=== PATIENT | female | born 1950 | race Caucasian/White ===

== ENCOUNTER → 2017-09-19 16:08 | Outpatient (CLI) | payer MEDICARE, OTHER, SELFPAY ==
[2016-10-09 01:08] VITALS: BP 102/70
[2017-09-19 17:22] LABS: Absolute Lymphocyte Count 1.97 X10^3/ul (0.83-4.51); Absolute Neutrophil Count 3.7 X10^3/uL (2.0-7.7); Basophil# 0.03 X10^3/uL; Basophil% 0.4 % (0-1); Eosinophil# 0.22 X10^3/uL; Eosinophils% 3.3 % (0-5); Hematocrit 34.5 % (37-47); Hemoglobin 11.1 g/dl (12.0-15.0); Lymphocyte # 1.97 X10^3/ul (4.0); Lymphocyte % 29.4 % (19-41); Mean Corp Hgb Conc 32.2 g/gl (32-36); Mean Corpuscular Hgb 29.9 pg (27.0-32.0); Monocyte# 0.74 X10^3/uL; Monocyte% 11.1 % (0-10); Neutrophil # 3.72 X10^3/uL (2.7-7.7); Neutrophil % 55.7 % (47-70); POSITIVE COUNT NO; POSITIVE DIFFERENTIAL NO; POSITIVE MORPHOLOGY NO; Platelet Count 425 K/mm3 (150-450); RBC Distribution Width CV 14.1 % (11.6-14.6); RBC Distribution Width SD 48.2 fl (35.1-43.9); Red Blood Count 3.71 M/mm3 (4.2-5.4); White Blood Count 6.7 K/mm3 (4.4-11.0)
[2017-09-19 17:39] LABS: Valproic Acid (Depakene) Level 59 ug/mL (50-100)
[2017-09-19 17:53] LABS: ALB/GLOB Ratio 0.7 RATIO (0.9-2.4); AST(SGOT) 19 U/L (15-37); Alanine Aminotransfer ALT/SGPT 26 U/L (13-56); Albumin, Serum 3.2 g/dL (3.2-5.0); Alkaline Phosphatase 87 U/L (45-117); Anion Gap 8 (5-15); BUN 24 mg/dL (7-18); BUN/Creat Ratio 24.5 RATIO (10-20); Calcium,Total 8.9 mg/dL (8.5-10.1); Chloride 104 mmol/L (98-107); Creatinine, Serum 0.98 mg/dL (0.55-1.02); EST Glomerular Filtration Rate 60 mL/min (>60); Est Glom Filt Rate - Afr Amer 73 mL/min (>60); Globulin 4.4 g/dL (2.2-4.2); Glucose 87 mg/dL (74-106); Potassium 4.2 mmol/L (3.5-5.1); Protein, Total 7.6 g/dL (6.4-8.2); Sodium Level 139 mmol/L (136-145)
== END ==
PROVIDERS: Family Provider Family Medicine; PCP Family Medicine
DX: F31.70 Bipolar disorder, currently in remission, most recent episode unspecified (principal)
CPT/HCPCS: 36415; 80053; 80164; 85025

== ENCOUNTER → 2017-10-21 11:00 | Outpatient (CLI) | payer MEDICARE, OTHER, SELFPAY ==
[2017-10-23 15:54] LABS: Absolute Lymphocyte Count 1.77 X10^3/ul (0.83-4.51); Absolute Neutrophil Count 2.6 X10^3/uL (2.0-7.7); Basophil# 0.02 X10^3/uL; Basophil% 0.4 % (0-1); Eosinophil# 0.23 X10^3/uL; Eosinophils% 4.5 % (0-5); Hematocrit 36.8 % (37-47); Hemoglobin 11.9 g/dl (12.0-15.0); Lymphocyte # 1.77 X10^3/ul (4.0); Lymphocyte % 34.7 % (19-41); Mean Corp Hgb Conc 32.3 g/gl (32-36); Mean Corpuscular Hgb 30.7 pg (27.0-32.0); Mean Corpuscular Volume 94.8 fL (81-99); Mean Platelet Vol. 10.3 fl (6.2-12.0); Monocyte# 0.44 X10^3/uL; Monocyte% 8.6 % (0-10); Neutrophil # 2.64 X10^3/uL (2.7-7.7); Neutrophil % 51.8 % (47-70); Platelet Count 274 K/mm3 (150-450); RBC Distribution Width CV 15.7 % (11.6-14.6); RBC Distribution Width SD 54.3 fl (35.1-43.9); Red Blood Count 3.88 M/mm3 (4.2-5.4); White Blood Count 5.1 K/mm3 (4.4-11.0)
[2017-10-23 16:03] LABS: POSITIVE COUNT NO; POSITIVE DIFFERENTIAL NO; POSITIVE MORPHOLOGY NO
[2017-10-23 16:13] LABS: ALB/GLOB Ratio 0.8 RATIO (0.9-2.4); AST(SGOT) 19 U/L (15-37); Alanine Aminotransfer ALT/SGPT 25 U/L (13-56); Albumin, Serum 3.4 g/dL (3.2-5.0); Alkaline Phosphatase 76 U/L (45-117); Anion Gap 4 (5-15); BUN 19 mg/dL (7-18); BUN/Creat Ratio 19.5 RATIO (10-20); Calcium,Total 8.8 mg/dL (8.5-10.1); Chloride 105 mmol/L (98-107); Creatinine, Serum 0.97 mg/dL (0.55-1.02); EST Glomerular Filtration Rate 61 mL/min (>60); Est Glom Filt Rate - Afr Amer 74 mL/min (>60); Globulin 4.1 g/dL (2.2-4.2); Glucose 92 mg/dL (74-106); Potassium 4.7 mmol/L (3.5-5.1); Protein, Total 7.5 g/dL (6.4-8.2); Sodium Level 139 mmol/L (136-145)
[2017-10-23 16:21] LABS: Valproic Acid (Depakene) Level 71 ug/mL (50-100)
--- OUTSIDE RECORDS SUMMARY | 2017-12-01 18:19 | XMS RPT_ITS | Clinical Summary ---
:1950 Author Organization [facility] Address [address] [place] [address] Phone Care Team Providers Name Role Phone Alvina VIVAS, Wiley Lerma Conditions or Problems Problem Name Problem Onset Status Entry Provider Comment Standard Annotate Code Date Date Description Nonrheumatic I34.9 Active Atif Velez Nonrheumatic mitral valve (ICD-10-CM 04/17 04/17 Moodispaw mitral valve disorder, ) disorder, unspecified unspecified Body mass Z68.21 Active Atif Velez Body mass index index (BMI) (ICD-10-CM 04/17 04/17 Moodispaw (BMI) 21.0-21.99, ) 21.0-21.9, adult adult Hypothyroidism 52535923 Active Patricia Hernandez Hypothyroidism (SNOMED 04/16 04/[address]) EDEMA 385653316 Active Patricia L Edema (SNOMED 04/16 04/[address]) Medications Medication Instructions Start Stop Generic Name NDC Provider Date Date FUROSEMIDE 40 MG One tablet by / FUROSEMIDE [id number] Atif Velez TABS mouth daily 06 Moodishenrique DUMONT YANETH-C TABS One tablet by / BIOFLAVONOID [id number] Wiley Villa Alvina mouth daily 02 PRODUCTS TABS MEETING/EVENT PLANNER CALCIUM-MAGNESIU One tablet by / CALCIUM-MAGNESIU [id number] Wiley Tinsley M-VITAMIN D mouth daily 02 M-VITAMIN D MEETING/EVENT PLANNER 200-100-33.3 MG-MG-UNIT CAPS EQL LECITHIN One tablet by / LECITHIN [id number] Wiley Tinsley 1200 MG CAPS mouth daily 02 MEETING/EVENT PLANNER TURMERIC One tablet by / TURMERIC [id number] Wiley Tinsley CURCUMIN 500 MG mouth three 02 MEETING/EVENT PLANNER CAPS times daily STRESS 500 One tablet by B [id number] Wiley Tinsley B-COMPLEX TABS mouth daily 02 [id number]-[id number] MEETING/EVENT PLANNER ACID WOMENS One tablet by / MULTIPLE [id number] Wiley Tinsley MULTIVITAMIN mouth daily 02 VITAMINS-MINERAL MEETING/EVENT PLANNER TABS S SLEEP CAPS Two tablets by / VCXEORX-AQYVK-BL [id number] Wiley Villa Roof mouth daily 02 SP-UOJFW-GLORY MEETING/EVENT PLANNER FERROUS One tablet by / FERROUS [id number] Wiley Alvina GLUCONATE 225 mouth daily 02 GLUCONATE MEETING/EVENT PLANNER (27 Fe) MG TABS PREDNISONE 5 MG One tablet by / PREDNISONE [id number] Patricia Hernandez TABS mouth daily 06 Naveen HUGHES PREDNISONE 5 MG One tablet by PREDNISONE [id number] Atif Vleez TABS mouth daily Robbie DUMONT FUROSEMIDE 20 MG One tablet by / FUROSEMIDE [id number] Patricia Hernandez TABS mouth daily 06 Naveen HUGHES MELATONIN 3 MG Two tablet by / MELATONIN 23006250443 Patricia Hernandez TABS mouth at 06 Naveen RN bedtime. As needed MELATONIN 3 MG Two tablet by MELATONIN [id number] Wiley Tinsley TABS mouth at 06 / MEETING/EVENT PLANNER bedtime. As needed FERROUS SULFATE One tablet by / FERROUS SULFATE [id number] Wiley Tinsley 325 (65 Fe) MG mouth daily 02 MEETING/EVENT PLANNER TABS DEPAKOTE ER 250 One tablet by / DIVALPROEX [id number] Patricia Hernandez MG [id number] mouth daily @ 06 SODIUM Naveen HUGHES bedtime LEVOTHYROXINE One tablet by / LEVOTHYROXINE [id number] Patricia Hernandez SODIUM 25 MCG mouth daily 06 SODIUM Naveen RN TABS Medications Administered No information available. Allergies, Adverse Reactions, Alerts Allergy Name Reaction Description Start Date Severity Status Provider CODEINE Critical Active Patricia Hodge RN Results Date Name Value Unit Range Flag Description Replaced Document: Midmark ECG Observations EKG INTERP Sinus Rhythm WITHIN electrocardiogram interpretation NORMAL LIMITS EKG T AXIS 25 deg T wave axis, electrocardiogram EKG QRS AXIS -9 deg QRS axis, electrocardiogram EKG PWAVAXIS 65 deg P wave axis, electrocardiogram QRS INTERVAL 84 ms QRS duration, electrocardiogram ZZ-GE-unk 429 ms GE use only - for LinkLogic import when terms are not otherwise specified QT INTERVAL new path ms QT interval, electrocardiogram OR INTERVAL 136 ms OR interval, electrocardiogram EKGHRTRATE 78 BPM heart rate on electrocardiogram Clinical Lists Update: Preload TSH 2.04 u[iU]/mL thyroid stimulating hormone, serum T4, TOTAL 6.1 ug/dL thyroxine, serum, total LDL 90 mg/dL Cholesterol in LDL [Mass/volume] in Serum or Plasma HDL 66 mg/dL H Cholesterol in HDL [Mass/volume] in Serum or Plasma CHOLESTEROL 177 mg/dL Cholesterol [Mass/volume] in Serum or Plasma TRIGLYCRDES 104 mg/dL Triglyceride [Mass/volume] in Serum or Plasma GLOBULIN 2.4 globulin, serum GLUCOSE SER 118 mg/dL H blood glucose CALCIUM 9.6 mg/dL calcium, serum BUN/CREAT 21 urea nitrogen/creatinine ratio, serum CREATININE 1.4 mg/dL H creatinine, serum BUN 30 mg/dL H urea nitrogen, blood CO2 31 mmol/L carbon dioxide, venous blood CHLORIDE 100 mmol/L chloride, serum POTASSIUM 4.5 mmol/L potassium, serum SODIUM 140 mmol/L sodium, serum PROTEIN, TOT 6.7 g/dL protein, total, serum SGOT (AST) 22 U/L aspartate aminotransferase (SGOT), serum SGPT (ALT) 18 U/L alanine aminotransferase (SGPT), serum ALK PHOS 56 U/L alkaline phosphatase, serum BILI DIRECT 0.11 mg/dL bilirubin, serum, direct BILI TOTAL 0.30 mg/dL bilirubin, serum, total ALBUMIN 2.8 g/dL L albumin, serum MPV 11.0 fL mean platelet volume PLATELETS 158 10*3/mm3 platelet count RDW 15.9 % H red blood cell distribution width MCHC RBC 33.0 g/dL mean corpuscular hemoglobin concentration , RBC MCH 32.6 pg H mean corpuscular hemoglobin, RBC MCV 98.6 fL mean corpuscular volume, RBC HCT 35.1 % L hematocrit, blood HGB 11.6 g/dL L hemoglobin, blood RBC M/UL 3.56 10*6/uL L red blood count WBC BLOOD 5.5 10*9/L leukocyte (white blood cells) count, blood CARDEFECHO 60 % Left ventricular Ejection fraction Office Visit: R FALLRSKAVISHES No Fall risk assessment MEDS REVIEW Done Documentation of current medications (procedure) SMOK STATUS Former smoker Tobacco use [facility] Plan of Care Type Date Detail Appointment 01:00 PM Atif Avalos MD, [address] [facility], [address] , [place], [address], Pending order PFM Pending order Follow Up Appt 1 year Pending order MMM Pending order Follow Up Appt 6 weeks Pending order Echocardiogram (complete) Pending order X-Ray, Chest, PA & Lateral Procedures Code Procedure Name Date Entry Date CPT-78017 EKG (In office) F/U MMM MMM FUA 6 weeks Follow Up Appt 6 weeks Echo Echocardiogram (complete) Vital Signs Date Name Value Unit Description BMI (Body Mass Index) 22.63 kg/m2 Body Mass Index [Ratio] BP Diastolic 78 mm[Hg] blood pressure, diastolic - 8462-4 BP Systolic 122 mm[Hg] blood pressure, systolic - 8480-6 Heart Rate 72 /min pulse rate E&M - 8867-4 Height 58 [in_us] height E&M - 8302-2 Weight Measured 108.3 [lb_av] weight E&M - 3141-9 Height 147.32 cm height in centimeters E&M Respiratory Rate 18 /min respiratory rate E&M - 9279-1 Weight Measured 47.63 kg weight in kilograms E&M
--- OUTSIDE RECORDS SUMMARY | 2017-12-01 18:19 | XMS RPT_ITS | Clinical Summary ---
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 Atif Velez Nonrheumatic mitral valve (ICD-10-CM 04/17 04/17 Robbie mitral valve disorder, ) disorder, unspecified unspecified Body mass Z68.21 Active Atif Velez Body mass index index (BMI) (ICD-10-CM 04/17 04/17 Robbie (BMI) 21.0-21.99, ) 21.0-21.9, adult adult Hypothyroidism 28084811 Active Patricia Hernandez Hypothyroidism (SNOMED 04/16 04/[address]) EDEMA 195723844 Active Patricia Hernandez Edema (SNOMED 04/16 04/[address]) Medications Medication Instructions Start Stop Generic Name NDC Provider Date Date PREDNISONE 5 MG One tablet by PREDNISONE [id number] Patricia Hernandez TABS mouth daily 06 Naveen HUGHES PREDNISONE 5 MG One tablet by PREDNISONE [id number] Atif Velez TABS mouth daily Robbie DUMONT MELATONIN 3 MG Two tablet by MELATONIN 33874993094 Patricia Hernandez TABS mouth at 06 Naveen HUGHES bedtime. As needed DEPAKOTE ER 250 One tablet by DIVALPROEX [id number] Patricia BOOKER [id number] mouth daily @ 06 SODIUM Naveen HUGHES bedtime FUROSEMIDE 20 MG One tablet by FUROSEMIDE 92678968365 Patricia Hernandez TABS mouth daily 06 Naveen HUGHES LEVOTHYROXINE One tablet by LEVOTHYROXINE [id number] Patricia Hernandez SODIUM 25 MCG mouth daily 06 SODIUM Naveen RN TABS Medications Administered No information available. Allergies, Adverse Reactions, Alerts Allergy Name Reaction Description Start Date Severity Status Provider CODEINE Critical Active Patricia Hodge RN Results Date Name Value Unit Range Flag Description Office Visit SMOK STATUS Former smoker Tobacco use [facility] FALLRSKASSES No Fall risk assessment MEDS REVIEW Done Documentation of current medications (procedure) Replaced Document: Midmark ECG Observations EKG INTERP [...] INTERVAL new path ms QT interval, electrocardiogram [place] INTERVAL 136 ms [place] interval, electrocardiogram EKGHRTRATE 78 BPM heart rate [...] 10*9/L leukocyte (white blood cells) count, blood Plan of Care Type Date Detail Appointment 11:00 AM Wiley Tinsley NP, [address], [address], [place], [address], Pending order MMM Pending order Follow Up Appt 6 weeks Pending order Echocardiogram (complete) Pending order X-Ray, Chest, PA & Lateral Pending order Echocardiogram (complete) Procedures Code Procedure Name Date Entry Date CPT-36222 EKG (In office) F/U MMM MMM FUA 6 weeks Follow Up Appt 6 weeks Vital Signs Date Name Value Unit Description BMI (Body Mass Index) 21.94 kg/m2 Body Mass Index [Ratio] BP Diastolic 64 mm[Hg] blood pressure, diastolic - 8462-4 BP Systolic 112 mm[Hg] blood pressure, systolic - 8480-6 Heart Rate 80 /min pulse rate E&M - 8867-4 Height 58 [in_us] height E&M - 8302-2 Height 147.32 cm height in centimeters E&M Respiratory Rate 18 /min respiratory rate E&M - 9279-1 Weight Measured 105 [lb_av] weight E&M - 3141-9 Weight Measured 47.63 kg weight in kilograms E&M
--- OUTSIDE RECORDS SUMMARY | 2017-12-01 18:19 | XMS RPT_ITS | Clinical Summary ---
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 Atif Velez Nonrheumatic mitral valve (ICD-10-CM 04/17 04/17 Moodispaw mitral valve disorder, ) disorder, unspecified unspecified Body mass Z68.21 Active Atif Velez Body mass index index (BMI) (ICD-10-CM 04/17 04/17 Moodispaw (BMI) 21.0-21.99, ) 21.0-21.9, adult adult Hypothyroidism 20567774 Active Patricia Hernandez Hypothyroidism (SNOMED 04/16 04/[address]) EDEMA 864153247 Active Patricia L Edema (SNOMED 04/16 04/[address]) Medications Medication Instructions Start Stop Generic Name NDC Provider Date Date FUROSEMIDE 40 MG One tablet by / FUROSEMIDE [id number] Atif Velez TABS mouth daily 06 Moodisparome DUMONT YANETH-C TABS One tablet by / BIOFLAVONOID 25947773394 Wiley Tinsley mouth daily 02 PRODUCTS TABS CUSTOMS OFFICER CALCIUM-MAGNESIU One tablet by / CALCIUM-MAGNESIU 75896126010 Wiley Tinsley M-VITAMIN D mouth daily 02 M-VITAMIN D CUSTOMS OFFICER 200-100-33.3 MG-MG-UNIT CAPS EQL LECITHIN One tablet by / LECITHIN 23063295954 Wiley Tinsley 1200 MG CAPS mouth daily 02 CUSTOMS OFFICER TURMERIC One tablet by / TURMERIC 69390226200 Wiley Tinsley CURCUMIN 500 MG mouth three 02 CUSTOMS OFFICER CAPS times daily FERROUS SULFATE One tablet by / FERROUS SULFATE 94208488601 Wiley Tinsley 325 (65 Fe) MG mouth daily 02 CUSTOMS OFFICER TABS STRESS 500 One tablet by B [id number] Wiley Tinsley B-COMPLEX TABS mouth daily 02 [id number]-I-BJVKT CUSTOMS OFFICER ACID WOMENS One tablet by MULTIPLE 39181453956 Wiley Tinsley MULTIVITAMIN mouth daily 02 VITAMINS-MINERAL CUSTOMS OFFICER TABS S SLEEP CAPS Two tablets by / ANSCUZB-BWPXZ-QK 13639698025 Wiley Villa Roof mouth daily 02 [id number] CUSTOMS OFFICER PREDNISONE 5 MG One tablet by / PREDNISONE 86006974146 Patricia L TABS mouth daily 06 Hodge RN PREDNISONE 5 MG One tablet by PREDNISONE 83509352903 Atif Velez TABS mouth daily Robbie DUMONT FUROSEMIDE 20 MG One tablet by FUROSEMIDE 85262780462 Patricia Hernandez TABS mouth daily 06 Naveen RN MELATONIN 3 MG Two tablet by / MELATONIN 20350710494 Patricia L TABS mouth at 06 Naveen RN bedtime. As needed MELATONIN 3 MG Two tablet by MELATONIN 36421424919 Wiley Villa Roof TABS mouth at 06 /02 CUSTOMS OFFICER bedtime. As needed DEPAKOTE ER 250 One tablet by / DIVALPROEX [id number] Patricia Hernandez MG [id number] mouth daily @ 06 SODIUM Naveen RN bedtime LEVOTHYROXINE One tablet by / LEVOTHYROXINE [id number] Patricia Hernandez SODIUM 25 MCG mouth daily [...] INTERVAL new path ms QT interval, electrocardiogram [place] INTERVAL 136 ms [place] interval, electrocardiogram EKGHRTRATE 78 BPM heart rate [...] % Left ventricular Ejection fraction Office Visit: JHR FALLRSKAJOHN No Fall risk assessment MEDS REVIEW Done Documentation of current medications (procedure) SMOK STATUS Former smoker Tobacco use [facility] Plan of Care Type Date Detail Appointment 01:00 PM Atif Avalos MD, [address] [facility], [address] , [place], [address], Pending order PFM Pending order Follow Up Appt 1 year Pending order MMM Pending order Follow Up Appt 6 weeks Pending order Echocardiogram (complete) Pending order X-Ray, Chest, PA & Lateral Procedures Code Procedure Name Date Entry Date CPT-73127 EKG (In office) F/U MMM MMM FUA [...]
--- OUTSIDE RECORDS SUMMARY | 2017-12-01 18:19 | XMS RPT_ITS | Clinical Summary ---
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 Atif Velez Nonrheumatic mitral valve (ICD-10-CM 04/17 04/17 Sebastiánishenrique mitral valve disorder, ) disorder, unspecified unspecified Body mass Z68.21 Active Atif Velez Body mass index index (BMI) (ICD-10-CM 04/17 04/17 Robbie (BMI) 21.0-21.99, ) 21.0-21.9, adult adult Hypothyroidism 36441154 Active Patricia Hernandez Hypothyroidism (SNOMED 04/16 04/[address]) EDEMA 047618510 Active Patricia Hernandez Edema (SNOMED 04/16 04/[address]) Medications Medication Instructions Start Stop Generic Name NDC Provider Date Date PREDNISONE 5 MG One tablet by PREDNISONE [id number] Patricia Hernandez TABS mouth daily 06 Naveen HUGHES PREDNISONE 5 MG One tablet by PREDNISONE 06459049159 Atif Velez TABS mouth daily Robbie DUMONT MELATONIN 3 MG Two tablet by MELATONIN 82224388880 Patricia Hernandez TABS mouth at 06 Naveen HUGHES bedtime. As needed DEPAKOTE ER 250 One tablet by DIVALPROEX 69063245200 Patricia BOOKER [id number] mouth daily @ 06 SODIUM Naveen HUGHES bedtime FUROSEMIDE 20 MG One tablet by FUROSEMIDE 54064439407 Patricia Hernandez TABS mouth daily 06 Naveen HUGHES LEVOTHYROXINE One tablet by LEVOTHYROXINE 65920859187 Patricia Hernandez SODIUM 25 MCG mouth daily [...] INTERVAL new path ms QT interval, electrocardiogram [place] INTERVAL 136 ms [place] interval, electrocardiogram EKGHRTRATE 78 BPM heart rate [...] Plan of Care Type Date Detail Appointment 11:30 AM Atif Avalos MD, [address], [address] , [place], [address], Appointment 11:00 AM Wiley Tinsley NP, [address], [address], [place], [address], Pending order MMM Pending order Follow Up Appt 6 weeks Pending order Echocardiogram (complete) Pending order X-Ray, Chest, PA & Lateral Pending order Echocardiogram (complete) Procedures Code Procedure Name Date Entry Date CPT-22117 EKG (In office) F/U MMM MMM FUA 6 weeks Follow Up Appt 6 weeks Vital Signs No information available.
--- OUTSIDE RECORDS SUMMARY | 2017-12-01 18:19 | XMS RPT_ITS | Clinical Summary ---
:1950 Author Organization [facility] Address [address] [place] [address] Phone Care Team Providers Name Role Phone [...] (BMI) 21.0-21.99, ) 21.0-21.9, adult adult Hypothyroidism 20448345 Active Patricia Hernandez Hypothyroidism (SNOMED 04/16 04/[address]) EDEMA 033146573 Active Patricia L Edema (SNOMED 04/16 04/[address]) Medications Medication Instructions Start Stop Generic Name NDC Provider Date Date FUROSEMIDE 40 MG One tablet by / FUROSEMIDE [id number] Atif Velez TABS mouth daily 06 Moodishenrique DUMONT YANETH-C TABS One tablet by / BIOFLAVONOID 12285456634 Wiley Villa Alvina mouth daily 02 PRODUCTS TABS SERVICES CLERK CALCIUM-MAGNESIU One tablet by / CALCIUM-MAGNESIU 10726428932 Wiley Tinsley M-VITAMIN D mouth daily 02 M-VITAMIN D SERVICES CLERK 200-100-33.3 MG-MG-UNIT CAPS EQL LECITHIN One tablet by / LECITHIN 81463810336 Wiley Tinsley 1200 MG CAPS mouth daily 02 SERVICES CLERK TURMERIC One tablet by / TURMERIC 96492342696 Wiley Tinsley CURCUMIN 500 MG mouth three 02 SERVICES CLERK CAPS times daily STRESS 500 One tablet by B 39946841528 Wiley Tinsley B-COMPLEX TABS mouth daily 02 QBTYYJI-X-GUPNQ SERVICES CLERK ACID WOMENS One tablet by / MULTIPLE 99708353329 Wiley Tinsley MULTIVITAMIN mouth daily 02 VITAMINS-MINERAL SERVICES CLERK TABS S SLEEP CAPS Two tablets by / LDXTFDK-BJCJJ-SE 71442438160 Wiley Villa Roof mouth daily 02 AW-CJARI-MJOSM SERVICES CLERK FERROUS One tablet by / FERROUS 15931980101 Wiley Alvina GLUCONATE 225 mouth daily 02 GLUCONATE SERVICES CLERK (27 Fe) MG TABS PREDNISONE 5 MG One tablet by / PREDNISONE 74721790247 Patricia Hernandez TABS mouth daily 06 Naveen HUGHES PREDNISONE 5 MG One tablet by PREDNISONE 63922558126 Atif Velez TABS mouth daily Robbie DUMONT FUROSEMIDE 20 MG One tablet by / FUROSEMIDE 00806428980 Patricia Hernandez TABS mouth daily 06 Naveen HUGHES MELATONIN 3 MG Two tablet by / MELATONIN 00949186480 Patricia Hernandez TABS mouth at 06 Naveen RN bedtime. As needed MELATONIN 3 MG Two tablet by MELATONIN 29795806032 Wiley Tinsley TABS mouth at 06 / SERVICES CLERK bedtime. As needed FERROUS SULFATE One tablet by / FERROUS SULFATE 11639822480 Wiley Tinsley 325 (65 Fe) MG mouth daily 02 SERVICES CLERK TABS DEPAKOTE ER 250 One tablet by / DIVALPROEX 59513517793 Patricia Hernandez MG [id number] mouth daily @ 06 SODIUM Naveen HUGHES bedtime LEVOTHYROXINE One tablet by / LEVOTHYROXINE 48499314516 Patricia Hernandez SODIUM 25 MCG mouth daily [...] INTERVAL new path ms QT interval, electrocardiogram [place] INTERVAL 136 ms [place] interval, electrocardiogram EKGHRTRATE 78 BPM heart rate [...] (procedure) SMOK STATUS Former smoker Tobacco use [facility] Plan of Care Type Date Detail Appointment 01:00 PM Atif Avalos MD, [address] [facility], [address] , [place], [address], Pending order PFM Pending order Follow Up Appt 1 year Pending order MMM Pending order Follow Up Appt 6 weeks Pending order Echocardiogram (complete) Pending order X-Ray, Chest, PA & Lateral Procedures Code Procedure Name Date Entry Date CPT-76786 EKG (In office) F/U MMM MMM FUA [...]
--- OUTSIDE RECORDS SUMMARY | 2017-12-01 18:19 | XMS RPT_ITS | Clinical Summary ---
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 Atif Velez Nonrheumatic mitral valve (ICD-10-CM 04/17 04/17 Moodispaw mitral valve disorder, ) disorder, unspecified unspecified Body mass Z68.21 Active Atif Velez Body mass index index (BMI) (ICD-10-CM 04/17 04/17 Robbie (BMI) 21.0-21.99, ) 21.0-21.9, adult adult Hypothyroidism 40865175 Active Patricia Hernandez Hypothyroidism (SNOMED 04/16 04/[address]) EDEMA 497242744 Active Patricia Hernandez Edema (SNOMED 04/16 04/[address]) Medications Medication Instructions Start Stop Generic Name NDC Provider Date Date FUROSEMIDE 40 MG One tablet by FUROSEMIDE 42563815772 Atif Velez TABS mouth daily Robbie DUMONT PREDNISONE 5 MG One tablet by PREDNISONE 38153646041 Patricia Hernandez TABS mouth daily Naveen HUGHES PREDNISONE 5 MG One tablet by PREDNISONE 64417346462 Atif Velez TABS mouth daily Robbie DUMONT FUROSEMIDE 20 MG One tablet by FUROSEMIDE 06551906383 Patricia Hernandez TABS mouth daily Naveen HUGHES MELATONIN 3 MG Two tablet by MELATONIN 50652138602 Patricia Hernandez TABS mouth at 06 Naveen HUGHES bedtime. As needed DEPAKOTE ER 250 One tablet by DIVALPROEX 47453356567 Patricia Hernandez MG [id number] mouth daily @ 06 CATA Hodge RN bedtime LEVOTHYROXINE One tablet by LEVOTHYROXINE 22457233180 Patricia Hernandez SODIUM 25 MCG mouth daily 06 CATA Hodge RN TABS Medications Administered No information available. Allergies, Adverse Reactions, Alerts Allergy Name Reaction Description Start Date Severity Status Provider CODEINE Critical Active Patricia Hodge RN Results Date Name Value Unit Range Flag Description Office Visit SMOK STATUS Former smoker Tobacco use [facility] FALLRSKASSES No Fall risk assessment MEDS REVIEW [...] INTERVAL new path ms QT interval, electrocardiogram [place] INTERVAL 136 ms [place] interval, electrocardiogram EKGHRTRATE 78 BPM heart rate [...] CARDEFECHO 60 % Left ventricular Ejection fraction Plan of Care Type Date Detail Appointment 11:00 AM Wiley Tinsley NP, [address], [address], [place], [address], Pending order MMM Pending order Follow Up Appt 6 weeks Pending order Echocardiogram (complete) Pending order X-Ray, Chest, PA & Lateral Procedures Code Procedure Name Date Entry Date CPT-18069 EKG (In office) F/U MMM MMM FUA [...]
--- OUTSIDE RECORDS SUMMARY | 2017-12-01 18:19 | XMS RPT_ITS | Clinical Summary ---
:1950 Author Organization [facility] Address [address] [place] [address] Phone Care Team Providers Name Role Phone Naveen HUGHES, Patricia Hernandez Unavailable Conditions or Problems Problem Name Problem Onset Status Entry Provider Comment Standard Annotate Code Date Date Description Hypothyroidism 48250072 Active Patricia Hypothyroidism (SNOMED 04/16 04/[address]) RN EDEMA 147566503 Active Patricia Edema (SNOMED 04/16 04/[address]) RN Medications Medication Instructions Start Stop Generic Name NDC Provider Date Date MELATONIN 3 MG Two tablet by MELATONIN [id number] Patricia Hernandez TABS mouth at 06 Naveen RN bedtime. As needed DEPAKOTE ER 250 One tablet by / DIVALPROEX 65138472077 Patricia Hernandez MG [id number] mouth daily @ 06 SODIUM Naveen HUHGES bedtime PREDNISONE 5 MG One tablet by / PREDNISONE 83676775406 Patricia Hernandez TABS mouth daily 06 Naveen HUGHES FUROSEMIDE 20 MG One tablet by / FUROSEMIDE 71322497226 Patricia Hernandez TABS mouth daily 06 Naveen HUGHES LEVOTHYROXINE One tablet by / LEVOTHYROXINE 46206444771 Patricia Hernandez SODIUM 25 MCG mouth daily 06 SODIUM Naveen HUGHES TABS Medications Administered No information available. Allergies, Adverse Reactions, Alerts Allergy Name Reaction Description Start Date Severity Status Provider CODEINE Critical Active Patricia Hodge RN Results Date Name Value Unit Range Flag Description Clinical Lists Update: Preload LDL 90 mg/dL Cholesterol in LDL [Mass/volume] in Serum or Plasma HDL 66 mg/dL Cholesterol in HDL [Mass/volume] in Serum or Plasma CHOLESTEROL 177 mg/dL Cholesterol [Mass/volume] in Serum or Plasma TRIGLYCRDES 104 mg/dL Triglyceride [Mass/volume] in Serum or Plasma Plan of Care Type Date Detail Appointment 11:30 AM Atif Avalos MD, [address] [facility], [address] , [place], [address], Procedures No information available. Vital Signs No information available.
--- OUTSIDE RECORDS SUMMARY | 2017-12-01 18:19 | XMS RPT_ITS | Clinical Summary ---
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, ) disorder, unspecified unspecified Body mass Z68.21 Active Atif Velez Body mass index index (BMI) (ICD-10-CM 04/17 04/17 Robbie (BMI) 21.0-21.99, ) 21.0-21.9, adult adult Hypothyroidism 33149862 Active Patricia Hernandez Hypothyroidism (SNOMED 04/16 04/[address]) EDEMA [id number] Active Patricia Hernandez Edema (SNOMED 04/16 04/[address]) Medications Medication Instructions Start Stop Generic Name NDC Provider Date Date PREDNISONE 5 MG One tablet by PREDNISONE [id number] Patricia Hernandez TABS mouth daily Naveen HUGHES PREDNISONE 5 MG One tablet by PREDNISONE [id number] Atif Velez TABS mouth daily Robbie DUMONT MELATONIN 3 MG Two tablet by MELATONIN [id number] Patricia Hernandez TABS mouth at 06 Naveen HUGHES bedtime. As needed DEPAKOTE ER 250 One tablet by / DIVALPROEX [id number] Patricia Hernandez MG [id number] mouth daily @ 06 SODIUM Naveen HUGHES bedtime FUROSEMIDE 20 MG One tablet by FUROSEMIDE [id number] Patricia Hernandez TABS mouth daily 06 Naveen HUGHES LEVOTHYROXINE One tablet by 2017/09/ LEVOTHYROXINE [id number] Patricia Hernandez SODIUM 25 MCG mouth daily 06 SODIUM Naveen RN TABS Medications Administered No information available. Allergies, Adverse Reactions, Alerts Allergy Name Reaction Description Start Date Severity Status Provider CODEINE Critical Active Patricia Hodge RN Results Date Name Value Unit Range Flag Description Office Visit SMOK STATUS Former smoker Tobacco [facility] No Fall risk assessment MEDS [...] INTERVAL new path ms QT interval, electrocardiogram MO INTERVAL 136 ms MO interval, electrocardiogram EKGHRTRATE 78 BPM heart rate [...] Detail Appointment 11:00 AM Wiley Tinsley NP, [address], [address], [place], [address], Pending order MMM Pending order Follow Up Appt 6 weeks Pending order Echocardiogram (complete) Pending order X-Ray, Chest, PA & Lateral Procedures Code Procedure Name Date Entry Date CPT-34702 EKG (In office) F/U MMM MMM FUA [...]
--- OUTSIDE RECORDS SUMMARY | 2017-12-01 18:19 | XMS RPT_ITS | Clinical Summary ---
:1950 Author Organization [facility] Address [address] [place] [address] Phone Care Team Providers Name Role Phone [...] (BMI) 21.0-21.99, ) 21.0-21.9, adult adult Hypothyroidism 79962078 Active Patricia Hernandez Hypothyroidism (SNOMED 04/16 04/[address]) EDEMA [id number] Active Patricia Hernandez Edema (SNOMED 04/16 04/[address]) Medications Medication Instructions Start Stop Generic Name NDC Provider Date Date FUROSEMIDE 40 MG One tablet by FUROSEMIDE [id number] Atif Velez TABS mouth daily Robbie DUMONT PREDNISONE 5 MG One tablet by PREDNISONE [id number] Patricia Hernandez TABS mouth daily Naveen HUGHES PREDNISONE 5 MG One tablet by PREDNISONE [id number] Atif Velez TABS mouth daily Robbie DUMONT FUROSEMIDE 20 MG One tablet by FUROSEMIDE [id number] Patricia Hernandez TABS mouth daily Naveen HUGHES MELATONIN 3 MG Two tablet by MELATONIN [id number] Patricia Hernandez TABS mouth at 06 Naveen HUGHES bedtime. As needed DEPAKOTE ER 250 One tablet by DIVALPROEX [id number] Patricia Hernandez MG [id number] mouth daily @ 06 CATA Hodge RN bedtime LEVOTHYROXINE One tablet by LEVOTHYROXINE [id number] Patricia Hernandez SODIUM 25 MCG mouth daily 06 CATA Hodge RN TABS Medications Administered No information available. Allergies, Adverse Reactions, Alerts Allergy Name Reaction Description Start Date Severity Status Provider CODEINE Critical Active Patricia Hodge RN Results Date Name Value Unit Range Flag Description Office Visit SMOK STATUS Former smoker Tobacco use [facility] No Fall risk assessment MEDS [...] INTERVAL new path ms QT interval, electrocardiogram [place] INTERVAL 136 ms [place] interval, electrocardiogram EKGHRTRATE 78 BPM heart rate [...] Detail Appointment 11:00 AM Wiley Tinsley NP, [address], [address], [place], [address], Pending order MMM Pending order Follow Up Appt 6 weeks Pending order Echocardiogram (complete) Pending order X-Ray, Chest, PA & Lateral Procedures Code Procedure Name Date Entry Date CPT-02574 EKG (In office) F/U MMM MMM FUA [...]
== END ==
PROVIDERS: Family Provider Family Medicine; PCP Family Medicine; Visit Provider Family Medicine
DX: Z00.00 Encounter for general adult medical examination without abnormal findings (principal); D64.9 Anemia, unspecified; F31.70 Bipolar disorder, currently in remission, most recent episode unspecified
CPT/HCPCS: 36415; 80053; 80164; 85025

== ENCOUNTER → 2018-06-17 09:37 | Outpatient (CLI) | payer MEDICARE, OTHER, SELFPAY ==
[2018-06-17 12:22] LABS: Valproic Acid (Depakene) Level 85 ug/mL (50-100)
== END ==
PROVIDERS: Family Provider Family Medicine; PCP Family Medicine
DX: F31.9 Bipolar disorder, unspecified (principal)
CPT/HCPCS: 36415; 80164

== ENCOUNTER → 2018-12-25 11:13 | Outpatient (CLI) | payer MEDICARE, OTHER, SELFPAY ==
[2018-06-17 13:29] VITALS: BMI 24.0
[2018-12-25 14:02] LABS: Absolute Lymphocyte Count 1.68 X10^3/ul (0.83-4.51); Absolute Neutrophil Count 3.5 X10^3/uL (2.0-7.7); Basophil# 0.03 X10^3/uL; Basophil% 0.5 % (0-1); Eosinophil# 0.14 X10^3/uL; Eosinophils% 2.3 % (0-5); Hematocrit 38.4 % (37-47); Hemoglobin 12.7 g/dl (12.0-15.0); Lymphocyte # 1.68 X10^3/ul (4.0); Lymphocyte % 27.7 % (19-41); Mean Corp Hgb Conc 33.1 g/gl (32-36); Mean Corpuscular Hgb 30.8 pg (27.0-32.0); Mean Corpuscular Volume 93.2 fL (81-99); Mean Platelet Vol. 10.4 fl (6.2-12.0); Monocyte# 0.68 X10^3/uL; Monocyte% 11.2 % (0-10); Neutrophil # 3.53 X10^3/uL (2.7-7.7); Neutrophil % 58.1 % (47-70); POSITIVE COUNT NO; POSITIVE DIFFERENTIAL NO; POSITIVE MORPHOLOGY NO; Platelet Count 274 K/mm3 (150-450); RBC Distribution Width SD 51.5 fl (35.1-43.9); Red Blood Count 4.12 M/mm3 (4.2-5.4); White Blood Count 6.1 K/mm3 (4.4-11.0)
[2018-12-25 14:15] LABS: Valproic Acid (Depakene) Level 79 ug/mL (50-100)
[2018-12-25 14:16] LABS: ALB/GLOB Ratio 0.8 RATIO (0.9-2.4); AST(SGOT) 24 U/L (15-37); Alanine Aminotransfer ALT/SGPT 36 U/L (13-56); Albumin, Serum 3.5 g/dL (3.2-5.0); Alkaline Phosphatase 77 U/L (45-117); Anion Gap 7 (5-15); BUN 21 mg/dL (7-18); BUN/Creat Ratio 20.4 RATIO (10-20); Calcium,Total 9.2 mg/dL (8.5-10.1); Chloride 104 mmol/L (98-107); Creatinine, Serum 1.03 mg/dL (0.55-1.02); EST Glomerular Filtration Rate 57 mL/min (>60); Est Glom Filt Rate - Afr Amer 69 mL/min (>60); Globulin 4.4 g/dL (2.2-4.2); Glucose 73 mg/dL (74-106); Protein, Total 7.9 g/dL (6.4-8.2); Sodium Level 140 mmol/L (136-145)
== END ==
PROVIDERS: Family Provider Family Medicine; PCP Family Medicine
DX: F31.9 Bipolar disorder, unspecified (principal)
CPT/HCPCS: 36415; 80053; 80164; 85025

== ENCOUNTER → 2019-04-28 12:46 | Outpatient (CLI) | payer MEDICARE, OTHER, SELFPAY ==
[2018-06-17 13:29] VITALS: BMI 24.0
[2019-04-28 14:32] LABS: Absolute Lymphocyte Count 1.31 X10^3/uL (0.83-4.51); Absolute Neutrophil Count 3.9 X10^3/uL (2.0-7.7); Basophil# 0.07 X10^3/uL; Basophil% 1.1 % (0-1); Eosinophil# 0.18 X10^3/uL; Eosinophils% 2.9 % (0-5); Hematocrit 38.8 % (37-47); Hemoglobin 12.7 g/dL (12.0-15.0); Lymphocyte # 1.31 X10^3/ul (4.0); Lymphocyte % 20.8 % (19-41); Mean Corp Hgb Conc 32.7 g/dL (32-36); Mean Corpuscular Hgb 31.5 pg (27.0-32.0); Mean Corpuscular Volume 96.3 fL (81-99); Mean Platelet Vol. 10.8 fl (6.2-12.0); Monocyte# 0.81 X10^3/uL; Monocyte% 12.9 % (0-10); NRBC Flagged by Analyzer 0 % (0-5); Neutrophil # 3.91 X10^3/uL (2.7-7.7); Platelet Count 270 K/mm3 (150-450); RBC Distribution Width CV 14.2 % (11.6-14.6); RBC Distribution Width SD 50.2 fl (35.1-43.9); Red Blood Count 4.03 M/mm3 (4.2-5.4); White Blood Count 6.3 K/mm3 (4.4-11.0)
[2019-04-28 14:44] LABS: ALB/GLOB Ratio 0.8 RATIO (0.9-2.4); AST(SGOT) 17 U/L (15-37); Alanine Aminotransfer ALT/SGPT 24 U/L (13-56); Albumin, Serum 3.3 g/dL (3.2-5.0); Alkaline Phosphatase 81 U/L (45-117); Anion Gap 7 (5-15); BUN 32 mg/dL (7-18); BUN/Creat Ratio 31.4 RATIO (10-20); Calcium,Total 8.8 mg/dL (8.5-10.1); Chloride 104 mmol/L (98-107); Creatinine, Serum 1.02 mg/dL (0.55-1.02); EST Glomerular Filtration Rate 57 mL/min (>60); Est Glom Filt Rate - Afr Amer 69 mL/min (>60); Globulin 4.1 g/dL (2.2-4.2); Glucose 92 mg/dL (74-106); Potassium 4.1 mmol/L (3.5-5.1); Protein, Total 7.4 g/dL (6.4-8.2); Sodium Level 139 mmol/L (136-145)
[2019-04-28 15:22] LABS: Valproic Acid (Depakene) Level 60 ug/mL (50-100)
== END ==
PROVIDERS: Family Provider Family Medicine; PCP Family Medicine
DX: F31.9 Bipolar disorder, unspecified (principal)
CPT/HCPCS: 36415; 80053; 80164; 85025

== ENCOUNTER → 2019-06-25 12:40 | Outpatient (CLI) | payer MEDICARE, OTHER, SELFPAY ==
[2019-06-21 10:51] VITALS: BMI 23.5
--- NOTE | 2019-06-25 12:44 | CT_ITS ---
STUDY: CT CHEST WITH CONTRAST REASON FOR EXAM: Female, 68 years old. Right lower lobe lung mass, history of pneumonia. RADIATION DOSAGE (If Supplied By Facility): CTDIvol = ( 7.42 ) mGy, DLP = ( 153.87 ) mGycm TECHNIQUE: Transaxial imaging was performed following intravenous administration of IV 100mL Isovue-370 100. Multiplanar coronal and sagittal images were reformatted. Individualized dose optimization techniques were used for this CT. COMPARISON: None. FINDINGS: The lungs are suboptimal with decreased inspiratory effort and vascular crowding. There is evidence of mild mosaic pattern which may be seen with small airway disease. There is right lower lobe posterior subpleural density which may indicate a pneumonia versus filtrate. There is no demonstrated pleural abnormality. Heart is mildly enlarged. Heart is slightly enlarged. There is a moderate right-sided pleural effusion. Normal mediastinum. Normal hilar regions. Normal enhanced pulmonary arteries. Normal aorta arch and descending thoracic aorta. Normal osseous structures. Upper abdomen: The visualized upper abdominal viscera are unremarkable. CT/Chest WITH Contrast IMPRESSION: No distinct nodule identified. Right lower lobe pleural-based density/mass with appearance suggestive of round atelectasis. Electronically Signed: Desi Sherman MD at 8:16 EST , Service support ,
[2019-06-25 12:56] LABS: CREATININE FINGERSTICK 0.7 mg/dL (0.55-1.02)
== END ==
PROVIDERS: Family Provider Family Medicine; PCP Family Medicine; Referring Provider Internal Medicine Critical Care Medicine; Visit Provider Internal Medicine Critical Care Medicine
DX: R91.8 Other nonspecific abnormal finding of lung field (principal)
CPT/HCPCS: 71260; Q9967

== ENCOUNTER → 2019-07-02 20:00 | Outpatient (CLI) | payer MEDICARE, OTHER, SELFPAY ==
[2019-06-21 10:51] VITALS: BMI 23.5
== END ==
PROVIDERS: Family Provider Family Medicine; PCP Family Medicine; Referring Provider Internal Medicine Critical Care Medicine; Visit Provider Internal Medicine Critical Care Medicine
DX: G47.33 Obstructive sleep apnea (adult) (pediatric) (principal)
CPT/HCPCS: 95811

== ENCOUNTER → 2019-10-14 14:26 | Outpatient (CLI) | payer MEDICARE, OTHER, SELFPAY ==
[2019-09-01 06:45] VITALS: BMI 24.4
--- NOTE | 2019-10-14 14:27 | CT_ITS ---
STUDY: CT CHEST WITHOUT CONTRAST REASON FOR EXAM: Female, 69 years old. LUNG NODULES, FORMER SMOKER, LUNG COLLAPSE 2013 RADIATION DOSAGE (If Supplied By Facility): CTDIvol = ( 6.64 ) mGy, DLP = ( 199.12 ) mGycm TECHNIQUE: Transaxial imaging was performed without the administration of intravenous contrast material. Individualized dose optimization techniques were used for this CT. COMPARISON: CT chest 06/25/2019, 10/16/2015 And 02/09/14. FINDINGS: Stable, small right pleural effusion. Stable rounded consolidation in the posterior right lower lobe felt to represent rounded atelectasis. There is a new, small loculated left pleural effusion with mild adjacent left lower lobe atelectasis. Stable 3-4 mm right middle lobe nodule on series 2 image 59. Stable 3-4 mm left lower lobe subpleural nodule on image 63. Stable clustered nodularity in the peripheral left upper lobe on image 55-59 is felt to represent inspissated mucus and stable nodular opacity in the left upper lobe along the fissure are unchanged since 06/25/2019, but are new since 2015. No pneumothorax. Normal heart and pericardium. Mild coronary artery calcification. Normal mediastinum. Normal hilar regions. Normal unenhanced pulmonary arteries. There is mild atherosclerotic calcification of the aortic arch and descending thoracic aorta. Normal osseous structures. There is no demonstrated abnormality of the visualized upper abdomen. CT/Chest without Contrast IMPRESSION: There is a new, small loculated left pleural effusion. Stable, small right pleural effusion and right lower lobe rounded atelectasis. There are stable 3 to 4 mm pulmonary nodules. There is a region of clustered nodularity in the peripheral left upper lobe, unchanged since 2018 but new since 2015. This is felt to represent inspissated mucus. Attention on follow-up is recommended. Electronically Signed: Solitario Floyd, at 13:07 EST Tel , Service support ,
== END ==
PROVIDERS: PCP Family Medicine; Referring Provider Internal Medicine Critical Care Medicine; Visit Provider Internal Medicine Critical Care Medicine
DX: R91.8 Other nonspecific abnormal finding of lung field (principal)
CPT/HCPCS: 71250

== ENCOUNTER → 2019-12-06 08:30 | Outpatient (CLI) | payer MEDICARE, OTHER, SELFPAY ==
[2019-11-25 10:22] VITALS: BMI 24.4
--- NOTE | 2019-12-06 06:40 | PET_ITS ---
PROCEDURE: WHOLE BODY PET/CT SCAN, MID SKULL TO MID THIGH REASON FOR EXAM: Lung nodules, history of lung collapse COMPARISON EXAMINATION: CT 10/14/2019, 06/25/2019. TECHNIQUE: Following the intravenous administration of 15.8 mCi of F-18 the deoxyglucose, multiplanar imaging acquisitions of the neck, chest, abdomen/pelvis to the mid thigh, obtained at 1 hour post radiopharmaceutical administration. Interpretation is with co-registeration of similar anatomic distribution of CT. Findings: Normal and physiologic distribution of radioisotope identified in the expected intensity of the hepatic and splenic parenchyma, urinary tract and gastrointestinal structures. There is gross anatomic distribution of the intracranial contents. INDEX LESION SIZE SUV INTERPRETATION: 1. None CT portion of the exam: Localized consolidation of the subpleural right lower lobe with radiation towards the right hilum is compatible with rounded atelectasis. Small right and trace left pleural effusions are redemonstrated, similar since 10/14/2019. No pleural-based masses seen. Clustered group of nodules and micronodules in the lateral and posterior lingula on image 92-97 stable with only minimal FDG activity (SUV 1.9). Minimal linear FDG activity along the periphery of the left pleural fluid does not meet criteria for viable neoplasm. The largest single nodule measures 8 mm on image 98 of series 2, stable. No new pulmonary nodule. L3-4 millimeter nodule in the right middle lobe on the prior chest CT is not clearly seen on this exam. Scattered fibrotic scarring of multiple pulmonary lobes, lower zone dominant. Heart remains mildly enlarged. Normal mediastinum. Normal hilar regions. Normal unenhanced pulmonary arteries. There is atherosclerotic calcification of the aortic arch with tortuosity and elongation of the aortic arch and descending thoracic aorta. Normal liver. Tiny gallstones layer dependently within the gallbladder lumen. Normal spleen. Normal pancreas. Normal bilateral adrenal glands. Normal right kidney. Normal left kidney. Normal visualized stomach. Normal small intestine. Moderate diffuse fecal retention without colon wall thickening. There is non-visualization of the appendix. There is atherosclerosis of the abdominal aorta and iliac arteries. Normal inferior vena cava. Decompressed, poorly evaluated urinary bladder. Degenerative changes of the spine without lytic or sclerotic bone lesions. PET/PET/CT Tumor Base -Thigh Init IMPRESSION: 1. Clustered group of nodules in the lingula measuring up to 8 mm do NOT meet SUV criteria for viable neoplasm. The nodules are stable since 06/25/2019. Continued follow-up with chest CT imaging recommended according to Fleischner Society recommendations. 2. Small loculated left pleural effusion, stable. Minimal FDG activity along the periphery does not meet criteria for viable neoplasm, likely reactive/inflammatory. 3. Stable rounded atelectasis of the right lower lobe. 4. Chronic changes, as detailed above. Electronically Signed: Brandon Sharpe MD (Brooks) at 11:29 EDT , Service support ,
== END ==
PROVIDERS: PCP Family Medicine; Referring Provider Internal Medicine Critical Care Medicine; Visit Provider Internal Medicine Critical Care Medicine
DX: R91.8 Other nonspecific abnormal finding of lung field (principal)
CPT/HCPCS: 78815; A9552

== ENCOUNTER → 2020-01-11 11:00 | Outpatient (CLI) | payer MEDICARE, OTHER, SELFPAY ==
[2019-12-16 12:28] VITALS: BMI 24.4
== END ==
PROVIDERS: PCP Family Medicine; Visit Provider Internal Medicine Critical Care Medicine
DX: G47.33 Obstructive sleep apnea (adult) (pediatric) (principal)
CPT/HCPCS: 98960; G0463

== ENCOUNTER → 2020-08-08 20:14 | Outpatient (CLI) | payer MEDICARE, OTHER, SELFPAY ==
[2020-03-28 07:50] VITALS: BMI 23.6
== END ==
PROVIDERS: PCP Family Medicine; Referring Provider Internal Medicine Critical Care Medicine; Visit Provider Internal Medicine Critical Care Medicine
DX: G47.33 Obstructive sleep apnea (adult) (pediatric) (principal)
CPT/HCPCS: 95811

== ENCOUNTER → 2020-12-27 14:46 | Outpatient (CLI) | payer MEDICARE, OTHER, SELFPAY ==
[2020-09-08 09:38] VITALS: BMI 26.3
--- NOTE | 2020-12-27 14:52 | CT_ITS ---
HISTORY: surveilence of nodule TECHNIQUE: Helically acquired images were obtained of the chest. A radiation dose optimization technique was used for this scan. IV Contrast dosage and agent: None. COMPARISON: PET/CT from December 06, 2019. A report is available from the CT scan of the chest dated October 14, 2019. FINDINGS: # of images incl. paperwork: [id number] LUNGS AND LARGE AIRWAYS: Round atelectasis within the right lower lobe is similar. Peripheral nodularity abutting the fissure in the pleura of the left upper lobe inferiorly is similar to the previous studies. Scarring within the right upper lobe the right middle lobe and the right lower lobe remains. Loculated peripheral left pleural effusion and loculated right pleural effusion are all similar. Tiny pleural nodule within the posterior medial aspect of the left lower lobe is unchanged.. PLEURA: Loculated pleural effusions are similar BONES: No lytic or blastic metastasis are perceived. Kyphoscoliosis. Multilevel degenerative disc disease. HEART AND PERICARDIUM: Heart size is normal. There is no pericardial effusion. VESSELS: Thoracic aorta is not dilated. MEDIASTINUM AND TRINI: There is no mediastinal or hilar adenopathy. Esophagus is unremarkable. There is no hiatal hernia. SOFT TISSUES: Included thyroid gland is unremarkable. There is no axillary, supraclavicular or lower cervical adenopathy. UPPER ABDOMEN: Distended stomach with liquid. CT/Chest without Contrast IMPRESSION: Stable appearance to right lower lobe round atelectasis. Stable appearance to nodularity within the lingula peripherally, discussed as likely representing inspissated mucus, and have been discussed on previous CTs, as well as the PET/CT of December 06, 2019. Stable loculated left and right pleural effusions right larger than left. Individualized dose optimization techniques were used for this CT. at 2200 Reported and signed by: Silas Youssef MD Electronically Signed: Silas Youssef MD at 21:58 EDT Tel , Service support ,
== END ==
PROVIDERS: Referring Provider Nurse Practitioner Acute Care; Visit Provider Nurse Practitioner Acute Care
DX: R91.1 Solitary pulmonary nodule (principal)
CPT/HCPCS: 71250

== ENCOUNTER → 2021-03-22 09:00 | Outpatient (CLI) | payer MEDICARE, OTHER, SELFPAY ==
[2020-09-08 09:38] VITALS: BMI 26.3
== END ==
PROVIDERS: Visit Provider Nurse Practitioner Acute Care
DX: G47.33 Obstructive sleep apnea (adult) (pediatric) (principal)
CPT/HCPCS: 98960; G0463

== ENCOUNTER → 2021-05-03 09:24 | Outpatient (CLI) | payer MEDICARE, OTHER, SELFPAY ==
--- NOTE | 2021-05-03 09:28 | BI_ITS ---
MAMMOGRAPHY - BILATERAL SCREENING REASON FOR EXAM: Female, 70 years old. Routine annual screening examination. PERTINENT HISTORY: Non-contributory. TECHNIQUE: Digital bilateral breast deanne (3D mammographic acquisition) in the CC and MLO projections. 2-D mediolateral oblique (MLO) and craniocaudad (CC) views of both breasts were obtained. CAD: Full Field Digital Mammography with Computer Added Detection was performed. COMPARISON: Comparison is made with prior study dated 09/10/2016 and 01/08/2013. FINDINGS: Breast Composition: The breasts are extremely dense, which lowers the sensitivity of mammography. There are no dominant masses or suspicious calcifications. No other significant abnormalities are identified. There has been no significant change since the prior study. BI/SCRN MAMM (CAD)W/DEANNE BILAT IMPRESSION: Stable bilateral screening mammogram. Yearly follow-up mammogram recommended. (A) ASSESSMENT CATEGORY: BIRADS Category 1: Negative. A letter regarding these results will be sent to the patient by the facility within 30 days. Approximately 10% of breast cancers are not detected by mammography. A normal mammogram should not delay biopsy of a clinically suspicious abnormality. [id number] Electronically Signed: Colin Jeronimo MD at 11:09 EDT , Service support ,
--- NOTE | 2021-05-03 09:36 | BD_ITS ---
STUDY: DUAL ENERGY X-RAY ABSORPTIOMETRY / DXA REASON FOR EXAM: Female, 70 years old. M85.89 TECHNIQUE: Bone Mineral Density (BMD) measurements of lumbar spine and bilateral hips were obtained. COMPARISON: None. FINDINGS: Lumbar Spine (L1-L4): g/cm2 (0.779) / T-score (-2.4) / Z-score (-0.3) Findings are suggestive of osteopenia with a high fracture risk. Left Femur Total: g/cm2 (0.666) / T-score (-2.3) / Z-score (-0.8) Left Femoral Neck: g/cm2 (0.542) / T-score (-2.8) / Z-score (-1.0) Right Femur Total: g/cm2 (0.737) / T-score (-1.7) / Z-score (-0.2) Right Femoral Neck: g/cm2 (0.550) / T-score (-2.7) / Z-score (-0.9) BD/Dexa Bone Density Study IMPRESSION: The patient is considered osteoporotic as outlined below according to World Ronnie Organization (WHO) criteria with a high fracture risk. Reference Information: The T-score is the number of standard deviations above or below the standard which is normal for young adults at their peak bone mineral density. The World Health Organization (WHO) interprets the T-scores as follows: Above -1 Normal bone density Between -1 and -2.5 Osteopenia Equal to / or below -2.5 Osteoporosis As a practical clinical guideline, osteopenia may be graded as follows: Mild -1 through -1.5 Moderate -1.6 through -2.0 Severe -2.1 through -2.4 The Z-score is the number of standard deviations above or below age-matched controls. A Z-score of less than -1.5 would be considered abnormal. References: 1. NIH Osteoporosis and Related Bone Diseases www osteo.org 2. International Society for Clinical Densitometry www iscd.org 3. National Osteoporosis Foundation www nof.org Electronically Signed: Colin Jeronimo MD at 15:30 EDT , Service support ,
== END ==
PROVIDERS: Referring Provider Family Medicine; Visit Provider Family Medicine
DX: Z12.31 Encounter for screening mammogram for malignant neoplasm of breast (principal); M85.89 Other specified disorders of bone density and structure, multiple sites
CPT/HCPCS: 77063; 77067; 77080

== ENCOUNTER 2021-06-18 17:18 | Emergency (ER) | payer MEDICARE, OTHER, SELFPAY ==
[2021-06-18 17:20] VITALS: BP 118/73; PULSE 74; RESP 18; TEMP 36; O2SAT 98; BMI 24.6
[2021-06-18 20:55] VITALS: RESP 17
--- NOTE | 2021-06-18 22:01 | US_ITS ---
STUDY: VENOUS DOPPLER ULTRASOUND - RIGHT LOWER EXTREMITY REASON FOR EXAM: Female, 70 years old. - PAIN TECHNIQUE: Ultrasound evaluation of the deep vein system to include rosa-scale imaging and compression was performed. Rosa-scale imaging and Doppler sonographic evaluation, including duplex spectral analysis and qualitative color flow sonography, was performed. COMPARISON: None. FINDINGS: Common Femoral Vein: Normal compression, spontaneity and augmentation. Normal color Doppler. Common Femoral Vein/Greater Saphenous Junction: Normal compression. Femoral Proximal: Normal compression. Femoral Middle: Normal compression, spontaneity and augmentation. Normal color Doppler. Femoral Distal: Normal compression. Popliteal Vein: Normal compression, spontaneity and augmentation. Normal color Doppler. Posterior Tibial Vein: Normal compression. Peroneal Vein: Normal compression. A partially calcified structure is noted lateral to the right knee. US/Venous Duplex Imag/Limited/Uni IMPRESSION: No deep venous thrombosis of the lower extremity. Electronically Signed: Gabriel Henry DO at 23:21 EST Tel [phone], Service support ,
--- NOTE | 2021-06-18 22:05 | RAD_ITS ---
STUDY: X-RAY - RIGHT KNEE REASON FOR EXAM: Female, 70 years old. Injury/Pain TECHNIQUE: 4 view(s) of the knee. COMPARISON: None. FINDINGS: Normal visualized distal femur. Normal visualized proximal tibia and fibula. Normal proximal tibiofibular articulation. Normal medial femorotibial compartment. Normal lateral femorotibial compartment. Normal patellofemoral articulation. The soft tissue structures are unremarkable. RAD/Knee 4 or More Views IMPRESSION: No acute bony injury of the knee. Electronically Signed: Gabriel Henry DO at 22:28 EST Tel [phone], Service support ,
--- NOTE | 2021-06-18 22:23 | ED.VIS.LOWEX ---
HPI History of Present Illness HPI Narrative: Patient presents with pain to her right proximal fibula that has been getting worse over the past 2 days. Patient states she has had pain in her right leg for approximately 7 months. Patient states this pain has only been present for the past 2 days. Patient describes it as burning and throbbing. Patient states it is better with ice. Patient states it is worse with weightbearing. Patient denies any paresthesias or weakness. Patient denies any trauma or injury. Chief Complaint: Lower Extremity Injury Informant: patient Onset/Context/Timing Onset: Days (2) Context: Gradual Onset Timing: Continuous Quality of Pain: Burning and Throbbing Location: Right proximal fibula Worsened by: Weightbearing Relieved by: Ice Associated Symptoms Associated Symptoms: Negative for Parasthesia, Weakness and Loss of Funtion [facility] Medical History (Updated 06/18/21 @ 23:[address] Andrew Raimrez DO) Bipolar disorder Chronic back pain Hypothyroidism Nonrheumatic mitral (valve) prolapse Home Medications levothyroxine 25 mcg PO DAILY 02/11/14 [History Last Taken Unknown] divalproex 500 mg tablet,delayed release 500 mg PO QHS tab 06/17/18 [History Last Taken Unknown] meloxicam 15 mg PO DAILY PRN #10 tab 06/18/21 [Rx Last Taken Unknown] Allergy/AdvReac Type Severity Reaction Status Date / Time codeine AdvReac Intermediate Vomiting Verified 06/18/21 17:19 Family History Mother Diabetes Cancer Grandmother Diabetes Hypertension Surgical History History of cataract surgery History of hammer toe correction History of thoracentesis Social History Smoking Status: Former smoker how long ago did patient quit smokin second hand exposure: No alcohol intake: never substance use type: does not use ROS ROS ED Constitutional Constitutional ED: Denies chills or fever(s) Eyes Eyes: Denies blurry vision or change in vision ENT ENT ED: Denies rhinorrhea or sore throat Cardiovascular Cardiovascular: Denies chest pain or palpitations Respiratory/Chest Respiratory/Chest: Denies cough or dyspnea Gastrointestinal Gastrointestinal: Denies nausea or vomiting Genitourinary Genitourinary ED: Denies dysuria or hematuria Musculoskeletal Musculoskeletal: Reports neck pain; Denies back pain Integumentary Denies abscess or rash Neurologic Neurologic: Denies headache(s) or weakness Allergic/Immunologic Allergic/Immunologic ED: Denies mouth swelling or urticaria EXAM Physical Exam Const Vital Signs: 06/18/21 17:20 06/18/21 20:55 Temperature 96.8 F L Temperature Source Temporal Pulse Rate 74 Respiratory Rate 18 17 Blood Pressure 118/73 Blood Pressure Mean 88 Pulse Ox 98 Oxygen Delivery Method Room Air Room Air Positive well nourished and well developed General Appearance ED: well developed Neck full ROM Extremity Extremity Narrative: There is tenderness over the right proximal fibula. There is no edema or ecchymosis. There is some edema over the right lower calf area. There is no ecchymosis. There is no bony crepitance or step-off. Range of motion was slightly limited in flexion of the right knee and inversion of the right ankle secondary to pain. There is no laxity with varus or valgus stress testing of the knee. There is no laxity with Sarah's test. There is no obvious deformity noted. Pedal pulses are equal bilaterally. Sensation was intact to light touch in all digits. Neuro oriented x3, CN's II-XII intact bilaterally, moves all extremities and no sensory deficits noted Sensorium / Orientation: alert Motor Exam: strength 5/5 throughout Psych mental status grossly normal MDM MDM MDM Narrative Medical decision making narrative: X-rays of the right knee were obtained. There are 4 views. On my interpretation, there is no acute fracture or dislocation. There are some degenerative changes noted. There is no soft tissue swelling. There is no effusion. Radiologist also interpreted the x-rays and agrees. Venous duplex of the right lower extremity was obtained. There is no evidence of DVT. This was interpreted by the radiologist and reviewed by myself. Patient was given a dose of Sanford here. Patient was also given a dose of ibuprofen. Patient was given a prescription for meloxicam. Patient was instructed use ice to the area. Patient was instructed to keep her leg elevated. Patient states she has an appoint with her primary care physician tomorrow. Patient was instructed to keep this appointment. Patient was instructed to return if worse in any way. Patient understood and was agreeable with the plan. All questions were answered. Radiography Diagnostic Testing: Clinical Impression(s) from Imaging Studies Venous Duplex 06/18/21 22:01 IMPRESSION: No deep venous thrombosis of the lower extremity. Electronically Signed: Gabriel DO Carl at 23:21 EST Tel [phone], Service support , Knee X-Ray 06/18/21 22:05 IMPRESSION: No acute bony injury of the knee. Electronically Signed: Gabriel Henry DO at 22:28 EST Tel [phone], Service support , ADDENDUM: 06/18/21 2329 Discharge Plan Triage Chief Complaint: Lower Extremity Injury ED Provider: Andrew Ramirez Dx/Rx/DC Orders Clinical Impression: Tendinitis of right knee Instructions: ED Tendonitis Prescriptions: New meloxicam 15 mg tablet 15 mg PO DAILY PRN (Reason: pain) Qty: 10 RF: 0 No Action divalproex [Depakote] 500 mg tablet,delayed release (DR/EC) 500 mg PO QHS RF: 0 levothyroxine 25 MCG tablet 25 mcg PO DAILY RF: 0 Primary Care Provider: Libby Luque Referrals: Libby Luque MD [Primary Care Provider] - 3-5 Days Disposition Disposition: Home, Self Care
[2021-06-19] MEDS: HYDROcodone Bitartrate/Apap 5/325 Tablet PO (00:05)
[2021-06-19 00:06] VITALS: BP 122/68; PULSE 71; RESP 18; O2SAT 96
[2021-06-19] MEDS: Ibuprofen 600 MG Tablet PO (00:06)
== END 2021-06-19 00:07 | disposition home or self-care (01) ==
PROVIDERS: Emergency Provider Emergency Medicine; PCP Family Medicine
DX: M77.9 Enthesopathy, unspecified (principal); F31.9 Bipolar disorder, unspecified; G89.29 Other chronic pain; M54.9 Dorsalgia, unspecified; E03.9 Hypothyroidism, unspecified; Z87.891 Personal history of nicotine dependence; I34.1 Nonrheumatic mitral (valve) prolapse; M79.604 Pain in right leg
CPT/HCPCS: 73564; 93971; 99283

== ENCOUNTER → 2021-12-04 | Outpatient (CLI) | payer MEDICARE, OTHER, SELFPAY ==
--- NOTE | 2021-12-04 08:23 | CT_ITS ---
INDICATION: Persistent atypical chest pain, fever EXAMINATION: CT CHEST WITHOUT CONTRAST - CT Chest W/O Contrast Injection TECHNIQUE: Helically acquired images were obtained of the chest. A radiation dose optimization technique was used for this scan. IV Contrast dosage and agent: None. COMPARISON: 12/27/2020 FINDINGS: LUNGS, PLEURA AND LARGE AIRWAYS: Lung windows show underlying emphysema. There is a stable loculated large right pleural effusion with associated round atelectasis in the right lung base. There is also a stable nodular density abutting the left upper lobe pleural surface and fissure. There is a stable 6 mm nodule in the lingular on axial image 59. There is stable architectural distortion and pleural thickening in the right hemithorax. THYROID: No thyroid lesions. HEART AND PERICARDIUM: Heart size is normal. No pericardial effusion. CORONARY ARTERIES: Coronary artery calcification is seen. VESSELS: Thoracic aorta is not dilated. MEDIASTINUM AND TRINI: No mediastinal or hilar adenopathy. Esophagus is unremarkable. There is a small hiatal hernia UPPER ABDOMEN: No acute pathology. BONES: Degenerative bony changes CT/Chest without Contrast IMPRESSION: Overall, little significant interval change noted since the previous study. There is persistent fibrotic scarring and pleural thickening in the right lung base with stable loculated right pleural effusion and round atelectasis. Stable noncalcified nodules in the lingula Calcified coronary vessels No suspicious adenopathy Degenerative bony changes Electronically Signed: Alexander Bush MD at 13:58 EDT ,
== END | disposition home or self-care (01) ==
LOC: CT 08:22
PROVIDERS: PCP Family Medicine; Referring Provider Internal Medicine Critical Care Medicine; Visit Provider Internal Medicine Critical Care Medicine
DX: R91.1 Solitary pulmonary nodule (principal)
CPT/HCPCS: 71250

== ENCOUNTER → 2022-03-11 | Outpatient (CLI) | payer MEDICARE, OTHER, SELFPAY ==
--- NOTE | 2022-03-11 | FLU_PTH ---
PATIENT: RICARDA OLIVA LOC: U#:[id number] AGE/SX: 71/F ROOM: RE03/11/[address]: Dr. Sagar Resendiz MD : 1950 BED: DIS: 03/11/2022 SPEC #: [id number] RECD: 03/11/22 13:02 STATUS: GABRIELLA YEYO #: [id number] RADHA: 03/11/22 00:[address]: Sagar Resendiz DEPT: CYTOLOGY RECD BY: Cathleen Rasmussen ENTERED: 03/11/22 13:23 SP TYPE: Fluid OTHR DR: Dr. Libby Luque MD Tissues: THORACIC FLUID Procedures: Special Stain Group II Surgery Specimen Level IV Cytospin Fluid HEADER OPERATION: Ultrasound-guided thoracentesis right PRE-OP DIAGNOSIS: Right pleural effusion TISSUE SUBMITTED: Thoracentesis fluid for cytology DIAGNOSIS CYTOLOGY Thoracentesis fluid for cytology (cytospin and cell block): Negative for malignant cells. See comment. AM:chinmay 03/12/2022 COMMENT The specimen primarily contains polymorphous lymphocytes and blood. CYTOLOGY STUDY Slides are reviewed. CYTOLOGY GROSS Received is 60 ml of dilma cloudy fluid labeled with the patient's name and and designated per the requisition as thoracentesis. Submitted for cytology preparation including cell block. / chinmay 03/11/2022 TC:5 CPT: 81572, 31438
--- NOTE | 2022-03-11 11:33 | US_ITS ---
PROCEDURE: ULTRASOUND GUIDED THORACENTESIS. CLINICAL INDICATION: Right pleural effusion.. PHYSICIAN: Tyree Hewitt MD MEDICATIONS: 1% lidocaine administered subcutaneously for local anesthesia. ACCESS SITE: Right lower thorax, posterior approach. CATHETER: 5 [place]ian thoracentesis needle/catheter system. FLUID: Approximately 120 mL of right changes pleural fluid removed. COMPLICATIONS: None immediate. The risks, benefits, and alternatives to the procedure and sedation were explained to the patient. The specific risks of bleeding, infection, and pneumothorax requiring chest tube insertion were discussed and accepted. Written informed consent was obtained. PROCEDURE: Ultrasonographic evaluation of the right lower pleural space was carried out. An adequate pocket was identified. The patient was placed in the sitting, upright position. The overlying skin was prepped and draped in sterile fashion. 1% lidocaine was administered subcutaneously for local anesthesia. Under ultrasound guidance, a 5 [place]ian thoracentesis needle/catheter system was advanced into the right posterior lower pleural fluid collection. The inner stylet was removed and there was spontaneous flow of pleural fluid. Approximately 120 mL of red-tinged fluid was manually aspirated. The catheter was removed. Hemostasis was achieved and a sterile dressing was applied. A specimen was collected and sent to the laboratory for analysis, as requested by the referring clinician. The patient tolerated the procedure well, without immediate complications. A chest x-ray was ordered. US/Thoracentesis W US IMPRESSION: Successful ultrasound-guided right thoracentesis. Electronically Signed: Elvis Hewitt MD at 14:40 EDT ,
[2022-03-11 12:16] VITALS: BP 141/64; BP 143/63; BP 146/60; BP 153/71; BP 155/61; BP 161/67; PULSE 66; PULSE 67; PULSE 68; PULSE 70; PULSE 78; RESP 16; RESP 18; TEMP 36.6; O2SAT 97; O2SAT 98; O2SAT 99
[2022-03-11] MEDS: Lidocaine 2% (10 ml mdv) 10 ML Vial INFILT (12:20)
--- NOTE | 2022-03-11 12:43 | RAD_ITS ---
INDICATION: post thoracentesis EXAMINATION/TECHNIQUE: X-RAY - XR Chest 2 Views COMPARISON: Chest x-ray obtained on 12/04/2021.. FINDINGS: LINES/DEVICES: None. Inspiration and expiration views of the chest were obtained after ultrasound-guided thoracentesis. LUNGS: No peribronchial cuffing bilateral hilar prominence is seen, subtle patchy opacification visualized in the right perihilar region demonstrates a prominence in comparison to the prior study. Small residual right pleural fluid is visualized obliterating the right costophrenic angle, the left costophrenic angle is unremarkable. No evidence of pneumothorax is visualized, biapical prominence and biapical pleural reaction is seen. MEDIASTINUM AND CARDIOVASCULAR STRUCTURES: Cardiovascular silhouette is unremarkable. BONES AND SOFT TISSUES: Degenerative bone changes seen. RAD/Chest Insp/Exp 2 View IMPRESSION: No evidence of pneumothorax is visualized. COPD changes, mild residual right pleural fluid seen with blunting of the right costophrenic angle. Electronically Signed: Elvis Hewitt MD at 13:18 EDT ,
[2022-03-11 13:06] LABS: Cytology, Body Fluid / CSF SEE PATHOLOGY REPORT
== END | disposition home or self-care (01) ==
LOC: US 11:31
PROVIDERS: PCP Family Medicine; Referring Provider Thoracic Surgery (Cardiothoracic Vascular Surgery); Visit Provider Thoracic Surgery (Cardiothoracic Vascular Surgery)
DX: J90 Pleural effusion, not elsewhere classified (principal)
CPT/HCPCS: 32555; 71046; 87070; 87075; 87205; 88108; 88305; 88313

== ENCOUNTER 2022-03-18 09:04 | Outpatient (CLI) | payer MEDICARE, OTHER, SELFPAY ==
[2022-03-18 10:42] LABS: Cholesterol 185 mg/dL (200); High Density Lipoprotein 62 mg/dL; Triglycerides 54 mg/dL; Very Low Density Lipoprotein 11 mg/dL (5-40)
== END 2022-03-18 23:59 | disposition home or self-care (01) ==
LOC: MTLAB 09:05
PROVIDERS: PCP Family Medicine; Referring Provider Family Medicine; Visit Provider Family Medicine
DX: E78.5 Hyperlipidemia, unspecified (principal)
CPT/HCPCS: 36415; 80061

== ENCOUNTER → 2022-03-28 | Outpatient (CLI) | payer MEDICARE, OTHER, SELFPAY ==
--- NOTE | 2022-03-28 16:30 | RAD_ITS ---
STUDY: X-RAY CHEST REASON FOR EXAM: Female, 71 years old. Pleural effusion. TECHNIQUE: PA and lateral views of the chest. COMPARISON: March 11, 2022. CT chest December 04, 2021. FINDINGS: Small right pleural effusion slightly increased in size as compared to the prior study. The pleural effusion may be loculated. Fibrosis and/or pleural thickening right lung base unchanged. Left lung well aerated. Calcified left apical lung nodule unchanged. Normal size heart. Normal mediastinum and naye. Normal visualized pulmonary arteries. Normal visualized aortic arch and descending thoracic aorta. Normal visualized thoracic spine. Normal visualized ribs, clavicles, and shoulders. There is no demonstrated abnormality of the visualized soft tissue structures of the upper abdomen. RAD/Chest PA and Lateral IMPRESSION: Slight increase in size of small right pleural effusion. Electronically Signed: Farooq Fernando MD at 3:23 EDT Reading Location ID and State: [id number] / , Service support ,
== END | disposition home or self-care (01) ==
LOC: RAD 16:15
PROVIDERS: PCP Family Medicine; Referring Provider Thoracic Surgery (Cardiothoracic Vascular Surgery); Visit Provider Thoracic Surgery (Cardiothoracic Vascular Surgery)
DX: J90 Pleural effusion, not elsewhere classified (principal)
CPT/HCPCS: 71046

== ENCOUNTER → 2022-05-06 | Outpatient (CLI) | payer MEDICARE, OTHER, SELFPAY ==
--- NOTE | 2022-05-06 10:35 | BI_ITS ---
MAMMOGRAPHY - BILATERAL SCREENING REASON FOR EXAM: Female, 71 years old. Routine annual screening examination. PERTINENT HISTORY: Non-contributory. TECHNIQUE: Digital bilateral breast deanne (3D mammographic acquisition) in the CC and MLO projections. 2-D mediolateral oblique (MLO) and craniocaudad (CC) views of both breasts were obtained. CAD: Full Field Digital Mammography with Computer Added Detection was performed. COMPARISON: Comparison is made with prior study dated 05/03/2021 and 09/10/2016. FINDINGS: Breast Composition: The breasts are extremely dense, which lowers the sensitivity of mammography. There are no dominant masses or suspicious calcifications. No other significant abnormalities are identified. There has been no significant change since the prior study. BI/SCRN MAMM (CAD)W/DEANNE BILAT IMPRESSION: Stable bilateral screening mammogram. Yearly follow-up mammogram recommended. (A) ASSESSMENT CATEGORY: BIRADS Category 1: Negative. A letter regarding these results will be sent to the patient by the facility within 30 days. Approximately 10% of breast cancers are not detected by mammography. A normal mammogram should not delay biopsy of a clinically suspicious abnormality. [id number] Electronically Signed: Colin Jeronimo MD at 11:18 EDT ,
== END | disposition home or self-care (01) ==
LOC: OPBI 10:33
PROVIDERS: PCP Family Medicine; Visit Provider Family Medicine
DX: Z12.31 Encounter for screening mammogram for malignant neoplasm of breast (principal)
CPT/HCPCS: 77063; 77067

== ENCOUNTER → 2022-07-31 | Outpatient (CLI) | payer MEDICARE, OTHER, SELFPAY ==
--- NOTE | 2022-07-31 15:10 | CT_ITS ---
EXAM: CT CHEST WITH INTRAVENOUS CONTRAST CLINICAL INDICATION: PLEURAL EFFUSION, HISTORY OF LUNG COLLAPSE AND THORACENTESIS TECHNIQUE: Helically acquired images were obtained of the chest with intravenous contrast. This CT exam was performed using one or more of the following dose reduction techniques: automated exposure control, adjustment of the mA and/or kV according to patient size, and/or use of iterative reconstruction technique. This report was created using [employer] report generation technology. CONTRAST: IV 75mL [id number] RADIATION DOSE: CTDIvol = 7.56 mGy, DLP = 168.28 mGy-cm COMPARISON: 4.26.22 FINDINGS: LUNGS AND PLEURAL SPACES: There is a stable moderate right pleural effusion. There is stable round atelectasis in the right lower lobe. Stable lingular 5.5mm nodule. Stable 8mm nodule in the left fissure. No pneumothorax. HEART: There are calcifications of the coronary arteries. Heart size is normal. No pericardial effusion. MEDIASTINUM: Unremarkable. No mediastinal or hilar adenopathy. Esophagus is unremarkable. No hiatal hernia. THYROID: Unremarkable. No thyroid lesions. BONES/JOINTS: There are degenerative changes of the shoulders. There are multi-level degenerative changes of the thoracic spine. No suspicious lytic or blastic abnormality. VASCULATURE: There is atherosclerotic calcification of the aortic arch with tortuosity and elongation of the aortic arch and descending thoracic aorta. Thoracic aorta is non-dilated. No thoracic aortic dissection. No obvious central pulmonary embolism although this study was not performed with the pulmonary embolism protocol. OTHER FINDINGS: . CT/Chest WITH Contrast IMPRESSION: Stable right lung findings. Stable left lung nodules. Electronically Signed: Aristeo Mercedes MD at 18:48 EST ,
[2022-07-31 15:46] LABS: CREATININE FINGERSTICK < 0.9 mg/dL (0.55-1.02); EGFR FINGERSTICK > 60.0000 mL/min (>60)
== END | disposition home or self-care (01) ==
LOC: CT 15:08
PROVIDERS: PCP Family Medicine; Referring Provider Thoracic Surgery (Cardiothoracic Vascular Surgery); Visit Provider Thoracic Surgery (Cardiothoracic Vascular Surgery)
DX: J90 Pleural effusion, not elsewhere classified (principal)
CPT/HCPCS: 71260; Q9967

== ENCOUNTER → 2022-12-05 | Outpatient (CLI) | payer MEDICARE, OTHER, SELFPAY ==
--- NOTE | 2022-12-05 15:12 | RAD_ITS ---
INDICATION: Congenital sacral dimple EXAMINATION/TECHNIQUE: X-RAY - XR Sacrum/Coccyx Min 2 Views COMPARISON: None. FINDINGS: SACRUM/COCCYX: No displaced fracture, destructive or sclerotic lesions. Note that overlapping bowel shadows may however obscure fine detail in the frontal view. SACRO-ILIAC JOINTS: Bilateral knee the inferior site joints demonstrate mild subchondral sclerosis and osteophytic spurring. SOFT TISSUES: No soft tissue swelling or gas. RAD/Sacrum-Coccyx min 2 Views IMPRESSION: Mild bilateral sacroiliitis. Electronically Signed: Sumanth Anderson MD, RICARDO at 17:30 EDT ,
== END | disposition home or self-care (01) ==
PROVIDERS: PCP Family Medicine; Referring Provider Family Medicine; Visit Provider Family Medicine
DX: Q82.6 Congenital sacral dimple (principal)
CPT/HCPCS: 72220

== ENCOUNTER → 2022-12-20 | Outpatient (CLI) | payer MEDICARE, OTHER, SELFPAY ==
[2022-12-20 15:26] LABS: Absolute Lymphocyte Count 1.83 X10^3/uL (0.83-4.51); Absolute Neutrophil Count 2.5 X10^3/uL (2.0-7.7); Basophil# 0.05 X10^3/uL; Eosinophils% 3.9 % (0-5); Hematocrit 38.4 % (37-47); Hemoglobin 12.1 g/dL (12.0-15.0); Lymphocyte # 1.83 X10^3/ul (0.83-4.51); Lymphocyte % 35.7 % (19-41); Mean Corp Hgb Conc 31.5 g/dL (32-36); Mean Corpuscular Hgb 30.2 pg (27.0-32.0); Mean Corpuscular Volume 95.8 fL (81-99); Mean Platelet Vol. 10.7 fl (6.2-12.0); Monocyte# 0.57 X10^3/uL; Monocyte% 11.1 % (0-10); NRBC Flagged by Analyzer 0 % (0-5); Neutrophil # 2.46 X10^3/uL (2.7-7.7); Neutrophil % 47.9 % (47-70); Platelet Count 268 K/mm3 (150-450); RBC Distribution Width CV 15.4 % (11.6-14.6); RBC Distribution Width SD 54.8 fl (35.1-43.9); Red Blood Count 4.01 M/mm3 (4.2-5.4); White Blood Count 5.1 K/mm3 (4.4-11.0)
[2022-12-20 15:56] LABS: Thyroid Stim Hormone (TSH) 2.86 uIU/mL (0.358-3.74)
== END | disposition home or self-care (01) ==
LOC: BFHLAB 11:20
PROVIDERS: PCP Family Medicine; Referring Provider Family Medicine; Visit Provider Family Medicine
DX: R53.83 Other fatigue (principal); E03.9 Hypothyroidism, unspecified
CPT/HCPCS: 36415; 84443; 85025

== ENCOUNTER → 2023-03-19 | Outpatient (CLI) | payer MEDICARE, OTHER, SELFPAY ==
--- NOTE | 2023-03-19 14:44 | CT_ITS ---
STUDY: LOW DOSE CT LUNG CANCER SCREENING REASON FOR EXAM: Female, 72 years old. smoker quit 11/2013 RADIATION DOSAGE (If Supplied By Facility): CTDIvol = ( 2.01 ) mGy, DLP = ( 62.93 ) mGycm TECHNIQUE: No contrast was administered. Low dose technique was utilized (average mAS-38 and kVp 120). 1.25 mm axial source images with a slice interval of 1.25-mm were reconstructed in lung windows. 2.5 mm axial source images with a slice interval of 2.5-mm were reconstructed in lung windows. 5.0 mm axial source images with a slice interval of 5.0-mm were reconstructed in soft tissue windows. COMPARISON: Comparison is made with prior examination dated July 31, 2022. NODULES: There is a 3 mm noncalcified nodule in the peripheral lateral aspect of the lingular segment of the left upper lobe. This is unchanged. The previously seen nodular density in the peripheral lateral aspect of the lingular segment of the left upper lobe abutting the left major fissure is unchanged. A 1 mm noncalcified nodule is also seen in the lateral aspect of the right middle. Persistent infiltrate in the posterior medial segment of the right lower lobe. This is suggestive of round atelectasis. There is also evidence of a calcified pleural plaques at that level. Small right pleural effusion. Emphysema: Hyperinflation. Emphysematous changes. Endobronchial lesion: Unremarkable Aorta: Calcified atherosclerotic plaques. CORONARY ARTERIES: Coronary artery calcification is seen. Heart: Unremarkable. Pulmonary artery: Unremarkable. Mediastinal nodes: Small mediastinal lymph nodes. Other chest and abdominal findings: CT/Low Dose CT Lung Screening IMPRESSION: Lung-RADS category 2 - Continue annual screening with LDCT in 12 months. IMPORTANT NOTES FOR USE: ACR Lung-RADS Version 1.1 Assessment Categories Release Date: 2018 Category: Coded 0-4 bases on nodule(s) with highest degree of suspicion. Negative screen is defined as categories 1 and 2; a positive screen is defined as categories 3 and 4. Category 3 and 4A nodules that are unchanged on interval CT should be coded as category 2, and individuals returned to screening in 12 months. Category 4X: Category 3 or 4 nodules with additional imaging findings that increase the suspicion of lung cancer, such as spiculation, GGN that doubles in size in 1 year, enlarged lymph notes, etc. Category Modifiers: S (significant finding unrelated to lung cancer) Electronically Signed: Colin Jeronimo MD at 15:33 EDT ,
== END | disposition home or self-care (01) ==
LOC: CT 14:43
PROVIDERS: PCP Family Medicine; Referring Provider Nurse Practitioner Acute Care; Visit Provider Nurse Practitioner Acute Care
DX: Z12.2 Encounter for screening for malignant neoplasm of respiratory organs (principal); F17.211 Nicotine dependence, cigarettes, in remission; R91.1 Solitary pulmonary nodule
CPT/HCPCS: 71271

== ENCOUNTER → 2023-04-28 | Outpatient (CLI) | payer MEDICARE, OTHER, SELFPAY ==
[2023-04-28 12:21] LABS: Absolute Lymphocyte Count 1.87 X10^3/uL (0.83-4.51); Absolute Neutrophil Count 2.3 X10^3/uL (2.0-7.7); Basophil# 0.06 X10^3/uL; Basophil% 1.2 % (0-1); Eosinophil# 0.44 X10^3/uL; Eosinophils% 8.4 % (0-5); Hemoglobin 12.4 g/dL (12.0-15.0); Lymphocyte # 1.87 X10^3/ul (0.83-4.51); Lymphocyte % 35.9 % (19-41); Mean Corp Hgb Conc 31.8 g/dL (32-36); Mean Corpuscular Hgb 31.3 pg (27.0-32.0); Mean Corpuscular Volume 98.5 fL (81-99); Mean Platelet Vol. 10.6 fl (6.2-12.0); Monocyte# 0.56 X10^3/uL; Monocyte% 10.7 % (0-10); NRBC Flagged by Analyzer 0 % (0-5); Neutrophil # 2.26 X10^3/uL (2.7-7.7); Neutrophil % 43.4 % (47-70); Platelet Count 269 K/mm3 (150-450); RBC Distribution Width CV 14.3 % (11.6-14.6); RBC Distribution Width SD 52.2 fl (35.1-43.9); Red Blood Count 3.96 M/mm3 (4.2-5.4); White Blood Count 5.2 K/mm3 (4.4-11.0)
[2023-04-28 12:43] LABS: Vitamin D,25 Hydroxy 79.2 ng/mL
[2023-04-28 13:01] LABS: ALB/GLOB Ratio 0.8 RATIO (0.9-2.4); AST(SGOT) 15 U/L (15-37); Alanine Aminotransfer ALT/SGPT 23 U/L (13-56); Albumin, Serum 3.3 g/dL (3.2-5.0); Alkaline Phosphatase 64 U/L (45-117); Anion Gap 8 (5-15); BUN 26 mg/dL (7-18); BUN/Creat Ratio 29.4 RATIO (10-20); Calcium,Total 8.9 mg/dL (8.5-10.1); Chloride 104 mmol/L (98-107); Cholesterol 202 mg/dL (200); Creatinine, Serum 0.88 mg/dL (0.55-1.02); EST Glomerular Filtration Rate 67 mL/min (>60); Est Glom Filt Rate - Afr Amer 81 mL/min (>60); Globulin 3.9 g/dL (2.2-4.2); Glucose 87 mg/dL (74-106); High Density Lipoprotein 73 mg/dL; Potassium 4.4 mmol/L (3.5-5.1); Protein, Total 7.2 g/dL (6.4-8.2); Sodium Level 139 mmol/L (136-145); Triglycerides 76 mg/dL; Very Low Density Lipoprotein 15 mg/dL (5-40)
== END | disposition home or self-care (01) ==
LOC: BFHLAB 09:07
PROVIDERS: PCP Family Medicine; Referring Provider Family Medicine; Visit Provider Family Medicine
DX: Z00.00 Encounter for general adult medical examination without abnormal findings (principal); F31.78 Bipolar disorder, in full remission, most recent episode mixed; E03.9 Hypothyroidism, unspecified; M81.0 Age-related osteoporosis without current pathological fracture
CPT/HCPCS: 36415; 80053; 80061; 82306; 84443; 85025

== ENCOUNTER → 2023-08-20 | Outpatient (CLI) | payer MEDICARE, OTHER, SELFPAY ==
--- NOTE | 2023-08-20 15:33 | RAD_ITS ---
STUDY: X-RAY CHEST REASON FOR EXAM: Female, 72 years old. COUGH TECHNIQUE: PA and lateral views of the chest. COMPARISON: 03/28/2022. FINDINGS: Mild right-sided pleural effusion, unchanged. Mild right-sided perihilar densities suggestive of atelectasis, stable. An underlying nodule or mass cannot be excluded. There is no demonstrated pleural abnormality. Normal size heart. Normal mediastinum and naye. Normal visualized pulmonary arteries. There is atherosclerotic calcification of the aortic arch with tortuosity. Normal visualized thoracic spine. Normal visualized ribs, clavicles, and shoulders. There is no demonstrated abnormality of the visualized soft tissue structures of the upper abdomen. RAD/Chest PA and Lateral IMPRESSION: Mild right-sided pleural effusion with right infrahilar density, unchanged and likely atelectasis. Otherwise no acute cardiopulmonary disease. Electronically Signed: Desi Sherman MD at 17:11 EST ,
== END | disposition home or self-care (01) ==
PROVIDERS: PCP Family Medicine; Referring Provider Nurse Practitioner Family; Visit Provider Nurse Practitioner Family
DX: R05.9 Cough, unspecified (principal)
CPT/HCPCS: 71046

== ENCOUNTER → 2023-11-11 | Outpatient (CLI) | payer MEDICARE, OTHER, SELFPAY ==
[2023-11-11 15:24] LABS: Absolute Lymphocyte Count 1.99 X10^3/uL (0.83-4.51); Absolute Neutrophil Count 3.1 X10^3/uL (2.0-7.7); Basophil# 0.04 X10^3/uL; Basophil% 0.7 % (0-1); Eosinophil# 0.17 X10^3/uL; Eosinophils% 2.8 % (0-5); Hematocrit 36.7 % (37-47); Lymphocyte # 1.99 X10^3/ul (0.83-4.51); Lymphocyte % 33.2 % (19-41); Mean Corp Hgb Conc 32.7 g/dL (32-36); Mean Corpuscular Hgb 31.1 pg (27.0-32.0); Mean Corpuscular Volume 95.1 fL (81-99); Mean Platelet Vol. 10.8 fl (6.2-12.0); Monocyte# 0.64 X10^3/uL; Monocyte% 10.7 % (0-10); NRBC Flagged by Analyzer 0 % (0-5); Neutrophil # 3.14 X10^3/uL (2.7-7.7); Neutrophil % 52.4 % (47-70); Platelet Count 296 K/mm3 (150-450); RBC Distribution Width CV 14.8 % (11.6-14.6); RBC Distribution Width SD 51.8 fl (35.1-43.9); Red Blood Count 3.86 M/mm3 (4.2-5.4)
[2023-11-11 15:33] LABS: Internal QC Validated? YES +Cl - CLEAR BKGD; Monotest Negative (Negative); Record Kit Lot#, Mono 13231163
[2023-11-11 16:11] LABS: ALB/GLOB Ratio 0.9 RATIO (0.9-2.4); AST(SGOT) 25 U/L (15-37); Alanine Aminotransfer ALT/SGPT 26 U/L (13-56); Albumin, Serum 3.6 g/dL (3.2-5.0); Alkaline Phosphatase 49 U/L (45-117); Anion Gap 4 (5-15); BUN 25 mg/dL (7-18); BUN/Creat Ratio 23.1 RATIO (10-20); CRP < 2.90 mg/L (0.0-3.0); Calcium,Total 8.9 mg/dL (8.5-10.1); Chloride 103 mmol/L (98-107); Creatinine, Serum 1.08 mg/dL (0.55-1.02); EST Glomerular Filtration Rate 53 mL/min (>60); Est Glom Filt Rate - Afr Amer 64 mL/min (>60); Globulin 3.8 g/dL (2.2-4.2); Glucose 81 mg/dL (74-106); Potassium 4.5 mmol/L (3.5-5.1); Protein, Total 7.4 g/dL (6.4-8.2); Rheumatoid Factor < 10.0 IU/mL (<15); Sodium Level 135 mmol/L (136-145); Thyroid Stim Hormone (TSH) 2.48 uIU/mL (0.358-3.74)
[2023-11-12 12:45] LABS: Erythrocyte Sedimentation Rate 7 mm/hr (0-30)
[2023-11-13 12:09] LABS: ANTINUCLEAR ANTIBODIES DIRECT Negative (Negative)
== END | disposition home or self-care (01) ==
LOC: BFHLAB 11:27
PROVIDERS: PCP Family Medicine; Visit Provider Family Medicine
DX: N39.0 Urinary tract infection, site not specified (principal); E03.9 Hypothyroidism, unspecified; R50.9 Fever, unspecified
CPT/HCPCS: 36415; 80053; 84443; 85025; 85652; 86038; 86140; 86308; 86431; 87077; 87086; 87088; 87186

== ENCOUNTER → 2024-04-02 | Outpatient (CLI) | payer MEDICARE, OTHER, SELFPAY ==
--- NOTE | 2024-04-02 18:43 | CT_ITS ---
EXAM: CT CHEST, LUNG CANCER SCREENING WITHOUT INTRAVENOUS CONTRAST CLINICAL INDICATION: H/O TOBACCO USE TECHNIQUE: Helically acquired images were obtained of the chest without intravenous contrast using low dose (LDCT) lung cancer screening protocol. This CT exam was performed using one or more of the following dose reduction techniques: automated exposure control, adjustment of the mA and/or kV according to patient size, and/or use of iterative reconstruction technique. COMPARISON: 03/19/2023 and 10/16/2015. PET/CT, 12/06/2019. FINDINGS: LUNGS AND PLEURAL SPACES: Unchanged chronic right pleural fluid collection with associated pleural calcifications. Mild apparent scarring and pleural thickening in the left lower lung similar to the prior examination. Unchanged cluster of nodules in the lingula laterally some abutting the pleura and others parenchymal, unchanged since prior examination with largest nodular focus measuring 1 cm. There are multiple 3 to 4 mm pleural-based pulmonary nodules in the left lower lobe which are unchanged since prior examination. There is a 3 mm right middle lobe pulmonary nodule which is unchanged compared to prior examination. There is a posterior right upper lobe pulmonary nodule measuring 2 to 3 mm which is new compared to the prior examination. Rounded atelectasis in the right lower lobe. No pneumothorax. HEART: Coronary artery calcifications. Heart size is normal. No pericardial effusion. MEDIASTINUM: No significant abnormality. No mediastinal or hilar adenopathy. Esophagus is unremarkable. No hiatal hernia. THYROID: No significant abnormality. No thyroid lesions. BONES/JOINTS: Chronic posttraumatic and/or operative changes of right posterior ribs. Degenerative changes in the spine. No suspicious lytic or blastic abnormality. VASCULATURE: Atherosclerosis. LYMPH NODES: No significant abnormality. No enlarged lymph nodes. CT/Low Dose CT Lung Screening IMPRESSION: 1. ACR Lung CT Screening Reporting And Data System (Lung-RADS) score: 2S - Benign Appearance or Behavior. Additional clinically significant or potentially clinically significant findings are described. Recommend continued annual screening with a low-dose CT (LDCT) in 12 months. 2. Unchanged chronic right pleural fluid collection with associated pleural calcifications. 3. Rounded atelectasis in the right lower lobe. Electronically Signed: Eliu Campos DO at 18:10 EDT ,
== END | disposition home or self-care (01) ==
LOC: CT 18:40
PROVIDERS: PCP Family Medicine; Referring Provider Internal Medicine Critical Care Medicine; Visit Provider Internal Medicine Critical Care Medicine
DX: Z12.2 Encounter for screening for malignant neoplasm of respiratory organs (principal); F17.211 Nicotine dependence, cigarettes, in remission
CPT/HCPCS: 71271

== ENCOUNTER → 2024-04-06 | Outpatient (CLI) | payer MEDICARE, OTHER, SELFPAY ==
--- NOTE | 2024-04-06 13:01 | RAD_ITS ---
STUDY: X-RAY - PELVIS AND LEFT HIP REASON FOR EXAM: Female, 73 years old. PAIN, STIFFNESS TECHNIQUE: 3 views of the pelvis and hip. COMPARISON: None. FINDINGS: There is a non-specific bowel gas pattern. Normal visualized soft tissue structures. Normal bilateral iliac wings, sacroiliac joints and visualized sacrum. Normal bilateral superior and inferior pubic rami. Normal pubic symphysis. Normal bilateral ischial tuberosities. Normal visualized femoral head. Normal acetabulum. Normal hip joint. RAD/HIP, UNI W/ Pelvis 2-3 Views IMPRESSION: Normal x-ray examination of the pelvis and hip. Electronically Signed: Vick Mcmahon MD at 22:55 EDT ,
--- NOTE | 2024-04-06 13:05 | RAD_ITS ---
EXAM: XR RIGHT SHOULDER COMPLETE, 2 OR MORE VIEWS CLINICAL INDICATION: PAIN, STIFFNESS TECHNIQUE: Two or more views of the right shoulder. COMPARISON: No relevant prior studies available. FINDINGS: BONES/JOINTS: Small focus of soft tissue calcification anterior to the proximal humeral head may represent synovial chondromatosis are intra-articular loose body. No acute fracture or subluxation. SOFT TISSUES: Normal. No soft tissue swelling or gas. No radiopaque foreign body. LUNGS AND PLEURAL SPACES: Pleural-parenchymal changes of the right hemithorax noted associated with deformity of the right eighth rib. Correlate with recent CT chest. RAD/Shoulder min 2 Views IMPRESSION: No acute bone or joint abnormality of the shoulder. As above. Electronically Signed: Francisco Madden MD at 17:04 EDT ,
== END | disposition home or self-care (01) ==
LOC: MTRAD 13:00
PROVIDERS: PCP Family Medicine; Referring Provider Family Medicine; Visit Provider Family Medicine
DX: M25.511 Pain in right shoulder (principal); M25.552 Pain in left hip
CPT/HCPCS: 73030; 73502

== ENCOUNTER → 2024-07-23 | Outpatient (CLI) | payer MEDICARE, OTHER, SELFPAY | END | disposition home or self-care (01) | LOC: LABSPEC 15:12 | PROVIDERS: PCP Family Medicine; Referring Provider Family Medicine; Visit Provider Family Medicine | DX: R30.0 Dysuria (principal) | CPT/HCPCS: 87086; 87088; 87186 ==

== ENCOUNTER → 2024-10-01 | Outpatient (CLI) | payer MEDICARE, SELFPAY | END | disposition home or self-care (01) | PROVIDERS: PCP Family Medicine; Referring Provider Family Medicine; Visit Provider Family Medicine | DX: R82.90 Unspecified abnormal findings in urine (principal) | CPT/HCPCS: 87086 ==

== ENCOUNTER → 2025-01-19 | Outpatient (CLI) | payer MEDICARE, SELFPAY ==
--- NOTE | 2025-01-19 11:20 | RAD_ITS ---
PROCEDURE: CHEST PA AND LATERAL 01/19/2025 REASON FOR EXAM: SHORTNESS OF BREATH TECHNIQUE: Frontal and lateral views of the chest. COMPARISON: Chest x-ray of 08/20/2023 RAD/Chest PA and Lateral IMPRESSION: Stable areas of bilateral pleural thickening, with mild scarring of the right l ower lung zone, similar to the prior study. No acute pneumonic process is seen. No pneumothorax is evident. The cardiomediastinal silhouette is unchanged, without evidence of cardiomegaly . Mild thoracic spine degenerative changes are noted. No acute osseous change is seen. Reading Location: [address]
== END | disposition home or self-care (01) ==
LOC: RAD 11:19
PROVIDERS: PCP Family Medicine; Referring Provider Nurse Practitioner Acute Care; Visit Provider Nurse Practitioner Acute Care
DX: R06.02 Shortness of breath (principal)
CPT/HCPCS: 71046

== ENCOUNTER → 2025-02-02 | Outpatient (CLI) | payer MEDICARE, SELFPAY ==
--- OUTSIDE RECORDS SUMMARY | 2025-02-02 07:06 | XMS RPT_ITS | CCD ---
Author Organization [facility] Care Team Providers Care Lumber Tripper Name Role Phone Naveen RN, Patricia Hernandez Unavailable Naveen RN, Patricia Hernandez Unavailable Naveen HUGHES, Patricia Hernandez Unavailable Jefferson Bonilla Unavailable Unavailable Madelinis Harumi Y Unavailable Unavailable Alvina PHARMACOGNOSIST, Wiley Villa Unavailable Madhuri White Unavailable Naveen HUGHES, Patricia Hernandez Unavailable [phone] Prosper Hay Unavailable Unavailable Inocente Quijano Unavailable Unavailable Prosper Hay Unavailable Unavailable Inocente Quijano Unavailable Unavailable Unavailable Unavailable Unavailable CHASITYR, SAGAR Referring Unavailable MAYORJOCEIN Referring Unavailable MAYORJOCEIN Referring Unavailable INOCENTE DERAS Attending Unavailable LIBBY LUQUE Primary Care Unavailable SAGAR HENDRICKSON Attending Unavailable SAGAR HENDRICKSON Attending Unavailable CHASITYRSAGAR Referring Unavailable INOCENTE DERAS Referring Unavailable INOCENTE DERAS Referring Unavailable INOCENTE DERAS Referring Unavailable MENG OCAMPO Referring Unavailable MAYOR SAGAR Admitting Unavailable MAYORSAGAR Attending Unavailable Ene DUMONT, Libby Roberto Primary Care Provider Mary Luque MDh Primary Care Provider PROSPER HAY Attending Unavailable LIBBY LUQUE Primary Care Unavailmauricio e MARY LUQUEH SERA Primary Care Unavailmauricio e PROSPER HAY Attending Unavailable LIBBY LUQUE Primary Care Unavailmauricio e Janice PHARMACOGNOSIST, Brooke Attending Unavailable Janice PHARMACOGNOSISTBrooke Referring Unavailable [facility] Unavailable Janice PHARMACOGNOSIST, Brooke Attending Unavailable Miedel, Libby Referring Unavailable Miedel, Libby Primary Care Unavailable Miedel, Libby Referring Unavailable Miedel, Libby Primary Care Unavailable Miedel, Libby Attending Unavailable David Talavera Referring Unavailable Miedel, Libby Primary Care Unavailable David Talavera Attending Unavailable Miedel, Libby Attending Unavailable Miedel, Libby Referring Unavailable Miedel, Libby Primary Care Unavailable Miedel, Libby Attending Unavailable Miedel, Libby Referring Unavailable Miedel, Libby Primary Care Unavailable Miedel, Libby Referring Unavailable Janice PHARMACOGNOSIST, Brooke Attending Unavailable Fledel, Libby Primary Care Unavailable Allergies Allergy Classification Reported Allergen(s) Allergy Type Date of Onset Reaction(s) Facility (20 sources) codeine; Translations: [codeine] drug allergy 7 Unknown, Nausea/vomiting , Nausea And Vomiting [facility] Work Phone: (18 sources) Doxepin; Translations: [doxepin] Drug Allergy 4 Unknown [facility]W-Ewbdqngyog-O [facility] Work Phone: (20 sources) gabapentin; Translations: [GABAPENTIN] Drug Allergy [address] [facility] (19 sources) meloxicam Drug Allergy [address] [facility] Medications Current Medications Medication Drug Class(es) Dates Sig (Normalized) Sig (Original) docosahexaenoic acid 120 mg / eicosapentaenoic acid 180 mg oral capsule (17 sources) fish oil concent rate ([place]-3) 120-180 mg capsule Take by mouth. Active Fish Oil 1000 MG Oral Capsule Quantity: 0 Refills: 0 Ordered: 26-May-2019 DO Active Fish Oil 1000 MG Oral Capsule Refills: 0 Active levothyroxine sodium 0.025 mg oral tablet (20 sources) l-Thyroxine Start: 06-30-2023 take 1 tablet by mouth once daily before mealtime levothyroxine (Synthroid, Levoxyl) 25 mcg tablet Take 1 tablet (25 mcg) by mouth once daily in the morning. Take before meals. Take on an empty stomach. 06/30/2023 Active Start: 06-30-2022 End: 08-26-2022 take 1 tablet by mouth in the morning levothyroxine (Synthroid, Levoxyl) 25 MCG tablet TAKE 1 TABLET BY MOUTH IN THE MORNING on empty stomach 0 06/30/2022 Active Start: 08-15-2016 Levothyroxine Sodium 25 MCG Oral Tablet Quantity: 90 Refills: 0 Ordered: 15-Aug-2016 DO Start : 15-Aug-2016 Active Start: 08-15-2016 Levothyroxine Sodium 25 MCG Oral Tablet Quantity: 90 Refills: 0 Start : 15-Aug-2016 Active magnesium oxide 400 mg oral tablet (3 sources) magnesium oxide (Mag-Ox) 400 mg tablet Take by mouth. Active shzdspbu-ina-axfpl acid-biotin (Hair,Skin and Nails,FA-biotin,) 133.3 mcg- 1,666.7 mcg capsule (3 sources) take 1 capsule by mo uth once pzzpuqiw-jow-gfzcy acid-biotin (Hair,Skin and Nails,FA-biotin,) 133.3 mcg- 1,666.7 mcg capsule Take by mouth. Active qgztlccv-lwj-ngl ic acid-biotin (Hair,Skin and Nails,FA-biotin,) 133.3 mcg- 1,666.7 mcg capsule Take by mouth. 0 Active multivitamin tablet (3 sources) multivitamin tab let Take by mouth. Active multivitamin tab let Take by mouth. 0 Active oxyCODONE hydrochloride 5 mg oral tablet (18 sources) Opioid Agonist Start: 09-09-2022 End: 02-17-2024 take 1 tablet by mouth every six hours as needed for pain oxyCODONE (Roxicodone) 5 mg immediate release tablet TAKE 1 TABLET BY MOUTH EVERY 6 HOURS NEEDED FOR SEVERE PAIN SCALE OF 7-10. 09/09/2022 02/17/2024 Discontinued (Med List Cleanup) Start: 08-23-2022 End: 08-30-2022 take 1 tablet by mouth every six hours as needed for pain oxyCODONE (Roxicodone) 5 MG immediate release tablet Indications: S/P thoracotomy Take 1 tablet (5 mg) by mouth every 6 hours as needed for severe pain (7-10) for up to 7 days. 28 tablet 0 08/23/2022 08/30/2022 Active Start: 08-23-2022 End: 08-26-2022 take 1 tablet by mouth every four hours as needed for pain oxyCODONE (Roxicodone) immediate release tablet 5 mg triamcinolone acetonide 1 mg/ml topical cream (20 sources) Corticosteroid Start: 04-28-2023 triamcinolone (Kenalog) 0.1 % cream Apply to any areas of rash or itching that you can see or feel on the body 1x a day as needed 04/28/2023 Active Start: 10-02-2021 Triamcinolone Acetonide 0.1 % External Cream Apply to any areas of rash or itching that you can see or feel on the body 1x a day as needed Quantity: 80 Refills: 0 Ordered: 02-Oct-2021 DO Start : 02-Oct-2021 Active Start: 10-02-2021 triamcinolone (Kenalog) 0.1 % cream Apply to any areas of rash or itching that you can see or feel on the body 1x a day as needed 0 10/02/2021 Active Completed/Discontinued Medications Medication Drug Class(es) Dates Sig (Normalized) Sig (Original) acetaminophen 500 mg oral tablet (4 sources) Start: 08-23-2022 End: 08-26-2022 acetaminophen (Tylenol) tablet 1,000 mg Ascorbic Acid (2 sources) Vitamin C Vitamin C TABS Refills: 0 Active ascorbic acid 60 mg / beta carotene 5000 unt / copper sulfate 40 mg / dl-alpha tocopheryl acetate 30 unt / sodium selenite 0.04 mg / zinc oxide 40 mg oral tablet (2 sources) Vitamin C Vitamin B Comple x Oral Tablet Refills: 0 Active aspirin 81 mg delayed release oral tablet (18 sources) Platelet Aggregation Inhibitor, Nonsteroidal Anti-inflammatory Drug Start: 08-23-2022 End: 08-26-2022 take 81 mg by mouth once daily 81 mg, Oral, Daily, First dose on Fri08/23/22 at 1100 Do not crush, chew, or split. B FRBIEQN-C-PEYZO ACID (3 sources) Start: 06-12-2017 take 1 tablet by mouth once daily STRESS 500 B-COMPLEX TABS One tablet by mouth daily B UWQMSJW-C-BLAIE ACID [id number] Wiley Tinsley NP BIOFLAVONOID PRODUCTS TABS (3 sources) Start: 06-12-2017 take 1 tablet by mouth once daily YANETH-C TABS One tablet by mouth daily BIOFLAVONOID PRODUCTS TABS [id number] Wiley Tinsley NP brompheniramine maleate 0.4 mg/ml / dextromethorphan hydrobromide 2 mg/ml / pseudoephedrine hydrochloride 6 mg/ml oral solution (2 sources) alpha-Adrenergic Agonist, Uncompetitive B-qjnaqm-H-asparta te Receptor Antagonist, Sigma-1 Agonist Start: 06-03-2022 take 10 mL by mouth every four to six hours Pseudoeph-Bromphen -DM 30-2-10 MG/5ML Oral Syrup Take 10 mL (Oral) every 4-6 hours for 5 days Quantity: 250 Refills: 0 Ordered: 03-Jun-2022 DO Start : 03-Jun-2022 Active calcium chloride 0.0014 meq/ml / potassium chloride 0.004 meq/ml / sodium chloride 0.103 meq/ml / sodium lactate 0.028 meq/ml injectable solution (2 sources) Start: 08-23-2022 End: 08-23-2022 lactated Ringer's (LR) infusion [id number] MIN D (3 sources) Start: 06-12-2017 take 1 tablet by mouth once daily CALCIUM-MAGNESIUM- VITAMIN D 200-100-33.3 MG-MG-UNIT CAPS One tablet by mouth daily CALCIUM-MAGNESIUM- VITAMIN D [id number] Wiley Tinsley NP chlorpheniramine / dextromethorphan (3 sources) Histamine-1 Receptor Antagonist, Uncompetitive P-hjjfkt-V-asparta te Receptor Antagonist, Sigma-1 Agonist Start: 06-12-2017 take 1 tablet by mouth once daily EQL LECITHIN 1200 MG CAPS One tablet by mouth daily LECITHIN [id number] Wiley Tinsley PHARMACOGNOSIST 0.4 ml enoxaparin sodium 100 mg/ml prefilled syringe (2 sources) Low Molecular Weight Heparin Start: 08-23-2022 End: 08-26-2022 inject 40 mg by subcutaneous injection once daily 40 mg, SubCUTAneous, Daily, First dose on Fri08/23/22 at 1100 Indication of Use: Prophylaxis-DVT/PE famotidine 20 mg oral tablet (2 sources) Histamine-2 Receptor Antagonist Start: 08-23-2022 End: 08-23-2022 famotidine (Pepcid) tablet 20 mg FERROUS GLUCONATE (2 sources) Start: 06-12-2017 take 1 tablet by mouth once daily FERROUS GLUCONATE 225 (27 Fe) MG TABS One tablet by mouth daily FERROUS GLUCONATE [id number] Wiley Tinsley PHARMACOGNOSIST ferrous sulfate 325 mg oral tablet (20 sources) Start: 06-12-2017 take 1 tablet by mouth once daily FERROUS SULFATE 325 (65 Fe) MG TABS One tablet by mouth daily FERROUS SULFATE [id number] Wiley Tinsley PHARMACOGNOSIST ferrous sulfate, 325 mg ferrous sulfate, tablet Take by mouth. Active Iron 325 (65 Fe) MG Oral Tablet Quantity: 0 Refills: 0 Ordered: 26-May-2019 DO Active furosemide 20 mg oral tablet (16 sources) Loop Diuretic Start: 08-30-2019 Furosemide 20 MG Oral Tablet Quantity: 30 Refills: 0 Start : 30-Aug-2019 Active Start: 04-16-2017 take 1 tablet by karel th once daily FUROSEMIDE 20 MG TABS One tablet by mouth daily FUROSEMIDE [id number] Patricia Hodge RN Start: 04-16-2017 take 1 tablet by karel th once daily FUROSEMIDE 40 MG TABS One tablet by mouth daily FUROSEMIDE [id number] Atif Avalos MD Hair Skin Nails CAPS (2 sources) Hair Skin Nails CAPS Refills: 0 Active Hair Skin Nails CAPS (12 sources) Hair Skin Nails CAPS Quantity: 0 Refills: 0 Ordered: 26-May-2019 DO Active 1 ml LORazepam 2 mg/ml injection (2 sources) Benzodiazepine Start: 08-23-2022 End: 08-23-2022 LORazepam (Ativan) injection 0.5 mg Magnesium (14 sources) Magnesium TABS Q uantity: 0 Refills: 0 Ordered: 26-May-2019 DO Active Magnesium TABS R efills: 0 Active JDQTJAY-EWLRA-NUEC-PASSF-LBA LM (3 sources) Start: 06-12-2017 take 2 tablets by mouth once daily SLEEP CAPS Two tablets by mouth daily YAHCGLG-DOORG-WSWT-PASSF-LBALM [id number] Wiley Tinsley PHARMACOGNOSIST melatonin 5 mg oral tablet (16 sources) Start: 08-24-2022 End: 08-26-2022 melatonin tablet 10 mg Start: 08-23-2022 End: 08-24-2022 melatonin tablet 5 mg Start: 04-16-2017 End: 06-12-2017 take 2 tablets by mouth at bedtime as needed MELATONIN 3 MG TABS Two tablet by mouth at bedtime. As needed MELATONIN [id number] Wiley Tinsley PHARMACOGNOSIST 1 ml morphine sulfate 4 mg/ml injection (2 sources) Opioid Agonist Start: 08-23-2022 End: 08-26-2022 take 2 mg intravenously every four hours as needed for pain morphine sulfate (PF) injection 2 mg Multi-Vitamins TABS (2 sources) Multi-Vitamins TABS Refills: 0 Active Multi-Vitamins TABS (12 sources) Multi-Vitamins TABS Quantity: 0 Refills: 0 Ordered: 26-May-2019 DO Active MULTIPLE VITAMINS-MINERALS (3 sources) Start: 06-12-2017 take 1 tablet by mouth once daily WOMENS MULTIVITAMIN TABS One tablet by mouth daily MULTIPLE VITAMINS-MINERALS [id number] Wiley Tinsley NP ondansetron ODT (Zofran-ODT) disintegrating tablet 4 mg (2 sources) Start: 08-23-2022 End: 08-26-2022 take 1 tablet by mouth every eight hours as needed for nausea and vomiting ondansetron ODT (Zofran-ODT) disintegrating tablet 4 mg prednisoLONE acetate 10 mg/ml ophthalmic suspension (5 sources) Corticosteroid Start: 10-18-2021 End: 08-23-2022 prednisoLONE acetate (Pred-Forte) 1 % ophthalmic suspension put 1 (ONE) drop into left eye THREE TIMES DAILY FOR 7 DAYS then stop 0 10/18/2021 08/23/2022 Discontinued (Therapy completed) predniSONE 5 mg oral tablet (17 sources) Start: 04-16-2017 End: 04-17-2017 take 1 tablet by mouth once daily PREDNISONE 5 MG TABS One tablet by mouth daily PREDNISONE [id number] Atif Avalos MD 5 ml sodium chloride 9 mg/ml injection (6 sources) Start: 08-23-2022 End: 08-26-2022 take 1 dose intravenously twice daily 5-40 mL, IntraVENous, Every 12 hours scheduled (2 times per day), First dose on Fri08/23/22 at 1100 or Line Patency: Peripheral IV = 5 mL; Midline or Central Line = 10 mL/lumen. &nb sp;If following IV push medication, administer flush at same rate as the IV push. Flush volume is determined by type of infusion therapy being given. For non-viscous solutions use: Peripher al IV = 5 mL Midline or Central Line = 10 mL/lumen &nbs p;For viscous solutions (i.e. blood components, parenteral nutrition, contrast media, or after obtaining blood sample) use: Peripher al IV = 10 mL Midline or Central Line = 20 mL/lumen Start: 08-23-2022 End: 08-26-2022 5-250 mL/hr, IntraVENous, MI N, if patient receiving piggyback infusions and maintenance fluids are not ordered OR KVO fluids to protect IV site / prevent frequent line interruptions/ long duration, Starting on Fri08/23/22 at 1048 For piggyback infusion, administer at same rate as piggyback for a total of 25 mL. Enter 25 mL into dose field and piggyback rate into rate field of order. If piggyback is infusing at a rate less than 100 mL/hr, enter 25 mL into dose field and 100 mL/hr into rate field of order. For KVO fluids, enter rate of 20 mL/hr or less into rate field of order. Start: 08-23-2022 End: 08-26-2022 take 5-40 mL intravenously once as needed 5-40 mL, IntraVENous, PRN, line care, After every IV line use, Starting on Fri08/23/22 at 1048 or Line Patency: Peripheral IV = 5 mL; Midline or Central Line = 10 mL/lumen. If following IV push medication, administer flush at same rate as the IV push. Flush volume is determined by type of infusion therapy being given. For non-viscous solutions use: Peripheral IV = 5 mL Midline or Central Line = 10 mL/lumen For viscous solutions (i.e. blood components, parenteral nutrition, contrast media, or after obtaining blood sample) use: Peripheral IV = 10 mL Midline or Central Line = 20 mL/lumen turmeric extract (3 sources) Start: 06-12-2017 take 1 tablet by mouth three times daily TURMERIC CURCUMIN 500 MG CAPS One tablet by mouth three times daily TURMERIC [id number] Wiley Tinsley PHARMACOGNOSIST divalproex sodium 500 mg delayed release oral tablet (20 sources) Mood Stabilizer, Anti-epilepti c Agent Start: 11-28-2023 End: 02-20-2025 take 1 tablet by mouth once daily at bedtime divalproex (Depakote) 500 mg EC tablet Indications: Bipolar disorder, in full remission, most recent episode mixed (Multi) Take 1 tablet (500 mg) by mouth once daily at bedtime. 90 tablet 1 02/24/2024 08/24/2024 Discontinued (Reorder) Start: 02-22-2023 take 1 tablet by karel th once daily at bedtime divalproex (Depakote) 500 mg EC tablet Take 1 tablet (500 mg) by mouth once daily at bedtime. 0 02/22/2023 Active Start: 11-02-2019 End: 08-26-2022 take 1 tablet by mouth once daily divalproex (Depakote) 500 MG EC tablet Take 1 tablet by mouth Nightly. 0 01/30/2022 Active Start: 04-16-2017 take 1 tablet by karel th once daily at bedtime DEPAKOTE ER 250 MG [id number] One tablet by mouth daily @ bedtime DIVALPROEX SODIUM [id number] Patricia Hodge RN Start: 04-16-2017 take 1 tablet by karel th once daily at bedtime DEPAKOTE ER 250 MG [id number] One tablet by mouth daily @ bedtime DIVALPROEX SODIUM [id number] Patricia Hodge RN Vitamin B Complex Oral Table t (12 sources) Vitamin B Comple x Oral Tablet Quantity: 0 Refills: 0 Ordered: 26-May-2019 DO Active Vitamin B6 TABS (2 sources) Vitamin B6 TABS Refills: 0 Active Vitamin B6 TABS (12 sources) Vitamin B6 TABS Quantity: 0 Refills: 0 Ordered: 26-May-2019 DO Active Vitamin C TABS (12 sources) Vitamin C TABS Q uantity: 0 Refills: 0 Ordered: 26-May-2019 DO Active Zinc (12 sources) Zinc TABS Quanti ty: 0 Refills: 0 Ordered: 26-May-2019 DO Active Zinc TABS (2 sources) Zinc TABS Refill s: 0 Active Problems Active Problems Problem Classification Problem Date Documented Da te Episodic/Chronic Heart valve disorders (8 sources) Nonrheumatic mitral valve disorder, unspecified; Translations: [Nonrheumatic mitral valve disorder, unspecified] Onset: 04-17-2017 04-17-2017 Chronic Mood disorders (20 sources) Bipolar disorder; Translations: [Bipolar disorder in remission] Onset: 08-14-2023 Resolved: 11-03-2020 2023 Chronic Other lower respiratory disease (1 source) Shortness of breath; Translations: [Shortness of breath] Onset: 01-26-2025 Episodic Other nutritional; endocrine; and metabolic disorders (14 sources) H/O: hypothyroidism; Translations: [Personal history of other endocrine, metabolic, and immunity disorders] Episodic Residual codes; unclassified (1 source) Obstructive sleep apnea (adult) (pediatric); Translations: [Obstructive sleep apnea (adult) (pediatric)] Onset: 09-13-2024 Chronic Substance-related disorders (1 source) Nicotine dependence, cigarettes, in remission; Translations: [Nicotine dependence, cigarettes, in remission] Onset: 09-13-2024 Chronic Thyroid disorders (9 sources) Hypothyroidism; Translations: [Hypothyroidism, unspecified] Onset: 04-16-2017 04-16-2017 Chronic Unclassified (2 sources) Results; Translations: [Results] Onset: 07-25-2022 Past or Other Problems Problem Classification Problem Date Documented Date Episodic/Chronic Genitourinary symptoms and ill-defined conditions (2 sources) Unspecified abnormal findings in urine; Translations: [Dysuria] Onset: 08-26-2024 Episodic Other nervous system disorders (17 sources) Paresthesia of lower extremity; Translations: [Disturbance of skin sensation] Onset: 08-14-2023 08-14-2023 Episodic Other non-traumatic joint disorders (1 source) Pain in right shoulder; Translations: [Pain in right shoulder] Onset: 04-16-2024 Episodic Other screening for suspected conditions (not mental disorders or infectious disease) (1 source) Encounter for screening for malignant neoplasm of respiratory organs; Translations: [Encounter for screening for malignant neoplasm of respiratory organs] Onset: 04-16-2024 Episodic Pleurisy; pneumothorax; pulmonary collapse (20 sources) Pleural effusion, not elsewhere classified; Translations: [Pleural effusion] Onset: 08-23-2022 Episodic Residual codes; unclassified (1 source) Edema; Translations: [Edema, unspecified] Onset: 04-16-2017 04-16-2017 Episodic Residual codes; unclassified (17 sources) Sleep disorder; Translations: [Sleep disturbance, unspecified] Onset: 08-14-2023 08-14-2023 Episodic Residual codes; unclassified (17 sources) Abnormal sensation; Translations: [Disturbance of skin sensation] Onset: 08-14-2023 08-14-2023 Episodic Residual codes; unclassified (2 sources) Other specified postprocedural states; Translations: [Other specified postprocedural states] Onset: 08-23-2022 Episodic Residual codes; unclassified (2 sources) History of thoracic surgery; Translations: [Other specified postprocedural states] Episodic Screening and history of mental health and substance abuse codes (20 sources) H/O: manic depressive disorder; Translations: [Personal history of affective disorders] Onset: 08-14-2023 08-14-2023 Episodic Unclassified (16 sources) Body mass index (BMI) 21.0-21.9, adult; Translations: [Edema] Onset: 04-16-2017 04-17-2017 Episodic Unclassified (2 sources) Onset: 02-17-2024 Resolved: 08-24-2024 02-17-2024 NEGATED: Highlighted row has not occurred!Residual codes; unclassified (6 sources) Disease Episodic Results Test Name Value Interpretation Reference Range Facility Pulmonary Visit Reporton Pulmonary Visit Report [facility] Pulmonary Medicine [place] [address] [place] [address] OFFICE VISIT Date of Service: 01/25/25 MR#: [id number] Acct: [id number] Name: RICARDA OLIVA Rep #: [id number] : 1950 Provider: TENNILLE Camacho Age/Sex: 74/F Location[place] [facility] [email or web address] Status: Signed Assessment and Plan Assessment and Plan (1) Shortness of breath: Status: Acute Plan: New. Of unclear etiology. Chest x-ray ruled out return of pleural effusion. Sending the patient for a pulmonary function test and a 6-minute walk test for further evaluation. Return to the office after test results are available for review. We will then determine if the patient requires additional testing, such as CT of the chest or echocardiogram. (2) FCO (obstructive sleep apnea): Status: Chronic Plan: Stable, she is using and benefiting from Pap therapy. No indication for titration study at this time. Contact the office for any new or worsening symptoms in the meantime. Follow-up in April. (3) Loculated pleural effusion: Status: Acute Plan: Complicates exam, plan, care and prognosis. Recent chest x-ray did not indicate any progression. There was no fluid appropriate for thoracentesis. Orders: Orders PFT Complete - DLCO, Spirometry b/a bronchodilators, lung volumes 02/02/25 R06.02 - Shortness of breath Simple Pulmonary Exercise Test 02/03/25 R06.02 - Shortness of breath Plan Details Additional Comments: This note was generated with [employer] dictation software. It may contain incorrect words, spelling, and punctuation that were not noted in checking the note before signing. Follow Up: 2 Weeks HPI Acute SOB Chief Complaint: shortness of breath HPI Comments Details: This patient presents to the office today for shortness of breath with a history of loculated pleural effusion. She is ambulatory, currently on room air and accompanied today by her . She has not recently been seen in the ED or urgent care for any respiratory illness. She has not required any antibiotics or prednisone for any breathing problems. She is not currently on any inhalers. If you recall, she quit smoking in November 2013. She does have greater than 21-yhuf-fdpp smoking history. She is having shortness of breath on exertion. She denies any wheezing, chest tightness, chest pain or palpitations. She denies any cough, sputum production or hemoptysis. She has not had any fever, chills or body aches. She wakes up feeling rested and refreshed with use of her Pap device. She reports some difficulty with dry mouth. She is not having excessive nocturia. She is not requiring naps. She also denies morning headaches. Compliance report for the past 30 days shows 100% compliance with an average use of 8 hours and 33 minutes per night. Current setting is 12/8 cm of water with a residual AHI of 10.2 events per hour, of note central events are only 0.5 events per hour.. Leaks do not appear to be problematic. 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 [employer] Required: No DME Vendor: Abraham Accompanied by: Self Allergies codeine Adverse Reaction (Intermediate, Verified 01/25/25 10:48) Vomiting Medications ???Medication ???Instructions ???Recorded ???Confirmed ???Type levothyroxine 25 mcg tablet 25 mcg PO DAILY 02/11/14 01/25/25 History divalproex 500 mg tablet,delayed 500 mg PO QHS 06/17/18 01/25/25 Hi story release (Depakote) Have you fallen in the past year?: Yes [facility] Medical History Hx of psychiatric hospitalization History of mental disorder Restless leg syndrome Lung nodule FCO (obstructive sleep apnea) Bipolar disorder Chronic back pain Hypothyroidism Nonrheumatic mitral (valve) prolapse Surgical History History of cataract surgery History of hammer toe correction History of thoracentesis Family History Mother Diabetes Cancer Grandmother Diabetes Hypertension Social History Smoking Status: Former smoker how long ago did patient quit smokin second hand exposure: No alcohol intake: never substance use type: does not use (more content not included)... Normal [facility] Chest PA and Lateralon 01-19 Chest PA and Lateral [facility] Imaging Services [address] [place], [place] [address] Chest PA and Lateral MR#: [id number] Acct: [id number] Name: RICARDA OLIVA Rep #: [id number] : 1950 F 74 From: Sam Hyde PCP: Dr. Libby Luque MD Status: REG CLI Study: Chest PA and Lateral Date of Exam: 01/19/25 Exam# [id number] Ordering Dr: Brooke Camacho NP PHARMACOGNOSIST-C PROCEDURE: CHEST PA AND LATERAL 01/19/2025 REASON FOR EXAM: SHORTNESS OF BREATH TECHNIQUE: Frontal and lateral views of the chest. COMPARISON: Chest x-ray of 08/20/2023 RAD/Chest PA and Lateral IMPRESSION: Stable areas of bilateral pleural thickening, with mild scarring of the right lower lung zone, similar to the prior study. No acute pneumonic process is seen. No pneumothorax is evident. The cardiomediastinal silhouette is unchanged, without evidence of cardiomegaly. Mild thoracic spine degenerative changes are noted. No acute osseous change is seen. Reading Location: [address] CC: PHARMACOGNOSIST-C Brooke Camacho; Dr. Libby Luque MD Hospitality Housekeeper: Signed Normal [facility] Urine Cultureon 10-02-2024 [facility] Culture exhibits no growth. Normal [facility] Comment on above: Performed By: #### M 100.2200 #### [facility] Laboratory [address] [place], [address] CBC (INCLUDES DIFF/PLT)on Basophils (Bld) [#/Vol] 0.062 10*3/uL Normal 0-200 [facility] Comment on above: Performed By: #### 9 6937, 1325 #### [facility] of [address], [address] [place] [address] Lab Technologist: Ken Barcenas MD Basophils/100 WBC (Bld) 1.1 % Normal [facility] Comment on above: Performed By: #### 9 928, 6399 #### [facility] of [address], [address] [place] [address] Lab Technologist: Ken Barcenas MD Eosinophils (Bld) [#/Vol] 0.202 10*3/uL Normal 15-500 [facility] Comment on above: Performed By: #### 9 2664, 6399 #### [facility] of [place] [address] Lab Technologist: Ken Barcenas MD Eosinophils/100 WBC (Bld) 3.6 % Normal [facility] Comment on above: Performed By: #### 9 2664, 6399 #### [facility] of [place] [address] Lab Technologist: Ken Barcenas MD Erythrocyte distribution width (RBC) [Ratio] 13.1 % Normal 11.0-15.0 [facility] Comment on above: Performed By: #### 9 824, 6399 #### [facility] of [place] [address] Lab Technologist: Ken Barcenas MD Hematocrit (Bld) [Volume fraction] 36.6 % Normal 35.0-45.0 [facility] Comment on above: Performed By: #### 9 600, 6399 #### [facility] of [place] [address] Lab Technologist: Ken Barcenas MD Hemoglobin (Bld) [Mass/Vol] 12.3 g/dL Normal 11.7-15.5 [facility] Comment on above: Performed By: #### 9 2664, 6399 #### [facility] of [address], [address] [place] [address] Lab Technologist: Ken Barcenas MD Lymphocytes (Bld) [#/Vol] 2.106 10*3/uL Normal 850-3900 [facility] Comment on above: Performed By: #### 9 184, 6399 #### [facility] of [address], [address] [place] [address] Lab Technologist: Ken Barcenas MD Lymphocytes/100 WBC (Bld) 37.6 % Normal [facility] Comment on above: Performed By: #### 9 2664, 6399 #### [facility] [place] [address] Lab Technologist: Ken Barcenas MD MCH (RBC) [Entitic mass] 33.0 pg Normal 27.0-33.0 [facility] Comment on above: Performed By: #### 9 2664, 6399 #### [facility] of [place] [address] Lab Technologist: Ken Barcenas MD MCHC (RBC) [Mass/Vol] 33.6 g/dL Normal 32.0-36.[address] [facility] Comment on above: Result Comment: For adults, a slight decrease in the calculated MCHC value (in the range of 30 to 32 g/dL) is most likely not clinically significant; however, it should be interpreted with caution in correlation with other red cell parameters and the patient's clinical condition. Performed By: #### 9 458, 6399 #### [facility] of [address], [address] [place] [address] Lab Technologist: Ken Barcenas MD MCV (RBC) [Entitic vol] 98.1 fL Normal 80.0-100.0 [facility] Comment on above: Performed By: #### 9 959, 6399 #### [facility] of [address], [address] [place] [address] Lab Technologist: Ken Barcenas MD Monocytes (Bld) [#/Vol] 0.549 10*3/uL Normal 200-950 [facility] Comment on above: Performed By: #### 9 2664, 6399 #### [facility] of [address], [address] [place] [address] Lab Technologist: Ken Barcenas MD Monocytes/100 WBC (Bld) 9.8 % Normal [facility] Comment on above: Performed By: #### 9 2664, 6399 #### [facility] of [place] [address] Lab Technologist: Ken Barcenas MD Neutrophils (Bld) [#/Vol] 2.682 10*3/uL Normal 0475-5757 [facility] Comment on above: Performed By: #### 9 2664, 6399 #### [facility] of [place] [address] Lab Technologist: Ken Barcenas MD Neutrophils/100 WBC (Bld) 47.9 % Normal [facility] Comment on above: Performed By: #### 9 2664, 6399 #### [facility] of [place] [address] Lab Technologist: Ken Barcenas MD Platelet mean volume (Bld) [Entitic vol] 11.1 fL Normal 7.5-12.5 [facility] Comment on above: Performed By: #### 9 2664, 6399 #### [facility] of [place] [address] Lab Technologist: Ken Barcenas MD Platelets (Bld) [#/Vol] 270 10*3/uL Normal 140-400 [facility] Comment on above: Performed By: #### 9 214, 6399 #### [facility] of [place] [address] Lab Technologist: Ken Barcenas MD RBC (Bld) [#/Vol] 3.73 10*6/uL Low 3.80-5.10 [facility] Comment on above: Performed By: #### 9 807, 6399 #### [facility] of [place] [address] Lab Technologist: Ken Barcenas MD WBC (Bld) [#/Vol] 5.6 10*3/uL Normal 3.8-10.8 [facility] Comment on above: Performed By: #### 9 6195, 6399 #### [facility] of [address], [address] [place] [address] Lab Technologist: Ken Barcenas MD COMPREHENSIVE METABOLIC PANE L W/ANION GAPon 09-16-2024 Albumin [Mass/Vol] 4.0 g/dL Normal 3.6-5.1 [facility] Comment on above: Performed By: #### 9 6765, 6399 #### [facility] of [address], [address] [place] [address] Lab Technologist: Ken Barcenas MD ALP [Catalytic activity/Vol] 48 U/L Normal 37-153 [facility] Comment on above: Performed By: #### 9 2664, 6399 #### [facility] of [address], [address] [place] [address] Lab Technologist: Ken Barcenas MD ALT [Catalytic activity/Vol] 22 U/L Normal 6-29 [facility] Comment on above: Performed By: #### 9 2664, 6399 #### [facility] of [address], [address] [place] [address] Lab Technologist: Ken Barcenas MD AST [Catalytic activity/Vol] 22 U/L Normal 10-35 [facility] Comment on above: Performed By: #### 9 969, 6399 #### [facility] of [address], [address] [place] [address] Lab Technologist: Ken Barcenas MD Bilirubin [Mass/Vol] 0.5 mg/dL Normal 0.2-1.2 [facility] Comment on above: Performed By: #### 9 410, 6399 #### [facility] of [address], [address] [place] [address] Lab Technologist: Ken Barcenas MD Calcium [Mass/Vol] 9.1 mg/dL Normal 8.6-10.4 [facility] Comment on above: Performed By: #### 9 607, 6399 #### [facility] of [address], [address] [place] [address] Lab Technologist: Ken Barcenas MD Chloride [Moles/Vol] 103 mmol/L Normal 98-110 [facility] Comment on above: Performed By: #### 9 076, 6399 #### [facility] of [address], [address] [place] [address] Lab Technologist: Ken Barcenas MD CO2 [Moles/Vol] 29 mmol/L Normal 20-32 [facility] Comment on above: Performed By: #### 9 313, 6399 #### [facility] of [address], [address] [place] [address] Lab Technologist: Ken Barcenas MD Creatinine [Mass/Vol] 0.91 mg/dL Normal 0.60-1.00 [facility] Comment on above: Performed By: #### 9 703, 6399 #### [facility] of [address], [address] [place] [address] Lab Technologist: Ken Barcenas MD ELECTROLYTE BALANCE 7 mmol/L (calc) Normal 7-17 [facility] Comment on above: Performed By: #### 9 505, 6399 #### [facility] of [address], [address] [place] [address] Lab Technologist: Ken Barcenas MD GFR/1.73 sq M.predicted among non-blacks MDRD (S/P/Bld) [Vol rate/Area] 67 mL/min/{1.73_m2} Normal > OR = 60 [facility] Comment on above: Performed By: #### 9 848, 6399 #### [facility] of [address], [address] [place] [address] Lab Technologist: Kne Barcenas MD Glucose [Mass/Vol] 86 mg/dL Normal 65-99 [facility] Comment on above: Result Comment: Fasting reference interval Performed By: #### 9 308, 6399 #### [facility] of [address], [address] [place] [address] Lab Technologist: Ken Barcenas MD Potassium [Moles/Vol] 4.8 mmol/L Normal 3.5-5.[address] [facility] Comment on above: Performed By: #### 9 2665, 6399 #### [facility] of [address], [address] [place] [address] Lab Technologist: Ken Barcenas MD Protein [Mass/Vol] 6.5 g/dL Normal 6.1-8.1 [facility] Comment on above: Performed By: #### 9 2665, 6399 #### [facility] of [address], [address] [place] [address] Lab Technologist: Ken Barcenas MD Sodium [Moles/Vol] 139 mmol/L Normal 135-146 [facility] Comment on above: Performed By: #### 9 2665, 6399 #### [facility] of [address], [address] [place] [address] Lab Technologist: Ken Barcenas MD Urea nitrogen [Mass/Vol] 20 mg/dL Normal 7-25 [facility] Comment on above: Performed By: #### 9 2665, 6399 #### [facility] of [address], [address] [place] [address] Lab Technologist: Ken Barcenas MD VALPROIC ACIDon 09-16-2024 VALPROIC ACID 65.3 mg/L Normal 50.0-100.0 [facility] Comment on above: Performed By: #### 9 2665, 6399 #### [facility] of [address], [address] [place] [address] Lab Technologist: Ken Barcenas MD Pulmonary Visit Reporton Pulmonary Visit Report [facility] Pulmonary Medicine of [address] [place], [place] [address] OFFICE VISIT Date of Service: 09/02/24 MR#: [id number] Acct: [id number] Name: RICARDA OLIVA Rep #: [id number] : 1950 Provider: TENNILLE Camacho Age/Sex: 74/F Location: [facility] [place] Status: Signed Assessment and Plan Assessment and Plan (1) FCO (obstructive sleep apnea): Status: Chronic Plan: Stable, she is using and benefiting from Pap therapy. No indication for titration study at this time. Contact the office for any new or worsening symptoms in the meantime. Follow-up in April. (2) Nicotine dependence, cigarettes, in remission: Status: Chronic Comment: Greater than 02-jjze-lehk smoking history quit in November 2013 Plan: Remains appropriate for repeat LDCT which will be due in March. Ordered accordingly. Follow-up in April to discuss test results. Orders: Orders Low Dose CT Lung Screening 03/11/25 F17.200 - Nicotine dependence, unspecified, uncomplicated, F17.211 - Nicotine dependence, cigarettes, in remission HPI 1 Y FU Chief Complaint: Routine follow-up HPI Comments Details: This patient presents to the office today for follow-up of her obstructive sleep apnea complicated by status post loculated pleural effusion. She is ambulatory, currently on room air and accompanied today by her . She has not recently been seen in the ED or urgent care for any respiratory illness. She has not required any antibiotics or prednisone for any breathing problems. She is not currently on any inhalers. If you recall, she quit smoking in November 2013. She does have greater than 48-chfm-lagf smoking history. She denies any difficulty with shortness of breath. She denies any wheezing, chest tightness, chest pain or palpitations. She denies any cough, sputum production or hemoptysis. She has not had any fever, chills or body aches. She wakes up feeling rested and refreshed with use of her Pap device. She reports some difficulty with dry mouth. She is not having excessive nocturia. She is not requiring naps. She also denies morning headaches. Compliance report for the past 30 days shows 97% compliance with an average use of 8 hours and 43 minutes per night. Current setting is 12/8 cm of water with a residual AHI of 14.2 events per hour, of note central events are only 0.5 events per hour.. Leaks do not appear to be problematic. Test results personally viewed patient: Low-dose CT lung screen completed on April 02, 2024. Impression is consistent with unchanged chronic right pleural fluid collection with associated pleural calcifications. Rounded atelectasis in the right lower lobe. Recommendation is to repeat LDCT in 12 months. Intake Vital Signs 08/28/23 09:46 09/02/24 07:51 09/02/24 10:29 Height 4 ft 10 in 4 ft 10 in 4 ft 10 in Weight: 118 lb BMI 24.6 BP 112/72 Blood Pressure Location Lt brachial Position Sitting Respiration 18 Pulse 73 Pulse Source Monitor Temp 97.2 F L Temperature Source Temporal Artery Pulse Oximetry (%) 96 Oxygen Delivery Method room air Intake Visit Reasons: 1 Y FU Chief Complaint: 1 yr FU DME Vendor: Abraham Is patient in pain?: No Allergies codeine Adverse Reaction (Intermediate, Verified 09/02/24 10:26) Vomiting Medications ???Medication ???Instructions ???Recorded ???Confirmed ???Type levothyroxine 25 mcg tablet 25 mcg PO DAILY 02/11/14 09/02/24 History divalproex 500 mg tablet,delayed 500 mg PO QHS 06/17/18 09/02/24 History release (Depakote) Have you fallen in the past year?: No PFSH Medical History Hx of psychiatric hospitalization History of mental disorder Restless leg syndrome Lung nodule FCO (obstructive sleep apnea) Bipolar disorder Chronic back pain Hypothyroidism Nonrheumatic mitral (valve) prolapse Surgical History History of cataract surgery History of hammer toe correction History of thoracentesis Family History Mother Diabetes Cancer Grandmother Diabetes Hypertension Social History Smoking Status: Former smoker how long ago did patient quit smokin second hand exposure: No alcohol intake: never substance use type: does not use Review of Systems Resp Respiratory: Yes as per HPI Exam Const Constitutional: Positive conversant, cooperative, in no acute respiratory distress, well developed, well nourished and good hygiene Head Head: Yes normocephalic, Yes atraumatic and No cyanosis of lips/distal nose Eyes Eye: Positive clear conjunctiva; N (more content not included)... Normal [facility] Urine Cultureon 07-25-2024 [facility] Presumptive E. coli [place] Count 80,000-100,000 Presumptive E. coli: REACTION Ampicillin Islt COLIN <=2 Ampicillin+Sulbac Islt COLIN <=2 S Cefepime Islt COLIN <=0.12 S cefTRIAXone Islt COLIN <=0.25 S Ciprofloxacin Islt COLIN <=0.06 S B-Lactamase Extended Susc Islt NEG Gentamicin Islt COLIN <=1 S levoFLOXacin Islt COLIN <=0.12 S Meropenem Islt COLIN <=0.25 S Nitrofurantoin Islt COLIN <=16 S Pip+Tazo Islt COLIN <=4 S TMP SMX Islt COLIN <=20 S Normal [facility] Comment on above: Performed By: #### M 100.2200 #### [facility] [address] [place], [place], [address] HIP, UNI W/ Pelvis 2-3 Views on 04-06-2024 HIP, UNI W/ Pelvis 2-3 Views [facility] Imaging Services [address] [place], [place] [address] HIP, UNI W/ Pelvis 2-3 Views MR#: [id number] Acct: [id number] Name: RICARDA OLIVA Rep #: [id number] : 1950 F 73 From: Vick tesfaye MD PCP: Dr. Libby Luque MD Status: [facility] Study: HIP, UNI W/ Pelvis 2-3 Views Date of Exam: Exam# [id number] Ordering Dr: Libby Luque MD [id number] STUDY: X-RAY - PELVIS AND LEFT HIP REASON FOR EXAM: Female, 73 years old. PAIN, STIFFNESS TECHNIQUE: 3 views of the pelvis and hip. COMPARISON: None. FINDINGS: There is a non-specific bowel gas pattern. Normal visualized soft tissue structures. Normal bilateral iliac wings, sacroiliac joints and visualized sacrum. Normal bilateral superior and inferior pubic rami. Normal pubic symphysis. Normal bilateral ischial tuberosities. Normal visualized femoral head. Normal acetabulum. Normal hip joint. RAD/HIP, UNI W/ Pelvis 2-3 Views IMPRESSION: Normal x-ray examination of the pelvis and hip. Electronically Signed: Vick Mcmahon MD at 22:55 EDT , CC: Dr. Libby Luque MD Hospitality Housekeeper: Signed Normal [facility] Shoulder min 2 Viewson 04-06 Shoulder min 2 Views [facility] Imaging Services [address] [place] [id number] Shoulder min 2 Views MR#: [id number] Acct: [id number] Name: RICARDA OLIVA Rep #: [id number] : 1950 F 73 From: Francisco Madden MD PCP: Dr. Libby Luque MD Status: REG CLI Study: Shoulder min 2 Views Date of Exam: 04/06/24 Exam# [id number] Ordering Dr: Libby Luque MD [id number] EXAM: XR RIGHT SHOULDER COMPLETE, 2 OR MORE VIEWS CLINICAL INDICATION: PAIN, STIFFNESS TECHNIQUE: Two or more views of the right shoulder. COMPARISON: No relevant prior studies available. FINDINGS: BONES/JOINTS: Small focus of soft tissue calcification anterior to the proximal humeral head may represent synovial chondromatosis are intra-articular loose body. No acute fracture or subluxation. SOFT TISSUES: Normal. No soft tissue swelling or gas. No radiopaque foreign body. LUNGS AND PLEURAL SPACES: Pleural-parenchymal changes of the right hemithorax noted associated with deformity of the right eighth rib. Correlate with recent CT chest. RAD/Shoulder min 2 Views IMPRESSION: No acute bone or joint abnormality of the shoulder. As above. Electronically Signed: Francisco Madden MD at 17:04 EDT , CC: Dr. Lbiby Luque MD Hospitality Housekeeper: Signed Normal [facility] Low Dose CT Lung Screeningon 04-02-[address] Lung Screening [facility] Imaging Services [address] [place], [place] [address] Low Dose CT Lung Screening MR#: [id number] Acct: [id number] Name: RICARDA OLIVA Rep #: [id number] : 1950 F 73 From: Eliu morfin DO PCP: Dr. Libby Luque MD Status: [facility] Study: Low Dose CT Lung Screening Date of Exam: 04/02 Exam# [id number] Ordering Dr: David Talavera DO [id number] EXAM: CT CHEST, LUNG CANCER SCREENING WITHOUT INTRAVENOUS CONTRAST CLINICAL INDICATION: H/O TOBACCO USE TECHNIQUE: Helically acquired images were obtained of the chest without intravenous contrast using low dose (LDCT) lung cancer screening protocol. This CT exam was performed using one or more of the following dose reduction techniques: automated exposure control, adjustment of the mA and/or kV according to patient size, and/or use of iterative reconstruction technique. COMPARISON: 03/19/2023 and 10/16/2015. PET/CT, 12/06/2019. FINDINGS: LUNGS AND PLEURAL SPACES: Unchanged chronic right pleural fluid collection with associated pleural calcifications. Mild apparent scarring and pleural thickening in the left lower lung similar to the prior examination. Unchanged cluster of nodules in the lingula laterally some abutting the pleura and others parenchymal, unchanged since prior examination with largest nodular focus measuring 1 cm. There are multiple 3 to 4 mm pleural-based pulmonary nodules in the left lower lobe which are unchanged since prior examination. There is a 3 mm right middle lobe pulmonary nodule which is unchanged compared to prior examination. There is a posterior right upper lobe pulmonary nodule measuring 2 to 3 mm which is new compared to the prior examination. Rounded atelectasis in the right lower lobe. No pneumothorax. HEART: Coronary artery calcifications. Heart size is normal. No pericardial effusion. MEDIASTINUM: No significant abnormality. No mediastinal or hilar adenopathy. Esophagus is unremarkable. No hiatal hernia. THYROID: No significant abnormality. No thyroid lesions. BONES/JOINTS: Chronic posttraumatic and/or operative changes of right posterior ribs. Degenerative changes in the spine. No suspicious lytic or blastic abnormality. VASCULATURE: Atherosclerosis. LYMPH NODES: No significant abnormality. No enlarged lymph nodes. CT/Low Dose CT Lung Screening IMPRESSION: 1. ACR Lung CT Screening Reporting And Data System (Lung-RADS) score: 2S - Benign Appearance or Behavior. Additional clinically significant or potentially clinically significant findings are described. Recommend continued annual screening with a low-dose CT (LDCT) in 12 months. 2. Unchanged chronic right pleural fluid collection with associated pleural calcifications. 3. Rounded atelectasis in the right lower lobe. Electronically Signed: Eliu Campos DO at 18:10 EDT , CC: Dr. David Talavera DO; Dr. Libby Luque MD Hospitality Housekeeper: Signed Normal [facility] CBC W Auto Differential pane l (Bld)on 03-01-2024 Basophils (Bld) [#/Vol] 0.05 x10*3/uL Normal 0.00-0.10 [facility] Comment on above: Performed By: #### 5 7021-8 #### CINDY BENJAMIN ([id number]) [facility] ([facility]) [address] [place] [address] Basophils/100 WBC (Bld) 1.0 % Normal 0.0-2.0 [facility] Comment on above: Performed By: #### 5 7021-8 #### CINDY BENJAMIN ([id number]) [facility] ([facility]) [address] [place] [address] Eosinophils (Bld) [#/Vol] 0.26 x10*3/uL Normal 0.00-0.40 [facility] Comment on above: Performed By: #### 5 7021-8 #### CINDY BENJAMIN ([id number]) [facility] ([facility]) [address] [place] [address] Eosinophils/100 WBC (Bld) 5.4 % Normal 0.0-6.0 [facility] Comment on above: Performed By: #### 5 7021-8 #### CINDY BENJAMIN ([id number]) [facility] ([facility]) [address] [place] [address] Erythrocyte distribution width (RBC) [Ratio] 14.5 % Normal 11.5-14.5 [facility] Comment on above: Performed By: #### 5 7021-8 #### CINDY BENJAMIN ([id number]) [facility] ([facility]) [address] [place] [address] Hematocrit (Bld) [Volume fraction] 40.0 % Normal 36.0-46.0 [facility] Comment on above: Performed By: #### 5 7021-8 #### CINDY BENJAMIN ([id number]) [facility] ([facility]) [address] [place] [address] 12053 Hemoglobin (Bld) [Mass/Vol] 12.8 g/dL Normal 12.0-16.0 [facility] Comment on above: Performed By: #### 5 7021-8 #### CINDY BENJAMIN ([id number]) [facility] ([facility]) [address] [place] [address]505 Immature granulocytes (Bld) [#/Vol] 0.01 x10*3/uL Normal 0.00-0.50 [facility] Comment on above: Performed By: #### 5 7021-8 #### CINDY BENJAMIN ([id number]) [facility] ([facility]) [address] [place] [address] Immature granulocytes/100 WBC (Bld) 0.2 % Normal 0.0-0.9 [facility] Comment on above: Result Comment: Edith ture Granulocyte Count (IG) includes promyelocytes, myelocytes and metamyelocytes but does not include bands. Percent differential counts (%) should be interpreted in the context of the absolute cell counts (cells/UL). Performed By: #### 5 7021-8 #### CINDY BENJAMIN ([id number]) [facility] ([facility]) [address] [place] [address] 48512 Lymphocytes (Bld) [#/Vol] 1.81 x10*3/uL Normal 0.80-3.00 [facility] Comment on above: Performed By: #### 7021-8 #### CINDY BENJAMIN ([id number]) [facility] ([facility]) [address] [place] [address] Lymphocytes/100 WBC (Bld) 37.8 % Normal 13.0-44.0 [facility] Comment on above: Performed By: #### 5 7021-8 #### CINDY BENJAMIN ([id number]) [facility] ([facility] [facility] [address] [place] [address] 41064 MCH (RBC) [Entitic mass] 31.1 pg Normal 26.0-34.0 [facility] Comment on above: Performed By: #### 5 7021-8 #### CINDY BENJAMIN ([id number]) [facility] ([facility]) [address] [place] [address] 82089 MCHC (RBC) [Mass/Vol] 32.0 g/dL Normal 32.0-36.0 [facility] Comment on above: Performed By: #### 5 7021-8 #### CINDY BENJAMIN ([id number]) [facility] ([facility]) [address] [place] [address] 97011 MCV (RBC) [Entitic vol] 97 fL Normal 80-100 [facility] Comment on above: Performed By: #### 5 7021-8 #### CINDY BENJAMIN ([id number]) [facility] ([facility]) [address] [place] [address] 18684 Monocytes (Bld) [#/Vol] 0.53 x10*3/uL Normal 0.05-0.80 [facility] Comment on above: Performed By: #### 5 7021-8 #### CINDY BENJAMIN ([id number]) [facility] ([facility]) [address] [place] [address] 38995 Monocytes/100 WBC (Bld) 11.1 % Normal 2.0-10.0 [facility] Comment on above: Performed By: #### 5 7021-8 #### CINDY BENJAMIN ([id number]) [facility] ([facility]) [address] [place] [address] 22718 Neutrophils (Bld) [#/Vol] 2.13 x10*3/uL Normal 1.60-5.50 [facility] Comment on above: Result Comment: Perc ent differential counts (%) should be interpreted in the context of the absolute cell counts (cells/uL). Performed By: #### 5 7021-8 #### CINDY BENJAMIN ([id number]) [facility] ([facility]) [address] [place] [address] 99748 Neutrophils/100 WBC (Bld) 44.5 % Normal 40.0-80.0 [facility] Comment on above: Performed By: #### 5 7021-8 #### CINDY BENJAMIN ([id number]) [facility] ([facility]) [address] [place] [address] 09632 Nucleated RBC/100 WBC (Bld) [Ratio] 0.0 /100 WBCs Normal 0.0-0.0 [facility] Comment on above: Performed By: #### 5 7021-8 #### CINDY BENJAMIN ([id number]) [facility] ([facility]) [address] [place] [address] 17046 Platelets (Bld) [#/Vol] 260 x10*3/uL Normal 150-450 [facility] Comment on above: Performed By: #### 5 7021-8 #### CINDY BENJAMIN ([id number]) [facility] ([facility]) [address] [place] [address] 59091 RBC (Bld) [#/Vol] 4.12 x10*6/uL Normal 4.00-5.20 [facility] Comment on above: Performed By: #### 5 7021-8 #### CINDY BENJAMIN ([id number]) [facility] ([facility]) [address] [place] [address] 76738 WBC (Bld) [#/Vol] 4.8 x10*3/uL Normal 4.4-11.3 [facility] Comment on above: Performed By: #### 5 7021-8 #### CINDY BENJAMIN ([id number]) [facility] ([facility]) [address] [place] [address] Comprehensive metabolic 2000 panelon 03-01-2024 Albumin BCP dye [Mass/Vol] 4.1 g/dL Normal 3.4-5.0 [facility] Comment on above: Performed By: #### 2 4323-8 #### CINDY BENJAMIN ([id number]) [facility] ([facility]) [address] [place] [address] ALP [Catalytic activity/Vol] 54 U/L Normal 33-136 [facility] Comment on above: Performed By: #### 2 4323-8 #### CINDY BENJAMIN ([id number]) [facility] ([facility]) [address] [place] [address] 96736 ALT With P-5'-P [Catalytic activity/Vol] 12 U/L Normal 7-45 [facility] Comment on above: Result Comment: Melida ents treated with Sulfasalazine may generate falsely decreased results for ALT. Performed By: #### 2 4323-8 #### CINDY BENJAMIN ([id number]) [facility] ([facility]) [address] [place] [address] 14984 Anion gap [Moles/Vol] 10 mmol/L Normal 10-20 [facility] Comment on above: Performed By: #### 2 4323-8 #### CINDY BENJAMIN ([id number]) [facility] ([facility]) [address] [place] [address] 02279 AST With P-5'-P [Catalytic activity/Vol] 17 U/L Normal 9-39 [facility] Comment on above: Performed By: #### 2 4323-8 #### CINDY BENJAMIN ([id number]) [facility] ([facility]) [address] [place] [address] Bilirubin [Mass/Vol] 0.5 mg/dL Normal 0.0-1.2 [facility] Comment on above: Performed By: #### 2 4323-8 #### CINDY BENJAMIN ([id number]) [facility] ([facility]) [address] [place] [address] Calcium [Mass/Vol] 9.4 mg/dL Normal 8.6-10.3 [facility] Comment on above: Performed By: #### 2 4323-8 #### CINDY BENJAMIN ([id number]) [facility] ([facility]) [address] [place] [address] 77642 Chloride [Moles/Vol] 104 mmol/L Normal 98-107 [facility] Comment on above: Performed By: #### 2 4323-8 #### CINDY BENJAMIN ([id number]) [facility] ([facility]) [address] [place] [address] 69114 CO2 [Moles/Vol] 30 mmol/L Normal 21-32 [facility] Comment on above: Performed By: #### 2 4323-8 #### CINDY BENJAMIN ([id number]) [facility] ([facility]) [address] [place] [address] 03089 Creatinine [Mass/Vol] 0.97 mg/dL Normal 0.50-1.05 [facility] Comment on above: Performed By: #### 2 4323-8 #### CINDY BENJAMIN ([id number]) [facility] ([facility]) [facility] [place] [address] Glomerular filtration rate/1.73 sq M.predicted 62 mL/min/1.73m*2 Normal >60 [facility] Comment on above: Result Comment: Calc ulations of estimated GFR are performed using the 2020 CKD-EPI Study Refit equation without the race variable for the IDMS-Traceable creatinine methods. https://jasn.asnjournals.org/content//ASN.276051 8318 Performed By: #### 2 4323-8 #### CINDY BENJAMIN ([id number]) [facility] ([facility]) [facility] [place] [address] Glucose [Mass/Vol] 89 mg/dL Normal 74-99 [facility] Comment on above: Performed By: #### 2 4323-8 #### CINDY BENJAMIN ([id number]) [facility] ([facility]) [address] [place] [address] 96307 Potassium [Moles/Vol] 5.2 mmol/L Normal 3.5-5.3 [facility] Comment on above: Performed By: #### 2 432-8 #### CINDY BENJAMIN ([id number]) [facility] ([facility]) [address] [place] [address] 30319 Protein [Mass/Vol] 6.3 g/dL Low 6.4-8.2 [facility] Comment on above: Performed By: #### 2 432-8 #### CINDY BENJAMIN ([id number]) [facility] ([facility]) [address] [place] [address] 25522 Sodium [Moles/Vol] 139 mmol/L Normal 136-145 [facility] Comment on above: Performed By: #### 2 432-8 #### CINDY BENJAMIN ([id number]) [facility] ([facility]) [address] [place] [address] 84025 Urea nitrogen [Mass/Vol] 27 mg/dL High 6-23 [facility] Comment on above: Performed By: #### 2 432-8 #### CINDY BENJAMIN ([id number]) [facility] ([facility]) [address] [place] [address] 15828 Valproateon 03-01-2024 Valproate [Mass/Vol] 62 ug/mL Normal 50-100 [facility] Comment on above: Performed By: #### 4 086-5 #### CINDY BENJAMIN ([id number]) [facility] ([facility]) [address] [place] [address] 45937 CBC AND DIFFERENTIALon 02-26 % AUTOMATED IMMATURE GRAN 0.2 % Normal 0.0 - 0.9 [facility] Comment on above: Result Comment: Edith ture Granulocyte Count (IG) includes promyelocytes, myelocytes and metamyelocytes but does not include bands. Percent differential counts (%) should be interpreted in the context of the absolute cell counts (cells/L). Performed By: #### C BCDF #### [address] [address] Basophils (Bld) [#/Vol] 0.05 10*3/uL Normal 0.00 - 0.10 [facility] Comment on above: Performed By: #### C BCDF #### [address] [address] Basophils/100 WBC (Bld) 1.1 % Normal 0.0 - 2.0 [facility] Comment on above: Performed By: #### C BCDF #### [address] [address] Eosinophils (Bld) [#/Vol] 0.29 10*3/uL Normal 0.00 - 0.40 [facility] Comment on above: Performed By: #### C BCDF #### [address] [address] Eosinophils/100 WBC (Bld) 6.1 % Normal 0.0 - 6.0 [facility] Comment on above: Performed By: #### C BCDF #### [address] [address] Erythrocyte distribution width (RBC) [Ratio] 14.9 % High 11.5 - 14.5 [facility] Comment on above: Performed By: #### C BCDF #### [address] [address] Hematocrit (Bld) [Volume fraction] 39.3 % Normal 36.0 - 46.0 [facility] Comment on above: Performed By: #### C BCDF #### [address] [address] Hemoglobin (Bld) [Mass/Vol] 12.4 g/dL Normal 12.0 - 16.0 [facility] Comment on above: Performed By: #### C BCDF #### [address] [address] Lymphocytes (Bld) [#/Vol] 1.73 10*3/uL Normal 0.80 - 3.00 [facility] Comment on above: Performed By: #### C BCDF #### [address] [address] Lymphocytes/100 WBC (Bld) 36.7 % Normal 13.0 - 44.0 [facility] Comment on above: Performed By: #### C BCDF #### [address] [address] MCHC (RBC) [Mass/Vol] 31.6 g/dL Low 32.0 - 36.0 [facility] Comment on above: Performed By: #### C BCDF #### [address] [address] MCV (RBC) [Entitic vol] 96 fL Normal 80 - 100 [facility] Comment on above: Performed By: #### C BCDF #### [address] [address] Monocytes (Bld) [#/Vol] 0.46 10*3/uL Normal 0.05 - 0.80 [facility] Comment on above: Performed By: #### C BCDF #### [address] [address] Monocytes/100 WBC (Bld) 9.7 % Normal 2.0 - 10.0 [facility] Comment on above: Performed By: #### C BCDF #### [address] [address] Neutrophils (Bld) [#/Vol] 2.18 10*3/uL Normal 1.60 - 5.50 [facility] Comment on above: Result Comment: Perc ent differential counts (%) should be interpreted in the context of the absolute cell counts (cells/L). Performed By: #### C BCDF #### [address] [address] Neutrophils/100 WBC (Bld) 46.2 % Normal 40.0 - 80.0 [facility] Comment on above: Performed By: #### C BCDF #### [address] [address] Platelets (Bld) [#/Vol] 288 10*3/uL Normal 150 - 450 [facility] Comment on above: Performed By: #### C BCDF #### [address] [address] RBC 4.08 x10E12/L Normal 4.00 - 5.20 [facility] Comment on above: Performed By: #### C BCDF #### [address] [address] WBC (Bld) [#/Vol] 4.7 10*3/uL Normal 4.4 - 11.3 [facility] Comment on above: Performed By: #### C BCDF #### [address] [address] COMPREHENSIVE PANELon 2022 Albumin [Mass/Vol] 4.0 g/dL Normal 3.4 - 5.0 [facility] Comment on above: Performed By: #### C MP #### [address] [address] ALP [Catalytic activity/Vol] 61 U/L Normal 33 - 136 [facility] Comment on above: Performed By: #### C MP #### [address] [address] ALT [Catalytic activity/Vol] 14 U/L Normal 7 - 45 [facility] Comment on above: Result Comment: Melida ents treated with Sulfasalazine may generate falsely decreased results for ALT. Performed By: #### C MP #### [address] [address] Anion gap [Moles/Vol] 9 mmol/L Low 10 - 20 [facility] Comment on above: Performed By: #### C MP #### [address] [address] AST [Catalytic activity/Vol] 15 U/L Normal 9 - 39 [facility] Comment on above: Performed By: #### C MP #### [address] [address] Bilirubin [Mass/Vol] 0.5 mg/dL Normal 0.0 - 1.2 [facility] Comment on above: Performed By: #### C MP #### [address] [address] Calcium [Mass/Vol] 9.2 mg/dL Normal 8.6 - 10.3 [facility] Comment on above: Performed By: #### C MP #### [address] [address] Chloride [Moles/Vol] 105 mmol/L Normal 98 - 107 [facility] Comment on above: Performed By: #### C MP #### [address] [address] Creatinine [Mass/Vol] 1.00 mg/dL Normal 0.50 - 1.05 [facility] Comment on above: Performed By: #### C MP #### [address] [address] GFR/1.73 sq M.predicted among non-blacks MDRD (S/P/Bld) [Vol rate/Area] 60 mL/min/{1.73_m2} Normal >90 [facility] Comment on above: Result Comment: CALC ULATIONS OF ESTIMATED GFR ARE PERFORMED USING THE 2020 CKD-EPI STUDY REFIT EQUATION WITHOUT THE RACE VARIABLE FOR THE IDMS-TRACEABLE CREATININE METHODS. https://jasn.asnjournals.org/content/early/ASN.259141 6918 Performed By: #### C MP #### [address] [address] Glucose [Mass/Vol] 85 mg/dL Normal 74 - 99 [facility] Comment on above: Performed By: #### C MP #### [address] [address] HCO3 (Bld) [Moles/Vol] 30 mmol/L Normal 21 - 32 [facility] Comment on above: Performed By: #### C MP #### [address] [address] Potassium [Moles/Vol] 4.6 mmol/L Normal 3.5 - 5.3 [facility] Comment on above: Performed By: #### C MP #### [address] [address] Protein [Mass/Vol] 6.7 g/dL Normal 6.4 - 8.2 [facility] Comment on above: Performed By: #### C MP #### [address] [address] Sodium [Moles/Vol] 139 mmol/L Normal 136 - 145 [facility] Comment on above: Performed By: #### C MP #### [address] [address] Urea nitrogen [Mass/Vol] 25 mg/dL High 6 - 23 [facility] Comment on above: Performed By: #### C MP #### [address] [address] VALPROIC ACIDon 02-26-2023 VALPROIC ACID 72 ug/mL Normal 50 - 100 [facility] Comment on above: Performed By: #### V ALPR #### [address] [address] 36on 12-19-2022 36 Patient does not nee d lab order or CT anymore. Cancelling Normal [facility] 36 Reason for Call: Pat ient is scheduled for CT Chest with contrast on 01/07/23. Patient will need creatinine lab done prior to CT. Please place order accordingly. If you have any questions please call Central Scheduling at [phone]. Thank you Normal [facility] Office Visiton 09-12-2022 Follow-up visit [id number] Yuliya Oliva 1950 F Date Provider Department Center 09/12/2022 20422-DDGYRYINOCENTE BARCLAY [facility] CT None Family History Problem Relation Age of Onset Diabetes Maternal Grandmother Cancer Mother Hypertension Maternal Grandmother Diabetes Mother Family Status - Relation Status Age at Maternal Grandmother Mother Level of Service:28902 [place] POSTOP FOLLOW UP VISIT RELATED TO ORIGINAL PX Reason for Visit and Comments: Post-op [483] Normal [facility] Progress Noteon 09-12-2022 Progress Note [facility]: [facility] [address] [facility] [address] Dept: [phone] Dept Loc: [phone] Visit type: Established patient Reason for Visit: Post-op Assessment and Plan 1. Pleural effusion Assessment & Plan: S/p Right minithoracotomy pulmonary decortication visceral pleural biopsy for pathology, Localized mechanical pleuradesis with Dr. Hendrickson on 08/23/22 POD #20 -stitch removal -incision healing appropriately no signs of infection -pain control-slight nerve pain; oxy as needed; continue tylenol, motrin -no weight restriction; ok to drive once off oxy (patient does not want to right now) -ROM exercises as described in d/c instruction -Path discussed briefly; final path per surgeon Disposition: As needed Patient verbalized understanding of plan and stated they would call if any questions or concerns arise. Treatment Team: PCP: Libby Luque MD Subjective HPI: 72 y.o. female seen in OP setting due to recurrent right sided pleural effusion. Patient consented to surgery and underwent right minithoracotomy pulmonary decortication visceral pleural biopsy, localized mechanical pleuradesis with Dr. Hendrickson on 08/23/22. Post operative course uncomplicated. 09/12/22: Initial inperson post op visit following discharge. Stitch removed. Incisions healing appropriately with no signs or symptoms of infection. ROM exercises discussed/reviewed. Pain controlled with PRNs slight nerve pain noted on anterior chest. Medications reviewed and patient compliant. All questions answered. present during exam. Review of Systems Constitutional: Negative for diaphoresis, fatigue and fever. Respiratory: Negative for cough, shortness of breath and wheezing. Cardiovascular: Positive for chest pain (neuropathic - anterior chest). Negative for palpitations and leg swelling. Gastrointestinal: Negative for abdominal distention, constipation and diarrhea. Skin: Negative for color change, pallor and rash. Allergies Allergen Reactions Gabapentin Meloxicam Leg swelling Codeine Nausea And Vomiting Other reaction(s): Nausea/vomiting, Severe nausea & vomiting Outpatient Medications Prior to Visit Medication Sig Dispense Refill aspirin 81 MG EC tablet Take 81 mg by mouth daily. divalproex (Depakote) 500 MG EC tablet Take 1 tablet by mouth Nightly. levothyroxine (Synthroid, Levoxyl) 25 MCG tablet TAKE 1 TABLET BY MOUTH IN THE MORNING on empty stomach oxyCODONE (Roxicodone) 5 MG immediate release tablet Take 1 tablet (5 mg) by mouth every 6 hours as needed for severe pain (7-10) for up to 7 days. 28 tablet 0 triamcinolone (Kenalog) 0.1 % cream Apply to any areas of rash or itching that you can see or feel on the body 1x a day as needed No facility-administered medications prior to visit. Past Medical History: Diagnosis Date Bipolar disorder, unspecified (HCC) Chronic back pain History of psychiatric hospitalization Hypothyroidism Lung nodule Mental disorder Nonrheumatic mitral (valve) prolapse FCO (obstructive sleep apnea) Restless leg syndrome Objective Patient reported: No flowsheet data found. Vitals: 09/12/22 0955 BP: 129/59 Pulse: 74 Temp: 36.4 ?C (97.5 ?F) Wt Readings from Last 3 Encounters: 09/12/22 122 lb 12.8 oz (55.7 kg) 08/25/22 120 lb 12.8 oz (54.8 kg) 07/25/22 120 lb 12.8 oz (54.8 kg) Physical Exam Cardiovascular: Rate and Rhythm: Normal rate and regular rhythm. Heart sounds: Normal heart sounds. Pulmonary: Effort: Pulmonary effort is normal. Breath sounds: Normal breath sounds. Abdominal: General: Bowel sounds are normal. Palpations: Abdomen is soft. There is no mass. Tenderness: There is no abdominal tenderness. Hernia: No hernia is present. Skin: General: Skin is warm and dry. Comments: Surgical Incisions: well approximate; clean dry with no drainage noted. Surrounding skin no redness, warmth, or signs of infection noted. Neurological: Mental Status: She is alert and oriented to person, place, and time. Data Reviewed and Summarized Labs/Imaging/Testing: reviewed EMR, see A&P for pertinent diagnostic results related to office visit Path: Final Diagnosis RIGHT LUNG VISCERAL PLEURA-DENSE, HYALINIZED FIBROUS TISSUE, COMPATIBLE WITH PLEURAL PLAQUE, WITH CHRONIC INFLAMMATION AND FIBRIN DEPOSITION Inocente Deras, WAREHOUSING TECHNICIAN - [employer] 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 Normal [facility] Progress Note S/p Right minithoracotomy pulmonary decortication visceral pleural biopsy for pathology, Localized mechanical pleuradesis with Dr. Hendrickson on 08/23/22 POD #20 -stitch removal -incision healing appropriately no signs of infection -pain control-slight nerve pain; oxy as needed; continue tylenol, motrin -no weight restriction; ok to drive once off oxy (patient does not want to right now) -ROM exercises as described in d/c instruction -Path discussed briefly; final path per surgeon [facility] 36on 09-09-2022 36 Case reviewed. Refill sent. Please notify patient. Myranda Feliciano, WAREHOUSING TECHNICIAN - [employer] 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 09/09/22 [facility] 36 Pt states she is sti ll having post op pain. Educated her on post op pain management listed below. She states she takes 1000mg Tylenol TID and only uses the Oxycodone for increased pain at night. Pt is requesting a refill of Oxycodone sent to [facility] in [place]. Please advise. Right minithoracotomy pulmonary decortication visceral pleural biopsy for pathology, Localized mechanical pleuradesis on 08/23/[address] Hendrickson. Post-Operative Pain Management: Over The Counter-Tylenol (acetaminophen) 500 mg 1-2 tablets every 6 hours. No more than 4,000 mg in 24 hour period. Over The Counter-Motrin (ibuprofen) 200-400 mg by mouth every 4-6 hours (or) 600-800mg every 8 hours. No more than 3,200 mg per day. Over The Counter-pain patches (Salon pas) may be used as needed next to incision but not directly on your incision. Ice packs may be applied for 20 minutes, then off for at least 20 minutes before reapplying. [facility] 36 Patient is calling i n and waking for a refill on the Oxycodone medication. Please call her back. [facility] [place] Thank you. [facility] 36on 09-03-2022 36 Spoke with patient. States she has gotten leg swelling multiple times in her life without clear reason. In the past, she has wrapped her legs for 20 minutes and elevated them, which resolved the swelling then. She admits to being more sedentary than normal since surgery. Has tried compression socks in the past, but this makes her neuropathy worse. I encouraged the patient to walk multiple times per day, okay to increase activity while maintaining lifting restrictions. Also okayed patient to wrap legs and elevate them 20 minutes 3x daily, which is what has worked in the past for her. Notify our office if swelling does not improve. Myranda Feliciano, WAREHOUSING TECHNICIAN - [employer] 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 09/03/22 [facility] 36 Patient had a VATS o n 08/23/22 Patient calling in and states she has some leg swelling in both and asking what she needs to do Please advise [facility] 36 Error [facility] 36on 09-01-2022 36 Spoke with patient a nd over phone. Patient with increased pain this AM but has since resolved with use of oxycodone. Discussed pain medication regimen. Encouraged acetaminophen 1000mg TID and use of oxy PRN. Patient states she really has not been taking much pain medication at all since she has been home. Has 20 oxycodone pills left. SOB resolved as pain controlled. Discussed with patient anticipated recovery. Overall, doing well. Patient to call office with any other questions or concerns. Hussein White, WAREHOUSING TECHNICIAN - [employer] 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 09/01/22 [facility] 36 Name of caller requesting page:Ricarda Phone Number of caller: [phone] Facility requesting page: Patient Reason for Page: Severe pain, SOB. Surgery 08/23 for Right thoracotomy, decortication, and pleurodesis. Provider paged: [facility] [place] of [place] [facility] [place] Placed to #: On-Call Finder Time Page was sent or provider contacted: 10:10 AM Page Content: Pt EthelJensen Zofia 1950 states she had SX 08/23 for right thoracotomy, decortication, and pleurodesis. Pt c/o severe pain in Right Lung area and SOB. Pt can be reached at [phone] Please advise [place] [address]on 08-27-2022 36 Pt states she had on e occurrence of blood tinged phlegm. Pt denies any other symptoms. Advised pt to call office if there are anymore occurrences or if she develops any symptoms. Also advised her to go to ED if she develops severe symptoms. Pt verbalizes understanding. [facility] 36 Patient was released from the hospital yesterday. She has been having coughing spells with phlegm and darker colored blood coming up. Please return her call to [phone]. Thank you. [facility] [id number] 08-26-2022 [id number] Pt declining home ca re services. [facility] CARECOORDon 08-26-2022 CARECOORD Care Managment Initi al Assessment Date: 08/26/2022 Patient Name: Ricarda Oliva : 1950 Patient Information Source of Information: Patient Cognition/Language: WFL - Within Functional Limits Permission given to speak with patient assistance representative/caregiver as indicated: Confirmation of Payer with patient/family: Yes Payer Name: Medicare [place]: No Confirmation of Primary Care Physician: Confirmed PCP Name: Dr. Genoveva Luque Seen in last 2 years?: Yes Primary Caregiver: If assistance needed, confirmed caregiver ready, willing and able to care for patient at discharge: Confirmed with: Living Arrangements Current Residence: House Number of Floors 2 Number of Entry Steps: 3 Bed/Bath Levels: Both first floor Facility: Facility Name: Plan to Return: Lives with: Spouse/significant other Support Systems: Spouse/significant other, Family members, Friends/neighbors Activities of Daily Living Ambulation: Independent Bathing/Dressing: Independent Elimination/Continence/T oileting: Independent Feeding: Independent Who Assists with Activities of Daily Living: Instrumental Activities of Daily Living Prescription Coverage: Yes Pharmacy Used: [facility] [place], [place] Medication Management: Independent Transportation/Shopping: Independent Transportation Mode: Car Needs Assistance with Transportation at Discharge: No Meal Preparation: Independent Laundry/Cleaning: Independent Finances/Bill Paying: Independent Communication: Independent Types of Care Services/Equipment Utilized Care Services: Dialysis Type: Durable Medical Equipment: Cane, BiPap Patient's Goal/Discharge Plan Patient expects to be discharged to: home Discharge Planning Actions: No needs identified Patient's Choice Rights and [employer] and Collaborative Relationships Disclosed as Indicated for Post-Acute Care: Interdisciplinary Team Engagement: Social Work Referral for: Additional Information: 72 yo female admitted to H6 s/p Surgery on 08/23/22: R VATS with pleurodesis and decortication. Pt has R chest tube to water seal. Plan to discontinue chest tube today. Met with pt; explained role of tcc. Pt lives with spouse. She is independent adls. She uses cane prn and uses bipap at hs. She denies any issues paying for rx medications. PT eval with recommendation of home care. Spoke with pt and she states she is doing very well and getting up on her own. She declines offer of home care. She denies any other needs from tcc. Anticipate possible discharge to home later today if medically stable. Madhuri Salcedo RN Normal [employer] [facility] No Panel InformationOrdered By: Jose Luis Arrington on 08-26-2022 Case Report Surgical Pathology C ase: [id number] Authorizing Provider: Sagar Hendrickson MD Collected: 08/23/2022 0754 Ordering Location: [facility] MAIN OR Received: 08/23/2022 1205 Pathologist: Jose Luis Arrington Jr., MD Specimen: Pleural Cavity, Right, RIGHT LUNG VISCERAL PLEURA [employer] Work Phone: Clinical Information m4ugkGQyBXHxqOHqVUQ wMlxh kkSpVHSbcGTbU5GecnueRNyo NR9kXP7zuNiuiBDgfTMhVQDo RnBus8vxo180eBKlk0ckHMGY ZRpjJCJXEIa2pDamA54jk6M7 ZhfxK6gxDNMrUUjvYGDkAJuw qCXxCGk2YZEolULbzdStIyDh NTPzbAXsqOH7EIXnHF9ljhnx BWqaOVofSICejmU1QQOdiKTz Y0EuJEWqNR7ajxqfFZQ9TAma LPSkIJG1JqRjQKQkv9Lpygq2 QpNyhBFlUYiqaIBcwCiwlF2v ZnMyMFxjZjEgUGxldXJhbCBl PiY6i7ezpcobcc16AHKmo1G8 yZBrGISpjPNjo1reuXAyTTaH OTBdXHBhcn0= [facility] Work Phone: Disclaimer k5ejnASuKDEgvLCeHyRj MDAw JJVfb5cyQLBezKWcMgNaSxFx YnRgSrpioMReUOZhCaSzf4fr c839mDZqu2joVJPqVeW3sAJu MJZwQ64qKPDPP788LGDtWJjw k1wzp6HvROJzuSNed8R2BCUP WFobXKCTSKr5hIswF29ja2X8 SneuW2siTKTpRMKkM1WgED6k IRPtVmb8QMH5OKG1HQMoJQOn W6OtUT4fJVYuwQJgABq5x0hw uWaxGPBoAYU3o7nhOCmewhVw SZ5zwk2jgRk3s3cervLbKLMt YXFxqGWFQRSdD1GupYlfYt2u qRp7nGvoBzuwSJU8Rlu6EJ5f lv90xrj4cMbhLXSmgmkwGcM0 YNzwGGPzemypZXn6AFsmWBDu vZG0HGIinUQeH8YuNOIdYT4k nsr7RPP0HJevAHRoYcU9ALDc qMOpQSYwaIapAEwyv105YFM9 NnOqNA1tX7Iqn9G3iC1wrGIp JXPxsLCnJzNnCCRnou3zfWIc FXist1WvTJI9zpP5nPRslQAm PANcTS26Kohzf0KbSadsBTP6 EPDofrCqa6Caq0weFnSvaiVj R4cwM8CbDGZeONAmUSVgOhLw wzXmy8Bsf4NqcGShzWo7k6wo COAvTFWxjStxi1iaBHP6ZXMr D3S4aNRhx9qxHRvcPINsbAZ2 jfV3KYHinHRkW6RovJ3gFTDs JS2szac3d5kyZJZ6WEgoLYZy PuT5wtX9JAQspNZnDBDhdAjb OCugo638OGV9FfUeVQCir1Od S9ZmjYwuU63kbEhqI66mZFIe ePszyF2mkSkvbN7hMeFmEtPf NFxxbFxwbGFpblxmMVxmczE2 RRhlawsvICTzSTpeX5reIfUc SCVjcNxfZMfvx1TsADShGDXp HZPqMLdrZ0eshN7pcvzqUNvu LNMzsYnzs2dqKuTkbKQ8CT4e ugZdSSCjhNjovuO1slCmrDho xD2agK6jrPdiqV6mgOErxLI3 cnksIGluIHNpdHUgaHlicmlk dAsnwLwbywdvxJ8jSHX4kUTd KQP3aQThSWDdNOTcHTXxuW82 kc6ckASfeqOnC9GzF0FaiQZf sDyyDj7wOWKudcqcFSXiRVbd ZZVqHKIsBuItvyYhf4XufM8i GXYoFQVjCW85olHsanK9hHRe YWJvdmUgdGVzdHMgaXMgcmVn dWxhdGVkIGFzIGFuIGFuYWx5 uECzf6HiK1zydPQoarYtD4Dr lSZjGGROJV5iXGkaj7AzoFBp dKIwj9GoEVIiNMPxlD0jKIBl WG8iOECqUPcpSTLiqxBsvp7g xuOnRUJxJMIbR9NeehgamFii vkBoOCNwde9afuAoBHH9MSFv ZSBjbGluaWNhbCBsYWJvcmF0 z2XcQBEmr9IuR8WzqYKrSDDv mKLlYAO4h4UybH9vQFhcvIQk XAYoAS0dbTMrLTAwTCExNPSw GIDzFznjaUwlALXYYKRmi1In IY0fHWMpcMlrJCAxtD7si0Si JHBoy78oKFFDLHcdNUWoQLLD REEgaGFzIGRldGVybWluZWQg uLozmDAnnOKjRTIhONKhOJ4i RZXbwvMleFUhb1IrgDWqcyNa o1OtdnZlCMKuNKN3OlPbmPZn YTVoimQOnAguiMihDHAjc9Lw FCzpvSNep7X1PFixvzK7JPZf DKSxubOqsh1iLXOsxsElYJIp NmGpndUwwJBxSLLcRIG4xTAt dWUuIEFwcHJvcHJpYXRlIHBv i5r4vQIlSREdQYAlPNhnvKx0 JEPqv568pt9skwRua1mpwjOi BSDfiOvfVSAnTHntt8XeUOWj qR7yiC1mwTKvAUwsWGsbd7r7 qHM2nAPzzBK4nTUzhXzcITCv LYFvkNRfXvT6vUMfYAMkg939 rh3dkwFieU10YQBfYTcnDLM6 WDRrp3SesS2xxlkybGR7wQVl qrogg5r6qHJnO3QrhDYuOnhs OVaocUBir3y3sEPbGoWkfVPa jqssYx1lJKVtMTfuIPWbWHDj MTZcbGFuZzEwMzNcaGljaFxm JXztJnSkAUPpKTnsK2zkLbPw NvRxYde7LLUnMXuwBENcqCmk hD0wOtFqGqMbBhljNE8hWYMd H4pvtXVxZDCuWPGrQ6yfHdPq xG3cpHkuCWkxduC4MZhpdRHz j7jmm6BfJ4nwqOdhUYcoFOEt CPeeBIuvqpLeds97QLCrRV7p rfEegYBoqOAsAL6wODVuQ5Ol F1xmcDPrVEAxz7J6YCTiQEab pGNksqzvFLxnevE3VSptuasx DMHtSEnbF0bcMkOwMMHptWgz XCkpc4JhUCKnCNSwYACysJZ3 OGCsP4CnIDVhBBllGBOwIQUx MTZcbGFuZzEwMzNcaGljaFxm XPyzNuLrUHZwIKruS0sgIuQx MeTwDzLPYQD2cVNnRJBjg3Bx ZCBiZSBpbnRlcnByZXRlZCB3 uTFiOOAcjXIav85bM7b5SB2j jPrgHVKxhDMsBQRyp8IkvSQl zBn6hLDqBoClXTocLTBaLCst rUv3kUG6PJ7lGYJuW9IcP3qa eFDtUHPdUFHyaVPcjm6dvHqn pA2kSxZwVhAmKkyfOW5wMIKs Y2evrKNrWYJsAPThM3fwLvHi sV4bmKnrPJbzjdWsKSYgog6= [employer] Work Phone: Gross Description e6hskAIzQUBuwZTxMALl Mlxh wePuRNBjpCNbD5KwgjxkDTqk NO7xWG4fqLryhHOqtYPdSBBw PrTpt1hdm822xFUzh2vnZSGJ AGyzYYRELDz7hLpnZ94lj9G3 JuhkS41ahAZzKWJ4HCRiORFs fFFxDYOwMAJ2HZSdbEDrJ3th PEQtSL8dibfwWQhwVZjwOIWq sDX1TCVhiNWcR1PwSLRoRAnb FUZckap0PkYaMp5epVOsaYoo MFxwYXJkXHBsYWluXGZzMjAg DrNtXBk5ZTIdvO3dAc6bbAZd kS4njSZdGBfqCCUlyngqpZMi nVRzLbO0iKLtKZDunVVxjTJ5 ntNlVOBkIVOzycGkG8ItKIBe CrSeL97muyVyIZ5dXIFoeXfs yFt4PP9mxVUhOU7neGUhaTud M4kak1zamDMcO2WakJF1rOPn tOKfZNgiqvSxANWiohpplI6n RNB3IEGgaKQgLeusW89hPKXQ tJDun6EiKaTyUAIsGITlDWoa z1SqdCldzN2gZM9wbzmjHlxn LyWyWf6wM2VxC0zzsSJexDiz ntMbKQNwWLtwJL27cLDwVMVp HDGCFRMxZZRatiCpqTy2MQIt YDW9oA4bnaJnbmLqw7KkeIu2 uEWpHVivDEC6qzEeYDZnFFE7 ZXMuIFxwYXJ9 [facility] Phone: Pathologist Interpretation Location [facility], [address] [place] [address], [place] [address], CLIA: [id number]; Joint Commission: [id number]; CAP: [id number] [facility] Appointedd Phone: Pathology report final diagnosis Narrative g9bifZFvKNVvcIVqGCSiWzeh fhUqLGIbjTHfO5VbfcenLSqi ST5qOV6qaGdipEKveKGnNCFv JvGmd7haw257hQNbo8caCZAW KPhtSYIRDDp6mTseC37yp1R4 UkwjW02exQEtYUC9IXPpWIWo aLZxAGIjRRR3WIGivMXeX8xa BGEqFB2motgaTVwhDUvuORDx mUE6VJBbtMRiG2TtQUWoSWai RFSqpsl2BmDbEd6vwJSpeDwm MFxwYXJkXHBsYWluXGZzMjAg HnYLE7qBWTyUVjhrJcbXN0IY YNexTJoUGCNQYwclueWvz7wf WIWXU7FwSYhDXEjUZmffZJBa CrxMKl2SMhWIJWFIBORcNKKZ BBNQNEtSRQDgY6cVKXAAEKHG OsGJWNPKTZPPEThxB5xNTXOZ DHVOHgfRNFsOVmsUZI5AXCpP VeRREiDjXikVCfoRHMKCDT6Z ELFNN11mgTOyzY== [employer] Work Phone: [employer] Work Phone: Nursing Noteon 08-26-2022 Nursing Note Pt. Alert and orient ed. PIV's have been removed. v groove cutter has been removed. AVS printed, reviewed, and given to patient. All questions and concerns have been addressed. Pt. Left unit ambulatory. Medications will be picked up from pharmacy. All belongings were given to patient. Normal [facility] Progress Noteon 08-26-2022 Progress Note Right thoracic carrie drain removed without issue Normal [facility] Progress Note ---- -------- Attestation signed by Sagar Hendrickson MD at 08/26/2022 2:26 PM I independently saw and evaluated the patient - including reviewing the labs, imaging studies, and available documentation. I agree with the findings and plan of care as documented by the resident/SKID MAN/PHARMACOGNOSIST/PA, unless otherwise noted. Please do not hesitate to contact me/us if you have any questions or concerns. Sagar Hendrickson MD FACS -------- CT SURGERY Progress Note PATIENT NAME: Ricarda Oliva TODAY'S DATE: 08/26/2022 SUBJECTIVE: NAEON. Some nausea with food, improving. Pain controlled. Denies f/c, SOB. States she feels very good. States she has been up and moving without difficulty. OBJECTIVE: VITALS: BP 125/68 (BP Location: Right arm, Patient Position: Lying) Pulse 77 Temp 36.4 ?C (97.6 ?F) (Temporal) Resp 18 Ht 4' 10 (1.473 m) Wt 120 lb 12.8 oz (54.8 kg) SpO2 96% BMI 25.25 kg/m? INTAKE/OUTPUT: I/O last 3 completed shifts: In: - (0 mL/kg) Out: 2780 (50.7 mL/kg) [Urine:2600 (1.3 mL/kg/hr); Chest Tube:180] Weight: 54.8 kg No intake/output data recorded. REVIEW OF SYSTEMS: Pertinent positives and negatives as per interval history section. PHYSICAL EXAM: CONSTITUTIONAL: No acute distress. Awake, alert, and oriented to person, place, and time. Appears well-nourished. CARDIOVASCULAR: RRR, physiologic S1 S2 LUNGS: R CT ss drainage on water seal without air leak. Resp effort easy and unlabored. Mild right anterolateral subcutaneous emphysema. GI: soft, NTND : No CVA tenderness, no suprapubic tenderness MUSCULOSKELETAL: Normal range of motion and no gross deformity in bilateral upper/lower extremities SKIN: Warm, dry, well-perfused NEUROLOGIC: CN 2-12 grossly intact, no focal neurologic deficits PSYCH: Normal affect, responds to questions appropriately Data: CBC: Recent Labs 08/23/22 0950 08/24/22 0217 WBC 6.8 10.6 HGB 11.9 12.8 HCT 35.1 38.6 PLT 225 317 BMP: Recent Labs 08/23/22 0950 08/24/22 0217 08/24/22 0643 NA 140 135 132* K 4.5 5.9* 4.9 CL 106 103 99 CO2 26 26 24 BUN 32* 29* 33* CREATININE 0.85 0.92 1.03 GLUCOSE 126* 121* 132* Hepatic: No results for input(s): AST, ALT, BILITOT, ALKPHOS in the last 72 hours. No lab exists for component: ALB ASSESSMENT AND PLAN: 72F s/p right pulmonary decortication and pleurodesis 08/23 for recurrent right pleural effusion with lung entrapment. - Place CT back to water seal - Plan to remove chest tube later today - Diet as tolerated - Pain control prn - OOBTC/ambulate - Discharge later today if doing well. Discussed follow up for stitch removal Normal [facility] Progress Note Chest tube canister appears to have been overturned sometime during the night and blood traveled over to where the water should be leaving the output practically impossible to measure. I can make an educated guess but that's all it will be and I will say somewhere between 20-40 ml I will not document this in I& O's because it is simply an educated guess. Normal [facility] XR Chest Single viewon 08-26 1. Right-sided chest tube. 2. No pneumothorax. 3. Stable subcutaneous air about the right chest and neck. Report Dictated on Electronically Signed By: Sunday Ralph Electronically Signed Date/Time: 08/26/2022 12:48 AM EST [facility] Patient Name: RICARDA OLIVA Exam Date/Time: 08/26/2022 00:46 Procedure: XR CHEST 1 VIEW Ordering Provider: HENDRICKSON KEVIN Reason For Exam: CLINICAL INFORMATION: Right-sided chest tube. Portable view of the chest at 0030 hours is provided and compared to a previous study dated August 25, 2022. FINDINGS: A right-sided chest tube is in place. There is no pneumothorax. There is stable subcutaneous air about the right chest and neck. The left lung is clear. [facility] Sunday Ralph MD - 08/26/2022 Patient Name: RICARDA OLIVA Exam Date/Time: 08/26/2022 00:46 Procedure: XR CHEST 1 VIEW Ordering Provider: HENDRICKSON KEVIN Reason For Exam: CLINICAL INFORMATION: Right-sided chest tube. Portable view of the chest at 0030 hours is provided and compared to a previous study dated August 25, 2022. FINDINGS: A right-sided chest tube is in place. There is no pneumothorax. There is stable subcutaneous air about the right chest and neck. The left lung is clear. IMPRESSION: 1. Right-sided chest tube. 2. No pneumothorax. 3. Stable subcutaneous air about the right chest and neck. Report Dictated on Electronically Signed By: Sunday Ralph Electronically Signed Date/Time: 08/26/2022 12:48 AM EST [facility] Radiology Study observation (narrative) [facility] Progress Noteon 08-25-2022 Progress Note Nutrition rescreen completed. Chart reviewed. Patient to be monitored and followed by the diet television technician. Normal [facility] SHS XR Chest Single viewon 08-25 Patient Name: RICARDA OLIVA Exam Date/Time: 08/25/2022 00:45 Procedure: XR CHEST 1 VIEW Ordering Provider: DERAS ANDREW Reason For Exam: CLINICAL INFORMATION: Shortness of breath. Right-sided chest tube. Portable view of the chest at 0045 hours is provided and compared to a previous study dated August 24, 2022. FINDINGS: A right-sided chest tube is in place. Atelectasis is noted in the right lung base. There is no pneumothorax. Subcutaneous air has increased about the right neck and chest. The left lung is clear. The heart size is normal. [facility] Sunday Ralph MD - 08/25/2022 Patient Name: RICARDA OLIVA Exam Date/Time: 08/25/2022 00:45 Procedure: XR CHEST 1 VIEW Ordering Provider: DERAS ANDREW Reason For Exam: CLINICAL INFORMATION: Shortness of breath. Right-sided chest tube. Portable view of the chest at 0045 hours is provided and compared to a previous study dated August 24, 2022. FINDINGS: A right-sided chest tube is in place. Atelectasis is noted in the right lung base. There is no pneumothorax. Subcutaneous air has increased about the right neck and chest. The left lung is clear. The heart size is normal. IMPRESSION: 1. Right-sided chest tube without pneumothorax. 2. Progression of subcutaneous air in the right chest and neck. Report Dictated on Electronically Signed By: Sunday Ralph Electronically Signed Date/Time: 08/25/2022 12:57 AM EST [facility] Radiology Study observation (narrative) [employer] XR Chest Single viewOrdered By: Sunday Ralph on 08-25-2022 [facility] [employer] Work Phone: Basic metabolic 1998 panelon 08-24-2022 Anion gap [Moles/Vol] 9 mmol/L 3 - 13 mmol/L [facility] [employer] Calcium [Mass/Vol] 8.7 mg/dL 8.4 - 10. 4 mg/dL [facility] [employer] Chloride [Moles/Vol] 99 mmol/L 98 - 10 7 mmol/L [facility] [employer] CO2 [Moles/Vol] 24 mmol/L 22 - 30 mmol/L [facility] [employer] Creatinine [Mass/Vol] 1.03 mg/dL 0.52 - 1.04 mg/dL [facility] [employer] GFR/1.73 sq M.predicted MDRD (S/P/Bld) [Vol rate/Area] 58.3 mL/min/{1.73_m2} Low - PINF [facility] Comment on above: Calculation based on the Chronic Kidney Disease Epidemiology Collaboration (CKD-EPI) equation refit without adjustment for race Glucose [Mass/Vol] 132 mg/dL High 70 - 100 mg/dL [facility] [employer] Interpretation and review of laboratory results Abnormal [facility] Potassium [Moles/Vol] 4.9 mmol/L 3.5 - 5.1 mmol/L [facility] Sodium [Moles/Vol] 132 mmol/L Low 135 - 145 mmol/L [facility] [employer] Urea nitrogen [Mass/Vol] 33 mg/dL High 7 - 17 mg/dL [facility] [employer] Basic metabolic 1997 panelOr dered By: Sam Sousa on 08-24-2022 Anion gap [Moles/Vol] 6 mmol/L 3 - 13 mmol/L [facility] [employer] Calcium [Mass/Vol] 9.0 mg/dL 8.4 - 10. 4 mg/dL [facility] [employer] Chloride [Moles/Vol] 103 mmol/L 98 - 10 7 mmol/L [facility] CO2 [Moles/Vol] 26 mmol/L 22 - 30 mmol/L [facility] Creatinine [Mass/Vol] 0.92 mg/dL 0.52 - 1.04 mg/dL [facility] GFR/1.73 sq M.predicted MDRD (S/P/Bld) [Vol rate/Area] 66.7 mL/min/{1.73_m2} - PINF [facility] Comment on above: Calculation based on the Chronic Kidney Disease Epidemiology Collaboration (CKD-EPI) equation refit without adjustment for race Glucose [Mass/Vol] 121 mg/dL High 70 - 100 mg/dL [facility] Interpretation and review of laboratory results Abnormal [facility] Potassium [Moles/Vol] 5.9 mmol/L High 3.5 - 5.1 mmol/L [facility] Sodium [Moles/Vol] 135 mmol/L 135 - 145 mmol/L [facility] Urea nitrogen [Mass/Vol] 29 mg/dL High 7 - 17 mg/dL [facility] Moderately hemolyzed . Interpret with caution. Tests affected: Potassium, Glucose. [facility] CBC panel Auto (Bld)Ordered By: Renay Patterson on 08-24-2022 Erythrocyte distribution width (RBC) [Ratio] 14.0 % 11.5 - 14.5 % [facility] Hematocrit (Bld) [Volume fraction] 38.6 % 35.0 - 47.0 % [facility] Hemoglobin (Bld) [Mass/Vol] 12.8 g/dL 11.7 - 16.0 g/dL [facility] Interpretation and review of laboratory results Normal [facility] MCH (RBC) [Entitic mass] 31.6 pg 26.0 - 34.[address] [facility] MCHC (RBC) [Mass/Vol] 33.1 % 32.0 - 36.0 % [facility] MCV (RBC) [Entitic vol] 95.5 fL 80.0 - 98.[address] [facility] Platelet mean volume (Bld) [Entitic vol] 8.8 fL 7.4 - 12.[address] [facility] Platelets (Bld) [#/Vol] 317 10*3/uL 140 - 440 10*3/uL [facility] RBC (Bld) [#/Vol] 4.04 10*6/uL 3.8 - 5.20 10*6/uL [facility] WBC (Bld) [#/Vol] 10.6 10*3/uL 3.6 - 10.7 10*3/uL [facility] Progress Noteon 08-24-2022 Progress Note Physical Therapy Facility/Department: [facility] Physical Therapy Initial Evaluation NAME: Ricarda Oliva : 1950 Date of Service: 08/24/2022 Discharge Recommendations: Home with Home health PT, 24 hour supervision or assist PT Equipment Recommendations Equipment Needed: (TBD) Assessment Assessment: Patient is a 72 yo female admitted due to pleural effusion s/p R minithoracotomy for pulmonary decortication and visceral pleura biopsy on 08/23. She is most limited by R-sided rib pain and impaired standing balance. She performed transfers with SBA and ambulated >400 feet without a device with hand-held assist/CGA. Patient lives with her who can assist. Anticipate return home with / supervision and home health PT. Performance Deficits/Impairments: Decreased balance, Decreased strength, Decreased functional mobility , Increased pain Decision Making: Medium Complexity Requires PT Follow-Up: Yes Discharge Recommendations: Home with Home health PT, 24 hour supervision or assist Activity Tolerance Activity Tolerance: Patient Tolerated treatment well Patient Diagnosis(es): The primary encounter diagnosis was Pleural effusion. Diagnoses of Pleural effusion, not elsewhere classified and S/P thoracotomy were also pertinent to this visit. has a past medical history of Bipolar disorder, unspecified (HCC), Chronic back pain, History of psychiatric hospitalization, Hypothyroidism, Lung nodule, Mental disorder, Nonrheumatic mitral (valve) prolapse, FCO (obstructive sleep apnea), and Restless leg syndrome. has a past surgical history that includes Toe Surgery; Thoracentesis; Cataract extraction; and Dilation and curettage of uterus. Restrictions Restrictions/Precautions Restrictions/Precautions : Fall Risk, General Precautions Required Braces or Orthoses?: No Position Activity Restriction Other position/activity restrictions: continuous pulse ox, chest tube Vision/Hearing Cognition/Orientation Overall Cognitive Status: WFL Overall Orientation Status: Within Functional Limits (A&O x4) Subjective General Chart Reviewed: Yes Patient Assessed for Rehabilitation Services: Yes Additional Pertinent Hx: bipolar disorder, chronic back pain Response To Previous Treatment: Not applicable Family / Caregiver Present: No Diagnosis: pleural effusion s/p R minithoracotomy for pulmonary decortication and visceral pleura biopsy on 08/23 Follows Commands: Within Functional Limits Subjective Subjective: RN cleared patient for PT eval. Patient up in chair, pleasant and agreeable to therapy. Pain Assessment Pain Assessment: 0-10 Pain Score: (no rating provided) Pain Type: Acute pain, Surgical pain Pain Location: Rib cage Pain Orientation: Right Pre Treatment Pain Screening Intervention List: Patient able to continue with treatment Orientation Orientation Overall Orientation Status: Within Functional Limits (A&O x4) Social/Functional History Social/Functional History Lives With: Spouse Type of Home: House Home Layout: Two level, Able to Live on Main level with bedroom/bathroom (bedroom and full bath on main level) Home Access: Stairs to enter with rails Entrance Stairs - Number of Steps: 3 Bathroom Shower/Tub: Walk-in shower Bathroom Equipment: Shower chair Home Equipment: Cane Receives Help From: Family ADL Assistance: Independent Homemaking Assistance: Independent Homemaking Responsibilities: Yes (shares with ) Ambulation Assistance: Independent (no device) Transfer Assistance: Independent Additional Comments: is available to assist 03/03 Objective Observation/Palpation Posture: Fair AROM RLE (degrees) RLE AROM: WFL AROM LLE (degrees) LLE AROM : WFL Strength RLE Strength RLE: WFL Comment: at least 3+/5 based on functional observation Strength LLE Strength LLE: WFL Comment: at least 3+/5 based on functional observation Tone RLE RLE Tone: Normotonic Tone LLE LLE Tone: Normotonic Bed mobility Comment: N/T - in chair pre/post session Transfers Sit to Stand: Stand by assistance Stand to sit: Stand by assistance Comment: from chair, cues for hand placement Ambulation Ambulation: Yes Ambulation 1 Surface 1: Level tile Device 1: (hand-held assist) Assistance 1: Contact guard Quality of Gait 1: slow bj Distance (ft) 1: 415 feet Comments 1: patient ambulated on unit with hand-held assist and occasional CGA, no LOB, demo mild dyspnea but able to carry on conversation throughout bout (difficulty getting O2 reading on continuous pulse ox) Balance Posture: Fair Sitting - Static: Good Sitting - Dynamic: Good Standing - Static: Fair Standing - Dynamic: Fair Other exercises Other exercises?: Yes Other exercises 1: IS x10 reps, 500-750 ml, cues for improved technique Plan Times per Week: 5-7 Plan Weeks: 2 Current Treatment Recommendations: Strengthening, ROM, Corina (more content not included)... Normal [facility] SHS XR CHEST 1 VIEWon 08-24-2022 XR CHEST 1 VIEW Patient Name: RICARDA OLIVA Exam Date/Time: 08/24/2022 05:33 Procedure: XR CHEST 1 VIEW Ordering Provider: DERAS ANDREW Reason For Exam: CHEST (Frontal View) History: Respiratory abnormality Comparison: 08/23/2022 Findings: Frontal chest view shows right basilar atelectasis/infiltrate,, slightly increased compared to last exam. There is smaller linear left basilar atelectasis. There is probable tiny right basilar pneumothorax and minimal pleural effusion with right chest tube and subcutaneous emphysema noted. Both lungs show interstitial prominence without overt congestion. The heart is normal in size. There is no mediastinal widening or other significant interval change. Report Dictated on Electronically Signed By: Diana Romero Electronically Signed Date/Time: 08/24/2022 7:43 AM EST [facility] XR Chest Single viewon 08-24 Patient Name: RICARDA OLIVA Exam Date/Time: 08/24/2022 05:33 Procedure: XR CHEST 1 VIEW Ordering Provider: DERAS ANDREW Reason For Exam: CHEST (Frontal View) History: Respiratory abnormality Comparison: 08/23/2022 Findings: Frontal chest view shows right basilar atelectasis/infiltrate,, slightly increased compared to last exam. There is smaller linear left basilar atelectasis. There is probable tiny right basilar pneumothorax and minimal pleural effusion with right chest tube and subcutaneous emphysema noted. Both lungs show interstitial prominence without overt congestion. The heart is normal in size. There is no mediastinal widening or other significant interval change. Report Dictated on Electronically Signed By: Diana Romero Electronically Signed Date/Time: 08/24/2022 7:43 AM [facility] Diana Romero MD - 08/24/2022 Patient Name: RICARDA OLIVA Exam Date/Time: 08/24/2022 05:33 Procedure: XR CHEST 1 VIEW Ordering Provider: DERAS ANDREW Reason For Exam: CHEST (Frontal View) History: Respiratory abnormality Comparison: 08/23/2022 Findings: Frontal chest view shows right basilar atelectasis/infiltrate,, slightly increased compared to last exam. There is smaller linear left basilar atelectasis. There is probable tiny right basilar pneumothorax and minimal pleural effusion with right chest tube and subcutaneous emphysema noted. Both lungs show interstitial prominence without overt congestion. The heart is normal in size. There is no mediastinal widening or other significant interval change. Report Dictated on Electronically Signed By: Diana Romero Electronically Signed Date/Time: 08/24/2022 7:43 AM EST [facility] Radiology Study observation (narrative) [facility] XR Chest Single viewOrdered By: Diana Romero on 08-24-[address] [facility] Work Phone: [phone] 08-23-2022 [id number] [employer] Rough Opener following case for Discharge Needs. Normal [facility] System SHS ABO and Rh group Confirm Nom (Bld)on 08-23-2022 ABO group Nom (Bld) A [facility] D Ag Ql (RBC) Positive [facility] Basic metabolic 1998 panelon 08-23-2022 Anion gap [Moles/Vol] 9 mmol/L 3 - 13 mmol/L [facility] Calcium [Mass/Vol] 8.5 mg/dL 8.4 - 10. 4 mg/dL [facility] Chloride [Moles/Vol] 106 mmol/L 98 - 10 7 mmol/L [facility] CO2 [Moles/Vol] 26 mmol/L 22 - 30 mmol/L [facility] Creatinine [Mass/Vol] 0.85 mg/dL 0.52 - 1.04 mg/dL [facility] GFR/1.73 sq M.predicted MDRD (S/P/Bld) [Vol rate/Area] 73.4 mL/min/{1.73_m2} - PINF [facility] Comment on above: Calculation based on the Chronic Kidney Disease Epidemiology Collaboration (CKD-EPI) equation refit without adjustment for race Glucose [Mass/Vol] 126 mg/dL High 70 - 100 mg/dL [facility] Interpretation and review of laboratory results Abnormal [facility] Potassium [Moles/Vol] 4.5 mmol/L 3.5 - 5.1 mmol/L [facility] Sodium [Moles/Vol] 140 mmol/L 135 - 145 mmol/L [facility] Urea nitrogen [Mass/Vol] 32 mg/dL High 7 - 17 mg/dL [facility] Blood type and Crossmatch pa tracy (Bld)on 08-23-2022 ABO group Nom (Bld) A [facility] Blood group antibody screen GEL Ql Negative [facility] D Ag Ql (RBC) Positive [facility] CBC panel Auto (Bld)Ordered By: Mao Avalos on 08-23-2022 Erythrocyte distribution width (RBC) [Ratio] 14.2 % 11.5 - 14.5 % [facility] Hematocrit (Bld) [Volume fraction] 35.1 % 35.0 - 47.0 % [facility] Hemoglobin (Bld) [Mass/Vol] 11.9 g/dL 11.7 - 16.0 g/dL [facility] Interpretation and review of laboratory results Abnormal [facility] MCH (RBC) [Entitic mass] 32.7 pg 26.0 - 34.[address] [facility] MCHC (RBC) [Mass/Vol] 33.9 % 32.0 - 36.0 % [facility] MCV (RBC) [Entitic vol] 96.6 fL 80.0 - 98.[address] [facility] Platelet mean volume (Bld) [Entitic vol] 8.7 fL 7.4 - 12.[address] [facility] Platelets (Bld) [#/Vol] 225 10*3/uL 140 - 440 10*3/uL [facility] RBC (Bld) [#/Vol] 3.63 10*6/uL Low 3.8 - 5.20 10*6/uL [facility] WBC (Bld) [#/Vol] 6.8 10*3/uL 3.6 - 10.7 10*3/uL [facility] CBC panel Auto (Bld)on 08-23 Erythrocyte distribution width (RBC) [Ratio] 14.4 % 11.5 - 14.5 % [facility] Hematocrit (Bld) [Volume fraction] 37.3 % 35.0 - 47.0 % [facility] Hemoglobin (Bld) [Mass/Vol] 12.4 g/dL 11.7 - 16.0 g/dL [facility] Interpretation and review of laboratory results Normal [facility] MCH (RBC) [Entitic mass] 31.7 pg 26.0 - 34.[address] [facility] MCHC (RBC) [Mass/Vol] 33.2 % 32.0 - 36.0 % [facility] MCV (RBC) [Entitic vol] 95.5 fL 80.0 - 98.[address] [facility] Platelet mean volume (Bld) [Entitic vol] 8.8 fL 7.4 - 12.[address] [facility] Platelets (Bld) [#/Vol] 283 10*3/uL 140 - 440 10*3/uL [facility] RBC (Bld) [#/Vol] 3.91 10*6/uL 3.8 - 5.20 10*6/uL [facility] WBC (Bld) [#/Vol] 6.1 10*3/uL 3.6 - 10.7 10*3/uL [facility] Comprehensive metabolic 1998 panelon 08-23-2022 Albumin [Mass/Vol] 3.9 g/dL 3.5 - 5.0 g/dL [facility] ALP [Catalytic activity/Vol] 55 U/L 38 - 126 U/L [facility] ALT [Catalytic activity/Vol] 15 U/L 0 - 34 U/L [facility] Anion gap [Moles/Vol] 5 mmol/L 3 - 13 mmol/L [facility] AST [Catalytic activity/Vol] 28 U/L 15 - 46 U/L [facility] Bilirubin [Mass/Vol] 0.4 mg/dL 0.2 - 1 .3 mg/dL [facility] Calcium [Mass/Vol] 9.0 mg/dL 8.4 - 10. 4 mg/dL [facility] Chloride [Moles/Vol] 109 mmol/L High 98 - 10 7 mmol/L [facility] CO2 [Moles/Vol] 23 mmol/L 22 - 30 mmol/L [facility] Creatinine [Mass/Vol] 0.89 mg/dL 0.52 - 1.04 mg/dL [facility] GFR/1.73 sq M.predicted MDRD (S/P/Bld) [Vol rate/Area] 69.4 mL/min/{1.73_m2} - PINF [facility] Comment on above: Calculation based on the Chronic Kidney Disease Epidemiology Collaboration (CKD-EPI) equation refit without adjustment for race Glucose [Mass/Vol] 87 mg/dL 70 - 100 mg/dL [facility] Interpretation and review of laboratory results Abnormal [facility] Potassium [Moles/Vol] 4.6 mmol/L 3.5 - 5.1 mmol/L [facility] Protein [Mass/Vol] 6.9 g/dL 6.3 - 8.2 g/dL [facility] Sodium [Moles/Vol] 138 mmol/L 135 - 145 mmol/L [facility] Urea nitrogen [Mass/Vol] 33 mg/dL High 7 - 17 mg/dL [facility] Slightly Hemolyzed. Interpret ALKALINE PHOSPHATASE, AST, and POTASSIUM with caution. [facility] ECG 12-LEADon 08-23-2022 ECG 12-LEAD IMPRESSION: Sinus rhythm Normal EKG Electronically Signed On 08-23-2022 14:39:51 EST by Popeye Lazo Normal [facility] System SHS No Panel InformationOrdered By: Popeye Lazo on 08-23-2022 P [place] 72 degrees [employer] Work Phone: MI Interval 165 ms [employer] Work Phone: QRS [place] -1 degrees [employer] Phone: QRSD Interval 82 ms [facility] [employer] Work Phone: QT Interval 415 ms [employer] Work Phone: QTC Interval 423 ms [employer] Work Phone: T Wave [place] 27 degrees [employer] Work Phone: [employer] Phone: No Panel Informationon 08-23 Sinus rhythm Normal EKG Electronically Signed On 08-23-2022 14:39:51 EST by Popeye Lazo CV Popeye Foster MD - 08/23/2022 IMPRESSION: Sinus rhythm Normal EKG Electronically Signed On 08-23-2022 14:39:51 EST by Popeye Applekatty [facility] Nursing Noteon 08-23-2022 Nursing Note Awaiting x-ray to preform ordered x-ray. Normal [facility] Nursing Note Report given to Ivania. Normal [facility] Nursing Note Nasal airway removed. Normal S [facility] Nursing Note Nasal airway placed, left nare. Pt tolerated without difficulty. 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 Oliva is a 72-year-old female referred with multiple right-sided pleural effusion recurrences dating back 9 years. The patient was referred for the after mentioned surgical procedure Complications: None Anesthesia: GETA Procedure in detail: The patient was placed on the operating table in the supine position and general endotracheal anesthesia was induced with a double-lumen ET tube in place the patient was repositioned in the left lateral decubitus position for access to the right chest which was prepped and draped in usual sterile fashion. The 5 mm thoracoscope was initially introduced there was a large rind on the lung which was confluent in the parietal pleura was extremely thick the case is clearly not amenable to thoracoscopic surgery. Therefore, a right minithoracotomy was performed a portion of the seventh rib was removed posteriorly and the retractor positioned and meticulous pulmonary decortication was performed on the right middle and lower lobe I did reinflate the lung and reasonable inflation was evident there was 1 area posterolaterally in the right lower lobe that has significant air leakage on a raw surface to which I applied pro gel glue. The visceral pleura was submitted for pathology. A localized mechanical pleurodesis was performed on the chest wall and diaphragm the right lower lobe on the superior aspect and the entire right upper lobe were not decorticated because the lung was integral with the chest wall with an approximate 1 cm thick pleural adherence again, I did attempt to free this area and was into the parenchyma of the lung and therefore did not proceed in this itarea superiorly. 2 containers of talc were then insufflated into the lower chest cavity and a 24 Nigerian Carrie drain was placed in the chest cavity through the separate incision site the ribs were reapproximated with #2 Vicryl and the soft tissues were closed with Vicryl in layers and the skin with Monocryl the patient was extubated having tolerated the procedure well no airleak was evident on the Pleur-evac patient was transferred to the recovery room stable end of report Normal [facility] Vital signsOrdered By: Anastasiya Lazo on 08-23-2022 Heart rate 62 /min bpm [facility] Work Phone: XR CHEST 1 VIEWon 08-23-2022 XR CHEST 1 VIEW Patient Name: RICARDA OLIVA Exam Date/Time: 08/23/2022 11:35 Procedure: XR CHEST 1 VIEW Ordering Provider: DERAS ANDREW Reason For Exam: Clinical History: Chest tube placement Comparison: 08/23/2022 at 1037 hours Technique: Single AP radiograph of the chest. IMPRESSION: Findings/impression: No significant change from prior examination. Report Dictated on Electronically Signed By: David Castillo Electronically Signed Date/Time: 08/23/2022 12:02 PM EST Normal [facility] XR CHEST 1 VIEW Patient Name: RICARDA OLIVA Exam Date/Time: 08/23/2022 10:38 Procedure: XR CHEST 1 VIEW Ordering Provider: OCAMPO DANIELLE Reason For Exam: Clinical History: chest tube placement Comparison: 07/22/2022 Technique: Single AP radiograph of the chest. Findings: Cardiomediastinal silhouette and pulmonary vasculature are normal. Patchy right lung opacity is present with improved obscuration of the right costophrenic angle. New right basilar chest tube seen with no sizable pneumothorax. Small amount of subcutaneous air is seen in the right chest wall. IMPRESSION: Impression: 1. New right basilar chest tube with improvement of small right pleural effusion. 2. Mild residual patchy atelectasis/infiltrates in the right lung base. Report Dictated on Electronically Signed By: David Castillo Electronically Signed Date/Time: 08/23/2022 11:42 AM [facility] SHS XR Chest Single viewon 08-23 Findings/impression: No significant change from prior examination. Report Dictated on Electronically Signed By: David Castillo Electronically Signed Date/Time: 08/23/2022 12:02 PM [facility] Patient Name: RICARDA OLIVA Exam Date/Time: 08/23/2022 11:35 Procedure: XR CHEST 1 VIEW Ordering Provider: DERAS ANDREW Reason For Exam: Clinical History: Chest tube placement Comparison: 08/23/2022 at 1037 hours Technique: Single AP radiograph of the chest. [facility] David Castillo MD - 08/23/2022 Patient Name: RICARDA OLIVA Exam Date/Time: 08/23/2022 11:35 Procedure: XR CHEST 1 VIEW Ordering Provider: DERAS ANDREW Reason For Exam: Clinical History: Chest tube placement Comparison: 08/23/2022 at 1037 hours Technique: Single AP radiograph of the chest. IMPRESSION: Findings/impression: No significant change from prior examination. Report Dictated on Electronically Signed By: David Castillo Electronically Signed Date/Time: 08/23/2022 12:02 PM [facility] Impression: 1. New right basilar chest tube with improvement of small right pleural effusion. 2. Mild residual patchy atelectasis/infiltrates in the right lung base. Report Dictated on Electronically Signed By: David Castillo Electronically Signed Date/Time: 08/23/2022 11:42 AM [facility] Patient Name: RICARDA OLIVA Exam Date/Time: 08/23/2022 10:38 Procedure: XR CHEST 1 VIEW Ordering Provider: OCAMPO DANIELLE Reason For Exam: Clinical History: chest tube placement Comparison: 07/22/2022 Technique: Single AP radiograph of the chest. Findings: Cardiomediastinal silhouette and pulmonary vasculature are normal. Patchy right lung opacity is present with improved obscuration of the right costophrenic angle. New right basilar chest tube seen with no sizable pneumothorax. Small amount of subcutaneous air is seen in the right chest wall. [facility] Jonathan, David Caban MD - 08/23/2022 Patient Name: RICARDA OLIVA [facility]#: [id number] Exam Date/Time: 08/23/2022 10:38 Procedure: XR CHEST 1 VIEW Ordering Provider: OCAMPO DANIELLE Reason For Exam: Clinical History: chest tube placement Comparison: 07/22/2022 Technique: Single AP radiograph of the chest. Findings: Cardiomediastinal silhouette and pulmonary vasculature are normal. Patchy right lung opacity is present with improved obscuration of the right costophrenic angle. New right basilar chest tube seen with no sizable pneumothorax. Small amount of subcutaneous air is seen in the right chest wall. IMPRESSION: Impression: 1. New right basilar chest tube with improvement of small right pleural effusion. 2. Mild residual patchy atelectasis/infiltrates in the right lung base. Report Dictated on Electronically Signed By: David Castillo Electronically Signed Date/Time: 08/23/2022 11:42 AM EST [employer] Radiology [facility]narrative[facility] [employer] XR Chest Single viewOrdered By: David Castillo on 08-23-2022 [employer] Work Phone: [employer] Phone: 36on 08-21-2022 36 Name of caller requesting page:Ricarda Phone Number of caller: [phone] Facility requesting page: N/A Reason for Page: little trouble breathing Provider paged: Practice Name of paged provider: Cardiothoracic surgery Page Placed to #: N/A Time Page was sent or provider contacted: 4:45 PM Page Content: Patient is requesting a call back at [phone] stating she is having a little trouble breathing and she is having surgery on Friday. Please advise [facility] Psychiatry Adulton 3 Psychiatry Adult Diagnoses/Problems Assessed Bipolar disorder with depression (296.50) (F31.9) History of bipolar disorder (V11.1) (Z86.59) Sleep disorder (780.50) (G47.9) Patient Discussion/Summary 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 You were seen with your Cain throughout this appointment. We reviewed your most recent and past valproate levels, cbc and chemistries. The plan is to continue Depakote 500 mg daily at bedtime and obtain valproate, cbc and cmp as discussed. The FDA benefits and risks of Depakote including hepatic toxicity, platelet aggregation effects, drug interaction with lamotrigine and other medications, possible dyskinesias and toxic epidermal necrolysis (TEN) syndrome were all discussed. Please follow up in February of 2023 and sooner virtually if needed as discussed today. For all urgent or emergency matters please call 911, go to urgent care or the emergency department of the nearest hospital. Chief Complaint Face - To - Face Visit. I am doing better. Adult Risk Screening Spiritual and Cultural: Patient Declined. Initial Fall Risk Screening: RICARDA has not fallen in the last 6 months. Her fall did not result in injury. RICARDA does not have a fear of falling. She does not need assistance with sitting, standing or walking. Does not need assistance walking in her home. She does not need assistance in an unfamiliar setting. The patient is not using an assistive device. Tobacco Screening: Has not used tobacco in the past 6 months. Has not tried to quit or thought about quitting tobacco. Domestic Violence Screen: Does not feel threatened or abused physically, emotionally or sexually. Do you feel UNSAFE? The patient feels safe in the home. Depression/Suicide Screening: During the past 2 weeks, the patient felt down, depressed or hopeless. During the past 2 weeks, the patient has not felt little interest or pleasure in doing things. She does not have a risk of suicide. She has not had thoughts of harming others. Single alcohol screening question: In the past year the patient has had 5 or more drinks (men) or 4 or more drinks (women)? None. time(s). Single substance abuse screening question: In the past year the patient has used a recreational drug or used a prescription drug for non-medical reasons? None. time(s). Procedure or Sedation Areas: patient has not had alcohol, recreational drugs, or prescription drugs for non-medical reasons this morning. Nutrition Screening: In the past month, there was not a day when I or anyone in my family went hungry because there was not enough food. Patient Education: The patient denies that they or the person with them has problems with hearing, speaking, seeing, moving around or learning The patient is comfortable filling out medical forms. History of Present Illness Ms. RICARDA OLIVA denies any suicidal or homicidal ideation or plans. The patient reports that she has substantial issues with marital issues and conflicts with her brother and sister. Review of Systems Depressive Symptoms: not depressed or irritable, no loss of interest, no change in appetite, no recent lb weight gain, no recent lb weight loss, no insomnia, no fatigue or loss of energy, not feeling worthless or guilty, normal concentration, ability to make decisions, no suicidal ideation, no guns or weapons in household. Manic Symptoms: mood is not irritable or elevated, self esteem is not grandiose or increased, no changes in need for sleep, not more talkative than usual, does not have flight of ideas or racing thoughts, no distractibility, no psychomotor agitation or increased goal-directed activity, no excessive involvement in pleasurable activities. Psychotic Symptoms: no hallucinations, no delusions, no disorganized speech, does not have disorganized behavior or catatonia, no negative symptoms. Anxiety Symptoms: no panic attacks, no concerns about future panic attacks, no worry about panic attack consequences, no change in behavior due to panic attacks, no excessive worry, no difficulty controlling worry, no increase in arousal, not easily fatigued due to worry, no difficulty concentrating due to worry, no irritability due to worry, no muscle tension due to worry, no sleep disturbances due to worry, no specific phobia, no social phobia, no obsessions, no compulsions, no exposure to traumatic event, no re-experiencing of traumatic event, no avoidance of stimuli and number of responsiveness, no restlessness / feeling on edge due to worry. Delirium/ Altered Mental Status Symptoms: no disturbances of consciousness, no diminished ability to focus, sustain, shift attention, no change in cognition or perceptual disturbances, symptoms do not fluctuate during the course of the day, general medical condition is not present. Post-traumatic stress disorder symptoms The patient is currently experiencing symptoms, relationship problems, but no flashbacks, no intrusive thoughts (more content not included)... Normal [employer] Tobacco Screening.on 023 Fall risk assessment a) No falls within the last year -[facility] Work Phone: Tobacco use status [facility] b) No -[facility] Work Phone: Tobacco Screening. Yes [facility] Work Phone: 36on 08-16-2022 36 Called patient and a ll questions answered [facility] 36 Patient is scheduled for right VATS pleurodesis on 08/23/22 Patient is calling in asking about how much pain she will be in after surgery and what pain medication will be called in for her? She does not have a PAT because she [place] so far away Please advise [phone] [facility] 36on 08-15-2022 36 Surg proc orders [place]. 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 Hendrickson told patient they could do all pre-op testing morning of surgery since they live so far away Please place surg proc orders Thank you [facility] Office Visiton 08-15-2022 Follow-up visit [id number] Yuliya Oliva 1950 F Date Provider Department Center 08/15/2022 [id number] WHITE [facility] None Family History Problem Relation Age of Onset Diabetes Maternal Grandmother Cancer Mother Hypertension Maternal Grandmother Diabetes Mother Family Status - Relation Status Age at Maternal Grandmother Mother Level of Service:17485 [place] OFFICE/OUTPATIENT ESTABLISHED LOW MDM 20-29 MIN Reason for Visit and Comments: Follow-up [[id number]] [facility] Progress Noteon 08-15-2022 Progress Note [facility] [address] [facility] [id number] Dept: [phone] Dept Loc: [phone] Patient was seen today via Telehealth by agreement and consent in light of the current COVID-19 pandemic. I used the following Telehealth technology: Audio and video capabilities Patient location: Home. This patient encounter is appropriate and reasonable under the circumstances given the patient's particular presentation at this time. The patient has been advised of the potential risks and limitations of this mode of treatment (including but not limited to the absence of in-person examination) and has agreed to be treated in a remote fashion in spite of them. Any and all of the patient's/patient's family's questions on this issue have been answered and I have made no promises or guarantees to the patient. The patient has also been advised to contact this office for worsening conditions or problems, and seek emergency medical treatment and/or call 911 if the patient deems either necessary. The patient stated that they are currently in the [facility]. If the patient is a minor, permission has been obtained by the parent or guardian for the patient to receive medical care at this visit. Visit type: Established Reason for Visit: discuss ct results re recurrent rt pleural effusion and surgical recommendation Assessment and plan 9 yr recurrent right pleural effusion w/ recent chest ct w/ moderate to large rt pleural effusion and lung compression. I reviewed the study ct images and discussed the findings w/ the Zofia's. I recommend a right VATS pleuradesis and possible pulmonary decortication. I reviewed the risks, benefits and alternatives of surgery. Consented. History of Present Illness Ricarda Oliva is a 71 y.o. female known to Dr. Hendrickson for right pleural effusion. Per note, pt was originally referred by Dr. Talavera for recurrent pleural effusions. The patient has battled pleural effusions since 2013. She had a CT chest 06/2019 that noted a right lower lobe pleural based density with a moderate sized pleural effusion, and a nodule in the periphery of the lingular region. She had a PET scan 11/2019 that was negative. She underwent a CT chest 12/04/21 that demonstrated a stable loculated right pleural effusion and round atelectasis. Pt then underwent thoracentesis on 03/11/22. Pathology was negative for malignant cells. Pt had follow up chest xray on 07/08/22 that showed a large right pleural effusion. She underwent another thoracentesis on 07/12/22 with 150 mL removed. A repeat chest xray was performed on 07/22/22 that showed right pleural effusion. Dr. Hendrickson Note 07/25/22 Assessment and plan Asymptomatic right pleural effusion s/p thoracentesis w/ pa/lat cxr w/ minimal effusion and likely scarring and possible minor atelectasis and loculated collections along the hemidiaphragm. I reviewed the cxr images. I discussed the further management of the cxr finding. I recommend chest ct w/ and without contrast to further evaluate the right lung. I will call the pt when the images are available for review. Pt then had CT chest completed on 07/31/22 that showed stable right lung findings. Pt is here now to discuss results. Pt has no complaints at this time. Past Medical History Past Medical History: Diagnosis Date Bipolar disorder, unspecified (HCC) Chronic back pain History of psychiatric hospitalization Hypothyroidism Lung nodule Mental disorder Nonrheumatic mitral (valve) prolapse FCO (obstructive sleep apnea) Restless leg syndrome Past Surgical History Past Surgical History: Procedure Laterality Date CATARACT EXTRACTION THORACENTESIS TOE SURGERY Family History Family History Problem Relation Name Age of Onset Diabetes Maternal Grandmother Cancer Mother Hypertension Maternal Grandmother Diabetes Mother Social History Social History Tobacco Use Smoking status: Former Smokeless tobacco: Never Substance Use Topics Alcohol use: Never Drug use: Never Allergies Allergies Allergen Reactions Gabapentin Meloxicam Leg swelling Codeine Nausea And Vomiting Other reaction(s): Nausea/vomiting, Severe nausea & vomiting Medications Current Outpatient Medications: divalproex (Depakote) 500 MG EC tablet, Take 1 tablet by mouth Nightly., Disp: , Rfl: levothyroxine (Synthroid, Levoxyl) 25 MCG tablet, TAKE 1 TABLET BY MOUTH IN THE MORNING on empty stomach, Disp: , Rfl: prednisoLONE acetate (Pred-Forte) 1 % ophthalmic suspension, put 1 (ONE) drop into left eye THREE TIMES DAILY FOR 7 DAYS then stop, Disp: , Rfl: triamcinolone (Kenalog) 0.1 % cream, Apply to any areas of rash or itching that you can see or feel on the body 1x a day as needed, Disp: , Rfl: Review of Systems Review of Systems All other systems reviewed and are negative. No results found for: WBC, HGB, PLT, NA, K, C (more content not included)... Normal [facility] 36on 08-09-2022 36 Patient called in as alek for the results of the CT scan done at [facility]. Images have been pushed thru to [facility]ax and report is on Dr Hendrickson's desk. She would like a call back to discuss. Normal [facility] Office Visiton 07-25-2022 Follow-up visit [id number] Yuliya Oliva 1950 F Date Provider Department Center 07/25/2022 [id number] HENDRICK[place] [facility] [place] Family History Problem Relation Age of Onset Diabetes Maternal Grandmother Cancer Mother Hypertension Maternal Grandmother Diabetes Mother Family Status - Relation Status Age at Maternal Grandmother Mother Level of Service:45076 [place] OFFICE/OUTPATIENT ESTABLISHED MOD MDM 30-39 MIN Reason for Visit and Comments: Results [95] - Discuss results Normal [facility] Progress Noteon 07-25-2022 Progress Note [facility] [address] [facility] [address] [facility] [address] Dept: [phone] Dept Loc: [phone] Visit type: Established Reason for Visit: right pleural effusion Assessment and plan Asymptomatic right pleural effusion s/p thoracentesis w/ pa/lat cxr w/ minimal effusion and likely scarring and possible minor atelectasis and loculated collections along the hemidiaphragm. I reviewed the cxr images. I discussed the further management of the cxr finding. I recommend chest ct w/ and without contrast to further evaluate the right lung. I will call the pt when the images are available for review. History of Present Illness Ricarda Oliva is a 71 y.o. female known to Dr. Hendrickson for recurrent pleural effusions. Per note, pt was originally referred by Dr. Talavera for recurrent pleural effusions. The patient has battled pleural effusions since 2013. She had a CT chest 06/2019 that noted a right lower lobe pleural based density with a moderate sized pleural effusion, and a nodule in the periphery of the lingular region. She had a PET scan 11/2019 that was negative. She underwent a CT chest 12/04/21 that demonstrated a stable loculated right pleural effusion and round atelectasis. Dr. Hendrickson Note 02/28/22 Assessment and Plan S/p pneumonia 2014 w/ resultant rt pleural effusion and lung entrapment. I reviewed the ct chest images and recommend initially a right thoracentesis and submission of the pleural effusion for cytology and culture. Also, a pa/cxr post tap. 2 weeks post tap another pa/lat cxr to eval for recurrence and lung expansion. I reviewed the risks, benefits and alternatives of a VATS rt sided pulmonary decortication and pleuradesis if required. Consented. Pt then underwent thoracentesis on 03/11/22. Pathology was negative for malignant cells. Pt had follow up chest xray on 07/08/22 that showed a large right pleural effusion. She underwent another thoracentesis on 07/12/22 with 150 mL removed. A repeat chest xray was performed on 07/22/22 that showed right pleural effusion. Pt is here now for an evaluation. Past Medical History Past Medical History: Diagnosis Date Bipolar disorder, unspecified (CMS/HCC) Chronic back pain History of psychiatric hospitalization Hypothyroidism Lung nodule Mental disorder Nonrheumatic mitral (valve) prolapse FCO (obstructive sleep apnea) Restless leg syndrome Past Surgical History Past Surgical History: Procedure Laterality Date CATARACT EXTRACTION THORACENTESIS TOE SURGERY Family History Family History Problem Relation Name Age of Onset Diabetes Maternal Grandmother Cancer Mother Hypertension Maternal Grandmother Diabetes Mother Social History Social History Tobacco Use Smoking status: Former Smokeless tobacco: Never Substance Use Topics Alcohol use: Never Drug use: Never Allergies Allergies Allergen Reactions Gabapentin Medications No current outpatient medications on file. Review of Systems Review of Systems Constitutional: Negative. HENT: Negative. Eyes: Negative. Respiratory: Positive for apnea (bipap at night) and shortness of breath (with exertion). Cardiovascular: Positive for leg swelling (occasional). Gastrointestinal: Negative. Endocrine: Negative. Genitourinary: Negative. Musculoskeletal: Positive for back pain (L3-L4). Skin: Negative. Allergic/Immunologic: Negative. Neurological: Positive for numbness (hands, occasionally; neuropathy in feet). Hematological: Negative. Psychiatric/Behavioral: Negative. Physical Exam Vitals: There were no vitals taken for this visit. Constitutional: General: Not in acute distress. Appearance: Normal appearance. Not toxic-appearing. Ear, nose, mouth: Bilateral external ear and nose normal. Nose: Nose normal. Mouth: Appearance normal, no bleeding, moist mucus membranes Eyes: General: No scleral icterus. No discharge from bilateral eyes Extraocular Movements: Extraocular movements intact. Pupils equal and reactive bilaterally Cardiovascular: Heart: Regular rhythm. Normal heart sounds. Vascular: No carotid bruit. Edema: edema in bilateral lower extremities Pulmonary: Effort: Pulmonary effort is normal. No respiratory distress. Breath sounds: Normal breath sounds. No wheezing. Chest wall: No tenderness. Abdominal: Appearance: Not distended Palpations: There is no abdominal tenderness, no guarding. Musculoskeletal: Bilateral upper and lower extremities: Normal range of motion, no deformity Head: Normocephalic and atraumatic. Neck: Normal range of motion and neck supple. No muscular tenderness. Lymphadenopathy: Cervical: No cervical adenopathy. Skin: General: Skin is warm and dry. Coloration: Skin is not jaundiced. Neurological: General: No focal deficit present. Cranial Nerves: No obvious cranial nerve deficit. Psychiatric: Mood and Aff (more content not included)... Normal [facility] Nursing Noteon 07-12-2022 Nursing Note Patient arrived to Ultrasound department for thoracentesis. History, medications and allergies reviewed. Nancy Cruz and Willi Barlow in to discuss procedure and informed consent obtained. Patient assisted to sitting on the edge of the bed. right upper back scanned, marked and prepped in sterile fashion. 150cc of clear red fluid removed. Bandaid applied. Patient tolerated procedure well. Homegoing instructions reviewed and patient discharged to home. Normal [facility] US GUIDED THORACENTESISon US GUIDED THORACENTESIS [id number] Exam Date/Time: 07/12/2022 12:55 Procedure: US GUIDED THORACENTESIS Ordering Provider: HENDRICKSON KEVIN Reason For Exam: PROCEDURE: Ultrasound-guided thoracentesis Procedural Personnel Attending physician(s): Elkin Mayes M.D. Advanced practice provider(s): Nancy Topete PA-C Indication: Pleural effusion Additional clinical history: None Complications: No immediate complications. IMPRESSION: Successful ultrasound-guided right thoracentesis with drainage of 150 mL of clear red fluid. Attending provider was present throughout the entirety of the procedure. PROCEDURE SUMMARY: - Limited thoracic ultrasound - Ultrasound-guided thoracentesis - Additional procedure(s): None PROCEDURE DETAILS: Pre-procedure Consent: Informed consent for the procedure including risks, benefits and alternatives was obtained and time-out was performed prior to the procedure. Preparation: The site was prepared and draped using maximal sterile barrier technique including cutaneous antisepsis. Anesthesia/sedation None Limited thoracic ultrasound Limited thoracic ultrasound was performed using a curved transducer. A safe window for thoracentesis was identified. Moderate to large pleural effusion was seen on the side of aspiration. The contralateral side was not investigated. Thoracentesis Local anesthesia was administered. Ultrasound was used to pick a safe access site. A permanent image was stored. The pleural space was accessed and fluid return confirmed position. The fluid was drained. Catheter placed: 5F Yueh Closure The catheter was removed. A sterile bandage was applied. Post-drainage hemithorax findings: Minimal effusion Additional Details Additional description of procedure: None Equipment details: None Specimens removed: Pleural fluid Estimated blood loss (mL): Less than 10 Report Dictated on Electronically Signed By: Elkin Mayes Electronically Signed Date/Time: 07/12/2022 1:27 PM 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 You were seen with your Cain throughout this appointment. We reviewed your most recent and past valproate levels, cbc and chemistries. The plan is to continue Depakote 500 mg daily at bedtime and obtain valproate, cbc and cmp as discussed. The FDA benefits and risks of Depakote including hepatic toxicity, platelet aggregation effects, drug interaction with lamotrigine and other medications, possible dyskinesias and toxic epidermal necrolysis (TEN) syndrome were all discussed. Please follow up in May of 2022 for an in person visit or virtually in August of 2022 and sooner virtually if needed as discussed today. For all urgent or emergency matters please call 911, go to urgent care or the emergency department of the nearest hospital. Chief Complaint Face - To - Face Visit. I am doing better. Adult Risk Screening Spiritual and Cultural: Patient Declined. Initial Fall Risk Screening: RICARDA has not fallen in the last 6 months. Her fall did not result in injury. RICARDA does not have a fear of falling. She does not need assistance with sitting, standing or walking. Does not need assistance walking in her home. She does not need assistance in an unfamiliar setting. The patient is not using an assistive device. Tobacco Screening: Has not used tobacco in the past 6 months. Has not tried to quit or thought about quitting tobacco. Domestic Violence Screen: Does not feel threatened or abused physically, emotionally or sexually. Do you feel UNSAFE? The patient feels safe in the home. Depression/Suicide Screening: During the past 2 weeks, the patient felt down, depressed or hopeless. During the past 2 weeks, the patient has not felt little interest or pleasure in doing things. She does not have a risk of suicide. She has not had thoughts of harming others. Single alcohol screening question: In the past year the patient has had 5 or more drinks (men) or 4 or more drinks (women)? None. time(s). Single substance abuse screening question: In the past year the patient has used a recreational drug or used a prescription drug for non-medical reasons? None. time(s). Procedure or Sedation Areas: patient has not had alcohol, recreational drugs, or prescription drugs for non-medical reasons this morning. Nutrition Screening: In the past month, there was not a day when I or anyone in my family went hungry because there was not enough food. Patient Education: The patient denies that they or the person with them has problems with hearing, speaking, seeing, moving around or learning The patient is comfortable filling out medical forms. History of Present Illness Ms. RICARDA OLIVA denies any suicidal or homicidal ideation or plans. The patient reports that she has substantial issues with marital issues and conflicts with her brother and sister. Review of Systems Depressive Symptoms: not depressed or irritable, no loss of interest, no change in appetite, no recent lb weight gain, no recent lb weight loss, no insomnia, no fatigue or loss of energy, not feeling worthless or guilty, normal concentration, ability to make decisions, no suicidal ideation, no guns or weapons in household. Manic Symptoms: mood is not irritable or elevated, self esteem is not grandiose or increased, no changes in need for sleep, not more talkative than usual, does not have flight of ideas or racing thoughts, no distractibility, no psychomotor agitation or increased goal-directed activity, no excessive involvement in pleasurable activities. Psychotic Symptoms: no hallucinations, no delusions, no disorganized speech, does not have disorganized behavior or catatonia, no negative symptoms. Anxiety Symptoms: no panic attacks, no concerns about future panic attacks, no worry about panic attack consequences, no change in behavior due to panic attacks, no excessive worry, no difficulty controlling worry, no increase in arousal, not easily fatigued due to worry, no difficulty concentrating due to worry, no irritability due to worry, no muscle tension due to worry, no sleep disturbances due to worry, no specific phobia, no social phobia, no obsessions, no compulsions, no exposure to traumatic event, no re-experiencing of traumatic event, no avoidance of stimuli and number of responsiveness, no restlessness / feeling on edge due to worry. Delirium/ Altered Mental Status Symptoms: no disturbances of consciousness, no diminished ability to focus, sustain, shift attention, no change in cognition or perceptual disturbances, symptoms do not fluctuate during the course of the day, general medical condition is not present. Post-traumatic stress disorder symptoms The patient is currently experiencing symptoms, relationship problems, but no flashback (more content not included)... Normal [facility] Complete Blood Count + Diffe amira 02-25-2022 Basophils/100 WBC (Bld) 1.3 % 0.0 - 2.0 [facility] [place] Work Phone: Erythrocyte distribution width (RBC) [Ratio] 14.0 % See Below [facility] [place] Work Phone: Comment on above: Reference Range: 11. 5 - 14.5 Hematocrit (Bld) [Volume fraction] 38.4 % See Below [facility] [place] Work Phone: Comment on above: Reference Range: 36. 0 - 46.0 Hemoglobin (Bld) [Mass/Vol] 12.7 g/dL See Below [facility] [address] Work Phone: Comment on above: Reference Range: 12. 0 - 16.0 Lymphocytes/100 WBC (Bld) 29.4 % See Below [facility] [place] Work Phone: Comment on above: Reference Range: 13. 0 - 44.0 MCHC (RBC) [Mass/Vol] 33.0 g/dL See Below [facility] [place] Work Phone: Comment on above: Reference Range: 32. 0 - 36.0 MCV (RBC) [Entitic vol] 97 fL 80 - 100 [facility] [facility] [place] Work Phone: Monocytes/100 WBC (Bld) 10.4 % 2.0 - 10.0 [facility] [facility] [place] Work Phone: Neutrophils/100 WBC (Bld) 55.2 % See Below [facility] [place] Work Phone: Comment on above: Reference Range: 40. 0 - 80.0 Platelets (Bld) [#/Vol] 232 10*3/uL 150 - 450 [facility] Work Phone: RBC (Bld) [#/Vol] 3.95 {x10E12/L} below low threshold See Below [facility] [place] Work Phone: Comment on above: Reference Range: 4.0 0 - 5.20 WBC (Bld) [#/Vol] 5.4 10*3/uL 4.4 - 11.3 [facility] [place] Work Phone: Complete Blood Count + Differential 0.10 {x10E9/L} See Below [facility] [place] Work Phone: Comment on above: Reference Range: 0.0 0 - 0.10 Complete Blood Count + Differential 0.20 {x10E9/L} See Below [facility] [place] Work Phone: Comment on above: Reference Range: 0.0 0 - 0.70 Complete Blood Count + Differential 0.60 {x10E9/L} See Below [facility] Work Phone: Comment on above: Reference Range: 0.1 0 - 1.00 Complete Blood Count + Differential 1.60 {x10E9/L} See Below [facility] Work Phone: Comment on above: Reference Range: 1.2 0 - 4.80 Complete Blood Count + Differential 3.00 {x10E9/L} See Below [facility] Work Phone: Comment on above: Reference Range: 1.2 0 - 7.70 Percent differential counts (%) should be interpreted in the context of the absolute cell counts (cells/L). Complete Blood Count + Differential 3.7 % 0.0 - 6.0 [facility] Work Phone: Complete Blood Count + Differential 0.1 {/100_WBC} -[facility] Work Phone: Laboratory - Chemistry and C hemistry - challengeon 02-25-2022 Albumin BCP dye [Mass/Vol] 4.1 g/dL 3.4 - 5.0 [facility] Work Phone: ALP [Catalytic activity/Vol] 59 U/L 33 - 136 [facility] Work Phone: ALT With P-5'-P [Catalytic activity/Vol] 14 U/L 7 - 45 [facility] Work Phone: Comment on above: Patients treated wit h Sulfasalazine may generate falsely decreased results for ALT. Anion gap [Moles/Vol] 9 mmol/L below low threshold 10 - 20 [facility] Work Phone: AST With P-5'-P [Catalytic activity/Vol] 16 U/L 9 - 39 [facility] Work Phone: Bilirubin [Mass/Vol] 0.4 mg/dL 0.0 - 1.2 [facility] Work Phone: [phone] Calcium [Mass/Vol] 9.0 mg/dL 8.6 - 10.3 [facility] Work Phone: [phone] Chloride [Moles/Vol] 106 mmol/L 98 - 107 [facility] Work Phone: [phone] CO2 [Moles/Vol] 29 mmol/L 21 - 32 [facility] Work Phone: [phone] Creatinine [Mass/Vol] 0.91 mg/dL See Below [facility] Work Phone: [phone] Comment on above: Reference Range: 0.5 0 - 1.05 Glucose [Mass/Vol] 87 mg/dL 74 - 99 [facility] Work Phone: [phone] Potassium [Moles/Vol] 4.8 mmol/L 3.5 - 5.3 [facility] Work Phone: Protein [Mass/Vol] 6.7 g/dL 6.4 - 8.2 [facility] Work Phone: [phone] Sodium [Moles/Vol] 139 mmol/L 136 - 145 [facility] Work Phone: Urea nitrogen [Mass/Vol] 21 mg/dL 6 - 23 [facility] Work Phone: No Panel Informationon 02-25 68 {mL/min/1.73m2} >90 [facility] Work Phone: [phone] Comment on above: CALCULATIONS OF CHEPE MATED GFR ARE PERFORMED USING THE 2020 CKD-EPI STUDY REFIT EQUATION WITHOUT THE RACE VARIABLE FOR THE IDMS-TRACEABLE CREATININE METHODS.https://jasn.asnjournals.org/content// N.0591661595 Valproic Acid Level, Serumon 02-25-2022 Valproate [Mass/Vol] 61 ug/mL 50 - 100 [facility] [address] [place] Work Phone: Psychiatry Adulton 2 Psychiatry Adult Diagnoses/Problems Assessed History of bipolar disorder (V11.1) (Z86.59) Bipolar disorder with depression (296.50) (F31.9) Patient Discussion/Summary 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 You were seen with your Cain throughout this appointment. We reviewed your most recent and past valproate levels, cbc and chemistries. The plan is to continue Depakote 500 mg daily at bedtime and obtain valproate, cbc and cmp as discussed. The FDA benefits and risks of Depakote including hepatic toxicity, platelet aggregation effects, drug interaction with lamotrigine and other medications, possible dyskinesias and toxic epidermal necrolysis (TEN) syndrome were all discussed. Please follow up in May of 2022 for an in person visit or sooner virtually if needed as discussed today. For all urgent or emergency matters please call 911, go to urgent care or the emergency department of the nearest hospital. Chief Complaint Face - To - Face Visit. A telephone visit (audio only) between the patient (at the originating site) and the provider (at the distant site) was utilized to provide this telehealth service. Verbal consent was requested and obtained from RICARDA OLIVA on this date, 10/16/2021 02:00 PM , for a telehealth visit. I am doing better. An interactive audio and video telecommunication system which permits real time communications between the patient (at the originating site) and provider (at the distant site) was utilized to provide this telehealth service. Verbal consent was requested and obtained from RICARDA OLIVA on this date, 10/16/2021 02:00 PM , for a telehealth visit. I have been doing better. Adult Risk Screening Spiritual and Cultural: Patient Declined. Initial Fall Risk Screening: RICARDA has not fallen in the last 6 months. Her fall did not result in injury. RICARDA does not have a fear of falling. She does not need assistance with sitting, standing or walking. Does not need assistance walking in her home. She does not need assistance in an unfamiliar setting. The patient is not using an assistive device. Tobacco Screening: Has not used tobacco in the past 6 months. Has not tried to quit or thought about quitting tobacco. Domestic Violence Screen: Does not feel threatened or abused physically, emotionally or sexually. Do you feel UNSAFE? The patient feels safe in the home. Depression/Suicide Screening: During the past 2 weeks, the patient felt down, depressed or hopeless. During the past 2 weeks, the patient has not felt little interest or pleasure in doing things. She does not have a risk of suicide. She has not had thoughts of harming others. Single alcohol screening question: In the past year the patient has had 5 or more drinks (men) or 4 or more drinks (women)? None. time(s). Single substance abuse screening question: In the past year the patient has used a recreational drug or used a prescription drug for non-medical reasons? None. time(s). Procedure or Sedation Areas: patient has not had alcohol, recreational drugs, or prescription drugs for non-medical reasons this morning. Nutrition Screening: In the past month, there was not a day when I or anyone in my family went hungry because there was not enough food. Patient Education: The patient denies that they or the person with them has problems with hearing, speaking, seeing, moving around or learning The patient is comfortable filling out medical forms. History of Present Illness Ms. RICARDA OLIVA denies any suicidal or homicidal ideation or plans. The patient reports that she has substantial issues with marital issues and conflicts with her brother and sister. Review of Systems Depressive Symptoms: not depressed or irritable, no loss of interest, no change in appetite, no recent lb weight gain, no recent lb weight loss, no insomnia, no fatigue or loss of energy, not feeling worthless or guilty, normal concentration, ability to make decisions, no suicidal ideation, no guns or weapons in household. Manic Symptoms: mood is not irritable or elevated, self esteem is not grandiose or increased, no changes in need for sleep, not more talkative than usual, does not have flight of ideas or racing thoughts, no distractibility, no psychomotor agitation or increased goal-directed activity, no excessive involvement in pleasurable activities. Psychotic Symptoms: no hallucinations, no delusions, no disorganized speech, does not have disorganized behavior or catatonia, no negative symptoms. Anxiety Symptoms: no panic attacks, no concerns about future panic attacks, no worry about panic attack consequences, no change in behavior due to panic attacks, no excessive worry, no difficulty controlling worry, no increase in arousal, not easily fatigued due to worry, no difficulty concentrating due to worry, no irritability due to worry, no muscle tension due to worry, no sleep disturbances due to worry, no specific phobia, n (more content not included)... Normal [facility] Tobacco Screening.on 022 Fall risk assessment a) No falls within the last year [facility] Work Phone: Tobacco use status [facility]PHS b) No [facility] Work Phone: Complete Blood Count + Diffe amira 07-31-2021 Basophils/100 WBC (Bld) 1.1 % 0.0 - 2.0 -[facility] Work Phone: Erythrocyte distribution width (RBC) [Ratio] 15.2 % above high threshold See Below [facility] Work Phone: Comment on above: Reference Range: 11. 5 - 14.5 Hematocrit (Bld) [Volume fraction] 39.5 % See Below [facility] Work Phone: Comment on above: Reference Range: 36. 0 - 46.0 Hemoglobin (Bld) [Mass/Vol] 12.8 g/dL See Below [facility] Work Phone: Comment on above: Reference Range: 12. 0 - 16.0 Lymphocytes/100 WBC (Bld) 25.1 % See Below [facility] Work Phone: Comment on above: Reference Range: 13. 0 - 44.0 MCHC (RBC) [Mass/Vol] 32.5 g/dL See Below [facility] Work Phone: Comment on above: Reference Range: 32. 0 - 36.0 MCV (RBC) [Entitic vol] 98 fL 80 - 100 -[facility] Work Phone: Monocytes/100 WBC (Bld) 9.1 % 2.0 - 10.0 [facility] Work Phone: Neutrophils/100 WBC (Bld) 60.5 % See Below [facility] Work Phone: Comment on above: Reference Range: 40. 0 - 80.0 Platelets (Bld) [#/Vol] 303 10*3/uL 150 - 450 [facility] Work Phone: RBC (Bld) [#/Vol] 4.02 {x10E12/L} See Below [facility] Work Phone: Comment on above: Reference Range: 4.0 0 - 5.20 WBC (Bld) [#/Vol] 7.1 10*3/uL 4.4 - 11.3 [facility] Work Phone: Complete Blood Count + Differential 0.10 {x10E9/L} See Below [facility] Work Phone: Comment on above: Reference Range: 0.0 0 - 0.10 Complete Blood Count + Differential 0.30 {x10E9/L} See Below [facility] Work Phone: Comment on above: Reference Range: 0.0 0 - 0.70 Complete Blood Count + Differential 0.60 {x10E9/L} See Below [facility] Work Phone: Comment on above: Reference Range: 0.1 0 - 1.00 Complete Blood Count + Differential 1.80 {x10E9/L} See Below [facility] Work Phone: Comment on above: Reference Range: 1.2 0 - 4.80 Complete Blood Count + Differential 4.30 {x10E9/L} See Below [facility] Work Phone: Comment on above: Reference Range: 1.2 0 - 7.70 Percent differential counts (%) should be interpreted in the context of the absolute cell counts (cells/L). Complete Blood Count + Differential 4.2 % 0.0 - 6.0 [facility] Work Phone: Complete Blood Count + Differential 0.1 {/100_WBC} [facility] Work Phone: [phone] Laboratory - Chemistry and C hemistry - challengeon 07-31-2021 Albumin BCP dye [Mass/Vol] 3.9 g/dL 3.4 - 5.0 [facility] Work Phone: [phone] ALP [Catalytic activity/Vol] 63 U/L 33 - 136 [facility] Work Phone: ALT With P-5'-P [Catalytic activity/Vol] 16 U/L 7 - 45 [facility] Work Phone: [phone] Comment on above: Patients treated wit h Sulfasalazine may generate falsely decreased results for ALT. Anion gap [Moles/Vol] 9 mmol/L below low threshold 10 - 20 [facility] Work Phone: [phone] AST With P-5'-P [Catalytic activity/Vol] 16 U/L 9 - 39 [facility] Work Phone: [phone] Bilirubin [Mass/Vol] 0.4 mg/dL 0.0 - 1.2 [facility] -[address] Work Phone: [phone] Calcium [Mass/Vol] 9.3 mg/dL 8.6 - 10.3 [facility] -[address] Work Phone: [phone] Chloride [Moles/Vol] 105 mmol/L 98 - 107 [facility] Work Phone: [phone] CO2 [Moles/Vol] 32 mmol/L 21 - 32 [facility] -[address] Work Phone: Creatinine [Mass/Vol] 0.91 mg/dL See Below [facility] Work Phone: Comment on above: Reference Range: 0.5 0 - 1.05 Glucose [Mass/Vol] 69 mg/dL below low threshold 74 - 99 [facility] Work Phone: Potassium [Moles/Vol] 4.2 mmol/L 3.5 - 5.3 [facility] Work Phone: Protein [Mass/Vol] 6.7 g/dL 6.4 - 8.2 [facility] Work Phone: Sodium [Moles/Vol] 142 mmol/L 136 - 145 [facility] Work Phone: Urea nitrogen [Mass/Vol] 24 mg/dL above high threshold 6 - 23 [facility] Work Phone: No Panel Informationon 07-31 >60 >60 [facility] Work Phone: Comment on above: CALCULATIONS OF CHEPE MATED GFR ARE PERFORMED USING THE MDRD STUDY EQUATION FOR THE IDMS-TRACEABLE CREATININE METHODS. CLIN CHEM 2007;53:766-72 Valproic Acid Level, Serumon 07-31-2021 Valproate [Mass/Vol] 73 ug/mL 50 - 100 [facility] Work Phone: CBC AND DIFFERENTIALon 11-14 Basophils (Bld) [#/Vol] 0.10 10*3/uL Normal 0.00 - 0.10 [facility] Comment on above: Performed By: #### C BCDF #### [address] [address] Basophils/100 WBC (Bld) 1.0 % Normal 0.0 - 2.0 [facility] Comment on above: Performed By: #### C BCDF #### [address] [address] Eosinophils (Bld) [#/Vol] 0.20 10*3/uL Normal 0.00 - 0.70 [facility] Comment on above: Performed By: #### C BCDF #### [address] [address] Eosinophils/100 WBC (Bld) 3.2 % Normal 0.0 - 6.0 [facility] Comment on above: Performed By: #### C BCDF #### [address] [address] Erythrocyte distribution width (RBC) [Ratio] 14.3 % Normal 11.5 - 14.5 [facility] Comment on above: Performed By: #### C BCDF #### [address] [address] Hematocrit (Bld) [Volume fraction] 37.9 % Normal 36.0 - 46.0 [facility] Comment on above: Performed By: #### C BCDF #### [address] [address] Hemoglobin (Bld) [Mass/Vol] 12.4 g/dL Normal 12.0 - 16.0 [facility] Comment on above: Performed By: #### C BCDF #### [place] [id number] Lymphocytes (Bld) [#/Vol] 1.90 10*3/uL Normal 1.20 - 4.80 [facility] Comment on above: Performed By: #### C BCDF #### [address] [address] Lymphocytes/100 WBC (Bld) 32.0 % Normal 13.0 - 44.0 [facility] Comment on above: Performed By: #### C BCDF #### [address] [address] MCHC (RBC) [Mass/Vol] 32.6 g/dL Normal 32.0 - 36.0 [facility] Comment on above: Performed By: #### C BCDF #### [address] [address] MCV (RBC) [Entitic vol] 97 fL Normal 80 - 100 [facility] Comment on above: Performed By: #### C BCDF #### [address] [address] Monocytes (Bld) [#/Vol] 0.60 10*3/uL Normal 0.10 - 1.00 [facility] Comment on above: Performed By: #### C BCDF #### [address] [address] Monocytes/100 WBC (Bld) 9.7 % Normal 2.0 - 10.0 [facility] Comment on above: Performed By: #### C BCDF #### [address] [address] Neutrophils (Bld) [#/Vol] 3.10 10*3/uL Normal 1.20 - 7.70 [facility] Comment on above: Result Comment: Perc ent differential counts (%) should be interpreted in the context of the absolute cell counts (cells/L). Performed By: #### C BCDF #### [address] [address] Neutrophils/100 WBC (Bld) 54.1 % Normal 40.0 - 80.0 [facility] Comment on above: Performed By: #### C BCDF #### [address] [address] Nucleated RBC/100 WBC (Bld) [Ratio] 0.2 /100 WBC Normal [facility] Comment on above: Performed By: #### C BCDF #### [address] [address] Platelets (Bld) [#/Vol] 249 10*3/uL Normal 150 - 450 [facility] Comment on above: Performed By: #### C BCDF #### [address] [address] RBC (Bld) [#/Vol] 3.92 x10E12/L Low 4.00 - 5.20 [facility] Comment on above: Performed By: #### C BCDF #### [address] [address] WBC (Bld) [#/Vol] 5.8 10*3/uL Normal 4.4 - 11.3 [facility] Comment on above: Performed By: #### C BCDF #### [address] [address] COMPREHENSIVE PANELon 2020 Albumin [Mass/Vol] 4.0 g/dL Normal 3.4 - 5.0 [facility] Comment on above: Performed By: #### C MP #### [address] [address] ALP [Catalytic activity/Vol] 60 U/L Normal 33 - 136 [facility] Comment on above: Performed By: #### C MP #### [address] [address] ALT [Catalytic activity/Vol] 17 U/L Normal 7 - 45 [facility] Comment on above: Result Comment: Emlida ents treated with Sulfasalazine may generate falsely decreased results for ALT. Performed By: #### C MP #### [address] [address] Anion gap [Moles/Vol] 10 mmol/L Normal 10 - 20 [facility] Comment on above: Performed By: #### C MP #### [address] [address] AST [Catalytic activity/Vol] 17 U/L Normal 9 - 39 [facility] Comment on above: Performed By: #### C MP #### [address] [address] Bilirubin [Mass/Vol] 0.4 mg/dL Normal 0.0 - 1.2 [facility] Comment on above: Performed By: #### C MP #### [address] [address] Calcium [Mass/Vol] 9.4 mg/dL Normal 8.6 - 10.3 [facility] Comment on above: Performed By: #### C MP #### [address] [address] Chloride [Moles/Vol] 104 mmol/L Normal 98 - 107 [facility] Comment on above: Performed By: #### C MP #### [address] [address] Creatinine [Mass/Vol] 1.02 mg/dL Normal 0.50 - 1.05 [facility] Comment on above: Performed By: #### C MP #### [address] [address] GFR- AM. 65 mL/min/1.73m2 Normal >60 [facility] Comment on above: Result Comment: CALC ULATIONS OF ESTIMATED GFR ARE PERFORMED USING THE MDRD STUDY EQUATION FOR THE IDMS-TRACEABLE CREATININE METHODS. CLIN CHEM 2007;53:766-72 Performed By: #### C MP #### [address] [address] GFR-NON AM. 54 mL/min/1.73m2 Abnormal >60 [facility] Comment on above: Performed By: #### C MP #### [address] [address] Glucose [Mass/Vol] 92 mg/dL Normal 74 - 99 [facility] Comment on above: Performed By: #### C MP #### [address] [address] HCO3 (Bld) [Moles/Vol] 28 mmol/L Normal 21 - 32 [facility] Comment on above: Performed By: #### C MP #### [address] [address] Potassium [Moles/Vol] 4.3 mmol/L Normal 3.5 - 5.3 [facility] Comment on above: Performed By: #### C MP #### [address] [address] Protein [Mass/Vol] 6.8 g/dL Normal 6.4 - 8.2 [facility] Comment on above: Performed By: #### C MP #### [address] [address] Sodium [Moles/Vol] 138 mmol/L Normal 136 - 145 [facility] Comment on above: Performed By: #### C MP #### [address] [address] Urea nitrogen [Mass/Vol] 23 mg/dL Normal 6 - 23 [facility] Comment on above: Performed By: #### C MP #### [address] [address] VALPROIC ACIDon 11-14-2020 VALPROIC ACID 54 ug/mL Normal 50 - 100 [facility] Comment on above: Performed By: #### V ALPR #### [address] [address] CBC AND DIFFERENTIALon 08-15 Basophils (Bld) [#/Vol] 0.10 10*3/uL Normal 0.00 - 0.10 [facility] Comment on above: Performed By: #### C BCDF #### [address] [address] Basophils/100 WBC (Bld) 1.0 % Normal 0.0 - 2.0 [facility] Comment on above: Performed By: #### C BCDF #### [address] [address] Eosinophils (Bld) [#/Vol] 0.30 10*3/uL Normal 0.00 - 0.70 [facility] Comment on above: Performed By: #### C BCDF #### [address] [address] Eosinophils/100 WBC (Bld) 5.4 % Normal 0.0 - 6.0 [facility] Comment on above: Performed By: #### C BCDF #### [address] [address] Erythrocyte distribution width (RBC) [Ratio] 13.9 % Normal 11.5 - 14.5 [facility] Comment on above: Performed By: #### C BCDF #### [address] [address] Hematocrit (Bld) [Volume fraction] 38.0 % Normal 36.0 - 46.0 [facility] Comment on above: Performed By: #### C BCDF #### [address] [address] Hemoglobin (Bld) [Mass/Vol] 12.5 g/dL Normal 12.0 - 16.0 [facility] Comment on above: Performed By: #### C BCDF #### [address] [address] Lymphocytes (Bld) [#/Vol] 1.80 10*3/uL Normal 1.20 - 4.80 [facility] Comment on above: Performed By: #### C BCDF #### [address] [address] Lymphocytes/100 WBC (Bld) 31.2 % Normal 13.0 - 44.0 [facility] Comment on above: Performed By: #### C BCDF #### [address] [address] MCHC (RBC) [Mass/Vol] 32.9 g/dL Normal 32.0 - 36.0 [facility] Comment on above: Performed By: #### C BCDF #### [address] [address] MCV (RBC) [Entitic vol] 96 fL Normal 80 - 100 [facility] Comment on above: Performed By: #### C BCDF #### [address] [address] Monocytes (Bld) [#/Vol] 0.70 10*3/uL Normal 0.10 - 1.00 [facility] Comment on above: Performed By: #### C BCDF #### [address] [address] Monocytes/100 WBC (Bld) 11.6 % Normal 2.0 - 10.0 [facility] Comment on above: Performed By: #### C BCDF #### [address] [address] Neutrophils (Bld) [#/Vol] 2.90 10*3/uL Normal 1.20 - 7.70 [facility] Comment on above: Result Comment: Perc ent differential counts (%) should be interpreted in the context of the absolute cell counts (cells/L). Performed By: #### C BCDF #### [address] [address] Neutrophils/100 WBC (Bld) 50.8 % Normal 40.0 - 80.0 [facility] Comment on above: Performed By: #### C BCDF #### [address] [address] Nucleated RBC/100 WBC (Bld) [Ratio] 0.1 /100 WBC Normal [facility] Comment on above: Performed By: #### C BCDF #### [address] [address] Platelets (Bld) [#/Vol] 256 10*3/uL Normal 150 - 450 [facility] Comment on above: Performed By: #### C BCDF #### [address] [address] RBC (Bld) [#/Vol] 3.94 x10E12/L Low 4.00 - 5.20 [facility] Comment on above: Performed By: #### C BCDF #### [address] [address] WBC (Bld) [#/Vol] 5.7 10*3/uL Normal 4.4 - 11.3 [facility] Comment on above: Performed By: #### C BCDF #### [address] [address] COMPREHENSIVE PANELon 2020 Albumin [Mass/Vol] 4.0 g/dL Normal 3.4 - 5.0 [facility] Comment on above: Performed By: #### C MP #### [address] [address] ALP [Catalytic activity/Vol] 57 U/L Normal 33 - 136 [facility] Comment on above: Performed By: #### C MP #### [address] [address] ALT [Catalytic activity/Vol] 14 U/L Normal 7 - 45 [facility] Comment on above: Result Comment: Melida ents treated with Sulfasalazine may generate falsely decreased results for ALT. Performed By: #### C MP #### [address] [address] Anion gap [Moles/Vol] 9 mmol/L Low 10 - 20 [facility] Comment on above: Performed By: #### C MP #### [address] [address] AST [Catalytic activity/Vol] 12 U/L Normal 9 - 39 [facility] Comment on above: Performed By: #### C MP #### [address] [address] Bilirubin [Mass/Vol] 0.4 mg/dL Normal 0.0 - 1.2 [facility] Comment on above: Performed By: #### C MP #### [address] [address] Calcium [Mass/Vol] 8.9 mg/dL Normal 8.6 - 10.3 [facility] Comment on above: Performed By: #### C MP #### [address] [address] Chloride [Moles/Vol] 106 mmol/L Normal 98 - 107 [facility] Comment on above: Performed By: #### C MP #### [address] [address] Creatinine [Mass/Vol] 0.87 mg/dL Normal 0.50 - 1.05 [facility] Comment on above: Performed By: #### C MP #### [address] [address] GFR- AM. >60 Normal >60 [facility] Comment on above: Result Comment: CALC ULATIONS OF ESTIMATED GFR ARE PERFORMED USING THE MDRD STUDY EQUATION FOR THE IDMS-TRACEABLE CREATININE METHODS. CLIN CHEM 2007;53:766-72 Performed By: #### C MP #### [address] [address] GFR-NON AM. >60 Normal >60 [facility] Comment on above: Performed By: #### C MP #### [address] [address] Glucose [Mass/Vol] 80 mg/dL Normal 74 - 99 [facility] Comment on above: Performed By: #### C MP #### [address] [address] HCO3 (Bld) [Moles/Vol] 29 mmol/L Normal 21 - 32 [facility] Comment on above: Performed By: #### C MP #### [address] [address] Potassium [Moles/Vol] 4.3 mmol/L Normal 3.5 - 5.3 [facility] Comment on above: Performed By: #### C MP #### [address] [address] Protein [Mass/Vol] 6.7 g/dL Normal 6.4 - 8.2 [facility] Comment on above: Performed By: #### C MP #### [place] [address] Sodium [Moles/Vol] 140 mmol/L Normal 136 - 145 [facility] Comment on above: Performed By: #### C MP #### [place] [address] Urea nitrogen [Mass/Vol] 28 mg/dL High 6 - 23 [facility] Comment on above: Performed By: #### C MP #### [address] [address] VALPROIC ACIDon 08-15-2020 VALPROIC ACID 46 ug/mL Low 50 - 100 [facility] Comment on above: Performed By: #### V ALPR #### [address] [address] VALPROIC ACIDon 02-29-2020 VALPROIC ACID 46 ug/mL Low 50 - 100 [facility] Comment on above: Performed By: #### V ALPR #### [address] [address] .Auto Diffon 02-14-2020 Ammonia (P) [Mass/Vol] 0.50 10 3/mcL Normal 0.15-1.00 [facility] ([place]) Comment on above: Performed By: #### C BC, ADIFF, ANEU, FE, TSH, LIPID, CMP, GFR, IBC #### [facility] [address] [place] [address] Basophils (Bld) [#/Vol] 0.00 10 3/mcL Normal 0.00-0.19 [facility] ([place]) Comment on above: Performed By: #### C BC, ADIFF, ANEU, FE, TSH, LIPID, CMP, GFR, IBC #### [address] [address] Basophils/100 WBC (Bld) 0.9 % Normal 0.0-2.5 [facility] ([place]) Comment on above: Performed By: #### C BC, ADIFF, ANEU, FE, TSH, LIPID, CMP, GFR, IBC #### [address] [address] Eosinophils (Bld) [#/Vol] 0.20 10 3/mcL Normal 0.00-0.40 [facility] ([place]) Comment on above: Performed By: #### C BC, ADIFF, ANEU, FE, TSH, LIPID, CMP, GFR, IBC #### [address] [address] Eosinophils/100 WBC (Bld) 3.7 % Normal 0.0-7.0 [facility] ([place]) Comment on above: Performed By: #### C BC, ADIFF, ANEU, FE, TSH, LIPID, CMP, GFR, IBC #### [address] [address] Lymphocytes (Bld) [#/Vol] 1.40 10 3/mcL Normal 0.77-3.85 [facility] ([place]) Comment on above: Performed By: #### C BC, ADIFF, ANEU, FE, TSH, LIPID, CMP, GFR, IBC #### [address] [address] Lymphocytes/100 WBC (Bld) 27.5 % Normal 10.0-50.0 [facility] ([place]) Comment on above: Performed By: #### C BC, ADIFF, ANEU, FE, TSH, LIPID, CMP, GFR, IBC #### [address] [address] Monocytes/100 WBC (Bld) 10.7 % Normal 1.7-13.0 [facility] [facility] ([place]) Comment on above: Performed By: #### C BC, ADIFF, ANEU, FE, TSH, LIPID, CMP, GFR, IBC #### [address] [address] Neutrophils/100 WBC (Bld) 57.2 % Normal 37.0-80.0 [facility] ([place]) Comment on above: Performed By: #### C BC, ADIFF, ANEU, FE, TSH, LIPID, CMP, GFR, IBC #### [address] [address] .GFRon 02-14-2020 GFR 60 ml/min/1.73sqm Normal [facility] ([place]) Comment on above: Result Comment: GFR Population mean for , Non- Americans Ages 20-29 = 116 mL/min/1.73 sq.m. Ages 30-39 = 107 mL/min/1.73 sq.m. Ages 40-49 = 99 mL/min/1.73 sq.m. Ages 50-59 = 93 mL/min/1.73 sq.m. Ages 60-69 = 85 mL/min/1.73 sq.m. Ages 70+ = 75 mL/min/1.73 sq.m. Chronic Kidney Disease: Less than 60 mL/min/1.73 square meters End Stage Renal Disease: Less than 15 mL/min/1.73 square meters Performed By: #### G ALBA, B12, IFSABINO, SPE #### [address] [address] #### VITB6, B1WB #### [address] [address] GFR Non- 49 ml/min/1.73sqm Normal [facility] ([place]) Comment on above: Result Comment: GFR Population mean for , Non- Americans Ages 20-29 = 116 mL/min/1.73 sq.m. Ages 30-39 = 107 mL/min/1.73 sq.m. Ages 40-49 = 99 mL/min/1.73 sq.m. Ages 50-59 = 93 mL/min/1.73 sq.m. Ages 60-69 = 85 mL/min/1.73 sq.m. Ages 70+ = 75 mL/min/1.73 sq.m. Chronic Kidney Disease: Less than 60 mL/min/1.73 square meters End Stage Renal Disease: Less than 15 mL/min/1.73 square meters Performed By: #### G ALBA, B12, IFES, SPE #### [place] [address] #### VITB6, B1WB #### [address] [address] .NEUABSon 02-14-2020 Neutrophils (Bld) [#/Vol] 2.90 10 3/mcL Normal 2.85-6.16 [facility] ([place]) Comment on above: Performed By: #### C BC, ADIFF, ANEU, FE, TSH, LIPID, CMP, GFR, IBC #### [address] [address] CBCon 02-14-2020 Erythrocyte distribution width (RBC) [Ratio] 14.0 % Normal 11.5-14.5 [facility] ([place]) Comment on above: Performed By: #### C BC, ADIFF, ANEU, FE, TSH, LIPID, CMP, GFR, IBC #### [address] [address] Hematocrit (Bld) [Volume fraction] 37.0 % Normal 37.0-47.0 [facility] ([place]) Comment on above: Performed By: #### C BC, ADIFF, ANEU, FE, TSH, LIPID, CMP, GFR, IBC #### [address] [address] Hemoglobin (Bld) [Mass/Vol] 12.3 G/dL Normal 12.0-16.0 [facility] ([place]) Comment on above: Performed By: #### C BC, ADIFF, ANEU, FE, TSH, LIPID, CMP, GFR, IBC #### [address] [address] MCH (RBC) [Entitic mass] 32.0 pg High 27.0-31.2 [facility] ([place]) Comment on above: Performed By: #### C BC, ADIFF, ANEU, FE, TSH, LIPID, CMP, GFR, IBC #### [address] [address] MCHC (RBC) [Mass/Vol] 33.3 G/dL Normal 33.0-37.0 [facility] ([place]) Comment on above: Performed By: #### C BC, ADIFF, ANEU, FE, TSH, LIPID, CMP, GFR, IBC #### [address] [address] MCV (RBC) [Entitic vol] 96.3 fL High 80.0-94.0 [facility] ([place]) Comment on above: Performed By: #### C BC, ADIFF, ANEU, FE, TSH, LIPID, CMP, GFR, IBC #### [address] [address] Platelet mean volume (Bld) [Entitic vol] 9.0 fL Normal 7.4-10.4 [facility] ([place]) Comment on above: Performed By: #### C BC, ADIFF, ANEU, FE, TSH, LIPID, CMP, GFR, IBC #### [address] [address] Platelets (Bld) [#/Vol] 253 10 3/mcL Normal 130-400 [facility] ([place]) Comment on above: Performed By: #### C BC, ADIFF, ANEU, FE, TSH, LIPID, CMP, GFR, IBC #### [address] [address] RBC (Bld) [#/Vol] 3.84 10 6/mcL Low 4.20-5.40 [facility] ([place]) Comment on above: Performed By: #### C BC, ADIFF, ANEU, FE, TSH, LIPID, CMP, GFR, IBC #### [address] [address] WBC (Bld) [#/Vol] 5.10 10 3/mcL Normal 4.60-10.80 [facility] ([place]) Comment on above: Performed By: #### C BC, ADIFF, ANEU, FE, TSH, LIPID, CMP, GFR, IBC #### [address] [address] CMPon 02-14-2020 Albumin [Mass/Vol] 3.4 G/dL Normal 3.4-4.8 [facility] ([place]) Comment on above: Performed By: #### Sheila WILLIS, B12, IFES, SPE #### [place] [address] #### VITB6, B1WB #### [address] [address] Albumin/Globulin [Mass ratio] 1.0 {ratio} Low 1.1-2.5 [facility] ([place]) Comment on above: Performed By: #### Sheila WILLIS, B12, IFES, SPE #### [place] [address] #### VITB6, B1WB #### [address] [address] ALP [Catalytic activity/Vol] 74 U/L Normal 40-135 [facility] ([place]) Comment on above: Performed By: #### Sheila WILLIS, B12, IFES, SPE #### [place] [address] #### VITB6, B1WB #### [address] [address] ALT [Catalytic activity/Vol] 24 U/L Normal 10-35 [facility] ([place]) Comment on above: Performed By: #### Sheila WILLIS, B12, IFES, SPE #### [place] [address] #### VITB6, B1WB #### [address] [address] AST [Catalytic activity/Vol] 16 U/L Normal 10-40 [facility] ([place]) Comment on above: Performed By: #### Sheila WILLIS, B12, IFES, SPE #### [place] [address] #### VITB6, B1WB #### [address] [address] Bili Total 0.4 mg/dL Normal 0.2-1.0 [facility] ([place]) Comment on above: Result Comment: Use of this assay is not recommended for patients undergoing treatment with eltrombopag due to the potential for falsely elevated results. Performed By: #### Anastacio SANABRIA, IFES, SPE #### [place] [address] #### VITB6, B1WB #### [address] [address] Calcium [Mass/Vol] 9.2 mg/dL Normal 8.4-10.2 [facility] ([place] Comment on above: Performed By: #### Anastacio SANABRIA, IFSABINO, SPE #### [place] [address] #### VITB6, B1WB #### [address] [address] Chloride [Moles/Vol] 106 mmol/L Normal 98-107 [facility] ([place]) Comment on above: Performed By: #### Anastacio SANABRIA, IFES, SPE #### [place] [address] #### VITB6, B1WB #### [address] [address] CO2 [Moles/Vol] 32 mmol/L High 23-31 [facility] ([place]) Comment on above: Performed By: #### Sheila WILLIS B12, IFES, SPE #### [place] [address] #### VITB6, B1WB #### [address] [address] Creatinine [Mass/Vol] 1.10 mg/dL High 0.55-1.02 [facility] ([place]) Comment on above: Performed By: #### Sheila WILLIS B12, IFES, SPE #### [place] [address] #### VITB6, B1WB #### [address] [address] Electrolyte Balance 5.0 mEq/L Normal [facility] ([place]) Comment on above: Performed By: #### G ALBA, B12, IFES, SPE #### [place] [address] #### VITB6, B1WB #### [address] [address] Globulin (S) [Mass/Vol] 3.4 G/dL Normal [facility] ([place]) Comment on above: Performed By: #### G ALBA, B12, IFES, SPE #### [place] [address] #### VITB6, B1WB #### [address] [address] Glucose [Mass/Vol] 86 mg/dL Normal 80-115 [facility] ([place] Comment on above: Performed By: #### Sheila WILLIS, B12, IFES, SPE #### [place] [address] #### VITB6, B1WB #### [address] [address] Potassium [Moles/Vol] 5.6 mmol/L High 3.5-5.1 [facility] ([place]) Comment on above: Performed By: #### G ALBA, B12, IFES, SPE #### [place] [address] #### VITB6, B1WB #### [address] [address] Protein [Mass/Vol] 6.8 G/dL Normal 6.4-8.2 [facility] ([place] Comment on above: Performed By: #### G ALBA, B12, IFES, SPE #### [place] [address] #### VITB6, B1WB #### [address] [address] Sodium [Moles/Vol] 143 mmol/L Normal 136-145 [facility] ([place] Comment on above: Performed By: #### Sheila ALBA, B12, IFES, SPE #### [place] [address] #### VITB6, B1WB #### [address] [address] Urea nitrogen [Mass/Vol] 24 mg/dL High 7-18 [facility] ([place]) Comment on above: Performed By: #### Sheila WILLIS, B12, IFES, SPE #### [place] [address] #### VITB6, B1WB #### [address] [address] Urea nitrogen/Creatinine [Mass ratio] 22 ratio Normal 7-27 [facility] ([place]) Comment on above: Performed By: #### Sheila WILLIS, B12, IFES, SPE #### [place] [address] #### VITB6, B1WB #### [address] [address] FEon 02-14-2020 Iron [Mass/Vol] 59 ug/dL Normal 50-170 [facility] ([place]) Comment on above: Performed By: #### G ALBA, B12, IFES, SPE #### [place] [address] #### VITB6, B1WB #### [address] [address] IBCon 02-14-2020 TIBC 289 mcg/dL Normal 250-450 [facility] ([place]) Comment on above: Performed By: #### G ALBA, B12, IFES, SPE #### [place] [address] #### VITB6, B1WB #### [place] [address] LIPIDon 02-14-2020 Cholesterol [Mass/Vol] 188 mg/dL Normal 0-200 [facility] ([place]) Comment on above: Result Comment: Chol esterol Reference Interval: Less than 200 Desirable 200-239 Borderline high risk 240 and above High risk Performed By: #### Sheila WILLIS, B12, IFES, SPE #### [place] [address] #### VITB6, B1WB #### [address] [address] Cholesterol in HDL [Mass/Vol] 61 mg/dL High 40-60 [facility] ([place]) Comment on above: Performed By: #### Sheila WILLIS, B12, IFES, SPE #### [place] [address] #### VITB6, B1WB #### [address] [address] Cholesterol in LDL [Mass/Vol] 117 mg/dL Normal 0-130 [facility] ([place]) Comment on above: Performed By: #### Sheila WILLIS, B12, IFES, SPE #### [place] [address] #### VITB6, B1WB #### [address] [address] Triglyceride [Mass/Vol] 52 mg/dL Normal 0-150 [facility] ([place]) Comment on above: Result Comment: Trig lyceride Reference Interval: Less than 150 Normal 150-199 Borderline high risk 200-499 High risk 500 or higher Very high risk Performed By: #### Sheila WILLIS, B12, IFES, SPE #### [place] [address] #### VITB6, B1WB #### [address] [address] TSHon 02-14-2020 TSH Qn 2.48 mcIU/mL Normal 0.36-3.74 [facility] ([place]) Comment on above: Performed By: #### Sheila WILLIS, B12, IFES, SPE #### [place] [address] #### VITB6, B1WB #### [address] [address] OVAPon 11-23-2019 Ova & Parasite exam See Results Below Normal [facility] ([place]) Comment on above: Result Comment: Spec imen Desc: Stool Sp. Request/Comment: Specimen received in Ova and Parasite Kit. Culture Result No parasites seen. Report Status Pending Performed By: [facility] [place] [address] Loan Teller: Billie Talbot IIIIA#: [id number] Phone#: Performed By: #### O VAP #### [address] [address] SPEon 06-02-2019 SPE Interpretation Normal serum protein electrophoresis pattern. No abnormality detected. Normal [facility] ([place]) Comment on above: Result Comment: Elec tronically Signed by: CHACE ADAMES 06/02/2019 11:13 EDT Performed By: #### G ALBA, B12, IFES, SPE #### [place] [address] #### VITB6, B1WB #### [address] [address] B1WBon 06-01-2019 Vitamin B1 (TDP), Whole Blood 274.6 nmol/L High 84.0-213.0 [facility] ([place]) Comment on above: Result Comment: This assay measures the concentration of thiamine diphosphate (TDP), the primary active form of vitamin B1. Approximately 90 percent of vitamin B1 present in whole blood is TDP. Thiamine and thiamine monophosphate, which comprise the remaining 10 percent, are not measured. This test was developed and its performance characteristics determined by [facility] ( [facility]). It has not been cleared or approved by the FDA. [facility] is regulated under CLIA as qualified to perform high complexity testing. This test is used for clinical purposes. It should not be regarded as investigational or for research. Performed By: [facility] [place] [address] Loan Teller: Billie Rowley#: [id number] Phone#: Performed By: #### Sheila WILLIS, B12, IFES, SPE #### [place] [address] #### VITB6, B1WB #### [place] [address] SPEon 06-01-2019 Albumin [Mass/Vol] 3.7 G/dL Normal 3.3-5.0 [facility] ([place] Comment on above: Performed By: #### Sheila WILLIS, B12, IFES, SPE #### [place] [address] #### VITB6, B1WB #### [place] [address] Alpha 1 0.2 G/dL Normal 0.1-0.4 [facility] ([place]) Comment on above: Performed By: #### Sheila WILLIS, B12, IFES, SPE #### [place] [address] #### VITB6, B1WB #### [place] [address] Alpha 2 1.1 G/dL Normal 0.6-1.2 [facility] ([place]) Comment on above: Performed By: #### Sheila WILLIS, B12, IFES, SPE #### [place] [address] #### VITB6, B1WB #### [address] [address] Beta 1.0 G/dL Normal 0.6-1.3 [facility] ([place]) Comment on above: Performed By: #### G ALBA, B12, IFES, SPE #### [place] [address] #### VITB6, B1WB #### [address] [address] Gamma 1.2 G/dL Normal 0.7-1.6 [facility] ([place]) Comment on above: Performed By: #### G ALBA, B12, IFES, SPE #### [place] [id number] #### VITB6, B1WB #### [address] [address] [id number] 06-01-2019 Vitamin B6 Lvl 281.1 High [facility] ([place]) Comment on above: Result Comment: Refe rence range: 20.0 to 125.0 Unit: nmol/L (NOTE) INTERPRETIVE INFORMATION: Vitamin B6 (Pyridoxal 5-Phosphate) Pyridoxal 5'-phosphate measured in a specimen collected following an 8-hour or overnight fast accurately indicates vitamin B6 nutritional status. Non-fasting specimen concentration reflects recent vitamin intake. Test developed and characteristics determined by [employer] [facility]. See Compliance Statement B: [email or web address] Performed by [facility], [address] [place] [id number] [email or web address], Thee Choi MD, Lab. Director Performed By: #### G ALBA, B12, IFES, SPE #### [place] [address] #### VITB6, B1WB #### [address] [address] B12on 05-28-2019 Cobalamin (Vitamin B12) [Mass/Vol] 1263 pg/mL High 211-911 [facility] ([place]) Comment on above: Performed By: #### G ALBA, B12, IFES, SPE #### [place] [address] #### VITB6, B1WB #### [address] [address] IFESon 05-28-2019 IFES Interpretation Immunofixation electrophoresis of serum shows the presence of only polyclonal immunoglobulins (IgG,A,M,[place] and Lambda), No monoclonal protein detected. Normal [facility] ([place]) Comment on above: Result Comment: Elec tronically Signed by: CHRISTIANE TRISTAN 05/28/2019 15:10 EDT Performed By: #### G ALBA, B12, IFES, SPE #### [place] [address] #### VITB6, B1WB #### [address] [address] SPEon 05-28-2019 Protein [Mass/Vol] 7.2 G/dL Normal 6.0-8.5 [facility] ([place] Comment on above: Performed By: #### G ALBA, B12, IFES, SPE #### [place] [address] #### VITB6, B1WB #### [place] [address] GLUon 05-27-2019 Glucose [Mass/Vol] 91 mg/dL Normal 80-115 [facility] ([place] Comment on above: Performed By: #### G ALBA, B12, IFES, SPE #### [place] [address] #### VITB6, B1WB #### [address] [address] Office Visit: [facility] 06-12-20 17 Documentation of current medications (procedure) Done Invalid Interpretation Code [employer] Work Phone: Fall risk assessment No Invalid Interpretation Code [employer] Work Phone: Tobacco use CP Former smoker Invalid Interpretation Code [employer] Work Phone: Clinical Lists Update: 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 lead 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 04-30-2017 Left ventricular Ejection fraction 60 % Invalid Interpretation Code [facility] Work Phone: Office Visiton 04-17-2017 Documentation of current medications (procedure) Done Invalid Interpretation Code [facility] Work Phone: Fall risk assessment No Invalid Interpretation Code [facility] Work Phone: Tobacco use CPHS Former smoker Invalid Interpretation Code [facility] Work Phone: Replaced Document: [facility] E CG Observationson 04-17-2017 EKG QRS axis -9 deg Invalid Interpretation Code [facility] Work Phone: [phone] electrocardiogram interpretation Sinus Rhythm WITHIN NORMAL LIMITS Invalid Interpretation Code [employer] Work Phone: [phone] GE use only - for [employer] import when terms are not otherwise specified 429 ms Invalid Interpretation Code [facility] Work Phone: [phone] Interpretation Sinus Rhythm WITHIN NORMAL LIMITS Invalid Interpretation Code [facility] Work Phone: [phone] P [place] 65 deg Invalid Interpretation Code [employer] Work Phone: [phone] P wave axis, electrocardiogram 65 deg Invalid Interpretation Code [employer] Work Phone: [phone] MI Interval 136 ms Invalid Interpretation Code [employer] Work Phone: [phone] MI interval, electrocardiogram 136 ms Invalid Interpretation Code [employer] Work Phone: [phone] Pulse (Heart Rate) 78 /min Invalid Interpretation Code [employer] Work Phone: [phone] QRS axis, electrocardiogram -9 deg Invalid Interpretation Code [employer] Work Phone: [phone] QRS Duration 84 ms Invalid Interpretation Code [employer] Work Phone: [phone] QRS duration, electrocardiogram 84 ms Invalid Interpretation Code [employer] Work Phone: [phone] QT Interval new path ms Invalid Interpretation Code [facility] [employer] Work Phone: [phone] QT interval, electrocardiogram new path ms Invalid Interpretation Code [facility] [employer] Work Phone: [phone] QTc Naylor 429 ms Invalid Interpretation Code [employer] Work Phone: [phone] T [place] 25 deg Invalid Interpretation Code [facility] Work Phone: [phone] T wave axis, electrocardiogram 25 deg Invalid Interpretation Code [employer] Work Phone: [phone] Discharge Summaryon 02-22-20 17 Discharge Summary Send Summary:Note Recipients: Prosper Hay MDDischarge:Summary:Admi ssion Date: .14-Feb-2017 23:05:00Discharge Date: [id number] Physician at Discharge: Prosper HayAdmission Reason: Bipolar d/o.(1)Final Discharge Diagnoses: bipolar disorderProcedures: noneCondition at Discharge: FairDisposition at Discharge: .HomeVital Signs: T P R BP YgO8Yuwly 36.5 16 100%Date/Time 02/21 5:58 02/21 5:58 02/21 5:58Range (36.5C - 37.1C ) (16 - 18 ) (98% - 100% )Highest temp of 37.1 C was recorded at 02/20 18:21Hospital Course:Mrs. Oliva is a 66 yo female with a PPH of bipolar I disorder wasadmitted to [facility] due to difficult outpatient medication management. Sheinitially presented to [facility] ED with AJITH (cr 3.56, base 1.1) of possiblepre-renal origin most likely secondary to poor PO intake/nephrotoxicity formeloxicam, but she was also referred by her psychiatrist for adjustment of herpsychotropic medicines by our inpatient team. Patient was initially admitted tomedicine for med management with psych C/L consulted.While in the ED, patient had shortness of breath in the ER likely 2/2 panic. Ptwas also thrombocytopenic and valproic acid was held. On day one of admissionpatient had elevated potassium (5.6) overnight and was treated with Kayexalatewith normalization of K by morning. Pt was placed on a low K diet. Psychiatryconsulted for medical management and investigation of side effects of tremorsand fatigue from valproic acid. She was seen by psychiatry on day two ofadmission (02/12), recommended holding all psych meds to determine if adversesymptoms (tremors, fatigue, loss of appetite) resolve and B12 (elevated, nodeficiency), VDRL (nonreactive), Vitamin D (wnl). They also recommendedinpatient psych hospitalization for further observation and optimization of herpsychiatric medication regimen considering her extensive recent history oftreatment failure. On 02/14 her Cr is at its lowest of this visit (1.30) whichis very near to her last recorded baseline of 1.1, platelets at 106 (trendingup). Patient was cleared medically for transfer to psych inpatient.The patient was admitted to geriatric psychiatry on 3W under Dr. Hay on avoluntary basis. She was restricted to the rivera and placed on suicide,elopement, and behavioral precautions. The plan at the time of admission wasevaluation, stabilization, and treatment.Upon admission, patient reported that on 02/06/17 she visited her psychiatristwho recommended that she be admitted to the hospital for med management. Shementioned that she was having trouble with sleep. She reports having troubleeating and lost some weight since the beginning of the year when she was 124lbs and a week ago she was 107 lbs. In the past, pt used to pace around and hadextremely high levels of energy that would come and go before she got .It was around this time that she was diagnosed with bipolar I disorder. Shedenies any problems with mood in the past few years. While on the unit, pt moodwas happy and she denied any depressive or manic symptoms. Neurocognitiveworkup showed a MOCA score of 12 and a KEE score of 11.Pt was restarted on Depakote and the dose was titrated up as appropriate. Hertrazodone was also discontinued. Pt tolerated these medication changes well.Collateral was obtained from (Cain), psychiatrist (Dr. Brody), andneurologist (Dr. Post). Cain and Dr. Brody agreed that pt was havingmemory problems and would need help at home. They also agreed that pt shouldfollow up with Dr. Hay as an outpatient, as Dr. Brody feels he has reachedhis limit in terms of ideas for treatment for this patient. CT head resultsshowing central volume loss, diffuse cortical atrophy, and sulcal expansionsuggestion of dementia. Mr. Oliva arranged for home nursing care and adultdaycare was also discussed. Pt was very interactive with peers and respondedwell to the milieu. She did not require restraints, seclusion, or PRNmedications for agitation. Her mood improved during her stay.She was noted to have bilateral lower extremity edema which responded well toTED hose and Lasix. Vital signs were stable throughout hospital course. Pt didnot take prednisone while she was in hospital, as she states that Dr. Gay Venegas (neurologist) told her she did not have myasthenia gravis. Shetolerated these medication changes well.On day of discharge, pt stated her mood was improved from day of admission andshe felt more awake and alert. She states she plans on [facility] her house and will follow up with Dr. Hay as an outpatienton March 04. She will be discharged home to live with and son. Shewill have in-home nursing care and will pick her up. We have discussedthe eventual need of a higher level of care in the future and patient cindy understand this.MSE on day of discharge:General: 67 yo petite female dressed in street clothes, fair groomingand hygiene, no acute distressAppearance: Appears well-hydrated, well-nourished, and well-groomed. Appearsolder than stated age.Attitude: Calm, pleasant, cooperative, forthcoming.Behavior: Appropriate eye contact.Motor Activity: Some abnormal involuntary jaw movements noted, stable frombaselineSpeech: Slowed rate but talkative, normal rhythm and volume.Mood: goodAffect: Mood congruent, stable, lively with full range.Thought Process: Thought process was linear, organized, and goal-directed.Thought Content: Thought content was devoid of suicidal ideation or intent,homicidal ideation or intent, self-harm ideation or intent, delusions,illusions, obsessions, or paranoia.Thought Perception: Did not endorse auditory or visual hallucinations. Patientdid not appear to be internally distracted or preoccupied.Cognition: Alert and oriented to person and place. Recent memory loss andcognitive deficits noted.Insight: Fair as pt understands need for treatment.Judgment: Fair as pt is compliant with treatment plan.Given the patient?s static risk factors (Major psychiatric diagnosis, retired)the patient is considered a MINIMAL risk for suicidal actions. Given thepatient?s dynamic risk factors (Access to available means, paranoid ideationabout others), the patient is considered a MINIMAL (<7) risk ofaggression/violence towards others.? Protective factors include marriage,children, denominational beliefs, social supports. Treatment team plans to modifyrisk by instructing to make home safe (pistol is stored elsewhere),medication management, establishment with new outpatient doctor, access toin-home medical support, and information about additional resources includingS and adult daycare.Psychiatric Care:Psychiatric Continuing Care Plan:Reason for Hospitalization: depression, suicidal thoughtsDischarge Destination: homeSafety Recommendations: should not driveAdvance Directive Medical: noSocial Interventions: Pending/Recommended/Esta blished: home health servicesSuccessful Interventions during Inpatient Hospital Stay: daily routine/structure, limit setting/ redirectionTobacco Use: Screening: Was the patient screened within the first 3 days ofadmission for tobacco use (cigarettes, smokeless tobacco, pipe, and cigar)within the previous 30 days?: patient refusedReminder: The Rationale for Discharging this Patient on Multiple Anti PsychoticMedications is MandatoryThis patient is being discharged on multiple antipsychotic medications: no:Take all medications until outpatient provider advises otherwise.Questions After Hospitalization:Phone Number: [address] For Results of Any Studies Pending at Discharge: Phone: [address] Discharge Information:and Continuing Care:Discharge Instructions:Activity: activity as tolerated. May shower.. May not drive.Nutrition/Diet: regularFollow Up Appointments:Follow-Up Appointment 01: Physician/Dept/Service: Dr. Hay [place] Reason for Referral: Follow-up psychiatry Scheduled Date/Time: 04-Mar-2017 16:00 Location: [address], [place] [address] [phone] Appointment 02: Physician/Dept/Service: Please follow up with your Primary CarePhysicianDischarge Medications: Home Medication divalproex sodium 250 mg oral delayed release tablet - 1 tab(s) orally onceaday (at bedtime) - (Every 1 day at ,20:30 ) for mood furosemide 40 mg oral tablet - 1 tab(s) orally once a day for leg swelling melatonin 3 mg oral tablet - 2 tab(s) orally at bedtime for sleep levothyroxine 25 mcg (0.025 mg) oral tablet - 1 tab(s) orally once a day forthyroid PRN Medicationpolyethylene glycol 3350 oral powder for reconstitution - 17 gram(s) orallyonce a day, As needed, ConstipationLab Results - Pending: NoneRadiology Results - Pending: NoneAttestation:Date and time discharge summary faxed: 21-Feb-2017 11:40Cosign/Attestation: .: Attestati on: I saw and evaluated the patient. I personally obtained the keyand critical portions of the history and physical exam or was physicallypresent for caballero and critical portions performed by the resident/fellow. Ireviewed the resident/fellow?s documentation and discussed the patient with theresident/fellow. I agree with the resident/fellow?s medical decision making asdocumented in the resident?s noteComments/ Additional Findings:Please take your medications as prescribed and attend your follow-upappointment(s), as scheduled.IN CASE OF EMERGENCY.Call your outpatient psychiatrist right away or travel to the nearest emergencydepartment if you have new or worsening mental health symptoms; unusual changesin behavior, mood, thoughts or feelings; thoughts of wanting to harm yourselfor other people; or if you are experiencing serious medication side effects.Call 911 in the case of an emergency.WHAT SHOULD I KNOW ABOUT STORAGE AND DISPOSAL OF MY MEDICATION(S)?--Keep each medication in the container it came in, tightly closed, and out ofreach of children.--Take any medication that is outdated or no longer needed to your local policestation for proper disposal.WHAT OTHER INFORMATION SHOULD I KNOW?--Keep all appointments with your doctor.--Do not let anyone else take your medication(s). Ask your pharmacist anyquestions you have about refilling your prescription.--It is important for you to keep a written list of all of the prescription andnonprescription (leky-sec-gwehiia) medicines you are taking, as well as anyproducts such as vitamins, minerals, or other dietary supplements. You shouldbring this list with you each time you visit a doctor or if you are admitted toa hospital. It is also important information to carry with you in case ofemergencies..: Electronic Signatures:Catrachito Madrid (Resident)) (Signed 21-Feb-2017 09:36) Authored: Send Summary, Summary Content, Ongoing Care, AttestationProsper Hay) (Signed 21-Feb-2017 11:41) Authored: Send Summary, Summary Content, Psychiatric Care, Ongoing Care,Attestation Co-Signer: Summary Content, Ongoing Care, AttestationAline Carrasco (CLIN COOR) (Signed 21-Feb-2017 15:35) Authored: Send Summary, Summary Content, Psychiatric Care, Ongoing CareLast Updated: 21-Feb-2017 15:35 by Aline Carrasco (CLIN COOR)References:1. Data Referenced From Consult-Medicine 02/17/2017 3:[address] [facility] [address] HEAD WO CONTon 02-17-2017 CT HEAD WO CONT Name: YOLANDA OLIVAN STUDY:CT HEAD WO CONT; 02/17/2017 12:36 pm INDICATION:Signs/Symptom s: neurocognitive decline. COMPARISON:None. ORDERING CLINICIAN:CATRACHITO MADRID TECHNIQUE:Noncontrast axial CT scan of head was performed. The images werereviewed in bone, brain, blood and soft tissue windows. FINDINGS:CSF Spaces: Cerebral ventricles and CSF spaces are mildly dilated. Parenchyma: Mild decreased attenuation of the periventricular whitematter consistent with small vessel ischemic changes anddegeneration. The nettles-white differentiation is intact. There is nomass effect or midline shift. There is no extraaxial fluidcollection. There is no intracranial hemorrhage. Calvarium: The calvarium is unremarkable. Paranasal sinuses and mastoids: Visualized paranasal sinuses andmastoids are clear. IMPRESSION:No CT evidence of acute process. Mild parenchymal volume loss. Mild decreased attenuation of theperiventricular white matter consistent with small vessel ischemicchanges and degeneration.Electronica lly signed by: KAMILAH LIAO MD [facility] Clinical Lists Update: Pre lead caster 12-24-2016 Alanine aminotransferase (ALT) 18 U/L Invalid Interpretation Code [facility] Work Phone: [phone] Albumin 2.8 g/dL Low [facility] Work Phone: [phone] Alkaline phosphatase (ALP) 56 U/L Invalid Interpretation Code [facility] Work Phone: [phone] Aspartate aminotransferase (AST) 22 U/L Invalid Interpretation Code [facility] Work Phone: [phone] Bilirubin (direct) 0.11 mg/dL Invalid Interpretation Code [facility] Work Phone: [phone] Bilirubin (total) 0.30 mg/dL Invalid Interpretation Code [facility] Work Phone: [phone] Erythrocytes (RBC) 3.56 10*6/uL Low [facility] Work Phone: [phone] Hematocrit (HCT) 35.1 % Low [facility] Work Phone: [phone] Hemoglobin (HGB) 11.6 g/dL Low [facility] Work Phone: [phone] MCH 32.6 pg High [facility] Work Phone: [phone] MCHC 33.0 g/dL Invalid Interpretation Code [facility] Work Phone: [phone] MCV 98.6 fL Invalid Interpretation Code [facility] Work Phone: [phone] Platelets 158 10*3/mm3 Invalid Interpretation Code [facility] Work Phone: [phone] PMV by Tomas 11.0 fL Invalid Interpretation Code [facility] Work Phone: [phone] Protein 6.7 g/dL Invalid Interpretation Code [facility] Work Phone: [phone] RDW-CA 15.9 % High [facility] Work Phone: [phone] WBC (Leukocytes) 5.5 10*3/uL Invalid Interpretation Code [facility] Work Phone: [phone] Clinical Lists Update: Pre10-17-2016 BUN/Creatinine Ratio 21 mg/mg Invalid Interpretation Code [facility] Work Phone: [phone] Calcium 9.6 mg/dL Invalid Interpretation Code [facility] Work Phone: [phone] Chloride 100 mmol/L Invalid Interpretation Code [facility] Work Phone: [phone] CO2 31 mmol/L Invalid Interpretation Code [facility] Work Phone: [phone] Creatinine 1.4 mg/dL High [facility] Work Phone: [phone] Globulin 2.4 g/dL Invalid Interpretation Code [facility] Work Phone: [phone] Glucose 118 mg/dL High [facility] Work Phone: [phone] Glucose mass conc 118 mg/dL High [facility] Work Phone: [phone] Potassium 4.5 mmol/L Invalid Interpretation Code [facility] Work Phone: [phone] Sodium 140 mmol/L Invalid Interpretation Code [facility] Work Phone: [phone] Urea nitrogen 30 mg/dL High [facility] Work Phone: [phone] Clinical Lists Update: Prelo lead caster 09-07-2016 Cholesterol 177 mg/dL Invalid Interpretation Code [facility] Work Phone: [phone] HDL Cholesterol 66 mg/dL High [facility] Work Phone: [phone] LDL Cholesterol 90 mg/dL Invalid Interpretation Code [facility] Work Phone: [phone] Thyroid stimulating hormone (TSH) 2.04 u[iU]/mL Invalid Interpretation Code [facility] Work Phone: [phone] Thyroxine (T4) 6.1 ug/dL Invalid Interpretation Code [facility] Work Phone: [phone] Triglyceride 104 mg/dL Invalid Interpretation Code [facility] Work Phone: [phone] Cholesterol in HDL mass conc 66 mg/dL [facility] Work Phone: [phone] Cholesterol in LDL mass conc 90 mg/dL [facility] Work Phone: [phone] Cholesterol mass conc 177 mg/dL [facility] Work Phone: [phone] Triglyceride mass conc 104 mg/dL [facility] Work Phone: Vital Signs Date Time Vital Sign Value Performing Clinician Facility 08-24-2024 14:05-0500 Body mass index (BMI) [Ratio] 24.26 kg/m2 Prosper Hay MD PhD Work Phone: [facility] 08-24-2024 14:05-0500 Body temperature 94.6 [degF] Prosper Hay MD PhD Work Phone: [facility] 08-24-2024 14:05-0500 Body weight 52.66 kg Prosper Hay MD PhD Work Phone: [facility] 08-24-2024 14:05-0500 Diastolic blood pressure 78 mm[Hg] Prosper Hay MD PhD Work Phone: [facility] 08-24-2024 14:05-0500 Heart rate 73 /min Prosper Hay MD PhD Work Phone: [facility] 08-24-2024 14:05-0500 Respiratory rate 16 /min Prosper Hay MD PhD Work Phone: [facility] 08-24-2024 14:05-0500 Systolic blood pressure 120 mm[Hg] Prosper Hay MD PhD Work Phone: [facility] 02-17-2024 12:56-0400 Body mass index (BMI) [Ratio] 25.02 kg/m2 Prosper Hay MD PhD Work Phone: [facility] 02-17-2024 12:56-0400 Body temperature 97.39 [degF] Prosper Hay MD PhD Work Phone: [facility] 02-17-2024 12:56-0400 Body weight 54.3 kg Prosper Hay MD PhD Work Phone: [facility] 02-17-2024 12:56-0400 Diastolic blood pressure 74 mm[Hg] Prosper Hay MD PhD Work Phone: [facility] 02-17-2024 12:56-0400 Heart rate 69 /min Prosper Hay MD PhD Work Phone: [facility] 02-17-2024 12:56-0400 Respiratory rate 18 /min Prosper Hay MD PhD Work Phone: [facility] 02-17-2024 12:56-0400 Systolic blood pressure 144 mm[Hg] Prosper Hay MD PhD Work Phone: [facility] 09-12-2022 09:55-0500 Body height 147.3 cm Inocente Augusta HARDEN - ZIG [employer] SPRING 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 Work Phone: [employer] 09-12-2022 09:55-0500 Body mass index (BMI) [Ratio] 25.67 kg/m2 Inocente Irvingkillian HARDEN - [employer] SPRING 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 Work Phone: [employer] 09-12-2022 09:55-0500 Body temperature 97.5 [degF] Inocente Augusta WAREHOUSING TECHNICIAN - [employer] SPRING 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 Work Phone: [employer] 09-12-2022 09:55-0500 Body weight 55.7 kg Inocente Irvinger WAREHOUSING TECHNICIAN - [employer] SPRING 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 Work Phone: [employer] 09-12-2022 09:55-0500 Diastolic blood pressure 59 mm[Hg] Inocente Irvinger WAREHOUSING TECHNICIAN - [employer] SPRING 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 Work Phone: [employer] 09-12-2022 09:55-0500 Heart rate 74 /min Inocente Augusta PATELN - [employer] SPRING 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 Work Phone: [employer] 09-12-2022 09:55-0500 Systolic blood pressure 129 mm[Hg] Inocente Deras APRN - [employer] SPRING 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 Work Phone: [employer] 08-26-2022 05:09-0500 Body temperature 97.59 [degF] Sagar Hendrickson MD Work Phone: [facility] 08-26-2022 05:09-0500 Diastolic blood pressure 68 mm[Hg] Sagar Hendrickson MD Work Phone: [employer] 08-26-2022 05:09-0500 Heart rate 77 /min Sagar Hendrickson MD Work Phone: [facility] 08-26-2022 05:09-0500 Respiratory rate 18 /min Sagar Hendrickson MD Work Phone: [facility] 08-26-2022 05:09-0500 SaO2% (BldA) [Mass fraction] 96 % Sagar Hendrickson MD Work Phone: [facility] 08-26-2022 05:09-0500 Systolic blood pressure 125 mm[Hg] Sagar Hendrickson MD Work Phone: [facility] 08-25-2022 06:00-0500 Body mass index (BMI) [Ratio] 25.25 kg/m2 Sagar Hendrickson MD Work Phone: [facility] 08-25-2022 06:00-0500 Body weight 54.8 kg Sagar Hendrickson MD Work Phone: [facility] 08-23-2022 05:51-0500 Body height 147.3 cm Sagar Hendrickson MD Work Phone: [facility] 08-20-2022 15:06-0500 Body mass index (BMI) [Ratio] 25.92 kg/m2 Inocente Quijano Work Phone: [facility] Work Phone: 08-20-2022 15:06-0500 Body surface area Derived from formula 1.49 m2 Inocente Quijano Work Phone: [facility] Work Phone: 08-20-2022 15:06-0500 Body temperature 98.3 [degF] Inocente Quijano Work Phone: [facility] Work Phone: 08-20-2022 15:06-0500 Body weight 56.25 kg Inocente Quijano Work Phone: [facility] Work Phone: 08-20-2022 15:06-0500 Diastolic blood pressure 64 mm[Hg] Inocente Ayalaoff Work Phone: [facility] Work Phone: 08-20-2022 15:06-0500 Heart rate 68 /min Inocente Ayalaoff Work Phone: [facility] Work Phone: 08-20-2022 15:06-0500 Respiratory rate 16 /min Inocente Ayalaoff Work Phone: [facility] Work Phone: 08-20-2022 15:06-0500 Systolic blood pressure 130 mm[Hg] Inocente Ayalaoff Work Phone: [facility] Work Phone: 08-20-2022 15:06-0500 0 1 Inocente Ayalaoff Work Phone: [facility] Work Phone: Comment on above: [employer] 03-27-2022 10:57-0400 Body height 147.32 cm Inocente Ayalaoff Work Phone: UA-Pkmcofdsnn-Vrntu r [facility] Work Phone: 03-27-2022 10:57-0400 Body mass index (BMI) [Ratio] 25.97 kg/m2 Inocente Ayalaoff Work Phone: RH-Irurbhgtmd-Smyln r [facility] [place] Work Phone: 03-27-2022 10:57-0400 Body surface area Derived from formula 1.49 m2 Inocente Ayalaoff Work Phone: GO-Fcvkocnwid-Zqybz r [facility] [place] Work Phone: 03-27-2022 10:57-0400 Body temperature 97.3 [degF] Inocente Ayalaoff Work Phone: GR-Ownmgsowah-Soyop r [facility] Work Phone: 03-27-2022 10:57-0400 Body weight 56.36 kg Inocente Quijano Work Phone: PV-Yeeytvbcjt-Izseg r [facility] Work Phone: 03-27-2022 10:57-0400 Diastolic blood pressure 69 mm[Hg] Inocente Quijano Work Phone: PR-Qmyfmdxeeo-Akulq r [facility] Work Phone: 03-27-2022 10:57-0400 Heart rate 73 /min Inocente Quijano Work Phone: GJ-Chfqluhuhz-Fubaj r [facility] Work Phone: 03-27-2022 10:57-0400 SaO2% (BldA) [Mass fraction] 98 % Inocente Quijano Work Phone: VB-Ymexdmtkfi-Rtzoe r [facility] Work Phone: 03-27-2022 10:57-0400 Systolic blood pressure 128 mm[Hg] Inocente Quijano Work Phone: SX-Kwazuukjvp-Vxird r [facility] Work Phone: 10-16-2021 14:07-0500 Body mass index (BMI) [Ratio] 25.71 kg/m2 Inocente Quijano Work Phone: [facility] Work Phone: 10-16-2021 14:07-0500 Body surface area Derived from formula 1.48 m2 Inocente Quijano Work Phone: [facility] Work Phone: 10-16-2021 14:07-0500 Body temperature 95.4 [degF] Inocente Quijano Work Phone: [facility] Work Phone: 10-16-2021 14:07-0500 Body weight 55.79 kg Inocente Juliane Naumoff Work Phone: [facility] Work Phone: 10-16-2021 14:07-0500 Diastolic blood pressure 60 mm[Hg] Inocente Juliane Lupeumoff Work Phone: [facility] Work Phone: 10-16-2021 14:07-0500 Heart rate 72 /min Inocente Juliane Lupeumoff Work Phone: [facility] Work Phone: 10-16-2021 14:07-0500 Respiratory rate 14 /min Inocente Andradeumoff Work Phone: [facility] Work Phone: 10-16-2021 14:07-0500 Systolic blood pressure 120 mm[Hg] Inocente Cardozo Naumoff Work Phone: [facility] Work Phone: 06-12-2017 15:35-0400 BMI (Body Mass Index) 22.63 kg/m2 [facility] Work Phone: 06-12-2017 15:35-0400 BP Diastolic 78 mm[Hg] [facility] Work Phone: 06-12-2017 15:35-0400 BP Systolic 122 mm[Hg] [facility] Work Phone: 06-12-2017 15:35-0400 Height 147.32 cm [facility] Work Phone: 06-12-2017 15:35-0400 Pulse (Heart Rate) 72 /min [facility] Work Phone: 06-12-2017 15:35-0400 Weight 49.12 kg Madhuri White [facility] Work Phone: 04-17-2017 11:46-0400 BMI (Body Mass Index) 21.94 kg/m2 Jefferson Bonilla [facility] Work Phone: 04-17-2017 11:46-0400 BP Diastolic 64 mm[Hg] Jefferson DeFinis [facility] Work Phone: 04-17-2017 11:46-0400 BP Systolic 112 mm[Hg] Jefferson DeFinis [facility] Work Phone: 04-17-2017 11:46-0400 Height 147.32 cm Jefferson DeFinis [facility] Work Phone: 04-17-2017 11:46-0400 Pulse (Heart Rate) 80 /min Jefferson DeFinis [facility] Work Phone: 04-17-2017 11:46-0400 Respiratory Rate 18 /min Jefferson Bonilla [facility] Work Phone: 04-17-2017 11:46-0400 Weight 47.63 kg Jefferson Bonilla [facility] Work Phone: Encounters Encounter Date Encounter Type Care Provider Facility Start: 01-25-2025 End: 01-25-2025 ambulatory Libby Luque [facility] Start: 01-19-2025 End: 01-19-2025 ambulatory Brooke Camacho PHARMACOGNOSIST Facility:[facility] Start: 10-01-2024 End: 10-01-2024 ambulatory Libby Ene Facility:[facility] Start: 09-02-2024 End: 09-02-2024 ambulatory Brooke Camacho PHARMACOGNOSIST Facility[facility] Start: 08-24-2024 End: 08-24-2024 Office outpatient visit 25 minutes Prosper Hay MD PhD Work Phone: [facility] Comment on above: Bipolar disorder, in full remission, most recent episode mixed (Multi) Start: 08-24-2024 End: 08-24-2024 ambulatory PROSPER HAY [facility] Start: 07-23-2024 End: 07-23-2024 ambulatory Libby Miednikolai Facility:[facility] Start: 04-06-2024 End: [facility] Start: 04-02-2024 End: 04-02-2024 ambulatory David Talavera Facility:[facility] Start: 03-01-2024 End: 03-01-2024 ambulatory LIBBY [facility] Start: 02-17-2024 End: 02-17-2024 Office outpatient visit 40 minutes Prosper Hay MD PhD Work Phone: [facility] Comment on above: Bipolar disorder, in full remission, most recent episode mixed (Multi) Start: 02-17-2024 End: 02-17-2024 ambulatory PROSPER HAY [facility] Start: 2023 End: 2023 Office outpatient visit 15 minutes [facility] Comment on above: Bipolar disorder, in full remission, most recent episode mixed (CMS/HCC) Start: 10-28-2022 AUDIT Inocente Abarca Work Phone: [facility] Work Phone: Start: 09-12-2022 End: 09-13-2022 ambulatory INOCENTE DERAS [facility] Start: 09-12-2022 End: 09-12-2022 Postop follow up visit related to original px Inocente Deras WAREHOUSING TECHNICIAN - [employer] 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 Work Phone: [facility] Comment on above: Pleural effusion (Pr imary Dx) Start: 09-09-2022 Telephone encounter Sagar peck MD Work Phone: [facility] Comment on above: Post-op Problem Start: 09-03-2022 Telephone encounter Sagar peck MD Work Phone: [facility] Comment on above: Other Start: 09-01-2022 Telephone encounter Hussein Lima WAREHOUSING TECHNICIAN - [employer] SPRING 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 Work Phone: [facility] Comment on above: Other (Page Out) Start: 08-26-2022 End: 08-27-2022 Evaluation and management of inpatient SAGAR [facility] Start: 08-25-2022 End: 08-26-2022 Evaluation and management of inpatient INOCENTE [facility] Comment on above: Arrived Start: 08-25-2022 End: 08-25-2022 Evaluation and management of inpatient Ach Ed Xr Portable [facility] Comment on above: Arrived Start: 08-24-2022 End: 08-25-2022 Evaluation and management of inpatient [facility] Start: 08-24-2022 End: 08-24-2022 Evaluation and management of inpatient Ach Xr Portable 4 [facility] Comment on above: Arrived Start: 08-23-2022 End: 08-24-2022 Evaluation and management of inpatient [facility] Start: 08-23-2022 End: 08-23-2022 Evaluation and management of inpatient Ach Xr Portable 1 [facility] Comment on above: Arrived Start: 08-23-2022 End: 08-26-2022 Evaluation and management of inpatient [facility] Start: 08-23-2022 End: 08-26-2022 Evaluation and management of inpatient Sagar Hendrickson MD Work Phone: [facility] Comment on above: Pleural effusion (Pr imary Dx); Pleural effusion, not elsewhere classified; S/P thoracotomy Start: 08-20-2022 Office outpatient vi sit 15 minutes Inocente Quijano Work Phone: [facility] Work Phone: Start: 08-15-2022 End: 08-15-2022 ambulatory [facility] Comment on above: Pleural effusion (Pr imary Dx) Start: 08-15-2022 Telephone encounter Sagar peck MD Work Phone: [facility] Comment on above: Surgery Scheduling Start: 08-15-2022 End: 08-15-2022 Office outpatient visit 15 minutes Sagar Hendrickson MD Work Phone: [facility] Comment on above: Pleural effusion (Pr imary Dx) Start: 07-25-2022 AUDIT Inocente atkins Work Phone: [facility] Work Phone: Start: 07-25-2022 End: 07-25-2022 ambulatory [facility] Start: 07-22-2022 End: 07-23-2022 ambulatory [facility] Start: 07-12-2022 End: 07-13-2022 ambulatory [facility] Start: 07-08-2022 End: 07-09-2022 ambulatory [facility] Start: 04-26-2022 AUDIT Inocente Abarca ff Work Phone: JU-Xhmulhuyvx-Fkxory [facility] Work Phone: Start: 03-27-2022 Office outpatient vi sit 15 minutes Inocente Quijano Work Phone: XP-Srackipuvq-Rysawu [facility] Work Phone: Start: 02-25-2022 AUDIT Inocente Ayalao ff Work Phone: FL-Dpffqxwqzo-Lhzbtv [facility] Work Phone: Start: 02-22-2022 AUDIT Inocente Abarca ff Work Phone: JI-Cxguctwabc-Xptcll [facility] Work Phone: Start: 01-30-2022 Rx Renewal Inocente Abarca ff Work Phone: [facility] Work Phone: Start: 10-16-2021 Office outpatient vi sit 15 minutes Inocente Quijano [facility] Work Phone: Start: 07-31-2021 Chart Update Inocente atkins Work Phone: HK-Rucnyzgxwu-Sdqoau [facility] Work Phone: Start: 07-23-2021 AUDIT Inocente Abarca ff Work Phone: PV-Yokcfjqpiz-Uuilit [facility] Work Phone: Start: 05-15-2021 Office outpatient vi sit 15 minutes Inocente Quijano Work Phone: [facility] Work Phone: Start: 07-13-2019 Patient encounter procedure Prosper Hay [facility]ng[facility] Work Phone: Start: 05-26-2019 Patient encounter procedure Prosper Hay [facility]csa[facility] Work Phone: Start: 12-31-2018 Patient encounter procedure Prosper Hay CQ[facility]oehabrib[facility] Work Phone: Start: End: Patient encounter status Inocente Juliane Quijano Work Phone: [facility]nxj[facility] Work Phone: Procedures Date Procedure Procedure Detail Performing Clinician Start: 08-26-2022 Radiologic exam ches t single view Michelle Mckinney MD Work Phone: Start: 08-25-2022 Radiologic exam ches t single view Michelle Mckinney MD Work Phone: Start: 08-24-2022 Basic metabolic pane l calcium total Michelle Mckinney MD Work Phone: Start: 08-24-2022 Radiologic exam ches t single view Inocente Deras WAREHOUSING TECHNICIAN - [employer]ING 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 Work Phone: Start: 08-24-2022 Basic metabolic pane l calcium total Inocente Deras APRN - [employer]ING 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 Work Phone: Start: 08-23-2022 End: 08-23-2022 Radiologic exam chest single view Inocente Deras APRN - [employer]ING 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 Work Phone: Start: 08-23-2022 Basic metabolic pane l calcium total Inocente Deras WAREHOUSING TECHNICIAN - [employer]ING 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 Work Phone: Start: 08-23-2022 Level iv surg pathol ogy gross&microscopic exam Sagar Hendrickson MD Work Phone: Start: 08-23-2022 End: 08-23-2022 Thoracoscopy w/pleurodesis Sagar Hyde Work Phone: Start: 08-23-2022 ABO and Rh group [Ty pe] in Blood by Confirmatory method Jamey Galvan MD Work Phone: Start: 08-23-2022 Blood typing serologic abo Jamey Galvan MD Work Phone: Start: 08-23-2022 Comprehensive metabolic panel Jamey Galvan MD Work Phone: Start: 08-23-2022 Ecg routine ecg w/le ast 12 lds trcg only w/o i&r Jamey Galvan MD Work Phone: Start: 07-25-2020 Blood count complete auto&auto difrntl wbc [facility] Start: 07-25-2020 Comprehensive metabo lic 2000 panel [facility] Start: 07-25-2020 Valproate [Mass/volu me] in Serum or Plasma [facility] Start: 04-17-2017 End: 04-17-2017 Ecg routine ecg w/least 12 lds w/i&r Atif Avalos MD Start: 04-17-2017 End: 04-30-2017 Echocardiography Atif Avalos MD Start: 04-17-2017 End: 04-17-2017 Follow Up Appt 6 weeks Atif Avalos MD Start: 04-17-2017 End: 04-17-2017 MMM Atif Avalos MD Start: 04-17-2017 End: 04-30-2017 Echocardiography Atif Avalos MD Start: 04-17-2017 End: 04-17-2017 Electrocardiogram, complete Atif siddiqui MD Start: 04-17-2017 End: 04-17-2017 Follow Up Appt 6 weeks Atif Avalos MD Start: 04-17-2017 End: 04-17-2017 PAUL Avalos MD Dilation and curettage Felipe Hay Hammer toe operation Prosper Bharti Removal of nail plate Alphonse Hay Plan of Treatment Date Care Activity Detail Author Start: 2026 RSV High Risk: (Elde rly (60+) or Population) (1 - 1-dose 75+ series) RSV High Risk: (Elderly (60+) or Population) (1 - 1-dose 75+ series) [facility] Start: 08-24-2024 End: 10-22-2024 CBC W Auto Differential panel - Blood CBC and Auto Differential Lab Routine Bipolar disorder, in full remission, most recent episode mixed (Multi) Expected: 08/24/2024 (Approximate), Expires: 10/22/2024 [facility] Work Phone: Comment on above: Expected: 08/24/2024 (Approximate), Expires: 10/22/2024 Start: 08-24-2024 End: 10-22-2024 Comprehensive metabolic 2000 panel - Serum or Plasma Comprehensive metabolic panel Lab Routine Bipolar disorder, in full remission, most recent episode mixed (Multi) Expected: 08/24/2024 (Approximate), Expires: 10/22/2024 [facility] Work Phone: Comment on above: Expected: 08/24/2024 (Approximate), Expires: 10/22/2024 Start: 08-24-2024 End: 10-22-2024 Valproate [Mass/volume] in Serum or Plasma Valproic Acid Lab Routine Bipolar disorder, in full remission, most recent episode mixed (Multi) Expected: 08/24/2024 (Approximate), Expires: 10/22/2024 [facility] Service [facility] Work Phone: Comment on above: Expected: 08/24/2024 (Approximate), Expires: 10/22/2024 Start: 04-11-2024 COVID-19 Vaccine () COVID-19 Vaccine () [facility] Start: 04-11-2024 Influenza vaccination Influenza Vacc ine (#1) [facility] Start: 02-17-2024 End: 04-19-2024 CBC W Auto Differential panel - Blood CBC and Auto Differential Lab Routine Bipolar disorder, in full remission, most recent episode mixed (Multi) Expected: 02/17/2024 (Approximate), Expires: 04/19/2024 [facility] Work Phone: Comment on above: Expected: 02/17/2024 (Approximate), Expires: 04/19/2024 Start: 02-17-2024 End: 04-19-2024 Comprehensive metabolic 2000 panel - Serum or Plasma Comprehensive metabolic panel Lab Routine Bipolar disorder, in full remission, most recent episode mixed (Multi) Expected: 02/17/2024 (Approximate), Expires: 04/19/2024 [facility] Work Phone: Comment on above: Expected: 02/17/2024 (Approximate), Expires: 04/19/2024 Start: 02-17-2024 End: 04-19-2024 Valproate [Mass/volume] in Serum or Plasma Valproic Acid Lab Routine Bipolar disorder, in full remission, most recent episode mixed (Multi) Expected: 02/17/2024 (Approximate), Expires: 04/19/2024 [facility] Service Area Work Phone: Comment on above: Expected: 02/17/2024 (Approximate), Expires: 04/19/2024 Start: 02-17-2024 End: 02-17-2024 Patient encounter procedure 02/17/2024 1:00 PM EDT Office Visit [facility] [address] [address] [place] PhD [address] [address] [place] [address] [facility] Start: 2023 End: 10-21-2023 CBC W Auto Differential panel - Blood CBC and Auto Differential Lab Routine Bipolar disorder, in full remission, most recent episode mixed (CMS/HCC) Expected: 2023 (Approximate), Expires: 10/21/2023 [facility] Work Phone: Comment on above: Expected: 2023 (Approximate), Expires: 10/21/2023 Start: 2023 End: 10-21-2023 Comprehensive metabolic 2000 panel - Serum or Plasma Comprehensive metabolic panel Lab Routine Bipolar disorder, in full remission, most recent episode mixed (CMS/HCC) Expected: 2023 (Approximate), Expires: 10/21/2023 [facility] Work Phone: Comment on above: Expected: 2023 (Approximate), Expires: 10/21/2023 Start: 2023 End: 10-21-2023 Valproate [Mass/volume] in Serum or Plasma Valproic Acid Lab Routine Bipolar disorder, in full remission, most recent episode mixed (CMS/HCC) Expected: 2023 (Approximate), Expires: 10/21/2023 [facility] Service Area Work Phone: Comment on above: Expected: 2023 (Approximate), Expires: 10/21/2023 Start: 04-11-2023 COVID-19 Vaccine ( season) COVID-19 Vaccine ( season) [facility] Start: 04-11-2023 Influenza vaccination Influenza Vacc ine (#1) [facility] Start: 02-18-2023 FUV, Provider: Prosper Hay, Status: Pen, Time: 1:30 PM FUV, Provider: Prosper Hay, Status: Pen, Time: 1:30 PM [facility] Work Phone: Start: 09-12-2022 End: 09-12-2022 Patient encounter procedure 09/12/2022 Office Visit Cardiothoracic Surgery Inocente Deras, DERECK - [employer] 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 [address] [address] [facility] Start: 08-23-2022 End: 10-13-2022 Prepare RBC: 1 Units Prepare RBC: 1 Units Blood Bank Routine Pleural effusion Expected: 08/23/2022, Expires: 10/13/[address] [facility] Comment on above: Expected: 08/23/2022 , Expires: 10/13/2022 Start: 08-23-2022 End: 08-23-2022 Admission to same day surgery center 08/23/2022 Surgery Procedural Sagar Hendrickson MD [address] [place] [id number] RIGHT VATS, PLEURODESIS, POSSIBLE PULMONARY DECORTICATION [41439 (CPT )] [facility] Comment on above: RIGHT VATS, PLEURODE SIS, POSSIBLE PULMONARY DECORTICATION [90679 (CPT )] Start: 08-23-2022 End: 08-23-2022 Decortication pulmonary total separate procedure DECORTICATION LUNG Pleural effusion, not elsewhere classified 08/23/2022 7:00 AM EST [facility] Start: 08-23-2022 Subsequent hospital visit by physician 08/23/2022 Hospital Encounter Procedural Sagar Hendrickson MD [address] [place] [id number] [facility] Start: 08-23-2022 End: 08-23-2022 Thoracoscopy w/pleurodesis THORACOSCOPY DIAGNOSTIC WITH PLEURODESIS Pleural effusion, not elsewhere classified 08/23/2022 7:00 AM EST [facility] Start: 08-20-2022 FUV, Provider: Prosper Hay, Status: Pen, Time: 3:00 PM FUV, Provider: Prosper Hay, Status: Pen, Time: 3:00 PM [facility] Work Phone: Start: 08-15-2022 End: 10-13-2022 Blood type and Crossmatch panel - Blood Type and Screen Lab Routine Pleural effusion Expected: 08/15/2022, Expires: 10/13/[address] [facility] Comment on above: Expected: 08/15/2022 , Expires: 10/13/2022 Start: 08-15-2022 End: 10-13-2022 CBC W Auto Differential panel - Blood CBC auto differential Lab Routine Pleural effusion Expected: 08/15/2022, Expires: 10/13/[address] [facility] Comment on above: Expected: 08/15/2022 , Expires: 10/13/2022 Start: 08-15-2022 End: 10-13-2022 Comprehensive Metabolic Panel with Mg Reflex Comprehensive Metabolic Panel with Mg Reflex Lab Routine Pleural effusion Expected: 08/15/2022, Expires: 10/13/[address] [facility] Work Phone: Comment on above: Expected: 08/15/2022 , Expires: 10/13/2022 Start: 08-15-2022 End: 10-13-2022 XR Chest 2 Views XR chest 2 views Imaging Routine Pleural effusion Expected: 08/15/2022, Expires: 10/13/[address] [facility] Comment on above: Expected: 08/15/2022 , Expires: 10/13/2022 Start: 05-21-2022 FUV, Provider: Prosper Hay, Status: Pen, Time: 2:00 PM FUV, Provider: Prosper Hay, Status: Pen, Time: 2:00 PM [facility]: Start: 04-11-2022 Influenza vaccination Influenza Vacc ine (#1) [facility] Start: 03-27-2022 FUV, Provider: Prosper Hay, Status: Pen, Time: 11:00 AM FUV, Provider: Prosper Hay, Status: Pen, Time: 11:00 AM [facility] [place] Work Phone: Start: 10-16-2021 VIRFUVRUDDY, Provider : Prosper Hay, Status: Pen, Time: 2:00 PM [facility]: Prosper Hay, Status: Pen, Time: 2:00 PM [facility] Work Phone: Start: 02-21-2021 Medicare Annual Well ness Visit Medicare Annual Wellness Visit (AWV) [facility] Start: 06-17-2018 End: 06-17-2018 Appointment Appointment [facility] Work Phone: Start: 06-12-2017 End: 06-12-2017 Follow Up Appt 1 year Follow Up Appt 1 year [facility] Work Phone: Start: 06-12-2017 End: 06-12-2017 PFM PFM [facility] Work Phone: Start: 05-30-2017 End: 05-30-2017 Appointment Appointment [facility] Work Phone: Start: 04-17-2017 End: 04-17-2017 Chest x-ray X-Ray, Chest, PA & Lateral [facility] Work Phone: Start: 04-17-2017 End: 04-17-2017 Echocardiography Echocardiogram (complete) [facility] Work Phone: Start: 04-17-2017 End: 04-17-2017 Follow Up Appt 6 weeks Follow Up Appt 6 weeks [facility] Work Phone: Start: 04-17-2017 End: 04-17-2017 MMM MMM [facility] Work Phone: Start: 04-17-2017 End: 04-17-2017 Appointment Appointment [facility] Work Phone: Start: 04-17-2017 End: 04-17-2017 Chest x-ray X-Ray, Chest, PA & Lateral [facility] Work Phone: Start: 04-17-2017 End: 04-17-2017 Echocardiography Echocardiogram (complete) [facility] Work Phone: Start: 04-17-2017 End: 04-17-2017 Follow Up Appt 6 weeks Follow Up Appt 6 weeks [facility] Work Phone: Start: 04-17-2017 End: 04-17-2017 MMM MMM [facility] Work Phone: Start: 2016 Pneumococcal Vaccine : 65+ Years (1 - PCV) Pneumococcal Vaccine: 65+ Years (1 - PCV) [facility] Start: 2011 RSV patient s and/or patients aged 60+ years (1 - 1-dose 60+ series) RSV patients and/or patients aged 60+ years (1 - 1-dose 60+ series) [facility] Start: 2001 Zoster Vaccines (1 of 2) Zoste r Vaccines (1 of 2) [facility] Start: 1991 Screening for malign ant neoplasm of breast Mammogram [facility] Start: 1973 DTaP/Tdap/Td Vaccine s (1 - Tdap) DTaP/Tdap/Td Vaccines (1 - Tdap) [facility] Start: 1970 DTaP/Tdap/Td Vaccine s (1 - Tdap) DTaP/Tdap/Td Vaccines (1 - Tdap) [facility] Start: 1969 Diabetes mellitus screening Diabetes Screening [facility] Start: 1969 [facility] Start: [facility]-20[facility] COVID-19 Vaccine (#1) COVID-19 Vacci ne (#1) [facility] Start: 1951 Hepatitis B Vaccines (1 of 3 - 3-dose series) Hepatitis B Vaccines (1 of 3 - 3-dose series) [facility] Start: 1951 Lipid panel Lipid Panel [facility] Start: 1950 Medicare Annual Well ness Visit Medicare Annual Wellness Visit (AWV) [facility] Start: 1950 Screening for malign ant neoplasm of colon [facility] Start: 1951 Screening for osteoporosis Bone Density Scan [facility] Start: 1951 Thyroid stimulating hormone measurement TSH Level [facility] Payers Date Payer Category Payer Medicare (Managed Care) [facility] MEDICARE [id number] 2024 Self-pay 2023 Medicare [id number] 2022 Medicare [id number] 2016 Unknown 2016 Unknown [id number] 2016 Medicare [id number] 2016 Medicare [id number] 1951 Unknown [id number] 1951 Unknown [id number] 1951 Unknown [id number] Unknown [id number] Unknown [id number] Unknown [id number] Unknown [id number] Unknown [id number] Unknown [id number] Unknown [id number] Social History Date Type Detail Facility Start: 2023 End: 08-24-2024 Non-smoker Non-smoker [facility] Work Phone: Start: 2023 End: 02-17-2024 Tobacco smoking status NHIS Ex-smoker [facility] History of tobacco use Current smoker [facility] History of tobacco use Cigarette Smoker [facility] Work Phone: Start: 2023 End: 02-17-2024 Alcohol intake Ex-drinker (finding) [facility] Work Phone: Start: 2023 End: 08-24-2024 [facility] Utilities [facility] Work Phone: Has the [employer], or [employer] threatened to shut off services in your home in past 12Mo No [facility] Work Phone: Do you belong to any clubs or organizations such as bahai groups, unions, fraternal or athletic groups, or school groups? Yes [facility] Work Phone: Are you now , , , , never or living with a partner? [facility] Work Phone: How often to you hav e a drink containing alcohol? Never [facility] Work Phone: How many standard drinks containing alcohol do you have on a typical day? Patient does not drink [facility] Work Phone: Do you feel stress - tense, restless, nervous, or anxious, or unable to sleep at night because your mind is troubled all the time - these days [OSQ] To some extent [facility] Work Phone: (I/We) worried christofer er (my/our) food would run out before (I/we) got money to buy more. Never true [facility] Work Phone: Start: 1950 Sex Assigned At Not on file [facility] Start: 02-17-2024 Tobacco use and exposure Smokeless tobacco non-user [facility] Work Phone: Start: 08-05-2022 End: 08-24-2024 Exposure to SARS-CoV-2 (event) Not sure [facility] Start: 07-25-2022 End: 09-12-2022 Alcohol intake Lifetime non-drinker (finding) [facility] NEGATED: Highlighted row - - [facility] Work Phone: Functional Status Date Assessment Result Facility NEGATED: Highlighted row Functional performance Functional status health issues are not documented Disease [facility] Work Phone: Mental Status Date Assessment Result Facility NEGATED: Highlighted row Cognitive function [Interpretation] Cognitive status health issues are not documented Disease [facility] Work Phone: Clinical Notes 06-27-2022 to 08-24-2024 Prosper Hay MD PhD - 08/24/2024 2:00 PM Joel Hay MD PhD - 02/17/2024 1:00 PM Bart Hay MD PhD - 2023 3:30 PM Mary Deras APRN - [employer] 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 - 09/12/2022 10:00 AM EST Note Date & Type Note Facility 08-24-2024 History of Present illness Narrative Subjective Patient ID: Ricarda Oliva is a 74 y.o. female who presents for Follow-up. I am doing okay. HPI: The patient reports that she is doing well. Active Problems Problems Bipolar disorder with depression (296.50) (F31.9) Dysesthesia (782.0) (R20.8) History of bipolar disorder (V11.1) (Z86.59) Paresthesia of bilateral legs (782.0) (R20.2) Sleep disorder (780.50) (G47.9) Past Medical History Problems History of Bipolar I disorder in remission (296.7) (F31.70) Resolved Date: 03 Nov 2020 Encounter for preventive health examination (V70.0) (Z00.00) Resolved Date: History of bipolar disorder (V11.1) (Z86.59) History of hypothyroidism (V12.29) (Z86.39) Surgical History Problems History of Dilation and curettage History of Hammer toe surgery History of Nail avulsion procedure Family History Father Family history of Alzheimer's disease (V17.2) (Z82.0) Daughter Family history of Seizures Maternal Grandfather Family history of Seizures Paternal Cousin FH: Parkinson's disease (V17.2) (Z82.0) Social History Problems Former smoker (V15.82) (Z87.891) No alcohol use Non-smoker (V49.89) (Z78.9) Mental Status Exam General: Appropriately groomed and dressed~In no acute distress and in regular clothes. Appearance: Appears stated age Attitude: Calm, cooperative Behavior: Anxiety & marital relationship and family relationships are improved. Motor Activity: Anxiety & marital relationship and family relationships are improved. Speech: Regular rate, rhythm, volume and tone, spontaneous, fluent. Mood: Anxiety & marital relationship and family relationships are improved. Affect: Anxiety & marital relationship and family relationships are improved. Thought Process: Anxiety & marital relationship and family relationships are improved. Thought Content: Anxiety & marital relationship and family relationships are improved. Thought Perception: Does not endorse auditory or visual hallucinations, does not appear to be responding to hallucinatory stimuli. Cognition: Alert, oriented x3. No deficits noted. Adequate fund of knowledge. No deficit in recent and remote memory. No deficits in attention, concentration or language. Insight: Good, as patient recognizes symptoms of illness and need for recommended treatments. Judgment: Can make reasonable decisions about ordinary activities of daily living and necessary medical care recommendations. Appearance: well-groomed. Build: average. Demeanor: average. Eye Contact: average. Speech: clear. Language: Neurologic language is intact. Fund of Knowledge: aware of current events,~fair fund of knowledge. Delusions: None Reported. Self Harm: None Reported. Aggressive: None Reported. Mood: depressed and anxious in remission. Affect: labile. Orientation: alert,~oriented x3. Manner: cooperative. Thought process: goal-directed. Thought association: displays rational thought process. Content of thought: Ms. RICARDA OLIVA denies any suicidal or homicidal ideation or plans. Abstract/ Rational Thought: intact Memory: grossly intact. Behavior: calm. Attention/Concentration: normal. Cognition: intact. Intelligence Estimate: average. Executive Function: intact. Insight: intact. Judgement: intact. Review of Systems Neurological: Mental Status Exam General: Appropriately groomed and dressed~In no acute distress and in regular clothes. Appearance: Appears stated age Attitude: Calm, cooperative Behavior: Anxiety & marital relationship and family relationships are improved. Motor Activity: Anxiety & marital relationship and family relationships are improved. Speech: Regular rate, rhythm, volume and tone, spontaneous, fluent. Mood: Anxiety & marital relationship and family relationships are improved. Affect: Anxiety & marital relationship and family relationships are improved. Thought Process: Anxiety & marital relationship and family relationships are improved. Thought Content: Anxiety & marital relationship and family relationships are improved. Thought Perception: Does not endorse auditory or visual hallucinations, does not appear to be responding to hallucinatory stimuli. Cognition: Alert, oriented x3. No deficits noted. Adequate fund of knowledge. No deficit in recent and remote memory. No deficits in attention, concentration or language. Insight: Good, as patient recognizes symptoms of illness and need for recommended treatments. Judgment: Can make reasonable decisions about ordinary activities of daily living and necessary medical care recommendations. Appearance: well-groomed. Build: average. Demeanor: average. Eye Contact: average. Speech: clear. Language: Neurologic language is intact. Fund of Knowledge: aware of current events,~fair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 Localized mechanical pleuradesis with Dr. Hendrickson on 08/23/22 POD #20 -stitch removal -incision healing appropriately no signs of infection -pain control-slight nerve pain; oxy as needed; continue tylenol, motrin -no weight restriction; ok to drive once off oxy (patient does not want to right now) -ROM exercises as described in d/c instruction -Path discussed briefly; final path per surgeon documented in this encounter [facility] 01-30-2023 Telephone encounter Note Case reviewed. Refill sent. Please notify patient. Myranda DERECK Harvey CNP 09/09/[address] [facility] 09-09-2022 Miscellaneous Notes Case reviewed. Refill sent. Please notify patient. Myranda DERECK Harvey CNP 09/09/22 Pt states she is still having post op pain. Educated her on post op pain management listed below. She states she takes 1000mg Tylenol TID and only uses the Oxycodone for increased pain at night. Pt is requesting a refill of Oxycodone sent to [facility] in [place]. Please advise. Right minithoracotomy pulmonary decortication visceral pleural biopsy for pathology, Localized mechanical pleuradesis on 08/23/[address] Hendrickson. Post-Operative Pain Management: Over The Counter-Tylenol (acetaminophen) 500 mg 1-2 tablets every 6 hours. No more than 4,000 mg in 24 hour period. Over The Counter-Motrin (ibuprofen) 200-400 mg by mouth every 4-6 hours (or) 600-800mg every 8 hours. No more than 3,200 mg per day. Over The Counter-pain patches (Salon pas) may be used as needed next to incision but not directly on your incision. Ice packs may be applied for 20 minutes, then off for at least 20 minutes before reapplying. Patient is calling in and waking for a refill on the Oxycodone medication. Please call her back. She goes to the [facility] in [place]. Thank you. documented in this encounter [facility] 01-30-2023 Telephone encounter Note Pt states she is still having post op pain. Educated her on post op pain management listed below. She states she takes 1000mg Tylenol TID and only uses the Oxycodone for increased pain at night. Pt is requesting a refill of Oxycodone sent to [facility] in [place]. Please advise. Right minithoracotomy pulmonary decortication visceral pleural biopsy for pathology, Localized mechanical pleuradesis on 08/23/[address] Hendrickson. Post-Operative Pain Management: Over The Counter-Tylenol (acetaminophen) 500 mg 1-2 tablets every 6 hours. No more than 4,000 mg in 24 hour period. Over The Counter-Motrin (ibuprofen) 200-400 mg by mouth every 4-6 hours (or) 600-800mg every 8 hours. No more than 3,200 mg per day. Over The Counter-pain patches (Salon pas) may be used as needed next to incision but not directly on your incision. Ice packs may be applied for 20 minutes, then off for at least 20 minutes before reapplying. [facility] 09-09-2022 Telephone encounter Note Patient is calling in and waking for a refill on the Oxycodone medication. Please call her back. She goes to the [facility] in [place]. Thank you. [facility] 09-03-2022 Telephone encounter Note Spoke with patient. States she has gotten leg swelling multiple times in her life without clear reason. In the past, she has wrapped her legs for 20 minutes and elevated them, which resolved the swelling then. She admits to being more sedentary than normal since surgery. Has tried compression socks in the past, but this makes her neuropathy worse. I encouraged the patient to walk multiple times per day, okay to increase activity while maintaining lifting restrictions. Also okayed patient to wrap legs and elevate them 20 minutes 3x daily, which is what has worked in the past for her. Notify our office if swelling does not improve. DERECK Trotter CNP 09/03/22 [facility] Work Phone: 09-03-2022 Miscellaneous Notes Spoke with patient. States she has gotten leg swelling multiple times in her life without clear reason. In the past, she has wrapped her legs for 20 minutes and elevated them, which resolved the swelling then. She admits to being more sedentary than normal since surgery. Has tried compression socks in the past, but this makes her neuropathy worse. I encouraged the patient to walk multiple times per day, okay to increase activity while maintaining lifting restrictions. Also okayed patient to wrap legs and elevate them 20 minutes 3x daily, which is what has worked in the past for her. Notify our office if swelling does not improve. DERECK Trotter CNP 09/03/22 Patient had a VATS on 08/23/22 Patient calling in and states she has some leg swelling in both and asking what she needs to do Please advise documented in this encounter [facility] 09-03-2022 Telephone encounter Note Patient had a VATS on 08/23/22 Patient calling in and states she has some leg swelling in both and asking what she needs to do Please advise [facility] 09-01-2022 Telephone encounter Note Spoke with patient and over phone. Patient with increased pain this AM but has since resolved with use of oxycodone. Discussed pain medication regimen. Encouraged acetaminophen 1000mg TID and use of oxy PRN. Patient states she really has not been taking much pain medication at all since she has been home. Has 20 oxycodone pills left. SOB resolved as pain controlled. Discussed with patient anticipated recovery. Overall, doing well. Patient to call office with any other questions or concerns. DERECK Berry CNP 09/01/[address] [facility] 09-01-2022 Miscellaneous Notes Spoke with patient and over phone. Patient with increased pain this AM but has since resolved with use of oxycodone. Discussed pain medication regimen. Encouraged acetaminophen 1000mg TID and use of oxy PRN. Patient states she really has not been taking much pain medication at all since she has been home. Has 20 oxycodone pills left. SOB resolved as pain controlled. Discussed with patient anticipated recovery. Overall, doing well. Patient to call office with any other questions or concerns. DERECK Berry CNP 09/01/22 Name of caller requesting page:Ricarda Phone Number of caller: [phone] Facility requesting page: Patient Reason for Page: Severe pain, SOB. Surgery 08/23 for Right thoracotomy, decortication, and pleurodesis. Provider paged: [facility] Name of [place]aged [place] [facility] [place] [place] Placed to #: On-Call Finder Time Page was sent or provider contacted: 10:10 AM Page Content: Pt Dylon Oliva 1950 states she had SX 08/23 for right thoracotomy, decortication, and pleurodesis. Pt c/o severe pain in Right Lung area and SOB. Pt can be reached at [phone] Please advise documented in this encounter [facility] 09-01-2022 Telephone encounter Note Name of caller requesting page:Ricarda Phone Number of caller: [phone] Facility requesting page: Patient Reason for Page: Severe pain, SOB. Surgery 08/23 for Right thoracotomy, decortication, and pleurodesis. Provider paged: [facility] Name of paged provider: [facility] [place] [place] Page Placed to #: On-Call Finder Time Page was sent or provider contacted: 10:10 AM Page Content: Pt Dylon Oliva 1950 states she had SX 08/23 for right thoracotomy, decortication, and pleurodesis. Pt c/o severe pain in Right Lung area and SOB. Pt can be reached at [phone] Please advise [facility] 08-26-2022 Note Attestation signed by Sagar Hendrickson MD at 08/27/2022 9:37 AM I independently saw and evaluated the patient - including reviewing the labs, imaging studies, and available documentation. I agree with the findings and plan of care as documented by the resident/SKID MAN/PHARMACOGNOSIST/PA, unless otherwise noted. Please do not hesitate to contact me/us if you have any questions or concerns. Sagar Hendrickson MD FACS Discharge Summary Ricadra Oliva : 1950 ADMIT DATE: 08/23/2022 DISCHARGE DATE: 08/26/2022 PRIMARY CARE PHYSICIAN: Libby Luque VISIT STATUS: Admission CODE STATUS: Full Code DISCHARGE DIAGNOSES: Principal Problem: Pleural effusion HOSPITAL COURSE: 72 year old female who presented on 08/23 for right thoracotomy, decortication, and pleurodesis. She tolerated the procedure well. She was followed with post-operative CXRs. Chest tube was removed on POD 3 without issue. At time of discharge, she was ambulating, tolerating diet, and pain was controlled SIGNIFICANT DIAGNOSTIC STUDIES: CXRs CONSULTANTS: none RECOMMENDED NEXT STEPS: Follow up in office for chest tube stitch removal DISCHARGE MEDICATIONS: Medication List START taking these medications oxyCODONE 5 MG immediate release tablet Commonly known as: Roxicodone Take 1 tablet (5 mg) by mouth every 6 hours as needed for severe pain (7-10) for up to 7 days. CONTINUE taking these medications aspirin 81 MG EC tablet divalproex 500 MG EC tablet Commonly known as: Depakote levothyroxine 25 MCG tablet Commonly known as: Synthroid, Levoxyl triamcinolone 0.1 % cream Commonly known as: Kenalog Where to Get Your Medications These medications were sent to [facility] - [place], [place] - [address] [place] [address] oxyCODONE 5 MG immediate release tablet DIET: Adult diet Regular ACTIVITY: No heavy lifting. COMPLEXITY OF FOLLOW UP: [x] Moderate Complexity: follow up within 7-14 calendar days (60382) [] Severe Complexity: follow up within 7 calendar days (55751) FOLLOW UP TESTING, PENDING RESULTS OR REFERRALS AT TRANSITIONAL CARE VISIT: [] Yes [x] No PENDING STUDIES: DISPOSITION: Home FACILITY/HOME CARE AGENCY NAME: Follow up with Inocente Deras, DERECK - 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 [address] [id number] Follow up on 09/12/2022 Time: 10:00am, Post-op lung surgery follow up, suture removal, (JESSIE with Dr. Hendrickson) INSTRUCTIONS TO MA/SW: Please call patient on day after discharge (must document patient contacted within 2 business days of discharge). FOLLOW UP QUESTIONS FOR MA/SW: 1. Did you get medications filled and taking them as instructed from discharge? 2. Are you following your discharge instructions from your hospital stay? 3. Please confirm patient is scheduled for a follow up appointment within the above time frame. DISCHARGE TIME: < 30 minutes SIGNED: Sagar Dorman MD 08/26/2022, 5:32 PM [facility] 08-26-2022 Nurse Note Pt. Alert and oriented. PIV's have been removed. v groove cutter has been removed. AVS printed, reviewed, and given to patient. All questions and concerns have been addressed. Pt. Left unit ambulatory. Medications will be picked up from pharmacy. All belongings were given to patient. [facility] 08-26-2022 Nurse Note Pt. Alert and oriented. PIV's have been removed. v groove cutter has been removed. AVS printed, reviewed, and given to patient. All questions and concerns have been addressed. Pt. Left unit ambulatory. Medications will be picked up from pharmacy. All belongings were given to patient. documented in this encounter [facility] 08-26-2022 Note Formatting of this n ote might be different from the original. Pt declining home care services. [facility] 08-26-2022 Note Formatting of this n ote might be different from the original. Pt declining home care services. [facility] 08-26-2022 Miscellaneous Notes Pt declining home care services. Care Managment Initial Assessment Date: 08/26/2022 Patient Name: Ricarda Oliva : 1950 Patient Information Source of Information: Patient Cognition/Language: WFL - Within Functional Limits Permission given to speak with patient assistance representative/caregiver as indicated: Confirmation of Payer with patient/family: Yes Payer Name: Medicare : No Confirmation of Primary Care Physician: Confirmed PCP Name: Dr. Genoveva Luque Seen in last 2 years?: Yes Primary Caregiver: If assistance needed, confirmed caregiver ready, willing and able to care for patient at discharge: Confirmed with: Living Arrangements Current Residence: House Number of Floors 2 Number of Entry Steps: 3 Bed/Bath Levels: Both first floor Facility: Facility Name: Plan to Return: Lives with: Spouse/significant other Support Systems: Spouse/significant other, Family members, Friends/neighbors Activities of Daily Living Ambulation: Independent Bathing/Dressing: Independent Elimination/Continence/Toileting: Independent Feeding: Independent Who Assists with Activities of Daily Living: Instrumental Activities of Daily Living Prescription Coverage: Yes Pharmacy Used: [facility], [place] Medication Management: Independent Transportation/Shopping: Independent Transportation Mode: Car Needs Assistance with Transportation at Discharge: No Meal Preparation: Independent Laundry/Cleaning: Independent Finances/Bill Paying: Independent Communication: Independent Types of Care Services/Equipment Utilized Care Services: Dialysis Type: Durable Medical Equipment: Cane, BiPap Patient's Goal/Discharge Plan Patient expects to be discharged to: home Discharge Planning Actions: No needs identified Patient's Choice Rights and [employer] and Collaborative Relationships Disclosed as Indicated for Post-Acute Care: Interdisciplinary Team Engagement: Social Work Referral for: Additional Information: 72 yo female admitted to H6 s/p Surgery on 08/23/22: R VATS with pleurodesis and decortication. Pt has R chest tube to water seal. Plan to discontinue chest tube today. Met with pt; explained role of tcc. Pt lives with spouse. She is independent adls. She uses cane prn and uses bipap at hs. She denies any issues paying for rx medications. PT eval with recommendation of home care. Spoke with pt and she states she is doing very well and getting up on her own. She declines offer of home care. She denies any other needs from tcc. Anticipate possible discharge to home later today if medically stable. Madhuri Salcedo RN [employer] Opener following case for Discharge Needs. Awaiting x-ray to preform ordered x-ray. Report given to Ivania. Nasal airway removed. Nasal airway placed, left nare. Pt tolerated without difficulty. 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 Oliva is a 72-year-old female referred with multiple right-sided pleural effusion recurrences dating back 9 years. The patient was referred for the after mentioned surgical procedure Complications: None Anesthesia: GETA Procedure in detail: The patient was placed on the operating table in the supine position and general endotracheal anesthesia was induced with a double-lumen ET tube in place the patient was repositioned in the left lateral decubitus position for access to the right chest which was prepped and draped in usual sterile fashion. The 5 mm thoracoscope was initially introduced there was a large rind on the lung which was confluent in the parietal pleura was extremely thick the case is clearly not amenable to thoracoscopic surgery. Therefore, a right minithoracotomy was performed a portion of the seventh rib was removed posteriorly and the retractor positioned and meticulous pulmonary decortication was performed on the right middle and lower lobe I did reinflate the lung and reasonable inflation was evident there was 1 area posterolaterally in the right lower lobe that has significant air leakage on a raw surface to which I applied pro gel glue. The visceral pleura was submitted for pathology. A localized mechanical pleurodesis was performed on the chest wall and diaphragm the right lower lobe on the superior aspect and the entire right upper lobe were not decorticated because the lung was integral with the chest wall with an approximate 1 cm thick pleural adherence again, I did attempt to free this area and was into the parenchyma of the lung and therefore did not proceed in this it area superiorly. 2 containers of talc were then insufflated into the lower chest cavity and a 24 Nigerian Carrie drain was placed in the chest cavity through the separate incision site the ribs were reapproximated with #2 Vicryl and the soft tissues were closed with Vicryl in layers and the skin with Monocryl the patient was extubated having tolerated the procedure well no airleak was evident on the Pleur-evac patient was transferred to the recovery room stable end of report documented in this encounter [facility] 08-26-2022 History of Present illness Narrative Right thoracic carrie drain removed without issue CT SURGERY Progress Note PATIENT NAME: Ricarda Oliva TODAY'S DATE: 08/26/2022 SUBJECTIVE: NAEON. Some nausea with food, improving. Pain controlled. Denies f/c, SOB. States she feels very good. States she has been up and moving without difficulty. OBJECTIVE: VITALS: BP 125/68 (BP Location: Right arm, Patient Position: Lying) Pulse 77 Temp 36.4 C (97.6 F) (Temporal) Resp 18 Ht 4' 10 (1.473 m) Wt 120 lb 12.8 oz (54.8 kg) SpO2 96% BMI 25.25 kg/m INTAKE/OUTPUT: I/O last 3 completed shifts: In: - (0 mL/kg) Out: 2780 (50.7 mL/kg) [Urine:2600 (1.3 mL/kg/hr); Chest Tube:180] Weight: 54.8 kg No intake/output data recorded. REVIEW OF SYSTEMS: Pertinent positives and negatives as per interval history section. PHYSICAL EXAM: CONSTITUTIONAL: No acute distress. Awake, alert, and oriented to person, place, and time. Appears well-nourished. CARDIOVASCULAR: RRR, physiologic S1 S2 LUNGS: R CT ss drainage on water seal without air leak. Resp effort easy and unlabored. Mild right anterolateral subcutaneous emphysema. GI: soft, NTND : No CVA tenderness, no suprapubic tenderness MUSCULOSKELETAL: Normal range of motion and no gross deformity in bilateral upper/lower extremities SKIN: Warm, dry, well-perfused NEUROLOGIC: CN 2-12 grossly intact, no focal neurologic deficits PSYCH: Normal affect, responds to questions appropriately Data: CBC: Recent Labs 08/23/22 0950 08/24/22 0217 WBC 6.8 10.6 HGB 11.9 12.8 HCT 35.1 38.6 PLT 225 317 BMP: Recent Labs 08/23/22 0950 08/24/22 0217 08/24/22 0643 NA 140 135 132* K 4.5 5.9* 4.9 CL 106 103 99 CO2 26 26 24 BUN 32* 29* 33* CREATININE 0.85 0.92 1.03 GLUCOSE 126* 121* 132* Hepatic: No results for input(s): AST, ALT, BILITOT, ALKPHOS in the last 72 hours. No lab exists for component: ALB ASSESSMENT AND PLAN: 72F s/p right pulmonary decortication and pleurodesis 08/23 for recurrent right pleural effusion with lung entrapment. - Place CT back to water seal - Plan to remove chest tube later today - Diet as tolerated - Pain control prn - OOBTC/ambulate - Discharge later today if doing well. Discussed follow up for stitch removal Associated attestation - Sagar Hendrickson MD - 08/26/2022 2:26 PM EST I independently saw and evaluated the patient - including reviewing the labs, imaging studies, and available documentation. I agree with the findings and plan of care as documented by the resident/SKID MAN/PHARMACOGNOSIST/PA, unless otherwise noted. Please do not hesitate to contact me/us if you have any questions or concerns. Sagar Hendrickson MD FACS Chest tube canister appears to have been overturned sometime during the night and blood traveled over to where the water should be leaving the output practically impossible to measure. I can make an educated guess but that's all it will be and I will say somewhere between 20-40 ml I will not document this in I& O's because it is simply an educated guess. Nutrition rescreen completed. Chart reviewed. Patient to be monitored and followed by the diet television technician. CT SURGERY Progress Note PATIENT NAME: Ricarda Oliva TODAY'S DATE: 08/25/2022 SUBJECTIVE: NAEON. Some nausea with food, improving. Pain controlled. Denies f/c, SOB. Sitting up in chair this AM using IS. Ambulating, voiding. OBJECTIVE: VITALS: BP (!) 118/34 Pulse 75 Temp 36.7 C (98.1 F) (Temporal) Resp 19 Ht 4' 10 (1.473 m) Wt 120 lb 12.8 oz (54.8 kg) SpO2 96% BMI 25.25 kg/m INTAKE/OUTPUT: I/O last 3 completed shifts: In: 400 (7.3 mL/kg) [P.O.:400] Out: 1580 (28.8 mL/kg) [Urine:1400 (0.7 mL/kg/hr); Emesis/NG output:50; Chest Tube:130] Weight: 54.8 kg No intake/output data recorded. REVIEW OF SYSTEMS: Pertinent positives and negatives as per interval history section. PHYSICAL EXAM: CONSTITUTIONAL: No acute distress. Awake, alert, and oriented to person, place, and time. Appears well-nourished. CARDIOVASCULAR: RRR, physiologic S1 S2 LUNGS: R CT ss drainage on water seal without air leak. Resp effort easy and unlabored. Mild right anterolateral subcutaneous emphysema. GI: soft, NTND : No CVA tenderness, no suprapubic tenderness MUSCULOSKELETAL: Normal range of motion and no gross deformity in bilateral upper/lower extremities SKIN: Warm, dry, well-perfused NEUROLOGIC: CN 2-12 grossly intact, no focal neurologic deficits PSYCH: Normal affect, responds to questions appropriately Data: CBC: Recent Labs 08/23/22 0611 08/23/22 0950 08/24/22 0217 WBC 6.1 6.8 10.6 HGB 12.4 11.9 12.8 HCT 37.3 35.1 38.6 PLT 283 225 317 BMP: Recent Labs 08/23/22 0950 08/24/22 0217 08/24/22 0643 NA 140 135 132* K 4.5 5.9* 4.9 CL 106 103 99 CO2 26 26 24 BUN 32* 29* 33* CREATININE 0.85 0.92 1.03 GLUCOSE 126* 121* 132* Hepatic: Recent Labs 08/23/22 0611 AST 28 ALT 15 BILITOT 0.4 ALKPHOS 55 ASSESSMENT AND PLAN: 72F s/p right pulmonary decortication and pleurodesis 08/23 for recurrent right pleural effusion with lung entrapment. - Place CT back to -20 suction due to increased subcutaneous emphysema after being on water seal - Diet as tolerated - Pain control prn - OOBTC/ambulate - Ok to transfer to telemetry Michelle Mckinney MD General Surgery, PGY-2 #[id number] PAGING: From -6p (- weekends): Page me at [phone] From 6- (- weekends): - Surg ICU Patients: Page [phone] - Surg Floor Patients: Page [phone] Physical Therapy Facility/Department: [facility] Physical Therapy Initial Evaluation NAME: Ricarda Oliva : 1950 Date of Service: 08/24/2022 Discharge Recommendations: Home with Home health PT, 24 hour supervision or assist PT Equipment Recommendations Equipment Needed: (TBD) Assessment Assessment: Patient is a 72 yo female admitted due to pleural effusion s/p R minithoracotomy for pulmonary decortication and visceral pleura biopsy on 08/23. She is most limited by R-sided rib pain and impaired standing balance. She performed transfers with SBA and ambulated >400 feet without a device with hand-held assist/CGA. Patient lives with her who can assist. Anticipate return home with 24/ supervision and home health PT. Performance Deficits/Impairments: Decreased balance, Decreased strength, Decreased functional mobility , Increased pain Decision Making: Medium Complexity Requires PT Follow-Up: Yes Discharge Recommendations: Home with Home health PT, 24 hour supervision or assist Activity Tolerance Activity Tolerance: Patient Tolerated treatment well Patient Diagnosis(es): The primary encounter diagnosis was Pleural effusion. Diagnoses of Pleural effusion, not elsewhere classified and S/P thoracotomy were also pertinent to this visit. has a past medical history of Bipolar disorder, unspecified (HCC), Chronic back pain, History of psychiatric hospitalization, Hypothyroidism, Lung nodule, Mental disorder, Nonrheumatic mitral (valve) prolapse, FCO (obstructive sleep apnea), and Restless leg syndrome. has a past surgical history that includes Toe Surgery; Thoracentesis; Cataract extraction; and Dilation and curettage of uterus. Restrictions Restrictions/Precautions Restrictions/Precautions: Fall Risk, General Precautions Required Braces or Orthoses?: No Position Activity Restriction Other position/activity restrictions: continuous pulse ox, chest tube Vision/Hearing Cognition/Orientation Overall Cognitive Status: WFL Overall Orientation Status: Within Functional Limits (A&O x4) Subjective General Chart Reviewed: Yes Patient Assessed for Rehabilitation Services: Yes Additional Pertinent Hx: bipolar disorder, chronic back pain Response To Previous Treatment: Not applicable Family / Caregiver Present: No Diagnosis: pleural effusion s/p R minithoracotomy for pulmonary decortication and visceral pleura biopsy on 08/23 Follows Commands: Within Functional Limits Subjective Subjective: RN cleared patient for PT eval. Patient up in chair, pleasant and agreeable to therapy. Pain Assessment Pain Assessment: 0-10 Pain Score: (no rating provided) Pain Type: Acute pain, Surgical pain Pain Location: Rib cage Pain Orientation: Right Pre Treatment Pain Screening Intervention List: Patient able to continue with treatment Orientation Orientation Overall Orientation Status: Within Functional Limits (A&O x4) Social/Functional History Social/Functional History Lives With: Spouse Type of Home: House Home Layout: Two level, Able to Live on Main level with bedroom/bathroom (bedroom and full bath on main level) Home Access: Stairs to enter with rails Entrance Stairs - Number of Steps: 3 Bathroom Shower/Tub: Walk-in shower Bathroom Equipment: Shower chair Home Equipment: Cane Receives Help From: Family ADL Assistance: Independent Homemaking Assistance: Independent Homemaking Responsibilities: Yes (shares with ) Ambulation Assistance: Independent (no device) Transfer Assistance: Independent Additional Comments: is available to assist 03/03 Objective Observation/Palpation Posture: Fair AROM RLE (degrees) RLE AROM: WFL AROM LLE (degrees) LLE AROM : WFL Strength RLE Strength RLE: WFL Comment: at least 3+/5 based on functional observation Strength LLE Strength LLE: WFL Comment: at least 3+/5 based on functional observation Tone RLE RLE Tone: Normotonic Tone LLE LLE Tone: Normotonic Bed mobility Comment: N/T - in chair pre/post session Transfers Sit to Stand: Stand by assistance Stand to sit: Stand by assistance Comment: from chair, cues for hand placement Ambulation Ambulation: Yes Ambulation 1 Surface 1: Level tile Device 1: (hand-held assist) Assistance 1: Contact guard Quality of Gait 1: slow bj Distance (ft) 1: 415 feet Comments 1: patient ambulated on unit with hand-held assist and occasional CGA, no LOB, demo mild dyspnea but able to carry on conversation throughout bout (difficulty getting O2 reading on continuous pulse ox) Balance Posture: Fair Sitting - Static: Good Sitting - Dynamic: Good Standing - Static: Fair Standing - Dynamic: Fair Other exercises Other exercises?: Yes Other exercises 1: IS x10 reps, 500-750 ml, cues for improved technique Plan Times per Week: 5-7 Plan Weeks: 2 Current Treatment Recommendations: Strengthening, ROM, Balance Training, Endurance Training, Functional Mobility Training, Transfer Training, Gait Training, Stair training, Equipment Evaluation, Education, & procurement, Patient/Caregiver Education & Training, Safety Education & Training, Home Exercise Program Safety Safety Devices Safety Devices in Place: Yes Type of Devices: Patient at risk for falls, Nurse notified, Call light within reach, Left in chair Restraints Restraints Initially in Place: No Outcomes Score AM-PAC Score AM-PAC Inpatient Mobility Raw Score: 15 Mobility Inpatient CMS G-Code Modifier: CK Goals Encounter Problems Encounter Problems (Active) Cardiac Patient will be independent with P&C exercises. Start: 08/24/22 Expected End: 09/07/22 Exercise Misc: Patient will demonstrate independence with IS x1000 ml Start: 08/24/22 Expected End: 09/07/22 Mobility Patient will ambulate 500 feet with modified independence and no assistive device in order to improve safety and independence with mobility. Start: 08/24/22 Expected End: 09/07/22 Patient will ascend and descend 3 stairs with one railing and modified independence in order to safely negotiate home. Start: 08/24/22 Expected End: 09/07/22 Transfers Patient will perform bed mobility with modified independence in order to improve independence and prepare for out of bed mobility. Start: 08/24/22 Expected End: 09/07/22 Patient will complete functional transfer with no assistive device with modified independence. Start: 08/24/22 Expected End: 09/07/22 Education Education Given To: Patient Education Provided: Goals, PT Role, Plan of Care, Gait Training, Transfer Training Education Provided Comments: IS use, splinting ribs with pillow while coughing/during mobility Education Method: Verbal Barriers to Learning: None Education Outcome: Verbalized understanding Therapy Time Individual Co-treatment Time In 1052 Time Out 1126 Minutes 34 Timed Code Treatment Minutes: 12 Minutes (FA) Ada Monroy PT This provider wore mask and gloves throughout entire session with patient. Patient s Physical Therapy Plan of Care supervision is transferred to [facility] Rehab Department Physical Therapist. CTS SURGERY Progress Note PATIENT NAME: Ricarda Oliva TODAY'S DATE: 08/24/2022 SUBJECTIVE: NAEON. Tolerated OR yesterday well. Sitting up in chair eating breakfast this AM w/o n/v. Denies f/c, CP/SOB. Pain much improved and controlled. Ambulating, voiding. OBJECTIVE: VITALS: BP 109/57 Pulse 72 Temp 36.7 C (98.1 F) (Temporal) Resp 19 Ht 4' 10 (1.473 m) Wt 122 lb 12.7 oz (55.7 kg) SpO2 100% BMI 25.66 kg/m INTAKE/OUTPUT: I/O last 3 completed shifts: In: 2000 (35.9 mL/kg) [P.O.:760; I.V.:1240 (22.3 mL/kg)] Out: 907 (16.3 mL/kg) [Urine:700 (0.3 mL/kg/hr); Blood:50; Chest Tube:157] Weight: 55.7 kg I/O this shift: In: - Out: 50 [Emesis/NG output:50] REVIEW OF SYSTEMS: Pertinent positives and negatives as per interval history section. PHYSICAL EXAM: CONSTITUTIONAL: No acute distress. Awake, alert, and oriented to person, place, and time. Appears well-nourished. CARDIOVASCULAR: RRR, physiologic S1 S2 LUNGS: CT ss drainage on water seal without air leak. Resp effort easy and unlabored, CTAB GI: soft, NTND : No CVA tenderness, no suprapubic tenderness MUSCULOSKELETAL: Normal range of motion and no gross deformity in bilateral upper/lower extremities SKIN: Warm, dry, well-perfused NEUROLOGIC: CN 2-12 grossly intact, no focal neurologic deficits PSYCH: Normal affect, responds to questions appropriately Data: CBC: Recent Labs 08/23/22 0611 08/23/22 0950 08/24/22216 WBC 6.1 6.8 10.6 HGB 12.4 11.9 12.8 HCT 37.3 35.1 38.6 PLT 283 225 317 BMP: Recent Labs 08/23/22 0950 08/24/22 0217 08/24/22 0643 NA 140 135 132* K 4.5 5.9* 4.9 CL 106 103 99 CO2 26 26 24 BUN 32* 29* 33* CREATININE 0.85 0.92 1.03 GLUCOSE 126* 121* 132* Hepatic: Recent Labs 08/23/22 0611 AST 28 ALT 15 BILITOT 0.4 ALKPHOS 55 ASSESSMENT AND PLAN: 72F s/p right pulmonary decortication and pleurodesis 08/23 for recurrent right pleural effusion with lung entrapment. - Continue CT to water seal - Daily CXR - Diet as tolerated - Pain control prn - OOBTC/ambulate - DC labs - Anticipate DC CT and home tomorrow Michelle Mckinney MD General Surgery, PGY-2 #[id number] PAGING: From 6a-6p (- weekends): Page me at [phone] From 6p-6a (- weekends): - Surg ICU Patients: Page [phone] - Surg Floor Patients: Page [phone] documented in this encounter [facility] 08-26-2022 Note Formatting of this n ote might be different from the original. Care Managment Initial Assessment Date: 08/26/2022 Patient Name: Ricarda Oliva : 1950 Patient Information Source of Information: Patient Cognition/Language: WFL - Within Functional Limits Permission given to speak with patient assistance representative/caregiver as indicated: Confirmation of Payer with patient/family: Yes Payer Name: Medicare : No Confirmation of Primary Care Physician: Confirmed PCP Name: Dr. Genoveva Luque Seen in last 2 years?: Yes Primary Caregiver: If assistance needed, confirmed caregiver ready, willing and able to care for patient at discharge: Confirmed with: Living Arrangements Current Residence: House Number of Floors 2 Number of Entry Steps: 3 Bed/Bath Levels: Both first floor Facility: Facility Name: Plan to Return: Lives with: Spouse/significant other Support Systems: Spouse/significant other, Family members, Friends/neighbors Activities of Daily Living Ambulation: Independent Bathing/Dressing: Independent Elimination/Continence/Toileting: Independent Feeding: Independent Who Assists with Activities of Daily Living: Instrumental Activities of Daily Living Prescription Coverage: Yes Pharmacy Used: [facility], [place] Medication Management: Independent Transportation/Shopping: Independent Transportation Mode: Car Needs Assistance with Transportation at Discharge: No Meal Preparation: Independent Laundry/Cleaning: Independent Finances/Bill Paying: Independent Communication: Independent Types of Care Services/Equipment Utilized Care Services: Dialysis Type: Durable Medical Equipment: Cane, BiPap Patient's Goal/Discharge Plan Patient expects to be discharged to: home Discharge Planning Actions: No needs identified Patient's Choice Rights and [employer] and Collaborative Relationships Disclosed as Indicated for Post-Acute Care: Interdisciplinary Team Engagement: Social Work Referral for: Additional Information: 72 yo female admitted to H6 s/p Surgery on 08/23/22: R VATS with pleurodesis and decortication. Pt has R chest tube to water seal. Plan to discontinue chest tube today. Met with pt; explained role of tcc. Pt lives with spouse. She is independent adls. She uses cane prn and uses bipap at hs. She denies any issues paying for rx medications. PT eval with recommendation of home care. Spoke with pt and she states she is doing very well and getting up on her own. She declines offer of home care. She denies any other needs from tcc. Anticipate possible discharge to home later today if medically stable. Madhuri Salcedo RN [facility] 08-26-2022 Note Formatting of this n ote might be different from the original. Care Managment Initial Assessment Date: 08/26/2022 Patient Name: Ricarda Oliva : 1950 Patient Information Source of Information: Patient Cognition/Language: WFL - Within Functional Limits Permission given to speak with patient assistance representative/caregiver as indicated: Confirmation of Payer with patient/family: Yes Payer Name: Medicare : No Confirmation of Primary Care Physician: Confirmed PCP Name: Dr. Genoveva Luque Seen in last 2 years?: Yes Primary Caregiver: If assistance needed, confirmed caregiver ready, willing and able to care for patient at discharge: Confirmed with: Living Arrangements Current Residence: House Number of Floors 2 Number of Entry Steps: 3 Bed/Bath Levels: Both first floor Facility: Facility Name: Plan to Return: Lives with: Spouse/significant other Support Systems: Spouse/significant other, Family members, Friends/neighbors Activities of Daily Living Ambulation: Independent Bathing/Dressing: Independent Elimination/Continence/Toileting: Independent Feeding: Independent Who Assists with Activities of Daily Living: Instrumental Activities of Daily Living Prescription Coverage: Yes Pharmacy Used: [facility] [place], [place] Medication Management: Independent Transportation/Shopping: Independent Transportation Mode: Car Needs Assistance with Transportation at Discharge: No Meal Preparation: Independent Laundry/Cleaning: Independent Finances/Bill Paying: Independent Communication: Independent Types of Care Services/Equipment Utilized Care Services: Dialysis Type: Durable Medical Equipment: Cane, BiPap Patient's Goal/Discharge Plan Patient expects to be discharged to: home Discharge Planning Actions: No needs identified Patient's Choice Rights and [employer] and Collaborative Relationships Disclosed as Indicated for Post-Acute Care: Interdisciplinary Team Engagement: Social Work Referral for: Additional Information: 72 yo female admitted to H6 s/p Surgery on 08/23/22: R VATS with pleurodesis and decortication. Pt has R chest tube to water seal. Plan to discontinue chest tube today. Met with pt; explained role of tcc. Pt lives with spouse. She is independent adls. She uses cane prn and uses bipap at hs. She denies any issues paying for rx medications. PT eval with recommendation of home care. Spoke with pt and she states she is doing very well and getting up on her own. She declines offer of home care. She denies any other needs from tcc. Anticipate possible discharge to home later today if medically stable. Madhuri Salcedo RN [facility] 08-25-[address] SURGERY Progress Note PATIENT NAME: Ricarda Oliva TODAY'S DATE: 08/25/2022 SUBJECTIVE: NAEON. Some nausea with food, improving. Pain controlled. Denies f/c, SOB. Sitting up in chair this AM using IS. Ambulating, voiding. OBJECTIVE: VITALS: BP (!) 118/34 Pulse 75 Temp 36.7 ?C (98.1 ?F) (Temporal) Resp 19 Ht 4' 10 (1.473 m) Wt 120 lb 12.8 oz (54.8 kg) SpO2 96% BMI 25.25 kg/m? INTAKE/OUTPUT: I/O last 3 completed shifts: In: 400 (7.3 mL/kg) [P.O.:400] Out: 1580 (28.8 mL/kg) [Urine:1400 (0.7 mL/kg/hr); Emesis/NG output:50; Chest Tube:130] Weight: 54.8 kg No intake/output data recorded. REVIEW OF SYSTEMS: Pertinent positives and negatives as per interval history section. PHYSICAL EXAM: CONSTITUTIONAL: No acute distress. Awake, alert, and oriented to person, place, and time. Appears well-nourished. CARDIOVASCULAR: RRR, physiologic S1 S2 LUNGS: R CT ss drainage on water seal without air leak. Resp effort easy and unlabored. Mild right anterolateral subcutaneous emphysema. GI: soft, NTND : No CVA tenderness, no suprapubic tenderness MUSCULOSKELETAL: Normal range of motion and no gross deformity in bilateral upper/lower extremities SKIN: Warm, dry, well-perfused NEUROLOGIC: CN 2-12 grossly intact, no focal neurologic deficits PSYCH: Normal affect, responds to questions appropriately Data: CBC: Recent Labs 08/23/22 0611 08/23/22 0950 08/24/22 0217 WBC 6.1 6.8 10.6 HGB 12.4 11.9 12.8 HCT 37.3 35.1 38.6 PLT 283 225 317 BMP: Recent Labs 08/23/22 0950 08/24/22 0217 08/24/22 0643 NA 140 135 132* K 4.5 5.9* 4.9 CL 106 103 99 CO2 26 26 24 BUN 32* 29* 33* CREATININE 0.85 0.92 1.03 GLUCOSE 126* 121* 132* Hepatic: Recent Labs 08/23/22 0611 AST 28 ALT 15 BILITOT 0.4 ALKPHOS 55 ASSESSMENT AND PLAN: 72F s/p right pulmonary decortication and pleurodesis 08/23 for recurrent right pleural effusion with lung entrapment. - Place CT back to -20 suction due to increased subcutaneous emphysema after being on water seal - Diet as tolerated - Pain control prn - OOBTC/ambulate - Ok to transfer to telemetry Michelle Mckinney MD General Surgery, PGY-2 #[id number] PAGING: From - (-s): Page me at [phone] From 6p-6a (10a-6a weekends): - Surg ICU Patients: Page [phone] - Surg Floor Patients: Page [phone] [facility] 08-25-2022 Note 1. Right-sided chest tube without pneumothorax. 2. Progression of subcutaneous air in the right chest and neck. Report Dictated on Electronically Signed By: Sunday Ralph Electronically Signed Date/Time: 08/25/2022 12:57 AM [facility]OLOGY [facility] 08-24-2022 Note CTS SURGERY Progress Note PATIENT NAME: Ricarda Oliva TODAY'S DATE: 08/24/2022 SUBJECTIVE: NAEON. Tolerated OR yesterday well. Sitting up in chair eating breakfast this AM w/o n/v. Denies f/c, CP/SOB. Pain much improved and controlled. Ambulating, voiding. OBJECTIVE: VITALS: BP 109/57 Pulse 72 Temp 36.7 ?C (98.1 ?F) (Temporal) Resp 19 Ht 4' 10 (1.473 m) Wt 122 lb 12.7 oz (55.7 kg) SpO2 100% BMI 25.66 kg/m? INTAKE/OUTPUT: I/O last 3 completed shifts: In: 2000 (35.9 mL/kg) [P.O.:760; I.V.:1240 (22.3 mL/kg)] Out: 907 (16.3 mL/kg) [Urine:700 (0.3 mL/kg/hr); Blood:50; Chest Tube:157] Weight: 55.7 kg I/O this shift: In: - Out: 50 [Emesis/NG output:50] REVIEW OF SYSTEMS: Pertinent positives and negatives as per interval history section. PHYSICAL EXAM: CONSTITUTIONAL: No acute distress. Awake, alert, and oriented to person, place, and time. Appears well-nourished. CARDIOVASCULAR: RRR, physiologic S1 S2 LUNGS: CT ss drainage on water seal without air leak. Resp effort easy and unlabored, CTAB GI: soft, NTND : No CVA tenderness, no suprapubic tenderness MUSCULOSKELETAL: Normal range of motion and no gross deformity in bilateral upper/lower extremities SKIN: Warm, dry, well-perfused NEUROLOGIC: CN 2-12 grossly intact, no focal neurologic deficits PSYCH: Normal affect, responds to questions appropriately Data: CBC: Recent Labs 08/23/22 0611 08/23/22 0950 08/24/22 0217 WBC 6.1 6.8 10.6 HGB 12.4 11.9 12.8 HCT 37.3 35.1 38.6 PLT 283 225 317 BMP: Recent Labs 08/23/22 0950 08/24/22 0217 08/24/22 0643 NA 140 135 132* K 4.5 5.9* 4.9 CL 106 103 99 CO2 26 26 24 BUN 32* 29* 33* CREATININE 0.85 0.92 1.03 GLUCOSE 126* 121* 132* Hepatic: Recent Labs 08/23/22 0611 AST 28 ALT 15 BILITOT 0.4 ALKPHOS 55 ASSESSMENT AND PLAN: 72F s/p right pulmonary decortication and pleurodesis 08/23 for recurrent right pleural effusion with lung entrapment. - Continue CT to water seal - Daily CXR - Diet as tolerated - Pain control prn - OOBTC/ambulate - DC labs - Anticipate DC CT and home tomorrow Michelle Mckinney MD General Surgery, PGY-2 #[id number] PAGING: From 6a-6p (- weekends): Page me at [phone] From 6p-6a (- weekends): - Surg ICU Patients: Page [phone] - Surg Floor Patients: Page [phone] [facility] 08-23-2022 Hospital Discharge instructions Sagar Dorman MD - 08/23/2022 4:03 PM EST Images from the original note were not included. [facility]: Cardiothoracic Surgery [address] [facility] (T): #[phone] (F): #[phone] After lung surgery, it is common to feel tired up to 6 to 8 weeks. Your chest may hurt and or be swollen for up to 6 weeks. It can also ache or feel stiff for up to 3 months. It is not uncommon to have tightness, itching, numbness, or tingling around the incision for up to 3 months. You may feel short of breath at first after the surgery. It is important to continue the deep-breathing and coughing exercises that you were taught in the hospital at home during your recovery. This helps your body get as much oxygen as possible. The amount of time you will need to recover depends on the surgery you had. You probably will need to take at least 1 to 2 months off work dependent on the work you do. Your Recovery: Activity, Diet, Incisional Care and Exercise Rest when you feel tired. Getting enough sleep will help you recover. Try to walk each day. Start by walking a little more than you did the day before, increasing the amount you walk. Walking boosts blood flow and helps prevent pneumonia and constipation. Do not smoke or allow others to smoke around you. If you need help quitting, talk to your provider about stop-smoking programs and medicines. These can increase your chances of quitting for good. Try to avoid being around people who you know have a cold, the flu, or other illness. Avoid strenuous activities, such as bicycle riding, jogging, weight lifting, or aerobic exercise for at least 4 weeks. Also avoid swimming, tennis, golf, or other activities that could strain your arm and shoulder muscles, during this time. Initial weight restriction is 10lbs for 2 weeks, avoid lifting anything that would make you strain. This may include a child, heavy grocery bags and milk containers, a heavy briefcase or backpack, cat litter or dog food bags, or a vacuum wool cleaner. If your incision is in the front or the side of your chest, hold a pillow over the incision when you cough or take deep breaths. This will support your chest and decrease your pain. No driving for 2 weeks. This is because your arm and shoulder muscles may be stiff after surgery and could make it difficult to steer. You must also be off all narcotic and sedative medications prior to returning to driving. Ok to shower. Avoid any baths or hot-tubs for 3 weeks. Wash you incision daily with warm, soapy water, and pat it dry. Do not scrub your incision(s). Do not apply any lotions or powders, hydrogen peroxide or alcohol on your incision(s). You may cover the area with a gauze bandage if it weeps or rubs against your clothing. Keep the area clean and dry. Diet: You can eat your normal diet. If your stomach is upset, try bland, low-fat foods like plain rice, broiled chicken, toast, and yogurt. Drink plenty of fluids. You may notice that your bowel movements are not regular right after your surgery. This is common. Try to avoid constipation and straining with bowel movements. You may take an over the counter stool softener as needed. If your incision has oralia, these will be removed at your follow-up visit 10-14 days with your provider. Also, sutures from drains/tubes will be removed at this time. Continue to follow discharge stretching exercises outlined below. Start each exercise slowly. Ease off the exercises if you start to have pain. Shoulder Stretch perishable freight inspector a doorway and place one arm against the door frame. Your elbow should be a little higher than your shoulder. Relax your shoulders as you lean forward, allowing your chest and shoulder muscles to stretch. You can also turn your body slightly away from your arm to stretch the muscles even more. Hold for 15 to 30 seconds. Repeat 2 to 4 times with each arm. Shoulder and Chest Stretch While sitting, relax your upper body so you slump slightly in your chair. As you breathe in, straighten your back and open your arms out to the sides. Gently pull your shoulder blades back and downward. Hold for 15 to 30 seconds as your breathe normally. Repeat 2 to 4 times. Overhead stretch Reach up over your head with both arms. Hold for 15 to 30 seconds. Repeat 2 to 4 times. Acute post operative pain management: -Continue to use narcotic/opioid analgesic medication prescribed on discharge from the hospital. If you are prescribed oxycodone/acetaminophen (Percocet) or hydrocodone/acetaminophen ([place]/Vicodin) be cautious when taking additional tylenol. No driving or operating heavy machinery while taking a narcotic/opioid analgesic medication. -Tylenol (acetaminophen) 500 mg 1-2 tablets every 6 hours. No more than 4 grams in 24 hour period. Tylenol is not recommended with liver disorders. -Motrin (ibuprofen) 200-400 mg by mouth every 4-6 hours (or) 600-800mg every 8 hours as needed if not contraindicated. Ibuprofen is not recommended with renal disorders or if you are taking Warfarin (coumadin/jantoven). Maximum dose 3,200 mg per day. -Over the counter pain patches called Salon pas may used as needed next to incision but not on your incision. -Ice packs applied for 20 minutes then off for at least 20 minutes before reapplying. Call your Surgeon or return to the Emergency Room if you experience: -New or increased pain. -New or increased bleeding. -Nausea & vomiting. -Fever & chills. -Shortness of breath. -Chest pain. -Abdominal distention. documented in this encounter [facility] 08-23-2022 Note Formatting of this n ote might be different from the original. [place] Rough Opener following case for Discharge Needs. [facility] 08-23-2022 Note Formatting of this n ote might be different from the original. [place] Rough Opener following case for Discharge Needs. [facility] 08-23-2022 Note Patient: Ricarda Menchaca er Procedure Summary Date: 08/23/22 Room / Location: [address] Operating Room Anesthesia Start: 705 Anesthesia Stop: 911 Procedures: RIGHT VATS, PLEURODESIS, POSSIBLE PULMONARY DECORTICATION (Right: Chest) DECORTICATION LUNG (Right: Chest) Diagnosis: Pleural effusion, not elsewhere classified (Pleural effusion, not elsewhere classified [J90]) Surgeons: Sagar Hendrickson MD Responsible Provider: Elkin Mata MD Anesthesia Type: general anesthesia, regional ASA Status: 3 Anesthesia Type: general anesthesia, regional Vitals Value Taken Time BP 127/61 08/23/2221 Temp 97 08/23/22920 Pulse 53 08/23/22920 Resp 20 08/23/22920 SpO2 100 % 08/23/22920 Vitals shown include unvalidated device data. Anesthesia Post Evaluation Patient location during evaluation: PACU Patient participation: complete - patient participated Level of consciousness: awake and alert Pain management: satisfactory to patient Multimodal analgesia pain management approach Airway patency: patent Two or more strategies used to mitigate risk of obstructive sleep apnea Cardiovascular status: acceptable and hemodynamically stable Respiratory status: acceptable Hydration status: acceptable No notable events documented. MIPS #430 PONV Patient received an inhalational anesthetic (4554F) Patient exhibits three or more risk factors for PONV (4556F) Patient received at leaset 2 prophylactic Rx PONV anti-emtic agents of different classes preop and/or intraop (G9775) MIPS # 424 Perioperative Temperature Management Anesthesia time was 60 minutes or longer (4255F) Anesthesai administered was General (inhalational or TIVA) or Neuraxial block (X0424) At least one body temperature greater than 95.8F/35.5C achieved within the 30 mins immediately prior to or the 15 minutes immediately following anesthesia end time (G9771) MIPS #477 Multimodal Pain Management Not emergent case Patientw was administered multimodal pain management (two or more drugs and/or interventions excluding systemic opioids) in the periopeartive period occurring at some time between 6 hours prior to anesthesia start time until discharged from PACU (G2148) MIPS #404 Anesthesiology Smoking Abstinence The patient is not a current smoker (e.g. cigarette, cigar, pipe, e-cigarette/vaping/marijuana) I completed my handoff to the receiving clinician during which we: 1. Identified the patient 2. Identified the responsible provider 3. Reviewed the pertinent medical history 4. Discussed the surgical course 5. Reviewed intra-op anesthesia management and issues during anesthesia 6. Set expectations for post-procedure period 7. Allowed opportunity for questions and acknowledgement of understanding. [facility] 08-23-2022 Note Patient: Ricarda daily Procedure Summary Date: 08/23/22 Room / Location: [address] Operating Room Anesthesia Start: 705 Anesthesia Stop: 911 Procedures: RIGHT VATS, PLEURODESIS, POSSIBLE PULMONARY DECORTICATION (Right: Chest) DECORTICATION LUNG (Right: Chest) Diagnosis: Pleural effusion, not elsewhere classified (Pleural effusion, not elsewhere classified [J90]) Surgeons: Sagar Hendrickson MD Responsible Provider: Elkin Mata MD Anesthesia Type: general anesthesia, regional ASA Status: 3 Anesthesia Type: general anesthesia, regional Vitals Value Taken Time BP 127/61 08/23/22 0921 Temp 97 08/23/22 0921 Pulse 53 08/23/22 0920 Resp 22 08/23/22 0920 SpO2 100 % 08/23/22 0920 Vitals shown include unvalidated device data. Anesthesia Post Evaluation Patient location during evaluation: PACU Patient participation: complete - patient participated Level of consciousness: awake and alert Pain management: satisfactory to patient Airway patency: patent Dental Injury: no Cardiovascular status: acceptable, blood pressure returned to baseline and hemodynamically stable Respiratory status: acceptable and spontaneous ventilation Hydration status: euvolemic Nausea/Vomiting: controlled No notable events documented. Patient can be discharged once all PACU criteria has been met. [facility] 08-23-2022 Note Formatting of this n ote might be different from the original. Awaiting x-ray to preform ordered x-ray. [facility] 08-23-2022 Note Formatting of this n ote might be different from the original. Awaiting x-ray to preform ordered x-ray. [facility] 08-23-2022 Note Peripheral IV Date/Time: 08/23/2022 7:10 AM Inserted by: DERECK Lew CRNA Placement Needle size: 18 G Laterality: right Location: forearm Site prep: alcohol Technique: anatomical landmarks Attempts: 1 [facility] 08-23-2022 Note Formatting of this n ote might be different from the original. Report given to Ivania. [facility] 08-23-2022 Note Formatting of this n ote might be different from the original. Report given to Ivania. [facility] 08-23-2022 Note Peripheral Block Time Out: 08/23/2022 6:52 AM Start time: 08/23/2022 6:52 AM End time: 08/23/2022 6:55 AM Reason for block: at surgeon's request and post-op pain management Staffing Performed: MINISTER ASSISTANT Resident/MINISTER ASSISTANT: DERECK Forman CRNA Preanesthetic Checklist Completed: patient identified, IV checked, site marked, risks and benefits discussed, surgical consent and timeout performed Region: Truncal Primary: Serratus Anterior Peripheral Block Patient position: supine Prep: ChloraPrep Patient monitoring: heart rate, slate trimmer, continuous pulse ox and continuous capnometry O2: ETT/LMA Laterality: right Injection technique: single-shot Guidance: ultrasound guided -image retained in chart, tip of the needle identified by ultraound during injection. Needle Needle: 22G X 80 mm Additional Notes 08/23/2022 6:52 AM Assessment Injection assessment: negative aspiration for heme, no paresthesia on injection, incremental injection, local visualized surrounding nerve on ultrasound and transient paresthesias Heart rate change: no Slow fractionated injection: yes Required Documentation: Relevant anatomy identified (Nerves, Vessels, Muscles), Negative for blood on aspiration, Local anesthetic injected incrementally with intermittent aspiration every 5 mL, Normal resistance with injection, Local anesthetic spread visualized around nerves or plane., No EKG changes noted and No symptoms of toxicityMedications zznFNIBGcaatn-ibmhxuglnid-ntfjvmp rine (TAP) syringe - Transabdominal Plane 10 mL - 08/23/2022 6:52:00 AM bupivacaine liposome (Exparel) 1.3 % injection - Injection 133 mg - 08/23/2022 6:52:00 AM [facility] 08-23-2022 Note Peripheral Block Time Out: 08/23/2022 6:35 AM Patient location during procedure: pre-op Start time: 08/23/2022 6:35 AM End time: 08/23/2022 6:40 AM Reason for block: procedure for pain and Acute pain service Staffing Performed: MINISTER ASSISTANT Resident/MINISTER ASSISTANT: Reed Laguna APRN - IRINA Preanesthetic Checklist Completed: patient identified, IV checked, site marked, risks and benefits discussed, surgical consent, monitors and equipment checked, pre-op evaluation and timeout performed Region: Truncal Primary: Erector Spinae Peripheral Block Patient position: sitting Prep: ChloraPrep Patient monitoring: heart rate, slate trimmer and continuous pulse ox O2: Nasal cannula Laterality: right Injection technique: single-shot Guidance: ultrasound guided -image retained in chart, tip of the needle identified by ultraound during injection. Local infiltration: lidocaine 2% Needle Needle: 22G X 80 mm Additional Notes 08/23/2022 6:35 AM and midazolam (Versed) injection - IntraVENous 1 mg - 08/23/2022 6:35:00 AM Assessment Injection assessment: negative aspiration for heme and incremental injection Required Documentation: Relevant anatomy identified (Nerves, Vessels, Muscles), Negative for blood on aspiration, Local anesthetic injected incrementally with intermittent aspiration every 5 mL, Normal resistance with injection, Local anesthetic spread visualized around nerves or plane., No EKG changes noted, No symptoms of toxicity and No paresthesias reported by patient during injectionMedications midazolam (Versed) injection - IntraVENous 1 mg - 08/23/2022 6:35:00 PMpqmFCVHFmynwx-zkzgpblcfll-tjdgg phrine (TAP) syringe - Transabdominal Plane 20 mL - 08/23/2022 6:35:00 AM bupivacaine liposome (Exparel) 1.3 % injection - Injection 133 mg - 08/23/2022 6:35:00 AM [facility] 08-23-2022 Note Airway Date/Time: 08/23/2022 7:11 AM Urgency: scheduled Airway not difficult General Information and Staff Patient location during procedure: Procedural Resident/MINISTER ASSISTANT: Michelle Cunningham APRN - MINISTER ASSISTANT Performed: MINISTER ASSISTANT Indications and Patient Condition Indications for airway management: anesthesia and airway protection Sedation level: Asleep Preoxygenated: yes Patient position: sniffing Mask difficulty assessment: 1 - vent by mask Final Airway Details Final airway type: endotracheal airway Successful airway: ETT - double lumen left (35) Cuffed: yes Successful intubation technique: direct laryngoscopy Facilitating devices/methods: intubating stylet Endotracheal tube insertion site: oral Blade: Irena Blade size: #3 Cormack-Lehane Classification: grade IIa - partial view of glottis Placement verified by: chest auscultation, bronchoscopy, capnometry and single lung ventilation Measured from: lips Number of attempts at approach: 1 [facility] 08-23-2022 Note Formatting of this n ote might be different from the original. Nasal airway removed. [facility] 08-23-2022 Note Formatting of this n ote might be different from the original. Nasal airway removed. [facility] 08-23-2022 Note Formatting of this n ote might be different from the original. Nasal airway placed, left nare. Pt tolerated without difficulty. [facility] 08-23-2022 Note Formatting of this n ote might be different from the original. Nasal airway placed, left nare. Pt tolerated without difficulty. [facility] 08-23-2022 Note Formatting of this n ote might be different from the original. 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 Oliva is a 72-year-old female referred with multiple right-sided pleural effusion recurrences dating back 9 years. The patient was referred for the after mentioned surgical procedure Complications: None Anesthesia: GETA Procedure in detail: The patient was placed on the operating table in the supine position and general endotracheal anesthesia was induced with a double-lumen ET tube in place the patient was repositioned in the left lateral decubitus position for access to the right chest which was prepped and draped in usual sterile fashion. The 5 mm thoracoscope was initially introduced there was a large rind on the lung which was confluent in the parietal pleura was extremely thick the case is clearly not amenable to thoracoscopic surgery. Therefore, a right minithoracotomy was performed a portion of the seventh rib was removed posteriorly and the retractor positioned and meticulous pulmonary decortication was performed on the right middle and lower lobe I did reinflate the lung and reasonable inflation was evident there was 1 area posterolaterally in the right lower lobe that has significant air leakage on a raw surface to which I applied pro gel glue. The visceral pleura was submitted for pathology. A localized mechanical pleurodesis was performed on the chest wall and diaphragm the right lower lobe on the superior aspect and the entire right upper lobe were not decorticated because the lung was integral with the chest wall with an approximate 1 cm thick pleural adherence again, I did attempt to free this area and was into the parenchyma of the lung and therefore did not proceed in this it area superiorly. 2 containers of talc were then insufflated into the lower chest cavity and a 24 Nigerian Carrie drain was placed in the chest cavity through the separate incision site the ribs were reapproximated with #2 Vicryl and the soft tissues were closed with Vicryl in layers and the skin with Monocryl the patient was extubated having tolerated the procedure well no airleak was evident on the Pleur-evac patient was transferred to the recovery room stable end of report [facility] [employer] Phone: 08-23-2022 Note Formatting of this n ote might be different from the original. 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 Oliva is a 72-year-old female referred with multiple right-sided pleural effusion recurrences dating back 9 years. The patient was referred for the after mentioned surgical procedure Complications: None Anesthesia: GETA Procedure in detail: The patient was placed on the operating table in the supine position and general endotracheal anesthesia was induced with a double-lumen ET tube in place the patient was repositioned in the left lateral decubitus position for access to the right chest which was prepped and draped in usual sterile fashion. The 5 mm thoracoscope was initially introduced there was a large rind on the lung which was confluent in the parietal pleura was extremely thick the case is clearly not amenable to thoracoscopic surgery. Therefore, a right minithoracotomy was performed a portion of the seventh rib was removed posteriorly and the retractor positioned and meticulous pulmonary decortication was performed on the right middle and lower lobe I did reinflate the lung and reasonable inflation was evident there was 1 area posterolaterally in the right lower lobe that has significant air leakage on a raw surface to which I applied pro gel glue. The visceral pleura was submitted for pathology. A localized mechanical pleurodesis was performed on the chest wall and diaphragm the right lower lobe on the superior aspect and the entire right upper lobe were not decorticated because the lung was integral with the chest wall with an approximate 1 cm thick pleural adherence again, I did attempt to free this area and was into the parenchyma of the lung and therefore did not proceed in this it area superiorly. 2 containers of talc were then insufflated into the lower chest cavity and a 24 Nigerian Carrie drain was placed in the chest cavity through the separate incision site the ribs were reapproximated with #2 Vicryl and the soft tissues were closed with Vicryl in layers and the skin with Monocryl the patient was extubated having tolerated the procedure well no airleak was evident on the Pleur-evac patient was transferred to the recovery room stable end of report [facility] Phone: 08-21-2022 Note Patient: Ricarda daily Procedure Information Date/Time: 08/23/22 0700 Procedures: RIGHT VATS, PLEURODESIS, POSSIBLE PULMONARY DECORTICATION (Right: Chest) DECORTICATION LUNG (Right: Chest) Location: [facility] Operating Room Surgeons: Sagar Hendrickson MD Relevant Problems No relevant active problems Past Medical History: Past Medical History: No date: Bipolar disorder, unspecified (HCC) No date: Chronic back pain No date: History of psychiatric hospitalization No date: Hypothyroidism No date: Lung nodule No date: Mental disorder No date: Nonrheumatic mitral (valve) prolapse No date: FCO (obstructive sleep apnea) No date: Restless leg syndrome Past Surgical History: Past Surgical History: No date: CATARACT EXTRACTION No date: THORACENTESIS No date: TOE SURGERY Social History: TOBACCO: reports that she has quit smoking. She has never used smokeless tobacco. ETOH: reports no history of alcohol use. Social History Substance and Sexual Activity Drug Use Never Family History: Family History Problem Relation Name Age of Onset ? Diabetes Maternal Grandmother ? Cancer Mother ? Hypertension Maternal Grandmother ? Diabetes Mother Screening: unknown Clinical information reviewed: Physical Exam Airway Mallampati: II TM distance: >3 FB Neck ROM: full Mouth Open: normal Cardiovascular Dental (+) Lower Partials Pulmonary Abdominal Anesthesia Plan ASA 3 general anesthesia and regional (Chart info EKG, CBC, CMP, and T&S ordered DOS ) The patient is not a current smoker. Thoracic ERAS FCO Screening Labs: No results found for: WBC, HGB, HCT, MCV, PLT No results found for: NA, K, CL, CO2, BUN, CREATININE, GLUCOSE, CALCIUM, PROT, BILIRUBINFL, ALKPHOS, AST, ALT, EGFR, GLOB Chest Xray 07/22/22 PA and lateral views of the chest were obtained. ?The heart is normal in size. The mediastinal silhouette is normal. ?There is a right pleural effusion with pleural parenchymal scarring and a right infrahilar radiodensity, stable. ?The left lung is relatively clear. There is biapical pleural thickening. ?Arthritic changes of the spine and shoulders are present. ? IMPRESSION: Right pleural effusion and right infrahilar radiodensity which may be vascular in nature. ?An underlying mass or nodule cannot be excluded. ?Consider CT if this has not previously been performed elsewhere. No components found for: LVEF, LVEFMODE No echocardiogram results found for the past 14 days No results found for this or any previous visit. [facility] 08-15-2022 Telephone encounter Note Surg proc orders placed. DERECK Berry CNP 08/15/[address] [facility] Work Phone: 08-15-2022 Miscellaneous Notes Surg proc orders placed. DERECK Berry CNP 08/15/22 Patient is scheduled for Right VATS pleurodesis possible pulmonary decortication on 08/23/22 at 7:[address] Hendrickson told patient they could do all pre-op testing morning of surgery since they live so far away Please place surg proc orders Thank you documented in this encounter [facility] 08-15-2022 Telephone encounter Note Patient is scheduled for Right VATS pleurodesis possible pulmonary decortication on 08/23/22 at 7:[address] Hendrickson told patient they could do all pre-op testing morning of surgery since they live so far away Please place surg proc orders Thank you [facility] 08-15-2022 History of Present illness Narrative Images from the original note were not included. [facility] [address] [facility] [address] Dept: [phone] Dept Loc: [phone] Patient was seen today via Telehealth by agreement and consent in light of the current COVID-19 pandemic. I used the following Telehealth technology: Audio and video capabilities Patient location: Home. This patient encounter is appropriate and reasonable under the circumstances given the patient's particular presentation at this time. The patient has been advised of the potential risks and limitations of this mode of treatment (including but not limited to the absence of in-person examination) and has agreed to be treated in a remote fashion in spite of them. Any and all of the patient's/patient's family's questions on this issue have been answered and I have made no promises or guarantees to the patient. The patient has also been advised to contact this office for worsening conditions or problems, and seek emergency medical treatment and/or call 911 if the patient deems either necessary. The patient stated that they are currently in the [facility]. If the patient is a minor, permission has been obtained by the parent or guardian for the patient to receive medical care at this visit. Visit type: Established Reason for Visit: discuss ct results re recurrent rt pleural effusion and surgical recommendation Assessment and plan 9 yr recurrent right pleural effusion w/ recent chest ct w/ moderate to large rt pleural effusion and lung compression. I reviewed the study ct images and discussed the findings w/ the Zofia's. I recommend a right VATS pleuradesis and possible pulmonary decortication. I reviewed the risks, benefits and alternatives of surgery. Consented. History of Present Illness Ricarda Oliva is a 71 y.o. female known to Dr. Hendrickson for right pleural effusion. Per note, pt was originally referred by Dr. Talavera for recurrent pleural effusions. The patient has battled pleural effusions since 2013. She had a CT chest 06/2019 that noted a right lower lobe pleural based density with a moderate sized pleural effusion, and a nodule in the periphery of the lingular region. She had a PET scan 11/2019 that was negative. She underwent a CT chest 12/04/21 that demonstrated a stable loculated right pleural effusion and round atelectasis. Pt then underwent thoracentesis on 03/11/22. Pathology was negative for malignant cells. Pt had follow up chest xray on 07/08/22 that showed a large right pleural effusion. She underwent another thoracentesis on 07/12/22 with 150 mL removed. A repeat chest xray was performed on 07/22/22 that showed right pleural effusion. Dr. Hendrickson Note 07/25/22 Assessment and plan Asymptomatic right pleural effusion s/p thoracentesis w/ pa/lat cxr w/ minimal effusion and likely scarring and possible minor atelectasis and loculated collections along the hemidiaphragm. I reviewed the cxr images. I discussed the further management of the cxr finding. I recommend chest ct w/ and without contrast to further evaluate the right lung. I will call the pt when the images are available for review. Pt then had CT chest completed on 07/31/22 that showed stable right lung findings. Pt is here now to discuss results. Pt has no complaints at this time. Past Medical History Past Medical History: Diagnosis Date Bipolar disorder, unspecified (HCC) Chronic back pain History of psychiatric hospitalization Hypothyroidism Lung nodule Mental disorder Nonrheumatic mitral (valve) prolapse FCO (obstructive sleep apnea) Restless leg syndrome Past Surgical History Past Surgical History: Procedure Laterality Date CATARACT EXTRACTION THORACENTESIS TOE SURGERY Family History Family History Problem Relation Name Age of Onset Diabetes Maternal Grandmother Cancer Mother Hypertension Maternal Grandmother Diabetes Mother Social History Social History Tobacco Use Smoking status: Former Smokeless tobacco: Never Substance Use Topics Alcohol use: Never Drug use: Never Allergies Allergies Allergen Reactions Gabapentin Meloxicam Leg swelling Codeine Nausea And Vomiting Other reaction(s): Nausea/vomiting, Severe nausea & vomiting Medications Current Outpatient Medications: divalproex (Depakote) 500 MG EC tablet, Take 1 tablet by mouth Nightly., Disp: , Rfl: levothyroxine (Synthroid, Levoxyl) 25 MCG tablet, TAKE 1 TABLET BY MOUTH IN THE MORNING on empty stomach, Disp: , Rfl: prednisoLONE acetate (Pred-Forte) 1 % ophthalmic suspension, put 1 (ONE) drop into left eye THREE TIMES DAILY FOR 7 DAYS then stop, Disp: , Rfl: triamcinolone (Kenalog) 0.1 % cream, Apply to any areas of rash or itching that you can see or feel on the body 1x a day as needed, Disp: , Rfl: Review of Systems Review of Systems All other systems reviewed and are negative. No results found for: WBC, HGB, PLT, NA, K, CREATININE Imaging CT Chest 07/31/22 Chest Xray 07/22/22 PA and lateral views of the chest were obtained. The heart is normal in size. The mediastinal silhouette is normal. There is a right pleural effusion with pleural parenchymal scarring and a right infrahilar radiodensity, stable. The left lung is relatively clear. There is biapical pleural thickening. Arthritic changes of the spine and shoulders are present. IMPRESSION: Right pleural effusion and right infrahilar radiodensity which may be vascular in nature. An underlying mass or nodule cannot be excluded. Consider CT if this has not previously been performed elsewhere. US guided thoracentesis 07/12/22 IMPRESSION: Successful ultrasound-guided right thoracentesis with drainage of 150 mL of clear red fluid. Chest Xray 07/08/22 FINDINGS: The cardiac silhouette is within normal limits. Large right pleural effusion with associated atelectasis/consolidative changes in the lung base. Otherwise the left lung is clear. No left pleural effusion or pneumothorax is identified. The bony structures of the chest are unremarkable as visualized. IMPRESSION: Large right pleural effusion with associated atelectasis/consolidative changes in the lung base. Treatment Team: PCP: Libby Luque MD Pulmonary: David Talavera DO Disclaimer INFORMED CONSENT:The nature and purpose of the proposed treatment or procedure have been discussed. The risks and benefits of the proposed treatment or procedures have been reviewed. Alternatives have been reviewed in addition to the risks and benefits of not receiving treatments or undergoing procedures. Pursuant to this discussion, the patient agrees to undergo the proposed treatment or procedure. Captured images seen in this note from are not a substitute for a comprehensive interpretation of the entire data set as reflected by the interpreting physician with regard to radiology, echocardiography, and other diagnostic images. This note may have been dictated using [employer] Edition 2.6 and/or [employer] Voice Recognition Feature. The document was proofread, however unrecognized voice recognition collections and archives director errors may be present. documented in this encounter [facility] 07-25-2022 Note Orders Placed This E ncounter Procedures CT chest w IV contrast Standing Status: Future Standing Expiration Date: 07/25/2023 Order Specific Question: Record Decision Support information? Answer: No Order Specific Question: Decision Support Exception Answer: Emergency Medical Condition (MA) [1] Order Specific Question: What is the patient's sedation requirement? Answer: No Sedation Creatinine, Serum Standing Status: Future Number of Occurrences: 1 Standing Expiration Date: 07/25/2023 [facility] 07-09-2022 Note Orders Placed This E ncounter Procedures US guided thoracentesis Standing Status: Future Standing Expiration Date: 07/09/2023 Order Specific Question: Is the patient expected to be admitted post-procedure? Answer: No XR chest 2 views Standing Status: Future Standing Expiration Date: 07/09/2023 [facility] 06-27-2022 Note Orders Placed This E ncounter Procedures XR chest 2 views Standing Status: Future Standing Expiration Date: 06/27/2023 [facility] Evaluation note Diagnosis Bipolar disorder, in full remission, most recent episode mixed (CMS/HCC) documented in this encounter [facility] Work Phone: Evaluation note* Diagnosis Bipolar disorder, in full remission, most recent episode mixed (Multi) documented in this encounter [facility] Work Phone: Evaluation note* Diagnosis Pleural effusion- Primary Unspecified pleural effusion Pleural effusion, not elsewhere classified documented in this encounter [facility] note* Diagnosis Pleural effusion- Primary Unspecified pleural effusion Pleural effusion, not elsewhere classified documented in this encounter [facility] note* Diagnosis Pleural effusion- Primary Unspecified pleural effusion Pleural effusion Unspecified pleural effusion Pleural effusion, not elsewhere classified S/P thoracotomy Other postprocedural status [facility] Pleural effusion- Primary Unspecified pleural effusion [facility] Diagnosis Pleural effusion- Primary Unspecified pleural effusion documented in [facility] encounter [facility]* Diagnosis Bipolar disorder, in full remission, most recent episode mixed (Multi) documented in this encounter [facility] Work Phone: History of Present illness Narrative* Ms. RICARDA OLIVA denies any suicidal or homicidal ideation or plans. * The patient reports that she has substantial issues with marital issues and conflicts with her brother and sister. [facility] Work Phone: History of Present illness Narrative* Ms. RICARDA OLIVA denies any suicidal or homicidal ideation or plans. * The patient reports that she has substantial issues with marital issues and conflicts with her brother and sister. [facility] Work Phone: History of Present illness Narrative* Ms. RICARDA OLIVA denies any suicidal or homicidal ideation or plans. * The patient reports that she has substantial issues with marital issues and conflicts with her brother and sister. [address] Work Phone: History of Present illness Narrative* Ms. RICARDA OLIVA denies any suicidal or homicidal ideation or plans. * The patient reports that she has substantial issues with marital issues and conflicts with her brother and sister. [facility] Work Phone: Reason for referral (narrative)* Consultation (Routine) - Authorized Specialty Diagnoses / Procedures Referred By Contac t Referred To Contact Psychiatry Diagnoses Bipolar disorder, in full remission, most recent episode mixed ([facility]) Procedures Follow Up In [place] [id number] [place] [address] Referral ID Status Reason Start Date Expiration Date V isits Requested Visits Authorized [id number] Authorized 2023 08/21/2024 1 1 [facility] Work Phone: Summary Purpose Family History No Family History Records Found natural daughter Name Dates Details Family history of Seizures(7 80.39, R56.9) Status:Active cousin Name Dates Details FH: Parkinson's disease(V17. 2, Z82.0) Status:Active Father Name Dates Details Family history of Alzheimer' s disease(V17.2, Z82.0) Status:Active Grandfather Name Dates Details Family history of Seizures(7 80.39, R56.9) Status:Active natural daughter Name Dates Details Family history of Seizures(7 80.39, R56.9) Status:Active cousin Name Dates Details FH: Parkinson's disease(V17. 2, Z82.0) Status:Active Father Name Dates Details Family history of Alzheimer' s disease(V17.2, Z82.0) Status:Active Grandfather Name Dates Details Family history of Seizures(7 80.39, R56.9) Status:Active Unknown Family Member Name Dates Details Family history of Alzheimer' s disease: Father(V17.2, Z82.0) Status:Active Seizures: Daughter, Maternal Grandfather Status:Active FH: Parkinson's disease: Pat ernal Cousin(V17.2, Z82.0) Status:Active Unknown Family Member Name Dates Details FH: Parkinson's disease: Pat ernal Cousin(V17.2, Z82.0) Status:Active Seizures: Daughter, Maternal Grandfather Status:Active Family history of Alzheimer' s disease: Father(V17.2, Z82.0) Status:Active Unknown Family Member Name Dates Details Family history of Alzheimer' s disease: Father(V17.2, Z82.0) Status:Active Seizures: Daughter, Maternal Grandfather Status:Active FH: Parkinson's disease: Pat ernal Cousin(V17.2, Z82.0) Status:Active Unknown Family Member Name Dates Details Family history of Alzheimer' s disease: Father(V17.2, Z82.0) Status:Active Seizures: Daughter, Maternal Grandfather Status:Active FH: Parkinson's disease: Pat ernal Cousin(V17.2, Z82.0) Status:Active Unknown Family Member Name Dates Details FH: Parkinson's disease: Pat ernal Cousin(V17.2, Z82.0) Status:Active Seizures: Daughter, Maternal Grandfather Status:Active Family history of Alzheimer' s disease: Father(V17.2, Z82.0) Status:Active Unknown Family Member Name Dates Details Family history of Alzheimer' s disease: Father(V17.2, Z82.0) Status:Active Seizures: Daughter, Maternal Grandfather Status:Active FH: Parkinson's disease: Pat ernal Cousin(V17.2, Z82.0) Status:Active Unknown Family Member Name Dates Details Family history of Alzheimer' s disease: Father(V17.2, Z82.0) Status:Active Seizures: Daughter, Maternal Grandfather Status:Active FH: Parkinson's disease: Pat ernal Cousin(V17.2, Z82.0) Status:Active Unknown Family Member Name Dates Details Family history of Alzheimer' s disease: Father(V17.2, Z82.0) Status:Active Seizures: Daughter, Maternal Grandfather Status:Active FH: Parkinson's disease: Pat ernal Cousin(V17.2, Z82.0) Status:Active Unknown Family Member Name Dates Details Family history of Alzheimer' s disease: Father(V17.2, Z82.0) Status:Active Seizures: Daughter, Maternal Grandfather Status:Active FH: Parkinson's disease: Pat ernal Cousin(V17.2, Z82.0) Status:Active Unknown Family Member Name Dates Details Family history of Alzheimer' s disease: Father(V17.2, Z82.0) Status:Active Seizures: Daughter, Maternal Grandfather Status:Active FH: Parkinson's disease: Pat ernal Cousin(V17.2, Z82.0) Status:Active Unknown Family Member Name Dates Details Family history of Alzheimer' s disease: Father(V17.2, Z82.0) Status:Active Seizures: Daughter, Maternal Grandfather Status:Active FH: Parkinson's disease: Pat ernal Cousin(V17.2, Z82.0) Status:Active Unknown Family Member Name Dates Details Family history of Alzheimer' s disease: Father(V17.2, Z82.0) Status:Active Seizures: Daughter, Maternal Grandfather Status:Active FH: Parkinson's disease: Pat ernal Cousin(V17.2, Z82.0) Status:Active Advance Directives No Advanced Directives Records FoundLatest Code Status on File Code Status Date Activated Date Inactivated Comments Full Code 08/23/2022 5:28 AM Latest Code Status on File Code Status Date Activated Date Inactivated Comments Full Code 08/23/2022 5:28 AM 08/26/2022 7:38 PM Latest Code Status on File Code Status Date Activated Date Inactivated Comments Full Code 08/23/2022 5:28 AM 08/26/2022 7:38 PM Chief Complaint * A telephone visit (audio only) between the patient (at the originating site) and the provider (at the distant site) was utilized to provide this telehealth service. * Verbal consent was requested and obtained from RICARDA OLIVA on this date, 05/15/2021 03:00 PM , for a telehealth visit. * An interactive audio and video telecommunication system which permits real time communications between the patient (at the originating site) and provider (at the distant site) was utilized to providethis telehealth service. * Verbal consent was requested and obtained from RICARDA OLIVA on this date, 05/15/2021 03:00 PM , for a telehealth visit. * I have been doing better. * Face - To - Face Visit. * A telephone visit (audio only) between the patient (at the originating site) and the provider (at the distant site) was utilized to provide this telehealth service. * Verbal consent was requested and obtained from RICARDA OLIVA on this date, 10/16/2021 02:00 PM , for a telehealth visit. * I am doing better. * An interactive audio and video telecommunication system which permits real time communications between the patient (at the originating site) and provider (at the distant site) was utilized to providethis telehealth service. * Verbal consent was requested and obtained from RICARDA OLIVA on this date, 10/16/2021 02:00 PM , for a telehealth visit. * I have been doing better. * Face - To - Face Visit. * I am doing better. * Face - To - Face Visit. * I am doing better. Additional Source Comments INFORMATION SOURCE (unrecogn ized section and content) DATE CREATED AUTHOR 02/04/2018 [facility] DATE CREATED AUTHOR 'S ADILIA KAUR 03/03/2020 [facility] ([place]) DATE CREATED AUTHOR AUTHOR'S ORGANIZ ATION 11/17/2020 [facility] DATE CREATED AUTHOR AUTHOR'S ORGANIZ ATION 08/21/2022 [facility] DATE CREATED AUTHOR AUTHOR'S ORGANIZ ATION 12/22/2022 [facility] DATE CREATED AUTHOR AUTHOR'S ORGANIZ ATION 02/27/2023 [facility] DATE CREATED AUTHOR AUTHOR'S ORGANIZ ATION 08/27/2024 [facility] DATE CREATED AUTHOR AUTHOR'S ORGANIZ ATION 09/17/2024 [facility] DATE CREATED AUTHOR AUTHOR'S ORGANIZ ATION 01/27/2025 [facility] Care Teams (unrecognized sec tion and content) Lumber Tripper Relationship Specialty Start Date End Date Libby Luque MD PCP - General 02/18/23 Lumber Tripper Relationship Specialty Start Date End Date Libby Luque MD PCP - General 02/18/23 Lumber Tripper Relationship Specialty Start Date End Date Libby Luque MD [address] [place] [address] PCP - General 02/28/22 Lumber Tripper Relationship Specialty Start Date End Date Libby Luque MD [address] [place] [place] [address] PCP - General 02/28/22 Lumber Tripper Relationship Specialty Start Date End Date Libby Luque MD [address] [place] [place] [address] PCP - General 02/28/22 Lumber Tripper Relationship Specialty Start Date End Date Libby Luque MD [address] [place] [address] PCP - General 02/28/22 Lumber Tripper Relationship Specialty Start Date End Date Libby Luque MD [address] [place] [address] PCP - General 02/28/22 Lumber Tripper Relationship Specialty Start Date End Date Libby Luque MD [address] [place] [address] PCP - General 02/28/22 Lumber Tripper Relationship Specialty Start Date End Date Libby Luque MD [address] [place] [address] PCP - General 02/28/22 Lumber Tripper Relationship Specialty Start Date End Date Libby Luque MD [address] [place] [address] PCP - General 02/28/22 Reason for Visit (unrecogniz ed section and content) Reason Comments Follow-up Reason Onset Date Comments Surgery Scheduling 08/15/2022 Specialty Diagnoses / Procedures Referred By Contac t Referred To Contact Diagnoses Pleural effusion, not elsewhere classified Pleural effusion, not elsewhere classified [J90] Procedures MI THORACOSCOPY W/PLEURODESIS MI DECORTICATION PULMONARY TOTAL SEPARATE PROCEDURE RIGHT VATS, PLEURODESIS, POSSIBLE PULMONARY DECORTICATION DECORTICATION LUNG Sagar Hendrickson MD [address] [place] [address] [address] [place] [address] Referral ID Status Reason Start Date Expiration Date Visits Re quested Visits Authorized [id number] 1 Reason Onset Date Comments Other 09/01/2022 Page Out Reason Onset Date Comments Other 09/03/2022 Reason Onset Date Comments Post-op Problem 09/09/2022 Reason Comments Post-op Scheduled Active and Recently Administ ered Medications (unrecognized section and content) Medication Order 08/24/2022 08/25/2022 08/26/2022 acetaminophen (Tylenol) tablet 1,000 mg 1,000 mg, Oral, 3 times daily, First dose on Fri08/23/22 at 1645, For 3 days, Maximum dose of acetaminophen is 4000 mg from all sources in 24 hours. 0900 (Given - Provider: Angelica Rosales RN)1352 (Given - Provider: Angelica Rosales RN)220 (Given - Provider: Whitney Carrasquillo RN) 0853 (Given - Provider: Meng Pastrana RN)142 (Given - Provider: Latricia Ortiz RN)2054 (Given - Provider: Rakel Garcia LPN) 08 (Given - Provider: Divine Patino RN) aspirin EC tablet 81 mg 81 mg, Oral, Daily, First dose on Fri08/23/22 at 1100, Do not crush, chew, or split. 0900 (Given - Provider: Angelica Rosales RN) 0853 (Given - Provider: Meng Pastrana RN) 08 (Given - Provider: Divine Patino RN) divalproex (Depakote) EC tablet 500 mg 500 mg, Oral, Nightly, First dose on Fri08/23/22 at 2100, Do not crush, chew, or split. 2200 (Given - Provider: Whitney Carrasquillo RN) 2054 (Given - Provider: Rakel Garcia LPN) enoxaparin (Lovenox) syringe 40 mg 40 mg, SubCUTAneous, Daily, First dose on Fri08/23/22 at 1100, Indication of Use: Prophylaxis-DVT/PE 0900 (Given - Provider: Angelica Rosales RN) 0853 (Given - Provider: Meng Pastrana RN) 08 (Given - Provider: Divine Patino RN) levothyroxine (Synthroid, Levoxyl) tablet 25 mcg 25 mcg, Oral, Daily before breakfast, First dose on Fri08/24/22 at 0700, Tube feeding (TF) interaction, obtain physician order to manage, recommend holding TF for 30 minutes before and after dose. 0700 (Given - Provider: Shamar Casas, SAUL) 0637 (Given - Provider: Yoselin Maldonado, SAUL) 0614 (Given - Provider: Sumanth Barbour, SAUL) sodium chloride 0.9% (NS) flush 5-40 mL 5-40 mL, IntraVENous, Every 12 hours scheduled (2 times per day), First dose on Fri08/23/22 at 1100, or Line Patency: Peripheral IV = 5 mL; Midline or Central Line = 10 mL/lumen. If following IV push medication, administer flush at same rate as the IV push. Flush volume is determined by type of infusion therapy being given. For non-viscous solutions use: Peripheral IV = 5 mL Midline or Central Line = 10 mL/lumen For viscous solutions (i.e. blood components, parenteral nutrition, contrast media, or after obtaining blood sample) use: Peripheral IV = 10 mL Midline or Central Line = 20 mL/lumen 0900 (Given - Provider: Angelica Rosales RN)2203 (Given - Provider: Whitney Carrasquillo, SAUL) 0900 (Given - Provider: Meng Pastrana, SAUL)2058 (Given - Provider: Rakel Garcia LPN) 0828 (Given - Provider: Divine Patino RN) PRN Medication Order 08/24/2022 08/25/2022 08/26/2022 melatonin tablet 10 mg 10 mg, Oral, Nightly PRN, sleep, Starting on Fri08/24/22 at 2220 melatonin tablet 5 mg (CANCELED) 5 mg, Oral, Nightly PRN, sleep, Starting on Fri08/23/22 at 1928 2208 (Given - Provider: Whitney Carrasquillo RN) morphine sulfate (PF) injection 2 mg 2 mg, IntraVENous, Every 4 hours PRN, severe pain (7-10), breakthrough surgical pain, Starting on Fri08/23/22 at 1103, If oral and IV narcotics ordered, use oral first and only use IV if oral is ineffective or cannot take oral. Do Not give oral and IV within 1 hour of each other unless specifically ordered. ondansetron (Zofran) injection 4 mg(Linked Group 1) 4 mg, IntraVENous, Every 6 hours PRN, nausea, vomiting, Starting on Fri08/23/22 at 1048, 1st Line. Give IV if patient is unable to take orally. If inadequate response within 60 minutes, proceed to next-line agent or contact provider if no further options ordered. 0739 (Given - Provider: Angelica Rosales RN)1409 (Given - Provider: Eladia Valadez, RN) ondansetron ODT (Zofran-ODT) disintegrating tablet 4 mg(Linked Group 1) 4 mg, Oral, Every 8 hours PRN, nausea, vomiting, Starting on Fri08/23/22 at 1048, 1st Line. If inadequate response within 60 minutes, proceed to next-line agent or contact provider if no further options ordered. Patient should allow tablet to dissolve on tongue. Do not remove from blister pack until just before administering. 0739 (See Alternative - Provider: Angelica Rosales RN)1409 (See Alternative - Provider: Eladia Valadez, SAUL) oxyCODONE (Roxicodone) immediate release tablet 10 mg(Linked Group 2) 10 mg, Oral, Every 4 hours PRN, severe pain (7-10), Starting on Fri08/23/22 at 1102 0214 (Given - Provider: Shamar Casas RN)0740 (Given - Provider: Angelica Rosales RN)1816 (Given - Provider: Angelica Rosales RN) 1058 (See Alternative - Provider: Meng Pastrana RN)2245 (See Alternative - Provider: Sumanth Barbour, SAUL) 1034 (See Alternative - Provider: Divine Patino RN) oxyCODONE (Roxicodone) immediate release tablet 5 mg(Linked Group 2) 5 mg, Oral, Every 4 hours PRN, moderate pain (4-6), Starting on Fri08/23/22 at 1102 0214 (See Alternative - Provider: Shamar Casas RN)0740 (See Alternative - Provider: Angelica Rosales RN)1816 (See Alternative - Provider: Angelica Rosales, SAUL) 1058 (Given - Provider: Meng Pastrana RN)2245 (Given - Provider: Sumanth Barbour RN) 1034 (Given - Provider: Divine Patino RN) sodium chloride 0.9 % infusion 5-250 mL/hr, IntraVENous, PRN, if patient receiving piggyback infusions and maintenance fluids are not ordered OR KVO fluids to protect IV site / prevent frequent line interruptions/ long duration, Starting on Fri08/23/22 at 1048, For piggyback infusion, administer at same rate as piggyback for a total of 25 mL. Enter 25 mL into dose field and piggyback rate into rate field of order. If piggyback is infusing at a rate less than 100 mL/hr, enter 25 mL into dose field and 100 mL/hr into rate field of order. For KVO fluids, enter rate of 20 mL/hr or less into rate field of order. sodium chloride 0.9% (NS) flush 5-40 mL 5-40 mL, IntraVENous, PRN, line care, After every IV line use, Starting on Fri08/23/22 at 1048, or Line Patency: Peripheral IV = 5 mL; Midline or Central Line = 10 mL/lumen. If following IV push medication, administer flush at same rate as the IV push. Flush volume is determined by type of infusion therapy being given. For non-viscous solutions use: Peripheral IV = 5 mL Midline or Central Line = 10 mL/lumen For viscous solutions (i.e. blood components, parenteral nutrition, contrast media, or after obtaining blood sample) use: Peripheral IV = 10 mL Midline or Central Line = 20 mL/lumen Linked Groups Order Group 1: ondansetron ODT (Zofran-ODT) disintegrating tablet 4 mgJump to med 4 mg, Oral, Every 8 hours PRN, nausea, vomiting, Starting on Fri08/23/22 at 1048
1st Line. If inadequate response within 60 minutes, proceed to next-line agent or contact provider if no further options ordered. Patient should allow tablet to dissolve on tongue. Do not remove from blister pack until just before administering.
Or ondansetron (Zofran) injection 4 mgJump to med 4 mg, IntraVENous, Every 6 hours PRN, nausea, vomiting, Starting on Fri08/23/22 at 1048
1st Line. Give IV if patient is unable to take orally. If inadequate response within 60 minutes, proceed to next-line agent or contact provider if no further options ordered.
Group 2: oxyCODONE (Roxicodone) immediate release tablet 5 mgJump to med 5 mg, Oral, Every 4 hours PRN, moderate pain (4-6), Starting on Fri08/23/22 at 1102 Or oxyCODONE (Roxicodone) immediate release tablet 10 mgJump to med 10 mg, Oral, Every 4 hours PRN, severe pain (7-10), Starting on Fri08/23/22 at 1102 FOR RECORDS PERTAINING TO PATIENTS WHO ARE OR HAVE BEEN ENROLLED IN A CHEMICAL DEPENDENCY/SUBSTANCEABUSE PROGRAM, SOME INFORMATION MAY BE OMITTED. This clinical summary was aggregated from multiple sources. Caution should be exercised in using it in the provision of clinical care. This summary normalizes information from multiple sources, and as a consequence, information in this document may materially change the coding, format and clinical context of patient data. In addition, data may be omitted in some cases. CLINICAL DECISIONS SHOULD BE BASED ON THE PRIMARY CLINICAL RECORDS. [employer] [facility]. provides no warranty or guarantee of the accuracy or completeness of information in this document.
== END | disposition home or self-care (01) ==
LOC: PSN 06:51
PROVIDERS: PCP Family Medicine; Referring Provider Nurse Practitioner Acute Care; Visit Provider Nurse Practitioner Acute Care
DX: R06.02 Shortness of breath (principal)
CPT/HCPCS: 94060; 94726; 94729

== ENCOUNTER → 2025-02-03 | Outpatient (CLI) | payer MEDICARE, SELFPAY ==
--- OUTSIDE RECORDS SUMMARY | 2025-02-03 07:00 | XMS RPT_ITS | CCD ---
Author Organization [facility] Care Team Providers Care Client Director Name Role Phone Naveen HUGHES, Patricia Hernandez Unavailable [phone] Naveen RN, Patricia Hernandez Unavailable Naveen HUGHES, Patricia Hernandez Unavailable [phone] DeFinis Harumi Y Unavailable Unavailable DeFinis, Harumi Y Unavailable Unavailable Roof DIRECTOR OF PHYSIOTHERAPY SERVICES, Wiley Villa Unavailable Madhuri White Unavailable Naveen HUGHES, Patricia Hernandez Unavailable Prosper Hay Unavailable Unavailable Inocente Quijano Unavailable Unavailable Prosper Hay Unavailable Unavailable Inocente Quijano Unavailable Unavailable Unavailable Unavailable Unavailable MAYOR, SAGAR Referring Unavailable MAYOR, SAGAR Referring Unavailable MAYOR, SAGAR Referring Unavailable INOCENTE DERAS Attending Unavailable LIBBY LUQUE Primary Care Unavailable MAYORJOCEIN Attending Unavailable MAYORSAGAR Attending Unavailable MAYORJOCEIN Referring Unavailable INOCENTE DERAS Referring Unavailable INOCENTE DERAS Referring Unavailable INOCENTE DERAS Referring Unavailable MENG OCAMPO Referring Unavailable MAYOR SAGAR Admitting Unavailable MAYOR, SAGAR Attending Unavailable Ene DUMONT, Libby Roberto Primary Care Provider Mary Luque MDh Primary Care Provider PROSPER HAY Attending Unavailable LIBBY LUQUE Primary Care Unavailabl e ENE, [facility] Primary Care Unavailabl e PROSPER HAY Attending Unavailable LIBBY LUQUE SERA Primary Care Unavailabl e Ene, [place] [facility] Unavailable Miedel, Libby Attending [facility]available [facility] Referring Unavailable Tnedel, Libby Primary Care Unavailable Miedel, Libby Attending Unavailable Tnedel, Libby Referring Unavailable Tnedel, [place] [facility] Unavailable Miedel, Libby Attending Unavailable Miedel, Libby Referring Unavailable Tned, [place] [facility] Unavailable Brown, David Attending Unavailable Brown, David Referring Unavailable [facility], [place] [facility] Unavailable Camacho DIRECTOR OF PHYSIOTHERAPY SERVICES, Brooke Attending Unavailable Miedel, Libby Referring Unavailable Miedel, Libby Primary Care Unavailable Camacho DIRECTOR OF PHYSIOTHERAPY SERVICES, Brooke Referring Unavailable Camacho DIRECTOR OF PHYSIOTHERAPY SERVICES, Brooke Attending Unavailable Tned, Libby Primary Care Unavailable Camacho DIRECTOR OF PHYSIOTHERAPY SERVICES, Brooke Referring Unavailable Camacho DIRECTOR OF PHYSIOTHERAPY SERVICES, Brooke Attending Unavailable Camacho DIRECTOR OF PHYSIOTHERAPY SERVICES, Brooke Referring Unavailable [facility], [place] [facility] Unavailable Camacho DIRECTOR OF PHYSIOTHERAPY SERVICES, Brooke Attending Unavailable [facility], Libby Referring Unavailable Camacho DIRECTOR OF PHYSIOTHERAPY SERVICES, Brooke Attending Unavailable [facility], [place] [facility] Unavailable Allergies Allergy Classification Reported Allergen(s) Allergy Type Date of Onset Reaction(s) Facility (20 sources) codeine; Translations: [codeine] drug allergy 7 Unknown, Nausea/vomiting , Nausea And Vomiting [facility] Work Phone: (18 sources) Doxepin; Translations: [doxepin] Drug Allergy 4 Unknown YX-Rsaqinewgd-Z [facility] Work Phone: (20 sources) gabapentin; Translations: [GABAPENTIN] Drug Allergy 2 Swelling [facility] (19 sources) meloxicam Drug Allergy 2 [facility] Medications Current Medications Medication Drug Class(es) Dates Sig (Normalized) Sig (Original) docosahexaenoic acid 120 mg / eicosapentaenoic acid 180 mg oral capsule (17 sources) fish oil concent rate ([place]-3) 120-180 mg capsule Take by mouth. Active [...] 400 mg tablet Take by mouth. Active vriqozvc-ker-jdozf acid-biotin (Hair,Skin and Nails,FA-biotin,) 133.3 mcg- 1,666.7 mcg capsule (3 sources) take 1 capsule by mo [facility] once sjtpelow-fhl-kcwdg acid-biotin (Hair,Skin and Nails,FA-biotin,) 133.3 mcg- 1,666.7 mcg capsule Take by mouth. Active fgelkdoq-loh-rch ic acid-biotin (Hair,Skin and Nails,FA-biotin,) 133.3 mcg- [...] Do not crush, chew, or split. B IPQQTYY-S-RWGWQ ACID (3 sources) Start: 06-12-2017 take 1 tablet by mouth once daily STRESS 500 B-COMPLEX TABS One tablet by mouth daily B GMYWIUN-B-OREZO ACID 88427018413 Wiley Tinsley NP BIOFLAVONOID PRODUCTS TABS (3 sources) Start: 06-12-2017 take 1 tablet by mouth once daily YANETH-C TABS One tablet by mouth daily BIOFLAVONOID PRODUCTS TABS 89952138433 Wiley Tinsley NP brompheniramine maleate 0.4 mg/ml / dextromethorphan hydrobromide 2 mg/ml / pseudoephedrine hydrochloride 6 mg/ml oral solution (2 sources) alpha-Adrenergic Agonist, Uncompetitive L-knswcu-U-asparta te Receptor Antagonist, Sigma-1 Agonist Start: 06-03-2022 [...] 08-23-2022 End: 08-23-2022 lactated Ringer's (LR) infusion MXXTMQR-RTEKLMHQP-MIOE MIN D (3 sources) Start: 06-12-2017 take 1 tablet by mouth once daily CALCIUM-MAGNESIUM- VITAMIN D 200-100-33.3 MG-MG-UNIT CAPS One tablet by mouth daily CALCIUM-MAGNESIUM- VITAMIN D 85917722423 Wiley Tinsley NP chlorpheniramine / dextromethorphan (3 sources) Histamine-1 Receptor Antagonist, Uncompetitive B-ktuamq-E-asparta te Receptor Antagonist, Sigma-1 Agonist Start: 06-12-2017 take 1 tablet by mouth once daily EQL LECITHIN 1200 MG CAPS One tablet by mouth daily LECITHIN 02942315128 Wiley Tinsley NP 0.4 ml enoxaparin sodium 100 mg/ml prefilled [...] One tablet by mouth daily FERROUS GLUCONATE 91399955853 Wiley Tinsley NP ferrous sulfate 325 mg oral tablet (20 sources) Start: 06-12-2017 take 1 tablet by mouth once daily FERROUS SULFATE 325 (65 Fe) MG TABS One tablet by mouth daily FERROUS SULFATE 74789602055 Wiley Tinsley DIRECTOR OF PHYSIOTHERAPY SERVICES ferrous sulfate, 325 mg ferrous sulfate, tablet [...] TABS One tablet by mouth daily FUROSEMIDE 53536038954 Patricia Hodge RN Start: 04-16-2017 take 1 tablet by karel th once daily FUROSEMIDE 40 MG TABS One tablet by mouth daily FUROSEMIDE 84962701603 Atif Avalos MD Hair Skin Nails CAPS [...] Active Magnesium TABS R efills: 0 Active BUKKCZJ-TDYTW-LAHP-PASSF-LBA LM (3 sources) Start: 06-12-2017 take 2 tablets by mouth once daily SLEEP CAPS Two tablets by mouth daily GUSTAVO-PASSF-LBALM 24115525242 Wiley Tinsley NP melatonin 5 mg oral tablet (16 sources) Start: 08-24-2022 End: 08-26-2022 melatonin tablet 10 mg Start: 08-23-2022 End: 08-24-2022 melatonin tablet 5 mg Start: 04-16-2017 End: 06-12-2017 take 2 tablets by mouth at bedtime as needed MELATONIN 3 MG TABS Two tablet by mouth at bedtime. As needed MELATONIN 25452363316 Wiley Tinsley NP 1 ml morphine sulfate 4 mg/ml injection [...] One tablet by mouth daily MULTIPLE VITAMINS-MINERALS 26679661267 Wiley Tinsley NP ondansetron ODT (Zofran-ODT) disintegrating [...] TABS One tablet by mouth daily PREDNISONE 03280976518 Atif Avalos MD 5 ml sodium chloride [...] Start: 08-23-2022 End: 08-26-2022 5-250 mL/hr, IntraVENous, [place] N, if patient receiving piggyback infusions and [...] tablet by mouth three times daily TURMERIC 95873996855 Wiley Tinsley DIRECTOR OF PHYSIOTHERAPY SERVICES divalproex sodium 500 mg delayed release oral [...] daily at bedtime DEPAKOTE ER 250 MG [id number]-MPW One tablet by mouth daily @ bedtime DIVALPROEX SODIUM [id number] Patricia Hodge RN Start: 04-16-2017 take 1 tablet by karel th once daily at bedtime DEPAKOTE ER 250 MG PY11K-GQJ One tablet by mouth daily @ bedtime DIVALPROEX SODIUM 03324379823 Patricia L Hodge RN Vitamin B Complex Oral Table [...] 11-03-2020 2023 Chronic Other lower respiratory disease (2 sources) Shortness of breath; Translations: [Shortness of breath] [...] Facility Pulmonary Visit Reporton Pulmonary Visit Report [facility] [place] [address] [place] [address] OFFICE VISIT Date of Service: 01/25/25 MR#: [id number] Acct: [id number] Name: RICARDA OLIVA Rep #: [id number] : 1950 Provider: TENNILLE Camacho Age/Sex: 74/F Location: [facility].W Status: Signed Assessment and Plan Assessment and [...] Additional Comments: This note was generated with [employer] dictation software. It may contain incorrect words, [...] November 2013. She does have greater than 79-bveb-fvwq smoking history. She is having shortness of [...] Acute SOB Chief Complaint: 1 yr FU Mail Agent Required: No DME Vendor: Abraham Accompanied by: Self Allergies codeine Adverse Reaction (Intermediate, Verified 01/25/25 10:48) Vomiting Medications ???Medication ???Instructions ???Recorded ???Confirmed ???Type levothyroxine 25 mcg tablet 25 mcg PO DAILY 02/11/14 01/25/25 History divalproex 500 mg tablet,delayed 500 mg PO QHS 06/17/18 01/25/25 Hi story release (Depakote) Have you fallen in the past year?: Yes [facility] Medical History (Reviewed 01/25/25 @ 10:56 by Brooke Camacho DIRECTOR OF PHYSIOTHERAPY SERVICES, DIRECTOR OF PHYSIOTHERAPY SERVICES-C) Hx of psychiatric hospitalization History of mental [...] not use (more content not included)... Normal [facility] Chest PA and Lateralon 01-19 Chest PA and Lateral [facility] Imaging Services [address] [place], [place] [address] Chest PA and Lateral MR#: [id number] Acct: [id number] Name: RICARDA OLIVA Rep #: [id number] : 1950 F 74 From: Sam Hyde PCP: Dr. Libby Luque MD Status: REG CLI Study: Chest PA and Lateral Date of Exam: 01/19/25 Exam# [id number] Ordering Dr: Brooke Camacho NP DIRECTOR OF PHYSIOTHERAPY SERVICES-C PROCEDURE: CHEST PA AND LATERAL 01/19/2025 REASON [...] acute osseous change is seen. Reading Location: [address] CC: DIRECTOR OF PHYSIOTHERAPY SERVICES-C Brooke Camacho; Dr. Libby Luque MD Software Quality Analyst: Signed Normal [facility] Urine Cultureon 10-02-2024 [facility] Culture exhibits no growth. Normal [facility] Comment on above: Performed By: #### M 100.2200 #### [facility] [address] [facility] [place], [place], [id number] CBC (INCLUDES DIFF/PLT)on Basophils (Bld) [#/Vol] 0.062 10*3/uL Normal 0-200 [facility] Comment on above: Performed By: #### 9 2664, 6399 #### [facility] of [place] [address] Beach Lifeguard: Ken Barcenas MD Basophils/100 WBC (Bld) 1.1 % Normal [facility] Comment on above: Performed By: #### 9 2664, 6399 #### [facility] of [address], [address] [place] [address] Beach Lifeguard: Ken Barcenas MD Eosinophils (Bld) [#/Vol] 0.202 10*3/uL Normal 15-500 [facility] Comment on above: Performed By: #### 9 2664, 6399 #### [facility] of [place] [address] [place] Lifeguard: Ken Barcenas MD Eosinophils/100 WBC (Bld) 3.6 % Normal [facility] Comment on above: Performed By: #### 9 039, 6399 #### [facility] of [place] [address] [place] Lifeguard: Ken Barcenas MD Erythrocyte distribution width (RBC) [Ratio] 13.1 % Normal 11.0-15.0 [facility] Comment on above: Performed By: #### 9 2664, 6399 #### [facility] of [place] [address] [place] Lifeguard: Ken Barcenas MD Hematocrit (Bld) [Volume fraction] 36.6 % Normal 35.0-45.0 [facility] Comment on above: Performed By: #### 9 909, 6399 #### [facility] of [place] [address] [place] Lifeguard: Ken Barcenas MD Hemoglobin (Bld) [Mass/Vol] 12.3 g/dL Normal 11.7-15.5 [facility] Comment on above: Performed By: #### 9 2664, 6399 #### [facility] of [address], [address] [place] [address] [place] Lifeguard: Ken Barcenas MD Lymphocytes (Bld) [#/Vol] 2.106 10*3/uL Normal 850-3900 [facility] Comment on above: Performed By: #### 9 781, 6399 #### [facility] of [address], [address] [place] [address] [place] Lifeguard: Ken Barcenas MD Lymphocytes/100 WBC (Bld) 37.6 % Normal [facility] Comment on above: Performed By: #### 9 2664, 6399 #### [facility] of [place] [address] [place] Lifeguard: Ken Barcenas MD MCH (RBC) [Entitic mass] 33.0 pg Normal 27.0-33.0 [facility] Comment on above: Performed By: #### 9 2664, 6399 #### [facility] [place] [address] [place] Lifeguard: Ken Barcenas MD MCHC (RBC) [Mass/Vol] 33.6 [...] patient's clinical condition. Performed By: #### 9 2664, 6399 #### [facility] of [address], [address] [place] [address] [place] Lifeguard: Ken Barcenas MD MCV (RBC) [Entitic vol] 98.1 fL Normal 80.0-100.0 [facility] Comment on above: Performed By: #### 9 735, 6399 #### [facility] of [address], [address] [place] [address] Beach Lifeguard: Ken Barcenas MD Monocytes (Bld) [#/Vol] 0.549 10*3/uL Normal 200-950 [facility] Comment on above: Performed By: #### 9 2664, 6399 #### [facility] of [place] [address] [place] Lifeguard: Ken Barcenas MD Monocytes/100 WBC (Bld) 9.8 % Normal [facility] Comment on above: Performed By: #### 9 2664, 6399 #### [facility] [place] [address] [place] Lifeguard: Ken Barcenas MD Neutrophils (Bld) [#/Vol] 2.682 10*3/uL Normal 3785-9451 [facility] Comment on above: Performed By: #### 9 2664, 6399 #### [facility] of [place] [address] [place] Lifeguard: Ken Barcenas MD Neutrophils/100 WBC (Bld) 47.9 % Normal [facility] Comment on above: Performed By: #### 9 2664, 6399 #### [facility] [place] [address] [place] Lifeguard: Ken Barcenas MD Platelet mean volume (Bld) [Entitic vol] 11.1 fL Normal 7.5-12.5 [facility] Comment on above: Performed By: #### 9 2664, 6399 #### [facility] [place] [address] [place] Lifeguard: Ken Barcenas MD Platelets (Bld) [#/Vol] 270 10*3/uL Normal 140-400 [facility] Comment on above: Performed By: #### 9 2664, 6399 #### [facility] of [place] [address] [place] Lifeguard: Ken Barcenas MD RBC (Bld) [#/Vol] 3.73 10*6/uL Low 3.80-5.10 [facility] Comment on above: Performed By: #### 9 559, 6399 #### [facility] of [address] [place] [address] Beach Lifeguard: Ken Barcenas MD WBC (Bld) [#/Vol] 5.6 10*3/uL Normal 3.8-10.8 [facility] Comment on above: Performed By: #### 9 450, 6399 #### [facility] of [address], [address] [place] [address] Beach Lifeguard: Ken Barcenas MD COMPREHENSIVE METABOLIC PANE L W/ANION GAPon 09-16-2024 Albumin [Mass/Vol] 4.0 g/dL Normal 3.6-5.1 [facility] Comment on above: Performed By: #### 9 618, 6399 #### [facility] of [place] [address] [place] Lifeguard: Ken Barcenas MD ALP [Catalytic activity/Vol] 48 U/L Normal 37-153 [facility] Comment on above: Performed By: #### 9 008, 6399 #### [facility] of [address], [address] [place] [address] [place] Lifeguard: Ken Barcenas MD ALT [Catalytic activity/Vol] 22 U/L Normal 6-29 [facility] Comment on above: Performed By: #### 9 598, 6399 #### [facility] of [place] [address] [place] Lifeguard: Ken Barcenas MD AST [Catalytic activity/Vol] 22 U/L Normal 10-35 [facility] Comment on above: Performed By: #### 9 885, 6399 #### [facility] of [place] [address] [place] Lifeguard: Ken Barcenas MD Bilirubin [Mass/Vol] 0.5 mg/dL Normal 0.2-1.2 [facility] Comment on above: Performed By: #### 9 724, 6399 #### [facility] of [place] [address] [place] Lifeguard: Ken Barcenas MD Calcium [Mass/Vol] 9.1 mg/dL Normal 8.6-10.4 [facility] Comment on above: Performed By: #### 9 214, 6399 #### [facility] of [address], [address] [place] [address] Beach Lifeguard: Ken Barcenas MD Chloride [Moles/Vol] 103 mmol/L Normal 98-110 [facility] Comment on above: Performed By: #### 9 367, 6399 #### [facility] of [address], [address] [place] [address] Beach Lifeguard: Ken Barcenas MD CO2 [Moles/Vol] 29 mmol/L Normal 20-32 [facility] Comment on above: Performed By: #### 9 941, 6399 #### [facility] of [place] [address] [place] Lifeguard: Ken Barcenas MD Creatinine [Mass/Vol] 0.91 mg/dL Normal 0.60-1.[address] [facility] [address] [facility] Comment on above: Performed By: #### 9 526, 6399 #### [facility] of [address], [address] [place] [address] Beach Lifeguard: Ken Barcenas MD ELECTROLYTE BALANCE 7 mmol/L (calc) Normal 7-17 [facility] Comment on above: Performed By: #### 9 921, 6399 #### [facility] of [place] [address] [place] Lifeguard: Ken Barcenas MD GFR/1.73 sq M.predicted among non-blacks MDRD (S/P/Bld) [Vol rate/Area] 67 mL/min/{1.73_m2} Normal > OR = 60 [facility] Comment on above: Performed By: #### 9 030, 6399 #### [facility] of [place] [address] [place] Lifeguard: Ken Barcenas MD Glucose [Mass/Vol] 86 mg/dL Normal 65-99 [facility] Comment on above: Result Comment: Fasting reference interval Performed By: #### 9 053, 6399 #### [facility] of [place] [address] [place] , [address] [place] [address] Beach Lifeguard: Ken Barcenas MD Potassium [Moles/Vol] 4.8 mmol/L Normal 3.5-5.[address] [facility] Comment on above: Performed By: #### 9 2665, 6399 #### [facility] of [address], [address] [place] [address] Beach Lifeguard: Ken Barcenas MD Protein [Mass/Vol] 6.5 g/dL Normal 6.1-8.1 [facility] Comment on above: Performed By: #### 9 266, 6399 #### [facility] of [address] , [address] [place] [address] Beach Lifeguard: Ken Barcenas MD Sodium [Moles/Vol] 139 mmol/L Normal 135-146 [facility] Comment on above: Performed By: #### 9 2665, 6399 #### [facility] of [place] [address], [address] [place] [address] Beach Lifeguard: Ken Barcenas MD Urea nitrogen [Mass/Vol] 20 mg/dL Normal 7-25 [facility] Comment on above: Performed By: #### 9 2665, 6399 #### [facility] of [address] , [address] [place] [address] Beach Lifeguard: Ken Barcenas MD VALPROIC ACIDon 09-16-2024 VALPROIC ACID 65.3 mg/L Normal 50.0-100.0 [facility] Comment on above: Performed By: #### 9 2665, 6399 #### [facility] of [address] , [address] [place] [address] [place] Lifeguard: Ken Barcenas MD Pulmonary Visit Reporton Pulmonary Visit Report [facility] of [address] [place] [address] OFFICE VISIT Date of Service: 09/02/24 MR#: [id number] Acct: [id number] Name: RICARDA OLIVA Rep #: [id number] : 1950 Provider: TENNILLE Camacho Age/Sex: 74/F Location: [facility].PMW Status: Signed Assessment and Plan Assessment and Plan (1) FCO (obstructive sleep apnea): Status: Chronic Plan: Stable, she is using and benefiting from Pap therapy. No indication for titration study at this time. Contact the office for any new or worsening symptoms in the meantime. Follow-up in April. (2) Nicotine dependence, cigarettes, in remission: Status: Chronic Comment: Greater than 67-wzwz-grri smoking history quit in November 2013 Plan: [...] November 2013. She does have greater than 81-hliv-epem smoking history. She denies any difficulty with [...] the past year?: No PFSH Medical History (Reviewed 09/02/24 @ 10:37 by Brooke Camacho DIRECTOR OF PHYSIOTHERAPY SERVICES, DIRECTOR OF PHYSIOTHERAPY SERVICES-C) Hx of psychiatric hospitalization History of mental disorder Restless leg syndrome Lung nodule FCO (obstructive sleep apnea) Bipolar disorder Chronic back pain Hypothyroidism Nonrheumatic mitral (valve) prolapse Surgical History (Reviewed 09/02/24 @ 10:37 by Brooke Camacho DIRECTOR OF PHYSIOTHERAPY SERVICES, DIRECTOR OF PHYSIOTHERAPY SERVICES-C) History of cataract surgery History of hammer [...] conjunctiva; N (more content not included)... Normal [facility] Urine Cultureon 07-25-2024 [facility] Presumptive E. coli [place] Count 80,000-100,000 Presumptive E. coli: REACTION Ampicillin [...] TMP SMX Islt COLIN <=20 S Normal [facility] Comment on above: Performed By: #### M 100.2200 #### [facility] [address] [facility]. [place], [place], [address] HIP, UNI W/ Pelvis 2-3 Views on 04-06-2024 HIP, UNI W/ Pelvis 2-3 Views [facility] Imaging Services [address] [place], [place] [address] HIP, UNI W/ Pelvis 2-3 Views MR#: [id number] Acct: [id number] Name: RICARDA OLIVA Rep #: [id number] : 1950 F 73 From: Vick tesfaye MD PCP: Dr. Libby Luque MD Status: [facility] Study: HIP, UNI W/ Pelvis 2-3 Views Date of Exam: Exam# [id number] Ordering Dr: Libby Luque MD [id number] STUDY: X-RAY - PELVIS AND LEFT HIP [...] EDT , CC: Dr. Libby Luque MD Software Quality Analyst: Signed Normal [facility] Shoulder min 2 Viewson 04-06 Shoulder min 2 Views [facility] Imaging Services [address] [place] [id number] Shoulder min 2 Views MR#: [id number] Acct: [id number] Name: RICARDA OLIVA Rep #: [id number] : 1950 F 73 From: Francisco Madden MD PCP: Dr. Libby Luque MD Status: REG CLI Study: Shoulder min 2 Views Date of Exam: 04/06/24 Exam# [id number] Ordering Dr: Libby Luque MD [id number] EXAM: XR RIGHT SHOULDER COMPLETE, 2 OR [...] Signed: Francisco Madden MD at 17:04 EDT Reading Location ID and State: [address] [place] [address] Tel , Service support , CC: Dr. Libby Luque MD Software Quality Analyst: Signed Normal [facility] Low Dose CT Lung Screeningon 04-02-[address] Lung Screening [facility] Imaging Services [address] [place] [address] Lung Screening MR#: [id number] Acct: [id number] Name: RICARDA OLIVA Rep #: [id number] : 1950 F 73 From: Eliu morfin DO PCP: Dr. Libby Luque MD Status: [facility] Study: Low Dose CT Lung Screening Date of Exam: 04/02 Exam# [id number] Ordering Dr: David Talavera DO [id number] EXAM: CT CHEST, LUNG CANCER SCREENING WITHOUT [...] David Talavera DO; Dr. Libby Luque MD Software Quality Analyst: Signed Normal [facility] CBC W Auto Differential pane l (Bld)on 03-01-2024 Basophils (Bld) [#/Vol] 0.05 x10*3/uL Normal 0.00-0.[address] [facility] Comment on above: Performed By: #### 5 7021-8 #### CINDY BENJAMIN ([id number]) [facility] ([facility]) [address] [place] [address] Basophils/100 WBC (Bld) 1.0 % Normal 0.0-2.[address] [facility] Comment on above: Performed By: #### 5 7021-8 #### CINDY BENJAMIN ([id number]) [facility] ([facility]) [address] [place] [address] Eosinophils (Bld) [#/Vol] 0.26 x10*3/uL Normal 0.00-0.[address] [facility] Comment on above: Performed By: #### 5 7021-8 #### CINDY BENJAMIN ([id number]) [facility] ([facility]) [address] [place] [address] Eosinophils/100 WBC (Bld) 5.4 % Normal 0.0-6.[address] [facility] Comment on above: Performed By: #### 7021-8 #### CINDY BENJAMIN ([id number]) [facility] ([facility]) [address] [place] [address] Erythrocyte distribution width (RBC) [Ratio] 14.5 % Normal 11.5-14.[address] [facility] Comment on above: Performed By: #### 5 7021-8 #### CINDY BENJAMIN ([id number]) [facility] ([facility]) [address] [place], [place] [address] Hematocrit (Bld) [Volume fraction] 40.0 % Normal 36.0-46.[address] [facility] Comment on above: Performed By: #### 5 7021-8 #### CINDY BENJAMIN ([id number]) [facility] ([facility]) [address] [place] [address] Hemoglobin (Bld) [Mass/Vol] 12.8 g/dL Normal 12.0-16.[address] [facility] Comment on above: Performed By: #### 5 7021-8 #### CINDY BENJAMIN ([id number]) [facility] ([facility]) [address] [place] [address] Immature granulocytes (Bld) [#/Vol] 0.01 x10*3/uL Normal 0.00-0.[address] [facility] Comment on above: Performed By: #### 5 7021-8 #### CINDY BENJAMIN ([id number]) [facility] ([facility]) [address] [place] [address] 08840 Immature granulocytes/100 WBC (Bld) 0.2 % Normal 0.0-0.[address] [facility] Comment on above: Result Comment: Edith ture Granulocyte Count (IG) includes promyelocytes, myelocytes and metamyelocytes but does not include bands. Percent differential counts (%) should be interpreted in the context of the absolute cell counts (cells/UL). Performed By: #### 5 7021-8 #### CINDY BENJAMIN ([id number]) [facility] ([facility]) [address] [place] [address] Lymphocytes (Bld) [#/Vol] 1.81 x10*3/uL Normal 0.80-3.[address] [facility] Comment on above: Performed By: #### 5 7021-8 #### CINDY BENJAMIN ([id number]) [facility] ([facility]) [address] [address] Lymphocytes/100 WBC (Bld) 37.8 % Normal 13.0-44.[address] [facility] Comment on above: Performed By: #### 5 7021-8 #### CINDY BENJAMIN ([id number]) [facility] ([facility]) [address] [place] [address] 37850 MCH (RBC) [Entitic mass] 31.1 pg Normal 26.0-34.[address] [facility] Comment on above: Performed By: #### 5 7021-8 #### CINDY BENJAMIN ([id number]) [facility] ([facility]) [address] [place] [address] 40655 MCHC (RBC) [Mass/Vol] 32.0 g/dL Normal 32.0-36.0 [facility] Comment on above: Performed By: #### 5 7021-8 #### CINDY BENJAMIN ([id number]) [facility] ([facility]) [address] [place] [address] 22769 MCV (RBC) [Entitic vol] 97 fL Normal 80-[address] [facility] Comment on above: Performed By: #### 5 7021-8 #### CINDY BENJAMIN ([id number]) [facility] ([facility]) [address] [place] [address] 08758 Monocytes (Bld) [#/Vol] 0.53 x10*3/uL Normal 0.05-0.[address] [facility] Comment on above: Performed By: #### 5 7021-8 #### CINDY BENJAMIN ([id number]) [facility] ([facility]) [address] [place] [address] 93246 Monocytes/100 WBC (Bld) 11.1 % Normal 2.0-10.[address] [facility] Comment on above: Performed By: #### 5 7021-8 #### CINDY BENJAMIN ([id number]) [facility] ([facility]) [address] [place] [address] 02837 Neutrophils (Bld) [#/Vol] 2.13 x10*3/uL Normal 1.60-5.[address] [facility] Comment on above: Result Comment: Perc ent differential counts (%) should be interpreted in the context of the absolute cell counts (cells/uL). Performed By: #### 5 7021-8 #### CINDY BENJAMIN ([id number]) [facility] ([facility]) [address] [place] [address] 64671 Neutrophils/100 WBC (Bld) 44.5 % Normal 40.0-80.[address] [facility] Comment on above: Performed By: #### 5 7021-8 #### CINDY BENJAMIN ([id number]) [facility] ([facility]) [address] [place] [address] 43963 Nucleated RBC/100 WBC (Bld) [Ratio] 0.0 /100 WBCs Normal 0.0-0.[address] [facility] Comment on above: Performed By: #### 5 7021-8 #### CINDY BENJAMIN ([id number]) [facility] ([facility]) [address] [place] [address] 69482 Platelets (Bld) [#/Vol] 260 x10*3/uL Normal 150-[address] [facility] Comment on above: Performed By: #### 5 7021-8 #### CINDY BENJAMIN ([id number]) [facility] ([facility]) [address] [place] [address] 87450 RBC (Bld) [#/Vol] 4.12 x10*6/uL Normal 4.00-5.20 [facility] Comment on above: Performed By: #### 5 7021-8 #### CINDY BENJAMIN ([id number]) [facility] ([facility]) [address] [place] [address] WBC (Bld) [#/Vol] 4.8 x10*3/uL Normal 4.4-11.3 [facility] Comment on above: Performed By: #### 5 7021-8 #### CINDY BENJAMIN ([id number]) [facility] ([facility]) [address] [place] [address] Comprehensive metabolic 2000 panelon 03-01-2024 Albumin BCP dye [Mass/Vol] 4.1 g/dL Normal 3.4-5.[address] [facility] Comment on above: Performed By: #### 2 4323-8 #### CINDY BENJAMIN ([id number]) [facility] ([facility]) [address] [address] ALP [Catalytic activity/Vol] 54 U/L Normal 33-[address] [facility] Comment on above: Performed By: #### 2 4323-8 #### CINDY BENJAMIN ([id number]) [facility] ([facility]) [address] [address] ALT With P-5'-P [Catalytic activity/Vol] 12 U/L Normal 7-[address] [facility] Comment on above: Result Comment: Melida ents treated with Sulfasalazine may generate falsely decreased results for ALT. Performed By: #### 2 4323-8 #### CINDY BENJAMIN ([id number]) [facility] ([facility]) [address] [place] [address] 46432 Anion gap [Moles/Vol] 10 mmol/L Normal 10-20 [facility] Comment on above: Performed By: #### 2 4323-8 #### CINDY BENJAMIN ([id number]) [facility] ([facility]) [address] [place] [address] 86510 AST With P-5'-P [Catalytic activity/Vol] 17 U/L Normal 9-[address] [facility] Comment on above: Performed By: #### 2 4323-8 #### CINDY BENJAMIN ([id number]) [facility] ([facility]) [address] [place] [address] 86069 Bilirubin [Mass/Vol] 0.5 mg/dL Normal 0.0-1.2 [facility] Comment on above: Performed By: #### 2 4323-8 #### CINDY BENJAMIN ([id number]) [facility] ([facility]) [address] [place] [address] 19407 Calcium [Mass/Vol] 9.4 mg/dL Normal 8.6-10.3 [facility] Comment on above: Performed By: #### 2 4323-8 #### CINDY BENJAMIN ([id number]) [facility] ([facility]) [address] [place] [address] 13462 Chloride [Moles/Vol] 104 mmol/L Normal 98-107 [facility] Comment on above: Performed By: #### 2 4323-8 #### CINDY BENJAMIN ([id number]) [facility] ([facility]) [address] [place] [address] 31113 CO2 [Moles/Vol] 30 mmol/L Normal 21-32 [facility] Comment on above: Performed By: #### 2 4323-8 #### CINDY BENJAMIN ([id number]) [facility] ([facility]) [address] [place] [address] 66836 Creatinine [Mass/Vol] 0.97 mg/dL Normal 0.50-1.05 [facility] Comment on above: Performed By: #### 2 4323-8 #### CINDY BENJAMIN ([id number]) [facility] ([facility]) [address] [place] [address] 49824 Glomerular filtration rate/1.73 sq M.predicted 62 mL/min/1.73m*2 Normal >[address] [facility] Comment on above: Result Comment: Calc ulations of estimated GFR are performed using the 2020 CKD-EPI Study Refit equation without the race variable for the IDMS-Traceable creatinine methods. https://jasn.asnjournals.org/content//ASN.514166 1459 Performed By: #### 2 4323-8 #### CINDY BENJAMIN ([id number]) [facility] ([facility]) [address] [place] [address] 61763 Glucose [Mass/Vol] 89 mg/dL Normal 74-99 [facility] Comment on above: Performed By: #### 2 4323-8 #### CINDY BENJAMIN ([id number]) [facility] ([facility]) [address] [place] [address] 25997 Potassium [Moles/Vol] 5.2 mmol/L Normal 3.5-5.3 [facility] Comment on above: Performed By: #### 2 4323-8 #### CINDY BENJAMIN ([id number]) [facility] ([facility]) [address] [place] [address] 78674 Protein [Mass/Vol] 6.3 g/dL Low 6.4-8.2 [facility] Comment on above: Performed By: #### 2 4323-8 #### CINDY BENJAMIN ([id number]) [facility] ([facility]) [address] [place] [address] 04766 Sodium [Moles/Vol] 139 mmol/L Normal 136-145 [facility] Comment on above: Performed By: #### 2 4323-8 #### CINDY BENJAMIN ([id number]) [facility] ([facility]) [address] [place] [address] 00303 Urea nitrogen [Mass/Vol] 27 mg/dL High 6-[address] [facility] Comment on above: Performed By: #### 2 4323-8 #### CINDY BENJAMIN ([id number]) [facility] ([facility]) [address] [place] [address] 66632 Valproateon 03-01-2024 Valproate [Mass/Vol] 62 ug/mL Normal 50-100 [facility] Comment on above: Performed By: #### 4 086-5 #### CINDY BENJAMIN ([id number]) [facility] ([facility]) [address] [place] [address] 27344 CBC AND DIFFERENTIALon 02-26 % AUTOMATED IMMATURE GRAN 0.2 % Normal 0.0 - 0.9 [facility] Comment on above: Result Comment: Edith ture Granulocyte Count (IG) includes promyelocytes, myelocytes and metamyelocytes but does not include bands. Percent differential counts (%) should be interpreted in the context of the absolute cell counts (cells/L). Performed By: #### C BCDF #### [address] [address] Basophils (Bld) [#/Vol] 0.05 10*3/uL Normal 0.00 - 0.10 [facility] Comment on above: Performed By: #### C BCDF #### [place] [id number] Basophils/100 WBC (Bld) 1.1 % Normal 0.0 - 2.0 [facility] Comment on above: Performed By: #### C BCDF #### [address] [address] Eosinophils (Bld) [#/Vol] 0.29 10*3/uL Normal 0.00 - 0.40 [facility] Comment on above: Performed By: #### C BCDF #### [address] [address] Eosinophils/100 WBC (Bld) 6.1 % Normal 0.0 - 6.0 [facility] Comment on above: Performed By: #### C BCDF #### [address] [address] Erythrocyte distribution width (RBC) [Ratio] 14.9 % High 11.5 - 14.5 [facility] Comment on above: Performed By: #### C BCDF #### [address] [address] Hematocrit (Bld) [Volume fraction] 39.3 % Normal 36.0 - 46.0 [facility] Comment on above: Performed By: #### C BCDF #### [address] [address] Hemoglobin (Bld) [Mass/Vol] 12.4 g/dL Normal 12.0 - 16.0 [facility] Comment on above: Performed By: #### C BCDF #### [address] [address] Lymphocytes (Bld) [#/Vol] 1.73 10*3/uL Normal 0.80 - 3.00 [facility] Comment on above: Performed By: #### C BCDF #### [address] [address] Lymphocytes/100 WBC (Bld) 36.7 % Normal 13.0 - 44.0 [facility] Comment on above: Performed By: #### C BCDF #### [address] 83165 MCHC (RBC) [Mass/Vol] 31.6 g/dL Low 32.0 - 36.0 [facility] Comment on above: Performed By: #### C BCDF #### [address] 61900 MCV (RBC) [Entitic vol] 96 fL Normal 80 - 100 [facility] Comment on above: Performed By: #### C BCDF #### [address] 84961 Monocytes (Bld) [#/Vol] 0.46 10*3/uL Normal 0.05 - 0.80 [facility] Comment on above: Performed By: #### C BCDF #### [address] 87827 Monocytes/100 WBC (Bld) 9.7 % Normal 2.0 - 10.0 [facility] Comment on above: Performed By: #### C BCDF #### [address] [address] Neutrophils (Bld) [#/Vol] 2.18 10*3/uL Normal 1.60 - 5.50 [facility] Comment on above: Result Comment: Perc ent differential counts (%) should be interpreted in the context of the absolute cell counts (cells/L). Performed By: #### C BCDF #### [address] [address]32[address] Neutrophils/100 WBC (Bld) 46.2 % Normal 40.0 - 80.0 [facility] Comment on above: Performed By: #### C BCDF #### [address] 8[address] Platelets (Bld) [#/Vol] 288 10*3/uL Normal 150 - 450 [facility] Comment on above: Performed By: #### C BCDF #### [address] 05412 RBC 4.08 x10E12/L Normal 4.00 - 5.20 [facility] Comment on above: Performed By: #### C BCDF #### [address] [address] WBC (Bld) [#/Vol] 4.7 10*3/uL Normal 4.4 - 11.3 [facility] Comment on above: Performed By: #### C BCDF #### [address] [address] COMPREHENSIVE PANELon 2022 Albumin [Mass/Vol] 4.0 g/dL Normal 3.4 - 5.0 [facility] Comment on above: Performed By: #### C MP #### [address] [address] ALP [Catalytic activity/Vol] 61 U/L Normal 33 - 136 [facility] Comment on above: Performed By: #### C MP #### [address] [address]251 ALT [Catalytic activity/Vol] 14 U/L Normal 7 - 45 [facility] Comment on above: Result Comment: Melida ents treated with Sulfasalazine may generate falsely decreased results for ALT. Performed By: #### C MP #### [address] [address]289 Anion gap [Moles/Vol] 9 mmol/L Low 10 - 20 [facility] Comment on above: Performed By: #### C MP #### [address] 24767 AST [Catalytic activity/Vol] 15 U/L Normal 9 - 39 [facility] Comment on above: Performed By: #### C MP #### [address] 8[address] Bilirubin [Mass/Vol] 0.5 mg/dL Normal 0.0 - 1.2 [facility] Comment on above: Performed By: #### C MP #### [address] [address] Calcium [Mass/Vol] 9.2 mg/dL Normal 8.6 - 10.3 [facility] Comment on above: Performed By: #### C MP #### [address] 95185 Chloride [Moles/Vol] 105 mmol/L Normal 98 - 107 [facility] Comment on above: Performed By: #### C MP #### [address] [address] Creatinine [Mass/Vol] 1.00 mg/dL Normal 0.50 - 1.05 [facility] Comment on above: Performed By: #### C MP #### [address] [address] GFR/1.73 sq M.predicted among non-blacks MDRD (S/P/Bld) [Vol rate/Area] 60 mL/min/{1.73_m2} Normal >90 [facility] Comment on above: Result Comment: CALC ULATIONS OF ESTIMATED GFR ARE PERFORMED USING THE 2020 CKD-EPI STUDY REFIT EQUATION WITHOUT THE RACE VARIABLE FOR THE IDMS-TRACEABLE CREATININE METHODS. https://jasn.asnjournals.org/content/early//ASN.628991 8257 Performed By: #### C MP #### [address] [address] Glucose [Mass/Vol] 85 mg/dL Normal 74 - 99 [facility] Comment on above: Performed By: #### C MP #### [address] [address] HCO3 (Bld) [Moles/Vol] 30 mmol/L Normal 21 - 32 [facility] Comment on above: Performed By: #### C MP #### [address] [address] Potassium [Moles/Vol] 4.6 mmol/L Normal 3.5 - 5.3 [facility] Comment on above: Performed By: #### C MP #### [address] [address] Protein [Mass/Vol] 6.7 g/dL Normal 6.4 - 8.2 [facility] Comment on above: Performed By: #### C MP #### [address] 2020[address] Sodium [Moles/Vol] 139 mmol/L Normal 136 - 145 [facility] Comment on above: Performed By: #### C MP #### [address] [address] Urea nitrogen [Mass/Vol] 25 mg/dL High 6 - 23 [facility] Comment on above: Performed By: #### C MP #### [address] [address] VALPROIC ACIDon 02-26-2023 VALPROIC ACID 72 ug/mL Normal 50 - 100 [facility] Comment on above: Performed By: #### V ALPR #### [address] [address] 36on 12-19-2022 36 Patient does not nee d lab order or CT anymore. Cancelling Normal [facility] 36 Reason for Call: Pat ient is scheduled for CT Chest with contrast on 01/07/23. Patient will need creatinine lab done prior to CT. Please place order accordingly. If you have any questions please call Central Scheduling at [phone]. Thank you Normal [facility] Office Visiton 09-12-2022 Follow-up visit [id number] Yuliya Oliva 1950 F Date Provider Department Center 09/12/2022 [id number] None Family History Problem Relation Age of Onset Diabetes Maternal Grandmother Cancer Mother Hypertension Maternal Grandmother Diabetes Mother Family Status - Relation Status Age at Maternal Grandmother Mother Level of Service:49747 [place] POSTOP FOLLOW UP VISIT RELATED TO ORIGINAL PX Reason for Visit and Comments: Post-op [483] Normal [facility] Progress Noteon 09-12-2022 Progress Note [facility]: CT SURGEONS [facility] [address] [facility] [address] Dept: [phone] Dept Loc: [phone] Visit type: Established patient Reason for Visit: [...] CHRONIC INFLAMMATION AND FIBRIN DEPOSITION Inocente Deras, RECREATION CLERK - LOSS PREVENTION RESEARCH ENGINEER [facility] Progress Note S/p Right minithoracotomy pulmonary decortication [...] -Path discussed briefly; final path per surgeon [facility] 36on 09-09-2022 36 Case reviewed. Refill sent. Please notify patient. Myranda Mackenzie Feliciano, RECREATION CLERK - LOSS PREVENTION RESEARCH ENGINEER 09/09/22 [facility] 36 Pt states she is sti ll having post op pain. Educated her on post op pain management listed below. She states she takes 1000mg Tylenol TID and only uses the Oxycodone for increased pain at night. Pt is requesting a refill of Oxycodone sent to [facility] in [place]. Please advise. Right minithoracotomy pulmonary decortication visceral [...] for at least 20 minutes before reapplying. [facility] 36 Patient is calling i n and waking for a refill on the Oxycodone medication. Please call her back. [facility] [place] Thank you. [facility] 36on 09-03-2022 36 Spoke with [...] if swelling does not improve. Myranda Feliciano, RECREATION CLERK - LOSS PREVENTION RESEARCH ENGINEER 09/03/22 [facility] 36 Patient had a VATS o n 08/23/22 Patient calling in and states she has some leg swelling in both and asking what she needs to do Please advise [facility] 36 Error [facility] 36on 09-01-2022 36 Spoke with [...] any other questions or concerns. Hussein White, RECREATION CLERK - LOSS PREVENTION RESEARCH ENGINEER 09/01/22 [facility] 36 Name of caller requesting page:Ricarda Phone Number of caller: [phone] Facility requesting page: Patient Reason for Page: Severe pain, SOB. Surgery 08/23 for Right thoracotomy, decortication, and pleurodesis. Provider paged: [facility] Name of paged provider: [facility] Page Placed to #: On-Call Finder Time Page was sent or provider contacted: 10:10 AM Page Content: Pt Dylon Zofia 1950 states she had SX 08/23 for right thoracotomy, decortication, and pleurodesis. Pt c/o severe pain in Right Lung area and SOB. Pt can be reached at [phone] Please advise [place] [address]49on 08-27-2022 36 Pt states she had on e occurrence of blood tinged phlegm. Pt denies any other symptoms. Advised pt to call office if there are anymore occurrences or if she develops any symptoms. Also advised her to go to ED if she develops severe symptoms. Pt verbalizes understanding. [facility] 36 Patient was released from the hospital yesterday. She has been having coughing spells with phlegm and darker colored blood coming up. Please return her call to [phone]. Thank you. [facility] [id number] 08-26-2022 [id number] Pt declining home ca re services. [facility] CARECOORDon 08-26-2022 [place] Care Managment Initi al Assessment Date: 08/26/2022 Patient Name: Ricarda Oliva : 1950 Patient Information Source of Information: Patient Cognition/Language: WFL - Within Functional Limits Permission given to speak with patient franchise sales representative/caregiver as indicated: Confirmation of Payer with [...] Prescription Coverage: Yes Pharmacy Used: [facility], [place] Medication Management: Independent Transportation/Shopping: Independent Transportation Mode: [...] if medically stable. Madhuri Salcedo RN Normal [facility] No Panel InformationOrdered By: Jose Luis Arrington on 08-26-2022 Case Report Surgical Pathology C ase: [id number] Authorizing Provider: Sagar Hendrickson MD Collected: 08/23/2022 0754 Ordering Location: LOCATED [facility]IN [facility] MA[facility] OR Received: 08/23/2022 1205 Pathologist: Jose Luis Arrington Jr., MD Specimen: Pleural Cavity, Right, RIGHT LUNG VISCERAL PLEURA [facility] [employer] Work Phone: Clinical Information p8vgpJEhBCIsnCUnGKM wMlxh nmEvLSXrsONsH7GzljdvVWwp BZ9qBG7udUrdmLPtfEPdJMCb WoZoy3idj951bOKjq0phSUCY WCvyWYEFCUu1xWqnG02fr3W9 GwbeI9zdNPSgOLqiDAAoHMrg kDOqBNs3WZFezOJpivBfEhSa EMLgzJNbgKH1FHAoVE6txnpl OKzuCHpcPOHvzaV2YBJkwFTs U6CxPSGkLC2xqwjfITL5XCfb IERlLFQ4SsJqMCTyq4Akrge2 NwKolRCfGMfssIKsqPparW8d ZnMyMFxjZjEgUGxldXJhbCBl ViS6b0dhxiwbzp99TPFtj1N9 xKAkUJSagPHdw1orjUNdCSgF OTBdXHBhcn0= [facility] Work Phone: Disclaimer h6bulJHtRFMjrRSaAfSr MDAw TVRxy4huMZXxnDUcLyOlVjMh PoGhTkrdhQKvGIKcHwDhn6pa w754qEKab7bfHBMxTrR6oYLa TDIfI24iKGSAY297ZSTnPUca r7hji8ZtUFVvaXVbo1V9BUGP FOswSCTOWJu4oQvoP74cl8S7 FzltQ8szNTUkOVZkF7RtXQ6u XFQbLlh7FLV6IXQ8CYEiUSId T1KfEA4ySHNqmPRqDVu6a9qb yLlpYQDrGEF2e3pzVEgrjeLf XP6nsu7bhLv9l6cspaCgEERf YUQsfPFBYZUlQ9GlyFwpPe0c hZk6hYruXhusBYM5Wqv5NQ4d fe04srv5eBbjTUUshjfrVfA8 PZvsSEGbgjbhXYx0PXkpCPBg tPF1NNAzaDBlY7CsRYAiIJ2a qqt1QEC6ZHjbIBKjLuB0SYLh bAUqMSKucKgeFVdlk290BTE8 WzWsKO8wA3Jpz6R1xT5vmDWc FRUnpRXyVhFjOJPhhb0tbNEa TVpmr4KsQOS6byG9uLCrcSZs PRGoDI33Siult4GaWigsOQW8 JSWgtxMjm2Ptf2lfQgEszfEq P0ooN4SfNAPbNQKoRZOzMxOd plVrf7Inz2UsbGCgwFc2w2or COBdKCRzoOvog4twXMU1EUUu I8H0pOYgv5bvQZxhGQRufIG6 orC7OQWokQXfV2XmbQ6dZMVa RS4ucyt0q8clIVC1MMlwFIYi QzA5dbQ1TQRlfEEuUFIxbMzf HWsvd797ZAW5JbInVRJnq7Ov F7JftLofK34wiWtgI79yAKQz gGghvW0koVvjkI5zGxBnDlVs NFxxbFxwbGFpblxmMVxmczE2 KPywdgsoZAJfLBuwK8hwYmUs UAIkiPjlEVyhe4MjLKBiHNSz KGFiLQmvW3vcwF6zltfrDTeb PBXqoFmlb3vgFxTxhOQ1HU2s cbPiOJJttPfxhkC3ttTtbBnw nQ5tdH9xxGghpZ8ofFXqiWH3 cnksIGluIHNpdHUgaHlicmlk oRdasIofhnkzgA7sJCL0pUWf BDP9zKVrJEVjXPXeXOZatF32 sx4bwUVxhbLtE1UoK1TksDAj uIqbIp2mFQYnkmqeIGJnAHyv GJXmNULmVsTdyuXrk0CbuA1p RMDtPACkRV73tjYueaQ2jHDk YWJvdmUgdGVzdHMgaXMgcmVn dWxhdGVkIGFzIGFuIGFuYWx5 yHBcb8TrQ6tcjOKudpNfS5Tr uNErPDXUMN1zRWnxl0SthXDf sASvj0CsMHGaQLNziU9yIRHo LI6wHTZrEKlgNZYstcVasm4o iyPtARZzLMRmF7AasjihzHzx dnGrVWUvks3rsbNtGZD0NNEr ZSBjbGluaWNhbCBsYWJvcmF0 e8OkXQExq1RmW6HmzRAgPZHt gGSkVOZ3v0CqmC9nEXkboRIn JFRyYZ2wuYLdDPUoNEUoQNUw ORDhVzupeJonTVTFCJNhl3Zx QR1aCBRrtBxgLNAlxP0ve5Zy FAUvr81lYFNJDFruXHYdGAZD REEgaGFzIGRldGVybWluZWQg zGbqrTMxqNZbXIUgAEXjEO5o LVKolyBrsIHyv9VxiOAjvdJv d6OpyxGyNEHvZOQ1JqIzwHNe HZKhqjVSbWxqzNcbSHUje0Gv DNfgeMHyn8C1QFmmlkH6GRVr PXSzvaUymd7nUXSwqhKfPNNr MaSeduWltXUaBMEsGRT4bYXa dWUuIEFwcHJvcHJpYXRlIHBv f0i7aZBhNXZoFRHdWIflqBd9 KZEhk450qk0juhKdc9egkcYb DRRynJrsZUGkVEdfq9RsCBVz qK3seP0wpXPmZHsuNZapj5x4 kZT2zCXxfKJ3xDCshIijFNOq SZSkaQMpCkC3pGLsDQQei427 ea9ozuZbzX53YFKdDDhhTCW4 JYSjq1WepI9efbttaYB1sIWa iximj9v6yCLcN1UeuAPzJgga LUdzuQQmv8o7wWTqQkQxrOVr oyxcCj1nJLJhWEycUWZxFGBr MTZcbGFuZzEwMzNcaGljaFxm NWbyEsWlLMAkWUhgR7bsGcHv GgEkSpr6DBEwRYtdDJCldAqs rB0nXpVmAxEgSqnwZP9nRMQu G8kzpMSnWQZeZWOvW5vlHcWn rB7boIffERgdgnT7FRhrmFLe o5bcc9VgN9cjjFsuVSqcEUFz FKqoCPrsfsUewp25DIJlWM6f vfAwcACjpXBkKI9rEHWfP2Ii G1cljEGyFVGac4F7SDGeIPhq lVCynewgJAhgelN9LGycifyk ENKbPLmyM7zdQmIiHFRzwKlq HPuul5MmPMMuRAWzFDPhxRD5 MQVeE5KoGEQiIFsiWAPhPODs MTZcbGFuZzEwMzNcaGljaFxm XPmsAuXmPJOlEBqiU8jtToNr XcZsHpNFPUI4cHPgLDGmq2Kz ZCBiZSBpbnRlcnByZXRlZCB3 aGAoLFZyqUPwb99uJ6w0HY4x cIgbQAZlhOZhQAEqb1TbhBQf tMf3pBJcRhQhUVstLKQzRJwj qXs5uGK9UY7sIXSyX0SpU1vn vFXlBXVhGUWmvFUbnn5bmCbx nN5aDgAwRjVwQnvwQN8rIKMf J5qreZTjIZQuYRSiW9ebDqEw hE9cyQriJDqnuyUmOCDeho8= [employer] Work Phone: Gross Description a5ckjLOdWBEisFThXVZn Mlxh tbSwHBMwqFGmD4EzfvdrOFkg TI1hEE2qtJuynCLweEKuUTFo MrSsk0fmn931zVJhn7ztHWFE QSkfSMIVLXs1lQxqV96wf7C2 BsqrH01agKXmWTN9SRNlRFRq wGTrQENuMLR1ATPjsURtN5dg NMLnFQ5sqgqsJNucGKyjVANk tOE4NSYahQGtP9AuIVYwAUyx ORAipok0OmQtWu7vcMFenMbj MFxwYXJkXHBsYWluXGZzMjAg RoBiXIk3KIHctY6oEh4ytBGb pZ7svIMlFEwgTWBjfgqqwUEr wLGjCsP7sJZrYTXyaOXesPL2 akIvKOEvPGMligXuR5FrPBTa VhAtA93aoySyLL9bKTMfeCvc jEk6PM5gcIBbRB3jsLKygEkl N9imy9sksJLtD5CzkNK5jEFb vPAdTNqyqkSfPGFfptecsB2h UOL5IQNxoZOzAataG99oDWDI nSQla2PbAzWmDISeNJHiUKkq d8RaxIkpjX2lAX9ipgpnXirn DmXjTb5rG3BnJ0oqgJIekJsq mkOiKQLuCXboMS45zTIsXLUg UHVVYQNtWBXeehTxyFt0HTAj HXQ3oX7cuqVxvpEpm1BaiEm8 lECdQPkqIAC0gtLiOICzRNF1 ZXMuIFxwYXJ9 [facility] Work Phone: Pathologist Interpretation Location [facility], [address] [place] [address], [facility] [address], CLIA: [id number]; Joint Commission: [id number]; CAP: [id number] [facility] [employer] Phone: Pathology report final diagnosis Narrative n1rpjJUxAVSqbMAaMOIaYdcx ktIkZQUpnBOhH3DsjqmiFEwi KE3hAB0miBptzWZnuVHxQWRj PjOxo6yyt130pRAtn2nqXJEV PFhtREHMMNw3eEflE66hf4G0 KvunM05vrTYbKWO5XCEsPFEe tPMjFWImVYZ6RYHyrBTsS9co NTDgWY2prcnvKIpjUWhiJPOp hGJ6ZOHqpBUiP5TbFKJxDZjh WVHulna2HdZuHe8wnTLboIzo MFxwYXJkXHBsYWluXGZzMjAg BgXJO4wVSSmYKrkxLueLB0NQ PLsxZJqIOZJLGyfjxtQak8aw TCVGC1NsISvVGAiYBseoOXVr QbfPDa6NXjLZJJRARMOuWRIT KTRGPQsPSTWlS7bFVAFBXZLU AkMPNNIDRRLEONybR0pSYTID NCKGFauVJEqIYupPXG2DVEyV RtVXGxZwCuyRBbiHLRZINA0G VKVQH86koYXhbH== [employer] Work Phone: [employer] Work Phone: Nursing Noteon 08-26-2022 Nursing Note Pt. Alert and orient ed. PIV's have been removed. court monitor has been removed. AVS printed, reviewed, and given to patient. All questions and concerns have been addressed. Pt. Left unit ambulatory. Medications will be picked up from pharmacy. All belongings were given to patient. Normal [facility] Progress Noteon 08-26-2022 Progress Note Right thoracic carrie drain removed without issue Normal [facility] Progress Note ---- -------- Attestation signed by Sagar Hendrickson MD at 08/26/2022 2:26 PM I independently saw and evaluated the patient - including reviewing the labs, imaging studies, and available documentation. I agree with the findings and plan of care as documented by the resident/SYSTEMS ADMINISTRATION ANALYST/DIRECTOR OF PHYSIOTHERAPY SERVICES/PA, unless otherwise noted. Please do not hesitate [...] appropriately Data: CBC: Recent Labs 08/23/22 0950 08/24/22216 WBC 6.8 10.6 HGB 11.9 12.8 HCT [...] up for stitch removal Normal [facility] Progress Note Chest tube canister appears to [...] simply an educated guess. Normal [facility] XR Chest Single viewon 08-26 1. Right-sided chest tube. 2. No pneumothorax. 3. Stable subcutaneous air about the right chest and neck. Report Dictated on Electronically Signed By: Sunday Ralph Electronically Signed Date/Time: 08/26/2022 12:48 AM EST [facility] Patient Name: RICARDA OLIVA Exam Date/Time: [...] and neck. The left lung is clear. [facility] Sunday aRlph MD - 08/26/2022 Patient Name: RICARDA OLIVA [...] Electronically Signed Date/Time: 08/26/2022 12:48 AM EST [facility] Radiology Study observation (narrative) [facility] Progress Noteon 08-25-2022 Progress Note Nutrition rescreen completed. Chart reviewed. Patient to be monitored and followed by the diet security systems technician. Normal [facility] XR Chest Single viewon 08-25 Patient [...] is clear. The heart size is normal. [facility] Sunday Ralph MD - 08/25/2022 Patient Name: [...] Electronically Signed Date/Time: 08/25/2022 12:57 AM EST [facility] Radiology Study observation (narrative) [facility] XR Chest Single viewOrdered By: Sunday Ralph on 08-25-2022 [facility] [employer] Work Phone: Basic metabolic 1998 panelon 08-24-2022 Anion gap [Moles/Vol] 9 mmol/L 3 - 13 mmol/L [facility] Calcium [Mass/Vol] 8.7 mg/dL 8.4 - 10. 4 mg/dL [facility] Chloride [Moles/Vol] 99 mmol/L 98 - 10 7 mmol/L [facility] CO2 [Moles/Vol] 24 mmol/L 22 - 30 mmol/L [facility] Creatinine [Mass/Vol] 1.03 mg/dL 0.52 - 1.04 mg/dL [facility] GFR/1.73 sq M.predicted MDRD (S/P/Bld) [Vol rate/Area] 58.3 mL/min/{1.73_m2} Low - PINF [facility] Comment on above: Calculation based on the Chronic Kidney Disease Epidemiology Collaboration (CKD-EPI) equation refit without adjustment for race Glucose [Mass/Vol] 132 mg/dL High 70 - 100 mg/dL [facility] Interpretation and review of laboratory results Abnormal [facility] Potassium [Moles/Vol] 4.9 mmol/L 3.5 - 5.1 mmol/L [facility] Sodium [Moles/Vol] 132 mmol/L Low 135 - 145 mmol/L [facility] Urea nitrogen [Mass/Vol] 33 mg/dL High 7 - 17 mg/dL [facility] Basic metabolic 1997 panelOr dered By: Sam Sousa on 08-24-2022 Anion gap [Moles/Vol] 6 mmol/L 3 - 13 mmol/L [facility] Calcium [Mass/Vol] 9.0 mg/dL 8.4 - 10. 4 mg/dL [facility] Chloride [Moles/Vol] 103 mmol/L 98 - 10 7 mmol/L [facility] CO2 [Moles/Vol] 26 mmol/L 22 - 30 mmol/L [facility] Creatinine [Mass/Vol] 0.92 mg/dL 0.52 - 1.04 mg/dL [facility] GFR/1.73 sq M.predicted MDRD (S/P/Bld) [Vol rate/Area] 66.7 mL/min/{1.73_m2} - PINF [facility] Comment on above: Calculation based on the Chronic Kidney Disease Epidemiology Collaboration (CKD-EPI) equation refit without adjustment for race Glucose [Mass/Vol] 121 mg/dL High 70 - 100 mg/dL [facility] Interpretation and review of laboratory results Abnormal [facility] Potassium [Moles/Vol] 5.9 mmol/L High 3.5 - 5.1 mmol/L [facility] Sodium [Moles/Vol] 135 mmol/L 135 - 145 mmol/L [facility] Urea nitrogen [Mass/Vol] 29 mg/dL High 7 - 17 mg/dL [facility] Moderately hemolyzed . Interpret with caution. Tests affected: Potassium, Glucose. [facility] CBC panel Auto (Bld)Ordered By: Renay Patterson on 08-24-2022 Erythrocyte distribution width (RBC) [Ratio] 14.0 % 11.5 - 14.5 % [facility] Hematocrit (Bld) [Volume fraction] 38.6 % 35.0 - 47.0 % [facility] Hemoglobin (Bld) [Mass/Vol] 12.8 g/dL 11.7 - 16.0 g/dL [facility] Interpretation and review of laboratory results Normal [facility] MCH (RBC) [Entitic mass] 31.6 pg 26.0 - 34.0 pg [facility] MCHC (RBC) [Mass/Vol] 33.1 % 32.0 - 36.0 % [facility] MCV (RBC) [Entitic vol] 95.5 fL 80.0 - 98.0 fL [facility] Platelet mean volume (Bld) [Entitic vol] 8.8 fL 7.4 - 12.4 fL [facility] Platelets (Bld) [#/Vol] 317 10*3/uL 140 - 440 10*3/uL [facility] RBC (Bld) [#/Vol] 4.04 10*6/uL 3.8 - 5.20 10*6/uL [facility] WBC (Bld) [#/Vol] 10.6 10*3/uL 3.6 - 10.7 10*3/uL [facility] Progress Noteon 08-24-2022 Progress Note Physical Therapy Facility/Department: [facility] Physical Therapy Initial Evaluation NAME: Ricarda Oliva [...] who can assist. Anticipate return home with 03/03 supervision and home health PT. Performance Deficits/Impairments: [...] ROM, Corina (more content not included)... Normal [facility] XR CHEST 1 VIEWon 08-24-2022 XR CHEST [...] Electronically Signed Date/Time: 08/24/2022 7:43 AM EST Normal [facility] XR Chest Single viewon 08-24 Patient Name: [...] Electronically Signed Date/Time: 08/24/2022 7:43 AM EST [facility] Diana Romero MD - 08/24/2022 Patient [...] Electronically Signed Date/Time: 08/24/2022 7:43 AM EST [facility] Radiology Study observation (narrative) [facility] XR Chest Single viewOrdered By: Diana Romero on 08-24-2022 [facility] Work Phone: [phone] 08-23-2022 [id number] Insurance Sales Assistant following case for Discharge Needs. Normal [facility] ABO and Rh group Confirm Nom (Bld)on 08-23-2022 ABO group Nom (Bld) A [facility] D Ag Ql (RBC) Positive [facility]alt [facility] Basic metabolic 1998 panelon 08-23-2022 Anion gap [Moles/Vol] 9 mmol/L 3 - 13 mmol/L [facility] Calcium [Mass/Vol] 8.5 mg/dL 8.4 - 10. 4 mg/dL [facility] Chloride [Moles/Vol] 106 mmol/L 98 - 10 7 mmol/L [facility] CO2 [Moles/Vol] 26 mmol/L 22 - 30 mmol/L [facility] Creatinine [Mass/Vol] 0.85 mg/dL 0.52 - 1.04 mg/dL [facility] GFR/1.73 sq M.predicted MDRD (S/P/Bld) [Vol rate/Area] 73.4 mL/min/{1.73_m2} - PINF [facility] th Comment on above: Calculation based on the Chronic Kidney Disease Epidemiology Collaboration (CKD-EPI) equation refit without adjustment for race Glucose [Mass/Vol] 126 mg/dL High 70 - 100 mg/dL [facility] Interpretation and review of laboratory results Abnormal [facility] Potassium [Moles/Vol] 4.5 mmol/L 3.5 - 5.1 mmol/L [facility] Sodium [Moles/Vol] 140 mmol/L 135 - 145 mmol/L [facility] Urea nitrogen [Mass/Vol] 32 mg/dL High 7 - 17 mg/dL [facility] Blood type and Crossmatch marquez molina (Bld)on 08-23-2022 ABO group Nom (Bld) A [facility] Blood group antibody screen GEL Ql Negative [facility] D Ag Ql (RBC) Positive [facility] h [facility] CBC panel Auto (Bld)Ordered By: Mao Avalos on 08-23-2022 Erythrocyte distribution width (RBC) [Ratio] 14.2 % 11.5 - 14.5 % [facility] Hematocrit (Bld) [Volume fraction] 35.1 % 35.0 - 47.0 % [facility] Hemoglobin (Bld) [Mass/Vol] 11.9 g/dL 11.7 - 16.0 g/dL [facility] Interpretation and review of laboratory results Abnormal [facility] MCH (RBC) [Entitic mass] 32.7 pg 26.0 - 34.0 pg [facility] MCHC (RBC) [Mass/Vol] 33.9 % 32.0 - 36.0 % [facility] MCV (RBC) [Entitic vol] 96.6 fL 80.0 - 98.0 fL [facility] Platelet mean volume (Bld) [Entitic vol] 8.7 fL 7.4 - 12.4 fL [facility] Platelets (Bld) [#/Vol] 225 10*3/uL 140 - 440 10*3/uL [facility] RBC (Bld) [#/Vol] 3.63 10*6/uL Low 3.8 - 5.20 10*6/uL [facility] WBC (Bld) [#/Vol] 6.8 10*3/uL 3.6 - 10.7 10*3/uL [facility] CBC panel Auto (Bld)on 08-23 Erythrocyte distribution width (RBC) [Ratio] 14.4 % 11.5 - 14.5 % [facility] Hematocrit (Bld) [Volume fraction] 37.3 % 35.0 - 47.0 % [facility] Hemoglobin (Bld) [Mass/Vol] 12.4 g/dL 11.7 - 16.0 g/dL [facility] Interpretation and review of laboratory results Normal [facility] MCH (RBC) [Entitic mass] 31.7 pg 26.0 - 34.0 pg [facility] MCHC (RBC) [Mass/Vol] 33.2 % 32.0 - 36.0 % [facility] MCV (RBC) [Entitic vol] 95.5 fL 80.0 - 98.0 fL [facility] Platelet mean volume (Bld) [Entitic vol] 8.8 fL 7.4 - 12.4 fL [facility] Platelets (Bld) [#/Vol] 283 10*3/uL 140 - 440 10*3/uL [facility] RBC (Bld) [#/Vol] 3.91 10*6/uL 3.8 - 5.20 10*6/uL [facility] WBC (Bld) [#/Vol] 6.1 10*3/uL 3.6 - 10.7 10*3/uL [facility] Comprehensive metabolic 1998 panelon 08-23-2022 Albumin [Mass/Vol] 3.9 g/dL 3.5 - 5.0 g/dL [facility] ALP [Catalytic activity/Vol] 55 U/L 38 - 126 U/L [facility] ALT [Catalytic activity/Vol] 15 U/L 0 - 34 U/L [facility] Anion gap [Moles/Vol] 5 mmol/L 3 - 13 mmol/L [facility] AST [Catalytic activity/Vol] 28 U/L 15 - 46 U/L [facility] Bilirubin [Mass/Vol] 0.4 mg/dL 0.2 - 1 .3 mg/dL [facility] Calcium [Mass/Vol] 9.0 mg/dL 8.4 - 10. 4 mg/dL [facility] Chloride [Moles/Vol] 109 mmol/L High 98 - 10 7 mmol/L [facility] CO2 [Moles/Vol] 23 mmol/L 22 - 30 mmol/L [employer] Creatinine [Mass/Vol] 0.89 mg/dL 0.52 - 1.04 mg/dL [employer] [facility] GFR/1.73 sq M.predicted MDRD (S/P/Bld) [Vol rate/Area] 69.4 mL/min/{1.73_m2} - PINF [facility] Comment on above: Calculation based on the Chronic Kidney Disease Epidemiology Collaboration (CKD-EPI) equation refit without adjustment for race Glucose [Mass/Vol] 87 mg/dL 70 - 100 mg/dL [facility] aaTag Interpretation and review of laboratory results Abnormal [employer] [facility] Potassium [Moles/Vol] 4.6 mmol/L 3.5 - 5.1 mmol/L [facility] Protein [Mass/Vol] 6.9 g/dL 6.3 - 8.2 g/dL [facility] Sodium [Moles/Vol] 138 mmol/L 135 - 145 mmol/L [facility] Urea nitrogen [Mass/Vol] 33 mg/dL High 7 - 17 mg/dL [facility] Slightly Hemolyzed. Interpret ALKALINE PHOSPHATASE, AST, and POTASSIUM with caution. [facility] [employer] ECG 12-LEADon 08-23-2022 ECG 12-LEAD IMPRESSION: Sinus rhythm Normal EKG Electronically Signed On 08-23-2022 14:39:51 EST by Popeye Lazo Normal [facility] aaTag System [facility] No Panel InformationOrdered By: oPpeye Lazo on 08-23-2022 P [place] 72 degrees [employer] Work Phone: [place] Interval 165 ms [employer] Work Phone: QRS [place] -1 degrees [employer] Work Phone: QRSD Interval 82 ms [facility] [employer] Work Phone: QT Interval 415 ms [employer] Work Phone: QTC Interval 423 ms [employer] Work Phone: T Wave [place] 27 degrees [employer] Work Phone: [employer] Work Phone: No Panel Informationon 08-23 Sinus rhythm Normal EKG Electronically Signed On 08-23-2022 14:39:51 EST by Popeye Lazo Popeye Foster MD - 08/23/2022 IMPRESSION: Sinus rhythm Normal EKG Electronically Signed On 08-23-2022 14:39:51 EST by Popeye Lazo [facility] Nursing Noteon 08-23-2022 Nursing Note Awaiting x-ray to preform ordered x-ray. Normal [facility] Nursing Note Report given to Ivania. Normal [facility] Nursing Note Nasal airway removed. Normal [facility] Nursing Note Nasal airway placed, left nare. Pt tolerated without difficulty. 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 Report Dictated on Electronically Signed By: David Castillo Electronically Signed Date/Time: 08/23/2022 12:02 PM [facility] Patient Name: RICARDA OLIVA Exam Date/Time: 08/23/2022 11:35 Procedure: XR CHEST 1 VIEW Ordering Provider: DERAS ANDREW Reason For Exam: Clinical History: Chest tube placement Comparison: 08/23/2022 at 1037 hours Technique: Single AP radiograph of the chest. [facility] David Castillo MD - 08/23/2022 Patient [...] Castillo Electronically Signed Date/Time: 08/23/2022 12:02 PM [facility] Impression: 1. New right basilar chest tube with improvement of small right pleural effusion. 2. Mild residual patchy atelectasis/infiltrates in the right lung base. Report Dictated on Electronically Signed By: David Castillo Electronically Signed Date/Time: 08/23/2022 11:42 AM [facility] Patient Name: RICARDA OLIVA Exam Date/Time: 08/23/2022 [...] is seen in the right chest wall. [facility] Jonathan, David Caban MD - 08/23/2022 Patient Name: [id number] Exam Date/Time: 08/23/2022 10:38 Procedure: XR CHEST [...] Electronically Signed Date/Time: 08/23/2022 11:42 AM EST [facility] Radiology Study observation (narrative) [facility] Radiology Study observation (narrative) [employer] XR Chest Single viewOrdered By: David Castillo on 08-23-2022 [employer] Work Phone: [employer] Work Phone: 36on 08-21-2022 36 Name of caller requesting page:Ricarda Phone Number of caller: [phone] Facility requesting page: N/A Reason for Page: little trouble breathing Provider paged: Practice Name of paged provider: Cardiothoracic surgery Page Placed to #: N/A Time Page was sent or provider contacted: 4:45 PM Page Content: Patient is requesting a call back at [phone] stating she is having a little trouble breathing and she is having surgery on Friday. Please advise Normal [facility] Psychiatry Adulton 3 Psychiatry Adult Diagnoses/Problems Assessed [...] intrusive thoughts (more content not included)... Normal [employer] Tobacco Screening.on 023 Fall risk assessment a) No falls within the last year -[facility] Work Phone: Tobacco use status [facility]PH[facility] b) No [facility] Work Phone: Tobacco Screening. Yes Pending sale to [facility] Work Phone: 36on 08-16-2022 36 Called patient and a ll questions answered [facility] 36 Patient is scheduled for right VATS pleurodesis on 08/23/22 Patient is calling in asking about how much pain she will be in after surgery and what pain medication will be called in for her? She does not have a PAT because [place] away Please advise [phone] [facility] 36on 08-15-2022 36 Surg proc orders [place]. Hussein White, DERECK - LOSS PREVENTION RESEARCH ENGINEER 08/15/22 [facility] 36 Patient is scheduled for Right VATS pleurodesis possible pulmonary decortication on 08/23/22 at 7:[address] Hendrickson told patient they could do all pre-op testing morning of surgery since they live so far away Please place surg proc orders Thank you [facility] Office Visiton 08-15-2022 Follow-up visit [id number] Yuliya Oliva 1950 F Date Provider Department Center 08/15/2022 [id number] HENDRICKSON [facility] None Family History Problem Relation Age of Onset Diabetes Maternal Grandmother Cancer Mother Hypertension Maternal Grandmother Diabetes Mother Family Status - Relation Status Age at Maternal Grandmother Mother Level of Service:79621 [place] OFFICE/OUTPATIENT ESTABLISHED LOW MDM 20-29 MIN Reason for Visit and Comments: Follow-up [834960] Normal [facility] Progress Noteon 08-15-2022 Progress Note [facility] [address] [facility] [address] Dept: [phone] Dept Loc: [phone] Patient was seen today via Telehealth by [...] stated that they are currently in the [facility]. If the patient is a minor, [...] (more content not included)... Normal [facility] 36on 08-09-2022 36 Patient called in as alek for the results of the CT scan done at [place]. Images have been pushed thru to [facility] and report is on Dr Hendrickson's desk. She would like a call back to discuss. Normal [facility] Office Visiton 07-25-2022 Follow-up visit [id number] Yuliya Oliva 1950 F Date Provider Department Center 07/25/2022 [id number] HENDRICKSON [facility] None Family History Problem Relation Age of Onset Diabetes Maternal Grandmother Cancer Mother Hypertension Maternal Grandmother Diabetes Mother Family Status - Relation Status Age at Maternal Grandmother Mother Level of Service:47174 [place] OFFICE/OUTPATIENT ESTABLISHED MOD MDM 30-39 MIN Reason for Visit and Comments: Results [95] - Discuss results Normal [facility] Progress Noteon 07-25-2022 Progress Note [facility] [address] [facility] [address] Dept: [phone] Dept Loc: [phone] Visit type: Established Reason for Visit: right [...] (more content not included)... Normal [facility] Nursing Noteon 07-12-2022 Nursing Note Patient arrived [...] patient discharged to home. Normal [facility] US GUIDED THORACENTESISon US GUIDED THORACENTESIS Patient Name: RICARDA OLIVA Exam Date/Time: 07/12/2022 12:55 Procedure: US GUIDED [...] Mayes Electronically Signed Date/Time: 07/12/2022 1:27 PM [facility] Psychiatry Adulton 2 Psychiatry Adult Diagnoses/Problems Assessed [...] no flashback (more content not included)... Normal [facility] Complete Blood Count + Diffe amira 02-25-2022 Basophils/100 WBC (Bld) 1.3 % 0.0 - 2.0 [employer] Work Phone: Erythrocyte distribution width (RBC) [Ratio] 14.0 % See Below [employer] Work Phone: Comment on above: Reference Range: 11. 5 - 14.5 Hematocrit (Bld) [Volume fraction] 38.4 % See Below [facility] [facility] Work Phone: Comment on above: Reference Range: 36. 0 - 46.0 Hemoglobin (Bld) [Mass/Vol] 12.7 g/dL See Below [facility] Work Phone: Comment on above: Reference Range: 12. 0 - 16.0 Lymphocytes/100 WBC (Bld) 29.4 % See Below [facility] Work Phone: Comment on above: Reference Range: 13. 0 - 44.0 MCHC (RBC) [Mass/Vol] 33.0 g/dL See Below [facility] Work Phone: Comment on above: Reference Range: 32. 0 - 36.0 MCV (RBC) [Entitic vol] 97 fL 80 - 100 [facility] Work Phone: Monocytes/100 WBC (Bld) 10.4 % 2.0 - 10.0 [facility] Work Phone: Neutrophils/100 WBC (Bld) 55.2 % See Below [facility] Work Phone: Comment on above: Reference Range: 40. 0 - 80.0 Platelets (Bld) [#/Vol] 232 10*3/uL 150 - 450 [facility] Work Phone: RBC (Bld) [#/Vol] 3.95 {x10E12/L} below low threshold See Below [facility] Work Phone: Comment on above: Reference Range: 4.0 0 - 5.20 WBC (Bld) [#/Vol] 5.4 10*3/uL 4.4 - 11.3 [facility] Work Phone: Complete Blood Count + Differential 0.10 {x10E9/L} See Below [facility] Work Phone: Comment on above: Reference Range: 0.0 0 - 0.10 Complete Blood Count + Differential 0.20 {x10E9/L} See Below [facility] Work Phone: Comment on above: Reference Range: 0.0 0 - 0.70 Complete Blood Count + Differential 0.60 {x10E9/L} See Below [facility] Work Phone: Comment on above: Reference Range: 0.1 0 - 1.00 Complete Blood Count + Differential 1.60 {x10E9/L} See Below [facility] Work Phone: Comment on above: Reference Range: 1.2 0 - 4.80 Complete Blood Count + Differential 3.00 {x10E9/L} See Below [facility] Work Phone: Comment on above: Reference Range: 1.2 0 - 7.70 Percent differential counts (%) should be interpreted in the context of the absolute cell counts (cells/L). Complete Blood Count + Differential 3.7 % 0.0 - 6.0 [facility] [address] Work Phone: Complete Blood Count + Differential 0.1 {/100_WBC} [facility] [address] Work Phone: Laboratory - Chemistry and C hemistry - challengeon 02-25-2022 Albumin BCP dye [Mass/Vol] 4.1 g/dL 3.4 - 5.0 [facility] [address] Work Phone: ALP [Catalytic activity/Vol] 59 U/L 33 - 136 [facility] [address] Work Phone: ALT With P-5'-P [Catalytic activity/Vol] 14 U/L 7 - 45 [facility] [address] Work Phone: Comment on above: Patients treated wit h Sulfasalazine may generate falsely decreased results for ALT. Anion gap [Moles/Vol] 9 mmol/L below low threshold 10 - 20 [facility] Work Phone: AST With P-5'-P [Catalytic activity/Vol] 16 U/L 9 - 39 [facility] Work Phone: Bilirubin [Mass/Vol] 0.4 mg/dL 0.0 - 1.2 [facility]at[facility] -[facility] Work Phone: [phone] Calcium [Mass/Vol] 9.0 mg/dL 8.6 - 10.3 [facility] -[facility] Work Phone: [phone] Chloride [Moles/Vol] 106 mmol/L 98 - 107 [facility]at[facility] -[facility] Work Phone: [phone] CO2 [Moles/Vol] 29 mmol/L 21 - 32 [facility] Work Phone: [phone] Creatinine [Mass/Vol] 0.91 mg/dL See Below [facility] Work Phone: [phone] Comment on above: Reference Range: 0.5 0 - 1.05 Glucose [Mass/Vol] 87 mg/dL 74 - 99 [facility] Work Phone: Potassium [Moles/Vol] 4.8 mmol/L 3.5 - 5.3 [facility] Work Phone: Protein [Mass/Vol] 6.7 g/dL 6.4 - 8.2 [facility] Work Phone: [phone] Sodium [Moles/Vol] 139 mmol/L 136 - 145 [facility] Work Phone: Urea nitrogen [Mass/Vol] 21 mg/dL 6 - 23 [facility] Work Phone: No Panel Informationon 02-25 68 {mL/min/1.73m2} >90 [facility] Work Phone: Comment on above: CALCULATIONS OF CHEPE MATED GFR ARE PERFORMED USING THE 2020 CKD-EPI STUDY REFIT EQUATION WITHOUT THE RACE VARIABLE FOR THE IDMS-TRACEABLE CREATININE METHODS.https://jasn.asnjournals.org/content/early// N.5917831988 Valproic Acid Level, Serumon 02-25-2022 Valproate [Mass/Vol] 61 ug/mL 50 - 100 [facility]ul[facility]iat[facility] -[facility] [address] [place] Work Phone: Psychiatry Adulton 2 Psychiatry Adult [...] phobia, n (more content not included)... [facility].on 022 Fall risk assessment a) No falls within the last year [facility] Work Phone: Tobacco use status CPHS b) No [facility] Work Phone: Complete Blood Count + Diffe [place] 07-31-2021 Basophils/100 WBC (Bld) 1.1 % 0.0 - 2.0 [facility] [address] Work Phone: Erythrocyte distribution width (RBC) [Ratio] 15.2 % above high threshold See Below [facility] [address] Work Phone: Comment on above: Reference Range: 11. 5 - 14.5 Hematocrit (Bld) [Volume fraction] 39.5 % See Below [facility] Work Phone: Comment on above: Reference Range: 36. 0 - 46.0 Hemoglobin (Bld) [Mass/Vol] 12.8 g/dL See Below [facility] Work Phone: Comment on above: Reference Range: 12. 0 - 16.0 Lymphocytes/100 WBC (Bld) 25.1 % See Below [facility] Work Phone: Comment on above: Reference Range: 13. 0 - 44.0 MCHC (RBC) [Mass/Vol] 32.5 g/dL See Below [facility] Work Phone: Comment on above: Reference Range: 32. 0 - 36.0 MCV (RBC) [Entitic vol] 98 fL 80 - 100 [facility] [place] Work Phone: [phone] Monocytes/100 WBC (Bld) 9.1 % 2.0 - 10.0 [facility] [place] Work Phone: [phone] Neutrophils/100 WBC (Bld) 60.5 % See Below [facility] Work Phone: [phone] Comment on above: Reference Range: 40. 0 - 80.0 Platelets (Bld) [#/Vol] 303 10*3/uL 150 - 450 [facility] Work Phone: [phone] RBC (Bld) [#/Vol] 4.02 {x10E12/L} See Below [facility] Work Phone: [phone] Comment on above: Reference Range: 4.0 0 - 5.20 WBC (Bld) [#/Vol] 7.1 10*3/uL 4.4 - 11.3 [facility] Work Phone: [phone] Complete Blood Count + Differential 0.10 {x10E9/L} See Below [facility] Work Phone: [phone] Comment on above: Reference Range: 0.0 0 - 0.10 Complete Blood Count + Differential 0.30 {x10E9/L} See Below [facility] Work Phone: Comment on above: Reference Range: 0.0 0 - 0.70 Complete Blood Count + Differential 0.60 {x10E9/L} See Below [facility] Work Phone: Comment on above: Reference Range: 0.1 0 - 1.00 Complete Blood Count + Differential 1.80 {x10E9/L} See Below [facility] [place] Work Phone: Comment on above: Reference Range: 1.2 0 - 4.80 Complete Blood Count + Differential 4.30 {x10E9/L} See Below [facility] Work Phone: Comment on above: Reference Range: 1.2 0 - 7.70 Percent differential counts (%) should be interpreted in the context of the absolute cell counts (cells/L). Complete Blood Count + Differential 4.2 % 0.0 - 6.0 [facility] -[address] Work Phone: Complete Blood Count + Differential 0.1 {/100_WBC} [address] Work Phone: [phone] Laboratory - Chemistry and C hemistry - challengeon 07-31-2021 Albumin BCP dye [Mass/Vol] 3.9 g/dL 3.4 - 5.0 -Psychiatry [address] Work Phone: ALP [Catalytic activity/Vol] 63 U/L 33 - 136 -Psychiatry [address] Work Phone: ALT With P-5'-P [Catalytic activity/Vol] 16 U/L 7 - [address] Work Phone: [phone] Comment on above: Patients treated wit h Sulfasalazine may generate falsely decreased results for ALT. Anion gap [Moles/Vol] 9 mmol/L below low threshold 10 - 20 [facility] [address] Work Phone: AST With P-5'-P [Catalytic activity/Vol] 16 U/L 9 - [address] [address] Work Phone: Bilirubin [Mass/Vol] 0.4 mg/dL 0.0 - 1.2 [facility] sychiatry [address] Work Phone: Calcium [Mass/Vol] 9.3 mg/dL 8.6 - 10.3 [facility]-Psy chiatr[address] Work Phone: Chloride [Moles/Vol] 105 mmol/L 98 - 107 [facility] sychiatry [address] Work Phone: CO2 [Moles/Vol] 32 mmol/L 21 - 32 [facility] at[facility] [address] Work Phone: Creatinine [Mass/Vol] 0.91 mg/dL See Below [facility] Work Phone: Comment on above: Reference Range: 0.5 0 - 1.05 Glucose [Mass/Vol] 69 mg/dL below low threshold 74 - 99 [facility] Work Phone: Potassium [Moles/Vol] 4.2 mmol/L 3.5 - 5.3 [facility] Work Phone: Protein [Mass/Vol] 6.7 g/dL 6.4 - 8.2 [facility] Work Phone: Sodium [Moles/Vol] 142 mmol/L 136 - 145 [facility] Work Phone: Urea nitrogen [Mass/Vol] 24 mg/dL above high threshold 6 - 23 [facility] Work Phone: No Panel Informationon 07-31 >60 >60 [facility] Work Phone: Comment on above: CALCULATIONS OF CHEPE MATED GFR ARE PERFORMED USING THE MDRD STUDY EQUATION FOR THE IDMS-TRACEABLE CREATININE METHODS. CLIN CHEM 2007;53:766-72 Valproic Acid Level, Serumon 07-31-2021 Valproate [Mass/Vol] 73 ug/mL 50 - 100 [facility]at[facility] -[facility] Work Phone: CBC AND DIFFERENTIALon 11-14 Basophils (Bld) [#/Vol] 0.10 10*3/uL Normal 0.00 - 0.10 [facility] Comment on above: Performed By: #### C BCDF #### [address] [address] Basophils/100 WBC (Bld) 1.0 % Normal 0.0 - 2.0 [facility] Comment on above: Performed By: #### C BCDF #### [address] [address] Eosinophils (Bld) [#/Vol] 0.20 10*3/uL Normal 0.00 - 0.70 [facility] Comment on above: Performed By: #### C BCDF #### [address] [address] Eosinophils/100 WBC (Bld) 3.2 % Normal 0.0 - 6.0 [facility] Comment on above: Performed By: #### C BCDF #### [address] [address] Erythrocyte distribution width (RBC) [Ratio] 14.3 % Normal 11.5 - 14.5 [facility] Comment on above: Performed By: #### C BCDF #### [address] [address] Hematocrit (Bld) [Volume fraction] 37.9 % Normal 36.0 - 46.0 [facility] Comment on above: Performed By: #### C BCDF #### [address] [address] Hemoglobin (Bld) [Mass/Vol] 12.4 g/dL Normal 12.0 - 16.0 [facility] Comment on above: Performed By: #### C BCDF #### [address] [address] Lymphocytes (Bld) [#/Vol] 1.90 10*3/uL Normal 1.20 - 4.80 [facility] Comment on above: Performed By: #### C BCDF #### [address] [address] Lymphocytes/100 WBC (Bld) 32.0 % Normal 13.0 - 44.0 [facility] Comment on above: Performed By: #### C BCDF #### [address] [address] MCHC (RBC) [Mass/Vol] 32.6 g/dL Normal 32.0 - 36.0 [facility] Comment on above: Performed By: #### C BCDF #### [address] [address] MCV (RBC) [Entitic vol] 97 fL Normal 80 - 100 [facility] Comment on above: Performed By: #### C BCDF #### [address] [address] Monocytes (Bld) [#/Vol] 0.60 10*3/uL Normal 0.10 - 1.00 [facility] Comment on above: Performed By: #### C BCDF #### [address] [address] Monocytes/100 WBC (Bld) 9.7 % Normal 2.0 - 10.0 [facility] Comment on above: Performed By: #### C BCDF #### [address] [address] Neutrophils (Bld) [#/Vol] 3.10 10*3/uL Normal 1.20 - 7.70 [facility] Comment on above: Result Comment: Perc ent differential counts (%) should be interpreted in the context of the absolute cell counts (cells/L). Performed By: #### C BCDF #### [address] [address] Neutrophils/100 WBC (Bld) 54.1 % Normal 40.0 - 80.0 [facility] Comment on above: Performed By: #### C BCDF #### [address] [address] Nucleated RBC/100 WBC (Bld) [Ratio] 0.2 /100 WBC Normal [facility] Comment on above: Performed By: #### C BCDF #### [address] [address] Platelets (Bld) [#/Vol] 249 10*3/uL Normal 150 - 450 [facility] Comment on above: Performed By: #### C BCDF #### [address] [address] RBC (Bld) [#/Vol] 3.92 x10E12/L Low 4.00 - 5.20 [facility] Comment on above: Performed By: #### C BCDF #### [address] [address] WBC (Bld) [#/Vol] 5.8 10*3/uL Normal 4.4 - 11.3 [facility] Comment on above: Performed By: #### C BCDF #### [address] [address] COMPREHENSIVE PANELon 2020 Albumin [Mass/Vol] 4.0 g/dL Normal 3.4 - 5.0 [facility] Comment on above: Performed By: #### C MP #### [address] [address] ALP [Catalytic activity/Vol] 60 U/L Normal 33 - 136 [facility] Comment on above: Performed By: #### C MP #### [address] [address] ALT [Catalytic activity/Vol] 17 U/L Normal 7 - 45 [facility] Comment on above: Result Comment: Melida ents treated with Sulfasalazine may generate falsely decreased results for ALT. Performed By: #### C MP #### [address] [address] Anion gap [Moles/Vol] 10 mmol/L Normal 10 - 20 [facility] Comment on above: Performed By: #### C MP #### [address] [address] AST [Catalytic activity/Vol] 17 U/L Normal 9 - 39 [facility] Comment on above: Performed By: #### C MP #### [address] [address] Bilirubin [Mass/Vol] 0.4 mg/dL Normal 0.0 - 1.2 [facility] Comment on above: Performed By: #### C MP #### [address] [address] Calcium [Mass/Vol] 9.4 mg/dL Normal 8.6 - 10.3 [facility] Comment on above: Performed By: #### C MP #### [address] [address] Chloride [Moles/Vol] 104 mmol/L Normal 98 - 107 [facility] Comment on above: Performed By: #### C MP #### [address] [address] Creatinine [Mass/Vol] 1.02 mg/dL Normal 0.50 - 1.05 [facility] Comment on above: Performed By: #### C MP #### [address] [address] GFR- AM. 65 mL/min/1.73m2 Normal >60 [facility] Comment on above: Result Comment: CALC ULATIONS OF ESTIMATED GFR ARE PERFORMED USING THE MDRD STUDY EQUATION FOR THE IDMS-TRACEABLE CREATININE METHODS. CLIN CHEM 2007;53:766-72 Performed By: #### C MP #### [address] [address] GFR-NON AM. 54 mL/min/1.73m2 Abnormal >60 [facility] Comment on above: Performed By: #### C MP #### [address] [address] Glucose [Mass/Vol] 92 mg/dL Normal 74 - 99 [facility] Comment on above: Performed By: #### C MP #### [address] [address] HCO3 (Bld) [Moles/Vol] 28 mmol/L Normal 21 - 32 [facility] Comment on above: Performed By: #### C MP #### [address] [address] Potassium [Moles/Vol] 4.3 mmol/L Normal 3.5 - 5.3 [facility] Comment on above: Performed By: #### C MP #### [address] [address] Protein [Mass/Vol] 6.8 g/dL Normal 6.4 - 8.2 [facility] Comment on above: Performed By: #### C MP #### [address] [address] Sodium [Moles/Vol] 138 mmol/L Normal 136 - 145 [facility] Comment on above: Performed By: #### C MP #### [place] [id number] Urea nitrogen [Mass/Vol] 23 mg/dL Normal 6 - 23 [facility] Comment on above: Performed By: #### C MP #### [place] [id number] VALPROIC ACIDon 11-14-2020 VALPROIC ACID 54 ug/mL Normal 50 - 100 [facility] Comment on above: Performed By: #### V ALPR #### [place] [id number] CBC AND DIFFERENTIALon 08-15 Basophils (Bld) [#/Vol] 0.10 10*3/uL Normal 0.00 - 0.10 [facility] Comment on above: Performed By: #### C BCDF #### [place] [id number] Basophils/100 WBC (Bld) 1.0 % Normal 0.0 - 2.0 [facility] Comment on above: Performed By: #### C BCDF #### [place] [id number] Eosinophils (Bld) [#/Vol] 0.30 10*3/uL Normal 0.00 - 0.70 [facility] Comment on above: Performed By: #### C BCDF #### [place] [id number] Eosinophils/100 WBC (Bld) 5.4 % Normal 0.0 - 6.0 [facility] Comment on above: Performed By: #### C BCDF #### [place] [id number] Erythrocyte distribution width (RBC) [Ratio] 13.9 % Normal 11.5 - 14.5 [facility] Comment on above: Performed By: #### C BCDF #### [place] [id number] Hematocrit (Bld) [Volume fraction] 38.0 % Normal 36.0 - 46.0 [facility] Comment on above: Performed By: #### C BCDF #### [place] [id number] Hemoglobin (Bld) [Mass/Vol] 12.5 g/dL Normal 12.0 - 16.0 [facility] Comment on above: Performed By: #### C BCDF #### [address] [address] Lymphocytes (Bld) [#/Vol] 1.80 10*3/uL Normal 1.20 - 4.80 [facility] Comment on above: Performed By: #### C BCDF #### [address] [address] Lymphocytes/100 WBC (Bld) 31.2 % Normal 13.0 - 44.0 [facility] Comment on above: Performed By: #### C BCDF #### [address] [address] MCHC (RBC) [Mass/Vol] 32.9 g/dL Normal 32.0 - 36.0 [facility] Comment on above: Performed By: #### C BCDF #### [address] [address] MCV (RBC) [Entitic vol] 96 fL Normal 80 - 100 [facility] Comment on above: Performed By: #### C BCDF #### [address] [address] Monocytes (Bld) [#/Vol] 0.70 10*3/uL Normal 0.10 - 1.00 [facility] Comment on above: Performed By: #### C BCDF #### [address] [address] Monocytes/100 WBC (Bld) 11.6 % Normal 2.0 - 10.0 [facility] Comment on above: Performed By: #### C BCDF #### [address] [address] Neutrophils (Bld) [#/Vol] 2.90 10*3/uL Normal 1.20 - 7.70 [facility] Comment on above: Result Comment: Perc ent differential counts (%) should be interpreted in the context of the absolute cell counts (cells/L). Performed By: #### C BCDF #### [address] [address] Neutrophils/100 WBC (Bld) 50.8 % Normal 40.0 - 80.0 [facility] Comment on above: Performed By: #### C BCDF #### [address] [address] Nucleated RBC/100 WBC (Bld) [Ratio] 0.1 /100 WBC Normal [facility] Comment on above: Performed By: #### C BCDF #### [address] [address] Platelets (Bld) [#/Vol] 256 10*3/uL Normal 150 - 450 [facility] Comment on above: Performed By: #### C BCDF #### [address] [address] RBC (Bld) [#/Vol] 3.94 x10E12/L Low 4.00 - 5.20 [facility] Comment on above: Performed By: #### C BCDF #### [address] [address] WBC (Bld) [#/Vol] 5.7 10*3/uL Normal 4.4 - 11.3 [facility] Comment on above: Performed By: #### C BCDF #### [address] [address] COMPREHENSIVE PANELon 2020 Albumin [Mass/Vol] 4.0 g/dL Normal 3.4 - 5.0 [facility] Comment on above: Performed By: #### C MP #### [address] [address] ALP [Catalytic activity/Vol] 57 U/L Normal 33 - 136 [facility] Comment on above: Performed By: #### C MP #### [address] [address] ALT [Catalytic activity/Vol] 14 U/L Normal 7 - 45 [facility] Comment on above: Result Comment: Melida ents treated with Sulfasalazine may generate falsely decreased results for ALT. Performed By: #### C MP #### [address] [address] Anion gap [Moles/Vol] 9 mmol/L Low 10 - 20 [facility] Comment on above: Performed By: #### C MP #### [address] [address] AST [Catalytic activity/Vol] 12 U/L Normal 9 - 39 [facility] Comment on above: Performed By: #### C MP #### [address] [address] Bilirubin [Mass/Vol] 0.4 mg/dL Normal 0.0 - 1.2 [facility] Comment on above: Performed By: #### C MP #### [address] [address] Calcium [Mass/Vol] 8.9 mg/dL Normal 8.6 - 10.3 [facility] Comment on above: Performed By: #### C MP #### [address] [address] Chloride [Moles/Vol] 106 mmol/L Normal 98 - 107 [facility] Comment on above: Performed By: #### C MP #### [address] [address] Creatinine [Mass/Vol] 0.87 mg/dL Normal 0.50 - 1.05 [facility] Comment on above: Performed By: #### C MP #### [place] [id number] GFR- AM. >60 Normal >60 [facility] Comment on above: Result Comment: CALC ULATIONS OF ESTIMATED GFR ARE PERFORMED USING THE MDRD STUDY EQUATION FOR THE IDMS-TRACEABLE CREATININE METHODS. CLIN CHEM 2007;53:766-72 Performed By: #### C MP #### [address] [address] GFR-NON AM. >60 Normal >60 [facility] Comment on above: Performed By: #### C MP #### [address] [address] Glucose [Mass/Vol] 80 mg/dL Normal 74 - 99 [facility] Comment on above: Performed By: #### C MP #### [address] [address] HCO3 (Bld) [Moles/Vol] 29 mmol/L Normal 21 - 32 [facility] Comment on above: Performed By: #### C MP #### [address] [address] Potassium [Moles/Vol] 4.3 mmol/L Normal 3.5 - 5.3 [facility] Comment on above: Performed By: #### C MP #### [address] [address] Protein [Mass/Vol] 6.7 g/dL Normal 6.4 - 8.2 [facility] Comment on above: Performed By: #### C MP #### [address] [address] Sodium [Moles/Vol] 140 mmol/L Normal 136 - 145 [facility] Comment on above: Performed By: #### C MP #### [address] [address] Urea nitrogen [Mass/Vol] 28 mg/dL High 6 - 23 [facility] Comment on above: Performed By: #### C MP #### [address] [address] VALPROIC ACIDon 08-15-2020 VALPROIC ACID 46 ug/mL Low 50 - 100 [facility] Comment on above: Performed By: #### V ALPR #### [address] [address] VALPROIC ACIDon 02-29-2020 VALPROIC ACID 46 ug/mL Low 50 - 100 [facility] Comment on above: Performed By: #### V ALPR #### [address] [address] .Auto Diffon 02-14-2020 Ammonia (P) [Mass/Vol] 0.50 10 3/mcL Normal 0.15-1.00 [facility] ([place]) Comment on above: Performed By: #### C BC, ADIFF, ANEU, FE, TSH, LIPID, CMP, GFR, IBC #### [address] [address] Basophils (Bld) [#/Vol] 0.00 10 3/mcL Normal 0.00-0.19 [facility] ([place]) Comment on above: Performed By: #### C BC, ADIFF, ANEU, FE, TSH, LIPID, CMP, GFR, IBC #### [address] [address] Basophils/100 WBC (Bld) 0.9 % Normal 0.0-2.5 [facility] ([place]) Comment on above: Performed By: #### C BC, ADIFF, ANEU, FE, TSH, LIPID, CMP, GFR, IBC #### [address] [address] Eosinophils (Bld) [#/Vol] 0.20 10 3/mcL Normal 0.00-0.40 [facility] ([place]) Comment on above: Performed By: #### C BC, ADIFF, ANEU, FE, TSH, LIPID, CMP, GFR, IBC #### [address] [address] Eosinophils/100 WBC (Bld) 3.7 % Normal 0.0-7.0 [facility] ([place]) Comment on above: Performed By: #### C BC, ADIFF, ANEU, FE, TSH, LIPID, CMP, GFR, IBC #### [address] [address] Lymphocytes (Bld) [#/Vol] 1.40 10 3/mcL Normal 0.77-3.85 [facility] ([place]) Comment on above: Performed By: #### C BC, ADIFF, ANEU, FE, TSH, LIPID, CMP, GFR, IBC #### [address] [address] Lymphocytes/100 WBC (Bld) 27.5 % Normal 10.0-50.0 [facility] ([place]) Comment on above: Performed By: #### C BC, ADIFF, ANEU, FE, TSH, LIPID, CMP, GFR, IBC #### [address] [address] Monocytes/100 WBC (Bld) 10.7 % Normal 1.7-13.0 [facility] ([place]) Comment on above: Performed By: #### C BC, ADIFF, ANEU, FE, TSH, LIPID, CMP, GFR, IBC #### [address] [address] Neutrophils/100 WBC (Bld) 57.2 % Normal 37.0-80.0 [facility] ([place]) Comment on above: Performed By: #### C BC, ADIFF, ANEU, FE, TSH, LIPID, CMP, GFR, IBC #### [address] [address] .GFRon 02-14-2020 GFR 60 ml/min/1.73sqm Normal [facility] ([place]) Comment on above: Result Comment: GFR Population [...] #### G ALBA, B12, IFES, SPE #### [address] [address] #### VITB6, B1WB #### [address] [address] GFR Non- 49 ml/min/1.73sqm Normal [facility] ([place]) Comment on above: Result Comment: GFR Population [...] #### G ALBA, B12, IFES, SPE #### [place] [address] #### VITB6, B1WB #### [address] [address] .NEUABSon 02-14-2020 Neutrophils (Bld) [#/Vol] 2.90 10 3/mcL Normal 2.85-6.16 [facility] ([place]) Comment on above: Performed By: #### C BC, ADIFF, ANEU, FE, TSH, LIPID, CMP, GFR, IBC #### [address] [address] CBCon 02-14-2020 Erythrocyte distribution width (RBC) [Ratio] 14.0 % Normal 11.5-14.5 [facility] ([place]) Comment on above: Performed By: #### C BC, ADIFF, ANEU, FE, TSH, LIPID, CMP, GFR, IBC #### [place] [address] Hematocrit (Bld) [Volume fraction] 37.0 % Normal 37.0-47.0 [facility] ([place]) Comment on above: Performed By: #### C BC, ADIFF, ANEU, FE, TSH, LIPID, CMP, GFR, IBC #### [place] [id number] Hemoglobin (Bld) [Mass/Vol] 12.3 G/dL Normal 12.0-16.0 [facility] ([place]) Comment on above: Performed By: #### C BC, ADIFF, ANEU, FE, TSH, LIPID, CMP, GFR, IBC #### [address] [address] MCH (RBC) [Entitic mass] 32.0 pg High 27.0-31.2 [facility] ([place]) Comment on above: Performed By: #### C BC, ADIFF, ANEU, FE, TSH, LIPID, CMP, GFR, IBC #### [address] [address] MCHC (RBC) [Mass/Vol] 33.3 G/dL Normal 33.0-37.0 [facility] ([place]) Comment on above: Performed By: #### C BC, ADIFF, ANEU, FE, TSH, LIPID, CMP, GFR, IBC #### [address] [address] MCV (RBC) [Entitic vol] 96.3 fL High 80.0-94.0 [facility] ([place]) Comment on above: Performed By: #### C BC, ADIFF, ANEU, FE, TSH, LIPID, CMP, GFR, IBC #### [address] [address] Platelet mean volume (Bld) [Entitic vol] 9.0 fL Normal 7.4-10.4 [facility] ([place]) Comment on above: Performed By: #### C BC, ADIFF, ANEU, FE, TSH, LIPID, CMP, GFR, IBC #### [address] [address] Platelets (Bld) [#/Vol] 253 10 3/mcL Normal 130-400 [facility] ([place]) Comment on above: Performed By: #### C BC, ADIFF, ANEU, FE, TSH, LIPID, CMP, GFR, IBC #### [address] [address] RBC (Bld) [#/Vol] 3.84 10 6/mcL Low 4.20-5.40 [facility] ([place]) Comment on above: Performed By: #### C BC, ADIFF, ANEU, FE, TSH, LIPID, CMP, GFR, IBC #### [address] [address] WBC (Bld) [#/Vol] 5.10 10 3/mcL Normal 4.60-10.80 [facility] ([place]) Comment on above: Performed By: #### C BC, ADIFF, ANEU, FE, TSH, LIPID, CMP, GFR, IBC #### [address] [address] CMPon 02-14-2020 Albumin [Mass/Vol] 3.4 G/dL Normal 3.4-4.8 formerly [facility] ([place]) Comment on above: Performed By: #### Anastacio SANABRIA IFSABINO, SPE #### [place] [address] #### VITB6, B1WB #### [place] [id number] Albumin/Globulin [Mass ratio] 1.0 {ratio} Low 1.1-2.5 [facility] ([place]) Comment on above: Performed By: #### Anastacio SANABRIA, IFES, SPE #### [place] [address] #### VITB6, B1WB #### [address] [address] ALP [Catalytic activity/Vol] 74 U/L Normal 40-135 [facility] ([place]) Comment on above: Performed By: #### Anastacio SANABRIA, IFES, SPE #### [place] [address] #### VITB6, B1WB #### [address] [address] ALT [Catalytic activity/Vol] 24 U/L Normal 10-35 [facility] ([place]) Comment on above: Performed By: #### Sheila WILLIS, B12, IFES, SPE #### [place] [address] #### VITB6, B1WB #### [address] [address] AST [Catalytic activity/Vol] 16 U/L Normal 10-40 [facility] ([place]) Comment on above: Performed By: #### Anastacio SANABRIA IFSABINO, SPE #### [address] [address] #### VITB6, B1WB #### [address] [address] Bili Total 0.4 mg/dL Normal 0.2-1.0 [facility] ([place]) Comment on above: Result Comment: Use of this assay is not recommended for patients undergoing treatment with eltrombopag due to the potential for falsely elevated results. Performed By: #### Anastacio SANABRIA IFSABINO, SPE #### [place] [address] #### VITB6, B1WB #### [address] [address] Calcium [Mass/Vol] 9.2 mg/dL Normal 8.4-10.2 [facility] ([place]) Comment on above: Performed By: #### Anastacio SANABRIA IFSABINO, SPE #### [place] [address] #### VITB6, B1WB #### [address] [address] Chloride [Moles/Vol] 106 mmol/L Normal 98-107 [facility] ([place]) Comment on above: Performed By: #### Anastacio SANABRIA IFES, SPE #### [place] [address] #### VITB6, B1WB #### [address] [address] CO2 [Moles/Vol] 32 mmol/L High 23-31 [facility] ([place]) Comment on above: Performed By: #### Anastacio SANABRIA, IFES, SPE #### [place] [address] #### VITB6, B1WB #### [address] [address] Creatinine [Mass/Vol] 1.10 mg/dL High 0.55-1.02 [facility] ([place]) Comment on above: Performed By: #### Anastacio SANABRIA, IFSABINO, SPE #### [place] [address] #### VITB6, B1WB #### [address] [address] Electrolyte Balance 5.0 mEq/L Normal [facility] ([place]) Comment on above: Performed By: #### Sheila WILLIS, Anastacio, IFES, SPE #### [place] [address] #### VITB6, B1WB #### [address] [address] Globulin (S) [Mass/Vol] 3.4 G/dL Normal [facility] ([place]) Comment on above: Performed By: #### Anastacio SANABRIA, IFES, SPE #### [place] [address] #### VITB6, B1WB #### [address] [address] Glucose [Mass/Vol] 86 mg/dL Normal 80-115 [facility] ([place]) Comment on above: Performed By: #### Anastacio SANABRIA, IFES, SPE #### [place] [address] #### VITB6, B1WB #### [address] [address] Potassium [Moles/Vol] 5.6 mmol/L High 3.5-5.1 [facility] ([place]) Comment on above: Performed By: #### Sheila WILLIS, B12, IFES, SPE #### [place] [address] #### VITB6, B1WB #### [address] [address] Protein [Mass/Vol] 6.8 G/dL Normal 6.4-8.2 [facility] ([place]) Comment on above: Performed By: #### G ALBA, B12, IFES, SPE #### [place] [address] #### VITB6, B1WB #### [address] [address] Sodium [Moles/Vol] 143 mmol/L Normal 136-145 [facility] ([place]) Comment on above: Performed By: #### Sheila WILLIS, B12, IFES, SPE #### [place] [address] #### VITB6, B1WB #### [address] [address] Urea nitrogen [Mass/Vol] 24 mg/dL High 7-18 [facility] ([place]) Comment on above: Performed By: #### Sheila WILLIS, B12, IFES, SPE #### [place] [address] #### VITB6, B1WB #### [address] [address] Urea nitrogen/Creatinine [Mass ratio] 22 ratio Normal 7-27 [facility] ([place]) Comment on above: Performed By: #### Sheila WILLIS, B12, IFES, SPE #### [place] [address] #### VITB6, B1WB #### [address] [address] FEon 02-14-2020 Iron [Mass/Vol] 59 ug/dL Normal 50-170 [facility] ([place]) Comment on above: Performed By: #### G ALBA, B12, IFES, SPE #### [place] [address] #### VITB6, B1WB #### [address] [address] IBCon 02-14-2020 TIBC 289 mcg/dL Normal 250-450 [facility] ([place]) Comment on above: Performed By: #### G ALBA, B12, IFES, SPE #### [place] [address] #### VITB6, B1WB #### [address] [address] LIPIDon 02-14-2020 Cholesterol [Mass/Vol] 188 mg/dL Normal 0-200 [facility] ([place]) Comment on above: Result Comment: Chol esterol Reference Interval: Less than 200 Desirable 200-239 Borderline high risk 240 and above High risk Performed By: #### Anastacio SANABRIA, IFES, SPE #### [place] [address] #### VITB6, B1WB #### [address] [address] Cholesterol in HDL [Mass/Vol] 61 mg/dL High 40-60 [facility] ([place]) Comment on above: Performed By: #### Anastacio SANABRIA IFSABINO, SPE #### [place] [address] #### VITB6, B1WB #### [address] [address] Cholesterol in LDL [Mass/Vol] 117 mg/dL Normal 0-130 [facility] ([place]) Comment on above: Performed By: #### Anastacio SANABRIA, IFES, SPE #### [place] [address] #### VITB6, B1WB #### [address] [address] Triglyceride [Mass/Vol] 52 mg/dL Normal 0-150 [facility] ([place]) Comment on above: Result Comment: Trig lyceride Reference Interval: Less than 150 Normal 150-199 Borderline high risk 200-499 High risk 500 or higher Very high risk Performed By: #### Anastacio SANABRIA, IFES, SPE #### [place] [address] #### VITB6, B1WB #### [address] [address] TSHon 02-14-2020 TSH Qn 2.48 mcIU/mL Normal 0.36-3.74 [facility] ([place]) Comment on above: Performed By: #### G Anastacio WILLIS, IFSABINO, SPE #### [place] [id number] #### VITB6, B1WB #### [address] [address] OVAPon 11-23-2019 Ova & Parasite exam See Results Below Normal [facility] ([place]) Comment on above: Result Comment: Spec imen Desc: Stool Sp. Request/Comment: Specimen received in Ova and Parasite Kit. Culture Result No parasites seen. Report Status Pending Performed By: [place] [address] Pediatric Psychiatrist: Billie Talbot III#: [id number] Phone#: Performed By: #### O VAP #### [place] [id number] SPEon 06-02-2019 SPE Interpretation Normal serum protein electrophoresis pattern. No abnormality detected. Normal [facility] ([place]) Comment on above: Result Comment: Elec tronically Signed by: CHACE ADAMES 06/02/2019 11:13 EDT Performed By: #### Anastacio SANABRIA, IFSABINO, SPE #### [place] [address] #### VITB6, B1WB #### [address] [address] B1WBon 06-01-2019 Vitamin B1 (TDP), Whole Blood 274.6 nmol/L High 84.0-213.0 [facility] ([place]) Comment on above: Result Comment: This assay measures the concentration of thiamine diphosphate (TDP), the primary active form of vitamin B1. Approximately 90 percent of vitamin B1 present in whole blood is TDP. Thiamine and thiamine monophosphate, which comprise the remaining 10 percent, are not measured. This test was developed and its performance characteristics determined by [facility] ([facility]). It has not been cleared or approved by the FDA. [facility] is regulated under CLIA as qualified to perform high complexity testing. This test is used for clinical purposes. It should not be regarded as investigational or for research. Performed By: [facility] [address] [place] [address] Pediatric Psychiatrist: Debbie Barajas M.D. [facility]#: [id number] Phone#: Performed By: #### G ALBA, B12, IFES, SPE #### [place] [address] #### VITB6, B1WB #### [address] 06-01-2019 Albumin [Mass/Vol] 3.7 G/dL Normal 3.3-5.0 [facility] ([place]) Comment on above: Performed By: #### Sheila WILLIS, B12, IFES, SPE #### [place] [address] #### VITB6, B1WB #### [place] [address] Alpha 1 0.2 G/dL Normal 0.1-0.4 [facility] ([place]) Comment on above: Performed By: #### G ALBA, B12, IFES, SPE #### [place] [address] #### VITB6, B1WB #### [place] [address] Alpha 2 1.1 G/dL Normal 0.6-1.2 [facility] ([place]) Comment on above: Performed By: #### G ALBA, B12, IFES, SPE #### [place] [address] #### VITB6, B1WB #### [address] [address] Beta 1.0 G/dL Normal 0.6-1.3 [facility] ([place]) Comment on above: Performed By: #### G ALBA, B12, IFES, SPE #### [address] [address] #### VITB6, B1WB #### [address] [address] Gamma 1.2 G/dL Normal 0.7-1.6 [facility] ([place]) Comment on above: Performed By: #### G ALBA, B12, IFES, SPE #### [address] [address] #### VITB6, B1WB #### [address] [address] [id number] 06-01-2019 Vitamin B6 Lvl 281.[address] [facility] ([place]) Comment on above: Result Comment: Refe rence range: 20.0 to 125.0 Unit: nmol/L (NOTE) INTERPRETIVE INFORMATION: Vitamin B6 (Pyridoxal 5-Phosphate) Pyridoxal 5'-phosphate measured in a specimen collected following an 8-hour or overnight fast accurately indicates vitamin B6 nutritional status. Non-fasting specimen concentration reflects recent vitamin intake. Test developed and characteristics determined by [facility]. See Compliance Statement B: [facility] Performed by [facility], [address] [place] [id number] [email or web address], Thee Choi MD, Lab. Director Performed By: #### G ALBA, B12, IFES, SPE #### [address] [address] #### VITB6, B1WB #### [address] [address] B12on 05-28-2019 Cobalamin (Vitamin B12) [Mass/Vol] 1263 pg/mL High 211-911 [facility] ([place]) Comment on above: Performed By: #### G ALBA, B12, IFES, SPE #### [address] [address] #### VITB6, B1WB #### [address] [address] IFESon 05-28-2019 IFES Interpretation Immunofixation electrophoresis of serum shows the presence of only polyclonal immunoglobulins (IgG,A,M,Stuart and Lambda), No monoclonal protein detected. Normal [facility] ([place]) Comment on above: Result Comment: Elec tronically Signed by: CHRISTIANE TRISTAN 05/28/2019 15:10 EDT Performed By: #### G ALBA, B12, IFES, SPE #### [place] [address] #### VITB6, B1WB #### [place] [id number] SPEon 05-28-2019 Protein [Mass/Vol] 7.2 G/dL Normal 6.0-8.5 [facility] ([place]) Comment on above: Performed By: #### G ALBA, B12, IFES, SPE #### [place] [address] #### VITB6, B1WB #### [place] [address] GLUon 05-27-2019 Glucose [Mass/Vol] 91 mg/dL Normal 80-115 [facility] ([place]) Comment on above: Performed By: #### G ALBA, B12, IFES, SPE #### [place] [address] #### VITB6, B1WB #### [address] [address] Office Visit: [facility] 06-12-20 17 Documentation of current medications (procedure) Done Invalid Interpretation Code [facility] Work Phone: Fall risk assessment No Invalid Interpretation Code [facility] Work Phone: Tobacco use [facility] Former smoker Invalid Interpretation Code [facility] Work Phone: Clinical Lists Update: Prelo matrix drier tender 04-30-2017 Left ventricular Ejection fraction 60 % Invalid Interpretation Code [facility] Work Phone: Office Visiton 04-17-2017 Documentation of current medications (procedure) Done Invalid Interpretation Code [facility] Work Phone: Fall risk assessment No Invalid Interpretation Code [facility] Work Phone: Tobacco use [facility] Former smoker Invalid Interpretation Code [facility] Work Phone: [phone] Replaced Document: Ventura WILSON Observationson 04-17-2017 EKG QRS axis -9 deg Invalid Interpretation Code [facility] Work Phone: [phone] electrocardiogram interpretation Sinus Rhythm WITHIN NORMAL LIMITS Invalid Interpretation Code [facility] Work Phone: [phone] GE use only - for [employer] import when terms are not otherwise specified 429 ms Invalid Interpretation Code [facility] Work Phone: [phone] Interpretation Sinus Rhythm WITHIN NORMAL LIMITS Invalid Interpretation Code [facility] Work Phone: [phone] P [place] 65 deg Invalid Interpretation Code [facility] Work Phone: [phone] P wave axis, electrocardiogram 65 deg Invalid Interpretation Code [facility] Work Phone: [phone] [place] Interval 136 ms Invalid Interpretation Code [facility] Work Phone: [phone] [place] interval, electrocardiogram 136 ms Invalid Interpretation Code [facility] Work Phone: [phone] Pulse (Heart Rate) 78 /min Invalid Interpretation Code [facility] Work Phone: [phone] QRS axis, electrocardiogram -9 deg Invalid Interpretation Code [facility] Work Phone: [phone] QRS Duration 84 ms Invalid Interpretation Code [facility] Work Phone: [phone] QRS duration, electrocardiogram 84 ms Invalid Interpretation Code [facility] Work Phone: [phone] QT Interval new path ms Invalid Interpretation Code [facility] Work Phone: [phone] QT interval, electrocardiogram new path ms Invalid Interpretation Code [facility] Work Phone: [phone] QTc Naylor 429 ms Invalid Interpretation Code [employer] Work Phone: [phone] T [place] 25 deg Invalid Interpretation Code [facility] Work Phone: [phone] T wave axis, electrocardiogram 25 deg Invalid Interpretation Code [employer] Work Phone: [phone] Discharge Summaryon 02-22-20 17 Discharge Summary Send Summary:Note Recipients: Prosper Hay MDDischarge:Summary:Admi ssion Date: .14-Feb-2017 23:05:00Discharge Date: [id number] Physician at Discharge: Prosper HayAdmission Reason: Bipolar d/o.(1)Final Discharge Diagnoses: bipolar disorderProcedures: noneCondition at Discharge: FairDisposition at Discharge: .HomeVital Signs: T P R BP [id number] 36.5 16 100%Date/Time 02/21 5:58 02/21 5:58 02/21 5:58Range (36.5C - 37.1C ) (16 - 18 ) (98% - 100% )Highest temp of 37.1 C was recorded at 02/20 18:21Hospital Course:Mrs. Oliva is a 66 yo female with a PPH of bipolar I disorder wasadmitted to [facility] due to difficult outpatient medication management. Sheinitially presented to [facility] ED with AJITH (cr 3.56, base 1.1) [...] states she plans on doing activities at [facility] near her house and will follow up [...] ofaggression/violence towards others.? Protective factors include marriage,children, latter-day beliefs, social supports. Treatment team plans to modifyrisk by instructing to make home safe (pistol is stored elsewhere),medication management, establishment with new outpatient doctor, access toin-home medical support, and information about additional [facility] and adult [facility].Psychiatric Care:Psychiatric Continuing Care Plan:Reason [...] outpatient provider advises otherwise.Questions After Hospitalization:Phone Number: [address] For Results of Any Studies Pending at Discharge: Phone: [address] Discharge Information:and Continuing Care:Discharge Instructions:Activity: activity as tolerated. May shower.. May not drive.Nutrition/Diet: regularFollow Up Appointments:Follow-Up Appointment 01: Physician/Dept/Service: Dr. Hay [facility] Reason for Referral: Follow-up psychiatry Scheduled Date/Time: 04-Mar-2017 16:00 Location: [address], [place] [address] [phone] Appointment 02: Physician/Dept/Service: Please follow up with [...] list of all of the prescription andnonprescription (jkuz-rtg-rmgrecf) medicines you are taking, as well as anyproducts such as vitamins, minerals, or other dietary supplements. You shouldbring this list with you each time you visit a doctor or if you are admitted toa hospital. It is also important information to carry with you in case ofemergencies..: Electronic Signatures:Catrachito MadridDO (Resident)) (Signed 21-Feb-2017 09:36) Authored: Send Summary, Summary Content, Ongoing Care, AttestationProsper Hay) (Signed 21-Feb-2017 11:41) Authored: Send Summary, Summary Content, Psychiatric Care, Ongoing Care,Attestation Co-Signer: Summary Content, Ongoing Care, AttestationAline Carrasco (CLIN COOR) (Signed 21-Feb-2017 15:35) Authored: Send Summary, Summary Content, Psychiatric Care, Ongoing CareLast Updated: 21-Feb-2017 15:35 by Aline Carrasco (CLIN COOR)References:1. Data Referenced From Consult-Medicine 02/17/2017 3:57 PM Normal [facility] CT HEAD WO CONTon 02-17-2017 CT HEAD WO CONT Name: RICARDA OLIVA STUDY:CT HEAD WO CONT; 02/17/2017 12:36 pm [...] signed by: KAMILAH LIAO MD [facility] Clinical Lists Update: Prelo matrix drier tender 12-24-2016 Alanine aminotransferase (ALT) 18 U/L Invalid Interpretation Code [facility] Work Phone: [phone] Albumin 2.8 g/dL Low [facility] Work [phone] Alkaline phosphatase (ALP) 56 U/L Invalid Interpretation Code [facility] Work Phone: [phone] Aspartate aminotransferase (AST) 22 U/L Invalid Interpretation Code [facility] Work Phone: [phone] Bilirubin (direct) 0.11 mg/dL Invalid Interpretation Code [facility] Work Phone: [phone] Bilirubin (total) 0.30 mg/dL Invalid Interpretation Code [facility] Work Phone: [phone] Erythrocytes (RBC) 3.56 10*6/uL Low [facility] Work Phone: [phone] Hematocrit (HCT) 35.1 % Low [facility] Work Phone: [phone] Hemoglobin (HGB) 11.6 g/dL Low [facility] Work Phone: [phone] MCH 32.6 pg High [facility] Work Phone: [phone] MCHC 33.0 g/dL Invalid Interpretation Code [facility] Work Phone: [phone] MCV 98.6 fL Invalid Interpretation Code [facility] Work [phone] Platelets 158 10*3/mm3 Invalid Interpretation Code [facility] Work Phone: [phone] PMV by Tomas 11.0 fL Invalid Interpretation Code [facility] Work Phone: [phone] Protein 6.7 g/dL Invalid Interpretation Code [facility] Work Phone: [phone] RDW-CA 15.9 % High [facility] Work Phone: [phone] WBC (Leukocytes) 5.5 10*3/uL Invalid Interpretation Code [facility] Work Phone: [phone] Clinical Lists Update: 10-17-2016 BUN/Creatinine Ratio 21 mg/mg Invalid Interpretation Code [facility] Work Phone: [phone] Calcium 9.6 mg/dL Invalid Interpretation Code [facility] Work Phone: [phone] Chloride 100 mmol/L Invalid Interpretation Code [facility] Work Phone: [phone] CO2 31 mmol/L Invalid Interpretation Code [facility] Work Phone: [phone] Creatinine 1.4 mg/dL High [facility] Work Phone: [phone] Globulin 2.4 g/dL Invalid Interpretation Code [facility] Work Phone: [phone] Glucose 118 mg/dL High [facility] Work Phone: [phone] Glucose mass conc 118 mg/dL High [facility] Work Phone: [phone] Potassium 4.5 mmol/L Invalid Interpretation Code [facility] Work Phone: [phone] Sodium 140 mmol/L Invalid Interpretation Code [facility] Work Phone: [phone] Urea nitrogen 30 mg/dL High [facility] Work Phone: [phone] Clinical Lists Update: [facility]09-07-2016 Cholesterol 177 mg/dL Invalid Interpretation Code [facility] Work Phone: [phone] HDL Cholesterol 66 mg/dL High [facility] Work Phone: [phone] LDL Cholesterol 90 mg/dL Invalid Interpretation Code [facility] Work Phone: [phone] Thyroid stimulating hormone (TSH) 2.04 u[iU]/mL Invalid Interpretation Code [facility] Work Phone: [phone] Thyroxine (T4) 6.1 ug/dL Invalid Interpretation Code [facility] Work Phone: [phone] Triglyceride 104 mg/dL Invalid Interpretation Code [facility] Work Phone: [phone] Cholesterol in HDL mass conc 66 mg/dL [facility] Work Phone: [phone] Cholesterol in LDL mass conc 90 mg/dL [facility] Work Phone: [phone] Cholesterol mass conc 177 mg/dL [place] [facility] Work Phone: [phone] Triglyceride mass conc 104 mg/dL [facility] Work Phone: [phone] Vital Signs Date Time Vital Sign Value Performing Clinician Facility 08-24-2024 14:05-0500 Body mass index (BMI) [Ratio] 24.26 kg/m2 Prosper Hay MD PhD Work Phone: [facility] 08-24-2024 14:05-0500 Body temperature 94.6 [degF] Prosper Hay MD PhD Work Phone: [facility] 08-24-2024 14:05-0500 Body weight 52.66 kg Prosper Hay MD PhD Work Phone: [facility] 08-24-2024 14:05-0500 Diastolic blood pressure 78 mm[Hg] Prosper Hay MD PhD Work Phone: [facility] 08-24-2024 14:05-0500 Heart rate 73 /min Prosper Hay MD PhD Work Phone: [facility] 08-24-2024 14:05-0500 Respiratory rate 16 /min Prosper Hay MD PhD Work Phone: [facility] 08-24-2024 14:05-0500 Systolic blood pressure 120 mm[Hg] Prosper Hay MD PhD Work Phone: [facility] 02-17-2024 12:56-0400 Body mass index (BMI) [Ratio] 25.02 kg/m2 Prosper Hay MD PhD Work Phone: [facility] 02-17-2024 12:56-0400 Body temperature 97.39 [degF] Prosper Hay MD PhD Work Phone: [facility] 02-17-2024 12:56-0400 Body weight 54.3 kg Prosper Hay MD PhD Work Phone: [facility] 02-17-2024 12:56-0400 Diastolic blood pressure 74 mm[Hg] Prosper Hay MD PhD Work Phone: [facility] 02-17-2024 12:56-0400 Heart rate 69 /min Prosper Hay MD PhD Work Phone: [facility] 02-17-2024 12:56-0400 Respiratory rate 18 /min Prosper Hay MD PhD Work Phone: [facility] 02-17-2024 12:56-0400 Systolic blood pressure 144 mm[Hg] Prosper Hay MD PhD Work Phone: [facility] 09-12-2022 09:55-0500 Body height 147.3 cm Inocente Deras APRN - LOSS PREVENTION RESEARCH ENGINEER Work Phone: [employer] 09-12-2022 09:55-0500 Body mass index (BMI) [Ratio] 25.67 kg/m2 Inocente Deras APRN - LOSS PREVENTION RESEARCH ENGINEER Work Phone: [employer] 09-12-2022 09:55-0500 Body temperature 97.5 [degF] Inocente Deras APRN - LOSS PREVENTION RESEARCH ENGINEER Work Phone: [employer] 09-12-2022 09:55-0500 Body weight 55.7 kg Inocente Deras APRN - LOSS PREVENTION RESEARCH ENGINEER Work Phone: [employer] 09-12-2022 09:55-0500 Diastolic blood pressure 59 mm[Hg] Inocente Deras APRN - LOSS PREVENTION RESEARCH ENGINEER Work Phone: [facility] 09-12-2022 09:55-0500 Heart rate 74 /min Inocente Deras APRN - LOSS PREVENTION RESEARCH ENGINEER Work Phone: [facility] 09-12-2022 09:55-0500 Systolic blood pressure 129 mm[Hg] Inocente Deras APRN - LOSS PREVENTION RESEARCH ENGINEER Work Phone: [employer] 08-26-2022 05:09-0500 Body temperature 97.59 [degF] Sagar Hendrickson MD Work Phone: [employer] 08-26-2022 05:09-0500 Diastolic blood pressure 68 mm[Hg] Sagar Hendrickson MD Work Phone: [facility] 08-26-2022 05:09-0500 Heart rate 77 /min Sagar Hendrickson MD Work Phone: [facility] [employer] 08-26-2022 05:09-0500 Respiratory rate 18 /min Sagar Hendrickson MD Work Phone: [facility] [employer] 08-26-2022 05:09-0500 SaO2% (BldA) [Mass fraction] 96 % Sagar Hendrickson MD Work Phone: [facility] [employer] 08-26-2022 05:09-0500 Systolic blood pressure 125 mm[Hg] Sagar Hendrickson MD Work Phone: [facility] [employer] 08-25-2022 06:00-0500 Body mass index (BMI) [Ratio] 25.25 kg/m2 Sagar Hendrickson MD Work Phone: [facility] [employer] 08-25-2022 06:00-0500 Body weight 54.8 kg Sagar Hendrickson MD Work Phone: [facility] [employer] 08-23-2022 05:51-0500 Body height 147.3 cm Sagar Hendrickson MD Work Phone: [facility] aaTag 08-20-2022 15:06-0500 Body mass index (BMI) [Ratio] 25.92 kg/m2 Inocente Quijano Work Phone: [facility] Work Phone: 08-20-2022 15:06-0500 Body surface area Derived from formula 1.49 m2 Inocente Quijano Work Phone: [facility] Work Phone: 08-20-2022 15:06-0500 Body temperature 98.3 [degF] Inocente Quijano Work Phone: [facility] Work Phone: 08-20-2022 15:06-0500 Body weight 56.25 kg Inocente Ayalaoff Work Phone: [facility] Work Phone: 08-20-2022 15:06-0500 Diastolic blood pressure 64 mm[Hg] Inocente Ayalaoff Work Phone: [facility] Work Phone: 08-20-2022 15:06-0500 Heart rate 68 /min Inocente Ayalaoff Work Phone: [facility] Work Phone: 08-20-2022 15:06-0500 Respiratory rate 16 /min Inocente Ayalaoff Work Phone: [facility] Work Phone: 08-20-2022 15:06-0500 Systolic blood pressure 130 mm[Hg] Inocente Ayalaoff Work Phone: [facility] Work Phone: 08-20-2022 15:06-0500 0 1 Inocente Ayalaoff Work Phone: [facility] Work Phone: Comment on above: [employer] 03-27-2022 10:57-0400 Body height 147.32 cm Inocente Ayalaoff Work Phone: ZN-Fnxvnaaqfu-Czwyd r [facility] Work Phone: 03-27-2022 10:57-0400 Body mass index (BMI) [Ratio] 25.97 kg/m2 Inocente Ayalaoff Work Phone: WX-Fbohcvsaqd-Kapfj r [facility] Work Phone: 03-27-2022 10:57-0400 Body surface area Derived from formula 1.49 m2 Inocente Ayalaoff Work Phone: VF-Rfjnbipzot-Qemae r [facility] Work Phone: 03-27-2022 10:57-0400 Body temperature 97.3 [degF] Inocente Ayalaoff Work Phone: IF-Zuodmlzgxj-Okesz r [facility] Work Phone: 03-27-2022 10:57-0400 Body weight 56.36 kg Inocente Ayalaoff Work Phone: CJ-Xsobehhxhi-Vkjdr r [facility] Work Phone: 03-27-2022 10:57-0400 Diastolic blood pressure 69 mm[Hg] Inocente Ayalaoff Work Phone: EY-Lnopghkhkm-Usgty r [facility] Work Phone: 03-27-2022 10:57-0400 Heart rate 73 /min Inocente Ayalaoff Work Phone: BS-Eriyfewtxm-Lksdb r [facility] Work Phone: 03-27-2022 10:57-0400 SaO2% (BldA) [Mass fraction] 98 % Inocente Ayalaoff Work Phone: CC-Ruoufqxxnl-Dmpcb r [facility] Work Phone: 03-27-2022 10:57-0400 Systolic blood pressure 128 mm[Hg] Inocente Ayalaoff Work Phone: AY-Eifntputaw-Dqaik r [facility] Work Phone: 10-16-2021 14:07-0500 Body mass index (BMI) [Ratio] 25.71 kg/m2 Inocente Ayalaoff Work Phone: [facility] Work Phone: 10-16-2021 14:07-0500 Body surface area Derived from formula 1.48 m2 Inocente Quijnao Work Phone: [facility] Work Phone: 10-16-2021 14:07-0500 Body temperature 95.4 [degF] Inocente Andradeumoff Work Phone: [facility] Work Phone: 10-16-2021 14:07-0500 Body weight 55.79 kg Inocente Andradeumoff Work Phone: [facility] Work Phone: 10-16-2021 14:07-0500 Diastolic blood pressure 60 mm[Hg] Inocente Andradeumoff Work Phone: [facility] Work Phone: 10-16-2021 14:07-0500 Heart rate 72 /min Inocente Andradeumoff Work Phone: [facility] Work Phone: 10-16-2021 14:07-0500 Respiratory rate 14 /min Inocente Ayalaoff Work Phone: [facility] Work Phone: 10-16-2021 14:07-0500 Systolic blood pressure 120 mm[Hg] Inocente Andradeumoff Work Phone: [facility] Work Phone: 06-12-2017 15:35-0400 BMI (Body Mass Index) 22.63 kg/m2 [facility] Work Phone: 06-12-2017 15:35-0400 BP Diastolic 78 mm[Hg] [facility] Work Phone: 06-12-2017 15:35-0400 BP Systolic 122 mm[Hg] [facility] Work Phone: 06-12-2017 15:35-0400 Height 147.32 cm [facility] Work Phone: 06-12-2017 15:35-0400 Pulse (Heart Rate) 72 /min Madhuri White [facility] Work Phone: 06-12-2017 15:35-0400 Weight 49.12 kg Madhuri White [facility] Work Phone: 04-17-2017 11:46-0400 BMI (Body Mass Index) 21.94 kg/m2 Haraurora Bonilla [facility] Work Phone: 04-17-2017 11:46-0400 BP Diastolic 64 mm[Hg] Harumi DeFinalexandra [facility] Work Phone: 04-17-2017 11:46-0400 BP Systolic 112 mm[Hg] Harumi DeFinis [facility] Work Phone: 04-17-2017 11:46-0400 Height 147.32 cm Haraurora DeFinalexandra [facility] Work Phone: 04-17-2017 11:46-0400 Pulse (Heart Rate) 80 /min Haraurora Bonilla [facility] Work Phone: 04-17-2017 11:46-0400 Respiratory Rate 18 /min [facility] Work Phone: 04-17-2017 11:46-0400 Weight 47.63 kg Jefferson Bonilla [facility] Work Phone: Encounters Encounter Date Encounter Type Care Provider Facility Start: 02-03-2025 ambulatory Libby Miedel Facility: [facility] Start: 02-02-2025 ambulatory Libby Miedel Facility: [facility] Start: 01-25-2025 End: 01-25-2025 ambulatory Libby Miedel Facility:[facility] Start: 01-19-2025 End: 01-19-2025 ambulatory Brooke Camacho NP Facility:[facility] Start: 10-01-2024 End: 10-01-2024 ambulatory [place] Miedel Facility:[facility] Start: 09-02-2024 End: 09-02-2024 ambulatory [place] Mied Facility:[facility] Start: 08-24-2024 End: 08-24-2024 Office outpatient visit 25 minutes Prosper Hay MD PhD Work Phone: [facility] Comment on above: Bipolar disorder, in full remission, most recent episode mixed (Multi) Start: 08-24-2024 End: 08-24-2024 ambulatory [facility] Start: 07-23-2024 End: 07-23-2024 ambulatory [facility] Facility:[facility] Start: 04-06-2024 End: 04-06-2024 ambulatory [facility] Facility:[facility] Start: 04-02-2024 End: 04-02-2024 ambulatory [facility] Facility:[facility] Start: 03-01-2024 End: 03-01-2024 ambulatory [facility] Start: 02-17-2024 End: 02-17-2024 Office outpatient visit 40 minutes Prosper Hay MD PhD Work Phone: [facility] Comment on above: Bipolar disorder, in full remission, most recent episode mixed (Multi) Start: 02-17-2024 End: 02-17-2024 ambulatory [facility] Start: 2023 End: 2023 Office outpatient visit 15 minutes Prosper Hay MD PhD [facility] Comment on above: Bipolar disorder, in full remission, most recent episode mixed (CMS/HCC) Start: 10-28-2022 AUDIT Inocente Abarca Work Phone: [facility] Work Phone: Start: 09-12-2022 End: 09-13-2022 ambulatory INOCENTE IRVINGER [facility] Start: 09-12-2022 End: 09-12-2022 Postop follow up visit related to original px Inocenterome Deras RECREATION CLERK - LOSS PREVENTION RESEARCH ENGINEER Work Phone: [facility] Comment on above: Pleural effusion (Pr imary Dx) Start: 09-09-2022 Telephone encounter Sagar peck MD Work Phone: [facility] Comment on above: Post-op Problem Start: 09-03-2022 Telephone encounter Sagar peck MD Work Phone: [facility] Comment on above: Other Start: 09-01-2022 Telephone encounter Hussein CabanJensen Lima RECREATION CLERK - LOSS PREVENTION RESEARCH ENGINEER Work Phone: [facility] Comment on above: Other (Page Out) Start: 08-26-2022 End: 08-27-2022 Evaluation and management of inpatient [facility] Start: 08-25-2022 End: 08-26-2022 Evaluation and management of inpatient [facility] Comment on above: Arrived Start: 08-25-2022 End: 08-25-2022 Evaluation and management of inpatient [facility] Comment on above: Arrived Start: 08-24-2022 End: 08-25-2022 Evaluation and management of inpatient [facility] Start: 08-24-2022 End: 08-24-2022 Evaluation and management of inpatient Ach Xr Portable 4 [facility] Comment on above: Arrived Start: 08-23-2022 End: 08-24-2022 Evaluation and management of inpatient [facility] Start: 08-23-2022 End: 08-23-2022 Evaluation and management of inpatient Ach Xr Portable 1 [facility] Comment on above: Arrived Start: 08-23-2022 End: 08-26-2022 Evaluation and management of inpatient [facility] Start: 08-23-2022 End: 08-26-2022 Evaluation and management of inpatient Sagar Hendrickson MD Work Phone: [facility] Comment on above: Pleural effusion (Pr imary Dx); Pleural effusion, not elsewhere classified; S/P thoracotomy Start: 08-20-2022 Office outpatient vi sit 15 minutes Inocente Quijano Work Phone: [facility] Work Phone: Start: 08-15-2022 End: 08-15-2022 ambulatory [facility] Comment on above: Pleural effusion (Pr imary Dx) Start: 08-15-2022 Telephone encounter Sagar peck MD Work Phone: [facility] Comment on above: Surgery Scheduling Start: 08-15-2022 End: 08-15-2022 Office outpatient visit 15 minutes Sagar Hendrickson MD Work Phone: [facility] Comment on above: Pleural effusion (Pr imary Dx) Start: 07-25-2022 AUDIT Inocente Abarca ff Work Phone: [facility] Work Phone: Start: 07-25-2022 End: 07-25-2022 ambulatory [facility] Start: 07-22-2022 End: 07-23-2022 ambulatory [facility] Start: 07-12-2022 End: 07-13-2022 ambulatory [facility] Start: 07-08-2022 End: 07-09-2022 ambulatory [facility] Start: 04-26-2022 AUDIT Inocente Abarca ff Work Phone: IM-Gobbhlazls-Leaceg [facility] Work Phone: Start: 03-27-2022 Office outpatient vi sit 15 minutes Inocente Quijano Work Phone: NR-Hilwwmcfat-Qifepa [facility] Work Phone: Start: 02-25-2022 AUDIT Inocente Abarca ff Work Phone: EE-Zsbgezdvuu-Tttbyw [facility] Work Phone: Start: 02-22-2022 AUDIT Inocente Abarca ff Work Phone: GY-Reagkcjrhz-Ieifbu [facility] Work Phone: Start: 01-30-2022 Rx Renewal Inocente Abarca ff Work Phone: [facility] Work Phone: Start: 10-16-2021 Office outpatient vi sit 15 minutes Inocente Quijano [facility] Work Phone: Start: 07-31-2021 Chart Update Inocente Juliane atkins Work Phone: CR-Cycuyifqts-Rxpmir [facility] [place] Work Phone: Start: 07-23-2021 AUDIT Inocente Juliane Abarca ff Work Phone: XB-Tfhrqrblna-Vtbpfq [facility] [place] Work Phone: Start: 05-15-2021 Office outpatient vi sit 15 minutes Inocente Juliane Quijano Work Phone: [facility] Work Phone: Start: 07-13-2019 Patient encounter procedure Prosper Dines [facility] Work Phone: Start: 05-26-2019 Patient encounter procedure Prosper Dines [facility] Work Phone: Start: 12-31-2018 Patient encounter procedure Prosper Dines [facility] Work Phone: Start: End: Patient encounter status Inocente Cardozo Jamievanessa Work Phone: [facility] Work Phone: Procedures Date Procedure Procedure Detail Performing Clinician Start: 08-26-2022 Radiologic exam ches t single view Michelle Mckinney MD Work Phone: Start: 08-25-2022 Radiologic exam ches t single view Michelle Mckinney MD Work Phone: Start: 08-24-2022 Basic metabolic pane l calcium total Michelle Mckinney MD Work Phone: Start: 08-24-2022 Radiologic exam ches t single view Inocente Deras RECREATION CLERK - LOSS PREVENTION RESEARCH ENGINEER Work Phone: Start: 08-24-2022 Basic metabolic pane l calcium total Inocente Deras RECREATION CLERK - LOSS PREVENTION RESEARCH ENGINEER Work Phone: Start: 08-23-2022 End: 08-23-2022 Radiologic exam chest single view Inocente Deras RECREATION CLERK - LOSS PREVENTION RESEARCH ENGINEER Work Phone: Start: 08-23-2022 Basic metabolic pane l calcium total Inocente Deras APRN - LOSS PREVENTION RESEARCH ENGINEER Work Phone: Start: 08-23-2022 Level iv surg [...] 07-25-2020 Blood count complete auto&auto difrntl wbc [facility] Start: 07-25-2020 Comprehensive metabo lic 2000 panel [facility] Start: 07-25-2020 Valproate [Mass/volu me] in Serum or Plasma [facility] Start: 04-17-2017 End: 04-17-2017 Ecg routine ecg [...] 04-17-2017 End: 04-17-2017 MMM Atif Avalos MD Dilation and curettage Felipe juarez Dines Hammer toe operation Prosper Dines Removal of nail plate Alphonse p Dines Plan of Treatment Date Care Activity Detail Author Start: 2026 RSV High Risk: (Elde rly (60+) or Population) (1 - 1-dose 75+ series) RSV High Risk: (Elderly (60+) or Population) (1 - 1-dose 75+ series) [facility] Start: 08-24-2024 End: 10-22-2024 CBC W Auto Differential panel - Blood CBC and Auto Differential Lab Routine Bipolar disorder, in full remission, most recent episode mixed (Multi) Expected: 08/24/2024 (Approximate), Expires: 10/22/2024 [facility] Work Phone: Comment on above: Expected: 08/24/2024 (Approximate), Expires: 10/22/2024 Start: 08-24-2024 End: 10-22-2024 Comprehensive metabolic 2000 panel - Serum or Plasma Comprehensive metabolic panel Lab Routine Bipolar disorder, in full remission, most recent episode mixed (Multi) Expected: 08/24/2024 (Approximate), Expires: 10/22/2024 [facility] Work Phone: Comment on above: Expected: 08/24/2024 (Approximate), Expires: 10/22/2024 Start: 08-24-2024 End: 10-22-2024 Valproate [Mass/volume] in Serum or Plasma Valproic Acid Lab Routine Bipolar disorder, in full remission, most recent episode mixed (Multi) Expected: 08/24/2024 (Approximate), Expires: 10/22/2024 [facility] [[email or web address] Service Area Work Phone: Comment on above: Expected: 08/24/2024 (Approximate), Expires: 10/22/2024 Start: 04-11-2024 COVID-19 Vaccine ( season) COVID-19 Vaccine ( season) [facility] Start: 04-11-2024 Influenza vaccination Influenza Vacc ine (#1) [facility] Start: 02-17-2024 End: 04-19-2024 CBC W Auto Differential panel - Blood CBC and Auto Differential Lab Routine Bipolar disorder, in full remission, most recent episode mixed (Multi) Expected: 02/17/2024 (Approximate), Expires: 04/19/2024 [facility] Work Phone: Comment on above: Expected: 02/17/2024 (Approximate), Expires: 04/19/2024 Start: 02-17-2024 End: 04-19-2024 Comprehensive metabolic 2000 panel - Serum or Plasma Comprehensive metabolic panel Lab Routine Bipolar disorder, in full remission, most recent episode mixed (Multi) Expected: 02/17/2024 (Approximate), Expires: 04/19/2024 [facility] Work Phone: Comment on above: Expected: 02/17/2024 (Approximate), Expires: 04/19/2024 Start: 02-17-2024 End: 04-19-2024 Valproate [Mass/volume] in Serum or Plasma Valproic Acid Lab Routine Bipolar disorder, in full remission, most recent episode mixed (Multi) Expected: 02/17/2024 (Approximate), Expires: 04/19/2024 [facility] Work Phone: Comment on above: Expected: 02/17/2024 (Approximate), Expires: 04/19/2024 Start: 02-17-2024 End: 02-17-2024 Patient encounter procedure 02/17/2024 1:00 PM EDT Office Visit [address] [address] [place] PhD [id number] [address] [place] [address] [facility] Start: 2023 End: 10-21-2023 CBC W Auto Differential panel - Blood CBC and Auto Differential Lab Routine Bipolar disorder, in full remission, most recent episode mixed (CMS/HCC) Expected: 2023 (Approximate), Expires: 10/21/2023 [facility] Work Phone: Comment on above: Expected: 2023 (Approximate), Expires: 10/21/2023 Start: 2023 End: 10-21-2023 Comprehensive metabolic 2000 panel - Serum or Plasma Comprehensive metabolic panel Lab Routine Bipolar disorder, in full remission, most recent episode mixed (CMS/HCC) Expected: 2023 (Approximate), Expires: 10/21/2023 [facility] Work Phone: Comment on above: Expected: 2023 (Approximate), Expires: 10/21/2023 Start: 2023 End: 10-21-2023 Valproate [Mass/volume] in Serum or Plasma Valproic Acid Lab Routine Bipolar disorder, in full remission, most recent episode mixed (CMS/HCC) Expected: 2023 (Approximate), Expires: 10/21/2023 [facility] [[email or web address] Service Area Work Phone: Comment on above: Expected: 2023 (Approximate), Expires: 10/21/2023 Start: 04-11-2023 COVID-19 Vaccine ( season) COVID-19 Vaccine ( season) [facility] Start: 04-11-2023 Influenza vaccination Influenza Vacc ine (#1) [facility] Start: 02-18-2023 FUV, Provider: Prosper Hay, Status: Pen, Time: 1:30 PM FUV, Provider: Prosper Hay, Status: Pen, Time: 1:30 PM -[facility] Work Phone: Start: 09-12-2022 End: 09-12-2022 Patient encounter procedure 09/12/2022 Office Visit Cardiothoracic Surgery Inocente Deras, RECREATION CLERK - JULIA [address] [facility] [place] [address] [facility] Start: 08-23-2022 End: 10-13-2022 Prepare RBC: 1 Units Prepare RBC: 1 Units Blood Bank Routine Pleural effusion Expected: 08/23/2022, Expires: 10/13/2022 [facility] Comment on above: Expected: 08/23/2022 , Expires: 10/13/2022 Start: 08-23-2022 End: 08-23-2022 Admission to same day surgery center 08/23/2022 Surgery Procedural Sagar Hendrickson MD [address] [facility] [address] [place] [id number] RIGHT VATS, PLEURODESIS, POSSIBLE PULMONARY DECORTICATION [41759 (CPT )] [facility] Comment on above: RIGHT VATS, PLEURODE SIS, POSSIBLE PULMONARY DECORTICATION [14671 (CPT )] Start: 08-23-2022 End: 08-23-2022 Decortication pulmonary total separate procedure DECORTICATION LUNG Pleural effusion, not elsewhere classified 08/23/2022 7:00 AM EST [facility] Start: 08-23-2022 Subsequent hospital visit by physician 08/23/2022 Hospital Encounter Procedural Sagar Hendrickson MD [address] [place] [id number] [facility] Start: 08-23-2022 End: 08-23-2022 Thoracoscopy w/pleurodesis THORACOSCOPY DIAGNOSTIC WITH PLEURODESIS Pleural effusion, not elsewhere classified 08/23/2022 7:00 AM EST [facility] Start: 08-20-2022 FUV, Provider: Prosper Hay, Status: Pen, Time: 3:00 PM FUV, Provider: Prosper Hay, Status: Pen, Time: 3:00 PM [facility] Work Phone: Start: 08-15-2022 End: 10-13-2022 Blood type and Crossmatch panel - Blood Type and Screen Lab Routine Pleural effusion Expected: 08/15/2022, Expires: 10/13/2022 [facility] Comment on above: Expected: 08/15/2022 , Expires: 10/13/2022 Start: 08-15-2022 End: 10-13-2022 CBC W Auto Differential panel - Blood CBC auto differential Lab Routine Pleural effusion Expected: 08/15/2022, Expires: 10/13/2022 [facility] Comment on above: Expected: 08/15/2022 , Expires: 10/13/2022 Start: 08-15-2022 End: 10-13-2022 Comprehensive Metabolic Panel with Mg Reflex Comprehensive Metabolic Panel with Mg Reflex Lab Routine Pleural effusion Expected: 08/15/2022, Expires: 10/13/2022 [facility] Work Phone: Comment on above: Expected: 08/15/2022 , Expires: 10/13/2022 Start: 08-15-2022 End: 10-13-2022 XR Chest 2 Views XR chest 2 views Imaging Routine Pleural effusion Expected: 08/15/2022, Expires: 10/13/2022 [facility] Comment on above: Expected: 08/15/2022 , Expires: 10/13/2022 Start: 05-21-2022 FUV, Provider: Prosper Hay, Status: Pen, Time: 2:00 PM FUV, Provider: Prosper Hay, Status: Pen, Time: 2:00 PM -[facility] Work Phone: Start: 04-11-2022 Influenza vaccination Influenza Vacc ine (#1) [facility] Start: 03-27-2022 FUV, Provider: Prosper Hay, Status: Pen, Time: 11:00 AM FUV, Provider: Prosper Hay, Status: Pen, Time: 11:00 AM LM-Jxezxqxgil-Ceoqze [facility] Work Phone: Start: 10-16-2021 VIRFUVHOMShaniqua, Provider : Prosper Hay, Status: Pen, Time: 2:00 PM VIRFUVRUDDY, Provider: Prosper Hay, Status: Pen, Time: 2:[address] [facility] Work Phone: Start: 02-21-2021 Medicare Annual Well ness Visit Medicare Annual Wellness Visit (AWV) [facility] Start: 06-17-2018 End: 06-17-2018 Appointment Appointment [facility] Work Phone: Start: 06-12-2017 End: 06-12-2017 Follow Up Appt 1 year Follow Up Appt 1 year [facility] Work Phone: Start: 06-12-2017 End: 06-12-2017 PFM PFM [facility] Work Phone: Start: 05-30-2017 End: 05-30-2017 Appointment Appointment [facility] Work Phone: Start: 04-17-2017 End: 04-17-2017 Chest x-ray X-Ray, Chest, PA & Lateral [facility] Work Phone: Start: 04-17-2017 End: 04-17-2017 Echocardiography Echocardiogram (complete) [facility] Work Phone: Start: 04-17-2017 End: 04-17-2017 Follow Up Appt 6 weeks Follow Up Appt 6 weeks [facility] Work Phone: Start: 04-17-2017 End: 04-17-2017 MMM MMM [facility] Work Phone: Start: 04-17-2017 End: 04-17-2017 Appointment Appointment [facility] Work Phone: Start: 04-17-2017 End: 04-17-2017 Chest x-ray X-Ray, Chest, PA & Lateral [facility] Work Phone: Start: 04-17-2017 End: 04-17-2017 Echocardiography Echocardiogram (complete) [facility] Work Phone: Start: 04-17-2017 End: 04-17-2017 Follow Up Appt 6 weeks Follow Up Appt 6 weeks [facility] Work Phone: Start: 04-17-2017 End: 04-17-2017 MMM MMM [facility] Work Phone: Start: 2016 Pneumococcal Vaccine : 65+ Years (1 - PCV) Pneumococcal Vaccine: 65+ Years (1 - PCV) [facility] Start: 2011 RSV patient s and/or patients aged 60+ years (1 - 1-dose 60+ series) RSV patients and/or patients aged 60+ years (1 - 1-dose 60+ series) [facility] Start: 2001 Zoster Vaccines (1 of 2) Zoste r Vaccines (1 of 2) [facility] Start: 1991 Screening for malign ant neoplasm of breast Mammogram [facility] Start: 1973 DTaP/Tdap/Td Vaccine s (1 - Tdap) DTaP/Tdap/Td Vaccines (1 - Tdap) [facility] Start: 1970 DTaP/Tdap/Td Vaccine s (1 - Tdap) DTaP/Tdap/Td Vaccines (1 - Tdap) [facility] Start: 1969 Diabetes mellitus screening Diabetes Screening [facility] Start: 1969 [facility]atitis [facility] Start: 02-20-1952 COVID-19 Vaccine (#1) COVID-19 Vacci ne (#1) [facility] Start: 1951 Hepatitis B Vaccines (1 of 3 - 3-dose series) Hepatitis B Vaccines (1 of 3 - 3-dose series) [facility] Start: 1951 Lipid panel Lipid Panel [facility] Start: 1951 Medicare Annual Well ness Visit Medicare Annual Wellness Visit (AWV) [facility] Start: 1951 Screening for malign ant neoplasm of colon [facility] Start: 1951 Screening for osteoporosis Bone Density Scan [facility] Start: 1951 Thyroid stimulating hormone measurement TSH Level [facility] Payers Date Payer Category Payer Medicare (Managed Care) [facility] [id number] 2024 Self-pay 2023 Medicare [id number] 2022 Medicare [id number] 2016 Unknown 2016 Unknown [id number] 2016 Medicare [id number] 2016 Medicare [id number] 1951 Unknown [id number] 1951 Unknown [id number]. 2.1245 1951 Unknown [id number]. [id number] Unknown [id number]. [id number] Unknown [id number]. [id number] Unknown [id number] [id number]. [id number] Unknown [id number]. [id number] Unknown [id number]. [id number] Unknown [id number] [id number]. 2.462 Unknown [id number]. 2.462 Unknown [id number]. [id number] Unknown [id number] [id number] Social History Date Type Detail Facility Start: 2023 End: 08-24-2024 Non-smoker Non-smoker [facility] Work Phone: Start: 2023 End: 02-17-2024 Tobacco smoking status NHIS Ex-smoker [facility] History of tobacco use Current smoker [facility] History [facility] tobacco [facility] [facility] Work Phone: Start: 2023 End: 02-17-2024 Alcohol intake Ex-drinker (finding) [facility] Work Phone: Start: 2023 End: 08-24-2024 [employer] [facility] Work Phone: Has the [employer], or [employer] threatened to shut off services in your home in past 12Mo No [facility] Work Phone: Do you belong to any clubs or organizations such as mormonism groups, unions, fraternal or athletic groups, or school groups? Yes [facility] Work Phone: Are you now , , , , never or living with a partner? [facility] Work Phone: How often to you hav e a drink containing alcohol? Never [facility] Work Phone: How many standard drinks containing alcohol do you have on a typical day? Patient does not drink [facility] Work Phone: Do you feel stress - tense, restless, nervous, or anxious, or unable to sleep at night because your mind is troubled all the time - these days [OSQ] To some extent [facility] Work Phone: (I/We) worried christofer er (my/our) food would run out before (I/we) got money to buy more. Never true [facility] Work Phone: Start: 1950 Sex Assigned At Not on file [facility] Start: 02-17-2024 Tobacco use and exposure Smokeless tobacco non-user [facility] Work Phone: Start: 08-05-2022 End: 08-24-2024 Exposure to SARS-CoV-2 (event) Not sure [facility] Start: 07-25-2022 End: 09-12-2022 Alcohol intake Lifetime non-drinker (finding) [facility] NEGATED: Highlighted row - - [facility] Work Phone: Functional Status Date Assessment Result Facility NEGATED: Highlighted row Functional performance Functional status health issues are not documented Disease [facility] Work Phone: Mental Status Date Assessment Result Facility NEGATED: Highlighted row Cognitive function [Interpretation] Cognitive status health issues are not documented Disease [facility] Work Phone: Clinical Notes 06-27-2022 to 08-24-2024 Prosper Hay MD PhD - 08/24/2024 2:00 PM Joel Hay MD PhD - 02/17/2024 1:00 PM Bart Hay MD PhD - 2023 3:30 PM Mary Deras APRN - [facility] - 09/12/2022 10:00 AM EST Note Date [...] care is Dr. Libby Luque, , fax [phone]. Please follow up in March of 2025 [...] encounter: 30 minutes. documented in this encounter [facility] Work Phone: 02-17-2024 History of Present illness [...] denied any symptoms. documented in this encounter [facility] Work Phone: 2023 History of Present illness [...] January of 2024. documented in this encounter [facility] Work Phone: 09-12-2022 History of Present illness Narrative Images from the original note were not included. [facility]: CT SURGEONS [address] [facility] [address] Dept: [phone] Dept Loc: [phone] Visit type: Established patient Reason for Visit: [...] DERECK Villanueva CNP documented in this encounter [facility] 09-12-2022 Evaluation + Plan note Associated Problem(s): [...] -Path discussed briefly; final path per surgeon [facility] 09-12-2022 Miscellaneous Notes Associated Problem(s): Pleural effusion [...] path per surgeon documented in this encounter [facility] 09-09-2022 Telephone encounter Note Case reviewed. Refill sent. Please notify patient. DERECK Trotter CNP 09/09/22 [facility] 09-09-2022 Miscellaneous Notes Case reviewed. Refill sent. Please notify patient. DERECK Trotter CNP 09/09/22 Pt states she is still having post op pain. Educated her on post op pain management listed below. She states she takes 1000mg Tylenol TID and only uses the Oxycodone for increased pain at night. Pt is requesting a refill of Oxycodone sent to [email or web address] in [place]. Please advise. Right minithoracotomy pulmonary decortication visceral [...] call her back. She goes to the [facility] in [place]. Thank you. documented in this encounter [facility] 09-09-2022 Telephone encounter Note Pt states she is still having post op pain. Educated her on post op pain management listed below. She states she takes 1000mg Tylenol TID and only uses the Oxycodone for increased pain at night. Pt is requesting a refill of Oxycodone sent to [facility] in [place]. Please advise. Right minithoracotomy pulmonary decortication visceral [...] for at least 20 minutes before reapplying. [facility] 09-09-2022 Telephone encounter Note Patient is calling in and waking for a refill on the Oxycodone medication. Please call her back. She goes to the [facility] in [place]. Thank you. [facility] 09-03-2022 Telephone encounter Note Spoke with patient. [...] does not improve. DERECK Trotter CNP 09/03/22 [facility] Work Phone: 09-03-2022 Miscellaneous Notes Spoke with [...] do Please advise documented in this encounter [facility] 09-03-2022 Telephone encounter Note Patient had a VATS on 08/23/22 Patient calling in and states she has some leg swelling in both and asking what she needs to do Please advise [facility] 09-01-2022 Telephone encounter Note Spoke with patient [...] questions or concerns. DERECK Berry CNP 09/01/22 [facility] 09-01-2022 Miscellaneous Notes Spoke with patient and [...] caller requesting page:Ricarda Phone Number of caller: [phone] Facility requesting page: Patient Reason for Page: Severe pain, SOB. Surgery 08/23 for Right thoracotomy, decortication, and pleurodesis. Provider paged: [facility] Name of paged provider: [facility] Page Placed to #: On-Call Finder Time Page was sent or provider contacted: 10:10 AM Page Content: Pt Dylon Oliva 1950 states she had SX / for right thoracotomy, decortication, and pleurodesis. Pt c/o severe pain in Right Lung area and SOB. Pt can be reached at [phone] Please advise documented in this encounter [facility] 09-01-2022 Telephone encounter Note Name of caller requesting page:Ricarda Phone Number of caller: [phone] Facility requesting page: Patient Reason for Page: Severe pain, SOB. Surgery 08/23 for Right thoracotomy, decortication, and pleurodesis. Provider paged: Shorty White Name of paged provider: [facility] Cardiothoracic Surgery Page Placed to #: On-Call Finder Time Page was sent or provider contacted: 10:10 AM Page Content: Pt Dylon Oliva 1950 states she had SX 08/23 for right thoracotomy, decortication, and pleurodesis. Pt c/o severe pain in Right Lung area and SOB. Pt can be reached at [phone] Please advise [facility] 08-26-2022 Note Attestation signed by Sagar Hendrickson MD at 08/27/2022 9:37 AM I independently saw and evaluated the patient - including reviewing the labs, imaging studies, and available documentation. I agree with the findings and plan of care as documented by the resident/SYSTEMS ADMINISTRATION ANALYST/DIRECTOR OF PHYSIOTHERAPY SERVICES/PA, unless otherwise noted. Please do not hesitate to contact me/us if you have any questions or concerns. Sagar Hendrickson MD FACS Discharge Summary Ricarda Oliva : 1950 ADMIT DATE: 08/23/2022 DISCHARGE [...] Your Medications These medications were sent to [facility] - [place], [place] - [address] [place] [address] oxyCODONE 5 MG immediate release tablet DIET: Adult diet Regular ACTIVITY: No heavy lifting. COMPLEXITY OF FOLLOW UP: [x] Moderate Complexity: follow up within 7-14 calendar days (72382) [] Severe Complexity: follow up within 7 calendar days (62479) FOLLOW UP TESTING, PENDING RESULTS OR REFERRALS AT TRANSITIONAL CARE VISIT: [] Yes [x] No PENDING STUDIES: DISPOSITION: Home FACILITY/HOME CARE AGENCY NAME: Follow up with Inocente Irvinger, RECREATION CLERK - LOSS PREVENTION RESEARCH ENGINEER [address] [address] Follow up on 09/12/2022 Time: 10:00am, Post-op [...] Dorman MD 08/26/2022, 5:32 PM [facility] 08-26-2022 Nurse Note Pt. Alert and oriented. PIV's have been removed. court monitor has been removed. AVS printed, reviewed, and given to patient. All questions and concerns have been addressed. Pt. Left unit ambulatory. Medications will be picked up from pharmacy. All belongings were given to patient. [facility] 08-26-2022 Nurse Note Pt. Alert and oriented. PIV's have been removed. court monitor has been removed. AVS printed, reviewed, and given to patient. All questions and concerns have been addressed. Pt. Left unit ambulatory. Medications will be picked up from pharmacy. All belongings were given to patient. documented in this encounter [facility] 08-26-2022 Note Formatting of this n ote might be different from the original. Pt declining home care services. [facility] 08-26-2022 Note Formatting of this n ote might be different from the original. Pt declining home care services. [facility] 08-26-2022 Miscellaneous Notes Pt declining home care services. Care Managment Initial Assessment Date: 08/26/2022 Patient Name: Ricarda Oliva : 1950 Patient Information Source of Information: Patient Cognition/Language: WFL - Within Functional Limits Permission given to speak with patient franchise sales representative/caregiver as indicated: Confirmation of Payer with [...] Prescription Coverage: Yes Pharmacy Used: [facility], [place] Medication Management: Independent Transportation/Shopping: Independent Transportation [...] today if medically stable. Madhuri Salcedo RN Insurance Sales Assistant following case for Discharge Needs. Awaiting x-ray [...] the lower chest cavity and a 24 Yemeni Carrie drain was placed in the chest [...] end of report documented in this encounter [facility] 08-26-2022 History of Present illness Narrative Right [...] plan of care as documented by the resident/SYSTEMS ADMINISTRATION ANALYST/DIRECTOR OF PHYSIOTHERAPY SERVICES/PA, unless otherwise noted. Please do not hesitate [...] be monitored and followed by the diet security systems technician. CT SURGERY Progress Note PATIENT NAME: [...] telemetry Michelle Mckinney MD General Surgery, PGY-2 #2789 PAGING: From - (-s): Page me at [phone] From 6p-6a (-s): - Surg ICU Patients: Page [phone] - Surg Floor Patients: Page [phone] Physical Therapy Facility/Department: [facility] Physical Therapy Initial Evaluation NAME: Ricarda Oliva [...] Plan of Care supervision is transferred to [facility] Rehab Department Physical Therapist. CTS SURGERY Progress Note PATIENT NAME: Ricarda Oliav TODAY'S DATE: 08/24/2022 SUBJECTIVE: NAEON. Tolerated OR [...] tomorrow Michelle Mckinney MD General Surgery, PGY-2 #5789 PAGING: From 6a-6p (6a-10a weekends): Page me at [phone] From 6p-6a (-6a weekends): - Surg ICU Patients: Page [phone] - Surg Floor Patients: Page [phone] documented in this encounter [facility] 08-26-2022 Note Formatting of this n ote might be different from the original. Care Managment Initial Assessment Date: 08/26/2022 Patient Name: Ricarda Oliva : 1950 Patient Information Source of Information: Patient Cognition/Language: WFL - Within Functional Limits Permission given to speak with patient franchise sales representative/caregiver as indicated: Confirmation of Payer with patient/family: Yes Payer Name: Medicare Haskins: No Confirmation of Primary Care Physician: Confirmed [...] Prescription Coverage: Yes Pharmacy Used: [facility], [place] Medication Management: Independent Transportation/Shopping: Independent Transportation Mode: [...] today if medically stable. Madhuri Salcedo RN [facility] 08-26-2022 Note Formatting of this n ote might be different from the original. Care Managment Initial Assessment Date: 08/26/2022 Patient Name: Ricarda Oliva : 1950 Patient Information Source of Information: Patient Cognition/Language: WFL - Within Functional Limits Permission given to speak with patient franchise sales representative/caregiver as indicated: Confirmation of Payer with patient/family: Yes Payer Name: Medicare Haskins: No Confirmation of Primary Care Physician: Confirmed [...] Prescription Coverage: Yes Pharmacy Used: [facility], [place] Medication Management: Independent Transportation/Shopping: Independent Transportation [...] today if medically stable. Madhuri Salcedo RN [facility] 08-25-[address] SURGERY Progress Note PATIENT [...] telemetry Michelle Mckinney MD General Surgery, PGY-2 #2159 PAGING: From 6a-6 (-s): Page me at [phone] From 6p-6a (-s): - Surg ICU Patients: Page [phone] - Surg Floor Patients: Page [phone] [facility] 08-25-2022 Note 1. Right-sided chest tube without pneumothorax. 2. Progression of subcutaneous air in the right chest and neck. Report Dictated on Electronically Signed By: Sunday Ralph Electronically Signed Date/Time: 08/25/2022 12:57 AM [facility] 08-24-2022 Note CTS SURGERY Progress [...] INTAKE/OUTPUT: I/O last 3 completed shifts: In: 1999 (35.9 mL/kg) [P.O.:760; I.V.:1240 (22.3 mL/kg)] Out: [...] tomorrow Michelle Mckinney MD General Surgery, PGY-2 #7645 PAGING: From -6p (- weekends): Page me at [phone] From 6p- (-s): - Surg ICU Patients: Page [phone] - Surg Floor Patients: Page [phone] [facility] 08-23-2022 Hospital Discharge instructions Sagar Dorman MD - 08/23/2022 4:03 PM EST Images from the original note were not included. [facility]: Cardiothoracic Surgery [address] Martir GUERRERO (T): #[phone] (F): #[phone] After lung surgery, it is common to [...] or dog food bags, or a vacuum tank car cleaner. If your incision is in the [...] you start to have pain. Shoulder Stretch bone cooking operator a doorway and place one arm against [...] you are prescribed oxycodone/acetaminophen (Percocet) or hydrocodone/acetaminophen (Yoder/Vicodin) be cautious when taking additional tylenol. No [...] pain. -Abdominal distention. documented in this encounter [facility] 08-23-2022 Note Formatting of this n ote might be different from the original. Insurance Sales Assistant following case for Discharge Needs. [facility] 08-23-2022 Note Formatting of this n ote might be different from the original. Insurance Sales Assistant following case for Discharge Needs. [facility] 08-23-2022 Note Patient: Ricarda daily Procedure Summary Date: 08/23/22 Room / Location: [facility] Operating Room Anesthesia Start: 705 Anesthesia Stop: [...] Temp 97 08/23/22 0921 Pulse 53 08/23/22 0921 Resp 20 08/23/22920 SpO2 100 % 08/23/22920 [...] questions and acknowledgement of understanding. [facility] 08-23-2022 Note Patient: Ricarda daily Procedure Summary Date: 08/23/22 Room / Location: [facility] Operating Room Anesthesia Start: 705 Anesthesia Stop: [...] 127/61 08/23/2221 Temp 97 08/23/22920 Pulse 53 08/23/22919 Resp 22 08/23/22919 SpO2 100 % 08/23/22919 Vitals shown include unvalidated device data. Anesthesia [...] PACU criteria has been met. [facility] 08-23-2022 Note Formatting of this n ote might be different from the original. Awaiting x-ray to preform ordered x-ray. [facility] 08-23-2022 Note Formatting of this n ote might be different from the original. Awaiting x-ray to preform ordered x-ray. [facility] 08-23-2022 Note Peripheral IV Date/Time: 08/23/2022 7:10 AM Inserted by: Michelle Cunningham APRN - LICENSED PHYSICAL THERAPIST Placement Needle size: 18 G Laterality: right Location: forearm Site prep: alcohol Technique: anatomical landmarks Attempts: 1 [facility] 08-23-2022 Note Formatting of this n ote might be different from the original. Report given to Ivania. [facility] 08-23-2022 Note Formatting of this n ote might be different from the original. Report given to Ivania. [facility] 08-23-2022 Note Peripheral Block Time Out: 08/23/2022 6:52 AM Start time: 08/23/2022 6:52 AM End time: 08/23/2022 6:55 AM Reason for block: at surgeon's request and post-op pain management Staffing Performed: LICENSED PHYSICAL THERAPIST Resident/LICENSED PHYSICAL THERAPIST: DERECK Forman CRNA Preanesthetic Checklist Completed: patient identified, IV checked, site marked, risks and benefits discussed, surgical consent and timeout performed Region: Truncal Primary: Serratus Anterior Peripheral Block Patient position: supine Prep: ChloraPrep Patient monitoring: heart rate, air sampling and monitoring, continuous pulse ox and continuous capnometry O2: [...] changes noted and No symptoms of toxicityMedications hxqIZVCBkyecy-jnaqwrsniwl-mgruldr rine (TAP) syringe - Transabdominal Plane 10 mL - 08/23/2022 6:52:00 AM bupivacaine liposome (Exparel) 1.3 % injection - Injection 133 mg - 08/23/2022 6:52:00 AM [facility] 08-23-2022 Note Peripheral Block Time Out: 08/23/2022 6:35 AM Patient location during procedure: pre-op Start time: 08/23/2022 6:35 AM End time: 08/23/2022 6:40 AM Reason for block: procedure for pain and Acute pain service Staffing Performed: LICENSED PHYSICAL THERAPIST Resident/LICENSED PHYSICAL THERAPIST: Reed B. Jase, RECREATION CLERK - LICENSED PHYSICAL THERAPIST Preanesthetic Checklist Completed: patient identified, IV checked, site marked, risks and benefits discussed, surgical consent, monitors and equipment checked, pre-op evaluation and timeout performed Region: Truncal Primary: Erector Spinae Peripheral Block Patient position: sitting Prep: ChloraPrep Patient monitoring: heart rate, air sampling and monitoring and continuous pulse ox O2: Nasal cannula [...] - IntraVENous 1 mg - 08/23/2022 6:35:00 OCqciHQKRCsgsqf-htruucmxqyr-uxqqe phrine (TAP) syringe - Transabdominal Plane 20 mL - 08/23/2022 6:35:00 AM bupivacaine liposome (Exparel) 1.3 % injection - Injection 133 mg - 08/23/2022 6:35:00 AM [facility] 08-23-2022 Note Airway Date/Time: 08/23/2022 7:11 AM Urgency: scheduled Airway not difficult General Information and Staff Patient location during procedure: Procedural Resident/LICENSED PHYSICAL THERAPIST: DERECK Lew CRNA Performed: LICENSED PHYSICAL THERAPIST Indications and Patient Condition Indications for airway [...] of attempts at approach: 1 [facility] 08-23-2022 Note Formatting of this n ote might be different from the original. Nasal airway removed. [facility] 08-23-2022 Note Formatting of this n ote might be different from the original. Nasal airway removed. [facility] 08-23-2022 Note Formatting of this n ote might be different from the original. Nasal airway placed, left nare. Pt tolerated without difficulty. [facility] 08-23-2022 Note Formatting of this n ote might be different from the original. Nasal airway placed, left nare. Pt tolerated without difficulty. [facility] 08-23-2022 Note Formatting of this [...] the lower chest cavity and a 24 Yemeni Carrie drain was placed in the chest cavity through the separate incision site the ribs were reapproximated with #2 Vicryl and the soft tissues were closed with Vicryl in layers and the skin with Monocryl the patient was extubated having tolerated the procedure well no airleak was evident on the Pleur-evac patient was transferred to the recovery room stable end of report [facility] Phone: 08-23-2022 Note Formatting of this n [...] the lower chest cavity and a 24 Yemeni Carrie drain was placed in the chest cavity through the separate incision site the ribs were reapproximated with #2 Vicryl and the soft tissues were closed with Vicryl in layers and the skin with Monocryl the patient was extubated having tolerated the procedure well no airleak was evident on the Pleur-evac patient was transferred to the recovery room stable end of report [facility] Phone: 08-21-2022 Note Patient: Ricarda daily Procedure Information Date/Time: 08/23/22 0700 Procedures: RIGHT VATS, PLEURODESIS, POSSIBLE PULMONARY DECORTICATION (Right: Chest) DECORTICATION LUNG (Right: Chest) Location: [facility] Operating Room Surgeons: Sagar Hendrickson [...] this or any previous visit. [facility] 08-15-2022 Telephone encounter Note Surg proc orders placed. EDRECK Berry CNP 08/15/22 [facility] Work Phone: 08-15-2022 Miscellaneous Notes Surg proc orders placed. DERECK Berry CNP 08/15/22 Patient is scheduled for Right VATS pleurodesis possible pulmonary decortication on 08/23/22 at 7:[address] Hendrickson told patient they could do all pre-op testing morning of surgery since they live so far away Please place surg proc orders Thank you documented in this encounter [facility] 08-15-2022 Telephone encounter Note Patient is scheduled for Right VATS pleurodesis possible pulmonary decortication on 08/23/22 at 7:[address] Hendrickson told patient they could do all pre-op testing morning of surgery since they live so far away Please place surg proc orders Thank you [facility] 08-15-2022 History of Present illness Narrative Images from the original note were not included. [facility] [address] [facility] [address] [facility] [address] Dept: [phone] Dept Loc: [phone] Patient was seen today via Telehealth by [...] stated that they are currently in the [facility]. If the patient is a minor, [...] This note may have been dictated using [employer] Practice Edition 2.6 and/or [employer] Voice Recognition Feature. The document was proofread, however unrecognized voice recognition polysomnograph tech errors may be present. documented in this encounter [facility] 07-25-2022 Note Orders Placed This E ncounter [...] 1 Standing Expiration Date: 07/25/2023 [facility] 07-09-2022 Note Orders Placed This E ncounter Procedures US guided thoracentesis Standing Status: Future Standing Expiration Date: 07/09/2023 Order Specific Question: Is the patient expected to be admitted post-procedure? Answer: No XR chest 2 views Standing Status: Future Standing Expiration Date: 07/09/2023 [facility] 06-27-2022 Note Orders Placed This E ncounter Procedures XR chest 2 views Standing Status: Future Standing Expiration Date: 06/27/2023 [facility] Evaluation note Diagnosis Bipolar disorder, in full remission, most recent episode mixed (CMS/HCC) documented in this encounter [facility] Work Phone: Evaluation note* Diagnosis Bipolar disorder, in full remission, most recent episode mixed (Multi) documented in this encounter [facility] Work Phone: Evaluation note* Diagnosis Pleural effusion- Primary Unspecified pleural effusion Pleural effusion, not elsewhere classified documented in this encounter [facility]* Diagnosis Pleural effusion- Primary Unspecified pleural effusion Pleural effusion, not elsewhere classified documented in this encounter [facility] CEL-SCIaluation note* Diagnosis Pleural effusion- Primary Unspecified pleural effusion Pleural effusion Unspecified pleural effusion Pleural effusion, not elsewhere classified S/P thoracotomy Other postprocedural status documented in this encounter [facility] note* Diagnosis Pleural effusion- Primary Unspecified pleural effusion documented in this encounter [facility] CEL-SCIaluation note* Diagnosis Pleural effusion- Primary Unspecified pleural effusion documented in this encounter [facility] CEL-SCIaluation note* Diagnosis Bipolar disorder, in full remission, most recent episode mixed (Multi) documented in this encounter [facility] Work Phone: History of Present illness Narrative* Ms. RICARDA OLIVA denies any suicidal or homicidal ideation or plans. * The patient reports that she has substantial issues with marital issues and conflicts with her brother and sister. [facility] Work Phone: History of Present illness Narrative* Ms. RICARDA OLIVA denies any suicidal or homicidal ideation or plans. * The patient reports that she has substantial issues with marital issues and conflicts with her brother and sister. [facility] Work Phone: History of Present illness Narrative* Ms. RICARDA OLIVA denies any suicidal or homicidal ideation or plans. * The patient reports that she has substantial issues with marital issues and conflicts with her brother and sister. [address] Work Phone: History of Present illness Narrative* Ms. RICARDA OLIVA denies any suicidal or homicidal ideation or plans. * The patient reports that she has substantial issues with marital issues and conflicts with her brother and sister. [facility] Work Phone: Reason for referral (narrative)* Consultation (Routine) - Authorized Specialty Diagnoses / Procedures Referred By Sage t Referred To Contact Psychiatry Diagnoses Bipolar disorder, in full remission, most recent episode mixed (CMS/HCC) Procedures Follow Up In Psychiatry Prosper [place] PhD [id number] [address] Department of Psychiatry-Adult [place] [id number] Referral ID Status Reason Start Date Expiration Date V isits Requested Visits Authorized [id number] Authorized 2023 08/21/2024 1 1 [facility] Work Phone: Summary Purpose Family History No [...] Maternal Grandfather Status:Active FH: Parkinson's disease: Pat benignoal Cousin(V17.2, Z82.0) Status:Active Unknown Family Member Name [...] section and content) DATE CREATED AUTHOR 02/04/2018 [facility] DATE CREATED AUTHOR AUTHOR'S ORGANIZ ATION 03/03/2020 [facility] ([place]) DATE CREATED AUTHOR AUTHOR'S ORGANIZ ATION 11/17/2020 [facility] DATE CREATED AUTHOR AUTHOR'S ORGANIZ ATION 08/21/2022 [facility] DATE CREATED AUTHOR AUTHOR'S ORGANIZ ATION 12/22/2022 [facility] DATE CREATED AUTHOR AUTHOR'S ORGANIZ ATION 02/27/2023 [facility] DATE CREATED AUTHOR AUTHOR'S ORGANIZ ATION 08/27/2024 [facility] DATE CREATED AUTHOR AUTHOR'S ORGANIZ ATION 09/17/2024 [facility] DATE CREATED AUTHOR AUTHOR'S ORGANIZ ATION 02/02/2025 [facility] Care Teams (unrecognized sec tion and content) Client Director Relationship Specialty Start Date End Date Libby Luque MD PCP - General 02/18/23 Client Director Relationship Specialty Start Date End Date Libby Luque MD PCP - General 02/18/23 Client Director Relationship Specialty Start Date End Date Libby Luque MD [address] [facility] [place] [id number] PCP - General 02/28/22 Client Director Relationship Specialty Start Date End Date Libby Luque MD [address] [place] [address] PCP - General 02/28/22 Client Director Relationship Specialty Start Date End Date Libby Luque MD [address] [place] [address] PCP - General 02/28/22 Client Director Relationship Specialty Start Date End Date Libby Luque MD [address] [place] [address] PCP - General 02/28/22 Client Director Relationship Specialty Start Date End Date Libby Luque MD [address] [place] [address] PCP - General 02/28/22 Client Director Relationship Specialty Start Date End Date Libby Luque MD [address] [place] [address] PCP - General 02/28/22 Client Director Relationship Specialty Start Date End Date Libby Luque MD [address] [place] [address] PCP - General 02/28/22 Client Director Relationship Specialty Start Date End Date Libby Luque MD [address] [place] [address] PCP - General 02/28/22 Reason for Visit (unrecogniz ed section and content) Reason Comments Follow-up Reason Onset Date Comments Surgery Scheduling 08/15/2022 Specialty Diagnoses / Procedures Referred By Contsheree t Referred To Contact Diagnoses Pleural effusion, not elsewhere classified Pleural effusion, not elsewhere classified [J90] Procedures NJ THORACOSCOPY W/PLEURODESIS [place] DECORTICATION PULMONARY TOTAL SEPARATE PROCEDURE RIGHT VATS, PLEURODESIS, POSSIBLE PULMONARY DECORTICATION DECORTICATION LUNG Sagar Hendrickson MD [address] [place] [address] [address] [place] [address] Referral ID Status Reason Start Date Expiration Date Visits Re quested Visits Authorized [id number] Reason Onset Date Comments Other 09/01/2022 Page [...] RN) 0853 (Given - Provider: Meng Pastrana RN)1422 (Given - Provider: Latricia Ortiz RN)2054 (Given - Provider: Rakel Garcia LPN) 0828 (Given - Provider: Divine Patino RN) aspirin EC tablet 81 mg 81 mg, Oral, Daily, First dose on Fri08/23/22 at 1100, Do not crush, chew, or split. 0900 (Given - Provider: Angelica Rosales RN) 0853 (Given - Provider: Meng Pastrana RN) 0828 (Given - Provider: Divine Patino RN) divalproex [...] Rosales RN) 0853 (Given - Provider: Meng Pastrana, SAUL) 0828 (Given - Provider: Divine Patino RN) levothyroxine (Synthroid, Levoxyl) tablet 25 mcg 25 mcg, Oral, Daily before breakfast, First dose on 08/24/22 at 0700, Tube feeding (TF) interaction, obtain physician order to manage, recommend holding TF for 30 minutes before and after dose. 0700 (Given - Provider: Shamar Casas RN) 0637 (Given - Provider: Yoselin Maldonado RN) 0614 (Given - Provider: Sumanth Barbour RN) sodium chloride 0.9% (NS) flush 5-40 mL [...] mL/lumen 0900 (Given - Provider: Angelica Rosales RN)2202 (Given - Provider: Whitney Carrasquillo RN) 899 (Given - Provider: Meng Pastrana RN)2057 (Given - Provider: Rakel Garcia LPN) 0828 (Given - Provider: Divine Ptaino RN) PRN Medication Order 08/24/2022 08/25/2022 08/26/2022 melatonin tablet 10 mg 10 mg, Oral, Nightly PRN, sleep, Starting on 08/24/22 at 2220 melatonin tablet 5 mg (CANCELED) 5 mg, Oral, Nightly PRN, sleep, Starting on Fri08/23/22 at 1928 2208 (Given - Provider: Whitney Carrasquillo, SAUL) morphine sulfate (PF) injection 2 mg 2 [...] Rosales RN)1409 (Given - Provider: Eladia Valadez, SAUL) ondansetron ODT (Zofran-ODT) disintegrating tablet 4 mg(Linked [...] Shamar Casas RN)0740 (Given - Provider: Angelica Rosales, SAUL)1816 (Given - Provider: Angelica Rosales, SAUL) 1058 (See Alternative - Provider: Meng Pastrana RN)2245 (See Alternative - Provider: Sumanth Barbour RN) 1034 (See Alternative - Provider: Divine Patino, RN) oxyCODONE (Roxicodone) immediate release tablet 5 mg(Linked Group 2) 5 mg, Oral, Every 4 hours PRN, moderate pain (4-6), Starting on Fri08/23/22 at 1102 0214 (See Alternative - Provider: Shamar Casas RN)0740 (See Alternative - Provider: Angelica Rosales, SAUL)1816 (See Alternative - Provider: Angelica Rosales RN) 1058 (Given - Provider: Meng Pastrana RN)2245 [...] BE BASED ON THE PRIMARY CLINICAL RECORDS. [facility]. provides no warranty or guarantee of the accuracy or completeness of information in this document.
[2025-02-03 07:32] VITALS: PULSE 68; PULSE 70; PULSE 84; PULSE 87; PULSE 88; PULSE 90; PULSE 92; O2SAT 94; O2SAT 95; O2SAT 96; O2SAT 98
--- NOTE | 2025-02-04 10:53 | WT_ITS ---
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 Assistive device None used: Pre-test Oxygen Delivery Room Air Method Pulse Ox (%) 98 Pulse Rate (60-100 68 beats/min) Dyspnea Fortunato Scale ( 0 0-10) Exertion Fortunato Scale 6 (6-20) 1st minute Oxygen Delivery Room Air Method Pulse Ox (%) 96 Pulse Rate (60-100 84 beats/min) 2nd minute Oxygen Delivery Room Air Method Pulse Ox (%) 95 Pulse Rate (60-100 87 beats/min) 3rd minute Oxygen Delivery Room Air Method Pulse Ox (%) 96 Pulse Rate (60-100 88 beats/min) 4th minute Oxygen Delivery Room Air Method Pulse Ox (%) 94 Pulse Rate (60-100 90 beats/min) 5th minute Oxygen Delivery Room Air Method Pulse Ox (%) 96 Pulse Rate (60-100 90 beats/min) 6th minute Oxygen Delivery Room Air Method Pulse Ox (%) 96 Pulse Rate (60-100 92 beats/min) Dyspnea Fortunato Scale ( 3 0-10) Exertion Fortunato Scale 12 (6-20) Post-test Oxygen Delivery Room Air Method Pulse Ox (%) 98 Pulse Rate (60-100 70 beats/min) Full Laps Walked 20 Partial Lap, Number 5 of Tiles Walked Total Distance 1185 Walked (ft) Interpretation Interpretation: The patient ambulated 1185 feet over the course of 6 minutes beginning on room air without assistive devices. Pretesting oxygen saturation was noted to be 98% on room air. With ambulation, the wendie oxygen saturation was 94%. There was no significant exertional oxygen desaturation. Recommendations Recommendations: There is no indication for the use of supplemental oxygen at this time.
== END | disposition home or self-care (01) ==
LOC: PSN 06:52
PROVIDERS: PCP Family Medicine; Referring Provider Nurse Practitioner Acute Care; Visit Provider Nurse Practitioner Acute Care
DX: R06.02 Shortness of breath (principal)
CPT/HCPCS: 94618

== ENCOUNTER → 2025-03-30 | Outpatient (CLI) | payer MEDICARE, SELFPAY ==
[2025-03-30 12:30] LABS: Hematocrit 37.2 % (37-47); Hemoglobin 12.2 g/dL (12.0-15.0); Immature Granulocytes Count 0.010 X10^3/uL (0.0-0.0); Mean Corp Hgb Conc 32.8 g/dL (32-36); Mean Corpuscular Volume 96.1 fL (81-99); Mean Platelet Vol. 10.8 fl (6.2-12.0); NRBC Flagged by Analyzer 0 % (0-5); Platelet Count 237 K/mm3 (150-450); RBC Distribution Width CV 14.2 % (11.6-14.6); RBC Distribution Width SD 49.8 fl (35.1-43.9); Red Blood Count 3.87 M/mm3 (4.2-5.4); White Blood Count 5.0 K/mm3 (4.4-11.0)
[2025-03-30 13:14] LABS: Valproic Acid (Depakene) Level 67 ug/mL (50-100)
[2025-03-30 13:23] LABS: AST(SGOT) 18 U/L (<=31); Alanine Aminotransfer ALT/SGPT 15 U/L (<=34); Albumin, Serum 4.1 g/dL (3.4-4.8); Alkaline Phosphatase 54 U/L (35-104); Anion Gap 11 (5-15); BUN 28 mg/dL (4-19); BUN/Creat Ratio 23.5 RATIO (10-20); Calcium,Total 9.6 mg/dL (7.6-11.0); Carbon Dioxide 26.4 mmol/L (21.0-32.0); Chloride 104 mmol/L (98-108); Cholesterol 209 mg/dL (<=200); Globulin 3.0 g/dL (2.2-4.2); Glucose 83 mg/dL (70-99); Low Density Lipoprotein Calc. 120 mg/dL; Potassium 5.1 mmol/L (3.3-5.1); Triglycerides 46 mg/dL; Very Low Density Lipoprotein 9 mg/dL (5-40); Vitamin D,25 Hydroxy 110.0 ng/mL (30-100); cholesterol:hdl ratio screen 2.63
== END | disposition home or self-care (01) ==
LOC: MTLAB 09:30
PROVIDERS: PCP Family Medicine; Referring Provider Family Medicine; Visit Provider Family Medicine
DX: Z00.00 Encounter for general adult medical examination without abnormal findings (principal); E03.9 Hypothyroidism, unspecified; M81.0 Age-related osteoporosis without current pathological fracture; F31.78 Bipolar disorder, in full remission, most recent episode mixed
CPT/HCPCS: 36415; 80053; 80061; 80164; 82306; 84443; 85025

== ENCOUNTER → 2025-04-02 | Outpatient (CLI) | payer MEDICARE, SELFPAY ==
--- NOTE | 2025-04-02 10:14 | CT_ITS ---
PROCEDURE: LOW DOSE CT LUNG SCREENING 04/02/2025 REASON FOR EXAM: SMOKER QUIT 2013 TECHNIQUE: LOW DOSE CT LUNG SCREENING Coronal and Sagittal reconstruction series were provided. One or more dose reduction techniques were used (e.g., Automated exposure control, adjustment of the mA and/or kV according to patient size, use of iterative reconstruction technique). REFERENCE LINK: [employer] Lung-RADS RADIATION DOSE SUMMARY: CTDlvol: 2.01 mGy DLP: 68.46 mGycm COMPARISON: April 02, 2024 FINDINGS: LUNGS AND PLEURAL SPACES: Unchanged chronic right pleural fluid collection with associated pleural calcifications. Mild apparent scarring and pleural thickening in the left lower lung similar to the prior examination. Unchanged cluster of nodules in the lingula laterally some abutting the pleura and others parenchymal, unchanged since prior examination with largest nodular focus measuring 1 cm. There are multiple 3 to 4 mm pleural-based pulmonary nodules in the left lower lobe which are unchanged since prior examination. There is a 3 mm right middle lobe pulmonary nodule which is unchanged compared to prior examination. There is a posterior right upper lobe pulmonary nodule measuring 2 to 3 mm which is new compared to the prior examination. Rounded atelectasis in the right lower lobe. No pneumothorax. HEART: Coronary artery calcifications. Heart size is normal. No pericardial effusion. MEDIASTINUM: No significant abnormality. No mediastinal or hilar adenopathy. Esophagus is unremarkable. No hiatal hernia. THYROID: No significant abnormality. No thyroid lesions. BONES/JOINTS: Chronic posttraumatic and/or operative changes of right posterior ribs. Degenerative changes in the spine. No suspicious lytic or blastic abnormality. VASCULATURE: Atherosclerosis. LYMPH NODES: No significant abnormality. No enlarged lymph nodes. CT/Low Dose CT Lung Screening IMPRESSION: 1. ACR Lung CT Screening Reporting And Data System (Lung-RADS) score: 2S - Benign Appearance or Behavior. Additional clinically significant or potentially clinically significant findings are described. Recommend continued annual screening with a low-dose CT (LDCT) in 12 months. 2. Unchanged chronic right pleural fluid collection with associated pleural calcifications. 3. Rounded atelectasis in the right lower lobe. Reading Location[facility]
--- OUTSIDE RECORDS SUMMARY | 2025-04-02 10:15 | XMS RPT_ITS | CCD ---
Author Organization [facility] Care Team Providers Care Systems Design Engineer Name Role Phone Naveen HUGHES, Patricia Hernandez Unavailable Naveen RN, Patricia Hernandez Unavailable Naveen HUGHES, Patricia Hernandez Unavailable DeFinisJefferson Y Unavailable Unavailable DeFinis, Harumi Y Unavailable Unavailable Roof RETIREMENT ASSISTANT, Wiley Villa Unavailable Madhuri White Unavailable Naveen HUGHES, Patricia Hernandez Unavailable [phone] Prosper Hay Unavailable Unavailable Inocente Quijano Unavailable [...] Ene DUMONT, Libby Roberto Primary Care Provider Libby Luque MD Primary Care Provider Libby Luque MD Primary Care Provider Libby Luque MD Unavailable PROSPER HAY Attending Unavailable LIBBY LUQUE Primary Care Unavailabl e PROSPER HAY Attending Unavailable MIEDEL, LIBBY LANCASTER Primary Care Unavailabl e Miedel, Libby Primary Care Unavailable Miedel, Libby Referring Unavailable Camacho RETIREMENT ASSISTANT, Brooke Attending Unavailable Miedel, Libby Primary Care Unavailable Camacho RETIREMENT ASSISTANT, Brooke Attending Unavailable Camacho RETIREMENT ASSISTANT, Brooke Referring Unavailable Miedel, Libby Primary Care Unavailable Camacho RETIREMENT ASSISTANT, Brooke Referring Unavailable Camacho RETIREMENT ASSISTANT, Brooke Attending Unavailable Miedel, Libby Primary Care Unavailable Miedel, Libby Referring Unavailable Diane San Attending Unavailable Miedel, Libby Primary Care Unavailable Janice RETIREMENT ASSISTANT, Brooke Consulting Unavailable Camacho RETIREMENT ASSISTANT, Brooke Referring Unavailable David Talavera Attending Unavailable Miedel, Libby Primary Care Unavailable Miedel, Libby Referring Unavailable Janice RETIREMENT ASSISTANT, Brooke Attending Unavailable Miedel, Libby Referring Unavailable Diane San Attending Unavailable Miedel, [place] Primary Care Unavailable Kirk Amaral Attending Unavailable Miedel, Libby Primary Care Unavailable Miedel, Libby Attending Unavailable Miedel, Libby Primary Care Unavailable Miedel, Libby Referring Unavailable Miedel, Libby Primary Care Unavailable BrownDavid Referring Unavailable David Talavera Attending Unavailable Miedel, Libby Attending Unavailable Miedel, Libby Primary Care Unavailable Miedel, Libby Referring Unavailable Miedel, Libby Attending Unavailable Miedel, Libby Primary Care Unavailable Miedel, Libby Referring Unavailable Miedel, Libby Primary Care Unavailable Miedel, Libby Referring Unavailable Miedel, Libby Attending Unavailable Miedel, Libby Primary Care Unavailable Miedel, Libby Referring Unavailable Janice RETIREMENT ASSISTANT, Brooke Attending Unavailable Miedel, Libby Primary Care Unavailable Camacho RETIREMENT ASSISTANT, Brooke Referring Unavailable Camacho RETIREMENT ASSISTANT, Brooke Attending Unavailable Miedel, Libby Primary Care Unavailable Camacho RETIREMENT ASSISTANT, Brooke Referring Unavailable Camacho RETIREMENT ASSISTANT, Brooke Attending Unavailable Allergies Allergy Classification Reported Allergen(s) Allergy Type Date of Onset Reaction(s) Facility (20 sources) codeine; Translations: [codeine] drug allergy 7 Unknown, Nausea/vomiting , Nausea And Vomiting [facility] Work Phone: (19 sources) Doxepin; Translations: [doxepin] Drug Allergy 4 Unknown [facility] Work Phone: (20 sources) gabapentin; Translations: [GABAPENTIN] Drug Allergy [address] [facility] (19 sources) meloxicam Drug Allergy 2 [facility] Medications Current Medications Medication Drug Class(es) Dates Sig (Normalized) Sig (Original) docosahexaenoic acid 120 mg / eicosapentaenoic acid 180 mg oral capsule (18 sources) fish oil concent rate (Emmet-3) 120-180 mg capsule Take by mouth. Active [...] Active magnesium oxide 400 mg oral tablet (4 sources) magnesium oxide (Mag-Ox) 400 mg tablet Take by mouth. Active gepjnhcb-wdv-uzqzh acid-biotin (Hair,Skin and Nails,FA-biotin,) 133.3 mcg- 1,666.7 mcg capsule (4 sources) take 1 capsule by mo ut once xwmuwjvl-uny-eckhp acid-biotin (Hair,Skin and Nails,FA-biotin,) 133.3 mcg- 1,666.7 mcg capsule Take by mouth. Active pugykfrl-fjs-fky ic acid-biotin (Hair,Skin and Nails,FA-biotin,) 133.3 mcg- 1,666.7 mcg capsule Take by mouth. 0 Active multivitamin tablet (4 sources) multivitamin tab let Take by mouth. [...] a day as needed 0 10/02/2021 Active divalproex sodium 500 mg delayed release oral tablet (20 sources) Mood Stabilizer, Anti-epileptic Agent Start: 02-22-2025 End: 08-21-2025 take 1 tablet by mouth once daily at bedtime divalproex (Depakote) 500 mg EC tablet Indications: Bipolar disorder, in full remission, most recent episode mixed (Multi) Take 1 tablet (500 mg) by mouth once daily at bedtime. 90 tablet 1 02/22/2025 08/21/2025 Active Start: 11-28-2023 End: 02-20-2025 take 1 tablet [...] daily at bedtime DEPAKOTE ER 250 MG QQ88X-[id number] One tablet by mouth daily @ bedtime DIVALPROEX SODIUM [id number] Patricia Hodge RN Start: 04-16-2017 take 1 tablet by karel th once daily at bedtime DEPAKOTE ER 250 MG [id number] One tablet by mouth daily @ bedtime DIVALPROEX SODIUM [id number] Patricia Hodge RN Completed/Discontinued Medications Medication Drug Class(es) Dates Sig [...] Do not crush, chew, or split. B FKPXMRC-K-AGGFJ ACID (3 sources) Start: 06-12-2017 take 1 tablet by mouth once daily STRESS 500 B-COMPLEX TABS One tablet by mouth daily B ELMIXPF-C-KSRGT ACID [id number] Wiley Tinsley NP BIOFLAVONOID PRODUCTS TABS (3 sources) Start: 06-12-2017 take 1 tablet by mouth once daily YANETH-C TABS One tablet by mouth daily BIOFLAVONOID PRODUCTS TABS [id number] Wiley Tinsley NP brompheniramine maleate 0.4 mg/ml / dextromethorphan hydrobromide 2 mg/ml / pseudoephedrine hydrochloride 6 mg/ml oral solution (2 sources) alpha-Adrenergic Agonist, Uncompetitive B-vlfvjl-C-asparta te Receptor Antagonist, Sigma-1 Agonist Start: 06-03-2022 [...] 08-23-2022 End: 08-23-2022 lactated Ringer's (LR) infusion INEERSR-ZWYEDJWLF-SADS MIN D (3 sources) Start: 06-12-2017 take 1 tablet by mouth once daily CALCIUM-MAGNESIUM- VITAMIN D 200-100-33.3 MG-MG-UNIT CAPS One tablet by mouth daily CALCIUM-MAGNESIUM- VITAMIN D [id number] Wiley Tinsley NP chlorpheniramine / dextromethorphan (3 sources) Histamine-1 Receptor Antagonist, Uncompetitive B-wnuqvu-N-asparta te Receptor Antagonist, Sigma-1 Agonist Start: 06-12-2017 take 1 tablet by mouth once daily EQL LECITHIN 1200 MG CAPS One tablet by mouth daily LECITHIN [id number] Wiley Tinsley RETIREMENT ASSISTANT 0.4 ml enoxaparin sodium 100 mg/ml prefilled [...] One tablet by mouth daily FERROUS GLUCONATE [id number] Wiley Tinsley RETIREMENT ASSISTANT ferrous sulfate 325 mg oral tablet (20 sources) Start: 06-12-2017 take 1 tablet by mouth once daily FERROUS SULFATE 325 (65 Fe) MG TABS One tablet by mouth daily FERROUS SULFATE [id number] Wiley Alvina VIVAS ferrous sulfate, 325 mg ferrous sulfate, tablet [...] TABS One tablet by mouth daily FUROSEMIDE [id number] Patricia Hodge RN Start: 04-16-2017 take 1 tablet by karel th once daily FUROSEMIDE 40 MG TABS One tablet by mouth daily FUROSEMIDE [id number] Atif Avalos MD Hair Skin Nails CAPS [...] Active Magnesium TABS R efills: 0 Active YOZZDHZ-SIGEQ-OHNM-PASSF-LBA LM (3 sources) Start: 06-12-2017 take 2 tablets by mouth once daily SLEEP CAPS Two tablets by mouth daily XWKRUJL-KMZEP-RSFI-PASSF-LBALM [id number] Wiley Tinsley NP melatonin 5 mg oral tablet (16 sources) Start: 08-24-2022 End: 08-26-2022 melatonin tablet 10 mg Start: 08-23-2022 End: 08-24-2022 melatonin tablet 5 mg Start: 04-16-2017 End: 06-12-2017 take 2 tablets by mouth at bedtime as needed MELATONIN 3 MG TABS Two tablet by mouth at bedtime. As needed MELATONIN [id number] Wiley Tinsley NP 1 ml morphine sulfate [...] One tablet by mouth daily MULTIPLE VITAMINS-MINERALS 57437271696 Wiley Tinsley NP ondansetron ODT (Zofran-ODT) disintegrating [...] TABS One tablet by mouth daily PREDNISONE [id number] Atif Avalos MD 5 ml sodium chloride [...] Start: 08-23-2022 End: 08-26-2022 5-250 mL/hr, IntraVENous, VT N, if patient receiving piggyback infusions and [...] tablet by mouth three times daily TURMERIC [id number] Wiley Tinsley RETIREMENT ASSISTANT Vitamin B Complex Oral Tablet (12 sources) Vitamin B Comple x Oral [...] remission] Onset: 08-14-2023 Resolved: 11-03-2020 2023 Chronic Osteoporosis (1 source) Age-related osteoporosis without current pathological fracture; Translations: [Age-related osteoporosis without current pathological fracture] Onset: 03-30-2025 Chronic Other lower respiratory disease (2 sources) Shortness of breath; Translations: [Shortness of breath] Onset: 02-22-2025 Episodic Other non-traumatic joint disorders (1 source) Pain in left knee; Translations: [Pain in left knee] Onset: 02-18-2025 Episodic Other nutritional; endocrine; and metabolic disorders (14 sources) H/O: hypothyroidism; Translations: [Personal history of other endocrine, metabolic, and immunity disorders] Episodic Residual codes; unclassified (1 source) Obstructive sleep apnea (adult) (pediatric); Translations: [Obstructive sleep apnea (adult) (pediatric)] Onset: 09-13-2024 Chronic Substance-related disorders (2 sources) Nicotine dependence, cigarettes, in remission; Translations: [Nicotine dependence, cigarettes, in remission] Onset: 09-13-2024 Chronic Thyroid disorders (10 sources) Hypothyroidism; Translations: [Hypothyroidism, unspecified] Onset: 04-16-2017 04-16-2017 Chronic Unclassified (2 sources) Results; Translations: [Results] Onset: 07-25-2022 Past or Other Problems Problem Classification Problem Date Documented Date Episodic/Chronic Genitourinary symptoms and ill-defined conditions (2 sources) Unspecified abnormal findings in urine; Translations: [Dysuria] Onset: 08-26-2024 Episodic Other nervous system disorders (18 sources) Paresthesia of lower extremity; Translations: [Disturbance [...] Onset: 04-16-2017 04-16-2017 Episodic Residual codes; unclassified (18 sources) Sleep disorder; Translations: [Sleep disturbance, unspecified] Onset: 08-14-2023 08-14-2023 Episodic Residual codes; unclassified (18 sources) Abnormal sensation; Translations: [Disturbance of skin [...] Translations: [Edema] Onset: 04-16-2017 04-17-2017 Episodic Unclassified (3 sources) Onset: 02-17-2024 Resolved: 03-22-2025 02-17-2024 NEGATED: Highlighted row has not occurred!Residual codes; unclassified (6 sources) Disease Episodic Results Test Name Value Interpretation Reference Range Facility CBC W/Diff, Automatedon 08-2 Absolute Lymph 1.70 X10 3/uL Normal 0.83-4.51 [facility] Comment on above: Performed By: #### L 500.4100, L506.1001, L501.9520, L100.0100, L501.8100, L500.4050 #### [facility] [address] [place], [address] Absolute Neut 2.4 X10 3/uL Normal 2.0-7.7 [facility] Comment on above: Performed By: #### L 500.4100, L506.1001, L501.9520, L100.0100, L501.8100, L500.4050 #### [facility] [address] [place], [address] Basophils/100 WBC (Bld) 1.0 % Normal 0-1 [facility] Comment on above: Performed By: #### L 500.4100, L506.1001, L501.9520, L100.0100, L501.8100, L500.4050 #### [facility] [address] [place], [address] Eosinophils/100 WBC (Bld) 6.6 % High 0-5 [facility] Comment on above: Performed By: #### L 500.4100, L506.1001, L501.9520, L100.0100, L501.8100, L500.4050 #### [facility] [address] [place], [address] Erythrocyte distribution width (RBC) [Ratio] 14.2 % Normal 11.6-14.6 [facility] Comment on above: Performed By: #### L 500.4100, L506.1001, L501.9520, L100.0100, L501.8100, L500.4050 #### [facility] [address] [place], [address] Hematocrit (Bld) [Volume fraction] 37.2 % Normal 37-47 [facility] Comment on above: Performed By: #### L 500.4100, L506.1001, L501.9520, L100.0100, L501.8100, L500.4050 #### [facility] [address] [place], [address] Hemoglobin (Bld) [Mass/Vol] 12.2 g/dL Normal 12.0-15.0 [facility] Comment on above: Performed By: #### L 500.4100, L506.1001, L501.9520, L100.0100, L501.8100, L500.4050 #### [facility] [address] [place], [address] IG% 0.200 Normal 0.0-0.9 [facility] Comment on above: Result Comment: IG% - Immature Granulocytes (promyelocytes, myelocytes and metamyelocytes) > 1% indicates that a LEFT SHIFT is Present. Performed By: #### L 500.4100, L506.1001, L501.9520, L100.0100, L501.8100, L500.4050 #### [facility] [address] [place], [address] Lymphocytes/100 WBC (Bld) 34.0 % Normal 19-41 [facility] Comment on above: Performed By: #### L 500.4100, L506.1001, L501.9520, L100.0100, L501.8100, L500.4050 #### [facility] [address] [place], [address] MCH (RBC) [Entitic mass] 31.5 pg Normal 27.0-32.0 [facility] Comment on above: Performed By: #### L 500.4100, L506.1001, L501.9520, L100.0100, L501.8100, L500.4050 #### [facility] [address] [place], [address] MCHC (RBC) [Mass/Vol] 32.8 g/dL Normal 32-36 [facility] Comment on above: Performed By: #### L 500.4100, L506.1001, L501.9520, L100.0100, L501.8100, L500.4050 #### [facility] [address] [place], [address] MCV (RBC) [Entitic vol] 96.1 fL Normal 81-99 [facility] Comment on above: Performed By: #### L 500.4100, L506.1001, L501.9520, L100.0100, L501.8100, L500.4050 #### [facility] [address] [place], [address] Monocytes/100 WBC (Bld) 9.8 % Normal 0-10 [facility] Comment on above: Performed By: #### L 500.4100, L506.1001, L501.9520, L100.0100, L501.8100, L500.4050 #### [facility] [address] [place], [address] Neutrophils/100 WBC (Bld) 48.4 % Normal 47-70 [facility] Comment on above: Performed By: #### L 500.4100, L506.1001, L501.9520, L100.0100, L501.8100, L500.4050 #### [facility] [address] [place], [address] Nucleated RBC (Bld) [#/Vol] 0 10*3/uL Normal 0-5 [facility] Comment on above: Performed By: #### L 500.4100, L506.1001, L501.9520, L100.0100, L501.8100, L500.4050 #### [facility] [address] [place], [address] Platelet mean volume (Bld) [Entitic vol] 10.8 fL Normal 6.2-12.0 [facility] Comment on above: Performed By: #### L 500.4100, L506.1001, L501.9520, L100.0100, L501.8100, L500.4050 #### [facility] [address] [place], [address] Platelets (Bld) [#/Vol] 237 10*3/uL Normal 150-450 [facility] Comment on above: Performed By: #### L 500.4100, L506.1001, L501.9520, L100.0100, L501.8100, L500.4050 #### [facility] [address] [place], [address] RBC (Bld) [#/Vol] 3.87 10*6/uL Low 4.2-5.4 [facility] Comment on above: Performed By: #### L 500.4100, L506.1001, L501.9520, L100.0100, L501.8100, L500.4050 #### [facility] [address] [place], [address] RDW SD 49.8 fl High 35.1-43.9 [facility] Comment on above: Performed By: #### L 500.4100, L506.1001, L501.9520, L100.0100, L501.8100, L500.4050 #### [facility] [address] [place], [address] WBC (Bld) [#/Vol] 5.0 10*3/uL Normal 4.4-11.0 [facility] Comment on above: Performed By: #### L 500.4100, L506.1001, L501.9520, L100.0100, L501.8100, L500.4050 #### [facility] [address] [place], [address] Comprehensive Metabolic [facility] 03-30-2025 Albumin [Mass/Vol] 4.1 g/dL Normal 3.4-4.8 [facility] Comment on above: Performed By: #### M 100.2200 #### [facility] [address] [place], [address] Albumin/Globulin [Mass ratio] 1.4 {ratio} Normal 0.9-2.4 [facility] Comment on above: Performed By: #### M 100.2200 #### [facility] [address] [place], [address] ALK PHOS 54 U/L Normal 35-104 [facility] Comment on above: Performed By: #### M 100.2200 #### [facility] [address] [place], [address] ALT [Catalytic activity/Vol] 15 U/L Normal <=34 [facility] Comment on above: Performed By: #### M 100.2200 #### [facility] [address] [place], [address] AST [Catalytic activity/Vol] 18 U/L Normal <=31 [facility] Comment on above: Performed By: #### M 100.2200 #### [facility] [address] [place], [address] Bilirubin [Mass/Vol] 0.24 mg/dL Normal 0.00-1.30 [facility] Comment on above: Performed By: #### M 100.2200 #### [facility] [address] [place], [address] BUN/CRE 23.5 RATIO High 10-20 [facility] Comment on above: Performed By: #### M 100.2200 #### [facility] [address] [place], [address] Calcium [Mass/Vol] 9.6 mg/dL Normal 7.6-11.0 [facility] Comment on above: Performed By: #### M 100.2200 #### [facility] [address] [place], [address] Chloride [Moles/Vol] 104 mmol/L Normal 98-108 [facility] Comment on above: Performed By: #### M 100.2200 #### [facility] [address] [place], [address] CO2 [Moles/Vol] 26.4 mmol/L Normal 21.0-32.0 [facility] Comment on above: Performed By: #### M 100.2200 #### [facility] [address] [place], [address] Creatinine [Mass/Vol] 1.18 mg/dL Normal 0.70-1.20 [facility] Comment on above: Performed By: #### M 100.2200 #### [facility] [address] [place], [address] GAP 11 Normal 5-15 [facility] Comment on above: Performed By: #### M 100.2200 #### [facility] [address] [place], [address] GFR/1.73 sq M.predicted among non-blacks MDRD (S/P/Bld) [Vol rate/Area] 49 mL/min/{1.73_m2} Low >60 [facility] Comment on above: Result Comment: mL/m in/1.73m2 CKD-EPI Creatinine Equation (2020) Performed By: #### M 100.2200 #### [facility] [address] [place], [address] Globulin (S) [Mass/Vol] 3.0 g/dL Normal 2.2-4.2 [facility] Comment on above: Performed By: #### M 100.2200 #### [facility] [address] [place], [address] Glucose [Mass/Vol] 83 mg/dL Normal 70-99 [facility] Comment on above: Performed By: #### M 100.2200 #### [facility] [address] [place], [address] Potassium [Moles/Vol] 5.1 mmol/L Normal 3.3-5.1 [facility] Comment on above: Performed By: #### M 100.2200 #### [facility] [address] [place], [address] Sodium [Moles/Vol] 141 mmol/L Normal 133-145 [facility] Comment on above: Performed By: #### M 100.2200 #### [facility] [address] [place], [address] T PROT 7.1 g/dL Normal 5.9-8.4 [facility] Comment on above: Performed By: #### M 100.2200 #### [facility] [address] [place], [address] Urea nitrogen [Mass/Vol] 28 mg/dL High 4-19 [facility] Comment on above: Performed By: #### M 100.2200 #### [facility] [address] [place], [address] Lipid Profileon 03-30-2025 CHOL:HDL 2.63 Normal [facility] Comment on above: Performed By: #### M 100.2200 #### [facility] [address] [place], [address] Cholesterol [Mass/Vol] 209 mg/dL High <=200 [facility] Comment on above: Result Comment: Chol esterol level, Desirable <200 mg/dL Borderline high cholesterol 200-239 mg/dL High cholesterol >=240 mg/dL Recommendations of the NCEP Adult Treatment Panel for the following risk-cutoff thresholds for the [place] population. Performed By: #### M 100.2200 #### [facility] [address] [place], [address] Cholesterol in HDL [Mass/Vol] 79 mg/dL Normal [facility] Comment on above: Result Comment: Blanka onal Cholesterol Education Program (NCEP) guidelines: <40 mg/dL: Low HDL-cholesterol (major risk factor for CHD) >= 60 mg/dL: High HDL-cholesterol (negative risk factor for CHD) HDL-cholesterol is affected by a number of factors, e.g. smoking, exercise, hormones, sex and age. Performed By: #### M 100.2200 #### [facility] [address] [place], [address] Cholesterol in LDL [Mass/Vol] 120 mg/dL Normal [facility] Comment on above: Result Comment: Bord wlugjb=942-766 mg/dL Higher Pqdk=391 mg/dL or greater Friedwald Equation for LDL-C Performed By: #### M 100.2200 #### [facility] [address] [place], [address] Cholesterol in VLDL [Mass/Vol] 9 mg/dL Normal 5-40 [facility] Comment on above: Performed By: #### M 100.2200 #### [facility] [address] [place], [address] Triglyceride [Mass/Vol] 46 mg/dL Normal [facility] Comment on above: Result Comment: The drugs N-Acetylcysteine and Metamizole may falsely depress this assay. Normal range: <150 mg/dL Borderline High: 150-199 mg/dL High: 200-499 mg/dL Very High: >500 mg/dL Performed By: #### M 100.2200 #### [facility] [address] [place], [address] Thyroid Stim Hormone (TSH)on 03-30-2025 TSH 4.560 uIU/mL High 0.300-4.200 [facility] Comment on above: Performed By: #### M 100.2200 #### [facility] [address] [place], [address] Valproic Acid (Depakene) Lev aditya 03-30-2025 VALPROIC ACID 67 ug/mL Normal 50-100 [facility] Comment on above: Result Comment: Valp roic Acid concentrations >100 ug/mL are potentially toxic. Performed By: #### L 500.4100, L506.1001, L501.9520, L100.0100, L501.8100, L500.4050 #### [facility] [address] [place], [place], [address] Vitamin D,25 Hydroxyon 03-30 Vitamin D 25-OH 110.0 ng/mL High 30-100 [facility] Comment on above: Result Comment: Gertrude min D Status Deficiency: <20 ng/mL (50nmol/L) Insufficiency: 20-30 ng/mL (50-75 nmol/L) Sufficiency: 30-100 ng/mL (75-250 nmol/L) Toxicity: >100 ng/mL (>250 nmol/L) Performed By: #### M 100.2200 #### [facility] [address] [place], [address] Knee 4 or More Viewson 02-18 Knee 4 or More Views [facility] [address] [place], [place] [address] Knee 4 or More Views MR#: [id number] Acct: [id number] Name: RICARDA OLIVA Rep #: [id number] : 1950 F 74 From: Sumanth Matos MD PCP: Dr. Libby Luque MD Status: DEP AMB Study: Knee 4 or More Views Date of Exam: 02/18/25 Exam# [id number] Ordering Dr: Diane San EXAM: XR Left Knee Complete, 4 or More Views CLINICAL INDICATION: PAIN X 3 DAYS, NKI TECHNIQUE: Four or more views of the left knee. COMPARISON: No relevant prior studies available. FINDINGS: BONES/JOINTS: Unremarkable. No acute fracture. No dislocation. SOFT TISSUES: Unremarkable. RAD/Knee 4 or More Views IMPRESSION: No acute fracture. Reading Location: [facility] CC: RETIREMENT ASSISTANT-C Diane San; Dr. Libby Luque MD Comic Illustrator: Signed Normal [facility] Orthopedic Visit Reporton Orthopedic Visit Report [facility] [address] [place] [address] [address] [place] [address] OFFICE VISIT Date of Service: 02/18/25 MR#: [id number] Acct: [id number] Name: RICARDA OLIVA Rep #: [id number] : 1950 Provider: TENNILLE jaimes Age/Sex: 74/F Location: [facility].JOCELYN Status: Signed Intake Vital Signs 02/08/25 08:28 Height 4 ft 10 in Intake Visit Reasons: RIGHT KNEE Chief Complaint: left knee Allergies codeine Adverse Reaction (Intermediate, Verified 02/18/25 13:08) Vomiting Medications ???Medication ???Instructions ???Recorded ???Confirmed ???Type levothyroxine 25 mcg tablet 25 mcg PO DAILY 02/11/14 02/18/25 History divalproex 500 mg tablet,delayed 500 mg PO QHS 06/17/18 02/18/25 Hi story release (Depakote) Have you fallen in the past year?: Yes (September) [facility] Medical History Hx of psychiatric hospitalization History [...] never substance use type: does not use HPI RIGHT KNEE Details: This documentation accurately reflects the service provided and the decisions made by me, TENNILLE Paniagua 02/18/25 7768. Part of today???s visit was documented by Kriss LAWTON, acting as scribe. RICARDA OLIVA is a 74 year old F here today for left knee pain that started on Friday night. She did have a fall in September where she landed on the knee. She states that her pain is over her posterior knee and radiates into her calf. She did have a massage recently that did help with the pain in her calf. She denies any recent injury to the knee. She denies physical therapy. She denies having injections in the knee. She denies popping and clicking in the knee. She denies catching. She does have trouble bending the knee due to pain. She denies taking anything for the pain but has been using Biofreeze on the knee which has helped. Agree with above. Glendy is a pleasant 74-year-old female presenting today for evaluation of L posterior knee and calf pain x 2 days, stiff and sore, difficulty bending; sx are improving since this this am and after assage of leg today. No OTC oral meds, BioFreeze helped some. Worse after sitting or active. [place] 36 qts cherries on Friday with prolonged wt bearing activity, no identified injury. No similar episodes in the past. Denies any mechanical symptoms, stiffness improves after initiating activity and ambulation. Denies any warmth to sore areas, no redness, no personal or family history of DVT, no recent travel or other provoking factors identified ROS Const All systems reviewed are unremarkable except as noted in H and other (A O x 3, no apparent distress. No recent illness.) ENT Denies dizziness Card Denies chest pain, Denies dyspnea, Denies edema and Reports other (No palpitations) Resp Denies cough, Denies dyspnea and Reports other (No recent URI) GI Reports system reviewed and no additional complaints, except as documented, Denies nausea and Denies vomiting Musc Reports as per HPI, Reports arthralgias and Reports limited range of motion Neuro No dizziness Psych Reports system reviewed and no additional complaints, except as documented [place]/Lymph Denies easy bleeding and Denies easy bruising Ortho Exam Left Knee KNEE: Skin is pink, warm, dry and intact. There is no ecchymosis or discoloration present, mild swelling to popliteal fossa, soft and minimally tender in nature. Range of motion: 0 to 100 degrees, stiff greater than 90 Palpation: Mild and improving tenderness with palpation of the popliteal fossa and just distal to mid calf and mild to lateral joint line. There is no warmth, erythema, discoloration noted. Special tests: Karishma negative; Sarah [Negative]; anterior drawer negative; posterior drawer negative; medial joint opening negative; lateral joint opening negative Lower leg is soft, nontender, easily compressible, Homans negative Mild crepitus palpated during assessment Full range of motion at the hip and low back, mild tenderness over the greater trochanteric region, no stiffness or pain over palpation of the IT band. Gait: Ambulates with steady gait, limping with first few steps (more content not included)... Normal [facility] Pulmonary Visit Reporton Pulmonary Visit Report [facility] [place] [address] [place] [address] OFFICE VISIT Date of Service: 02/08/25 MR#: [id number] Acct: [id number] Name: RICARDA OLIVA Rep #: [id number] : 1950 Provider: TENNILLE Camacho Age/Sex: 74/F Location: [facility].PMW Status: Signed Assessment and Plan Assessment and Plan (1) Shortness of breath: Status: Acute Plan: Improved. Recent PFT and walk test indicates stability. Exertional hypoxia ruled out. No therapy changes given symptom improvement and resolution of wheezing. Keep previously scheduled follow up in April. (2) FCO (obstructive sleep apnea): Status: Chronic Plan: Stable, she is using and benefiting from Pap therapy. No indication for titration study at this time. Contact the office for any new or worsening symptoms in the meantime. Follow-up in [facility]. (3) Nicotine dependence, cigarettes, in remission: Status: Chronic Comment: Greater than 76-vnml-nctr smoking history quit in November 2013 Plan: LDCT due 03/11/2025, ordered previously. Follow up in April to discuss test results. Plan Details Additional Comments: This note was generated with [employer] dictation software. It may contain incorrect words, spelling, and punctuation that were not noted in checking the note before signing. HPI 3 wk fu Chief Complaint: test results HPI Comments Details: This patient presents to the office today for shortness of breath with a history of loculated pleural effusion to discuss test results. She is ambulatory and on room air. She has not recently been seen in the ED or urgent care for any respiratory illness. She has not required any antibiotics or prednisone for any breathing problems. She is not currently on any inhalers. If you recall, she quit smoking in November 2013. She does have greater than 15-vczv-ndle smoking history. She is having shortness of breath on exertion, but reports that it is better than when here last time. She is now wondering if her increase in symptoms was because of seasonal allergies. She denies any wheezing, chest tightness, chest pain or palpitations. She denies any cough, sputum production or hemoptysis. She has not had any fever, chills or body aches. She wakes up feeling rested and refreshed with use of her Pap device. If you recall, she has always had a higher than desired residual AHI. She reports some difficulty with dry mouth. She is not having excessive nocturia. She is not requiring naps. She also denies morning headaches. Compliance report for the past 30 days shows 100% compliance with an average use of 8 hours and 10 minutes per night. Current setting is 12/8 cm of water with a residual AHI of 11.4 events per hour, of note central events are only 0.5 events per hour. Leaks do not appear to be problematic. Test results personally reviewed with the patient: Pulmonary function test completed on February 02, 2025. Impression is moderate restorative ventilatory impairment with symmetric reduction in diffusing capacity. Walking oximetry completed on February 03, 2025. The patient was able to ambulate a total of 1185 feet over the course of 6 minutes. She did not become hypoxic and is not currently requiring or qualifying for supplemental oxygen. Intake Vital Signs 01/25/25 08:15 02/08/25 08:28 Height 4 ft 10 in 4 ft 10 in Weight: 123 lb 2 oz BMI 25.7 BP 127/69 H Blood Pressure Location Lt brachial Position Sitting Respiration 18 Pulse 76 Pulse Source Monitor Temp 97.5 F L Temperature Source Temporal Artery Pulse Oximetry (%) 95 Oxygen Delivery Method room air Intake Visit Reasons: 3 wk fu Chief Complaint: 1 yr FU Global Logistics Analyst Required: No DME Vendor: Abraham Accompanied by: Self Allergies codeine Adverse Reaction (Intermediate, Verified 02/08/25 09:39) Vomiting Medications ???Medication ???Instructions ???Recorded ???Confirmed ???Type levothyroxine 25 mcg tablet 25 mcg PO DAILY 02/11/14 02/08/25 History divalproex 500 mg tablet,delayed 500 mg PO QHS 06/17/18 02/08/25 Hi story release (Depakote) Have you fallen in the past year?: Yes PFSH Medical History Hx of psychiatric hospitalization History of mental disorder Restless leg syndrome Lung nodule FCO (obstructive sleep apnea) Bipolar disorder Chronic back pain Hypothyroidism Nonrheumatic mitral (valve) prolapse Surgical History History of cataract surgery History of hammer toe correction History of thoracentesis Family History Mother Diabetes Cancer Grandmother Diabetes Hypertension Social History (Reviewed (more content not included)... Normal [facility] 6 Minute Walk Teston -27-2 025 6 Minute Walk Test y [facility] Pul[facility] Services/Neurology [address] [place] [address] MR#: [id number] Acct: [id number] Name: RICARDA OLIVA Rep #: [id number] : 1950 74 From: David Talavera DO Referring Dr: Brooke Camacho NP RETIREMENT ASSISTANT-C Status: REG CLI Location: PSN Date: Sex: F C PSN 6 Minute Walk Test 6 Minute Walk Test 6 Minute Walk Test: 6 Minute Walk Test PSN:6-Minute Walk Test Start: 02/03/25 07:32 Freq: Status: Active Protocol: RESP.6MINW Document 02/03/25 07:32 SBON (Rec: 02/03/25 07:40 SFENTON [id number]) 6 Minute Walk Test Date Performed 02/03/25 Time Performed 07:00 Height 4 ft 10 in Weight: 120 lb Weight in Pounds 120.[address]: Brooke Camacho NP Assistive device None used: Pre-test Oxygen Delivery Room Air Method Pulse Ox (%) 98 Pulse Rate (60-100 68 beats/min) Dyspnea Fortunato Scale ( 0 0-10) Exertion Fortunato Scale 6 (6-20) 1st minute Oxygen Delivery Room Air Method Pulse Ox (%) 96 Pulse Rate (60-100 84 beats/min) 2nd minute Oxygen Delivery Room Air Method Pulse Ox (%) 95 Pulse Rate (60-100 87 beats/min) 3rd minute Oxygen Delivery Room Air Method Pulse Ox (%) 96 Pulse Rate (60-100 88 beats/min) 4th minute Oxygen Delivery Room Air Method Pulse Ox (%) 94 Pulse Rate (60-100 90 beats/min) 5th minute Oxygen Delivery Room Air Method Pulse Ox (%) 96 Pulse Rate (60-100 90 beats/min) 6th minute Oxygen Delivery Room Air Method Pulse Ox (%) 96 Pulse Rate (60-100 92 beats/min) Dyspnea Fortunato Scale ( 3 0-10) Exertion Fortunato Scale 12 (6-20) Post-test Oxygen Delivery Room Air Method Pulse Ox (%) 98 Pulse Rate (60-100 70 beats/min) Full Laps Walked 20 Partial Lap, Number 5 of Tiles Walked Total Distance 1185 Walked (ft) Interpretation Interpretation: The patient ambulated 1185 feet over the course of 6 minutes beginning on room air without assistive devices. Pretesting oxygen saturation was noted to be 98% on room air. With ambulation, the wendie oxygen saturation was 94%. There was no significant exertional oxygen desaturation. Recommendations Recommendations: There is no indication for the use of supplemental oxygen at this time. 02/04/25 1054 Date David Talavera DO CC: Date Dictated: 02/04/25 1053 Date Transcribed: 02/04/251052 Comic Illustrator: Dr. David Talavera DO Signed Normal [facility] Pulmonary Visit Reporton Pulmonary Visit Report [facility] of [address] [place] [address] OFFICE VISIT Date of Service: 01/25/25 MR#: [id number] Acct: [id number] Name: RICARDA OLIVA Rep #: [id number] : 1950 Provider: TENNILLE Camacho Age/Sex: 74/F Location: [facility].PMW Status: Signed Assessment and Plan Assessment and [...] Additional Comments: This note was generated with [employer] dictation software. It may contain incorrect words, [...] November 2013. She does have greater than 56-tmyd-bzye smoking history. She is having shortness of [...] Acute SOB Chief Complaint: 1 yr FU Global Logistics Analyst Required: Yue GOMEZ Vendor: Abraham Accompanied by: Self Allergies codeine Adverse Reaction (Intermediate, Verified 01/25/25 10:48) Vomiting Medications ???Medication ???Instructions ???Recorded ???Confirmed ???Type levothyroxine 25 mcg tablet 25 mcg PO DAILY 02/11/14 01/25/25 History divalproex 500 mg tablet,delayed 500 mg PO QHS 06/17/18 01/25/25 Hi story release (Depakote) Have you fallen in the past year?: Yes [facility] Medical History Hx of psychiatric hospitalization History [...] not use (more content not included)... Normal [facility] Chest PA and Lateralon 01-19 Chest PA and Lateral [facility] Imaging Services [address] [place], [place] [address] Chest PA and Lateral MR#: [id number] Acct: [id number] Name: RICARDA OLIVA Rep #: [id number] : 1950 F 74 From: Sam Hyde PCP: Dr. Libby Luque MD Status: REG CLI Study: Chest PA and Lateral Date of Exam: 01/19/25 Exam# [id number] Ordering Dr: Brooke Camacho NP RETIREMENT ASSISTANT-C PROCEDURE: CHEST PA AND LATERAL 01/19/2025 REASON [...] acute osseous change is seen. Reading Location: [address] CC: RETIREMENT ASSISTANT-C Brooke Camacho; Dr. Libby Luque MD Comic Illustrator: Signed Normal [facility] Urine Cultureon 10-02-2024 [facility] Culture exhibits no growth. Normal [facility] Comment on above: Performed By: #### M 100.2200 #### [facility] [address] [facility] [place], [address] CBC (INCLUDES DIFF/PLT)on Basophils (Bld) [#/Vol] 0.062 10*3/uL Normal 0-200 [facility] Comment on above: Performed By: #### 9 1006, 1876 #### [facility] [address] [place] [address], [address] [place] [address] Monogram And Letter Paster: Ken Barcenas MD Basophils/100 WBC (Bld) 1.1 % Normal [facility] Comment on above: Performed By: #### 9 1305, 6399 #### [facility] of [address], [address] [place] [address] Monogram And Letter Paster: Ken Barcenas MD Eosinophils (Bld) [#/Vol] 0.202 10*3/uL Normal 15-500 [facility] Comment on above: Performed By: #### 9 5, 6399 #### [facility] of [address], [address] [place] [address] Monogram And Letter Paster: Ken Barcenas MD Eosinophils/100 WBC (Bld) 3.6 % Normal [facility] Comment on above: Performed By: #### 9 2664, 6399 #### [facility] of [place] [address] Monogram And Letter Paster: Ken Barcenas MD Erythrocyte distribution width (RBC) [Ratio] 13.1 % Normal 11.0-15.0 [facility] Comment on above: Performed By: #### 9 840, 6399 #### [facility] of [address], [address] [place] [address] Monogram And Letter Paster: Ken Barcenas MD Hematocrit (Bld) [Volume fraction] 36.6 % Normal 35.0-45.0 [facility] Comment on above: Performed By: #### 9 948, 6399 #### [facility] of [address], [address] [place] [address] Monogram And Letter Paster: Ken Barcenas MD Hemoglobin (Bld) [Mass/Vol] 12.3 g/dL Normal 11.7-15.5 [facility] Comment on above: Performed By: #### 9 2664, 6399 #### [facility] of [address], [address] [place] [address] Monogram And Letter Paster: Ken Barcenas MD Lymphocytes (Bld) [#/Vol] 2.106 10*3/uL Normal 850-3900 [facility] Comment on above: Performed By: #### 9 945, 6399 #### [facility] of [address], [address] [place] [address] Monogram And Letter Paster: Ken Barcenas MD Lymphocytes/100 WBC (Bld) 37.6 % Normal [facility] Comment on above: Performed By: #### 9 879, 6399 #### [facility] [place] [address] Monogram And Letter Paster: Ken Barcenas MD MCH (RBC) [Entitic mass] 33.0 pg Normal 27.0-33.0 [facility] Comment on above: Performed By: #### 9 420, 6399 #### [facility] [place] [address] Monogram And Letter Paster: Ken Barcenas MD MCHC (RBC) [Mass/Vol] 33.6 [...] patient's clinical condition. Performed By: #### 9 196, 6399 #### [facility] [place] [address] Monogram And Letter Paster: Ken Barcenas MD MCV (RBC) [Entitic vol] 98.1 fL Normal 80.0-100.0 [facility] Comment on above: Performed By: #### 9 233, 6399 #### [facility] [place] [address] Monogram And Letter Paster: Ken Barcenas MD Monocytes (Bld) [#/Vol] 0.549 10*3/uL Normal 200-950 [facility] Comment on above: Performed By: #### 9 630, 6399 #### [facility] [place] [address] Monogram And Letter Paster: Ken Barcenas MD Monocytes/100 WBC (Bld) 9.8 % Normal [facility] Comment on above: Performed By: #### 9 776, 6399 #### [facility] of [address], [address] [place] [address] Monogram And Letter Paster: Ken Barcenas MD Neutrophils (Bld) [#/Vol] 2.682 10*3/uL Normal 4231-7429 [facility] Comment on above: Performed By: #### 9 2665, 6399 #### [facility] of [address], [address] [place] [address] Monogram And Letter Paster: Ken Barcenas MD Neutrophils/100 WBC (Bld) 47.9 % Normal [facility] Comment on above: Performed By: #### 9 2664, 6399 #### [facility] of [address], [address] [place] [address] Monogram And Letter Paster: Ken Barcenas MD Platelet mean volume (Bld) [Entitic vol] 11.1 fL Normal 7.5-12.5 [facility] Comment on above: Performed By: #### 9 515, 6399 #### [facility] of [address], [address] [place] [address] Monogram And Letter Paster: Ken Barcenas MD Platelets (Bld) [#/Vol] 270 10*3/uL Normal 140-400 [facility] Comment on above: Performed By: #### 9 2665, 6399 #### [facility] of [address], [address] [place] [address] Monogram And Letter Paster: Ken Barcenas MD RBC (Bld) [#/Vol] 3.73 10*6/uL Low 3.80-5.10 [facility] Comment on above: Performed By: #### 9 2665, 6399 #### [facility] of [address], [address] [place] [address] Monogram And Letter Paster: Ken Barcenas MD WBC (Bld) [#/Vol] 5.6 10*3/uL Normal 3.8-10.8 [facility] Comment on above: Performed By: #### 9 542, 6399 #### [facility] of [address], [address] [place] [address] Monogram And Letter Paster: Ken Barcenas MD COMPREHENSIVE METABOLIC PANE L W/ANION GAPon 09-16-2024 Albumin [Mass/Vol] 4.0 g/dL Normal 3.6-5.1 [facility] Comment on above: Performed By: #### 9 214, 6399 #### [facility] of [address], [address] [place] [address] Monogram And Letter Paster: Ken Barcenas MD ALP [Catalytic activity/Vol] 48 U/L Normal 37-153 [facility] Comment on above: Performed By: #### 9 2664, 6399 #### [facility] of [address], [address] [place] [address] Monogram And Letter Paster: Ken Barcenas MD ALT [Catalytic activity/Vol] 22 U/L Normal 6-29 [facility] Comment on above: Performed By: #### 9 475, 6399 #### [facility] of [place] [address] Monogram And Letter Paster: Ken Barcenas MD AST [Catalytic activity/Vol] 22 U/L Normal 10-35 [facility] Comment on above: Performed By: #### 9 684, 6399 #### [facility] of [place] [address] Monogram And Letter Paster: Ken Barcenas MD Bilirubin [Mass/Vol] 0.5 mg/dL Normal 0.2-1.2 [facility] Comment on above: Performed By: #### 9 746, 6399 #### [facility] of [place] [address] Monogram And Letter Paster: Ken Barcenas MD Calcium [Mass/Vol] 9.1 mg/dL Normal 8.6-10.4 [facility] Comment on above: Performed By: #### 9 009, 6399 #### [facility] of [place] [address] Monogram And Letter Paster: Ken Barcenas MD Chloride [Moles/Vol] 103 mmol/L Normal 98-110 [facility] Comment on above: Performed By: #### 9 106, 6399 #### [facility] of [address], [address] [place] [address] Monogram And Letter Paster: Ken Barcenas MD CO2 [Moles/Vol] 29 mmol/L Normal 20-32 [facility] Comment on above: Performed By: #### 9 846, 6399 #### [facility] of [address], [address] [place] [address] Monogram And Letter Paster: Ken Barcenas MD Creatinine [Mass/Vol] 0.91 mg/dL Normal 0.60-1.[address] [facility] Comment on above: Performed By: #### 9 2664, 6399 #### [facility] of [place] [address] Monogram And Letter Paster: Ken Barcenas MD ELECTROLYTE BALANCE 7 mmol/L (calc) Normal 7-17 [facility] Comment on above: Performed By: #### 9 731, 6399 #### [facility] of [place] [address] Monogram And Letter Paster: Ken Barcenas MD GFR/1.73 sq M.predicted among non-blacks MDRD (S/P/Bld) [Vol rate/Area] 67 mL/min/{1.73_m2} Normal > OR = 60 [facility] Comment on above: Performed By: #### 9 612, 6399 #### [facility] of [place] [address] Monogram And Letter Paster: Ken Barcenas MD Glucose [Mass/Vol] 86 mg/dL Normal 65-99 [facility] Comment on above: Result Comment: Fasting reference interval Performed By: #### 9 272, 6399 #### [facility] of [place] [address] Monogram And Letter Paster: Ken Barcenas MD Potassium [Moles/Vol] 4.8 mmol/L Normal 3.5-5.[address] [facility] Comment on above: Performed By: #### 9 395, 6399 #### [facility] of [address] [place] [address] Monogram And Letter Paster: Ken Barcenas MD Protein [Mass/Vol] 6.5 g/dL Normal 6.1-8.1 [facility] Comment on above: Performed By: #### 9 2665, 6399 #### [facility] of [address], [address] [place] [address] Monogram And Letter Paster: Ken Barcenas MD Sodium [Moles/Vol] 139 mmol/L Normal 135-146 [facility] Comment on above: Performed By: #### 9 2665, 6399 #### [facility] of [address], [address] [place] [address] Monogram And Letter Paster: Ken Barcenas MD Urea nitrogen [Mass/Vol] 20 mg/dL Normal 7-25 [facility] Comment on above: Performed By: #### 9 2665, 6399 #### [facility] of [address], [address] [place] [address] Monogram And Letter Paster: Ken Barcenas MD VALPROIC ACIDon 09-16-2024 VALPROIC ACID 65.3 mg/L Normal 50.0-100.0 [facility] Comment on above: Performed By: #### 9 2665, 6399 #### [facility] of [address], [address] [place] [address] Monogram And Letter Paster: Ken Barcenas MD Pulmonary Visit Reporton Pulmonary Visit Report [facility] Pulmonary Medicine of [address] [place] [address] OFFICE VISIT Date of Service: 09/02/24 MR#: [id number] Acct: [id number] Name: PJRICARDA Rep #: [id number] : 1950 Provider: TENNILLE Camacho Age/Sex: 74/F Location: [facility].PMW Status: Signed Assessment and Plan Assessment and Plan (1) FCO (obstructive sleep apnea): Status: Chronic Plan: Stable, she is using and benefiting from Pap therapy. No indication for titration study at this time. Contact the office for any new or worsening symptoms in the meantime. Follow-up in April. (2) Nicotine dependence, cigarettes, in remission: Status: Chronic Comment: Greater than 21-gdqv-whtu smoking history quit in November 2013 Plan: [...] November 2013. She does have greater than 59-qxsp-jlhy smoking history. She denies any difficulty with [...] you fallen in the past year?: No PFS Medical History Hx of psychiatric hospitalization History [...] conjunctiva; N (more content not included)... Normal [facility] Urine Cultureon 07-25-2024 [facility] Presumptive E. coli [place] Count 80,000-100,000 Presumptive E. coli: REACTION Ampicillin [...] TMP SMX Islt COLIN <=20 S Normal [facility] Comment on above: Performed By: #### M 100.2200 #### [facility] [address] [facility] [place], [place], [address] HIP, UNI W/ Pelvis 2-3 Views on 04-06-2024 HIP, UNI W/ Pelvis 2-3 Views [facility] Imaging Services [address] [place], [place] [id number] HIP, UNI W/ Pelvis 2-3 Views MR#: [id number] Acct: [id number] Name: RICARDA OLIVA Rep #: [id number] : 1950 F 73 From: Vick tesfaye MD PCP: Dr. Libby Luque MD Status: [facility] Study: HIP, UNI W/ Pelvis 2-3 Views Date of Exam: Exam# [id number] Ordering Dr: Libby Luque MD [id number] STUDY: X-RAY - PELVIS AND LEFT HIP [...] EDT , CC: Dr. Libby Luque MD Comic Illustrator: Signed Normal [facility] Shoulder min 2 Viewson 04-06 Shoulder min 2 Views [facility] Imaging Services [address] [place] [address] [id number] Shoulder min 2 Views MR#: [id number] Acct: [id number] Name: RICARDA OLIVA Rep #: [id number] : 1950 F 73 From: Francisco Madden MD PCP: Dr. Libby Luque MD Status: REG CLI Study: Shoulder min 2 Views Date of Exam: 04/06/24 Exam# [id number] Ordering Dr: Libby Luque MD [id number] EXAM: XR RIGHT SHOULDER COMPLETE, 2 OR [...] MD at 17:04 EDT , CC: Dr. Libby Luque MD Comic Illustrator: Signed Normal [facility] Low Dose CT Lung Screeningon 04-02-[address] Lung Screening [facility] Imaging Services [address] [place] [address] Lung Screening MR#: [id number] Acct: [id number] Name: RICARDA OLIVA Rep #: [id number] : 1950 F 73 From: Eliu morfin DO PCP: Dr. Libby Luque MD Status: REG CLI Study: Low Dose CT Lung Screening Date of Exam: 04/02 Exam# [id number] Ordering Dr: David Talavera DO [id number] EXAM: CT CHEST, LUNG CANCER SCREENING WITHOUT [...] David Talavera DO; Dr. Libby Luque MD Comic Illustrator: Signed Normal [facility] CBC AND DIFFERENTIALon 02-26 % AUTOMATED IMMATURE GRAN 0.2 % Normal 0.0 - 0.9 [facility] Comment on above: Result Comment: Edith ture Granulocyte Count (IG) includes promyelocytes, myelocytes and metamyelocytes but does not include bands. Percent differential counts (%) should be interpreted in the context of the absolute cell counts (cells/L). Performed By: #### C BCDF #### [address] [address] Basophils (Bld) [#/Vol] 0.05 10*3/uL Normal 0.00 - 0.10 [facility] Comment on above: Performed By: #### C BCDF #### [address] [address] Basophils/100 WBC (Bld) 1.1 % Normal 0.0 - 2.0 [facility] Comment on above: Performed By: #### C BCDF #### [address] [address] Eosinophils (Bld) [#/Vol] 0.29 10*3/uL Normal 0.00 - 0.40 [facility] Comment on above: Performed By: #### C BCDF #### [address] [address] Eosinophils/100 WBC (Bld) 6.1 % Normal 0.0 - 6.0 [facility] Comment on above: Performed By: #### C BCDF #### [address] [address] Erythrocyte distribution width (RBC) [Ratio] 14.9 % High 11.5 - 14.5 [facility] Comment on above: Performed By: #### C BCDF #### [address] [address] Hematocrit (Bld) [Volume fraction] 39.3 % Normal 36.0 - 46.0 [facility] Comment on above: Performed By: #### C BCDF #### [address] [address] Hemoglobin (Bld) [Mass/Vol] 12.4 g/dL Normal 12.0 - 16.0 [facility] Comment on above: Performed By: #### C BCDF #### [address] [address] Lymphocytes (Bld) [#/Vol] 1.73 10*3/uL Normal 0.80 - 3.00 [facility] Comment on above: Performed By: #### C BCDF #### [address] [address] Lymphocytes/100 WBC (Bld) 36.7 % Normal 13.0 - 44.0 [facility] Comment on above: Performed By: #### C BCDF #### [address] [address] MCHC (RBC) [Mass/Vol] 31.6 g/dL Low 32.0 - 36.0 [facility] Comment on above: Performed By: #### C BCDF #### [address] [address] MCV (RBC) [Entitic vol] 96 fL Normal 80 - 100 [facility] Comment on above: Performed By: #### C BCDF #### [address] [address] Monocytes (Bld) [#/Vol] 0.46 10*3/uL Normal 0.05 - 0.80 [facility] Comment on above: Performed By: #### C BCDF #### [address] [address] Monocytes/100 WBC (Bld) 9.7 % Normal 2.0 - 10.0 [facility] Comment on above: Performed By: #### C BCDF #### [address] [address] Neutrophils (Bld) [#/Vol] 2.18 10*3/uL Normal 1.60 - 5.50 [facility] Comment on above: Result Comment: Perc ent differential counts (%) should be interpreted in the context of the absolute cell counts (cells/L). Performed By: #### C BCDF #### [address] [address] Neutrophils/100 WBC (Bld) 46.2 % Normal 40.0 - 80.0 [facility] Comment on above: Performed By: #### C BCDF #### [address] [address] Platelets (Bld) [#/Vol] 288 10*3/uL Normal 150 - 450 [facility] Comment on above: Performed By: #### C BCDF #### [address] [address] RBC 4.08 x10E12/L Normal 4.00 - 5.20 [facility] Comment on above: Performed By: #### C BCDF #### [address] [address] WBC (Bld) [#/Vol] 4.7 10*3/uL Normal 4.4 - 11.3 [facility] Comment on above: Performed By: #### C BCDF #### [address] [address] COMPREHENSIVE PANELon 2022 Albumin [Mass/Vol] 4.0 g/dL Normal 3.4 - 5.0 [facility] Comment on above: Performed By: #### C MP #### [address] [address] ALP [Catalytic activity/Vol] 61 U/L Normal 33 - 136 [facility] Comment on above: Performed By: #### C MP #### [address] [address] ALT [Catalytic activity/Vol] 14 U/L Normal 7 - 45 [facility] Comment on above: Result Comment: Melida ents treated with Sulfasalazine may generate falsely decreased results for ALT. Performed By: #### C MP #### [address] [address] Anion gap [Moles/Vol] 9 mmol/L Low 10 - 20 [facility] Comment on above: Performed By: #### C MP #### [address] [address] AST [Catalytic activity/Vol] 15 U/L Normal 9 - 39 [facility] Comment on above: Performed By: #### C MP #### [address] [address] Bilirubin [Mass/Vol] 0.5 mg/dL Normal 0.0 - 1.2 [facility] Comment on above: Performed By: #### C MP #### [address] [address] Calcium [Mass/Vol] 9.2 mg/dL Normal 8.6 - 10.3 [facility] Comment on above: Performed By: #### C MP #### [address] [address] Chloride [Moles/Vol] 105 mmol/L Normal 98 - 107 [facility] Comment on above: Performed By: #### C MP #### [address] [address] Creatinine [Mass/Vol] 1.00 mg/dL Normal 0.50 - 1.05 [facility] Comment on above: Performed By: #### C MP #### [address] [address] GFR/1.73 sq M.predicted among non-blacks MDRD (S/P/Bld) [Vol rate/Area] 60 mL/min/{1.73_m2} Normal >90 [facility] Comment on above: Result Comment: CALC ULATIONS OF ESTIMATED GFR ARE PERFORMED USING THE 2020 CKD-EPI STUDY REFIT EQUATION WITHOUT THE RACE VARIABLE FOR THE IDMS-TRACEABLE CREATININE METHODS. https://jasn.asnjournals.org/content/early/ASN.960578 7354 Performed By: #### C MP #### [address] [address] Glucose [Mass/Vol] 85 mg/dL Normal 74 - 99 [facility] Comment on above: Performed By: #### C MP #### [address] [address] HCO3 (Bld) [Moles/Vol] 30 mmol/L Normal 21 - 32 [facility] Comment on above: Performed By: #### C MP #### [address] [address] Potassium [Moles/Vol] 4.6 mmol/L Normal 3.5 - 5.3 [facility] Comment on above: Performed By: #### C MP #### [address] [address] Protein [Mass/Vol] 6.7 g/dL Normal 6.4 - 8.2 [facility] Comment on above: Performed By: #### C MP #### [address] [address] Sodium [Moles/Vol] 139 mmol/L Normal 136 - 145 [facility] Comment on above: Performed By: #### C MP #### [address] [address] Urea nitrogen [Mass/Vol] 25 mg/dL High 6 - 23 [facility] Comment on above: Performed By: #### C MP #### [address] [place] [address] VALPROIC ACIDon 02-26-2023 VALPROIC ACID 72 ug/mL Normal 50 - 100 [facility] Comment on above: Performed By: #### V ALPR #### [address] [address] 36on 12-19-2022 36 Patient does not nee d lab order or CT anymore. Cancelling Normal [facility] 36 Reason for Call: Cynthia oswald is scheduled for CT Chest with contrast on 01/07/23. Patient will need creatinine lab done prior to CT. Please place order accordingly. If you have any questions please call Central Scheduling at [phone]. Thank you Normal [facility] Office Visiton 09-12-2022 Follow-up visit [id number] Yuliya Oliva 1950 F Date Provider Department Center 09/12/2022 [id number]-KMNSZPINOCENTE DERAS [facility] None Family History Problem Relation Age of Onset Diabetes Maternal Grandmother Cancer Mother Hypertension Maternal Grandmother Diabetes Mother Family Status - Relation Status Age at Maternal Grandmother Mother Level of Service:865[address] [place] POSTOP FOLLOW UP VISIT RELATED TO ORIGINAL PX Reason for Visit and Comments: Post-op [483] Normal [facility] Progress Noteon 09-12-[address] [facility]: CT [facility]GE[facility] [address] [place] [address] [address] [facility] [address] Dept: [phone] Dept Loc: [phone] Visit type: Established patient Reason for Visit: [...] CHRONIC INFLAMMATION AND FIBRIN DEPOSITION Inocente Deras, TRAVEL RN OR - SCHOOL INSPECTOR [facility] Progress Note S/p Right minithoracotomy pulmonary decortication [...] -Path discussed briefly; final path per surgeon [facility] 36on 09-09-2022 36 Case reviewed. Refill sent. Please notify patient. Myranda Feliciano, TRAVEL RN OR - SCHOOL INSPECTOR 09/09/22 [facility] 36 Pt states she is sti ll having post op pain. Educated her on post op pain management listed below. She states she takes 1000mg Tylenol TID and only uses the Oxycodone for increased pain at night. Pt is requesting a refill of Oxycodone sent to [facility] in [place]. Please advise. Right minithoracotomy pulmonary decortication visceral [...] for at least 20 minutes before reapplying. [facility] 36 Patient is calling i n and waking for a refill on the Oxycodone medication. Please call her back. [facility] [place]. Thank you. [place] [address]on 09-03-2022 36 Spoke with patient. States she [...] if swelling does not improve. Myranda Feliciano, TRAVEL RN OR - SCHOOL INSPECTOR 09/03/22 [facility] 36 Patient had a VATS o n 08/23/22 Patient calling in and states she has some leg swelling in both and asking what she needs to do Please advise [facility] 36 Error [place] [address]on 09-01-2022 36 Spoke with patient a nd [...] any other questions or concerns. Hussein White, TRAVEL RN OR - SCHOOL INSPECTOR 09/01/22 [facility] 36 Name of caller requesting page:Ricarda Phone Number of caller: [phone] Facility requesting page: Patient Reason for Page: Severe pain, SOB. Surgery 08/23 for Right thoracotomy, decortication, and pleurodesis. Provider paged: [facility] Name of paged provider: [facility] Page Placed to #: On-Call Finder Time Page was sent or provider contacted: 10:10 AM Page Content: Pt Dylon Oliva 1950 states she had SX 08/23 for right thoracotomy, decortication, and pleurodesis. Pt c/o severe pain in Right Lung area and SOB. Pt can be reached at [phone] Please advise [facility] 36on 08-27-2022 36 Pt states she had on e occurrence of blood tinged phlegm. Pt denies any other symptoms. Advised pt to call office if there are anymore occurrences or if she develops any symptoms. Also advised her to go to ED if she develops severe symptoms. Pt verbalizes understanding. [facility] 36 Patient was released from the hospital yesterday. She has been having coughing spells with phlegm and darker colored blood coming up. Please return her call to [phone]. Thank you. [facility] [id number] 08-26-2022 [id number] Pt declining home ca re services. [facility] CARECOORDon 08-26-2022 [facility] Care Managment Initi al Assessment Date: 08/26/2022 Patient Name: Ricarda Oliva : 1950 Patient Information Source of Information: Patient Cognition/Language: WFL - Within Functional Limits Permission given to speak with patient corporate representative/caregiver as indicated: Confirmation of Payer with patient/family: Yes Payer Name: Medicare [place]: No Confirmation of Primary Care Physician: Confirmed [...] Prescription Coverage: Yes Pharmacy Used: [facility], [place] Medication Management: Independent Transportation/Shopping: Independent Transportation Mode: [...] today if medically stable. Madhuri Salcedo RN [facility] No Panel InformationOrdered By: Jose Luis Arrington on 08-26-2022 Case Report Surgical Pathology C ase: [id number] Authorizing Provider: Sagar Hendrickson MD Collected: 08/23/2022 0754 Ordering Location: [facility] Received: 08/23/2022 1208 Pathologist: Jose Luis Arrington Jr., MD Specimen: Pleural Cavity, Right, RIGHT LUNG VISCERAL PLEURA [employer] Phone: Clinical Information k5mjyGWdVAGheHPrNCM wMlxh cnIpRUWogEXhF1VdnuhyCSck PH8tUO6xmKylhTQqsTIiUSXi TiSce7avh874qKDjo9otHLKX XYdlQWQSLSs7oSitR04hi2H4 BvaaD6lrHZEmPAtmZRIfBPcm qVWaINr4LMVlcSIbkhSrFgJf FSDlvGFftSR9QUXiGM1sqtkk GZswCKmxYVEiskI9YGEolJZb R8RoXIMuBE1elneyTTF2AVea WUNdDYB6YbKjOTIjn1Ysaoo6 HsWdtJHhIXmmnWBffVzleN2t ZnMyMFxjZjEgUGxldXJhbCBl HcA4e6fhmqbnqw25CNKun1D3 lHPgMFQvaCFsl6awcMQbRNkO OTBdXHBhcn0= [employer] Phone: Disclaimer i2cmxMIrXBYmoVHkOqAn MDAw LPXii8oxREFsdDFoUlMuEmCy JjAtVbndpQJaFWOhPhCka8yd b112rKObb4ppQWQbDsC3lODr ZJDgA80pCDKWN133OSYpSDcm j7lkc2RpNQEuxDDcm6U8MVKJ UWqjRWBZMQt2fXduK00tu3K1 RckvJ0maHTBlNFFvP2HrPE5x RRJnYrt6JGU8BNY6OENkYQTp S3RqHF5mKYDpvIJqIUr5h0hu yQxtEYPdCXU5o9gcQTshcwNh JT2epo5eoKs5s5twzkXhMVKd RTImgFJVUZYnT5HmqPavWn1h lKc1wFmeLyeiBIO8Tpf9FI7j kj20rgk4wJpsONMquornObD9 GHzkAYSgerqtFPk2LKegESTt yAN5EDTdiHUhV0WdCFJjPP1w upe6CET1GYjuHNTrEtI3PCTl vKRuMNVrdIezDKroo760VDV8 WgWgYO9pE2Stg2C8lU8ggJTg UYAetORcJfSfQEVboy9tcOSo CZjsk0KcJDC3fcO3bDErgEYe MIBdYZ50Oxjie6TsEwrzSEA1 MPBbeuRdx2Cqm7kxXwSsnfTi Q3ceB4CyLJJpPLEaWBLlQfXr dzFzs3Ueo7LuuBRgqNe2t2rt ZXNjQEHcnZhhb7wbDPA1QROx Z3W8zFNxh7ixCAbfDSXamNY1 sfX4XPYrcQSyO7YfaZ1lRHYq AX3vcxp7m8ueFRK9UDrdJPPe NfO4avZ4QOJxxRHpZIFfnOef IZcof577CKQ6BbDjDSAxf8Rb F3GljUynT74hzStcU15zPTRr sVefcN9hrXfthR3wNtVrQmCu NFxxbFxwbGFpblxmMVxmczE2 MWsjkfboKAKiQCjfI5sjIcUx RYUllYmmFWkyo9GyVESlZNLn PBVaVEdxL4tifH0qnddwTQzn DHWctOlhp7wmYlXjjKQ8YO9f pyVkRXRazJwdznI5lbMywVfl aF3geN5hmAorfP9vvUUzsIP9 cnksIGluIHNpdHUgaHlicmlk bRcefBihvospbC4mGKM0hDUt TGT9oHXfJUHvDEKyOLFveV07 ci2ybLYpgiYgU7WqQ7ZtgHLz aMgsWw0iMLItjbgrMRUbAVzz DPIcZDTcAbJmfaYhg4EulZ0g FZBzOJHmIL59blFfzyW3rMFm YWJvdmUgdGVzdHMgaXMgcmVn dWxhdGVkIGFzIGFuIGFuYWx5 mJKjn7EzJ9pquCGrptVtJ6Eu uFIoWVOXZF3tEYgdz2AaqRNa vQNql4DeJLSmFFDnpR1aTNSx IB5xXXUuIGyeMZZizpEfci9d hsMiIBDdKOXtY4NwzrzcfYio caFoGAEotr2lpwVnWSY4YIOk ZSBjbGluaWNhbCBsYWJvcmF0 k2AiGFKfl6AqO7MpyOIeAVNa jNBiJZO8m3YxsP7vPRdbnZHn URJrHU2bhXRnCPJrFCUyYAKg HUVyNmuytGrkNFSASHGcj8Qt OP5zMQDxvKgzRFMnrX0pb5Ti ZBOrq08eNTFRJLmrVQEfIRBU REEgaGFzIGRldGVybWluZWQg cUjenQUneSUqKSUnLSHvOK4b NWCwpuSniMShc9VwsXGwbvRx h8AhtfOfSDZpUIJ8ZnQguWCa NFNkekRNiVewmTkbBOItp7Xr YQzftCEnc2A4CIjqleF5GRIo CGGtadDemr2fSGAqqrByEQDc WtLkmqLswWQuBDQfJLY1iLOe dWUuIEFwcHJvcHJpYXRlIHBv t0y8jWRvBAVgJKZwHFttiCe5 MFMgw739gu1pckFdz5yvrcIi EFOniKjsMQSzRNnhm0VlUPFq eW1nxN1miOVyNEvaKQoad7f1 cEI1vINfvQO9wARoaJxhTLRi UCPiyVJvMgN2eOUgZQIft220 vi7tfiUpzV83VGSnPFtfFKU5 MPOmw9FpvG3cbxqdoBB7dEIp ynaqv3q4pYZmO8UdmANpZfji TYouiGWax8d6bGKuPsUmuDNk wqcxVm0eHFWyAQtjBPSbKIGx MTZcbGFuZzEwMzNcaGljaFxm LWquJjAgQSOaJMriT5gyThOw MtNbPrd6RSKySVpoMXBzqHyl oB2wYqOnVdPfSodfDF4nVOGh K9hcsLSlPIAeEOWnN6ivVuIc gV6gxHpdKErmubE9LKbwbBEh x8scz3QqH0xjtRumFRivTMEm KOvrGBkihsGqdw62WFXlAG4c gqMyiMUyeZXnRU2bCFQlO1Lv R1zqgYJzDPEab5Q5XHScZQqb wVVgddbmSKvhqjM0DGqawnsc JWCuZVqbE6qoJyNuYGAejHzq LNrtf0EfBPAlRAWeELWnjRR3 ZHFvI4IyGGWaIAqbHCJgEARz MTZcbGFuZzEwMzNcaGljaFxm ENnkTvByKTEbKEoiK9kgBvMt BbPuKpBLVDX0tXDfLEPyh3Ix ZCBiZSBpbnRlcnByZXRlZCB3 tCZbDXVxqNBjd94xP7r5QA2w wGiaFUYngLVjFRRdh2KulCXp dKz0gVRtBoBrUHcqCMRsBFwb hBi4cLN4HX4fPIRlD2QuT7fs kAYiNMEyFIPueEGqzq4qaFnz cH6qKdDhCaElBvzsWH2fRRMu E1hweMFhWMXeJBVqK2exUuIe pI3ftHpjQHzatjEhTRCzam2= [employer] Phone: Gross Description a5rmgKJkHBJthRGhRZLr Mlxh vqPiYNJfjNDqJ0YnchztRFom DC1fRV2qsSmvkMXudWTzAJJy QrGxi9tuu716kRPcq1qgZNRS NIciMJQDCSt7dIaxZ98ff4K5 LrgzX93hhQFcKWY2VAUpQNWj kQPtMZMdUUA9EDGxtFUzQ6nt GLRyGM7mhovcHKlrDAthHIOw gJX4OJVagGCvO1PbRGIgAYiq BAKfeer4ZlFzFn9xtTAgoZrc MFxwYXJkXHBsYWluXGZzMjAg NuIzFEx6RQTacP6vZi6ysZQp wU5brUUdBArzIAAdkrmnyLSw bFNpNkC8vQAhNUSydMHhxBH9 gsBtIAUyEZBfuzFcX3PiIAPl MsDmF93jmvItRW6aWLAjgCpt xLu4KE8ywRNjES1mtKVtdTbh L5bbe8tzgUTdF8GcsTR2oZId bFFvUJhjioDpIJXusrpvpH6j QBH5OFDyiOUwAifeJ45mHYJG cHDos5ZjOtTqQSLvGSOaBGrx e6DwkJdysS6dAR1lhjqrSsgh QxDgXb9oZ0QbI9vomWRqwZrl djMtFFUpFCykXK51sJKrPWDg MYYDGRQhPHZnhxIsyXv1ZPDl VFM9uV9yvpGjuhUkh1AcgDy3 mWDyIOlyPTY1zbWyIVCoCNF5 ZXMuIFxwYXJ9 [employer] Phone: Pathologist Interpretation Location [facility], [address] [place] [address], [place] [id number], CLIA: [id number]; Joint Commission: [id number] [id number]; CAP: [id number] [employer] Phone: Pathology report final diagnosis Narrative g6cscICuVTSteTHnFXKkQnjv htZsVMWaaIGtW1JohndvJGnv RV1oEI7iqIskxIVhvSDdJKQl RfGec2qjc804rUJxn7nmUPIG TGnvSUTXHWx7dPcdW41yv7N2 QosnX61ahQTdQSO0TZUhBRDz aSQvPMClJMQ5XYHlfXMcG8ga ESVuSV9sddjfIIsqJCkdUAYq lFR7RITjeRBpS3YoRJKeSAzv LWSsmuy3XxCcGq0geWYsyLei MFxwYXJkXHBsYWluXGZzMjAg UdLIB5mVHTmLJfdtNrkNS7RZ FIfjRYtXTPWIXhmoooIao4kn MVFXT6QpVCgPNVlTLtngBGLh MdfLSm6WEsDWSYLWZGByQHDU BVONTWvJPGIpB4bQZMQYKZLI UiQVWEIZIOIGIRfdT8sVTAES YNKKNldQGEeVDrkTBS5TBFtU XiIERsGgZdlAFufUOXZAPK8X LDNZU25drDCicW== [employer] Phone: [employer] Phone: Nursing Noteon 08-26-2022 Nursing Note Pt. Alert and orient ed. PIV's have been removed. monitor technician has been removed. AVS printed, reviewed, and given to patient. All questions and concerns have been addressed. Pt. Left unit ambulatory. Medications will be picked up from pharmacy. All belongings were given to patient. Normal [facility] Progress Noteon 08-26-2022 Progress Note Right thoracic carrie drain removed without issue Normal [facility] Progress Note ---- -------- Attestation signed by Sagar Hendrickson MD at 08/26/2022 2:26 PM I independently saw and evaluated the patient - including reviewing the labs, imaging studies, and available documentation. I agree with the findings and plan of care as documented by the resident/SENIOR SOFTWARE MANAGER/RETIREMENT ASSISTANT/PA, unless otherwise noted. Please do not hesitate [...] Discussed follow up for stitch removal Normal [facility] Progress Note Chest tube canister appears to [...] it is simply an educated guess. Normal [facility] XR Chest Single viewon 08-26 1. Right-sided chest tube. 2. No pneumothorax. 3. Stable subcutaneous air about the right chest and neck. Report Dictated on Electronically Signed By: Sunday Ralph Electronically Signed Date/Time: 08/26/2022 12:48 AM [facility] [employer] Patient Name: RICARDA OLIVA Exam Date/Time: [...] and neck. The left lung is clear. [facility] Sunday Ralph MD - 08/26/2022 Patient [...] Signed Date/Time: 08/26/2022 12:48 AM EST [facility] Radiology Study observation (narrative) [facility] Progress Noteon 08-25-2022 Progress Note Nutrition rescreen completed. Chart reviewed. Patient to be monitored and followed by the diet semiconductor technician. Normal [facility] XR Chest Single viewon 08-25 [...] is clear. The heart size is normal. [facility] RADIOLOGY SYSTEM Sunday Ralph MD - 08/25/2022 [id number] Exam Date/Time: 08/25/2022 00:45 Procedure: XR CHEST [...] Electronically Signed Date/Time: 08/25/2022 12:57 AM EST [employer] Radiology Study observation (narrative) [facility] XR Chest Single viewOrdered By: Sunday Ralph on 08-25-2022 [employer] Work Phone: Basic metabolic 1998 panelon 08-24-2022 Anion gap [Moles/Vol] 9 mmol/L 3 - 13 mmol/L [employer] Calcium [Mass/Vol] 8.7 mg/dL 8.4 - 10. 4 mg/dL [employer] Chloride [Moles/Vol] 99 mmol/L 98 - 10 7 mmol/L [employer] CO2 [Moles/Vol] 24 mmol/L 22 - 30 mmol/L [employer] Creatinine [Mass/Vol] 1.03 mg/dL 0.52 - 1.04 mg/dL [employer] GFR/1.73 sq M.predicted MDRD (S/P/Bld) [Vol rate/Area] 58.3 mL/min/{1.73_m2} Low - PINF [facility] Comment on above: Calculation based on the Chronic Kidney Disease Epidemiology Collaboration (CKD-EPI) equation refit without adjustment for race Glucose [Mass/Vol] 132 mg/dL High 70 - 100 mg/dL [facility] Interpretation and review of laboratory results Abnormal [facility] Potassium [Moles/Vol] 4.9 mmol/L 3.5 - 5.1 mmol/L [facility] Sodium [Moles/Vol] 132 mmol/L Low 135 - 145 mmol/L [facility] Urea nitrogen [Mass/Vol] 33 mg/dL High 7 - 17 mg/dL [facility] Basic metabolic 1998 panelOr dered By: Sam Sousa on 08-24-2022 Anion gap [Moles/Vol] 6 mmol/L 3 - 13 mmol/L [facility] Calcium [Mass/Vol] 9.0 mg/dL 8.4 - 10. 4 mg/dL [facility] Chloride [Moles/Vol] 103 mmol/L 98 - 10 7 mmol/L [facility] CO2 [Moles/Vol] 26 mmol/L 22 - 30 mmol/L [facility] Creatinine [Mass/Vol] 0.92 mg/dL 0.52 - 1.04 mg/dL [facility] GFR/1.73 sq M.predicted MDRD (S/P/Bld) [Vol rate/Area] 66.7 mL/min/{1.73_m2} - PINF [facility] Comment on above: Calculation based on the Chronic Kidney Disease Epidemiology Collaboration (CKD-EPI) equation refit without adjustment for race Glucose [Mass/Vol] 121 mg/dL High 70 - 100 mg/dL [facility] Interpretation and review of laboratory results Abnormal [facility] Potassium [Moles/Vol] 5.9 mmol/L High 3.5 - 5.1 mmol/L [facility] Sodium [Moles/Vol] 135 mmol/L 135 - 145 mmol/L [facility] Urea nitrogen [Mass/Vol] 29 mg/dL High 7 - 17 mg/dL [facility] Moderately hemolyzed . Interpret with caution. Tests affected: Potassium, Glucose. [facility] CBC panel Auto (Bld)Ordered By: Renay Patterson on 08-24-2022 Erythrocyte distribution width (RBC) [Ratio] 14.0 % 11.5 - 14.5 % [facility] Hematocrit (Bld) [Volume fraction] 38.6 % 35.0 - 47.0 % [facility] Hemoglobin (Bld) [Mass/Vol] 12.8 g/dL 11.7 - 16.0 g/dL [facility] Interpretation and review of laboratory results Normal [facility] MCH (RBC) [Entitic mass] 31.6 pg 26.0 - 34.[address] [facility] MCHC (RBC) [Mass/Vol] 33.1 % 32.0 - 36.0 % [facility] MCV (RBC) [Entitic vol] 95.5 fL 80.0 - 98.[address] [facility] Platelet mean volume (Bld) [Entitic vol] 8.8 fL 7.4 - 12.[address] [facility] Platelets (Bld) [#/Vol] 317 10*3/uL 140 - 440 10*3/uL [facility] RBC (Bld) [#/Vol] 4.04 10*6/uL 3.8 - 5.20 10*6/uL [facility] WBC (Bld) [#/Vol] 10.6 10*3/uL 3.6 - 10.7 10*3/uL [facility] Progress Noteon 08-24-2022 Progress Note Physical Therapy Facility/Department: [facility] Physical Therapy Initial Evaluation NAME: Ricarda Oliva [...] who can assist. Anticipate return home with 24/7 supervision and home health PT. Performance Deficits/Impairments: [...] Independent Additional Comments: is available to assist / Objective Observation/Palpation Posture: Fair AROM RLE (degrees) [...] ROM, Corina (more content not included)... Normal [facility] XR CHEST 1 VIEWon 08-24-2022 XR CHEST 1 VIEW [id number] Ex[facility] Date/Time: 08/24/2022 05:33 Procedure: XR CHEST [...] Signed Date/Time: 08/24/2022 7:43 AM EST Normal [facility] XR Chest Single viewon 08-24 Patient Name: [...] Romero Electronically Signed Date/Time: 08/24/2022 7:43 AM [facility] Diana Romero MD - 08/24/2022 Patient [...] change. Report Dictated on Electronically Signed By: Daina Romero Electronically Signed Date/Time: 08/24/2022 7:43 AM EST [facility] [employer] [facility] view[facility]dered By: Diana Romero on 08-24-2022 [employer] Work Phone: [phone] 08-23-2022 [id number] Director Of Front Office following case for Discharge Needs. Normal [facility] ABO and Rh group Confirm Nom (Bld)on 08-23-2022 ABO group Nom (Bld) A [facility] D Ag Ql (RBC) Positive [facility] Basic metabolic 1998 panelon 08-23-2022 Anion gap [Moles/Vol] 9 mmol/L 3 - 13 mmol/L [facility] Calcium [Mass/Vol] 8.5 mg/dL 8.4 - 10. 4 mg/dL [facility] Chloride [Moles/Vol] 106 mmol/L 98 - 10 7 mmol/L [facility] CO2 [Moles/Vol] 26 mmol/L 22 - 30 mmol/L [facility] Creatinine [Mass/Vol] 0.85 mg/dL 0.52 - 1.04 mg/dL [facility] GFR/1.73 sq M.predicted MDRD (S/P/Bld) [Vol rate/Area] 73.4 mL/min/{1.73_m2} - PINF [facility] Comment on above: Calculation based on the Chronic Kidney Disease Epidemiology Collaboration (CKD-EPI) equation refit without adjustment for race Glucose [Mass/Vol] 126 mg/dL High 70 - 100 mg/dL [facility] Interpretation and review of laboratory results Abnormal [facility] Potassium [Moles/Vol] 4.5 mmol/L 3.5 - 5.1 mmol/L [facility] Sodium [Moles/Vol] 140 mmol/L 135 - 145 mmol/L [facility] Urea nitrogen [Mass/Vol] 32 mg/dL High 7 - 17 mg/dL [facility] Blood type and Crossmatch pa tracy (Bld)on 08-23-2022 ABO group Nom (Bld) A [facility] Blood group antibody screen GEL Ql Negative [facility] D Ag Ql (RBC) Positive [facility] CBC panel Auto (Bld)Ordered By: Mao Avalos on 08-23-2022 Erythrocyte distribution width (RBC) [Ratio] 14.2 % 11.5 - 14.5 % [facility] Hematocrit (Bld) [Volume fraction] 35.1 % 35.0 - 47.0 % [facility] Hemoglobin (Bld) [Mass/Vol] 11.9 g/dL 11.7 - 16.0 g/dL [facility] Interpretation and review of laboratory results Abnormal [facility] MCH (RBC) [Entitic mass] 32.7 pg 26.0 - 34.[address] [facility] MCHC (RBC) [Mass/Vol] 33.9 % 32.0 - 36.0 % [facility] MCV (RBC) [Entitic vol] 96.6 fL 80.0 - 98.[address] [facility] Platelet mean volume (Bld) [Entitic vol] 8.7 fL 7.4 - 12.[address] [facility] Platelets (Bld) [#/Vol] 225 10*3/uL 140 - 440 10*3/uL [facility] RBC (Bld) [#/Vol] 3.63 10*6/uL Low 3.8 - 5.20 10*6/uL [facility] WBC (Bld) [#/Vol] 6.8 10*3/uL 3.6 - 10.7 10*3/uL [facility] CBC panel Auto (Bld)on 08-23 Erythrocyte distribution width (RBC) [Ratio] 14.4 % 11.5 - 14.5 % [facility] Hematocrit (Bld) [Volume fraction] 37.3 % 35.0 - 47.0 % [facility] Hemoglobin (Bld) [Mass/Vol] 12.4 g/dL 11.7 - 16.0 g/dL [facility] Interpretation and review of laboratory results Normal [facility] MCH (RBC) [Entitic mass] 31.7 pg 26.0 - 34.[address] [facility] MCHC (RBC) [Mass/Vol] 33.2 % 32.0 - 36.0 % [facility] MCV (RBC) [Entitic vol] 95.5 fL 80.0 - 98.[address] [facility] Platelet mean volume (Bld) [Entitic vol] 8.8 fL 7.4 - 12.[address] [facility] Platelets (Bld) [#/Vol] 283 10*3/uL 140 - 440 10*3/uL [facility] RBC (Bld) [#/Vol] 3.91 10*6/uL 3.8 - 5.20 10*6/uL [facility] WBC (Bld) [#/Vol] 6.1 10*3/uL 3.6 - 10.7 10*3/uL [facility] Comprehensive metabolic 1998 panelon 08-23-2022 Albumin [Mass/Vol] 3.9 g/dL 3.5 - 5.0 g/dL [facility] ALP [Catalytic activity/Vol] 55 U/L 38 - 126 U/L [facility] ALT [Catalytic activity/Vol] 15 U/L 0 - 34 U/L [facility] Anion gap [Moles/Vol] 5 mmol/L 3 - 13 mmol/L [facility] AST [Catalytic activity/Vol] 28 U/L 15 - 46 U/L [facility] Bilirubin [Mass/Vol] 0.4 mg/dL 0.2 - 1 .3 mg/dL [facility] Calcium [Mass/Vol] 9.0 mg/dL 8.4 - 10. 4 mg/dL [facility] Chloride [Moles/Vol] 109 mmol/L High 98 - 10 7 mmol/L [facility] CO2 [Moles/Vol] 23 mmol/L 22 - 30 mmol/L [facility] Creatinine [Mass/Vol] 0.89 mg/dL 0.52 - 1.04 mg/dL [facility] GFR/1.73 sq M.predicted MDRD (S/P/Bld) [Vol rate/Area] 69.4 mL/min/{1.73_m2} - PINF [facility] Comment on above: Calculation based on the Chronic Kidney Disease Epidemiology Collaboration (CKD-EPI) equation refit without adjustment for race Glucose [Mass/Vol] 87 mg/dL 70 - 100 mg/dL [facility] Interpretation and review of laboratory results Abnormal [facility] Potassium [Moles/Vol] 4.6 mmol/L 3.5 - 5.1 mmol/L [facility] Protein [Mass/Vol] 6.9 g/dL 6.3 - 8.2 g/dL [facility] Sodium [Moles/Vol] 138 mmol/L 135 - 145 mmol/L [facility] Urea nitrogen [Mass/Vol] 33 mg/dL High 7 - 17 mg/dL [facility] Slightly Hemolyzed. Interpret ALKALINE PHOSPHATASE, AST, and POTASSIUM with caution. [facility] ECG 12-LEADon 08-23-2022 ECG 12-LEAD IMPRESSION: Sinus rhythm Normal EKG Electronically Signed On 08-23-2022 14:39:51 EST by Popeye Lazo Normal [facility] No Panel InformationOrdered By: Popeye Lazo on 08-23-2022 P Tryon 72 degrees [employer] Work Phone: [place] Interval 165 ms [facility] Work Phone: [phone] QRS Tryon -1 degrees [employer] Work Phone: QRSD Interval 82 ms [facility] Work Phone: QT Interval 415 ms [facility] Work Phone: [phone] QTC Interval 423 ms [facility] [employer] Work Phone: T Wave Tryon 27 degrees [facility] [employer] Work Phone: [facility] [employer] Work Phone: [phone] No Panel Informationon 08-23 Sinus rhythm Normal EKG Electronically Signed On 08-23-2022 14:39:51 EST by Popeye Lazo Popeye Foster MD - 08/23/2022 IMPRESSION: Sinus rhythm Normal EKG Electronically Signed On 08-23-2022 14:39:51 EST by [address]ye Lazo [facility] Nursing Noteon 08-23-2022 Nursing Note Awaiting x-ray to preform ordered x-ray. Normal [facility] Nursing Note Report given to Ivania. Normal [facility] Nursing Note Nasal airway removed. Normal [facility] Nursing Note Nasal airway placed, left nare. Pt tolerated without difficulty. 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 Vital signsOrdered By: Anastasiya Lazo on 08-23-2022 Heart rate 62 /min bpm [employer] Work Phone: XR CHEST 1 VIEWon 08-23-2022 [...] Signed Date/Time: 08/23/2022 12:02 PM EST Normal [facility] XR CHEST 1 VIEW Patient Name: RICARDA [...] Electronically Signed Date/Time: 08/23/2022 11:42 AM EST [facility] XR Chest Single viewon 08-23 Findings/impression: No significant change from prior examination. Report Dictated on Electronically Signed By: David Castillo Electronically Signed Date/Time: 08/23/2022 12:02 PM [facility] Patient Name: RICARDA OLIVA Exam Date/Time: 08/23/2022 11:35 Procedure: XR CHEST 1 VIEW Ordering Provider: DERAS ANDREW Reason For Exam: Clinical History: Chest tube placement Comparison: 08/23/2022 at 1037 hours Technique: Single AP radiograph of the chest. [facility] David Castillo MD - 08/23/2022 Patient [...] Electronically Signed Date/Time: 08/23/2022 12:[address] [facility] Impression: 1. New right basilar chest tube with improvement of small right pleural effusion. 2. Mild residual patchy atelectasis/infiltrates in the right lung base. Report Dictated on Electronically Signed By: David Castillo Electronically Signed Date/Time: 08/23/2022 11:42 AM [facility] Patient Name: RICARDA OLIVA Exam Date/Time: [...] is seen in the right chest wall. [facility] David Castillo MD - 08/23/2022 Patient Name: [...] Electronically Signed Date/Time: 08/23/2022 11:42 AM EST [facility] XR Chest Single viewOrdered By: David Castillo on 08-23-2022 [employer] Work Phone: [employer] Work Phone: 36on 08-21-2022 36 Name of caller requesting page:Ricarda Phone Number of caller: [phone] Facility requesting page: N/A Reason for Page: little trouble breathing Provider paged: Practice Name of paged provider: Cardiothoracic surgery Page Placed to #: N/A Time Page was sent or provider contacted: 4:45 PM Page Content: Patient is requesting a call back at [phone] stating she is having a little trouble breathing and she is having surgery on Friday. Please advise Normal [facility] Psychiatry Adulton 3 Psychiatry Adult Diagnoses/Problems Assessed [...] intrusive thoughts (more content not included)... Normal [facility] Tobacco Screening.on 023 Fall risk assessment a) No falls within the last year [facility] Work Phone: Tobacco use status CP b) No [facility] Work Phone: Tobacco Screening. Yes [facility] Work Phone: 36on 08-16-2022 36 Called patient and a ll questions answered [facility] 36 Patient is scheduled for right VATS pleurodesis on 08/23/22 Patient is calling in asking about how much pain she will be in after surgery and what pain medication will be called in for her? She does not have a PAT because [place] Please advise [phone] [facility] 36on 08-15-2022 36 Surg proc orders [place]. Hussein White APRN - JULIA 08/15/22 [facility] 36 Patient is scheduled for Right VATS pleurodesis possible pulmonary decortication on 08/23/22 at 7:[address] Hendrickson told patient they could do all pre-op testing morning of surgery since they live so far away Please place surg proc orders Thank you [facility] Office Visiton 08-15-2022 Follow-up visit [id number] Yuliya Oliva 1950 F Date Provider Department Center 08/15/2022 [id number] HENDRICKSON [facility] None Family History Problem Relation Age of Onset Diabetes Maternal Grandmother Cancer Mother Hypertension Maternal Grandmother Diabetes Mother Family Status - Relation Status Age at Maternal Grandmother Mother Level of Service:36332 [place] OFFICE/OUTPATIENT ESTABLISHED LOW MDM 20-29 MIN Reason for Visit and Comments: Follow-up [034421] [facility] Progress Noteon 08-15-2022 Progress Note [facility] [address] [facility] [address] Dept: [phone] Dept Loc: [phone] Patient was seen today via Telehealth by [...] stated that they are currently in the [facility]. If the patient is a minor, permission [...] images and discussed the findings w/ the [employer]. I recommend a right VATS pleuradesis and [...] K, C (more content not included)... Normal [facility] 36on 08-09-2022 36 Patient called in as for the results of the CT scan done at [place]. Images have been pushed thru to [employer] and report is on Dr Hendrickson's desk. She would like a call back to discuss. Normal [facility] Office Visiton 07-25-2022 Follow-up visit [id number] Yuliya Oliva 1950 F Date Provider Department Center 07/25/2022 [id number] [facility]ENDRICKSON [facility] CT None Family History Problem Relation Age of Onset Diabetes Maternal Grandmother Cancer Mother Hypertension Maternal Grandmother Diabetes Mother Family Status - Relation Status Age at Maternal Grandmother Mother Level of Service:77320 [place] OFFICE/OUTPATIENT ESTABLISHED MOD [facility] 30-39 MIN Reason for Visit and Comments: Results [95] - Discuss results Normal [facility] Progress Noteon 12-15-2022 Progress Note [facility] [address] [facility] [address] Dept: [phone] Dept Loc: [phone] Visit type: Established Reason for Visit: right [...] Note 02/28/22 Assessment and Plan S/p pneumonia 2013 w/ resultant rt pleural effusion and lung [...] and Aff (more content not included)... Normal [facility] Nursing Noteon 07-12-2022 Nursing Note Patient arrived [...] instructions reviewed and patient discharged to home. [facility] US GUIDED THORACENTESISon US GUIDED THORACENTESIS Patient [...] Mayes Electronically Signed Date/Time: 07/12/2022 1:27 PM [facility] Psychiatry Adulton Psychiatry Adult Diagnoses/Problems Assessed Bipolar disorder with [...] no flashback (more content not included)... Normal [facility] Complete Blood Count + Diffe amira 02-25-2022 Basophils/100 WBC (Bld) 1.3 % 0.0 - 2.0 [facility] Work Phone: Erythrocyte distribution width (RBC) [Ratio] 14.0 % See Below [facility] Work Phone: Comment on above: Reference Range: 11. 5 - 14.5 Hematocrit (Bld) [Volume fraction] 38.4 % See Below [facility] Work Phone: Comment on above: Reference Range: 36. 0 - 46.0 Hemoglobin (Bld) [Mass/Vol] 12.7 g/dL See Below [facility] Work Phone: Comment on above: Reference Range: 12. 0 - 16.0 Lymphocytes/100 WBC (Bld) 29.4 % See Below [facility] Work Phone: Comment on above: Reference Range: 13. 0 - 44.0 MCHC (RBC) [Mass/Vol] 33.0 g/dL See Below [facility] Work Phone: Comment on above: Reference Range: 32. 0 - 36.0 MCV (RBC) [Entitic vol] 97 fL 80 - 100 [facility] Work Phone: Monocytes/100 WBC (Bld) 10.4 % 2.0 - 10.0 [facility] Work Phone: Neutrophils/100 WBC (Bld) 55.2 % See Below [facility] Work Phone: Comment on above: Reference Range: 40. 0 - 80.0 Platelets (Bld) [#/Vol] 232 10*3/uL 150 - 450 [facility] Work Phone: RBC (Bld) [#/Vol] 3.95 {x10E12/L} below low threshold See Below [facility] Work Phone: Comment on above: Reference Range: 4.0 0 - 5.20 WBC (Bld) [#/Vol] 5.4 10*3/uL 4.4 - 11.3 [facility] Work Phone: Complete Blood Count + Differential 0.10 {x10E9/L} See Below [facility] Work Phone: Comment on above: Reference Range: 0.0 0 - 0.10 Complete Blood Count + Differential 0.20 {x10E9/L} See Below [facility] Work Phone: Comment on above: Reference Range: 0.0 0 - 0.70 Complete Blood Count + Differential 0.60 {x10E9/L} See Below [facility] Work Phone: Comment on above: Reference Range: 0.1 0 - 1.00 Complete Blood Count + Differential 1.60 {x10E9/L} See Below [facility] Work Phone: Comment on above: Reference Range: 1.2 0 - 4.80 Complete Blood Count + Differential 3.00 {x10E9/L} See Below [facility] Work Phone: Comment on above: Reference Range: 1.2 0 - 7.70 Percent differential counts (%) should be interpreted in the context of the absolute cell counts (cells/L). Complete Blood Count + Differential 3.7 % 0.0 - 6.0 [facility] Work Phone: Complete Blood Count + Differential 0.1 {/100_WBC} [facility] Work Phone: [phone] Laboratory - Chemistry and C hemistry - challengeon 02-25-2022 Albumin BCP dye [Mass/Vol] 4.1 g/dL 3.4 - 5.0 [facility] Work Phone: [phone] ALP [Catalytic activity/Vol] 59 U/L 33 - 136 [facility] Work Phone: [phone] ALT With P-5'-P [Catalytic activity/Vol] 14 U/L 7 - 45 [facility] Work Phone: [phone] Comment on above: Patients treated wit h Sulfasalazine may generate falsely decreased results for ALT. Anion gap [Moles/Vol] 9 mmol/L below low threshold 10 - 20 [facility] Work Phone: [phone] AST With P-5'-P [Catalytic activity/Vol] 16 U/L 9 - 39 [facility] -[address] Work Phone: [phone] Bilirubin [Mass/Vol] 0.4 mg/dL 0.0 - 1.2 MG-[facility] sychiatry -[address] Work Phone: [phone] Calcium [Mass/Vol] 9.0 mg/dL 8.6 - 10.3 [facility] -[address] Work Phone: [phone] Chloride [Moles/Vol] 106 mmol/L 98 - 107 [facility]chiatry -[facility] Work Phone: [phone] CO2 [Moles/Vol] 29 mmol/L 21 - 32 [facility] -[address] Work Phone: [phone] Creatinine [Mass/Vol] 0.91 mg/dL See Below [facility] Work Phone: [phone] Comment on above: Reference Range: 0.5 0 - 1.05 Glucose [Mass/Vol] 87 mg/dL 74 - 99 [facility] Work Phone: [phone] Potassium [Moles/Vol] 4.8 mmol/L 3.5 - 5.3 [facility] Work Phone: Protein [Mass/Vol] 6.7 g/dL 6.4 - 8.2 [facility] alesia [facility] Work Phone: Sodium [Moles/Vol] 139 mmol/L 136 - 145 [facility] alesia [facility] Work Phone: Urea nitrogen [Mass/Vol] 21 mg/dL 6 - 23 [facility] Work Phone: No Panel Informationon 02-25 68 {mL/min/1.73m2} >90 [facility] alesia -[employer] [facility] Work Phone: Comment on above: CALCULATIONS OF CHEPE MATED GFR ARE PERFORMED USING THE 2020 CKD-EPI STUDY REFIT EQUATION WITHOUT THE RACE VARIABLE FOR THE IDMS-TRACEABLE CREATININE METHODS.https://jasn.asnjournals.org/content/early// N.7104064692 Valproic Acid Level, Serumon 02-25-2022 Valproate [Mass/Vol] 61 ug/mL 50 - 100 [email or web address] [facility] Work Phone: Psychiatry Adulton 2 Psychiatry Adult [...] consent was requested and obtained from RICARDA PJ on this date, 10/16/2021 02:00 PM , for a telehealth visit. I am doing better. An interactive audio and video telecommunication system which permits real time communications between the patient (at the originating site) and provider (at the distant site) was utilized to provide this telehealth service. Verbal consent was requested and obtained from RICARDA PJ on this date, 10/16/2021 02:00 PM , [...] phobia, n (more content not included)... Normal [employer] Tobacco Screening.on 022 Fall risk assessment a) No falls within the last year [facility] Work Phone: Tobacco use status CPHS b) No [facility] Work Phone: Complete Blood Count + Diffe hubert 07-31-2021 Basophils/100 WBC (Bld) 1.1 % 0.0 - 2.0 [facility] [address] Work Phone: Erythrocyte distribution width (RBC) [Ratio] 15.2 % above high threshold See Below [facility] Work Phone: [phone] Comment on above: Reference Range: 11. 5 - 14.5 Hematocrit (Bld) [Volume fraction] 39.5 % See Below [facility] Work Phone: [phone] Comment on above: Reference Range: 36. 0 - 46.0 Hemoglobin (Bld) [Mass/Vol] 12.8 g/dL See Below [facility] Work Phone: [phone] Comment on above: Reference Range: 12. 0 - 16.0 Lymphocytes/100 WBC (Bld) 25.1 % See Below [facility] Work Phone: [phone] Comment on above: Reference Range: 13. 0 - 44.0 MCHC (RBC) [Mass/Vol] 32.5 g/dL See Below [facility] Work Phone: [phone] Comment on above: Reference Range: 32. 0 - 36.0 MCV (RBC) [Entitic vol] 98 fL 80 - 100 [facility] Work Phone: [phone] Monocytes/100 WBC (Bld) 9.1 % 2.0 - 10.0 [facility] Work Phone: [phone] Neutrophils/100 WBC (Bld) 60.5 % See Below [facility] Work Phone: [phone] Comment on above: Reference Range: 40. 0 - 80.0 Platelets (Bld) [#/Vol] 303 10*3/uL 150 - 450 [facility] Work Phone: [phone] RBC (Bld) [#/Vol] 4.02 {x10E12/L} See Below [facility] Work Phone: [phone] Comment on above: Reference Range: 4.0 0 - 5.20 WBC (Bld) [#/Vol] 7.1 10*3/uL 4.4 - 11.3 [facility] Work Phone: [phone] Complete Blood Count + Differential 0.10 {x10E9/L} See Below [facility] Work Phone: Comment on above: Reference Range: 0.0 0 - 0.10 Complete Blood Count + Differential 0.30 {x10E9/L} See Below [address] Work Phone: Comment on above: Reference Range: 0.0 0 - 0.70 Complete Blood Count + Differential 0.60 {x10E9/L} See Below [facility] Work Phone: Comment on above: Reference Range: 0.1 0 - 1.00 Complete Blood Count + Differential 1.80 {x10E9/L} See Below [facility] Work Phone: Comment on above: Reference Range: 1.2 0 - 4.80 Complete Blood Count + Differential 4.30 {x10E9/L} See Below [facility] Work Phone: Comment on above: Reference Range: 1.2 0 - 7.70 Percent differential counts (%) should be interpreted in the context of the absolute cell counts (cells/L). Complete Blood Count + Differential 4.2 % 0.0 - 6.0 [facility] [address] Work Phone: Complete Blood Count + Differential 0.1 {/100_WBC} [address] Work Phone: Laboratory - Chemistry and C hemistry - challengeon 07-31-2021 Albumin BCP dye [Mass/Vol] 3.9 g/dL 3.4 - 5.0 [facility] [address] Work Phone: ALP [Catalytic activity/Vol] 63 U/L 33 - [address] Work Phone: ALT With P-5'-P [Catalytic activity/Vol] 16 U/L 7 - [address] Work Phone: Comment on above: Patients treated wit h Sulfasalazine may generate falsely decreased results for ALT. Anion gap [Moles/Vol] 9 mmol/L below low threshold 10 - 20 [facility] Work Phone: AST With P-5'-P [Catalytic activity/Vol] 16 U/L 9 - 39 [facility] Work Phone: Bilirubin [Mass/Vol] 0.4 mg/dL 0.0 - 1.2 MG-[facility] sychiatry [facility] Work Phone: Calcium [Mass/Vol] 9.3 mg/dL 8.6 - 10.3 [facility] Work Phone: Chloride [Moles/Vol] 105 mmol/L 98 - 107 [facility]chiat[facility] Work Phone: CO2 [Moles/Vol] 32 mmol/L 21 - 32 [facility] Work Phone: Creatinine [Mass/Vol] 0.91 mg/dL See Below [facility] Work Phone: Comment on above: Reference Range: 0.5 0 - 1.05 Glucose [Mass/Vol] 69 mg/dL below low threshold 74 - 99 [facility] Work Phone: Potassium [Moles/Vol] 4.2 mmol/L 3.5 - 5.3 [facility] Work Phone: Protein [Mass/Vol] 6.7 g/dL 6.4 - 8.2 [facility] Work Phone: Sodium [Moles/Vol] 142 mmol/L 136 - 145 [facility] Work Phone: Urea nitrogen [Mass/Vol] 24 mg/dL above high threshold 6 - 23 [facility] Work Phone: No Panel Informationon 07-31 >60 >60 [facility] Work Phone: Comment on above: CALCULATIONS OF CHEPE MATED GFR ARE PERFORMED USING THE MDRD STUDY EQUATION FOR THE IDMS-TRACEABLE CREATININE METHODS. CLIN CHEM 2007;53:766-72 Valproic Acid Level, Serumon 07-31-2021 Valproate [Mass/Vol] 73 ug/mL 50 - 100 MG-P [facility] [place] Work Phone: CBC AND DIFFERENTIALon 11-14 Basophils (Bld) [#/Vol] 0.10 10*3/uL Normal 0.00 - 0.10 [facility] Comment on above: Performed By: #### C BCDF #### [address] [address] Basophils/100 WBC (Bld) 1.0 % Normal 0.0 - 2.0 [facility] Comment on above: Performed By: #### C BCDF #### [address] [address] Eosinophils (Bld) [#/Vol] 0.20 10*3/uL Normal 0.00 - 0.70 [facility] Comment on above: Performed By: #### C BCDF #### [address] [address] Eosinophils/100 WBC (Bld) 3.2 % Normal 0.0 - 6.0 [facility] Comment on above: Performed By: #### C BCDF #### [address] [address] Erythrocyte distribution width (RBC) [Ratio] 14.3 % Normal 11.5 - 14.5 [facility] Comment on above: Performed By: #### C BCDF #### [address] [address] Hematocrit (Bld) [Volume fraction] 37.9 % Normal 36.0 - 46.0 [facility] Comment on above: Performed By: #### C BCDF #### [address] [address] Hemoglobin (Bld) [Mass/Vol] 12.4 g/dL Normal 12.0 - 16.0 [facility] Comment on above: Performed By: #### C BCDF #### [address] [address] Lymphocytes (Bld) [#/Vol] 1.90 10*3/uL Normal 1.20 - 4.80 [facility] Comment on above: Performed By: #### C BCDF #### [address] [address] Lymphocytes/100 WBC (Bld) 32.0 % Normal 13.0 - 44.0 [facility] Comment on above: Performed By: #### C BCDF #### [address] [address] MCHC (RBC) [Mass/Vol] 32.6 g/dL Normal 32.0 - 36.0 [facility] Comment on above: Performed By: #### C BCDF #### [address] [address] MCV (RBC) [Entitic vol] 97 fL Normal 80 - 100 [facility] Comment on above: Performed By: #### C BCDF #### [address] [address] Monocytes (Bld) [#/Vol] 0.60 10*3/uL Normal 0.10 - 1.00 [facility] Comment on above: Performed By: #### C BCDF #### [address] [address] Monocytes/100 WBC (Bld) 9.7 % Normal 2.0 - 10.0 [facility] Comment on above: Performed By: #### C BCDF #### [address] [address] Neutrophils (Bld) [#/Vol] 3.10 10*3/uL Normal 1.20 - 7.70 [facility] Comment on above: Result Comment: Perc ent differential counts (%) should be interpreted in the context of the absolute cell counts (cells/L). Performed By: #### C BCDF #### [address] [address] Neutrophils/100 WBC (Bld) 54.1 % Normal 40.0 - 80.0 [facility] Comment on above: Performed By: #### C BCDF #### [address] [address] Nucleated RBC/100 WBC (Bld) [Ratio] 0.2 /100 WBC Normal [facility] Comment on above: Performed By: #### C BCDF #### [address] [address] Platelets (Bld) [#/Vol] 249 10*3/uL Normal 150 - 450 [facility] Comment on above: Performed By: #### C BCDF #### [address] [address] RBC (Bld) [#/Vol] 3.92 x10E12/L Low 4.00 - 5.20 [facility] Comment on above: Performed By: #### C BCDF #### [address] [address] WBC (Bld) [#/Vol] 5.8 10*3/uL Normal 4.4 - 11.3 [facility] Comment on above: Performed By: #### C BCDF #### [address] [address] COMPREHENSIVE PANELon 2020 Albumin [Mass/Vol] 4.0 g/dL Normal 3.4 - 5.0 [facility] Comment on above: Performed By: #### C MP #### [address] [address] ALP [Catalytic activity/Vol] 60 U/L Normal 33 - 136 [facility] Comment on above: Performed By: #### C MP #### [address] [address] ALT [Catalytic activity/Vol] 17 U/L Normal 7 - 45 [facility] Comment on above: Result Comment: Melida ents treated with Sulfasalazine may generate falsely decreased results for ALT. Performed By: #### C MP #### [address] [address] Anion gap [Moles/Vol] 10 mmol/L Normal 10 - 20 [facility] Comment on above: Performed By: #### C MP #### [address] [address] AST [Catalytic activity/Vol] 17 U/L Normal 9 - 39 [facility] Comment on above: Performed By: #### C MP #### [address] [address] Bilirubin [Mass/Vol] 0.4 mg/dL Normal 0.0 - 1.2 [facility] Comment on above: Performed By: #### C MP #### [address] [address] Calcium [Mass/Vol] 9.4 mg/dL Normal 8.6 - 10.3 [facility] Comment on above: Performed By: #### C MP #### [address] [address] Chloride [Moles/Vol] 104 mmol/L Normal 98 - 107 [facility] Comment on above: Performed By: #### C MP #### [address] [address] Creatinine [Mass/Vol] 1.02 mg/dL Normal 0.50 - 1.05 [facility] Comment on above: Performed By: #### C MP #### [address] [address] GFR- AM. 65 mL/min/1.73m2 Normal >60 [facility] Comment on above: Result Comment: CALC ULATIONS OF ESTIMATED GFR ARE PERFORMED USING THE MDRD STUDY EQUATION FOR THE IDMS-TRACEABLE CREATININE METHODS. CLIN CHEM 2007;53:766-72 Performed By: #### C MP #### [address] [address] GFR-NON AM. 54 mL/min/1.73m2 Abnormal >60 [facility] Comment on above: Performed By: #### C MP #### [address] [address] Glucose [Mass/Vol] 92 mg/dL Normal 74 - 99 [facility] Comment on above: Performed By: #### C MP #### [address] [address] HCO3 (Bld) [Moles/Vol] 28 mmol/L Normal 21 - 32 [facility] Comment on above: Performed By: #### C MP #### [address] [address] Potassium [Moles/Vol] 4.3 mmol/L Normal 3.5 - 5.3 [facility] Comment on above: Performed By: #### C MP #### [place] [address] Protein [Mass/Vol] 6.8 g/dL Normal 6.4 - 8.2 [facility] Comment on above: Performed By: #### C MP #### [place] [address] Sodium [Moles/Vol] 138 mmol/L Normal 136 - 145 [facility] Comment on above: Performed By: #### C MP #### [place] [address] Urea nitrogen [Mass/Vol] 23 mg/dL Normal 6 - 23 [facility] Comment on above: Performed By: #### C MP #### [place] [address] VALPROIC ACIDon 11-14-2020 VALPROIC ACID 54 ug/mL Normal 50 - 100 [facility] Comment on above: Performed By: #### V ALPR #### [place] [address] CBC AND DIFFERENTIALon 08-15 Basophils (Bld) [#/Vol] 0.10 10*3/uL Normal 0.00 - 0.10 [facility] Comment on above: Performed By: #### C BCDF #### [place] [address] Basophils/100 WBC (Bld) 1.0 % Normal 0.0 - 2.0 [facility] Comment on above: Performed By: #### C BCDF #### [place] [address] Eosinophils (Bld) [#/Vol] 0.30 10*3/uL Normal 0.00 - 0.70 [facility] Comment on above: Performed By: #### C BCDF #### [address] [address] Eosinophils/100 WBC (Bld) 5.4 % Normal 0.0 - 6.0 [facility] Comment on above: Performed By: #### C BCDF #### [address] [address] Erythrocyte distribution width (RBC) [Ratio] 13.9 % Normal 11.5 - 14.5 [facility] Comment on above: Performed By: #### C BCDF #### [address] [address] Hematocrit (Bld) [Volume fraction] 38.0 % Normal 36.0 - 46.0 [facility] Comment on above: Performed By: #### C BCDF #### [address] [address] Hemoglobin (Bld) [Mass/Vol] 12.5 g/dL Normal 12.0 - 16.0 [facility] Comment on above: Performed By: #### C BCDF #### [address] [address] Lymphocytes (Bld) [#/Vol] 1.80 10*3/uL Normal 1.20 - 4.80 [facility] Comment on above: Performed By: #### C BCDF #### [address] [address] Lymphocytes/100 WBC (Bld) 31.2 % Normal 13.0 - 44.0 [facility] Comment on above: Performed By: #### C BCDF #### [address] [address] MCHC (RBC) [Mass/Vol] 32.9 g/dL Normal 32.0 - 36.0 [facility] Comment on above: Performed By: #### C BCDF #### [address] [address] MCV (RBC) [Entitic vol] 96 fL Normal 80 - 100 [facility] Comment on above: Performed By: #### C BCDF #### [address] [address] Monocytes (Bld) [#/Vol] 0.70 10*3/uL Normal 0.10 - 1.00 [facility] Comment on above: Performed By: #### C BCDF #### [address] [address] Monocytes/100 WBC (Bld) 11.6 % Normal 2.0 - 10.0 [facility] Comment on above: Performed By: #### C BCDF #### [address] [address] Neutrophils (Bld) [#/Vol] 2.90 10*3/uL Normal 1.20 - 7.70 [facility] Comment on above: Result Comment: Perc ent differential counts (%) should be interpreted in the context of the absolute cell counts (cells/L). Performed By: #### C BCDF #### [address] [address] Neutrophils/100 WBC (Bld) 50.8 % Normal 40.0 - 80.0 [facility] Comment on above: Performed By: #### C BCDF #### [address] [address] Nucleated RBC/100 WBC (Bld) [Ratio] 0.1 /100 WBC Normal [facility] Comment on above: Performed By: #### C BCDF #### [address] [address] Platelets (Bld) [#/Vol] 256 10*3/uL Normal 150 - 450 [facility] Comment on above: Performed By: #### C BCDF #### [address] [address] RBC (Bld) [#/Vol] 3.94 x10E12/L Low 4.00 - 5.20 [facility] Comment on above: Performed By: #### C BCDF #### [address] [address] WBC (Bld) [#/Vol] 5.7 10*3/uL Normal 4.4 - 11.3 [facility] Comment on above: Performed By: #### C BCDF #### [address] [address] COMPREHENSIVE PANELon 2020 Albumin [Mass/Vol] 4.0 g/dL Normal 3.4 - 5.0 [facility] Comment on above: Performed By: #### C MP #### [address] [address] ALP [Catalytic activity/Vol] 57 U/L Normal 33 - 136 [facility] Comment on above: Performed By: #### C MP #### [address] [address] ALT [Catalytic activity/Vol] 14 U/L Normal 7 - 45 [facility] Comment on above: Result Comment: Melida ents treated with Sulfasalazine may generate falsely decreased results for ALT. Performed By: #### C MP #### [address] [address] Anion gap [Moles/Vol] 9 mmol/L Low 10 - 20 [facility] Comment on above: Performed By: #### C MP #### [address] [address] AST [Catalytic activity/Vol] 12 U/L Normal 9 - 39 [facility] Comment on above: Performed By: #### C MP #### [address] [address] Bilirubin [Mass/Vol] 0.4 mg/dL Normal 0.0 - 1.2 [facility] Comment on above: Performed By: #### C MP #### [address] [address] Calcium [Mass/Vol] 8.9 mg/dL Normal 8.6 - 10.3 [facility] Comment on above: Performed By: #### C MP #### [address] [address] Chloride [Moles/Vol] 106 mmol/L Normal 98 - 107 [facility] Comment on above: Performed By: #### C MP #### [address] [address] Creatinine [Mass/Vol] 0.87 mg/dL Normal 0.50 - 1.05 [facility] Comment on above: Performed By: #### C MP #### [address] [address] GFR- AM. >60 Normal >60 [facility] Comment on above: Result Comment: CALC ULATIONS OF ESTIMATED GFR ARE PERFORMED USING THE MDRD STUDY EQUATION FOR THE IDMS-TRACEABLE CREATININE METHODS. CLIN CHEM 2007;53:766-72 Performed By: #### C MP #### [address] [address] GFR-NON AM. >60 Normal >60 [facility] Comment on above: Performed By: #### C MP #### [address] [address] Glucose [Mass/Vol] 80 mg/dL Normal 74 - 99 [facility] Comment on above: Performed By: #### C MP #### [address] [address] HCO3 (Bld) [Moles/Vol] 29 mmol/L Normal 21 - 32 [facility] Comment on above: Performed By: #### C MP #### [address] [address] Potassium [Moles/Vol] 4.3 mmol/L Normal 3.5 - 5.3 [facility] Comment on above: Performed By: #### C MP #### [address] [address] Protein [Mass/Vol] 6.7 g/dL Normal 6.4 - 8.2 [facility] Comment on above: Performed By: #### C MP #### [address] [address] Sodium [Moles/Vol] 140 mmol/L Normal 136 - 145 [facility] Comment on above: Performed By: #### C MP #### [address] [address] Urea nitrogen [Mass/Vol] 28 mg/dL High 6 - 23 [facility] Comment on above: Performed By: #### C MP #### [address] [address] VALPROIC ACIDon 08-15-2020 VALPROIC ACID 46 ug/mL Low 50 - 100 [facility] Comment on above: Performed By: #### V ALPR #### [address] [address] VALPROIC ACIDon 02-29-2020 VALPROIC ACID 46 ug/mL Low 50 - 100 [facility] Comment on above: Performed By: #### V ALPR #### [address] [address] .Auto Diffon 02-14-2020 Ammonia (P) [Mass/Vol] 0.50 10 3/mcL Normal 0.15-1.00 [facility] ([place]) Comment on above: Performed By: #### C BC, ADIFF, ANEU, FE, TSH, LIPID, CMP, GFR, IBC #### [address] [address] Basophils (Bld) [#/Vol] 0.00 10 3/mcL Normal 0.00-0.19 [facility] ([place]) Comment on above: Performed By: #### C BC, ADIFF, ANEU, FE, TSH, LIPID, CMP, GFR, IBC #### [address] [address] Basophils/100 WBC (Bld) 0.9 % Normal 0.0-2.5 [facility] ([place]) Comment on above: Performed By: #### C BC, ADIFF, ANEU, FE, TSH, LIPID, CMP, GFR, IBC #### [address] [address] Eosinophils (Bld) [#/Vol] 0.20 10 3/mcL Normal 0.00-0.40 [facility] ([place]) Comment on above: Performed By: #### C BC, ADIFF, ANEU, FE, TSH, LIPID, CMP, GFR, IBC #### [address] [address] Eosinophils/100 WBC (Bld) 3.7 % Normal 0.0-7.0 [facility] ([place]) Comment on above: Performed By: #### C BC, ADIFF, ANEU, FE, TSH, LIPID, CMP, GFR, IBC #### [address] [address] Lymphocytes (Bld) [#/Vol] 1.40 10 3/mcL Normal 0.77-3.85 [facility] ([place]) Comment on above: Performed By: #### C BC, ADIFF, ANEU, FE, TSH, LIPID, CMP, GFR, IBC #### [address] [address] Lymphocytes/100 WBC (Bld) 27.5 % Normal 10.0-50.0 [facility] ([place]) Comment on above: Performed By: #### C BC, ADIFF, ANEU, FE, TSH, LIPID, CMP, GFR, IBC #### [address] [address] Monocytes/100 WBC (Bld) 10.7 % Normal 1.7-13.0 [facility] ([place]) Comment on above: Performed By: #### C BC, ADIFF, ANEU, FE, TSH, LIPID, CMP, GFR, IBC #### [address] [address] Neutrophils/100 WBC (Bld) 57.2 % Normal 37.0-80.0 [facility] ([place]) Comment on above: Performed By: #### C BC, ADIFF, ANEU, FE, TSH, LIPID, CMP, GFR, IBC #### [address] [address] .GFRon 02-14-2020 GFR 60 ml/min/1.73sqm Normal [facility] ([place]) Comment on above: Result Comment: GFR Population [...] #### G ALBA, B12, IFES, SPE #### [place] [address] #### VITB6, B1WB #### [address] [address] GFR Non- 49 ml/min/1.73sqm Normal [facility] ([place]) Comment on above: Result Comment: GFR Population [...] #### G ALBA, B12, IFES, SPE #### [place] [address] #### VITB6, B1WB #### [address] [address] .NEUABSon 02-14-2020 Neutrophils (Bld) [#/Vol] 2.90 10 3/mcL Normal 2.85-6.16 [facility] ([place]) Comment on above: Performed By: #### C BC, ADIFF, ANEU, FE, TSH, LIPID, CMP, GFR, IBC #### [address] [address] CBCon 02-14-2020 Erythrocyte distribution width (RBC) [Ratio] 14.0 % Normal 11.5-14.5 [facility] ([place]) Comment on above: Performed By: #### C BC, ADIFF, ANEU, FE, TSH, LIPID, CMP, GFR, IBC #### [address] [address] Hematocrit (Bld) [Volume fraction] 37.0 % Normal 37.0-47.0 [facility] ([place] Comment on above: Performed By: #### C BC, ADIFF, ANEU, FE, TSH, LIPID, CMP, GFR, IBC #### [address] [address] Hemoglobin (Bld) [Mass/Vol] 12.3 G/dL Normal 12.0-16.0 [facility] ([place] Comment on above: Performed By: #### C BC, ADIFF, ANEU, FE, TSH, LIPID, CMP, GFR, IBC #### [address] [address] MCH (RBC) [Entitic mass] 32.0 pg High 27.0-31.2 [facility] ([place] Comment on above: Performed By: #### C BC, ADIFF, ANEU, FE, TSH, LIPID, CMP, GFR, IBC #### [address] [address] MCHC (RBC) [Mass/Vol] 33.3 G/dL Normal 33.0-37.0 [facility] ([place]) Comment on above: Performed By: #### C BC, ADIFF, ANEU, FE, TSH, LIPID, CMP, GFR, IBC #### [address] [address] MCV (RBC) [Entitic vol] 96.3 fL High 80.0-94.0 [facility] ([place] Comment on above: Performed By: #### C BC, ADIFF, ANEU, FE, TSH, LIPID, CMP, GFR, IBC #### [address] [address] Platelet mean volume (Bld) [Entitic vol] 9.0 fL Normal 7.4-10.4 [facility] ([place] Comment on above: Performed By: #### C BC, ADIFF, ANEU, FE, TSH, LIPID, CMP, GFR, IBC #### [address] [address] Platelets (Bld) [#/Vol] 253 10 3/mcL Normal 130-400 [facility] ([place]) Comment on above: Performed By: #### C BC, ADIFF, ANEU, FE, TSH, LIPID, CMP, GFR, IBC #### [address] [address] RBC (Bld) [#/Vol] 3.84 10 6/mcL Low 4.20-5.40 [facility] ([place]) Comment on above: Performed By: #### C BC, ADIFF, ANEU, FE, TSH, LIPID, CMP, GFR, IBC #### [address] [address] WBC (Bld) [#/Vol] 5.10 10 3/mcL Normal 4.60-10.80 [facility] ([place]) Comment on above: Performed By: #### C BC, ADIFF, ANEU, FE, TSH, LIPID, CMP, GFR, IBC #### [address] [address] CMPon 02-14-2020 Albumin [Mass/Vol] 3.4 G/dL Normal 3.4-4.8 [facility] ([place] Comment on above: Performed By: #### Sheila WILLIS B12, IFSABINO, SPE #### [address] [address] #### VITB6, B1WB #### [address] [address] Albumin/Globulin [Mass ratio] 1.0 {ratio} Low 1.1-2.5 [facility] ([place]) Comment on above: Performed By: #### Sheila WILLIS B12, IFES, SPE #### [place] [address] #### VITB6, B1WB #### [address] [address] ALP [Catalytic activity/Vol] 74 U/L Normal 40-135 [facility] ([place]) Comment on above: Performed By: #### Sheila WILLIS, B12, IFES, SPE #### [place] [address] #### VITB6, B1WB #### [address] [address] ALT [Catalytic activity/Vol] 24 U/L Normal 10-35 [facility] ([place]) Comment on above: Performed By: #### Sheila WILLIS, B12, IFES, SPE #### [place] [address] #### VITB6, B1WB #### [address] [address] AST [Catalytic activity/Vol] 16 U/L Normal 10-40 [facility] ([place]) Comment on above: Performed By: #### Sheila WILLIS, B12, IFES, SPE #### [place] [address] #### VITB6, B1WB #### [address] [address] Bili Total 0.4 mg/dL Normal 0.2-1.0 [facility] ([place]) Comment on above: Result Comment: Use of this assay is not recommended for patients undergoing treatment with eltrombopag due to the potential for falsely elevated results. Performed By: #### Sheila WILLIS, B12, IFES, SPE #### [place] [address] #### VITB6, B1WB #### [address] [address] Calcium [Mass/Vol] 9.2 mg/dL Normal 8.4-10.2 [facility] [place] Comment on above: Performed By: #### G ALBA, B12, IFES, SPE #### [place] [address] #### VITB6, B1WB #### [address] [address] Chloride [Moles/Vol] 106 mmol/L Normal 98-107 [facility] ([place] Comment on above: Performed By: #### Sheila WILLIS, B12, IFES, SPE #### [place] [address] #### VITB6, B1WB #### [address] [address] CO2 [Moles/Vol] 32 mmol/L High 23-31 [facility] ([place] Comment on above: Performed By: #### Sheila IWLLIS, B12, IFES, SPE #### [place] [address] #### VITB6, B1WB #### [address] [address] Creatinine [Mass/Vol] 1.10 mg/dL High 0.55-1.02 [facility] ([place] Comment on above: Performed By: #### Anastacio SANABRIA, IFES, SPE #### [place] [address] #### VITB6, B1WB #### [address] [address] Electrolyte Balance 5.0 mEq/L Normal [facility] ([place]) Comment on above: Performed By: #### Sheila WILLIS, B12, IFES, SPE #### [place] [address] #### VITB6, B1WB #### [address] [address] Globulin (S) [Mass/Vol] 3.4 G/dL Normal [facility] ([place] Comment on above: Performed By: #### Sheila WILLIS, B12, IFES, SPE #### [place] [address] #### VITB6, B1WB #### [address] [address] Glucose [Mass/Vol] 86 mg/dL Normal 80-115 [facility] [place] Comment on above: Performed By: #### Anastacio SANABRIA, IFES, SPE #### [place] [address] #### VITB6, B1WB #### [address] [address] Potassium [Moles/Vol] 5.6 mmol/L High 3.5-5.1 [facility] ([place] Comment on above: Performed By: #### Anastacio SANABRIA, IFSABINO, SPE #### [place] [address] #### VITB6, B1WB #### [address] [address] Protein [Mass/Vol] 6.8 G/dL Normal 6.4-8.2 [facility] [place] Comment on above: Performed By: #### Anastacio SANABRIA, IFES, SPE #### [place] [address] #### VITB6, B1WB #### [address] [address] Sodium [Moles/Vol] 143 mmol/L Normal 136-145 [facility] [place] Comment on above: Performed By: #### Anastacio SANABRIA, IFES, SPE #### [place] [address] #### VITB6, B1WB #### [address] [address] Urea nitrogen [Mass/Vol] 24 mg/dL High 7-18 [facility] ([place] Comment on above: Performed By: #### Sheila WILLIS B12, IFES, SPE #### [place] [address] #### VITB6, B1WB #### [address] [address] Urea nitrogen/Creatinine [Mass ratio] 22 ratio Normal 7-27 [facility] ([place] Comment on above: Performed By: #### Anastacio SANABRIA, IFES, SPE #### [place] [address] #### VITB6, B1WB #### [address] [address] FEon 02-14-2020 Iron [Mass/Vol] 59 ug/dL Normal 50-170 [facility] ([place] Comment on above: Performed By: #### Anastacio SANABRIA, IFES, SPE #### [place] [address] #### VITB6, B1WB #### [address] [address] IBCon 02-14-2020 TIBC 289 mcg/dL Normal 250-450 [facility] ([place] Comment on above: Performed By: #### Anastacio SANABRIA IFSABINO, SPE #### [place] [address] #### VITB6, B1WB #### [address] [address] LIPIDon 02-14-2020 Cholesterol [Mass/Vol] 188 mg/dL Normal 0-200 [facility] ([place] Comment on above: Result Comment: Chol esterol Reference Interval: Less than 200 Desirable 200-239 Borderline high risk 240 and above High risk Performed By: #### Anastacio SANABRIA, IFES, SPE #### [place] [address] #### VITB6, B1WB #### [address] [address] Cholesterol in HDL [Mass/Vol] 61 mg/dL High 40-60 [facility] ([place] Comment on above: Performed By: #### Anastacio SANABRIA, IFES, SPE #### [place] [address] #### VITB6, B1WB #### [address] [address] Cholesterol in LDL [Mass/Vol] 117 mg/dL Normal 0-130 [facility] ([place] Comment on above: Performed By: #### Anastacio SANABRIA, IFES, SPE #### [address] [address] #### VITB6, B1WB #### [address] [address] Triglyceride [Mass/Vol] 52 mg/dL Normal 0-150 [facility] ([place] Comment on above: Result Comment: Trig lyceride Reference Interval: Less than 150 Normal 150-199 Borderline high risk 200-499 High risk 500 or higher Very high risk Performed By: #### Anastacio SANABRIA, IFES, SPE #### [place] [address] #### VITB6, B1WB #### [place] [address] TSHon 02-14-2020 TSH Qn 2.48 mcIU/mL Normal 0.36-3.74 [facility] ([place] Comment on above: Performed By: #### Anastacio SANABRIA, IFES, SPE #### [place] [address] #### VITB6, B1WB #### [place] [address] OVAPon 11-23-2019 Ova & Parasite exam See Results Below Normal [facility] ([place]) Comment on above: Result Comment: Spec imen Desc: Stool Sp. Request/Comment: Specimen received in Ova and Parasite Kit. Culture Result No parasites seen. Report Status Pending Performed By: [facility] [employer] [address] [place] [address] Estimator: Billie Talbot III#: [id number] Phone#: Performed By: #### O VAP #### [place] [address] SPEon 06-02-2019 SPE Interpretation Normal serum protein electrophoresis pattern. No abnormality detected. Normal [facility] ([place]) Comment on above: Result Comment: Elec tronically Signed by: CHACE ADAMES 06/02/2019 11:13 EDT Performed By: #### G ALBA B12, IFES, SPE #### [address] [address] #### VITB6, B1WB #### [address] [address] B1WBon 06-01-2019 Vitamin B1 (TDP), Whole Blood 274.6 nmol/L High 84.0-213.0 [facility] [facility] ([place]) Comment on above: Result Comment: This assay measures the concentration of thiamine diphosphate (TDP), the primary active form of vitamin B1. Approximately 90 percent of vitamin B1 present in whole blood is TDP. Thiamine and thiamine monophosphate, which comprise the remaining 10 percent, are not measured. This test was developed and its performance characteristics determined by [facility]'s [facility] Pathology and Laboratory [facility] [place] ([facility]). It has not been cleared or approved by the FDA. [facility] is regulated under CLIA as qualified to perform high complexity testing. This test is used for clinical purposes. It should not be regarded as investigational or for research. Performed By: [facility] [address] [place] [address] Estimator: Debbie Barajas M.D. IA#: [id number] Phone#: Performed By: #### Sheila WILLIS, B12, IFES, SPE #### [address] [address] #### VITB6, B1WB #### [address] [address] SPEon 06-01-2019 Albumin [Mass/Vol] 3.7 G/dL Normal 3.3-5.0 [facility] ([place]) Comment on above: Performed By: #### Sheila WILLIS, B12, IFES, SPE #### [address] [address] #### VITB6, B1WB #### [address] [address] Alpha 1 0.2 G/dL Normal 0.1-0.4 [facility] ([place]) Comment on above: Performed By: #### G ALBA, B12, IFES, SPE #### [address] [address] #### VITB6, B1WB #### [address] [address] Alpha 2 1.1 G/dL Normal 0.6-1.2 [facility] ([place]) Comment on above: Performed By: #### G ALBA, B12, IFES, SPE #### [place] [address] #### VITB6, B1WB #### [address] [address] Beta 1.0 G/dL Normal 0.6-1.3 [facility] ([place]) Comment on above: Performed By: #### G ALBA, B12, IFES, SPE #### [place] [id number] #### VITB6, B1WB #### [address] [address] Gamma 1.2 G/dL Normal 0.7-1.6 [facility] ([place]) Comment on above: Performed By: #### G ALBA, B12, IFES, SPE #### [place] [address] #### VITB6, B1WB #### [address] [address] [id number] 06-01-2019 Vitamin B6 Lvl 281.1 High [facility] ([place]) Comment on above: Result Comment: Refe rence range: 20.0 to 125.0 Unit: nmol/L (NOTE) INTERPRETIVE INFORMATION: Vitamin B6 (Pyridoxal 5-Phosphate) Pyridoxal 5'-phosphate measured in a specimen collected following an 8-hour or overnight fast accurately indicates vitamin B6 nutritional status. Non-fasting specimen concentration reflects recent vitamin intake. Test developed and characteristics determined by [facility]. See Compliance Statement B: [email or web address] Performed by [facility], [address] [place] [address] [email or web address], Thee Choi MD, Lab. Director Performed By: #### Sheila WILLIS B12, IFES, SPE #### [place] [address] #### VITB6, B1WB #### [place] [address] B12on 05-28-2019 Cobalamin (Vitamin B12) [Mass/Vol] 1263 pg/mL High 211-911 [facility] ([place] Comment on above: Performed By: #### Sheila WILLIS, B12, IFES, SPE #### [place] [address] #### VITB6, B1WB #### [place] [address] IFESon 05-28-2019 IFES Interpretation Immunofixation electrophoresis of serum shows the presence of only polyclonal immunoglobulins (IgG,A,M,[place] and Lambda), No monoclonal protein detected. Normal [facility] ([place]) Comment on above: Result Comment: Elec tronically Signed by: CHRISTIANE TRISTAN 05/28/2019 15:10 EDT Performed By: #### Sheila WILLIS B12, IFES, SPE #### [place] [address] #### VITB6, B1WB #### [place] [address] SPEon 05-28-2019 Protein [Mass/Vol] 7.2 G/dL Normal 6.0-8.5 [facility] [place] Comment on above: Performed By: #### Sheila WILLIS, B12, IFES, SPE #### [place] [address] #### VITB6, B1WB #### [place] [address] GLUon 05-27-2019 Glucose [Mass/Vol] 91 mg/dL Normal 80-115 [facility] [place] Comment on above: Performed By: #### G ALBA, B12, IFES, SPE #### [facility] [address] [place] [address] #### VITB6, B1WB #### [place] [address] [place], [place] [address] Office Visit: Rodger 06-12-20 17 Documentation of current medications (procedure) Done Invalid Interpretation Code [employer] Work Phone: [phone] Fall risk assessment No Invalid Interpretation Code [employer] Work Phone: [phone] Tobacco use [facility] Former smoker Invalid Interpretation Code [employer] Work Phone: [phone] 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 04-30-2017 Left ventricular Ejection fraction 60 % Invalid Interpretation Code [employer] Work Phone: [phone] Office Visiton 04-17-2017 Documentation of current medications (procedure) Done Invalid Interpretation Code [employer] Work Phone: [phone] Fall risk assessment No Invalid Interpretation Code [employer] Work Phone: [phone] Tobacco use [facility] Former smoker Invalid Interpretation Code [employer] Work Phone: [phone] Replaced Document: [employer] E CG Observationson 04-17-2017 EKG QRS axis -9 deg Invalid Interpretation Code [employer] Work Phone: [phone] electrocardiogram interpretation Sinus Rhythm WITHIN NORMAL LIMITS Invalid Interpretation Code [employer] Work Phone: [phone] GE use only - for [employer] import when terms are not otherwise specified 429 ms Invalid Interpretation Code [employer] Work Phone: [phone] Interpretation Sinus Rhythm WITHIN NORMAL LIMITS Invalid Interpretation Code [employer] Work Phone: [phone] P [place] 65 deg Invalid Interpretation Code [employer] Work Phone: [phone] P wave axis, electrocardiogram 65 deg Invalid Interpretation Code [employer] Work Phone: [phone] VT Interval 136 ms Invalid Interpretation Code [employer] Work Phone: [phone] VT interval, electrocardiogram 136 ms Invalid Interpretation Code [employer] Work Phone: [phone] Pulse (Heart Rate) 78 /min Invalid Interpretation Code [employer] Work Phone: [phone] QRS axis, electrocardiogram -9 deg Invalid Interpretation Code [facility] Work Phone: [phone] QRS Duration 84 ms Invalid Interpretation Code [facility] Work Phone: [phone] QRS duration, electrocardiogram 84 ms Invalid Interpretation Code [facility] Work Phone: [phone] QT Interval new path ms Invalid Interpretation Code [facility] Work Phone: [phone] QT interval, electrocardiogram new path ms Invalid Interpretation Code [facility] Work Phone: [phone] QTc Naylor 429 ms Invalid Interpretation Code [facility] Work Phone: [phone] T [place] 25 deg Invalid Interpretation Code [facility] Work Phone: [phone] T wave axis, electrocardiogram 25 deg Invalid Interpretation Code [facility] [employer] Work Phone: [phone] Discharge Summaryon 02-22-20 17 Discharge Summary Send Summary:Note Recipients: Prosper Hay, BURKEischarge:Summary:Admi ssion Date: .14-Feb-2017 23:05:00Discharge Date: [id number] Physician at Discharge: Prosper HayAdmission Reason: Bipolar d/o.(1)Final Discharge Diagnoses: bipolar disorderProcedures: noneCondition at Discharge: FairDisposition at Discharge: .HomeVital Signs: T P R BP NwV5Pnzfz 36.5 16 100%Date/Time 02/21 5:58 02/21 5:58 02/21 5:58Range (36.5C - 37.1C ) (16 - 18 ) (98% - 100% )Highest temp of 37.1 C was recorded at 02/20 18:21Hospital Course:Mrs. Oliva is a 66 yo female with a PPH of bipolar I disorder wasad[facility] due to difficult outpatient medication management. Sheinitially presented to [facility] ED with AJITH (cr 3.56, base 1.1) [...] states she plans on doing activities at [facility] near her house and will follow up with Dr. Hay as an outpatienton March 04. She will be discharged home to live with and son. Shewill have in-home nursing care and will pick her up. We have discussedthe eventual need of a higher level of care in the future and patient andhusband understand this.MSE on day of discharge:General: 67 [...] ofaggression/violence towards others.? Protective factors include marriage,children, pentecostal beliefs, social supports. Treatment team plans to modifyrisk by instructing to make home safe (pistol is stored elsewhere),medication management, establishment with new outpatient doctor, access toin-home medical support, and information about additional [facility] and adult daycare.Psychiatric Care:Psychiatric Continuing Care Plan:Reason [...] outpatient provider advises otherwise.Questions After Hospitalization:Phone Number: [address] For Results of Any Studies Pending at Discharge: Phone: [facility] [employer] [place] Discharge Information:and Continuing Care:Discharge Instructions:Activity: activity as tolerated. May shower.. May not drive.Nutrition/Diet: regularFollow Up Appointments:Follow-Up Appointment 01: Physician/Dept/Service: Dr. Hay [facility] Reason for Referral: Follow-up psychiatry Scheduled Date/Time: 04-Mar-2017 16:00 Location: [address], [place] [address] [phone] Appointment 02: Physician/Dept/Service: Please follow up with [...] list of all of the prescription andnonprescription (kbgx-viz-nlakymh) medicines you are taking, as well as anyproducts such as vitamins, minerals, or other dietary supplements. You shouldbring this list with you each time you visit a doctor or if you are admitted toa hospital. It is also important information to carry with you in case ofemergencies..: Electronic Signatures:Catrachito Madrid (DO (Resident)) (Signed 21-Feb-2017 09:36) Authored: Send Summary, Summary Content, Ongoing Care, AttestationProsper Hay) (Signed 21-Feb-2017 11:41) Authored: Send Summary, Summary Content, Psychiatric Care, Ongoing Care,Attestation Co-Signer: Summary Content, Ongoing Care, AttestationAline Carrasco (CLIN COOR) (Signed 21-Feb-2017 15:35) Authored: Send Summary, Summary Content, Psychiatric Care, Ongoing CareLast Updated: 21-Feb-2017 15:35 by Aline Carrasco (CLIN COOR)References:1. 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 12-24-2016 Alanine aminotransferase (ALT) 18 U/L Invalid Interpretation Code [facility] Work Phone: [phone] Albumin 2.8 g/dL Low [facility] Work Phone: [phone] Alkaline phosphatase (ALP) 56 U/L Invalid Interpretation Code [facility] Work Phone: [phone] Aspartate aminotransferase (AST) 22 U/L Invalid Interpretation Code [facility] Work Phone: [phone] Bilirubin (direct) 0.11 mg/dL Invalid Interpretation Code [facility] Work Phone: [phone] Bilirubin (total) 0.30 mg/dL Invalid Interpretation Code [facility] Work Phone: [phone] Erythrocytes (RBC) 3.56 10*6/uL Low [facility] Work Phone: [phone] Hematocrit (HCT) 35.1 % Low [employer] Work Phone: [phone] Hemoglobin (HGB) 11.6 g/dL Low [employer] Work Phone: [phone] MCH 32.6 pg High [employer] Work Phone: [phone] MCHC 33.0 g/dL Invalid Interpretation Code [employer] Work Phone: [phone] MCV 98.6 fL Invalid Interpretation Code [employer] Work Phone: [phone] Platelets 158 10*3/mm3 Invalid Interpretation Code [employer] Work Phone: [phone] PMV by Tomas 11.0 fL Invalid Interpretation Code [employer] Work Phone: [phone] Protein 6.7 g/dL Invalid Interpretation Code [employer] Work Phone: [phone] RDW-CA 15.9 % High [employer] Work Phone: [phone] WBC (Leukocytes) 5.5 10*3/uL Invalid Interpretation Code [employer] Work Phone: [phone] 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 10-17-2016 BUN/Creatinine Ratio 21 mg/mg Invalid Interpretation Code [employer] Work Phone: [phone] Calcium 9.6 mg/dL Invalid Interpretation Code [employer] Work Phone: [phone] Chloride 100 mmol/L Invalid Interpretation Code [employer] Work Phone: [phone] CO2 31 mmol/L Invalid Interpretation Code [employer] Work Phone: [phone] Creatinine 1.4 mg/dL High [employer] Work Phone: [phone] Globulin 2.4 g/dL Invalid Interpretation Code [employer] Work Phone: [phone] Glucose 118 mg/dL High [employer] Work Phone: [phone] Glucose mass conc 118 mg/dL High [employer] Work Phone: [phone] Potassium 4.5 mmol/L Invalid Interpretation Code [employer] Work Phone: [phone] Sodium 140 mmol/L Invalid Interpretation Code [facility] Work Phone: [phone] Urea nitrogen 30 mg/dL High [facility] Work Phone: [phone] 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 09-07-2016 Cholesterol 177 mg/dL Invalid Interpretation Code [facility] Work Phone: [phone] HDL Cholesterol 66 mg/dL High [facility] Work Phone: [phone] LDL Cholesterol 90 mg/dL Invalid Interpretation Code [facility] Work Phone: [phone] Thyroid stimulating hormone (TSH) 2.04 u[iU]/mL Invalid Interpretation Code [facility] Work Phone: [phone] Thyroxine (T4) 6.1 ug/dL Invalid Interpretation Code [facility] Work Phone: [phone] Triglyceride 104 mg/dL Invalid Interpretation Code [facility] Work Phone: [phone] Cholesterol in HDL mass conc 66 mg/dL [facility] Work Phone: [phone] Cholesterol in LDL mass conc 90 mg/dL [facility] Work Phone: [phone] Cholesterol mass conc 177 mg/dL [facility] Work Phone: [phone] Triglyceride mass conc 104 mg/dL [facility] Work Phone: [phone] Vital Signs Date Time Vital Sign Value Performing Clinician Facility 03-22-2025 14:52-0400 Body mass index (BMI) [Ratio] 25.69 kg/m2 Prosper Hay MD PhD Work Phone: [facility] 03-22-2025 14:52-0400 Body temperature 96.4 [degF] Prosper Hay MD PhD Work Phone: [facility] 03-22-2025 14:52-0400 Body weight 55.75 kg Prosper Hay MD PhD Work Phone: [facility] 03-22-2025 14:52-0400 Diastolic blood pressure 78 mm[Hg] Prosper Hay MD PhD Work Phone: [facility] 03-22-2025 14:52-0400 Heart rate 69 /min Prosper Hay MD PhD Work Phone: [facility] 03-22-2025 14:52-0400 Respiratory rate 18 /min Prosper Hay MD PhD Work Phone: [facility] 03-22-2025 14:52-0400 Systolic blood pressure 150 mm[Hg] Prosper Hay MD PhD Work Phone: [facility] 08-24-2024 14:05-0500 Body mass index (BMI) [Ratio] 24.26 kg/m2 Prosper Hay MD PhD Work Phone: [facility] 08-24-2024 14:05-0500 Body temperature 94.6 [degF] Prosper Hay MD PhD Work Phone: [facility] 08-24-2024 14:05-0500 Body weight 52.66 kg Prosper Hay MD PhD Work Phone: [facility] 08-24-2024 14:05-0500 Diastolic blood pressure 78 mm[Hg] Prosper Hay MD PhD Work Phone: [facility] 08-24-2024 14:05-0500 Heart rate 73 /min Prosper Hay MD PhD Work Phone: [facility] 08-24-2024 14:05-0500 Respiratory rate 16 /min Prosper Hay MD PhD Work Phone: [facility] 08-24-2024 14:05-0500 Systolic blood pressure 120 mm[Hg] Prosper Hay MD PhD Work Phone: [facility] 02-17-2024 12:56-0400 Body mass index (BMI) [Ratio] 25.02 kg/m2 Prosper Hay MD PhD Work Phone: [facility] 02-17-2024 12:56-0400 Body temperature 97.39 [degF] Prosper Hay MD PhD Work Phone: [facility] 02-17-2024 12:56-0400 Body weight 54.3 kg Prosper Hay MD PhD Work Phone: [facility] 02-17-2024 12:56-0400 Diastolic blood pressure 74 mm[Hg] Prosper Hay MD PhD Work Phone: [facility] 02-17-2024 12:56-0400 Heart rate 69 /min Prosper Hay MD PhD Work Phone: [facility] 02-17-2024 12:56-0400 Respiratory rate 18 /min Prosper Hay MD PhD Work Phone: [facility] 02-17-2024 12:56-0400 Systolic blood pressure 144 mm[Hg] Prosper Hay MD PhD Work Phone: [facility] 09-12-2022 09:55-0500 Body height 147.3 cm Inocente Deras APRN - SCHOOL INSPECTOR Work Phone: [employer] 09-12-2022 09:55-0500 Body mass index (BMI) [Ratio] 25.67 kg/m2 Inocente Deras APRN - SCHOOL INSPECTOR Work Phone: [employer] 09-12-2022 09:55-0500 Body temperature 97.5 [degF] Inocente Deras APRN - SCHOOL INSPECTOR Work Phone: [employer] 09-12-2022 09:55-0500 Body weight 55.7 kg Inocente Deras APRN - SCHOOL INSPECTOR Work Phone: [employer] 09-12-2022 09:55-0500 Diastolic blood pressure 59 mm[Hg] Inocente Deras APRN - SCHOOL INSPECTOR Work Phone: [employer] 09-12-2022 09:55-0500 Heart rate 74 /min Inocente Anderson SCHOOL INSPECTOR Work Phone: [employer] 09-12-2022 09:55-0500 Systolic blood pressure 129 mm[Hg] Inocente Deras APRN - SCHOOL INSPECTOR Work Phone: [employer] 08-26-2022 05:09-0500 Body temperature 97.59 [degF] Sagar Hendrickson MD Work Phone: [facility] [employer] 08-26-2022 05:09-0500 Diastolic blood pressure 68 mm[Hg] Sagar Hendrickson MD Work Phone: [facility] [employer] 08-26-2022 05:09-0500 Heart rate 77 /min Sagar Hendrickson MD Work Phone: [facility] [employer] 08-26-2022 05:09-0500 Respiratory rate 18 /min Sagar Hendrickson MD Work Phone: [facility] [employer] 08-26-2022 05:09-0500 SaO2% (BldA) [Mass fraction] 96 % Sagar Hendrickson MD Work Phone: [facility] [employer] 08-26-2022 05:09-0500 Systolic blood pressure 125 mm[Hg] Sagar Hendrickson MD Work Phone: [facility] [employer] 08-25-2022 06:00-0500 Body mass index (BMI) [Ratio] 25.25 kg/m2 Sagar Hendrickson MD Work Phone: [facility] [employer] 08-25-2022 06:00-0500 Body weight 54.8 kg Sagar Hendrickson MD Work Phone: [facility] [employer] 08-23-2022 05:51-0500 Body height 147.3 cm Sagar Hendrickson MD Work Phone: [facility] [employer] 08-20-2022 15:06-0500 Body mass index (BMI) [Ratio] 25.92 kg/m2 Inocente Quijano Work Phone: [facility] Work Phone: 08-20-2022 15:06-0500 Body surface area Derived from formula 1.49 m2 Inocente Quijano Work Phone: [facility] Work Phone: 08-20-2022 15:06-0500 Body temperature 98.3 [degF] Inocente Quijano Work Phone: [facility] Work Phone: 08-20-2022 15:06-0500 Body weight 56.25 kg Inocente Ayalaoff Work Phone: [facility] Work Phone: 08-20-2022 15:06-0500 Diastolic blood pressure 64 mm[Hg] Inocente Ayalaoff Work Phone: [facility] Work Phone: 08-20-2022 15:06-0500 Heart rate 68 /min Inocente Ayalaoff Work Phone: [facility] Work Phone: 08-20-2022 15:06-0500 Respiratory rate 16 /min Inocente Ayalaoff Work Phone: [facility] Work Phone: 08-20-2022 15:06-0500 Systolic blood pressure 130 mm[Hg] Inocente Ayalaoff Work Phone: [facility] Work Phone: 08-20-2022 15:06-0500 0 1 Inocente Ayalaoff Work Phone: [facility] Work Phone: Comment on above: [employer] 03-27-2022 10:57-0400 Body height 147.32 cm Inocente Ayalaoff Work Phone: RK-Ymydkyyvxt-Utgng r [facility] Work Phone: 03-27-2022 10:57-0400 Body mass index (BMI) [Ratio] 25.97 kg/m2 Inocente Ayalaoff Work Phone: DE-Cbgtqxnhvj-Gkypk r [facility] Work Phone: 03-27-2022 10:57-0400 Body surface area Derived from formula 1.49 m2 Inocente Ayalaoff Work Phone: XP-Smhwqqdgvj-Afddu r [facility] Work Phone: 03-27-2022 10:57-0400 Body temperature 97.3 [degF] Inocente Ayalaoff Work Phone: GV-Nsisvwbivz-Mtasp r [facility] Work Phone: 03-27-2022 10:57-0400 Body weight 56.36 kg Inocente Ayalaoff Work Phone: KO-Wdtbmzpuap-Vhfvn r [facility] Work Phone: 03-27-2022 10:57-0400 Diastolic blood pressure 69 mm[Hg] Inocente Ayalaoff Work Phone: QK-Nzsodgvhbw-Dknil r [facility] Work Phone: 03-27-2022 10:57-0400 Heart rate 73 /min Inocente Ayalaoff Work Phone: GR-Nytmohwwet-Tciqj r [facility] Work Phone: 03-27-2022 10:57-0400 SaO2% (BldA) [Mass fraction] 98 % Inocente Ayalaoff Work Phone: XH-Cqauytxmai-Mpczy r [facility] Work Phone: 03-27-2022 10:57-0400 Systolic blood pressure 128 mm[Hg] Inocente Ayalaoff Work Phone: SJ-Arfobizenh-Puesw r [facility] Work Phone: 10-16-2021 14:07-0500 Body mass index (BMI) [Ratio] 25.71 kg/m2 Inocente Ayalaoff Work Phone: [facility] Work Phone: 10-16-2021 14:07-0500 Body surface area Derived from formula 1.48 m2 Inocente Ayalaoff Work Phone: [facility] Work Phone: 10-16-2021 14:07-0500 Body temperature 95.4 [degF] Inocente Andradeumoff Work Phone: [facility] Work Phone: 10-16-2021 14:07-0500 Body weight 55.79 kg Inocente Andradeumoff Work Phone: [facility] Work Phone: 10-16-2021 14:07-0500 Diastolic blood pressure 60 mm[Hg] Inocente Andradeumoff Work Phone: [facility] Work Phone: 10-16-2021 14:07-0500 Heart rate 72 /min Inocente Andradeumoff Work Phone: [facility] Work Phone: 10-16-2021 14:07-0500 Respiratory rate 14 /min Inocente Andradeumoff Work Phone: [facility] Work Phone: 10-16-2021 14:07-0500 Systolic blood pressure 120 mm[Hg] Inocente Andrdaeumoff Work Phone: [facility] Work Phone: 06-12-2017 15:35-0400 BMI (Body Mass Index) 22.63 kg/m2 Madhuri White [facility] Work Phone: 06-12-2017 15:35-0400 BP Diastolic 78 mm[Hg] [facility] Work Phone: 06-12-2017 15:35-0400 BP Systolic 122 mm[Hg] Madhuri White [facility] Work Phone: 06-12-2017 15:35-0400 Height 147.32 cm Madhuri White [facility] Work Phone: 06-12-2017 15:35-0400 Pulse (Heart Rate) 72 /min Madhuri White [facility] Work Phone: 06-12-2017 15:35-0400 Weight 49.12 kg Madhuri White [facility] Work Phone: 04-17-2017 11:46-0400 BMI (Body Mass Index) 21.94 kg/m2 Haraurora DeFinis [facility] Work Phone: 04-17-2017 11:46-0400 BP Diastolic 64 mm[Hg] Harumi DeFinis [facility] Work Phone: 04-17-2017 11:46-0400 BP Systolic 112 mm[Hg] Harumi DeFinis [facility] Work Phone: 04-17-2017 11:46-0400 Height 147.32 cm Haraurora DeFinis [facility] Work Phone: 04-17-2017 11:46-0400 Pulse (Heart Rate) 80 /min Haraurora DeFinis [facility] Work Phone: 04-17-2017 11:46-0400 Respiratory Rate 18 /min Haraurora DeFinalexandra [facility] Work Phone: 04-17-2017 11:46-0400 Weight 47.63 kg Haraurora DeFinalexandra [facility] Work Phone: Encounters Encounter Date Encounter Type Care Provider Facility Start: 04-02-[address] [facility] Facility: [facility] Start: 03-30-2025 Encounter for genera l adult medical examination without abnormal findings [facility] Start: 03-30-[address] [facility] Facility: [facility] Start: 03-22-2025 End: 03-22-2025 Office outpatient visit 25 minutes Prosper Hay MD PhD Work Phone: [facility] Comment on above: Bipolar disorder, in full remission, most recent episode mixed (Multi) Start: 03-22-2025 End: 03-22-[address] [facility] Start: 02-18-2025 End: 02-18-2025 ambulatory Libby Miedel Facility:[facility] Start: 02-08-2025 End: 02-08-2025 ambulatory Libby Miedel Facility:[facility] Start: 02-04-2025 ambulatory Libby Miedel Facility: [facility] Start: 02-03-2025 End: 02-03-2025 ambulatory Libby Miedel Facility:[facility] Start: 02-02-2025 End: 02-02-2025 ambulatory Libby Miedel Facility:[facility] Start: 01-25-2025 End: 01-25-2025 ambulatory Libby Miedel Facility:[facility] Start: 01-19-2025 End: 01-19-2025 ambulatory Libby Miedel Facility:[facility] Start: 10-01-2024 End: 10-01-2024 ambulatory Libby Miedel Facility:[facility] Start: 09-02-2024 End: 09-02-2024 ambulatory Libby Miedel Facility:[facility] Start: 08-24-2024 End: 08-24-2024 Office outpatient visit 25 minutes Prosper Hay MD PhD Work Phone: [facility] Comment on above: Bipolar disorder, in full remission, most recent episode mixed (Multi) Start: 08-24-2024 End: 08-24-2024 ambulatory [place] [facility] Start: 07-23-2024 End: 07-23-2024 ambulatory Libby Miedel Facility:[facility] Start: 04-06-2024 End: 04-06-2024 ambulatory Libby Miedel Facility:[facility] Start: 04-02-2024 End: 04-02-2024 ambulatory Libby Miedel Facility:[facility] Start: 02-17-2024 End: 02-17-2024 Office outpatient visit 40 minutes Prosper Hay MD PhD Work Phone: [facility] Comment on above: Bipolar disorder, in full remission, most recent episode mixed (Multi) Start: 2023 End: 2023 Office outpatient visit 15 minutes Prosper Hay MD PhD Work Phone: [facility] Comment on above: Bipolar disorder, in full remission, most recent episode mixed (CMS/HCC) Start: 10-28-2022 AUDIT Inocente Cardozo Tevin Work Phone: [facility] Work Phone: Start: 09-12-2022 End: 09-13-2022 ambulatory INOCENTE [facility] Start: 09-12-2022 End: 09-12-2022 Postop follow up visit related to original px Inocente Deras TRAVEL RN OR - SCHOOL INSPECTOR Work Phone: [facility] Comment on above: Pleural effusion (Pr imary Dx) Start: 09-09-2022 Telephone encounter Sagar peck MD Work Phone: [facility] Comment on above: Post-op Problem Start: 09-03-2022 Telephone encounter Sagar peck MD Work Phone: [facility] Comment on above: Other Start: 09-01-2022 Telephone encounter Hussein Lima TRAVEL RN OR - SCHOOL INSPECTOR Work Phone: [facility] Comment on above: Other (Page Out) Start: 08-26-2022 End: 08-27-2022 Evaluation and management of inpatient SAGAR GASPARRomel [facility] Start: 08-25-2022 End: 08-26-2022 Evaluation and management of inpatient INOCENTE [facility] Comment on above: Arrived Start: 08-25-2022 End: 08-25-2022 Evaluation and management of inpatient Ach Ed Xr Portable [facility] Comment on above: Arrived Start: 08-24-2022 End: 08-25-2022 Evaluation and management of inpatient INOCENTE [facility] Start: 08-24-2022 End: 08-24-2022 Evaluation and management of inpatient Ach Xr Portable 4 [facility] Comment on above: Arrived Start: 08-23-2022 End: 08-24-2022 Evaluation and management of inpatient INOCENTE DERAS [facility] Start: 08-23-2022 End: 08-23-2022 Evaluation and management of inpatient Ach Xr Portable 1 [facility] Comment on above: Arrived Start: 08-23-2022 End: 08-26-2022 Evaluation and management of inpatient SAGAR [facility] Start: 08-23-2022 End: 08-26-2022 Evaluation and management of inpatient Sagar Hendrickson MD Work Phone: [facility] Comment on above: Pleural effusion (Pr imary Dx); Pleural effusion, not elsewhere classified; S/P thoracotomy Start: 08-20-2022 Office outpatient vi sit 15 minutes Inocente Quijano Work Phone: [facility] Work Phone: Start: 08-15-2022 End: 08-15-2022 ambulatory [facility] Comment on above: Pleural effusion (Pr imary Dx) Start: 08-15-2022 Telephone encounter Sagar peck MD Work Phone: [facility] Comment on above: Surgery Scheduling Start: 08-15-2022 End: 08-15-2022 Office outpatient visit 15 minutes Sagar Hendrickson MD Work Phone: [facility] Comment on above: Pleural effusion (Pr imary Dx) Start: 07-25-2022 AUDIT Inocente atkins Work Phone: [facility] Work Phone: Start: 07-25-2022 End: 07-25-2022 ambulatory SAGAR [facility] Start: 07-22-2022 End: 07-23-2022 ambulatory SAGAR [facility] Start: 07-12-2022 End: 07-13-2022 ambulatory [facility] Start: 07-08-2022 End: 07-09-2022 ambulatory [facility] Start: 04-26-2022 AUDIT Inocente atkins Work Phone: [facility] [place] Work Phone: Start: 03-27-2022 Office outpatient vi sit 15 minutes Inocente Ayalaoff Work Phone: [facility] [place] Work Phone: Start: 02-25-2022 AUDIT Inocente Andradeumo ff Work Phone: [facility] [place] Work Phone: Start: 02-22-2022 AUDIT Inocente Andradeumo ff Work Phone: [facility] [place] Work Phone: Start: 01-30-2022 Rx Renewal Inocente Andradeumo ff Work Phone: [facility] Work Phone: Start: 10-16-2021 Office outpatient vi sit 15 minutes [facility]off [facility]: Start: 07-31-2021 Chart Update Inocente Andradeumo ff Work Phone: [facility]Ebbazelrkh[facility]tsox[facility] [place] Work Phone: Start: 07-23-2021 AUDIT Inocente Andradeumo ff Work Phone: [facility]Rdnmszsjwy[facility]Dreccv [facility] [place] Work Phone: Start: 05-15-2021 Office outpatient vi sit 15 minutes Inocente Andradeumoff Work Phone: [facility] Work Phone: Start: 07-13-2019 Patient encounter procedure Prosper Hay [facility] Work Phone: Start: 05-26-2019 Patient encounter procedure Prosper Hay [facility] Work Phone: Start: 12-31-2018 Patient encounter procedure Prosper Hay [facility] Work Phone: Start: End: Patient encounter status Inocente Quijano Work Phone: [facility] Work Phone: Procedures Date Procedure Procedure Detail Performing Clinician Start: 08-26-2022 Radiologic exam ches t single view Michelle Mckinney MD Work Phone: Start: 08-25-2022 Radiologic exam ches t single view Michelle Mckinney MD Work Phone: Start: 08-24-2022 Basic metabolic pane l calcium total Michelle Mckinney MD Work Phone: Start: 08-24-2022 Radiologic exam ches t single view Inocente Irvinger TRAVEL RN OR - SCHOOL INSPECTOR Work Phone: Start: 08-24-2022 Basic metabolic pane l calcium total Inocente Irvinger TRAVEL RN OR - SCHOOL INSPECTOR Work Phone: Start: 08-23-2022 End: 08-23-2022 Radiologic exam chest single view Inocente Irvinger TRAVEL RN OR - SCHOOL INSPECTOR Work Phone: Start: 08-23-2022 Basic metabolic pane l calcium total Inocente Deras TRAVEL RN OR - SCHOOL INSPECTOR Work Phone: Start: 08-23-2022 Level iv surg [...] 07-25-2020 Blood count complete auto&auto difrntl wbc Prosper Hay Start: 07-25-2020 Comprehensive metabo lic 2000 panel Prosper Hay Start: 07-25-2020 Valproate [Mass/volu me] in Serum or Plasma Prosper Hay Start: 04-17-2017 End: 04-17-2017 Ecg routine ecg [...] Atif Avalos MD Dilation and curettage Felipe Hay Hammer toe operation Prosper Hay Removal of nail plate Alphonse Hay Plan of Treatment Date Care Activity Detail Author Start: 2026 RSV High Risk: (Elde rly (60+) or Population) (1 - 1-dose 75+ series) RSV High Risk: (Elderly (60+) or Population) (1 - 1-dose 75+ series) [facility] Start: 10-18-2025 End: 10-18-2025 Patient encounter procedure 10/18/2025 10:00 AM EDT Office Visit [place] [address] [id number] Prosper Hay MD PhD [id number] [address] Department of Psychiatry-[facility] [place] [address] [facility] Start: 04-11-2025 Influenza vaccination Influenza Vacc ine (#1) [facility] Start: 08-24-2024 End: 10-22-2024 CBC W Auto Differential panel - Blood CBC and Auto Differential Lab Routine Bipolar disorder, in full remission, most recent episode mixed (Multi) Expected: 08/24/2024 (Approximate), Expires: 10/22/2024 [facility] Work Phone: Comment on above: Expected: 08/24/2024 (Approximate), Expires: 10/22/2024 Start: 08-24-2024 End: 10-22-2024 Comprehensive metabolic 2000 panel - Serum or Plasma Comprehensive metabolic panel Lab Routine Bipolar disorder, in full remission, most recent episode mixed (Multi) Expected: 08/24/2024 (Approximate), Expires: 10/22/2024 [facility] Work Phone: Comment on above: Expected: 08/24/2024 (Approximate), Expires: 10/22/2024 Start: 08-24-2024 End: 10-22-2024 Valproate [Mass/volume] in Serum or Plasma Valproic Acid Lab Routine Bipolar disorder, in full remission, most recent episode mixed (Multi) Expected: 08/24/2024 (Approximate), Expires: 10/22/2024 [facility] Service Area Work Phone: Comment on above: Expected: 08/24/2024 (Approximate), Expires: 10/22/2024 Start: 04-11-2024 COVID-19 Vaccine ( season) COVID-19 Vaccine ( season) [facility] Start: 04-11-2024 Influenza vaccination Influenza Vacc ine (#1) [facility] Start: 02-17-2024 End: 04-19-2024 CBC W Auto Differential panel - Blood CBC and Auto Differential Lab Routine Bipolar disorder, in full remission, most recent episode mixed (Multi) Expected: 02/17/2024 (Approximate), Expires: 04/19/2024 [facility] Work Phone: Comment on above: Expected: 02/17/2024 (Approximate), Expires: 04/19/2024 Start: 02-17-2024 End: 04-19-2024 Comprehensive metabolic 2000 panel - Serum or Plasma Comprehensive metabolic panel Lab Routine Bipolar disorder, in full remission, most recent episode mixed (Multi) Expected: 02/17/2024 (Approximate), Expires: 04/19/2024 [facility] Work Phone: Comment on above: Expected: 02/17/2024 (Approximate), Expires: 04/19/2024 Start: 02-17-2024 End: 04-19-2024 Valproate [Mass/volume] in Serum or Plasma Valproic Acid Lab Routine Bipolar disorder, in full remission, most recent episode mixed (Multi) Expected: 02/17/2024 (Approximate), Expires: 04/19/2024 [facility] Service Area Work Phone: Comment on above: Expected: 02/17/2024 (Approximate), Expires: 04/19/2024 Start: 02-17-2024 End: 02-17-2024 Patient encounter procedure 02/17/2024 1:00 PM EDT Office Visit [facility] [address] [address] [place] PhD [id number] [address] [place] [address] [facility] Start: 2023 End: 10-21-2023 CBC W Auto Differential panel - Blood CBC and Auto Differential Lab Routine Bipolar disorder, in full remission, most recent episode mixed (CMS/HCC) Expected: 2023 (Approximate), Expires: 10/21/2023 [facility] Work Phone: Comment on above: Expected: 2023 (Approximate), Expires: 10/21/2023 Start: 2023 End: 10-21-2023 Comprehensive metabolic 2000 panel - Serum or Plasma Comprehensive metabolic panel Lab Routine Bipolar disorder, in full remission, most recent episode mixed (CMS/HCC) Expected: 2023 (Approximate), Expires: 10/21/2023 [facility] Work Phone: Comment on above: Expected: 2023 (Approximate), Expires: 10/21/2023 Start: 2023 End: 10-21-2023 Valproate [Mass/volume] in Serum or Plasma Valproic Acid Lab Routine Bipolar disorder, in full remission, most recent episode mixed (CMS/HCC) Expected: 2023 (Approximate), Expires: 10/21/2023 [facility] Service Area Work Phone: Comment on above: Expected: 2023 (Approximate), Expires: 10/21/2023 Start: 04-11-2023 COVID-19 Vaccine ( season) COVID-19 Vaccine ( season) [facility] Start: 04-11-2023 Influenza vaccination Influenza Vacc ine (#1) [facility] Start: 02-18-2023 FUV, Provider: Prosper Hay, Status: Pen, Time: 1:30 PM FUV, Provider: Prosper Hay, Status: Pen, Time: 1:30 PM -[facility] Work Phone: Start: 09-12-2022 End: 09-12-2022 Patient encounter procedure 09/12/2022 Office Visit Cardiothoracic Surgery Inocente Deras, TRAVEL RN OR - SCHOOL INSPECTOR [address] [address] [facility] Start: 08-23-2022 End: 10-13-2022 Prepare RBC: 1 Units Prepare RBC: 1 Units Blood Bank Routine Pleural effusion Expected: 08/23/2022, Expires: 10/13/2022 [facility] Comment on above: Expected: 08/23/2022 , Expires: 10/13/2022 Start: 08-23-2022 End: 08-23-2022 Admission to same day surgery center 08/23/2022 Surgery Procedural Sagar Hendrickson MD [address] [place] [address] RIGHT VATS, PLEURODESIS, POSSIBLE PULMONARY DECORTICATION [78009 (CPT )] [facility] MAIN OR Comment on above: RIGHT VATS, PLEURODE SIS, POSSIBLE PULMONARY DECORTICATION [54015 (CPT )] Start: 08-23-2022 End: 08-23-2022 Decortication pulmonary total separate procedure DECORTICATION LUNG Pleural effusion, not elsewhere classified 08/23/2022 7:00 AM EST [facility] Operating Room Start: 08-23-2022 Subsequent hospital visit by physician 08/23/2022 Hospital Encounter Procedural Sagar Hendrickson MD [address] [place], [place] [id number] [facility] Start: 08-23-2022 End: 08-23-2022 Thoracoscopy w/pleurodesis THORACOSCOPY DIAGNOSTIC WITH PLEURODESIS Pleural effusion, not elsewhere classified 08/23/2022 7:00 AM EST [facility] Operating Room Start: 08-20-2022 FUV, Provider: Prosper Hay, Status: Pen, Time: 3:00 PM [facility], Provider: Prosper Hay, Status: Pen, Time: 3:00 PM -[facility] Work Phone: Start: 08-15-2022 End: 10-13-2022 Blood type and Crossmatch panel - Blood Type and Screen Lab Routine Pleural effusion Expected: 08/15/2022, Expires: 10/13/2022 [facility] Comment on above: Expected: 08/15/2022 , Expires: 10/13/2022 Start: 08-15-2022 End: 10-13-2022 CBC W Auto Differential panel - Blood CBC auto differential Lab Routine Pleural effusion Expected: 08/15/2022, Expires: 10/13/2022 [facility] Comment on above: Expected: 08/15/2022 , Expires: 10/13/2022 Start: 08-15-2022 End: 10-13-2022 Comprehensive Metabolic Panel with Mg Reflex Comprehensive Metabolic Panel with Mg Reflex Lab Routine Pleural effusion Expected: 08/15/2022, Expires: 10/13/2022 [facility] Work Phone: Comment on above: Expected: 08/15/2022 , Expires: 10/13/2022 Start: 08-15-2022 End: 10-13-2022 XR Chest 2 Views XR chest 2 views Imaging Routine Pleural effusion Expected: 08/15/2022, Expires: 10/13/2022 [facility] Comment on above: Expected: 08/15/2022 , Expires: 10/13/2022 Start: 05-21-2022 FUV, Provider: Prosper Hay, Status: Pen, Time: 2:00 PM [facility]UV, Provider: Prosper Hay, Status: Pen, Time: 2:00 PM -[facility] Work Phone: Start: 04-11-2022 Influenza vaccination Influenza Vacc ine (#1) [facility] Start: 03-27-2022 FUV, Provider: Prosper Hay, Status: Pen, Time: 11:00 AM [facility], Provider: Prosper Hay, Status: Pen, Time: 11:00 AM [facility] [place] Work Phone: Start: 10-16-2021 VIRFUVRUDDY, Provider : Prosper Hay, Status: Pen, Time: 2:00 PM [facility]: Prosper Hay, Status: Pen, Time: 2:00 PM [facility] Work Phone: Start: 02-21-2021 Medicare Annual Well ness Visit Medicare Annual Wellness Visit (AWV) [facility] Start: 06-17-2018 End: 06-17-2018 Appointment Appointment [facility] Work Phone: Start: 06-12-2017 End: 06-12-2017 Follow Up Appt 1 year Follow Up Appt 1 year [facility] Work Phone: Start: 06-12-2017 End: 06-12-2017 PFM PFM [facility] Work Phone: Start: 05-30-2017 End: 05-30-2017 Appointment Appointment [facility] Work Phone: Start: 04-17-2017 End: 04-17-2017 Chest x-ray X-Ray, Chest, PA & Lateral [facility] Work Phone: Start: 04-17-2017 End: 04-17-2017 Echocardiography Echocardiogram (complete) [facility] Work Phone: Start: 04-17-2017 End: 04-17-2017 Follow Up Appt 6 weeks Follow Up Appt 6 weeks [facility] Work Phone: Start: 04-17-2017 End: 04-17-2017 MMM MMM [facility] Work Phone: Start: 04-17-2017 End: 04-17-2017 Appointment Appointment [facility] Work Phone: Start: 04-17-2017 End: 04-17-2017 Chest x-ray X-Ray, Chest, PA & Lateral [facility] Work Phone: Start: 04-17-2017 End: 04-17-2017 Echocardiography Echocardiogram (complete) [facility] Work Phone: Start: 04-17-2017 End: 04-17-2017 Follow Up Appt 6 weeks Follow Up Appt 6 weeks [facility] Work Phone: Start: 04-17-2017 End: 04-17-2017 MMM MMM [facility] Work Phone: Start: 2016 Pneumococcal Vaccine : 65+ Years (1 - PCV) Pneumococcal Vaccine: 65+ Years (1 - PCV) [facility] Start: 2016 Screening for osteoporosis Bone Density Scan [facility] Start: 2011 RSV patient s and/or patients aged 60+ years (1 - 1-dose 60+ series) RSV patients and/or patients aged 60+ years (1 - 1-dose 60+ series) [facility] Start: 2001 Zoster Vaccines (1 of 2) Zoste r Vaccines (1 of 2) [facility] Start: 1991 Screening for malign ant neoplasm of breast Mammogram [facility] Start: 1973 DTaP/Tdap/Td Vaccine s (1 - Tdap) DTaP/Tdap/Td Vaccines (1 - Tdap) [facility] Start: 1970 DTaP/Tdap/Td Vaccine s (1 - Tdap) DTaP/Tdap/Td Vaccines (1 - Tdap) [facility] Start: 1969 Diabetes mellitus screening Diabetes Screening [facility] Start: 1969 Hepatitis C screening Hepatitis C Sc reening [facility] Start: 1952 MMR Vaccines (1 of 1 - Standard series) MMR Vaccines (1 of 1 - Standard series) [facility] Start: 02-20-1952 COVID-19 Vaccine (#1) COVID-19 Vacci ne (#1) [facility] Start: 1951 Hepatitis B Vaccines (1 of 3 - 3-dose series) Hepatitis B Vaccines (1 of 3 - 3-dose series) [facility] Start: 1951 Lipid panel Lipid Panel [facility] Start: 1951 Medicare Annual Well ness Visit Medicare Annual Wellness Visit (AWV) [facility] Start: 1951 Screening for malign ant neoplasm of colon [facility] Start: 1951 Screening for osteoporosis Bone Density Scan [facility] Start: 1951 Thyroid stimulating hormone measurement TSH Level [facility] Payers Date Payer Category Payer Medicare (Managed Care) [facility] MEDIC[facility] [id number] 2024 Self-pay 2023 Medicare [id number] 2016 Unknown 2016 Unknown [id number] 2016 Medicare [id number] 2016 Medicare [id number] 1951 Unknown [id number]. 2.1245 1951 Unknown [id number]. 2.1245 Unknown [id number] [id number]. 2.462 Unknown [id number] [id number]. 2.462 Unknown [id number] [id number]. 2.462 Unknown [id number] 2.16.840.1.663058.3.579. 2.462 Unknown [id number] 2.16.840.1.455067.3.579. 2.462 Unknown [id number] 2.16.840.1.662615.3.579. 2.462 Unknown [id number] [id number]. 2.462 Unknown [id number] 2.16.840.1.166540.3.579. 2.462 Unknown [id number] 2.16.840.1.782400.3.579. 2.462 Unknown [id number] 2.16.840.1.644942.3.579. 2.462 Unknown [id number] 2.16.840.1.576704.3.579. 2.462 Unknown [id number] 2.16.840.1.636266.3.579. 2.462 Unknown [id number] 2.16.840.1.764744.3.579. 2.462 Unknown [id number] [id number]. 2.462 Unknown [id number] [id number]. 2.462 Unknown [id number] [id number]. 2.462 Social History Date Type Detail Facility Start: 2023 End: 03-22-2025 Non-smoker Non-smoker [facility] Work Phone: Start: 2023 End: 02-17-2024 Tobacco smoking status NHIS Ex-smoker [facility] History of tobacco use Current smoker [facility] History of tobacco use Cigarette Smoker [facility] Work Phone: Start: 2023 End: 03-22-2025 Alcohol intake Ex-drinker (finding) [facility] Work Phone: Start: 2023 End: 03-22-2025 [facility] [employer] Work Phone: Has the [employer] threatened to shut off services in your home in past 12Mo No [facility] Work Phone: Do you belong to any clubs or organizations such as christianity groups, unions, fraternal or athletic groups, or school groups? Yes [facility] Work Phone: Are you now , , , , never or living with a partner? [facility] Work Phone: How often to you hav e a drink containing alcohol? Never [facility] Work Phone: Start: 07-06-2022 How many standard drinks containing alcohol do you have on a typical day? Patient does not drink [facility] Work Phone: Do you feel stress - tense, restless, nervous, or anxious, or unable to sleep at night because your mind is troubled all the time - these days [OSQ] To some extent [facility] Work Phone: (I/We) worried christofer er (my/our) food would run out before (I/we) got money to buy more. Never true [facility] Work Phone: Start: 1950 Sex Assigned At Not on file [facility] Start: 02-17-2024 Tobacco use and exposure Smokeless tobacco non-user [facility] Work Phone: Start: 08-05-2022 End: 08-24-2024 Exposure to SARS-CoV-2 (event) Not sure [facility] Start: 07-25-2022 End: 09-12-2022 Alcohol intake Lifetime non-drinker (finding) [facility] NEGATED: Highlighted row - - [facility] Work Phone: Functional Status Date Assessment Result Facility 03-22-2025 Patient Health Questionnaire 2 item (PHQ-2) [Reported] [facility] Work Phone: NEGATED: Highlighted row Functional performance Functional status health issues are not documented Disease [facility] Work Phone: Mental Status Date Assessment Result Facility NEGATED: Highlighted row Cognitive function [Interpretation] Cognitive status health issues are not documented Disease [facility] Work Phone: Clinical Notes 06-27-2022 to 03-22-2025 Prosper Hay MD PhD - 03/22/2025 3:00 PM Bart Hay MD PhD - 08/24/2024 2:00 PM Joel Hay MD PhD - 02/17/2024 1:00 PM Bart Hay MD PhD - 2023 3:30 PM EST Note Date & Type Note Facility 03-22-2025 History of Present illness Narrative Subjective Patient ID: Ricarda Oliva is a 74 y.o. female who presents for Follow-up. I am doing well. HPI: The patient reports that she is [...] Executive Function: intact. Insight: intact. Judgement: intact. All other systems reviewed and are negative. Psych Review of Symptoms: ADHD: Patient denied [...] symptoms. Sleep Concerns: Patient denied any symptoms. Objective Physical Exam Neurological: Mental Status: She is alert and oriented to person, place, and time. Comments: Mental Status Exam General: Appropriately groomed [...] intact. Insight: intact. Judgement: intact. Lab Review: No visits with results within 6 Month(s) from this visit. Latest known visit with results is: Orders Only on 09/14/2024 Component Date Value GLUCOSE 09/14/2024 86 UREA NITROGEN (BUN) 09/14/2024 20 CREATININE 09/14/2024 0.91 EGFR 09/14/2024 67 SODIUM 09/14/2024 139 POTASSIUM 09/14/2024 4.8 CHLORIDE 09/14/2024 103 CARBON DIOXIDE 09/14/2024 29 ELECTROLYTE BALANCE 09/14/2024 7 CALCIUM 09/14/2024 9.1 PROTEIN, TOTAL 09/14/2024 6.5 ALBUMIN 09/14/2024 4.0 BILIRUBIN, TOTAL 09/14/2024 0.5 ALKALINE PHOSPHATASE 09/14/2024 48 AST 09/14/2024 22 ALT 09/14/2024 22 WHITE BLOOD CELL COUNT 09/14/2024 5.6 RED BLOOD CELL COUNT 09/14/2024 3.73 (L) HEMOGLOBIN 09/14/2024 12.3 HEMATOCRIT 09/14/2024 36.6 MCV 09/14/2024 98.1 MCH 09/14/2024 33.0 MCHC 09/14/2024 33.6 RDW 09/14/2024 13.1 PLATELET COUNT 09/14/2024 270 MPV 09/14/2024 11.1 ABSOLUTE NEUTROPHILS 09/14/2024 2,682 ABSOLUTE LYMPHOCYTES 09/14/2024 2,106 ABSOLUTE MONOCYTES 09/14/2024 549 ABSOLUTE EOSINOPHILS 09/14/2024 202 ABSOLUTE BASOPHILS 09/14/2024 62 NEUTROPHILS 09/14/2024 47.9 LYMPHOCYTES 09/14/2024 37.6 MONOCYTES 09/14/2024 9.8 EOSINOPHILS 09/14/2024 3.6 BASOPHILS 09/14/2024 1.1 VALPROIC ACID 09/14/2024 65.3 Assessment/Plan Psychiatric Risk Assessment Violence Risk Assessment: [...] care is Dr. Libby Luque, , fax [phone]. Please follow up in October of 2025 and sooner virtually if needed as discussed today. For all urgent or emergency matters please call 911, go to urgent care or the emergency department of the nearest hospital. We reviewed your most recent and past valproate levels, cbc and chemistries. The plan is to continue Depakote 500 mg daily at bedtime and obtain valproate, cbc and cmp as discussed through her primary care. The FDA benefits and risks of Depakote including hepatic toxicity, platelet aggregation effects, drug interaction with lamotrigine and other medications, possible dyskinesias and toxic epidermal necrolysis (TEN) syndrome were all discussed. Time: Prep time on date of the patient encounter: 5 minutes. Time spent directly with patient/family/caregiver: 20 minutes. Additional time spent on patient care activities: minutes. Documentation time: 5 minutes. Total time on date of patient encounter: 30 minutes. documented in this encounter [facility] Work Phone: 08-24-2024 History of Present illness Narrative Subjective [...] Your current primary care is Dr. Libby Luqeu, , fax [phone]. Please follow up in March of 2025 [...] encounter: 30 minutes. documented in this encounter [facility] Work Phone: 02-17-2024 History of Present [...] denied any symptoms. documented in this encounter [facility] Work Phone: 2023 History of Present [...] January of 2024. documented in this encounter [facility] Work Phone: 09-12-2022 History of Present illness Narrative Images from the original note were not included. [facility] Medical Group: [place] SURGEONS [place] [address] [facility] [address] [facility] [address] Dept: [phone] Dept Loc: [phone] Visit type: Established patient Reason for Visit: [...] DERECK Villanueva CNP documented in this encounter [facility] 09-12-2022 Evaluation + Plan note [...] -Path discussed briefly; final path per surgeon [facility] 09-12-2022 Miscellaneous Notes Associated Problem(s): [...] path per surgeon documented in this encounter [facility] 09-09-2022 Telephone encounter Note Case reviewed. Refill sent. Please notify patient. DERECK Trotter CNP 09/09/22 [facility] 09-09-2022 Miscellaneous Notes Case reviewed. Refill sent. Please notify patient. DERECK Trotter CNP 09/09/22 Pt states she is still having post op pain. Educated her on post op pain management listed below. She states she takes 1000mg Tylenol TID and only uses the Oxycodone for increased pain at night. Pt is requesting a refill of Oxycodone sent to [facility] in [place]. Please advise. Right minithoracotomy pulmonary decortication visceral [...] call her back. She goes to the [facility] in [place]. Thank you. documented in this encounter [facility] 09-09-2022 Telephone encounter Note Pt states she is still having post op pain. Educated her on post op pain management listed below. She states she takes 1000mg Tylenol TID and only uses the Oxycodone for increased pain at night. Pt is requesting a refill of Oxycodone sent to [facility] in [place]. Please advise. Right minithoracotomy pulmonary decortication visceral [...] for at least 20 minutes before reapplying. [facility] 09-09-2022 Telephone encounter Note Patient is calling in and waking for a refill on the Oxycodone medication. Please call her back. She goes to the [facility] in [place]. Thank you. [facility] 09-03-2022 Telephone encounter Note Spoke with patient. [...] does not improve. DERECK Trotter CNP 09/03/22 [facility] Work Phone: 09-03-2022 Miscellaneous Notes Spoke with [...] do Please advise documented in this encounter [facility] 09-03-2022 Telephone encounter Note Patient had a VATS on 08/23/22 Patient calling in and states she has some leg swelling in both and asking what she needs to do Please advise [facility] 09-01-2022 Telephone encounter Note Spoke with patient [...] questions or concerns. DERECK Berry CNP 09/01/22 [facility] 09-01-2022 Miscellaneous Notes Spoke with [...] caller requesting page:Ricarda Phone Number of caller: [phone] Facility requesting page: Patient Reason for Page: Severe pain, SOB. Surgery 08/23 for Right thoracotomy, decortication, and pleurodesis. Provider paged: [facility] Name of paged provider: [facility]oth[facility] Page Placed to #: On-Call Finder Time Page was sent or provider contacted: 10:10 AM Page Content: Pt Dylon Navarreteler 1950 states she had SX 08/23 for right thoracotomy, decortication, and pleurodesis. Pt c/o severe pain in Right Lung area and SOB. Pt can be reached at [phone] Please advise documented in this encounter [facility] 09-01-2022 Telephone encounter Note Name of caller requesting page:Ricarda Phone Number of caller: [phone] Facility requesting page: Patient Reason for Page: Severe pain, SOB. Surgery 08/23 for Right thoracotomy, decortication, and pleurodesis. Provider paged: [facility] Name of paged provider: [facility] Cardiothoracic Surgery Page Placed to #: On-Call Finder Time Page was sent or provider contacted: 10:10 AM Page Content: Pt Dylon Oliva 1950 states she had SX 08/23 for right thoracotomy, decortication, and pleurodesis. Pt c/o severe pain in Right Lung area and SOB. Pt can be reached at [phone] [facility] 08-26-2022 Note Attestation signed by Sagar Hendrickson MD at 08/27/2022 9:37 AM I independently saw and evaluated the patient - including reviewing the labs, imaging studies, and available documentation. I agree with the findings and plan of care as documented by the resident/SENIOR SOFTWARE MANAGER/RETIREMENT ASSISTANT/PA, unless otherwise noted. Please do not hesitate [...] Your Medications These medications were sent to [facility] - [place], [place] - [address] [place] [address] oxyCODONE 5 MG immediate release tablet DIET: Adult diet Regular ACTIVITY: No heavy lifting. COMPLEXITY OF FOLLOW UP: [x] Moderate Complexity: follow up within 7-14 calendar days (04095) [] Severe Complexity: follow up within 7 calendar days (44364) FOLLOW UP TESTING, PENDING RESULTS OR REFERRALS AT TRANSITIONAL CARE VISIT: [] Yes [x] No PENDING STUDIES: DISPOSITION: Home FACILITY/HOME CARE AGENCY NAME: Follow up with Inocente Deras, TRAVEL RN OR - SCHOOL INSPECTOR [address] [address] Follow up on 09/12/2022 Time: 10:00am, Post-op [...] SIGNED: Sagar Dorman MD 08/26/2022, 5:32 PM [facility] 08-26-2022 Nurse Note Pt. Alert and oriented. PIV's have been removed. monitor technician has been removed. AVS printed, reviewed, and given to patient. All questions and concerns have been addressed. Pt. Left unit ambulatory. Medications will be picked up from pharmacy. All belongings were given to patient. [facility] 08-26-2022 Nurse Note Pt. Alert and oriented. PIV's have been removed. monitor technician has been removed. AVS printed, reviewed, and given to patient. All questions and concerns have been addressed. Pt. Left unit ambulatory. Medications will be picked up from pharmacy. All belongings were given to patient. documented in this encounter [facility] 08-26-2022 Note Formatting of this n ote might be different from the original. Pt declining home care services. [facility] 08-26-2022 Note Formatting of this n ote might be different from the original. Pt declining home care services. [facility] 08-26-2022 Miscellaneous Notes Pt declining home care services. Care Managment Initial Assessment Date: 08/26/2022 Patient Name: Ricarda Oliva : 1950 Patient Information Source of Information: Patient Cognition/Language: WFL - Within Functional Limits Permission given to speak with patient corporate representative/caregiver as indicated: Confirmation of Payer with [...] Prescription Coverage: Yes Pharmacy Used: [facility] [place] Medication Management: Independent Transportation/Shopping: Independent Transportation [...] today if medically stable. Madhuri Salcedo RN Director Of Front Office following case for Discharge Needs. Awaiting x-ray [...] the lower chest cavity and a 24 Iranian Carrie drain was placed in the chest [...] end of report documented in this encounter [facility] 08-26-2022 History of Present illness [...] plan of care as documented by the resident/SENIOR SOFTWARE MANAGER/RETIREMENT ASSISTANT/PA, unless otherwise noted. Please do not hesitate [...] be monitored and followed by the diet semiconductor technician. CT SURGERY Progress Note PATIENT NAME: [...] MD General Surgery, PGY-2 #2789 PAGING: From -p (- weekends): Page me at [phone] From 6p-6a (-s): - Surg ICU Patients: Page [phone] - Surg Floor Patients: Page [phone] Physical Therapy Facility/Department: [facility] Physical Therapy Initial Evaluation NAME: Ricarda Oliva [...] Plan of Care supervision is transferred to [facility] Rehab Department Physical Therapist. CTS SURGERY Progress [...] tomorrow Michelle Mckinney MD General Surgery, PGY-2 #3226 PAGING: From 6a-6p (6a-10a weekends): Page me at [phone] From 6p-6a (-6a weekends): - Surg ICU Patients: Page [phone] - Surg Floor Patients: Page [phone] documented in this encounter [facility] 08-26-2022 Note Formatting of this n ote might be different from the original. Care Managment Initial Assessment Date: 08/26/2022 Patient Name: Ricarda Oliva : 1950 Patient Information Source of Information: Patient Cognition/Language: WFL - Within Functional Limits Permission given to speak with patient corporate representative/caregiver as indicated: Confirmation of Payer with [...] Prescription Coverage: Yes Pharmacy Used: [facility] [place] Medication Management: Independent Transportation/Shopping: Independent Transportation [...] today if medically stable. Madhuri Salcedo RN [facility] 08-26-2022 Note Formatting of this n ote might be different from the original. Care Managment Initial Assessment Date: 08/26/2022 Patient Name: Ricarda Oliva : 1950 Patient Information Source of Information: Patient Cognition/Language: WFL - Within Functional Limits Permission given to speak with patient corporate representative/caregiver as indicated: Confirmation of Payer with [...] Prescription Coverage: Yes Pharmacy Used: [facility], [place] Medication Management: Independent Transportation/Shopping: Independent Transportation Mode: [...] today if medically stable. Madhuri Salcedo RN [facility] 08-25-[address] SURGERY Progress Note PATIENT [...] telemetry Michelle Mckinney MD General Surgery, PGY-2 #7546 PAGING: From 6a-6p (6a- weekends): Page me at [phone] From 6p-6a (-s): - Surg ICU Patients: Page [phone] - Surg Floor Patients: Page [phone] [facility] 08-25-2022 Note 1. Right-sided chest tube without pneumothorax. 2. Progression of subcutaneous air in the right chest and neck. Report Dictated on Electronically Signed By: Sunday Ralph Electronically Signed Date/Time: 08/25/2022 12:57 AM [facility] 08-24-2022 Note CTS SURGERY [...] tomorrow Michelle Mckinney MD General Surgery, PGY-2 #7524 PAGING: From -6p (- weekends): Page me at [phone] From 6p- (- weekends): - Surg ICU Patients: Page [phone] - Surg Floor Patients: Page [phone] [facility] 08-23-2022 Hospital Discharge instructions Sagar Dorman MD - 08/23/2022 4:03 PM EST Images from the original note were not included. [facility] Medical Group: Cardiothoracic Surgery [address] [place] (T): #[phone] (F): #[phone] After lung surgery, it is common to [...] or dog food bags, or a vacuum glove cleaner. If your incision is in the [...] you start to have pain. Shoulder Stretch pricing specialist a doorway and place one arm against [...] you are prescribed oxycodone/acetaminophen (Percocet) or hydrocodone/acetaminophen (Rowley/Vicodin) be cautious when taking additional tylenol. No [...] pain. -Abdominal distention. documented in this encounter [facility] 08-23-2022 Note Formatting of this n ote might be different from the original. Director Of Front Office following case for Discharge Needs. [facility] 08-23-2022 Note Formatting of this n ote might be different from the original. Director Of Front Office following case for Discharge Needs. [facility] 08-23-2022 Note Patient: Ricarda daily Procedure Summary Date: 08/23/22 Room / Location: [facility] Operating Room Anesthesia Start: 705 Anesthesia [...] 08/23/22920 Resp 20 08/23/22920 SpO2 100 % 01/13/23 0921 Vitals shown include unvalidated device data. Anesthesia [...] opportunity for questions and acknowledgement of understanding. [facility] 08-23-2022 Note Patient: Ricarda daily Procedure Summary Date: 08/23/22 Room / Location: [facility] Operating Room Anesthesia Start: 705 Anesthesia [...] Resp 22 08/23/22 0920 SpO2 100 % 08/23/22919 Vitals shown include [...] once all PACU criteria has been met. [facility] 08-23-2022 Note Formatting of this n ote might be different from the original. Awaiting x-ray to preform ordered x-ray. [facility] 08-23-2022 Note Formatting of this n ote might be different from the original. Awaiting x-ray to preform ordered x-ray. [facility] 08-23-2022 Note Peripheral IV Date/Time: 08/23/2022 7:10 AM Inserted by: DERECK Lew CRNA Placement Needle size: 18 G Laterality: right Location: forearm Site prep: alcohol Technique: anatomical landmarks Attempts: 1 [facility] 08-23-2022 Note Formatting of this n ote might be different from the original. Report given to Ivania. [facility] 08-23-2022 Note Formatting of this n ote might be different from the original. Report given to Ivania. [facility] 08-23-2022 Note Peripheral Block Time Out: 08/23/2022 6:52 AM Start time: 08/23/2022 6:52 AM End time: 08/23/2022 6:55 AM Reason for block: at surgeon's request and post-op pain management Staffing Performed: WATCHSTANDER Resident/WATCHSTANDER: DERECK Forman CRNA Preanesthetic Checklist Completed: patient identified, IV checked, site marked, risks and benefits discussed, surgical consent and timeout performed Region: Truncal Primary: Serratus Anterior Peripheral Block Patient position: supine Prep: ChloraPrep Patient monitoring: heart rate, compliance monitor, continuous pulse ox and continuous capnometry O2: [...] changes noted and No symptoms of toxicityMedications cmxKDAZOiecgn-alnlanpzrjb-efmmxhz rine (TAP) syringe - Transabdominal Plane 10 mL - 08/23/2022 6:52:00 AM bupivacaine liposome (Exparel) 1.3 % injection - Injection 133 mg - 08/23/2022 6:52:00 AM [facility] 08-23-2022 Note Peripheral Block Time Out: 08/23/2022 6:35 AM Patient location during procedure: pre-op Start time: 08/23/2022 6:35 AM End time: 08/23/2022 6:40 AM Reason for block: procedure for pain and Acute pain service Staffing Performed: WATCHSTANDER Resident/WATCHSTANDER: DERECK Forman CRNA Preanesthetic Checklist Completed: patient identified, IV checked, site marked, risks and benefits discussed, surgical consent, monitors and equipment checked, pre-op evaluation and timeout performed Region: Truncal Primary: Erector Spinae Peripheral Block Patient position: sitting Prep: ChloraPrep Patient monitoring: heart rate, compliance monitor and continuous pulse ox O2: Nasal cannula [...] - IntraVENous 1 mg - 08/23/2022 6:35:00 WAxnuESJLMjpcqn-ljjtbziwwwf-wvioa phrine (TAP) syringe - Transabdominal Plane 20 mL - 08/23/2022 6:35:00 AM bupivacaine liposome (Exparel) 1.3 % injection - Injection 133 mg - 08/23/2022 6:35:00 AM [facility] 08-23-2022 Note Airway Date/Time: 08/23/2022 7:11 AM Urgency: scheduled Airway not difficult General Information and Staff Patient location during procedure: Procedural Resident/WATCHSTANDER: Michelle Cunningham APRN - WATCHSTANDER Performed: WATCHSTANDER Indications and Patient Condition Indications for airway [...] lips Number of attempts at approach: 1 [facility] 08-23-2022 Note Formatting of this n ote might be different from the original. Nasal airway removed. [facility] 08-23-2022 Note Formatting of this n ote might be different from the original. Nasal airway removed. [facility] 08-23-2022 Note Formatting of this n ote might be different from the original. Nasal airway placed, left nare. Pt tolerated without difficulty. [facility] 08-23-2022 Note Formatting of this n ote might be different from the original. Nasal airway placed, left nare. Pt tolerated without difficulty. [facility] 08-23-2022 Note Formatting of this n ote [...] the lower chest cavity and a 24 Iranian Carrie drain was placed in the chest cavity through the separate incision site the ribs were reapproximated with #2 Vicryl and the soft tissues were closed with Vicryl in layers and the skin with Monocryl the patient was extubated having tolerated the procedure well no airleak was evident on the Pleur-evac patient was transferred to the recovery room stable end of report [facility] Phone: 08-23-2022 Note Formatting of this n [...] the lower chest cavity and a 24 Iranian Carrie drain was placed in the chest cavity through the separate incision site the ribs were reapproximated with #2 Vicryl and the soft tissues were closed with Vicryl in layers and the skin with Monocryl the patient was extubated having tolerated the procedure well no airleak was evident on the Pleur-evac patient was transferred to the recovery room stable end of report [facility] Phone: 08-21-2022 Note Patient: Ricarda daily Procedure Information Date/Time: 08/23/22 0700 Procedures: RIGHT VATS, PLEURODESIS, POSSIBLE PULMONARY DECORTICATION (Right: Chest) DECORTICATION LUNG (Right: Chest) Location: [facility] OR [address] [place] [address] Operating Room Surgeons: Sagar Hendrickson MD Relevant [...] found for this or any previous visit. [facility] 08-15-2022 Telephone encounter Note Surg proc orders placed. DERECK Berry CNP 08/15/22 [facility] Work Phone: 08-15-2022 Miscellaneous Notes Surg proc orders placed. DERECK Berry CNP 08/15/22 Patient is scheduled for Right VATS pleurodesis possible pulmonary decortication on 08/23/22 at 7:[address] Hendrickson told patient they could do all pre-op testing morning of surgery since they live so far away Please place surg proc orders Thank you documented in this encounter [facility] 08-15-2022 Telephone encounter Note Patient is scheduled for Right VATS pleurodesis possible pulmonary decortication on 08/23/22 at 7:[address] Hendrickson told patient they could do all pre-op testing morning of surgery since they live so far away Please place surg proc orders Thank you [facility] 08-15-2022 History of Present illness Narrative Images from the original note were not included. [facility] [place] [address] [facility] [address] [facility] [address] Dept: [phone] Dept Loc: [phone] Patient was seen today via Telehealth by [...] stated that they are currently in the state [facility]. If the patient is a minor, permission [...] images and discussed the findings w/ the [employer]. I recommend a right VATS pleuradesis and [...] This note may have been dictated using [employer] Practice Edition 2.6 and/or [employer] Voice Recognition Feature. The document was proofread, however unrecognized voice recognition damage assessor errors may be present. documented in this encounter [facility] 07-25-2022 Note Orders Placed This [...] of Occurrences: 1 Standing Expiration Date: 07/25/2023 [facility] 07-09-2022 Note Orders Placed This E ncounter Procedures US guided thoracentesis Standing Status: Future Standing Expiration Date: 07/09/2023 Order Specific Question: Is the patient expected to be admitted post-procedure? Answer: No XR chest 2 views Standing Status: Future Standing Expiration Date: 07/09/2023 [facility] 06-27-2022 Note Orders Placed This E ncounter Procedures XR chest 2 views Standing Status: Future Standing Expiration Date: 06/27/2023 [facility] Evaluation note Diagnosis Bipolar disorder, in full remission, most recent episode mixed (CMS/HCC) documented in this encounter [facility] Work Phone: Evaluation note* Diagnosis Bipolar disorder, in full remission, most recent episode mixed (Multi) documented in this encounter [facility] Work Phone: Evaluation note* Diagnosis Pleural effusion- Primary Unspecified pleural effusion Pleural effusion, not elsewhere classified [facility] Diagnosis Pleural effusion- Primary Unspecified pleural effusion Pleural effusion, not elsewhere classified [facility] Diagnosis Pleural effusion- Primary Unspecified pleural effusion Pleural effusion Unspecified pleural effusion Pleural effusion, not elsewhere classified S/P thoracotomy Other postprocedural status [facility] Diagnosis Pleural effusion- Primary Unspecified pleural effusion [facility] Diagnosis Pleural effusion- Primary Unspecified pleural effusion [facility]* Diagnosis Bipolar disorder, in full remission, most recent episode mixed (Multi) documented in this encounter [facility] Work Phone: Evaluation note* Diagnosis Bipolar disorder, in full remission, most recent episode mixed (Multi) documented in this encounter [facility] Work Phone: History of Present illness Narrative* Ms. RICARDA OLIVA denies any suicidal or homicidal ideation or plans. * The patient reports that she has substantial issues with marital issues and conflicts with her brother and sister. [facility] Work Phone: History of Present illness Narrative* Ms. RICARDA OLIVA denies any suicidal or homicidal ideation or plans. * The patient reports that she has substantial issues with marital issues and conflicts with her brother and sister. [facility] Work Phone: History of Present illness Narrative* Ms. RICARDA OLIVA denies any suicidal or homicidal ideation or plans. * The patient reports that she has substantial issues with marital issues and conflicts with her brother and sister. [address] Work Phone: History of Present illness Narrative* Ms. RICARDA OLIVA denies any suicidal or homicidal ideation or plans. * The patient reports that she has substantial issues with marital issues and conflicts with her brother and sister. [facility] Work Phone: Reason for referral (narrative)* Consultation (Routine) - Authorized Specialty Diagnoses / Procedures Referred By Contac t Referred To Contact Psychiatry Diagnoses Bipolar disorder, in full remission, most recent episode mixed (CMS/HCC) Procedures Follow Up In Psychiatry [place]per [place] PhD [id number] Department [place] [address] Referral ID Status Reason Start Date Expiration Date V isits Requested Visits Authorized [id number] Authorized 2023 08/21/2024 1 1 [facility] Work Phone: Summary Purpose Family [...] Maternal Grandfather Status:Active FH: Parkinson's disease: Pat kayla Cousin(V17.2, Z82.0) Status:Active Unknown Family Member Name [...] and content) DATE CREATED AUTHOR 02/04/2018 [facility] DATE CREATED AUTHOR AUTHOR'S ORGANIZ ATION 03/03/2020 [facility] ([place]) DATE CREATED AUTHOR AUTHOR'S ORGANIZ ATION 11/17/2020 [facility] DATE CREATED AUTHOR AUTHOR'S ORGANIZ ATION 08/21/2022 [employer] DATE CREATED AUTHOR AUTHOR'S ORGANIZ ATION 12/22/2022 [facility] DATE CREATED AUTHOR AUTHOR'S ORGANIZ ATION 02/27/2023 [facility] DATE CREATED AUTHOR AUTHOR'S ORGANIZ ATION 09/17/2024 [facility] DATE CREATED AUTHOR AUTHOR'S ORGANIZ ATION 03/24/2025 [facility] DATE CREATED AUTHOR AUTHOR'S ORGANIZ ATION 03/31/2025 [facility] Care Teams (unrecognized sec tion and content) Systems Design Engineer Relationship Specialty Start Date End Date Libby Luque MD PCP - General 02/18/23 Systems Design Engineer Relationship Specialty Start Date End Date Libby Luque MD PCP - General 02/18/23 Systems Design Engineer Relationship Specialty Start Date End Date Libby Luque MD [address] [place] [phone] PCP - General 02/28/22 Systems Design Engineer Relationship Specialty Start Date End Date Libby Luque MD [address] [place] [phone] PCP - General 02/28/22 Systems Design Engineer Relationship Specialty Start Date End Date Libby Luque MD [address] [place] [phone] PCP - General 02/28/22 Systems Design Engineer Relationship Specialty Start Date End Date Libby Luque MD [address] [place] [phone] PCP - General 02/28/22 Systems Design Engineer Relationship Specialty Start Date End Date Libby Luque MD [address] [place] [place] [phone] PCP - General 02/28/22 Systems Design Engineer Relationship Specialty Start Date End Date Libby Luque MD [address] [place] [phone] PCP - General 02/28/22 Systems Design Engineer Relationship Specialty Start Date End Date Libby Luque MD [address] [place] [place] [phone] PCP - General 02/28/22 Systems Design Engineer Relationship Specialty Start Date End Date Libby Luque MD [address] [place] [phone] PCP - General 02/28/22 Systems Design Engineer Relationship Specialty Start Date End Date Libby Luque MD PCP - General 02/18/23 Libby Luque MD [address] [place] [phone] PCP - M[employer] Medicare [employer]age PCP 11/09/24 Reason for Visit (unrecogniz ed section and content) Reason Comments Follow-up Reason Onset Date Comments Surgery Scheduling 08/15/2022 Specialty Diagnoses / Procedures Referred By Contac t Referred To Contact Diagnoses Pleural effusion, not elsewhere classified Pleural effusion, not elsewhere classified [J90] Procedures VT THORACOSCOPY W/PLEURODESIS VT DECORTICATION PULMONARY TOTAL SEPARATE PROCEDURE RIGHT VATS, PLEURODESIS, POSSIBLE PULMONARY DECORTICATION DECORTICATION LUNG Sagar Hendrickson MD [address] [place] [address] [facility] Main Or [address] [place] [address] Referral ID Status Reason Start Date Expiration Date Visits Re quested Visits Authorized [id number] Reason Onset Date Comments Other 09/01/2022 [...] Rosales RN)1352 (Given - Provider: Angelica Rosales RN)2201 (Given - Provider: Whitney Carrasquillo RN) 0853 (Given - Provider: Meng Pastrana RN)1422 (Given - Provider: Latricia Ortiz RN)2055 (Given - Provider: Rakel Garcia LPN) 0828 [...] Fri08/23/22 at 1100, Indication of Use: Prophylaxis-DVT/PE 899 (Given - Provider: Angelica Rosales RN) 0853 [...] Midline or Central Line = 20 mL/lumen 899 (Given - Provider: Angelica Rosales RN)2202 (Given - Provider: Whitney Carrasquillo RN) 0900 (Given - Provider: Meng Pastrana RN)2058 (Given - Provider: Rakel Garcia LPN) 0828 [...] Fri08/23/22 at 1102 0214 (Given - Provider: Shaamr Casas, SAUL)0740 (Given - Provider: Angelica Rosales, SAUL)1816 (Given - Provider: Angelica Rosales RN) 1058 [...] Rosales RN)1816 (See Alternative - Provider: Angelica Rosales RN) 1058 (Given - Provider: Meng Pastrana RN)2245 (Given - Provider: Sumanth Barbour, SAUL) 1034 (Given - Provider: Divine Patino RN) [...] BE BASED ON THE PRIMARY CLINICAL RECORDS. [facility]. provides no warranty or guarantee of the accuracy or completeness of information in this document.
== END | disposition home or self-care (01) ==
PROVIDERS: PCP Family Medicine; Referring Provider Nurse Practitioner Acute Care; Visit Provider Nurse Practitioner Acute Care
DX: Z12.2 Encounter for screening for malignant neoplasm of respiratory organs (principal); F17.211 Nicotine dependence, cigarettes, in remission
CPT/HCPCS: 71271

== ENCOUNTER → 2025-04-15 | Outpatient (CLI) | payer MEDICARE, SELFPAY ==
--- NOTE | 2025-04-15 14:34 | BI_ITS ---
EXAM: SCRN MAMM (CAD)W/DEANNE BILAT DATE: 04/15/2025 CLINICAL HISTORY: F, Age 74 y/o , SCREENING TECHNIQUE: Procedure Code: [id number] Modality: MG Procedure: SCRN MAMM (CAD)W/DEANNE BILAT COMPARISON: Prior exam(s) dated 05/06/2022. FINDINGS: TISSUE DENSITY: The breasts are heterogeneously dense, which may obscure small masses. Bilateral Breast Mammographic Findings: There are no suspicious masses, suspicious cluster of microcalcifications, architectural distortion or secondary signs of malignancy identified in either breast. There has been no significant change since the prior study. No significant masses, calcifications or other abnormalities are identified. Benign vascular calcifications are seen in both breasts. Benign-appearing round microcalcifications are seen in both breasts. A benign macrocalcification is seen in the right breast. BI/SCRN MAMM (CAD)W/DEANNE BILAT IMPRESSION: Benign screening mammogram OVERALL FINAL ASSESSMENT BI-RADS 2: BENIGN RECOMMENDATION: Routine annual follow-up in 1 Year A letter with findings and recommendations will be mailed to the patient. Reading Location: [id number]
== END | disposition home or self-care (01) ==
LOC: OPBI 14:32
PROVIDERS: PCP Family Medicine; Referring Provider Family Medicine; Visit Provider Family Medicine
DX: Z12.31 Encounter for screening mammogram for malignant neoplasm of breast (principal)
CPT/HCPCS: 77063; 77067

== ENCOUNTER → 2025-07-20 | Outpatient (CLI) | payer MEDICARE, SELFPAY ==
--- NOTE | 2025-07-20 14:00 | CT_ITS ---
EXAM: CT Chest Without Intravenous Contrast CLINICAL INDICATION: NEW NODULE HIGH RISK PATIENT TECHNIQUE: Axial computed tomography images of the chest without intravenous contrast. This CT exam was performed using one or more of the following dose reduction techniques: automated exposure control, adjustment of the mA and/or kV according to patient size, and/or use of iterative reconstruction technique. RADIATION DOSE: CTDIvol = 7.9 mGy, DLP = 253.9 mGy-cm COMPARISON: CT low-dose 04/02/2025 FINDINGS: LUNGS AND PLEURAL SPACES: Emphysematous lung changes. Multiple nodules of the lingula, largest measuring up to 10 mm, stable. 3 mm nodule of the right middle lobe. 2 mm nodule of the right upper lobe. Right basilar atelectasis. Chronic right pleural fluid collection with pleural calcification, unchanged. No pneumothorax. No new suspicious pulmonary nodules. HEART: Unremarkable. No cardiomegaly. No significant pericardial effusion. No significant coronary artery calcifications. BONES/JOINTS: Unremarkable. No acute fracture. SOFT TISSUES: Unremarkable. VASCULATURE: Scattered calcified atherosclerotic disease of aorta. No thoracic aortic aneurysm. LYMPH NODES: Unremarkable. No enlarged lymph nodes. CT/Chest without Contrast IMPRESSION: Stable exam. No new suspicious pulmonary nodules. Unchanged right basilar ate lectasis and pleural effusion. Reading Location: [facility]
== END | disposition home or self-care (01) ==
LOC: CT 13:49
PROVIDERS: PCP Family Medicine; Referring Provider Nurse Practitioner Acute Care; Visit Provider Nurse Practitioner Acute Care
DX: R91.8 Other nonspecific abnormal finding of lung field (principal)
CPT/HCPCS: 71250